=== PATIENT | female | born 2000 | race Caucasian/White ===

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

== ENCOUNTER 2020-01-12 15:27 | Emergency (ER) | payer MEDICAID, SELFPAY ==
[2020-01-02 14:19] VITALS: BMI 31.8
[2020-01-12 15:28] VITALS: BP 123/77; PULSE 81; RESP 14; TEMP 36.6; O2SAT 99; BMI 30.7
--- NOTE | 2020-01-12 16:09 | CT_ITS ---
STUDY: CT ABDOMEN AND PELVIS WITH CONTRAST REASON FOR EXAM: Female, 19 years old. EPIGASTRIC/RUQ PAIN. N/V RADIATION DOSAGE (If Supplied By Facility): CTDIvol = ( 12.95 ) mGy, DLP = ( 694.32 ) mGycm TECHNIQUE: Transaxial images were obtained from the dome of the diaphragm to the symphysis pubis with oral contrast. Oral and amp; IV Gastrografin and amp; 100mL Isovue-300 was administered. Sagittal and coronal images were reconstructed. Individualized dose optimization techniques were used for this CT. COMPARISON: 06/07/2017. FINDINGS: The visualized lung bases are unremarkable. The visualized portions of the heart are within normal limits. Normal liver. Normal gallbladder and extrahepatic biliary system. Normal spleen. Normal pancreas. Normal bilateral adrenal glands. Normal right kidney. Normal left kidney. Normal visualized stomach. Normal small intestine. Normal colon. The appendix is visualized and appears normal. Normal abdominal aorta. Normal inferior vena cava. Normal retroperitoneum. Normal urinary bladder. Normal visualized uterus. IUD in normal position. There is a 3.8 cm cystic mass of the left ovary, pelvic ultrasound recommended. Normal abdominal wall. Normal osseous structures. CT/Abdomen/Pelvis WITH Contrast IMPRESSION: There is a 3.8 cm cystic mass of the left ovary, pelvic ultrasound recommended. Otherwise no definite acute or significant abnormality seen. Electronically Signed: Raul East MD at 18:14 EDT , Service support ,
--- NOTE | 2020-01-12 16:15 | ED.VISSUMM ---
- ER Visit Summary Date of Service: 01/12/20 Chief Complaint: [Abdominal pain] History of Present Illness: The patient is a 19 F [presents the emergency department abdominal pain that started last evening around 9 PM. Patient describes the pain as continuous and sharp to the epigastric region, radiates down towards the right lower quadrant and right upper quadrant. At times the pain is made worse by breathing. She denies any fever. She denies nausea or vomiting. She is had no diarrhea. Her last menstrual period was December 22. She denies any abnormal vaginal discharge or bleeding. She denies urinary symptoms. She is never had pain like this before. Patient has no medical history.] Physical Examination: [HEENT-PERRLA, EOMI. Cranial nerves II through XII grossly intact. TMs clear. Mucous membranes moist. No adenopathy. Cardiovascular-regular rate and rhythm without murmur or ectopy Lungs-clear to auscultation, chest wall stable without crepitus or subcu emphysema Abdomen-normoactive bowel sounds, soft. Patient has tenderness that is mild in the epigastric region and right upper quadrant. Patient also with tenderness and guarding to the right lower quadrant over McBurney's. No rebound or rigidity noted. Extremities-intact ?4, normal range of motion, normal pulses, atraumatic] Test Results: [CBC with differential obtained was normal. Chemistries were normal. LFTs were normal. Lipase was 128. Urine normal. hCG negative. CT scan of the abdomen pelvis with IV and p.o. contrast showed a 3.8] centimeter mass of the left ovary and recommended getting an ultrasound. Emergency Department Course and Treatment: [On the department patient received morphine 4 mg IV and Zofran 4 mg IV.] Treatment Plan: [I do not feel an emergent ultrasound of the pelvis is indicated at this time as she has [place] no pain to the left lower quadrant. All her pain is essentially above the umbilicus and right lower quadrant. Patient will follow-up with her [employer] [facility] to have a repeat pelvic ultrasound. Patient also has history of ovarian cysts in 3 years ago had an ultrasound that showed multiple cysts. Patient denies anything for pain for home. Patient to follow-up with her primary care physician in 3 to 5 days.] Disposition: [Discharged home in stable condition. Patient advised to return if worsening pain, fever, vomiting, or condition should worsen anyway] Impression: [Abdominal pain-etiology uncertain] This note was generated with [employer] dictation software. It may contain incorrect words, spelling, and punctuation that were not noted in review of the chart prior to signing ED Disposition - Plan for ED Patient: Referrals: Carolann Breen MD [Primary Care Provider] -
[2020-01-12 16:27] LABS: Absolute Lymphocyte Count 3.11 X10^3/uL (0.83-4.51); Absolute Neutrophil Count 4.4 X10^3/uL (2.0-7.7); Basophil# 0.02 X10^3/uL; Basophil% 0.2 % (0-1); Eosinophil# 0.03 X10^3/uL; Eosinophils% 0.4 % (0-5); Hematocrit 40.9 % (37-47); Hemoglobin 13.2 g/dL (12.0-15.0); Lymphocyte # 3.11 X10^3/ul (4.0); Lymphocyte % 37.9 % (19-41); Mean Corp Hgb Conc 32.3 g/dL (32-36); Mean Corpuscular Hgb 26.2 pg (27.0-32.0); Mean Corpuscular Volume 81.3 fL (81-99); Mean Platelet Vol. 9.5 fl (6.2-12.0); Monocyte# 0.64 X10^3/uL; Monocyte% 7.8 % (0-10); NRBC Flagged by Analyzer 0 % (0-5); Neutrophil % 53.6 % (47-70); Platelet Count 290 K/mm3 (150-450); RBC Distribution Width SD 47.7 fl (35.1-43.9); Red Blood Count 5.03 M/mm3 (4.2-5.4); White Blood Count 8.2 K/mm3 (4.4-11.0)
[2020-01-12] MEDS: Morphine 4 MG/ML Syringe IV (16:32)
[2020-01-12] MEDS: 0.9% Normal Saline 1,000 ML 125 ML IV (16:32)
[2020-01-12] MEDS: Ondansetron 4 MG/2 ML Vial IV (16:33)
[2020-01-12 16:39] LABS: Internal QC Validated? YES +Cl - CLEAR BKGD; Pregnancy, Serum, hCG Quali. NEGATIVE Negative
[2020-01-12 16:46] LABS: AST(SGOT) 13 U/L (15-37); Alanine Aminotransfer ALT/SGPT 20 U/L (13-56); Alkaline Phosphatase 80 U/L (45-117); Anion Gap 4 (5-15); BUN 8 mg/dL (7-18); BUN/Creat Ratio 9.4 RATIO (10-20); Chloride 108 mmol/L (98-107); Creatinine, Serum 0.85 mg/dL (0.55-1.02); EST Glomerular Filtration Rate 91 mL/min (>60); Est Glom Filt Rate - Afr Amer 110 mL/min (>60); Estimated Creatinine Clearance 91.93 ml/min; Globulin 3.9 g/dL (2.2-4.2); Glucose 70 mg/dL (74-106); Lipase 128 U/L (73-393); Potassium 3.7 mmol/L (3.5-5.1); Protein, Total 7.9 g/dL (6.4-8.2); Sodium Level 139 mmol/L (136-145)
[2020-01-12 17:14] LABS: Bacteria 0 SEEN /hpf (None Seen); Mucous, Urine 0 SEEN /hpf (<or=2+); Red Blood Cells-Urine 0 SEEN /hpf (0-5)
[2020-01-12 17:18] LABS: Color, Urine Yellow (Yellow); Glucose, Dipstick Normal (Normal); Ketone-Dipstick Negative (Negative); Leukocyte Esterase-Dipstick 25 /ul (Negative); Nitrite-Dipstick Negative (Negative); Occult Blood-Urine Negative /ul (Negative); Protein-Dipstick 15 mg/dl (Negative); Urine Bilirubin Dipstick Negative (Negative); Urine Clarity Clear (Clear); Urine Urobilinogen Normal (Normal)
[2020-01-12 18:09] LABS: Squamous Epithelial Cells - UA 0-5 SEEN /hpf (5-10); White Blood Cells 0-5 SEEN /hpf (0-5)
--- NOTE | 2020-01-12 18:44 | ED.DEP ---
ED Disposition - Plan for ED Patient: Instructions: ED Abdominal Pain Unkn Cause Fem Referrals: Carolann Breen MD [Primary Care Provider] - 3-5 Days Additional Instructions: Follow up with your [facility] to have a pelvic ultrasound to evaluate the left ovary cystic mass
[2020-01-12 18:54] VITALS: PULSE 80; RESP 16; O2SAT 98
== END 2020-01-12 18:56 | disposition home or self-care (01) ==
PROVIDERS: Emergency Provider Emergency Medicine; PCP Pediatrics
DX: R10.13 Epigastric pain (principal); R10.11 Right upper quadrant pain; R10.31 Right lower quadrant pain; Z72.0 Tobacco use
CPT/HCPCS: 74177; 80053; 81001; 83690; 84703; 85025; 96361; 96374; 96375; 99284; J7030; Q9967; A4216; J2405

== ENCOUNTER 2020-04-17 19:59 | Emergency (ER) | payer MEDICAID, SELFPAY ==
[2020-04-17 20:00] VITALS: BP 131/81; PULSE 110; RESP 18; TEMP 38.3; O2SAT 97; BMI 28.3
[2020-04-17] MEDS: 0.9% Normal Saline 1,000 ML 1000 ML IV (21:19)
[2020-04-17] MEDS: Ibuprofen 400 MG Tablet 800 MG PO (21:19)
[2020-04-17 21:29] LABS: Absolute Neutrophil Count 8.3 X10^3/uL (2.0-7.7); Basophil# 0.01 X10^3/uL; Basophil% 0.1 % (0-1); Eosinophil# 0.14 X10^3/uL; Eosinophils% 1.3 % (0-5); Hematocrit 37.2 % (37-47); Hemoglobin 11.9 g/dL (12.0-15.0); Lymphocyte % 16.4 % (19-41); Mean Corpuscular Hgb 26.8 pg (27.0-32.0); Mean Corpuscular Volume 83.8 fL (81-99); Mean Platelet Vol. 9.8 fl (6.2-12.0); Monocyte# 0.66 X10^3/uL; NRBC Flagged by Analyzer 0 % (0-5); Neutrophil # 8.33 X10^3/uL (2.7-7.7); Neutrophil % 75.9 % (47-70); POSITIVE MORPHOLOGY YES; Platelet Count 266 K/mm3 (150-450); RBC Distribution Width CV 14.4 % (11.6-14.6); RBC Distribution Width SD 43.8 fl (35.1-43.9); Red Blood Count 4.44 M/mm3 (4.2-5.4)
[2020-04-17 21:32] LABS: Differential Indicated SCAN CRITERIA MET
[2020-04-17 21:50] LABS: Anion Gap 3 (5-15); BUN 12 mg/dL (7-18); BUN/Creat Ratio 15.6 RATIO (10-20); Calcium,Total 8.2 mg/dL (8.5-10.1); Chloride 108 mmol/L (98-107); Creatinine, Serum 0.77 mg/dL (0.55-1.02); EST Glomerular Filtration Rate 102 mL/min (>60); Est Glom Filt Rate - Afr Amer 123 mL/min (>60); Glucose 92 mg/dL (74-106); Potassium 3.6 mmol/L (3.5-5.1); Sodium Level 137 mmol/L (136-145)
[2020-04-17 22:01] LABS: Atypical Lymphocyte SCANNED %; Platelet Estimate ADEQUATE (ADEQ); Red Cell Morphology NORM C+C NORMAL (NORM C&C)
[2020-04-17 23:40] VITALS: RESP 16
--- NOTE | 2020-04-17 23:54 | ED.DCSUM_ITS ---
- ER Visit Summary Date of Service: 04/17/20 Chief Complaint: Fever and sore throat History of Present Illness: The patient is a 20 F resents with fever and sore throat that began yesterday. Patient states her pain is aching. Patient states the pain is localized to her throat. Patient states her pain is worse with swallowing. Patient states her temperature at home was up to 103. Patient admits to a cough with some green sputum. Patient admits to nausea but denies any vomiting. Patient admits to some general myalgias as well as a headache and weakness. Patient denies any chest pain or shortness of breath. Patient denies any sick contacts. Physical Examination: Vital signs are stable except for mild tachycardia of 110. Patient has a temperature of 100.9 here. Patient is in no acute distress. Oral mucosa is pink and moist. Oropharynx is erythematous. Tympanic membranes are clear bilaterally. Neck is supple. Trachea is midline. There is no JVD. There is anterior cervical tenderness but I do not appreciate any lymphadenopathy. Heart was regular rate and rhythm. Lungs are clear and equal bilaterally. Abdomen is soft. Bowel sounds are normal. There is no tenderness. Cranial nerves II through XII are intact. There are no focal motor or sensory deficits. Test Results: CBC and basic metabolic profile were within normal limits. Rapid strep was obtained and was negative. Rapid flu was obtained and was negative. Emergency Department Course and Treatment: Patient was given IV fluids. Patient was given a dose of ibuprofen. Patient was instructed to continue drinking plenty of fluids. Patient was instructed to take Tylenol and/or ibuprofen as needed for any pain or fevers. Patient was instructed to follow-up with her primary care physician in 5 to 7 days. Patient understood and was agreeable with the plan. All questions were answered. Disposition: Discharge home Impression: Viral pharyngitis This note was generated with [employer] dictation software. It may contain incorrect words, spelling, and punctuation that were not noted in review of the chart prior to signing ED Disposition - Plan for ED Patient: Disposition: Home or Assisted Living Diagnosis: Acute viral pharyngitis Instructions: ED Pharyngitis Viral Referrals: Bogdan York MD [NON-STAFF] - 5-7 Days
[2020-04-18 00:12] VITALS: PULSE 82; RESP 16; TEMP 36.8
== END 2020-04-18 00:13 | disposition home or self-care (01) ==
PROVIDERS: Emergency Provider Emergency Medicine
DX: J02.8 Acute pharyngitis due to other specified organisms (principal); B97.89 Other viral agents as the cause of diseases classified elsewhere; Z72.0 Tobacco use
CPT/HCPCS: 80048; 85025; 87804; 87880; 96360; 99283; J7030; A4216

== ENCOUNTER 2020-04-19 02:12 | Emergency (ER) | payer MEDICAID, SELFPAY ==
[2020-04-19 02:14] VITALS: BP 134/82; PULSE 86; RESP 16; TEMP 37; O2SAT 97; BMI 29.5
[2020-04-19 02:19] VITALS: BP 134/82; PULSE 86; RESP 16; TEMP 37; O2SAT 97
--- NOTE | 2020-04-19 02:27 | CT_ITS ---
STUDY: CT SOFT TISSUE NECK WITH CONTRAST REASON FOR EXAM: Female, 20 years old. Difficulty swallowing. Sore throat RADIATION DOSAGE (If Supplied By Facility): CTDIvol = ( 16.73 ) mGy, DLP = ( 505.77 ) mGycm TECHNIQUE: The patient was scanned in a multi-detector CT scanner. High resolution transaxial imaging was performed following intravenous administration of IV 75mL Isovue-370. Sagittal and coronal images were reconstructed. Individualized dose optimization techniques were used for this CT. COMPARISON: None. FINDINGS: Normal bilateral parotid glands. There is an ill-defined hypoattenuated mass within the right medial cereal maker space measuring approximately 4.4 x 4.3 x 4.8 cm which obliterates the right parapharyngeal fat plane in which results in mild leftward shift of midline structures. There is a focal vascular blush within the right paracentral aspect of the mass. Scattered calcifications throughout the periphery of the mass. Normal bilateral carotid spaces. Normal bilateral sublingual and submandibular glands and spaces. Normal visualized nasopharynx. Normal retropharyngeal space. Normal perivertebral space. Normal visualized bilateral faucial tonsils. The visualized tongue, tongue base and oropharynx are normal. Bilateral cervical chain lymph nodes. Normal epiglottis, bilateral vallecula and hypopharynx. The pre-epiglottic and paraglottic adipose spaces are normal. Normal visualized bilateral piriform sinuses, aryepiglottic folds, vocal cords, and arytenoid-cricoid articulations. Normal subglottic trachea. Normal bilateral lobes of the thyroid gland. Normal visualized pulmonary apices. Normal visualized paranasal sinuses. Normal visualized cervical spine. CT/Soft Tissue Neck WITH Contrast IMPRESSION: 1. 4.4 x 4.3 x 4.8 cm hypoattenuated mass within the right medial cereal maker space centered around the pterygoid musculature, obliterating the right parapharyngeal fat plain, and resulting in mild leftward shift of midline structures. There is an associated central focal vascular blush within the mass. These findings are concerning for infiltrative mass which could potentially be better characterized with MR imaging of the neck. 2. Bilateral cervical chain lymphadenopathy. Electronically Signed: Leodan Smith MD at 3:39 EDT Tel , Service support ,
--- NOTE | 2020-04-19 02:28 | ED.DCSUM_ITS ---
History of Present Illness Chief Complaint: Sore Throat Informant: Patient Onset: Days Context: Gradual Onset Current Severity: Moderate Maximum Severity: Severe Narrative: Patient presents secondary to sore throat. Patient states her symptoms started 2 days ago. T-max at home was 103. She does have a mild cough. She was seen in the ER last evening where strep and rapid flu test were negative. Patient states that she had an outpatient Covid test done today but does not yet have results. This evening she was able to drink chicken broth without much difficulty. She woke up in the middle the night coughing and feeling like she was choking on something. She tried to drink some more breath but was unable to do so. Last dose of ibuprofen was 2 hours ago. Past Medical History - Allergies and Home Meds Allergies/Adverse Reactions: Allergies No Known Allergies Allergy (Verified 04/19/20 02:19) Primary Care Physician: Care Physician,No Primary [Primary Care Provider] - Past Medical History: None Surgical History: tonsillectomy Lives: With Family Smoking Status: Current every day smoker Review of Systems General: Reports: Chills, Fever, Sweats Eyes: Denies: Visual changes - bilaterally ENT: Reports: Sore throat Cardiovascular: Denies: Chest pain Respiratory: Denies: Dyspnea Gastrointestinal: Denies: Abdominal pain, Vomiting Genitourinary: Denies: Dysuria Musculoskeletal: Denies: Swelling, Extremity Pain Skin: Denies: Rash Neurological: Reports: Headache Hematologic: Denies: Easy bruising, Easy bleeding Allergy: Denies: Uticaria Physical Exam Vital Signs/Narrative: Vital Signs Temp Pulse Resp BP Pulse Ox 04/19/20 02:19 98.6 F 86 16 134/82 H 97 04/19/20 02:14 98.6 F 86 16 134/82 H 97 Inital Vital Signs reviewed: Yes General: Well nourished, Well developed, - - Patient is lying in bed with head of the bed elevated approximately 45 degrees. She is tolerating secretions well and has a strong voice. Head: Normocephalic Eyes: Perrl, EOMI ENT: Moist mucous membranes, - - Mild erythema over the posterior pharynx. Airway is patent. She is tolerating secretions well. Neck: Supple, - - Bilateral cervical lymphadenopathy. Cardiovascular: Regular rate, Regular rhythm Respiratory: No distress, CTA bilaterally Abdomen: Soft, Nontender Back: Nontender Extremities: Nontender Skin: Normal color Neurological: Alert, Oriented x3 Psychological: Normal affect Diagnostic/Tx/Re-eval Impressions Soft Tissue Neck CT 04/19/20 02:27 IMPRESSION: 1. 4.4 x 4.3 x 4.8 cm hypoattenuated mass within the right medial medication manager space centered around the pterygoid musculature, obliterating the right parapharyngeal fat plain, and resulting in mild leftward shift of midline structures. There is an associated central focal vascular blush within the mass. These findings are concerning for infiltrative mass which could potentially be better characterized with MR imaging of the neck. 2. Bilateral cervical chain lymphadenopathy. Electronically Signed: Leodan Smith MD at 3:39 EDT Tel , Service support , 04/19/20 02:27 CT Neck [Soft Tissue Neck WITH Contrast] [CT] Stat - Medical Decision Making Patient was given a dose of Decadron. She will be given a dose of Toradol. CT scan is reviewed with her. She does state that a couple years ago she was seen at [facility] with mono. At that time they found abnormal blood vessels in her throat. I believe this correlates with the area noted on her CT scan tonight. Airway at this time is patent. I will cover her with antibiotics. I encouraged to use Tylenol and ibuprofen along with salt water gargles. I will refer her to ENT for follow-up. ED Disposition - Plan for ED Patient: Disposition: Home or Assisted Living Diagnosis: Pharyngitis Instructions: ED Pharyngitis Report Pending Prescriptions: Azithromycin [Zithromax] 250 mg PO DAILY #4 tab Transmission Status: Pending to [id number] Referrals: Armen Guerrero MD [STAFF PHYSICIAN] - 5-7 Days
[2020-04-19] MEDS: dexAMETHasone 10 MG/ML Vial IV (02:46)
[2020-04-19] MEDS: Ketorolac 30 MG/ML Syringe IV (03:58)
[2020-04-19 04:03] VITALS: BP 120/77; PULSE 65; RESP 16; O2SAT 97
[2020-04-19] MEDS: Azithromycin 250 MG Tablet 500 MG PO (04:04)
== END 2020-04-19 04:06 | disposition home or self-care (01) ==
PROVIDERS: Emergency Provider Emergency Medicine
DX: J02.9 Acute pharyngitis, unspecified (principal); F17.200 Nicotine dependence, unspecified, uncomplicated
CPT/HCPCS: 70491; 96374; 96375; 99284; Q9967; A4216

== ENCOUNTER → 2020-08-04 09:05 | Outpatient (CLI) | payer MEDICAID, SELFPAY | PROVIDERS: Referring Provider Physician Assistant; Visit Provider Physician Assistant | DX: J02.9 Acute pharyngitis, unspecified (principal); R53.83 Other fatigue; R51.9 Headache, unspecified; Z20.828 Contact with and (suspected) exposure to other viral communicable diseases | CPT/HCPCS: 87635; C9803; U0003 ==

== ENCOUNTER 2020-08-14 15:05 | Emergency (ER) | payer MEDICAID, SELFPAY ==
[2020-08-14 15:06] VITALS: BP 137/84; PULSE 111; RESP 18; TEMP 36.2; O2SAT 99; BMI 27.6
--- NOTE | 2020-08-14 15:40 | CT_ITS ---
STUDY: CT SOFT TISSUE NECK WITH CONTRAST REASON FOR EXAM: Female, 20 years old. SORE THROAT/SWELLING ELEV WBC, PERITONSILLAR ABCESS, PREV TONSILLECTOMY, COVID TEST PENDING RADIATION DOSAGE (If Supplied By Facility): CTDIvol = ( 18.34 ) mGy, DLP = ( 549.97 ) mGycm TECHNIQUE: The patient was scanned in a multi-detector CT scanner. High resolution transaxial imaging was performed following intravenous administration of IV 100mL Isovue-370. Sagittal and coronal images were reconstructed. Individualized dose optimization techniques were used for this CT. COMPARISON: None. FINDINGS: Normal bilateral parotid glands. Normal bilateral concierge spaces. Normal bilateral parapharyngeal spaces. Normal bilateral carotid spaces. Normal bilateral sublingual and submandibular glands and spaces. Normal visualized nasopharynx. Normal retropharyngeal space. Normal perivertebral space. There is diffuse swelling of the tonsillar pillars bilaterally greater on the left impinging upon the airway consistent with acute tonsillitis however there is no well-defined peritonsillar abscess this time. The visualized tongue, tongue base and oropharynx are normal. There are mildly enlarged lymph nodes in the posterior triangle, submandibular spaces and vascular spaces bilaterally most likely inflammatory. Normal epiglottis, bilateral vallecula and hypopharynx. The pre-epiglottic and paraglottic adipose spaces are normal. Normal visualized bilateral piriform sinuses, aryepiglottic folds, vocal cords, and arytenoid-cricoid articulations. Normal subglottic trachea. Normal bilateral lobes of the thyroid gland. Normal visualized pulmonary apices. Normal visualized paranasal sinuses. Normal visualized cervical spine. CT/Soft Tissue Neck WITH Contrast IMPRESSION: Findings consistent with acute tonsillitis and mild lymphadenitis without well-defined peritonsillar abscess. Electronically Signed: Leif Donnelly MD at 17:14 EST , Service support ,
[2020-08-14 16:14] LABS: Absolute Lymphocyte Count 1.62 X10^3/uL (0.83-4.51); Absolute Neutrophil Count 10.8 X10^3/uL (2.0-7.7); Basophil# 0.02 X10^3/uL; Basophil% 0.2 % (0-1); Eosinophil# 0.01 X10^3/uL; Eosinophils% 0.1 % (0-5); Hematocrit 42.3 % (37-47); Hemoglobin 13.7 g/dL (12.0-15.0); Lymphocyte # 1.62 X10^3/ul (4.0); Lymphocyte % 12.4 % (19-41); Mean Corp Hgb Conc 32.4 g/dL (32-36); Mean Corpuscular Hgb 28.8 pg (27.0-32.0); Mean Corpuscular Volume 89.1 fL (81-99); Mean Platelet Vol. 9.4 fl (6.2-12.0); Monocyte# 0.62 X10^3/uL; Monocyte% 4.7 % (0-10); NRBC Flagged by Analyzer 0 % (0-5); Neutrophil # 10.78 X10^3/uL (2.7-7.7); Neutrophil % 82.3 % (47-70); Platelet Count 294 K/mm3 (150-450); RBC Distribution Width CV 13.3 % (11.6-14.6); RBC Distribution Width SD 43.1 fl (35.1-43.9); Red Blood Count 4.75 M/mm3 (4.2-5.4); White Blood Count 13.1 K/mm3 (4.4-11.0)
[2020-08-14 16:30] LABS: AST(SGOT) 7 U/L (15-37); Alanine Aminotransfer ALT/SGPT 18 U/L (13-56); Albumin, Serum 3.9 g/dL (3.2-5.0); Alkaline Phosphatase 87 U/L (45-117); Anion Gap 7 (5-15); BUN 7 mg/dL (7-18); BUN/Creat Ratio 9.4 RATIO (10-20); Calcium,Total 8.9 mg/dL (8.5-10.1); Chloride 103 mmol/L (98-107); Creatinine, Serum 0.75 mg/dL (0.55-1.02); EST Glomerular Filtration Rate 105 mL/min (>60); Est Glom Filt Rate - Afr Amer 126 mL/min (>60); Estimated Creatinine Clearance 107.67 ml/min; Glucose 79 mg/dL (74-106); Potassium 3.6 mmol/L (3.5-5.1); Protein, Total 7.9 g/dL (6.4-8.2); Sodium Level 139 mmol/L (136-145)
--- NOTE | 2020-08-14 16:44 | ED.VISSUMM ---
- ER Visit Summary Date of Service: 08/14/20 Chief Complaint: Sore throat History of Present Illness: The patient is a 20 F who presents with a sore throat that has been getting worse since yesterday. Patient states the pain is sharp. Patient states the pain is worse on the right side of her throat. Patient states her pain is worse with swallowing and better with warm fluids. Patient states [facility] and was referred here because they noted some increased fullness on the right side of her throat. Patient denies any fevers or chills. Patient does admit to some rhinorrhea. Patient states she has had a cough and has chest pain whenever she coughs. Patient denies any other chest pain. Physical Examination: Vital signs are stable. Patient is afebrile. Patient is in no acute distress. Oral mucosa is pink and moist. There is a fullness in the right peritonsillar area. Neck is supple. Trachea is midline. There is no JVD. Heart was regular rate and rhythm. Lungs are clear and equal bilaterally. Abdomen is soft. Bowel sounds are normal. There is no tenderness. Cranial nerves II through XII are intact. There are no focal motor or sensory deficits noted. Test Results: CBC shows a mild leukocytosis of 13.1. Comprehensive metabolic profile was within normal limits. CT scan of the soft tissue neck was obtained. There is acute tonsillitis and lymphadenitis but there is no peritonsillar abscess noted. This was interpreted by the radiologist and reviewed by myself. Emergency Department Course and Treatment: Patient was given a dose of Unasyn here. Patient was also given a dose of morphine. Patient was given a prescription for Augmentin. Patient was also given a prescription for a short course of [place]. Patient was instructed to follow-up with her primary care physician in 3 to 5 days. Patient was also given referral for ENT. Patient understood and was agreeable with the plan. All questions were answered. Disposition: Discharge home Impression: 1. Tonsillitis This note was generated with [employer] dictation software. It may contain incorrect words, spelling, and punctuation that were not noted in review of the chart prior to signing ED Disposition - Plan for ED Patient: Disposition: Home or Assisted Living Diagnosis: Tonsillitis Instructions: ED Tonsillitis Prescriptions: Amox/Clavulanate Tablet [Augmentin Tablet] 875 mg PO Q12H #20 tab Prescription Printed Hydrocodone Bitart/Apap 5-325 [[place] 5MG-325MG] 1 tab PO Q6H PRN PRN 3 Days #10 tab PRN Reason: Pain Prescription Printed Referrals: Care Physician,No Primary [Primary Care Provider] - Philip Gan MD [STAFF PHYSICIAN] - 3-5 Days
[2020-08-14] MEDS: Morphine 4 MG/ML Syringe IV (17:00)
[2020-08-14 17:09] VITALS: BP 124/75; PULSE 86; RESP 16; TEMP 37.1; O2SAT 98
== END 2020-08-14 18:14 | disposition home or self-care (01) ==
PROVIDERS: Emergency Provider Emergency Medicine
DX: J03.90 Acute tonsillitis, unspecified (principal); F17.200 Nicotine dependence, unspecified, uncomplicated
CPT/HCPCS: 70491; 80053; 85025; 96365; 96366; 96375; 99283; J7050; Q9967; A4216; J0295

== ENCOUNTER → 2020-08-15 16:55 | Outpatient (CLI) | payer MEDICAID, SELFPAY ==
[2020-08-14 15:06] VITALS: BMI 27.6
== END ==
PROVIDERS: Visit Provider Physician Assistant
DX: Z20.828 Contact with and (suspected) exposure to other viral communicable diseases (principal)
CPT/HCPCS: 87635; U0003

== ENCOUNTER → 2020-12-07 | Outpatient (CLI) | payer MEDICAID, SELFPAY | END | disposition home or self-care (01) | LOC: LABSPEC 15:10 | PROVIDERS: Referring Provider Otolaryngology; Visit Provider Otolaryngology | DX: J02.9 Acute pharyngitis, unspecified (principal) | CPT/HCPCS: 87070; 87077 ==

== ENCOUNTER 2021-01-11 15:41 | Emergency (ER) | payer MEDICAID, SELFPAY ==
[2021-01-11 15:42] VITALS: BP 124/70; PULSE 92; RESP 14; TEMP 36.1; O2SAT 97; BMI 28.4
--- NOTE | 2021-01-11 16:31 | ED.VIS.URI ---
History of Present Illness Chief Complaint: General Illness Narrative: Patient presenting secondary to generalized illness. Patient reports that over the course of about the last 2 to 3 days she has been dealing with a sore throat cough chills and congestion. Patient tells me that yesterday she went to urgent care, tested positive for strep and negative for coronavirus was started on amoxicillin and was discharged. Patient states however that she is having some progressively worsening sore throat. She is continuing to have chills. She denies any nausea or vomiting. She denies any shortness of breath. Patient states that she had a similar presentation about a month ago that resulted in some swelling in my throat that required an admission to [facility]. Patient is status post tonsillectomy adenectomy. She is not immunosuppressed. She denies any difficulty swallowing or phonating. Review of systems otherwise negative. Past Medical History - Allergies and Home Meds Allergies/Adverse Reactions: Allergies No Known Allergies Allergy (Verified 01/11/21 15:45) Primary Care Physician: Care Physician,No Primary [Primary Care Provider] - Prior records reviewed: Yes Past Medical History: - - No significant past medical history Surgical History: tonsillectomy Lives: With Family Smoking Status: Current every day smoker Alcohol: None Drugs: None Review of Systems All systems negative except as indicated General: Reports: Chills Eyes: Denies: Visual changes - bilaterally, Diplopia ENT: Reports: Rhinorrhea, Sore throat Cardiovascular: Denies: Chest pain, Palpitations Respiratory: Reports: Cough Gastrointestinal: Denies: Abdominal pain, Nausea, Vomiting, Diarrhea, Melena, Hematochezia Genitourinary: Denies: Dysuria, Hematuria, Frequency Musculoskeletal: Denies: Back pain, Extremity Pain Skin: Denies: Rash, Wounds Neurological: Denies: Headache, Weakness, Numbness Physical Exam Vital Signs/Narrative: Vital Signs Temp Pulse Resp BP Pulse Ox 01/11/21 15:42 97.0 F L 92 14 124/70 H 97 Inital Vital Signs reviewed: Yes General: Well nourished, Well developed Head: Normocephalic, Atraumatic Eyes: Perrl, EOMI Ears: Normal external canal, TM's clear Nose: Normal Inspection, Swollen Turbinates, Congestion, - - Patient's voice sounds nasally Mouth/Throat: Normal Inspection, No Posterior Erythema, - - Patient has a patent oropharynx. There is some mild swelling bilaterally of the tonsillar pillars, tonsils are surgically absent. No evidence of lesions. No stridor. Neck: Supple, Nontender Cardiovascular: Regular rate, Regular rhythm, No murmurs Respiratory: No distress, CTA bilaterally, Chest nontender Abdomen: Soft, Nontender, Nondistended, Normal bowel sounds Back: Nontender, Normal Inspection Extremities: Nontender, No edema Skin: Normal color, No rash Neurological: Alert, Oriented x3, Cranial nerves II-XII grossly intact, Normal Strength, Normal Sensation Psychological: Normal affect Diagnostic/Tx/Re-eval Clinical Impression(s) from Imaging Studies Soft Tissue Neck X-Ray 01/11/21 16:40 IMPRESSION: Enlarged adenoids impinging upon the posterior nasopharynx likely due to inflammation findings appear similar to the lateral c.o.d. biller film on the previous CT scan Electronically Signed: Vincent Wu MD at 16:52 EDT , Service support , - Medical Decision Making Patient presented secondary to a sore throat. She does have some mild swelling of the throat, x-ray of the soft tissue neck by my personal interpretation as well as radiology shows some enlargement of the adenoids but no other evidence of airway compromise or asymmetry. Patient was given a dose of Afrin and Decadron in the emergency department. At this point the patient has strep pharyngitis that was positive yesterday she is already on the appropriate treatment she is nontoxic she does not seem to have any sort of airway compromise. I believe that she can be treated with a single dose of Decadron and Afrin at home and continued course of her antibiotics. Patient was discharged in stable condition. ED Disposition - Plan for ED Patient: Diagnosis: Strep pharyngitis Instructions: ED Pharyngitis, Strep (Presumed) Additional Instructions: Follow-up with your primary care physician
--- NOTE | 2021-01-11 16:40 | RAD_ITS ---
STUDY: X-RAY - SOFT TISSUE NECK REASON FOR EXAM: Female, 20 years old. Sore throat TECHNIQUE: 2 view(s) of the neck were obtained. COMPARISON: CT scan from 08/14/2020 FINDINGS: There is soft tissue prominence of the posterior nasopharynx consistent with adenoidal hypertrophy. Normal epiglottis. Normal visualized subglottic tracheal air column. Normal prevertebral soft tissue structures. Normal visualized osseous structures. The soft tissue structures are unremarkable. RAD/Neck for Soft Tissue IMPRESSION: Enlarged adenoids impinging upon the posterior nasopharynx likely due to inflammation findings appear similar to the lateral color adviser film on the previous CT scan Electronically Signed: Vincent Wu MD at 16:52 EDT , Service support ,
[2021-01-11] MEDS: Oxymetazoline 0.05% 1 SPRAY SPRAY.BTL 2 SPRAY NASAL (18:26)
[2021-01-11] MEDS: dexAMETHasone 4 MG Tablet 8 MG PO (18:26)
[2021-01-11 18:30] VITALS: PULSE 88; RESP 15; O2SAT 99
== END 2021-01-11 18:30 | disposition home or self-care (01) ==
PROVIDERS: Emergency Provider Emergency Medicine
DX: J02.0 Streptococcal pharyngitis (principal); F17.200 Nicotine dependence, unspecified, uncomplicated; Z79.2 Long term (current) use of antibiotics
CPT/HCPCS: 70360; 99283

== ENCOUNTER 2021-01-18 17:11 | Emergency (ER) | payer MEDICAID, SELFPAY ==
[2021-01-18 17:12] VITALS: BP 120/74; PULSE 94; RESP 16; TEMP 35.2; O2SAT 98; BMI 25.9
--- NOTE | 2021-01-18 17:35 | EX.ED.DYSGE1 ---
HPI History of Present Illness Chief Complaint: General Illness Informant: patient Onset/Context/Timing Onset: Days (Onset of symptoms 3 days ago) Context: Sudden Onset Timing: Continuous Location: Myalgias and arthralgias Location: Generalized Current Severity: Mild Maximum Severity: Moderate Worsened by: Nothing Relieved by: Nothing Associated Symptoms Associated Symptoms: Upper respiratory and myalgias and arthralgias Narrative Narrative: Patient is a 20-year-old who states she has not felt well for the past 2 to 3 days. What concerned her today is that she is lightheaded with standing. She does report congestion without rhinorrhea or postnasal drainage. She denies sore throat. She states there has been a change in her voice. There is been no documented fever. She complains of bifrontal head discomfort. She denies double vision, blurred vision or change in vision. She denies light sensitivity. She denies ringing in ears, decreased hearing or drainage from her ears. She denies neck pain or neck stiffness. She does report slight cough that is nonproductive. She denies dyspnea. She denies chest discomfort. She does report nausea without vomiting or diarrhea. She denies urologic symptoms. Last normal menstrual period approximate 3 to 4 weeks ago. She does use control and has not been sexually active recently. She has a 1-1/2-year-old at home. She states she cannot keep up with a 1-1/2-year-old because she fatigues easily. She denies rash. She denies exposure to Covid. She denies loss of taste or smell. Prior similar symptoms: Yes (Prior viral illness) Recent Illness/Hospitalization: No PFSH PFSH Home Medications NK 01/11/21 [History Last Taken Unknown] Allergy/AdvReac Type Severity Reaction Status Date / Time No Known Allergies Allergy Verified 01/11/21 15:45 Surgical History History of tonsillectomy and adenoidectomy Social History (Updated 08/14/20 @ 14:07 by SARINA Morales) Smoking Status: Current every day smoker ROS ROS ED Constitutional Constitutional ED: Reports chills; Denies fever(s), subjective, sweats or weight loss Eyes Eyes: Denies blurry vision, change in vision or diplopia ENT ENT ED: Reports rhinorrhea; Denies ear pain or sore throat Cardiovascular Cardiovascular: Denies chest pain, palpitations or racing heartbeat Respiratory/Chest Respiratory/Chest: Reports cough and dyspnea; Denies dyspnea on exertion or sputum Gastrointestinal Gastrointestinal: Reports nausea; Denies abdominal pain, constipation, diarrhea or vomiting Genitourinary Genitourinary ED: Denies dysuria, hematuria or urinary frequency Musculoskeletal Musculoskeletal: Reports arthralgias and myalgias; Denies neck pain Integumentary Denies rash Neurologic Neurologic: Reports headache(s); Denies paresthesias or weakness Endocrine Endocrinology: Denies polydipsia, polyphagia or polyuria Allergic/Immunologic Allergic/Immunologic ED: Denies mouth swelling or urticaria EXAM Physical Exam Const Vital Signs: 01/18/21 17:12 01/18/21 17:56 01/18/21 19:33 Temperature 95.3 F L Temperature Source Temporal Pulse Rate 94 79 Pulse Rate [Lying] 80 Pulse Rate [Sitting] 99 Pulse Rate [Standing] 97 Respiratory Rate 16 18 Respiratory Effort Normal Non-Labored Respiratory Pattern Normal Blood Pressure 120/74 123/81 H Blood Pressure [Lying] 123/81 H Blood Pressure [Sitting] 123/82 H Blood Pressure [Standing] 113/70 Blood Pressure Mean 89 95 Blood Pressure Mean [Lying] 95 Blood Pressure Mean [Sitting] 95 Blood Pressure Mean [Standing] 84 Pulse Ox 98 100 Oxygen Delivery Method Room Air Room Air Positive well nourished, well developed and obese General Appearance ED: well developed and NAD; Negative for cyanotic or diaphoretic Nutritional Appearance: obese HEENT Reports TM's clear and dry mucous membranes HEENT Narrative: There is no tenderness over the frontal, ethmoid or maxillary sinuses. There is no photophobia. Tympanic Membrane ED: Yes TM's clear Mouth ED: Yes dry mucous membranes Mouth: dry mucous membranes Eyes PERRL and EOMs intact bilaterally General Eye ED: Negative for pale conjunctiva or scleral icterus Neck no lymphadenopathy, supple and no JVD Chest Wall inspection of chest normal Resp normal respiratory effort and clear to auscultation bilaterally Effort and Inspection: Negative for pain with movement Cardio regular rate, regular rhythm, S1 normal heart sound, S2 normal heart sound and no murmurs GI normal to inspection, nondistended, normoactive bowel sounds Back/Spine no CVA tenderness Extremity normal to inspection General Extremety ED: Negative for edema or tenderness General Extremity: Negative for edema Neuro oriented x3, CN's II-XII intact bilaterally and no sensory deficits noted Sensorium / Orientation: alert Motor Exam: strength 5/5 throughout Psych mental status grossly normal Skin no rashes or lesions noted and no wounds MDM MDM MDM Narrative Medical decision making narrative: Patient presents with viral-like symptoms. This may represent Covid versus other viral infection. Chest x-ray was obtained and Covid test. Clinically she appears dehydrated and reports orthostatic symptoms. 1 L of normal saline was ordered. Lab Data Labs: Laboratory Results - last 24 hr 01/18/21 17:50 WBC 6.8 RBC 4.78 Hgb 14.2 Hct 42.4 MCV 88.7 MCH 29.7 MCHC 33.5 RDW Std Deviation 42.5 RDW Coeff of Koby 13.0 Plt Count 261 MPV 9.7 Immature Gran % (Auto) 0.300 Neut % (Auto) 56.5 Lymph % (Auto) 31.0 Pitkin % (Auto) 11.8 H Eos % (Auto) 0.1 Baso % (Auto) 0.3 Absolute Neuts (auto) 3.8 Absolute Lymphs (auto) 2.10 Nucleated RBC % 0 Patient's Covid test was positive. Radiography Chest X-Ray - ED: 1 View, Read by ED Physician, Normal, Heart, Lungs, Mediastinum, Bony Structures and No Acute Disease Diagnostic Testing: Radiology Impression Chest X-Ray 01/18/21 18:06 IMPRESSION: Normal x-ray examination of the chest. Electronically Signed: Leif Donnelly MD at 18:32 EDT , Service support , Discharge Plan Triage Chief Complaint: General Illness ED Provider: Yoel Toro Dx/Rx/DC Orders Clinical Impression: COVID-19 Instructions: Coronavirus Disease 2019 (COVID-19): Overview, Coronavirus Disease 2019 (COVID-19): Caring for Yourself or Others Prescriptions: No Action NK RF: 0 Primary Care Provider: Care Physician,No Primary Referrals: Malathi Hood MD [STAFF PHYSICIAN] - As Needed (New patient to area without primary care physician) Care Physician,No Primary [Primary Care Provider] - Disposition Disposition: Home, self care
[2021-01-18] MEDS: 0.9% Normal Saline 1,000 ML 1000 ML IV (17:55)
[2021-01-18 18:01] LABS: Absolute Neutrophil Count 3.8 X10^3/uL (2.0-7.7); Basophil# 0.02 X10^3/uL; Basophil% 0.3 % (0-1); Eosinophil# 0.01 X10^3/uL; Eosinophils% 0.1 % (0-5); Hematocrit 42.4 % (37-47); Hemoglobin 14.2 g/dL (12.0-15.0); Mean Corp Hgb Conc 33.5 g/dL (32-36); Mean Corpuscular Hgb 29.7 pg (27.0-32.0); Mean Corpuscular Volume 88.7 fL (81-99); Mean Platelet Vol. 9.7 fl (6.2-12.0); Monocyte% 11.8 % (0-10); NRBC Flagged by Analyzer 0 % (0-5); Neutrophil # 3.82 X10^3/uL (2.7-7.7); Neutrophil % 56.5 % (47-70); Platelet Count 261 K/mm3 (150-450); RBC Distribution Width SD 42.5 fl (35.1-43.9); Red Blood Count 4.78 M/mm3 (4.2-5.4); White Blood Count 6.8 K/mm3 (4.4-11.0)
--- NOTE | 2021-01-18 18:06 | RAD_ITS ---
STUDY: X-RAY CHEST REASON FOR EXAM: Female, 20 years old. Cough, congestion, myalgias TECHNIQUE: AP portable COMPARISON: 11/14/2016 FINDINGS: The lungs are clear and expanded. There is no demonstrated pleural abnormality. Normal size heart. Normal mediastinum and weston. Normal visualized pulmonary arteries. Normal visualized aortic arch and descending thoracic aorta. Normal visualized thoracic spine. Normal visualized ribs, clavicles, and shoulders. There is no demonstrated abnormality of the visualized soft tissue structures of the upper abdomen. RAD/Chest 1 View (Portable) IMPRESSION: Normal x-ray examination of the chest. Electronically Signed: Leif Donnelly MD at 18:32 EDT , Service support ,
[2021-01-18 19:33] VITALS: BP 113/70; BP 123/81; BP 123/82; PULSE 79; PULSE 80; PULSE 97; PULSE 99; RESP 18; O2SAT 100
[2021-01-18] MEDS: Ondansetron ODT 4 MG Tablet PO (19:37)
== END 2021-01-18 20:16 | disposition home or self-care (01) ==
PROVIDERS: Emergency Provider Emergency Medicine
DX: U07.1 COVID-19 (principal); F17.200 Nicotine dependence, unspecified, uncomplicated; E66.9 Obesity, unspecified
CPT/HCPCS: 71045; 85025; 87426; 96360; 96361; 99285; J7030

== ENCOUNTER → 2021-08-16 | Outpatient (CLI) | payer MEDICAID, SELFPAY | END | disposition home or self-care (01) | LOC: LABSPEC 16:33 | PROVIDERS: Visit Provider Physician Assistant | DX: U07.1 COVID-19 (principal) | CPT/HCPCS: 87635; U0005; U0003 ==

== ENCOUNTER 2022-09-16 21:13 | Emergency (ER) | payer MEDICAID, SELFPAY ==
[2022-09-16 21:13] VITALS: BP 124/73; PULSE 119; RESP 16; TEMP 36.8; O2SAT 100; BMI 24.6
--- NOTE | 2022-09-16 21:24 | EX.ED.DYSGE1 ---
HPI History of Present Illness Chief Complaint: General Illness Informant: patient Onset/Context/Timing Onset: Today and Hours Context: Gradual Onset Timing: Continuous Current Severity: Mild Maximum Severity: Mild Narrative Narrative: 22-year-old female no seen past medical history. Prior tonsillectomy and adenoidectomy. Says she was feeling fine after Ramya dinner and a mild headache now has subjective fever and chills and sore throat. Body aches. She had 1 episode of nausea and vomiting prior to arrival. States whenever she gets a respiratory infection she has swelling on the right side of her posterior pharynx. She states that they worked this up at [facility]. She saw ear nose and throat doctors down there. She is never never had a peritonsillar abscess. She is able to swallow. Prior similar symptoms: Yes Recent Illness/Hospitalization: No PFSH PFSH Medical History no medical history no medical history Home Medications amoxicillin 875 mg-potassium clavulanate 125 mg tablet 1 tab PO Q12H #14 tabs 05/07/22 [Rx Last Taken Unknown] prednisone 20 mg tablet 40 mg PO DAILY 5 days #10 tabs 09/16/22 [Rx Last Taken Unknown] Allergy/AdvReac Type Severity Reaction Status Date / Time No Known Allergies Allergy Verified 09/16/22 21:17 Surgical History History of tonsillectomy and adenoidectomy Social History Smoking Status: Current every day smoker tobacco type: cigarettes ROS ROS ED ROS Narrative Subjective fever and chills. Sore throat. Headache. Review of Systems ROS Unobtainable: Denies due to encephalopathy Constitutional Constitutional ED: Reports chills, fever(s) and subjective Eyes Eyes: Denies blurry vision ENT ENT ED: Reports sore throat; Denies ear pain or rhinorrhea Cardiovascular Cardiovascular: Denies chest pain Respiratory/Chest Respiratory/Chest: Denies cough or dyspnea Gastrointestinal Gastrointestinal: Reports nausea and vomiting; Denies abdominal pain, constipation, diarrhea or melena Genitourinary Genitourinary ED: Denies dysuria or hematuria Musculoskeletal Musculoskeletal: Denies arthralgias or back pain Integumentary Denies abscess Neurologic Neurologic: Reports headache(s) Psychiatric Psychiatric: Denies anxiety Endocrine Endocrinology: Denies cold intolerance Hematologic/Lymphatic Hematologic/Lymphatic: Reports none Allergic/Immunologic Allergic/Immunologic ED: Denies mouth swelling or tongue swelling EXAM Physical Exam Narrative Exam Narrative: 22-year-old female no acute distress. Vital signs are stable afebrile. H EENT exam TMs normal. Posterior pharynx erythematous mild swelling on the right. No drooling. No stridor. Able to swallow. Neck nontender no lymphadenopathy. Trachea midline. Lungs clear to auscultation bilaterally. Heart tachycardic rate about 115 no murmur. Abdomen soft nontender normal bowel sounds no peritoneal signs. Moving all 4 extremities. Nontender no edema. No rash. Back nontender. Neurologically she is awake and alert. Clinically appears to have a viral syndrome. Const Vital Signs: 09/16/22 21:13 09/16/22 21:55 Temperature 98.2 F Temperature Source Temporal Pulse Rate 119 H Respiratory Rate 16 Respiratory Pattern Normal Blood Pressure 124/73 H Blood Pressure Mean 90 Pulse Ox 100 Oxygen Delivery Method Room Air Positive well nourished and well developed; Negative for obese, cachectic, contractures or unkempt General Appearance ED: well developed and NAD; Negative for unkempt, cachectic, contractures, cyanotic or diaphoretic Nutritional Appearance: Negative for cachectic or obese HEENT Reports moist mucous membranes; Denies dry mucous membranes HEENT Narrative: Posterior oropharynx red mildly enlarged on the right. No stridor or drooling. No trouble swallowing or breathing. Status post tonsillectomy. Negative for trauma or tenderness Mouth ED: No dry mucous membranes Mouth: No dry mucous membranes Eyes PERRL and EOMs intact bilaterally General Eye ED: Negative for pale conjunctiva or scleral icterus Neck no lymphadenopathy, supple and no JVD General: Negative for tenderness Lymph Lymphatic: Negative for other Chest Wall inspection of chest normal and palpation of chest normal Resp normal respiratory effort and clear to auscultation bilaterally Effort and Inspection: Negative for retractions Auscultation: Negative for rales, rhonchi or wheezes Cardio regular rhythm, S1 normal heart sound, S2 normal heart sound and no murmurs; Negative for regular rate Rate: tachycardic GI normal to inspection, nondistended, normoactive bowel sounds, non-tender, non-distended and no masses Inspection: Negative for abdominal distention Auscultation: normoactive bowel sounds Palpation: soft; Negative for tender or guarding Back/Spine no CVA tenderness General Back: Negative for CVA tenderness Cervical Spine: Negative for cervical spine tenderness Thoracic Spine / Upper Back: Negative for thoracic spinal tenderness Extremity normal to inspection General Extremety ED: Negative for edema or tenderness General Extremity: Negative for edema Neuro oriented x3 and CN's II-XII intact bilaterally Sensorium / Orientation: alert; Negative for orientation impaired, lethargic or stuporous Motor Exam: strength 5/5 throughout Psych mental status grossly normal Appearance: Negative for unkempt Attitude: No agitated Mood & Affect: Negative for depressed, anxious or tearful Skin no rashes or lesions noted and no wounds General Skin Exam: elasticity normal Lesions: No lesion noted Rashes: No rashes noted Trauma: Negative for abrasion Wounds: Negative for wounds noted MDM MDM MDM Narrative Medical decision making narrative: 22-year-old suspect viral syndrome. Due to her symptoms I did get a rapid strep, COVID and influenza. Exam is benign other than posterior pharyngeal swelling and redness. She has had this worked up in the past I do not think she needs a CT soft tissue neck. Repeat exam patient doing well at 10:33 PM. Discharged home. Fluids and rest. Warm salt water gargling. Tylenol Motrin. Treated as a viral syndrome. Patient be discharged home. Given a dose of prednisone here for the inflammation. Prescription for 40 mg a day for the next 5 days. Return if worse. Follow-up with ENT if not improving. Lab Data Attestation: I reviewed the patient's lab results. Lab results narrative: Rapid strep negative. Rapid COVID and influenza are both negative also. Discharge Plan Triage Chief Complaint: General Illness ED Provider: Rodo Lund Dx/Rx/DC Orders Clinical Impression: Viral syndrome, Pharyngitis Instructions: ED Viral Syndrome (Adult) Prescriptions: New prednisone 20 mg tablet 40 mg PO DAILY 5 Days Qty: 10 0RF No Action amoxicillin-pot clavulanate 875-125 mg tablet 1 tab PO Q12H Qty: 14 0RF Primary Care Provider: Care Physician,No Primary Referrals: Arnaldo Vasquez MD [Med Staff - Active Staff] - 1 Week if not improving Care Physician,No Primary [Primary Care Provider] - Activity Restrictions/Additional Instructions: Plenty of fluids and rest. Warm salt water gargling. Chloraseptic spray to help with the sore throat. Prednisone daily for the inflammation. Return if worse. Follow-up with ear nose and throat Dr. Arnaldo Vasquez if the inflammation in posterior pharynx does not improve. Disposition Disposition: Home, Self Care
[2022-09-16] MEDS: predniSONE 20 MG Tablet 40 MG PO (22:46)
== END 2022-09-16 22:49 | disposition home or self-care (01) ==
PROVIDERS: Emergency Provider Emergency Medicine; Visit Provider Emergency Medicine
DX: B34.9 Viral infection, unspecified (principal); J02.9 Acute pharyngitis, unspecified; F17.210 Nicotine dependence, cigarettes, uncomplicated; Z98.890 Other specified postprocedural states; Z20.822 Contact with and (suspected) exposure to COVID-19
CPT/HCPCS: 87428; 87880; 99283

== ENCOUNTER 2023-03-03 08:38 | Emergency (ER) | payer MEDICAID, SELFPAY ==
[2023-03-03 08:40] VITALS: BP 123/103; PULSE 100; RESP 18; TEMP 36.7; O2SAT 100; BMI 25.8
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
[2023-03-03 10:06] VITALS: O2SAT 98
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
[2023-03-03] MEDS: Acetaminophen 500 MG Tablet 1000 MG PO (10:37)
[2023-03-03 11:00] VITALS: BP 128/78; PULSE 78; RESP 16; O2SAT 97
[2023-03-03 11:56] VITALS: BP 118/78; PULSE 78; RESP 14; TEMP 36.6; O2SAT 100
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
== END 2023-03-03 23:59 | disposition home or self-care (01) ==
PROVIDERS: Emergency Provider Emergency Medicine; Visit Provider Emergency Medicine
DX: S09.90XA Unspecified injury of head, initial encounter (principal); S00.11XA Contusion of right eyelid and periocular area, initial encounter; S20.219A Contusion of unspecified front wall of thorax, initial encounter; S10.91XA Abrasion of unspecified part of neck, initial encounter; F17.210 Nicotine dependence, cigarettes, uncomplicated; S40.021A Contusion of right upper arm, initial encounter; S00.83XA Contusion of other part of head, initial encounter; Y04.8XXA Assault by other bodily force, initial encounter
CPT/HCPCS: 70450; 70491; 71046; 72125; 73060; 99285; Q9967; A4216

== ENCOUNTER 2023-06-12 06:44 | Emergency (ER) | payer MEDICAID, SELFPAY ==
[2023-06-12 06:46] VITALS: BP 155/101; PULSE 93; RESP 19; TEMP 35.9; O2SAT 100; BMI 26.4
--- NOTE | 2023-06-12 07:08 | EKG12_ITS ---
Test Reason : CP Blood Pressure : / mmHG Vent. Rate : 085 BPM Atrial Rate : 085 BPM P-R Int : 124 ms QRS Dur : 076 ms QT Int : 346 ms P-R-T Axes : -11 -09 041 degrees QTc Int : 411 ms Normal sinus rhythm Normal ECG Confirmed by HARJIT NEAL, CALDERON ([id number]), film and video editor AYLEEN VALADEZ ([id number]) on 06/18/2023 10:39:58 AM Referred By: PL Confirmed By:LAYLA LOMBARDI MD
--- NOTE | 2023-06-12 07:09 | ED.VIS.CHEST ---
HPI History of Present Illness Chief Complaint: Chest Pain Detail of Chief Complaint: Chest pain Informant: patient Narrative Narrative: Patient presents to the emergency department complaint chest discomfort that initially started yesterday evening. Patient states that she had a stressful day at work yesterday. When at home she just kind of felt heavy in her chest. Patient thought maybe it was just her anxiety. She was able to sleep all night without difficulty. She woke up this morning and on her way to work started experiencing some tightness in her chest and some numbness and tingling in her left arm and her palms became sweaty. Patient states that she felt like she had occasionally take a deep breath. She discussed this with her mother who advised her to come to the ER to get evaluated. Patient states that her mother had a heart stent at age 48. Patient denies recent illness. Denies recent travel or surgery. No history of PE or DVT. She is not on oral contraceptive. PFSH PFSH Home Medications alprazolam 0.5 mg tablet 0.5 mg PO PRN anxiety 06/12/23 [History Last Taken Unknown] Allergy/AdvReac Type Severity Reaction Status Date / Time No Known Allergies Allergy Verified 03/03/23 08:39 Surgical History History of tonsillectomy and adenoidectomy Social History Smoking Status: Current every day smoker tobacco type: cigarettes ROS ROS ED Review of Systems ROS Unobtainable: other Constitutional Constitutional ED: Reports lethargy; Denies chills, fever(s), sweats or weight loss Eyes Eyes: Denies blurry vision, change in vision or diplopia ENT ENT ED: Denies rhinorrhea or sore throat Cardiovascular Cardiovascular: Reports chest pain; Denies orthopnea or racing heartbeat Respiratory/Chest Respiratory/Chest: Reports dyspnea; Denies cough, dyspnea on exertion, orthopnea or sputum Gastrointestinal Gastrointestinal: Denies abdominal pain, diarrhea, nausea or vomiting Genitourinary Genitourinary ED: Denies dysuria, hematuria or urinary frequency Musculoskeletal Musculoskeletal: Denies arthralgias, back pain, myalgias or neck pain Integumentary Denies abscess, Abrasions or rash Neurologic Neurologic: Denies headache(s) or weakness Psychiatric Psychiatric: Denies anxiety, depression or suicidal thoughts Endocrine Endocrinology: Denies polydipsia, polyphagia or polyuria Hematologic/Lymphatic Hematologic/Lymphatic: Denies easy bleeding, easy bruising or lymphadenopathy Allergic/Immunologic Allergic/Immunologic ED: Denies mouth swelling, tongue swelling or urticaria EXAM Physical Exam Const Vital Signs: 06/12/23 06:46 06/12/23 07:31 06/12/23 09:10 Temperature 96.6 F L Temperature Source Temporal Pulse Rate 93 74 Respiratory Rate 19 H 16 Blood Pressure 155/101 H 132/88 H Blood Pressure Mean 119 Pulse Ox 100 99 Oxygen Delivery Method Room Air Room Air 06/12/23 09:10 Temperature Temperature Source Pulse Rate 74 Respiratory Rate 16 Blood Pressure 132/88 H Blood Pressure Mean 102 Pulse Ox 99 Oxygen Delivery Method Room Air Positive well nourished and well developed General Appearance ED: well developed and NAD HEENT Reports TM's clear and moist mucous membranes normocephalic and atraumatic; Negative for trauma or tenderness Tympanic Membrane ED: Yes TM's clear Eyes PERRL and EOMs intact bilaterally General Eye ED: Negative for pale conjunctiva or scleral icterus Neck no lymphadenopathy, supple and no JVD General: Negative for tenderness Chest Wall inspection of chest normal and palpation of chest normal Chest: Negative for tenderness Resp normal respiratory effort and clear to auscultation bilaterally Effort and Inspection: Negative for respiratory distress or pain with movement Auscultation: Negative for rhonchi, wheezes or diminished lung sounds Cardio regular rate, regular rhythm, S1 normal heart sound, S2 normal heart sound and no murmurs Peripheral Pulses: pulses 2+ throughout GI normal to inspection, nondistended, normoactive bowel sounds, soft to palpation, non-tender, non-distended and no masses Back/Spine no CVA tenderness and no thoracic nor lumbar tenderness Extremity normal to inspection General Extremety ED: Negative for edema General Extremity: Negative for edema Neuro oriented x3, CN's II-XII intact bilaterally, no sensory deficits noted and gait normal Sensorium / Orientation: awake, alert, oriented to person, oriented to place and oriented to time Motor Exam: strength 5/5 throughout and strength abnormal Psych mental status grossly normal Skin no rashes or lesions noted and no wounds MDM MDM MDM Narrative Medical decision making narrative: Patient presents with chest pain and mild tachypnea. In the differential would be anxiety versus pneumothorax or infectious etiology. I feel acute coronary syndrome not likely. Differential also includes pericarditis or pneumothorax. IV line established on arrival. EKG obtained showed a sinus rhythm with no acute ST elevations or evidence for pericarditis. CBC with differential showing of 8.7 with hemoglobin of 14.7 and platelet count of 286. Chemistries were unremarkable. Troponin was normal less than 3. D-dimer was elevated at 0.59 therefore CTA of the chest was obtained which was normal. At this point patient will be discharged to home. Etiology of her chest discomfort unclear although suspect may be related to anxiety. Patient advised to follow-up with her primary care physician within next 3 to 5 days. Lab Data Attestation: I reviewed the patient's lab results. Labs: Laboratory Results - last 24 hr 06/12/23 06:50 WBC 8.7 RBC 4.87 Hgb 14.7 Hct 44.8 MCV 92.0 MCH 30.2 MCHC 32.8 RDW Std Deviation 43.3 RDW Coeff of Koby 12.8 Plt Count 286 MPV 9.6 Immature Gran % (Auto) 0.200 Neut % (Auto) 53.4 Lymph % (Auto) 36.3 [place] % (Auto) 9.7 Eos % (Auto) 0.2 Baso % (Auto) 0.2 Absolute Neuts (auto) 4.6 Absolute Lymphs (auto) 3.16 Nucleated RBC % 0 D-Dimer Quant (PE/DVT) 0.59 H* Sodium 138 Potassium 3.6 Chloride 107 Carbon Dioxide 26.0 Anion Gap 5 BUN 10 Creatinine 0.98 Estim Creat Clear Calc 83.58 Est GFR (MDRD) Af Amer 91 Est GFR (MDRD) Non-Af 75 BUN/Creatinine Ratio 10.3 Glucose 93 Calcium 8.5 Troponin I High Sens < 3 L Radiography Diagnostic Testing: Clinical Impression(s) from Imaging Studies Chest X-Ray 06/12/23 07:25 IMPRESSION: No evidence of cardiopulmonary disease. Electronically Signed: Leif Hightower DO at 7:41 EDT , Chest CTA 06/12/23 07:58 IMPRESSION: Normal CTA chest examination, without a demonstrated pulmonary embolism or arterial dissection. Electronically Signed: Wellington Arce MD at 8:55 EDT , 1 view chest x-ray obtained interpreted by myself as no evidence of infiltrate or pneumothorax or acute disease process. EKG Initial EKG: Attestation: I personally reviewed and interpreted this EKG as follows: Comments: Sinus rhythm with a rate of 95 bpm with no acute ST segment changes. No evidence for pericarditis. Discharge Plan Triage Chief Complaint: Chest Pain ED Provider: Christian Callahan Dx/Rx/DC Orders Clinical Impression: Anxiety, Chest pain Instructions: ED Anxiety Reaction, ED Chest Pain, Uncertain Cause Prescriptions: No Action alprazolam 0.5 mg tablet 0.5 mg PO PRN Primary Care Provider: Petty Vasquez Referrals: Petty Vasquez, [employer] [employer]IST-[employer] [Primary Care Provider] - 3-5 Days Disposition Disposition: Home, Self Care Discharge Date/Time: 06/12/23 09:13
--- NOTE | 2023-06-12 07:11 | NURSING ---
NO OLD EKG
--- NOTE | 2023-06-12 07:25 | RAD_ITS ---
INDICATION: chest pain EXAMINATION/TECHNIQUE: X-RAY - XR Chest 1 View COMPARISON: None. FINDINGS: LINES/DEVICES: None. LUNGS: No consolidation or evidence of an effusion. No evidence of edema or a pneumothorax. MEDIASTINUM AND CARDIOVASCULAR STRUCTURES: Cardiac silhouette is normal in size and contour. Mediastinum is unremarkable. BONES AND SOFT TISSUES: No acute abnormality. RAD/Chest 1 View (Portable) IMPRESSION: No evidence of cardiopulmonary disease. Electronically Signed: Leif Hightower DO at 7:41 EDT ,
[2023-06-12 07:30] LABS: Absolute Lymphocyte Count 3.16 X10^3/uL (0.83-4.51); Absolute Neutrophil Count 4.6 X10^3/uL (2.0-7.7); Basophil# 0.02 X10^3/uL; Basophil% 0.2 % (0-1); Eosinophil# 0.02 X10^3/uL; Eosinophils% 0.2 % (0-5); Hematocrit 44.8 % (37-47); Hemoglobin 14.7 g/dL (12.0-15.0); Lymphocyte # 3.16 X10^3/ul (0.83-4.51); Lymphocyte % 36.3 % (19-41); Mean Corp Hgb Conc 32.8 g/dL (32-36); Mean Corpuscular Hgb 30.2 pg (27.0-32.0); Mean Platelet Vol. 9.6 fl (6.2-12.0); Monocyte# 0.84 X10^3/uL; Monocyte% 9.7 % (0-10); NRBC Flagged by Analyzer 0 % (0-5); Neutrophil # 4.64 X10^3/uL (2.7-7.7); Neutrophil % 53.4 % (47-70); Platelet Count 286 K/mm3 (150-450); RBC Distribution Width CV 12.8 % (11.6-14.6); RBC Distribution Width SD 43.3 fl (35.1-43.9); Red Blood Count 4.87 M/mm3 (4.2-5.4); White Blood Count 8.7 K/mm3 (4.4-11.0)
[2023-06-12] MEDS: Aspirin 81 MG TAB.CHEW 324 MG PO (07:30)
[2023-06-12 07:46] LABS: Anion Gap 5 (5-15); BUN 10 mg/dL (7-18); BUN/Creat Ratio 10.3 RATIO (10-20); Calcium,Total 8.5 mg/dL (8.5-10.1); Chloride 107 mmol/L (98-107); Creatinine, Serum 0.98 mg/dL (0.55-1.02); EST Glomerular Filtration Rate 75 mL/min (>60); Est Glom Filt Rate - Afr Amer 91 mL/min (>60); Estimated Creatinine Clearance 83.58 ml/min; Glucose 93 mg/dL (74-106); Potassium 3.6 mmol/L (3.5-5.1); Sodium Level 138 mmol/L (136-145); Troponin-I HS (w/2H Reflex) < 3 pg/mL (3.0-54.0)
[2023-06-12 07:56] LABS: D-Dimer Quantitative (DVT/PE) 0.59 FEU/ug/m (0.27-0.49)
--- NOTE | 2023-06-12 07:58 | CT_ITS ---
STUDY: CTA CHEST REASON FOR EXAM: Female, 23 years old. Chest pain, elevated d-dimer RADIATION DOSAGE (If Supplied By Facility): CTDIvol = ( 7.03 ) mGy, DLP = ( 262.52 ) mGycm TECHNIQUE: The examination was performed with the intravenous administration of IV 100mL Isovue-370. Post-processing of the angiographic images was performed, with multiplanar reformation and 3D reconstruction. Individualized dose optimization techniques were used for this CT. COMPARISON: None. FINDINGS: Normal enhancement of the main pulmonary artery and right and left pulmonary arteries. Normal enhancement of the bilateral peripheral pulmonary arteries. There is no demonstrated pulmonary embolism. Normal thoracic aorta and visualized great vessels. There is no demonstrated aortic dissection. Normal heart and pericardium. Normal mediastinum. Normal hilar regions. Normal visualized trachea and bronchi. The lungs are well expanded. Minimal linear atelectasis at the lung bases. Normal pleura. Normal chest wall structures. Normal osseous structures. Normal visualized upper abdomen. CT/CTA Chest W/WO Contrast IMPRESSION: Normal CTA chest examination, without a demonstrated pulmonary embolism or arterial dissection. Electronically Signed: Wellington Arce MD at 8:55 EDT ,
[2023-06-12 09:10] VITALS: BP 132/88; PULSE 74; RESP 16; O2SAT 99
[2023-06-12 09:15] LABS: Reflex Troponin-HS? (from REC) Y
== END 2023-06-12 09:13 | disposition home or self-care (01) ==
PROVIDERS: Emergency Provider Emergency Medicine; PCP Nurse Practitioner Family; Visit Provider Emergency Medicine
DX: R07.9 Chest pain, unspecified (principal); F17.210 Nicotine dependence, cigarettes, uncomplicated; F41.9 Anxiety disorder, unspecified
CPT/HCPCS: 71045; 71275; 80048; 84484; 85025; 85379; 93005; 99285; Q9967; A4216

== ENCOUNTER 2023-07-28 21:51 | Emergency (ER) | payer MEDICAID, SELFPAY ==
[2023-07-28 21:52] VITALS: BP 138/95; PULSE 71; RESP 16; TEMP 36.6; O2SAT 99; BMI 25.8
--- NOTE | 2023-07-28 22:02 | ED.VIS.DENTA ---
HPI History of Present Illness Chief Complaint: Dental PFSH PFSH Home Medications alprazolam 0.5 mg tablet 0.5 mg PO PRN anxiety 06/12/23 [History Last Taken Unknown] Allergy/AdvReac Type Severity Reaction Status Date / Time No Known Allergies Allergy Verified 07/28/23 21:52 Surgical History History of tonsillectomy and adenoidectomy Social History Smoking Status: Current every day smoker tobacco type: cigarettes EXAM Physical Exam Const Vital Signs: 07/28/23 21:52 Temperature 97.8 F Temperature Source Temporal Pulse Rate 71 Respiratory Rate 16 Blood Pressure 138/95 H Blood Pressure Mean 109 Pulse Ox 99 MDM MDM MDM Narrative Medical decision making narrative: HISTORY OF PRESENT ILLNESS: 23-year-old female here with concern for dental pain. Notes pain with some tooth out on Saturday complains of ongoing pain. States oral narcotics are ineffective. REVIEW OF SYSTEMS: Pertinent positives: Dental pain Pertinent negatives: Difficulty swallowing, stridor, neck stiffness PHYSICAL EXAM: Nursing triage notes reviewed, Vital signs reviewed Constitutional: please see mdm HENT: MMM, no evidence of dental abscess, no submandibular edema or induration, no tonsillar exudates or erythema, uvula midline, patient was controlling secretions, no drooling, no trimus, no dysphonia, there is some mild swelling in the posterior oropharynx and upper and lower molar region. There is no obvious fluctuant abscess purulence or discharge. Eyes: Pupils equal round and reactive to light, Extraocular muscles intact Neck: No stridor, no JVD, full neck ROM Lungs: Clear to auscultation, No wheezing or rales. No increased work of breathing, no conversational dyspnea, no accessory muscle use, no nasal flaring. No respiratory distress noted Heart: Regular rate and rhythm, No murmurs, No rubs and No gallops, 2+ distal pulses (radial, femoral, posterior tibial) in all extremities MEDICAL DECISION MAKING: Chief Complaint: Dental pain External records reviewed: ED utilizer, last ED visit in May for anxiety. PDMP reviewed prescribed 3 days of vicodin MDM Narrative: The patient was hemodynamically stable, afebrile, nontoxic-appearing. The patient appeared comfortable, nontoxic. She is controlling her secretions. There is no stridor. There is no submandibular edema. There is no signs of erythema or dental abscess on oral exam. Patient had good dentition. Patient noted she is only taking Vicodin for pain control I recommended she add an anti-inflammatory follow-up with her dentist for outpatient evaluation further pain control. I considered the following differential diagnosis: Dental abscess, ANUG, Ludewig's angina, RPA, PHYS ASST, dental caries, gingivitis Factors affecting care: None Social determinants of health: N/A History obtained from others: The patient's family Shared decision making: I will have a discussion with the patient and or visitors regarding risk/benefits of further testing or admission. They will be made aware of of the risk/benefits inherent in this decision they will be given the opportunity to voice understanding. Consults: None Impression: 1. Postop pain 2. Dental pain Disposition: Discharge home Discharge Plan Triage Chief Complaint: Dental ED Provider: Alden Miner Dx/Rx/DC Orders Instructions: ED Dental Pain Prescriptions: No Action alprazolam 0.5 mg tablet 0.5 mg PO PRN Stand Alone Forms: ED Work / School Excuse Primary Care Provider: Petty Vasquez Referrals: Petty Vasquez, FOREST LAW AND POLICY PROFESSOR-C [Primary Care Provider] - Activity Restrictions/Additional Instructions: Thank you for trusting us with your care today! Please take naproxen or Aleve 500 mg every 12 hours in addition to already prescribed Vicodin for pain control. Given contains Tylenol. Please do not take Tylenol and Vicodin at the same time. Please return to the emergency department if your symptoms change or worsen. Please follow with your primary care physician for further outpatient evaluation and management. Disposition Disposition: Home, Self Care
== END 2023-07-28 22:27 | disposition home or self-care (01) ==
PROVIDERS: Emergency Provider Emergency Medicine; PCP Nurse Practitioner Family; Visit Provider Emergency Medicine
DX: G89.18 Other acute postprocedural pain (principal); K08.89 Other specified disorders of teeth and supporting structures; F41.9 Anxiety disorder, unspecified; F17.210 Nicotine dependence, cigarettes, uncomplicated
CPT/HCPCS: 99282

== ENCOUNTER 2024-04-06 17:06 | Emergency (ER) | payer MEDICAID, SELFPAY ==
[2024-04-06 17:07] VITALS: BP 115/95; PULSE 60; RESP 16; TEMP 35.7; O2SAT 99
[2024-04-06 18:16] LABS: Absolute Lymphocyte Count 2.45 X10^3/uL (0.83-4.51); Absolute Neutrophil Count 4.4 X10^3/uL (2.0-7.7); Basophil# 0.02 X10^3/uL; Basophil% 0.3 % (0-1); Eosinophil# 0.06 X10^3/uL; Eosinophils% 0.8 % (0-5); Hematocrit 39.1 % (37-47); Hemoglobin 13.3 g/dL (12.0-15.0); Lymphocyte # 2.45 X10^3/ul (0.83-4.51); Lymphocyte % 32.9 % (19-41); Mean Corpuscular Hgb 31.1 pg (27.0-32.0); Mean Corpuscular Volume 91.4 fL (81-99); Mean Platelet Vol. 9.4 fl (6.2-12.0); Monocyte# 0.54 X10^3/uL; Monocyte% 7.3 % (0-10); NRBC Flagged by Analyzer 0 % (0-5); Neutrophil # 4.36 X10^3/uL (2.7-7.7); Neutrophil % 58.6 % (47-70); Platelet Count 246 K/mm3 (150-450); RBC Distribution Width CV 12.7 % (11.6-14.6); RBC Distribution Width SD 42.1 fl (35.1-43.9); Red Blood Count 4.28 M/mm3 (4.2-5.4); White Blood Count 7.4 K/mm3 (4.4-11.0)
[2024-04-06 18:30] LABS: Internal QC Validated? YES +Cl - CLEAR BKGD; Pregnancy, Serum, hCG Quali. NEGATIVE Negative
[2024-04-06 18:34] LABS: Mucous, Urine 0 SEEN /hpf (<or=2+); Red Blood Cells-Urine 0 SEEN /hpf (0-5); White Blood Cells 0 SEEN /hpf (0-5)
[2024-04-06 18:41] LABS: Color, Urine Yellow (Yellow); Glucose, Dipstick Normal (Normal); Ketone-Dipstick 5 mg/dl (Negative); Leukocyte Esterase-Dipstick Negative /ul (Negative); Nitrite-Dipstick Negative (Negative); Occult Blood-Urine Negative /ul (Negative); Protein-Dipstick Negative (Negative); Specific Gravity, Urine 1.015 (1.002-1.030); Urine Bilirubin Dipstick Negative (Negative); Urine Clarity Clear (Clear); Urine Urobilinogen Normal (Normal)
[2024-04-06 18:46] LABS: ALB/GLOB Ratio 1.1 RATIO (0.9-2.4); AST(SGOT) 11 U/L (15-37); Alanine Aminotransfer ALT/SGPT 18 U/L (13-56); Albumin, Serum 2.7 g/dL (3.2-5.0); Alkaline Phosphatase 38 U/L (45-117); Anion Gap 8 (5-15); BUN 11 mg/dL (7-18); BUN/Creat Ratio 21.1 RATIO (10-20); Calcium,Total 6.6 mg/dL (8.5-10.1); Chloride 117 mmol/L (98-107); Creatinine, Serum 0.52 mg/dL (0.55-1.02); EST Glomerular Filtration Rate 153 mL/min (>60); Est Glom Filt Rate - Afr Amer 185 mL/min (>60); Globulin 2.5 g/dL (2.2-4.2); Glucose 76 mg/dL (74-106); Potassium 2.8 mmol/L (3.5-5.1); Protein, Total 5.2 g/dL (6.4-8.2); Sodium Level 144 mmol/L (136-145)
--- NOTE | 2024-04-06 18:58 | EDS_ITS ---
HPI HPI - GI History of Present Illness Chief Complaint: GI Bleed Narrative Narrative: 24-year-old female presenting with abdominal pain, nausea. Patient states she noted that nausea started yesterday. She has been having a low constant amount of pain with intermittent aching. She states initially it was around her umbilicus but now it is localized to the right lower quadrant. She feels ill. Today she has had fevers of 102 ?F all day. She thought she might of been constipated so she took stool softener Gummies and had a bowel movement. She does note that Saturday she had a little bit of blood in her stool but she did not have any other symptoms then. PFSH PFSH Home Medications ?Medication ?Instructions ?Recorded ?Last Taken ?Type alprazolam 0.5 mg tablet 0.5 mg PO PRN anxiety 06/12/23 Unknown History ondansetron 4 mg disintegrating 4 mg PO Q8H PRN PRN Nausea #14 tabs 04/06/24 Unknown Rx tablet Allergy/AdvReac Type Severity Reaction Status Date / Time No Known Allergies Allergy Verified 04/06/24 17:11 Surgical History History of tonsillectomy and adenoidectomy Social History Smoking Status: Current every day smoker tobacco type: e-cigarettes ROS ROS ED Constitutional Constitutional ED: Denies chills, fever(s) or sweats Eyes Eyes: Denies blurry vision or change in vision ENT ENT ED: Denies ear pain or sore throat Cardiovascular Cardiovascular: Denies chest pain, palpitations or racing heartbeat Respiratory/Chest Respiratory/Chest: Denies cough, dyspnea or sputum Gastrointestinal Gastrointestinal: Reports abdominal pain, nausea and other Details: Blood in stool ; Denies constipation, diarrhea or vomiting Genitourinary Genitourinary ED: Denies dysuria, hematuria or urinary frequency Musculoskeletal Musculoskeletal: Denies arthralgias, myalgias or neck pain Integumentary Denies abscess, Abrasions or rash Neurologic Neurologic: Denies headache(s), paresthesias or weakness Psychiatric Psychiatric: Denies anxiety, depression, suicidal ideation or suicidal thoughts Endocrine Endocrinology: Denies polydipsia or polyuria EXAM Physical Exam Const Vital Signs: 04/06/24 17:07 04/06/24 17:07 04/06/24 19:10 Temperature 96.3 F L 96.3 F L 99.1 F Temperature Source Temporal Temporal Oral Pulse Rate 60 60 89 Respiratory Rate 16 16 16 Blood Pressure 115/95 H 115/95 H 129/93 H Blood Pressure Mean 101 101 105 Pulse Ox 99 99 98 Oxygen Delivery Method Room Air Room Air Room Air 04/06/24 20:42 Temperature 99.1 F Temperature Source Pulse Rate 64 Respiratory Rate 18 Blood Pressure 121/76 H Blood Pressure Mean 91 Pulse Ox 98 Oxygen Delivery Method Positive well nourished General Appearance ED: NAD; Negative for pallor HEENT Reports moist mucous membranes Eyes PERRL Resp normal respiratory effort Cardio regular rate and regular rhythm GI Palpation: tender McBurney's point and periumbilical Neuro CN's II-XII intact bilaterally Sensorium / Orientation: alert Psych mental status grossly normal and thought process normal Skin no wounds General Skin Exam: Negative for jaundice or pallor MDM MDM MDM Narrative Medical decision making narrative: Patient presenting with right-sided abdominal pain. Patient presenting with right flank pain. Differential includes colitis, diverticulitis, gastritis, pancreatitis, acute cholecystitis, constipation, appendicitis, UTI, pyelonephritis, calculi, ureteral calculi, obstruction, malignancy, dehydration, electrolyte abnormalities, ovarian torsion, ovarian cyst, ectopic . CBC will be obtained to assess white blood cell count, hemoglobin, platelets. CMP to assess renal function, electrolytes, liver function, glucose. Lipase to assess for pancreatitis. Urinalysis to assess for UTI. CBC shows normal white blood cell count 7.4. Hemoglobin 13.3. Platelets are normal at 246. Calcium 2.8. Renal function and electrolytes otherwise unremarkable. LFTs are normal. hCG negative. Patient declines analgesia want something for nausea. CBC shows normal white blood cell count of 7.4. Hemoglobin 13.3. Platelets 246. CT of the abdomen pelvis negative for acute findings. Renal function and electrolytes within normal limits with exception of a potassium of 2.8. This will be repleted orally. Patient counseled that her hemoglobin is normal and she likely has a viral syndrome. She does not want any further testing. I did write her prescription for Zofran for home. Return precautions discussed. Impression: 1. Abdominal pain 2. Nausea 3. Hypokalemia 4. Viral syndrome Lab Data Attestation: I reviewed the patient's lab results. Labs: Laboratory Results - last 24 hr 04/06/24 04/06/24 18:07 18:27 WBC 7.4 RBC 4.28 Hgb 13.3 Hct 39.1 MCV 91.4 MCH 31.1 MCHC 34.0 RDW Std Deviation 42.1 RDW Coeff of Koby 12.7 Plt Count 246 MPV 9.4 Immature Gran % (Auto) 0.100 Neut % (Auto) 58.6 Lymph % (Auto) 32.9 [place] % (Auto) 7.3 Eos % (Auto) 0.8 Baso % (Auto) 0.3 Absolute Neuts (auto) 4.4 Absolute Lymphs (auto) 2.45 Nucleated RBC % 0 Sodium 144 Potassium 2.8 L Chloride 117 H Carbon Dioxide 19.0 L Anion Gap 8 BUN 11 Creatinine 0.52 L Est GFR (MDRD) Af Amer 185 Est GFR (MDRD) Non-Af 153 BUN/Creatinine Ratio 21.1 H Glucose 76 Calcium 6.6 L Total Bilirubin 0.20 AST 11 L ALT 18 Alkaline Phosphatase 38 L Total Protein 5.2 L Albumin 2.7 L Globulin 2.5 Albumin/Globulin Ratio 1.1 Serum , Qual NEGATIVE Urine Color Yellow Urine Clarity Clear Urine pH 8.0 Ur Specific [place] 1.015 Urine Protein Negative Urine Glucose (UA) Normal Urine Ketones 5 H Urine Occult Blood Negative Urine Nitrite Negative Urine Bilirubin Negative Urine Urobilinogen Normal Ur Leukocyte Esterase Negative Urine RBC 0 SEEN Urine WBC 0 SEEN Ur Squamous Epith Cells 0-5 SEEN Urine Bacteria 1+ Urine Mucus 0 SEEN Radiography Diagnostic Testing: Clinical Impression(s) from Imaging Studies Abdomen/Pelvis CT 04/06/24 19:04 IMPRESSION: 1. No masses or bowel obstruction. No evidence of diverticulitis. 2. No evidence of appendicitis. 3. No renal calcifications or obstructive uropathy. 4. No evidence cholelithiasis or ductal dilatation. 5. No free fluid. Electronically Signed: Richie Welch MD at 20:12 EDT , Discharge Plan Triage Chief Complaint: GI Bleed ED Provider: Harish Vela Dx/Rx/DC Orders Instructions: ED Abdominal Pain Unkn Cause Fem, ED Hypokalemia, ED Potassium- Rich Foods, ED Viral Syndrome (Adult) Prescriptions: New ondansetron 4 mg tablet,disintegrating 4 mg PO Q8H PRN PRN (Reason: Nausea) Qty: 14 0RF No Action alprazolam 0.5 mg tablet 0.5 mg PO PRN Primary Care Provider: Petty Vasquez Referrals: Petty Vasquez, BEVELING MACHINE OPERATOR-C [Primary Care Provider] - Print Language: Persian Disposition Disposition: Home, Self Care Discharge Date/Time: 04/06/24 20:48
--- NOTE | 2024-04-06 19:04 | CT_ITS ---
INDICATION: rlq pain EXAMINATION: CT ABDOMEN AND PELVIS with CONTRAST - CT Abdomen And Pelvis W/ Contrast Injection TECHNIQUE: Multiple axial images were obtained of the abdomen and pelvis following administration of IV contrast. Planar reconstructions obtained. A radiation dose optimization technique was used for this scan. RADIATION DOSAGE (If Supplied By Facility): CTDIvol = ( 8.08 ) mGy, DLP = ( 525.61 ) mGycm IV Contrast dosage and agent: 100 mL Isovue-300 Oral contrast: None. COMPARISON: No pertinent previous studies for comparison.. FINDINGS: LOWER THORAX: Lungs are clear. Cardiac contour is normal, no pericardial effusion. No coronary vascular calcifications noted. HEPATOBILIARY: Liver: The liver is homogeneous and shows no evidence of focal lesion. Gallbladder: The gallbladder is unremarkable. Pancreas: Pancreas is normal size configuration and density. No mass is noted. Spleen: The spleen is homogeneous and normal in size. . BOWEL: Stomach: The stomach is normal in size configuration, no evidence of focal masses, abnormal calcifications. No hiatal hernia noted. Bowel: Small and large have normal configuration, no masses or bowel obstruction noted. No evidence of diverticulitis. Appendix: The appendix is visualized, no evidence of appendicitis. No soft tissue inflammatory changes abscess or bowel obstruction.: GENITOURINARY: Adrenals: Both adrenal glands are normal in size. Kidneys: Kidneys appear symmetric in size. No calcifications are seen in the collecting system. There is no hydronephrosis or surrounding fluid. Bladder: Normal Pelvic organs: Uterus is retroverted. No pelvic masses or fluid collections. RETROPERITONEUM: There is normal appearance of the abdominal aorta and inferior vena cava. LYMPH NODES: No evidence of retroperitoneal or para-aortic masses fluid collections or adenopathy. PERITONEAL CAVITY: No ascites noted ANTERIOR ABDOMINAL WALL: Normal, no hernia identified. BONES AND SOFT TISSUES: No acute bony changes. Mild lumbar spondylosis with a mild contour deformity of multiple endplates particularly T12 and L1. No acute fractures or acute destructive bony process. OTHER: None CT/Abdomen/Pelvis W IV Cont ONLY IMPRESSION: 1. No masses or bowel obstruction. No evidence of diverticulitis. 2. No evidence of appendicitis. 3. No renal calcifications or obstructive uropathy. 4. No evidence cholelithiasis or ductal dilatation. 5. No free fluid. Electronically Signed: Richie Welch MD at 20:12 EDT ,
[2024-04-06 19:10] VITALS: BP 129/93; PULSE 89; RESP 16; TEMP 37.3; O2SAT 98
[2024-04-06 19:12] LABS: Bacteria 1+ /hpf (None Seen); Squamous Epithelial Cells - UA 0-5 SEEN /hpf (5-10)
[2024-04-06] MEDS: Ondansetron 4 MG/2 ML Vial IV (19:35)
[2024-04-06 20:42] VITALS: BP 121/76; PULSE 64; RESP 18; TEMP 37.3; O2SAT 98
[2024-04-06] MEDS: Potassium Chloride Oral Tablet 20 MEQ 40 MEQ PO (20:47)
== END 2024-04-06 20:48 | disposition home or self-care (01) ==
PROVIDERS: Emergency Provider Student in an Organized Health Care Education/Training Program; PCP Nurse Practitioner Family; Visit Provider Student in an Organized Health Care Education/Training Program
DX: R10.9 Unspecified abdominal pain (principal); R11.0 Nausea; B34.9 Viral infection, unspecified; E87.6 Hypokalemia; F17.290 Nicotine dependence, other tobacco product, uncomplicated
CPT/HCPCS: 74177; 80053; 81001; 84703; 85025; 96374; 99282; Q9967; A4216; J2405

== ENCOUNTER 2024-12-17 08:06 | Day surgery (SDC) | payer MEDICAID, SELFPAY ==
--- NOTE | 2024-12-16 17:16 | PCM.HP.BLA ---
History and Physical Date of Admission: 12/17/24 Pre-Op History and Physical HPI: The patient is a 24 year old female presenting for discussion regarding surgical intervention for AUB and Endometrial polyp found on ultrasound. pre-operative visit. She is scheduled for Hysteroscopy D&C and possible polypectomy, for AUB, endometrial polyp on 11/22/24. Procedure discussed along with risks, benefits and complications. Other alternatives discussed for management. Consent form signed? Yes. PAST MEDICAL HISTORY Diagnosis Date ? Anemia during in third trimester 06/19/2019 ? Endometriosis ? Herpes 09/22/2020 ? Mental disorder depression/anxiety ? Migraine without aura 02/11/2015 ? PONV (postoperative nausea and vomiting) ? Pre-eclampsia in third trimester 07/06/2019 ? Recurrent UTI was to be evaluated by urology ? Scoliosis ? Tension type headache 02/11/2015 ? Uterine polyp PAST SURGICAL HISTORY Procedure Laterality Date ? TONSILLECTOMY & ADENOIDECTOMY <AGE 12 No current outpatient medications on file. No current facility-administered medications for this visit. ALLERGIES: Patient has no known allergies. PERSONAL HISTORY: Social History Tobacco Use ? Smoking status: Every Day Current packs/day: 0.25 Average packs/day: 0.3 packs/day for 4.0 years (1.0 ttl pk-yrs) Types: Cigarettes ? Smokeless tobacco: Never ? Tobacco comments: 5 cigarettes daily Vaping Use ? Vaping status: current everyday user Substance Use Topics ? Alcohol use: No ? Drug use: No FAMILY HISTORY: FAMILY HISTORY Problem Relation Age of Onset ? Diabetes Mother ? Heart Mother ? Hypertension Father ? Heart Father ? No Known Problems Brother ? Heart Maternal Grandmother ? No Known Problems Maternal Grandfather ? Diabetes Paternal Grandmother ? No Known Problems Paternal Grandfather REVIEW OF SYMPTOMS: negative except as noted above PHYSICAL EXAMINATION: VITALS: Last menstrual period 10/08/2024. GENERAL: The patient is well nourished, well hydrated in no acute distress. , The patient is oriented to time, place, and person. NECK: full range of motion LUNGS: Clear to auscultation bilaterally. no wheezes, rhonchi or rales HEART: Regular rate and rhythm, Normal heart sounds, and No murmurs or gallops IMPRESSION: 24yo with AUB and endometrial polyp PLAN: Hysteroscopy, D&C, polypectomy with symphion Pt has been counseled on risks/benefits and alternatives of surgery including but not limited to anesthesia, bleeding, infection, injury to pelvic structures including bowel, bladder, ureters and vessels. Pt wishes to proceed with surgery at this time. I have reviewed and updated past medical and surgical history, medications and allergies Nella Potter MD
[2024-12-17] VITALS (7 sets, daily range): BP systolic 106–122; BP diastolic 59–76; PULSE 56–76; RESP 16–18; TEMP 36.5–36.9; O2SAT 98–100; BMI 24.5
[2024-12-17 08:33] LABS: Internal QC Validated? YES +Cl - CLEAR BKGD; Pregnancy, Urine Negative Negative
--- NOTE | 2024-12-17 08:55 | PRE.ANES_ITS ---
ASA Classification* ASA Classification ASA Classification: 2 Assessment & Plan Anesthesia* Anesthesia Assessment Anesthesia Assessment: Discussed sedation and/or anesthesia options, risks, benefits, and alternatives with patient/parents/legal guardian/POA. Questions invited. The patient/parents/legal guardian/POA seems to understand and agrees to proceed with anesthesia plan. Reviewed the physical assessment, medical history, allergy history and patient home medications list prior to surgery/procedure/anesthetic and documented any changes. Performed airway and anesthesia risk assessments. Anesthesia Type Anesthesia Type: MAC History Source History Obtained from:: Patient and Chart Anesthesia Focused Assessment* Temperature: 98.4 F Pulse Rate: 76 Blood Pressure: 122/73 Respiratory Rate: 18 Pulse Ox: 100 Oxygen Delivery Method: Room Air Airway Assessment Mouth opens: >3 cm Mallampati Score: I Teeth Condition: Intact Neck Range of motion (ROM): Full ROM Focused Labs Anesthesia Preop lab: CBC WBC 7.4 K/mm3 (4.4-11.0) 04/06/24 18:07 04/06/24 RBC 4.28 M/mm3 (4.2-5.4) 04/06/24 18:07 04/06/24 Hgb 13.3 g/dL (12.0-15.0) 04/06/24 18:07 04/06/24 Hct 39.1 % (37-47) 04/06/24 18:07 04/06/24 Plt Count 246 K/mm3 (150-450) 04/06/24 18:07 04/06/24 CHEMISTRY Potassium 3.8 mmol/L (3.3-5.1) 12/17/24 09:15 12/17/24 Sodium 140 mmol/L (133-145) 12/17/24 09:15 12/17/24 BUN 10 mg/dL (4-19) 12/17/24 09:15 12/17/24 Creatinine 0.67 mg/dL (0.70-1.20) L 12/17/24 09:15 Glucose 99 mg/dL (70-99) 12/17/24 09:15 12/17/24 COAG PT 12.1 SECONDS (11.7-14.9) 07/07/19 21:10 10/15/ 19 Urine Test Negative Negative 12/17/24 08:27 12/17/24 Tst Clinic Negative 08/03/20 12:27 08/03/20 Pre-Assessment Diagnosis/Proposed Procedure Planned Operative Procedure(s): Hysteroscopy, Dilation and Curettage Anesthesia History Anesthesia History - sustainable landscape architect: Anesthesia History - sustainable landscape architect Hx Hospitalization No 12/11/24 08:51 Any Problems With Anesthesia No 12/11/24 08:51 Cholinesterase deficiency No 12/11/24 08:51 You/Your Family Experience No 12/11/24 08:51 fever (hyperthermia) with Relationship Recent Exposure to Contagious No 12/17/24 08:37 Disease Does patient have nerve No 12/11/24 08:51 stimulator Patient instructed to have device shut off --Does patient have Pacemaker No 12/17/24 08:37 or ICD? When Was Last Pacemaker Check QUESTION #4 FULL TEXT: You/Your Family Experience fever (hyperthermia) with Anesthesia Last Oral Intake Last Oral intake: Last Oral Intake NPO since 22:00 12/17/24 08:37 Meds taken in AM with sips of No 12/17/24 08:37 water? Meds patient instructed to take am of surgery Any additional information?: Yes PONV PONV - sustainable landscape architect: PONV - sustainable landscape architect Female Yes 12/11/24 08:51 HX of Motion Sickness No 12/11/24 08:51 HX of N/V After Surgery Yes 12/11/24 08:51 Non-Smoker No 12/11/24 08:51 Duration of Surgery greater No 12/11/24 08:51 than 60 minutes Number of Risk Factors 2 12/11/24 08:51 PONV Score Moderate Risk 12/11/24 08:51 Height & Weight Height & Weight: Anesthesia: Height & Weight Height 5 ft 6 in 12/17/24 08:37 Weight: 68.8 kg 12/17/24 08:37 Body Mass Index (BMI) 24.5 12/17/24 08:37 Respiratory Assessment Respiratory Assessment - sustainable landscape architect: Respiratory Tract Infection Hx - sustainable landscape architect Hx Respiratory Tract Infection No 12/11/24 08:51 STOP Sleep Apnea STOP Sleep Apnea - sustainable landscape architect: STOP Sleep Apnea - sustainable landscape architect Hx Hypertension No 12/11/24 08:51 Hx Sleep Apnea No 12/11/24 08:51 CPAP BIPAP Do you snore loudly (louder Yes 12/11/24 08:51 than talking or can be heard Do you often feel tired/ No 12/11/24 08:51 fatigued/ sleepy during daytime? Has anyone observed you stop No 12/11/24 08:51 breathing during sleep? STOP Results Negative 12/11/24 08:51 QUESTION #5 FULL TEXT : Do you snore loudly (louder than talking or can be heard through closed doors)? Tobacco Use History Tobacco Use History - sustainable landscape architect: Tobacco Use History - sustainable landscape architect Tobacco Use Cigarettes 01/18/21 17:56 Smoking Status Current every day smoker 12/11/24 08:51 Hx Tobacco Use Yes 12/11/24 08:51 Years Smoking Packs Smoked per Day Smoking Cessation Date was within the last 15 years Hx Smoking Cessation Date Hx Smoking Cessation No 12/11/24 08:51 Counseling Any additional information?: Yes Smoking Status: Current every day smoker (Patient did not smoke today.) Hematologic Medial History Hematologic Hx - sustainable landscape architect: Hematologic Medical Hx - label stamper Hx of Blood Transfusion No 12/11/24 08:51 Hx of Transfusion in last 3 No 12/11/24 08:51 Months Date of Last Transfusion (if within last 3 months) Ever experience any problems No 12/11/24 08:51 with transfusion(s)? Specify any problems Hx of Preganancy in last 3 No 12/11/24 08:51 Months Nurse Filling Out Transfusion JZOLLINGE 12/11/24 08:51 & Questions: Date: 12/11/24 12/11/24 08:51 Time: 08:59 12/11/24 08:51 Patient unable to answer at this time (ie. confused, unrespo /Reproduction History /Reproductive History - sustainable landscape architect: /Reproductive Hx- sustainable landscape architect Hx Now No 12/11/24 08:51 Gestational Age (in weeks): EDC: Hx Hx Para Hx Section SAB No 12/11/24 08:51 PFSH Medical History Hx of arteriovenous malformation (AVM) Wears contact lenses Wears glasses MRSA infection Depression Anxiety Alcohol use Loss of consciousness Smoker Home Medications ?Medication ?Instructions ?Recorded ?Last Taken ?Type alprazolam 0.5 mg tablet 0.5 mg PO PRN anxiety Unknown History Allergy/AdvReac Type Severity Reaction Status Date / Time No Known Allergies Allergy Verified 12/17/24 08:35 Surgical History History of tonsillectomy and adenoidectomy Social History Smoking Status: Current every day smoker (Patient did not smoke today.) tobacco type: e-cigarettes Review of Systems (Anesthesia) ROS Narrative System reviewed and no additional complaints, except as documented.
--- NOTE | 2024-12-17 09:35 | EMB_PTH ---
PATIENT: IVY HUI LOC: [facility] [place] U#:[id number] AGE/SX: 24/F ROOM: RE12/17/[address]: Dr. Nella Ward, MDDOB: 2000 BED: DIS: 12/17/2024 SPEC #: [id number] RECD: 12/17/24 11:54 STATUS: [facility] #: [id number] JUANI: 12/17/24 09:[address]: Nella Ward DEPT: SURGICAL PATHOLOGY RECD BY: Cristóbal Melendez ENTERED: 12/17/24 11:54 SP TYPE: ENDOM BX/C OTHR DR: Petty Vasquez, AIRCRAFT STRUCTURE MECHANIC-Yoanna Tissues: A - Endometrium, NOS Procedures: Surgery Specimen Level IV HEADER OPERATION: Hysteroscopy, D&C PRE-OP DIAGNOSIS: Abnormal uterine bleeding, endometrial polyp TISSUE SUBMITTED: A- Endometrial curettings MICROSCOPIC DIAGNOSIS A. ENDOMETRIUM, DILATION AND CURETTAGE: * SECRETORY ENDOMETRIUM. * FRAGMENTS OF ENDOCERVICAL MUCOSA WITH FOCAL SQUAMOUS METAPLASIA AND REACTIVE CHANGES. MICROSCOPIC DESCRIPTION Slides are reviewed. GROSS DESCRIPTION A. Received in formalin labeled, Ivy Hui, and designated endometrial curettings and polyp, are multiple dark red-brown, irregularly-shaped, soft tissue fragments, clotted material and mucus that aggregate to 4.5 x 4.0 x 1.2 cm. Totally submitted in four cassettes.REE 12/17/2024 CPT:16145
[2024-12-17 09:50] LABS: Anion Gap 9 (5-15); BUN 10 mg/dL (4-19); BUN/Creat Ratio 14.6 RATIO (10-20); Calcium,Total 8.3 mg/dL (7.6-11.0); Carbon Dioxide 20.4 mmol/L (21.0-32.0); Chloride 111 mmol/L (98-108); Creatinine, Serum 0.67 mg/dL (0.70-1.20); EST Glomerular Filtration Rate 125 (>60); Estimated Creatinine Clearance 121.21 ml/min (50-250); Glucose 99 mg/dL (70-99); Potassium 3.8 mmol/L (3.3-5.1); Sodium Level 140 mmol/L (133-145)
--- NOTE | 2024-12-17 10:19 | DCINST_ITS ---
Discharge Instructions Diet Discharge Diet: No restrictions DC O2, CPAP, BIPAP needs Home O2 Discharge instructions: No Dressing / Incision May resume sexual activity in: 1 week Dressing / Incision Call your doctor if you observe: Fever of 101 or Higher, Inability to urinate, Using more than 1 pad per hour and Uncontrolled pain Follow Up Care Please Follow Up With: Nella Ward MD When: 1-2 weeks post OP if you need an appointment please call [phone] Test Results: Test results from this visit will be discussed in further detail at your follow- up appointment, if applicable. Discharge Plan Admission Attending Provider: Nella Ward Primary Care Provider: Petty Vasquez Instructions Print Language: Greenlandic Discharge Orders/Prescriptions Prescriptions: No Action alprazolam 0.5 mg tablet 0.5 mg PO PRN Other Ambulatory Orders: ,Urine (Routine) Timeframe: 20241217 Facility: [facility] - Location: Laboratory Ordered By: Dr. Jamey Lilly Referrals / Follow Up: Petty Vasquez, CASTING MACHINE OPERATOR-C [Primary Care Provider] - Disposition Disposition (needs filled in before D/C Order can be placed): Home, Self Care
--- NOTE | 2024-12-17 10:19 | PCM.OPRPT ---
Operative Report (Standard) Operative Information Date of Procedure: 12/17/24 Pre-Operative Diagnosis: AUB, Endometrial Polyp Post-Operative Diagnosis: same Surgery/Procedure Performed: Hysteroscopy, d&C can closing machine operator: Yes Associate Professor Of Media Arts: Jono Matamoros MS3 Tasks completed by behavioral assistant: Retracting Additional photographer assistant?: No Type of Anesthesia: MAC RN Documented Start/Stop Times: Operation Date: 12/17/24 09:35 Case Time Into Pre-Op 12/17/24 08:09 Anesthesia Start 12/17/24 09:57 Into Room 12/17/24 09:57 Procedure Start 12/17/24 10:09 Procedure End 12/17/24 10:18 Procedure Start Time: 10:09 Procedure Stop Time: 10:18 Select all DRAINS/GRAFTS/IMPLANTS that apply: None Estimated Blood Loss: 5cc Specimen collected: Yes Description of specimen(s) removed: endometrial curettings Description of surgery: Informed consent was obtained the patient was taken the operating room she was placed in supine position. She was given anesthesia. She was then placed in the [facility] where she was prepped and draped in the normal sterile fashion. At this time the weighted speculum was placed in the posterior fornix of vagina. Single-tooth tenaculum was used to gently grasp the anterior lip the cervix. At this time the uterine cavity was sounded to approximately 8 cm- retroflexed. Gentle dilatation was performed once adequate dilatation of the cervix was achieved the hysteroscope using normal saline as a distention medium was placed. Tubal ostia visualized. no polyps noted, some thickened tissue on anterior aspect of uterus. sharp curettage performed. Tissue will be sent to pathology for evaluation. Tenaculum removed. Good hemostasis. Instrument, lap count correct x 2. Vaginal Sweep was negative. Surgical Findings: no polyps noted. Complications Complications: No Admit VTE Documentation VTE Present on Admission: Yes VTE Mechan Device Prophylaxis: SCD's VTE Pharm Prophylaxis ordered?: No Reason prophylaxis not ordered: Treatment Not Indicated
--- NOTE | 2024-12-17 10:22 | PCM.POST.ANE ---
Anesthesia: Postop Eval I Current Vital Signs Temperature: 97.7 F Pulse Rate: 59 Blood Pressure: 116/75 Respiratory Rate: 16 Pulse Ox: 99 Oxygen Delivery Method: Room Air Assessment Airway patent: Yes Spontaneous unlabored respirations: Yes Mental status: Awake and Calm nausea: No Vomiting: No Anesthesia Complication: No Fluid Hydration Crystalloid volume administer (ml): 500 Total IV fluid infused: 500 Progress Note Anesthesia document: Postop Eval 1 completed: Yes
--- NOTE | 2024-12-17 22:45 | POSTOPAN2_ITS ---
Anesthesia Postop Eval I Sum Postop Eval Completion status Anesthesia document: Postop Eval 1 completed: Yes Anesthesia Postop Eval I Summary Anesthesia Postop Eval I Summary: Anesthesia Postop Eval I: Assessment Summary Airway patent Yes 12/17/24 10:31 AUTOMOTIVE FINANCE MANAGER.[email or web address] Spontaneous unlabored Yes 12/17/24 10:31 AUTOMOTIVE FINANCE MANAGER.HBARR respirations Mental status Awake,Calm 12/17/24 10:31 AUTOMOTIVE FINANCE MANAGER.HBARR nausea No 12/17/24 10:31 AUTOMOTIVE FINANCE MANAGER.HBARR Vomiting No 12/17/24 10:31 AUTOMOTIVE FINANCE MANAGER.HBARR Anesthesia Postop Eval I: Fluid Summary Crystalloid volume administer 500 12/17/24 10:31 AUTOMOTIVE FINANCE MANAGER.HBARR (ml) Colloids volume administered ( ml) Blood Product volume administered (ml) Total IV fluid infused 500 12/17/24 10:31 AUTOMOTIVE FINANCE MANAGER.HBARR Anesthesia Postop Eval I: Summary Notes Anesthesia Complication No 12/17/24 10:31 AUTOMOTIVE FINANCE MANAGER.HBARR Anesthesia Complication Comment: Post-operative progress note Anesthesia: Postop Eval II Evaluation Mental status: Awake and Calm Pain Level: 1 nausea: No Vomiting: No Complications Anesthesia Complication: No
--- NOTE | 2024-12-17 22:45 | PCM.POSTANE2 ---
Anesthesia Postop Eval I Sum Postop Eval Completion status Anesthesia document: Postop Eval 1 completed: Yes Anesthesia Postop Eval I Summary Anesthesia Postop Eval I Summary: Anesthesia Postop Eval I: Assessment Summary Airway patent Yes 12/17/24 10:31 [email or web address] [email or web address] Spontaneous unlabored Yes 12/17/24 10:31 HOPPER [email or web address] respirations Mental status Awake,Calm 12/17/24 10:31 HOPPER [email or web address] nausea No 12/17/24 10:31 HOPPER [email or web address] Vomiting No 12/17/24 10:31 HOPPER [email or web address] Anesthesia Postop Eval I: Fluid Summary Crystalloid volume administer 500 12/17/24 10:31 HOPPER [email or web address] (ml) Colloids volume administered ( ml) Blood Product volume administered (ml) Total IV fluid infused 500 12/17/24 10:31 HOPPER [email or web address].HBARR Anesthesia Postop Eval I: Summary Notes Anesthesia Complication No 12/17/24 10:31 HOPPER [email or web address] Anesthesia Complication Comment: Post-operative progress note Anesthesia: Postop Eval II Evaluation Mental status: Awake and Calm Pain Level: 1 nausea: No Vomiting: No Complications Anesthesia Complication: No
== END 2024-12-17 11:24 | disposition home or self-care (01) ==
LOC: SDC 08:07 → AC 08:08
PROVIDERS: Anesthesiology; PCP Nurse Practitioner Family; Referring Provider Obstetrics & Gynecology; Visit Provider Obstetrics & Gynecology
PROC: 0UB98ZZ Excision of Uterus, Via Natural or Artificial Opening Endoscopic (ICD-10-PCS; CPT 58558; principal; 2024-12-17 09:20)
DX: N85.8 Other specified noninflammatory disorders of uterus (principal); N93.9 Abnormal uterine and vaginal bleeding, unspecified; F17.210 Nicotine dependence, cigarettes, uncomplicated
CPT/HCPCS: 58558; 00952; 80048; 81025; 88305; A4216; J2405

== ENCOUNTER 2025-04-07 23:11 | Emergency (ER) | payer MEDICAID, SELFPAY ==
[2025-04-07 23:12] VITALS: BP 126/83; PULSE 86; RESP 17; TEMP 37; O2SAT 98; BMI 25.5
--- NOTE | 2025-04-07 23:26 | EX.ED.DYSGE1 ---
HPI History of Present Illness Chief Complaint: Itching PFSH PFSH Medical History Hx of arteriovenous malformation (AVM) Wears contact lenses Wears glasses MRSA infection Depression Anxiety Alcohol use Loss of consciousness Smoker Home Medications ?Medication ?Instructions ?Recorded ?Last Taken ?Type NK 04/07/25 Unknown History Allergy/AdvReac Type Severity Reaction Status Date / Time No Known Allergies Allergy Verified 04/07/25 23:12 Surgical History History of tonsillectomy and adenoidectomy Social History Smoking Status: Current every day smoker tobacco type: e-cigarettes EXAM Physical Exam Const Vital Signs: 04/07/25 23:12 Temperature 98.6 F Temperature Source Oral Pulse Rate 86 Respiratory Rate 17 Blood Pressure 126/83 H Blood Pressure Mean 97 Pulse Ox 98 Oxygen Delivery Method Room Air MDM MDM MDM Narrative Medical decision making narrative: HISTORY OF PRESENT ILLNESS: Chief complaint: Itching 25-year-old female presents with itching. Notes itchiness of scalp and all over her body. This began []. No new foods or travel REVIEW OF SYSTEMS: Pertinent positives: Itching Pertinent negatives: Fever, vomiting. PHYSICAL EXAM: Nursing triage notes reviewed, Vital signs reviewed Constitutional: please see mdm HENT: MMM Eyes: Pupils equal round and reactive to light, Extraocular muscles intact Neck: No stridor, no JVD, full neck ROM Lungs: Clear to auscultation, No wheezing or rales. No increased work of breathing, no conversational dyspnea, no accessory muscle use, no nasal flaring. No respiratory distress noted Heart: Regular rate and rhythm, No murmurs, No rubs and No gallops, 2+ distal pulses (radial, femoral, posterior tibial) in all extremities Abdomen: Soft, there is no tenderness, rigidity, rebound or guarding, no obvious peritoneal signs, no palpable pulsatile abdominal masses, no auscultated abdominal bruit : No CVAT Extremities: No edema Neuro: No new focal neurological deficits, cranial nerves II through XII intact, 5/5 strength in all present extremities. Intact sensation to light touch in all present extremities, 2+ reflexes bilateral patella tendons. Skin: Nonspecific erythematous lesions noted to the posterior scalp, no crepitus or bullae, no warmth. Lesions are blanchable. They are itchy to the patient. They do have yellow crusting noted. They are not in a pattern that is consistent with tinea capitis or other fungal infection. They are not warm and no palpable fluctuance to suggest abscess or bacterial infection MEDICAL DECISION MAKING: Chief Complaint: please see HPI External records reviewed: Reviewed prior ED visit History obtained from others: Mother Consults: none MDM Narrative: The patient was initially hemodynamically stable, afebrile and nontoxic-appearing. Scalp exam consistent with nonspecific dermatitis. Will give symptomatic therapy in the form of steroids, antihistamines. No sign of fungal or bacterial infection on my initial exam. Patient was given PCP and dermatology follow-up. The patient and/or family, caregivers express understanding. The patient and/or family, caregivers agrees with the plan. Shared decision making: I will have a discussion with the patient and or visitors regarding risk/benefits of further testing or admission. They will be made aware of of the risk/benefits inherent in this decision they will be given the opportunity to voice understanding. Total critical care time today provided was at least 0 [] minutes. This excludes separately billable procedures. Critical care time (if documented) is secondary to the patient having high probability of clinically significant/life threatening deterioration in the patient's condition which required my urgent intervention. Impression: 1. Itching 2. Scalp rash Dispo: Discharge This note was generated with [employer] dictation software. It may contain incorrect words, spelling, and punctuation that were not noted in review of the chart prior to signing. Discharge Plan Triage Chief Complaint: Itching ED Provider: Alden Miner Dx/Rx/DC Orders Prescriptions: No Action NK Primary Care Provider: Petty Vasquez Referrals: Petty Vasquez, BANK SALES AND SERVICE MANAGER-C [Primary Care Provider] - Print Language: Wolof
--- OUTSIDE RECORDS SUMMARY | 2025-04-08 00:07 | XMS RPT_ITS | CCD ---
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 catheter in situ; Translations: [Encounter for adjustment and management of vascular access device] Onset: 9 Resolved: 9 08-21-2019 Episodic Other complications of (15 sources) Anemia of ; Translations: [Anemia complicating , third trimester] Onset: 9 Resolved: 9 08-21-2019 Chronic Other complications of (2 sources) Nausea and vomiting; Translations: [Vomiting of , unspecified] Onset: 9 Resolved: 9 07-11-2019 Episodic Other complications of (15 sources) Disease of the respiratory system complicating , childbirth and/or the puerperium; Translations: [Diseases of the respiratory system complicating , unspecified trimester] Onset: 9 Resolved: 9 08-21-2019 Episodic Other complications of (13 sources) Vomiting of , unspecified; Translations: [Unspecified vomiting of , unspecified as to episode of care or not applicable] Onset: 9 Resolved: 9 07-11-2019 Episodic Other connective tissue disease (20 sources) H/O: musculoskeletal disease; Translations: [Personal history of other diseases of the musculoskeletal system and connective tissue] Onset: 9 07-03-2019 Episodic Other nervous system disorders (20 sources) Postoperative pain ; Translations: [Other acute postprocedural pain] Onset: 3 01-04-2023 Episodic Other upper respiratory disease (20 sources) Oropharyngeal lesion; Translations: [Other diseases of pharynx] Onset: 3 10-18-2022 Episodic Other upper respiratory disease (20 sources) Mass of head; Translations: [Other diseases of pharynx] Onset: 3 01-04-2023 Episodic Residual codes; unclassified (15 sources) FH: Congenital heart disease; Translations: [Family history of other congenital malformations, deformations and chromosomal abnormalities] Onset: 9 Resolved: 9 08-21-2019 Episodic Screening and history of mental health and substance abuse codes (20 sources) H/O: depression; Translations: [Personal history of other mental and behavioral disorders] Onset: 9 Resolved: 9 01-06-2019 Episodic Short gestation; low weight; and growth retardation (15 sources) Premature ; Translations: [ , unspecified weeks of gestation] Onset: 9 Resolved: 9 08-21-2019 Episodic Spondylosis; intervertebral disc disorders; other back problems (15 sources) Backache; Translations: [Dorsalgia, unspecified] Onset: 4 Resolved: 7 06-26-2017 Episodic Urinary tract infections (20 sources) Urinary tract infection, site not specified; Translations: [Recurrent urinary tract infection] Onset: 7 Episodic Results Test Name Value Interpretation Reference Range Facility Office Visit Reporton 2024 Office Visit Report [facility] [address] [place] [address] OFFICE VISIT Date of Service: 03/01/25 MR#: [id number] Acct: [id number] Patient: EB HUI Rep #: [id number] 5 : 2000 Provider: SARINA Sanchez Age/Sex: 25/F Location: [facility] Status: Signed Intake Vital Signs 02/23/25 06:20 03/01/25 14:24 Height 1.68 m 1.68 m Weight: 70.307 kg 69.853 kg BMI 25.0 24.8 BP 109/76 122/82 H Blood Pressure Location Lt brachial Lt brachial Position Sitting Sitting Pulse 76 90 Pulse Source Monitor Monitor Temp 98.2 F 98.6 F Temp Source Temporal Temporal Pulse Oximetry (%) 100 Intake Visit Reasons: SORE ON LIP/ COLD SORE? Chief Complaint: lip cracked Allergies No Known Allergies Allergy (Verified 03/01/25 14:25) Medications ???Medication ???Instructions ???Recorded ???Confirmed ???Type alprazolam 0.5 mg tablet 0.5 mg PO PRN anxiety 06/12/2306/17 History mupirocin 2 % topical ointment 1 applic topical BID #15 grams 06/1703/01/25 Rx PFSH Medical History Hx of arteriovenous malformation (AVM) Wears contact lenses Wears glasses MRSA infection Depression Anxiety Alcohol use Loss of consciousness Smoker Surgical History History of tonsillectomy and adenoidectomy Social History Smoking Status: Current every day smoker (Patient did not smoke today.) tobacco type: e-cigarettes HPI HPI Chief Complaint: lip cracked Details: EB HUI, is a 25 F who presents to the office today for lip cracked. There is cracking and irritation of the left lip at the angle. It is mildly irritated but not really painful. She has had this at least 1 month. She has recently been on 3 rounds of diflucan for a vaginal yeast infection. She has no other lesions in her mouth/tongue/gums. Her boyfriend has a similar cracked area on his lip. ROS Const Constitutional: No chills, fatigue or fever(s) ENT ENT: Positive for mouth lesions (lip) Endo Endocrine: No fatigue Exam Const General: cooperative, healthy appearing, comfortable, no acute distress, well developed and well groomed Nutritional Appearance: average body habitus and well nourished Orientation: alert, awake and oriented x3 HENMT Head: normocephalic and atraumatic Mouth: oral mucosae normal, tongue normal, lip abnormal and other (cracking, redness, slight swelling at the left lip angle) Teeth and gingiva: dentition normal Throat: posterior oropharynx normal Coding Level of Care Code Off vis,est,level 3 Diagnoses Angular cheilitis K13.0 Assessment and Plan Assessment and Plan (1) Angular cheilitis: Status: Acute Plan: Pt has angular cheilitis of the left lip border. It has been there over 1 month so i doubt it is viral, she has recently been on 3 rounds of diflucan for vaginal yeast infection so it is unlikely fungal. I suspect it is bacterial at this point. She will be placed on mupirocin to use bid 7-14 days. vaseline at night to prevent dryness. if no improvement follow up with pcp 2 weeks. Medications: New mupirocin 2% apply bid at least 7 days 1 applic topical BID 15 grams 0RF 03/01/25 1500 Date Tomás Justice Signature: Date (if applicable) CC: Normal [facility] Office Visit Reporton 2024 Office Visit Report [facility] [address] [place] [address] OFFICE VISIT Date of Service: 02/23/25 MR#: [id number] Acct: [id number] Patient: EB HUI Rep #: [id number] 4 : 2000 Provider: SARINA Sanchez Age/Sex: 25/F Location: [facility] Status: Signed Intake Vital Signs 12/17/24 08:37 02/23/25 06:20 Height 1.68 m 1.68 m Weight: 70.307 kg BMI 25.0 BP 109/76 Blood Pressure Location Lt brachial Position Sitting Pulse 76 Pulse Source Monitor Temp 98.2 F Temp Source Temporal Pulse Oximetry (%) 100 Intake Visit Reasons: YEAST INFECTION Chief Complaint: yeast infection Allergies No Known Allergies Allergy (Verified 02/23/25 06:22) Medications ???Medication ???Instructions ???Recorded ???Confirmed ???Type alprazolam 0.5 mg tablet 0.5 mg PO PRN anxiety 06/12/2312/15 History fluconazole 150 mg tablet 150 mg PO ONCE #1 TAB 02/23/2512/15 Rx PFSH Medical History Hx of arteriovenous malformation (AVM) Wears contact lenses Wears glasses MRSA infection Depression Anxiety Alcohol use Loss of consciousness Smoker Surgical History History of tonsillectomy and adenoidectomy Social History Smoking Status: Current every day smoker (Patient did not smoke today.) tobacco type: e-cigarettes HPI HPI Chief Complaint: yeast infection Details: EB HUI, is a 25 F who presents to the office today for yeast infection. She has had several days of vaginal irritation with white chunky discharge. She denies foul odor. She has recently been on doxy and keflex. When she was on doxy she was given a dose of fluconazole in case of yeast infection. She took this but did not have relief of symptoms. She also tried some OTC yeast product but she feels that made it worse. She does not have urinary symptoms, no flank pain, no fever/chills/body ache, no abd pain, no vaginal bleeding. ROS Const Constitutional: No body ache, chills or fever(s) Gastro GI: No abdominal pain Genitourinary-Female: Positive for Vaginal Itching; No burning urination, side pain, abnormal vaginal bleeding or vaginal odor Exam Const General: cooperative, healthy appearing, comfortable, no acute distress, well developed and well groomed Nutritional Appearance: average body habitus and well nourished Orientation: alert, awake and oriented x3 HENMT Head: normocephalic and atraumatic Resp Effort Inspection: normal respiratory effort, able to speak in complete sentences, symmetric chest movement and no cough Coding Level of Care Code Off vis,est,level 3 Diagnoses Yeast infection B37.9 Assessment and Plan Assessment and Plan (1) Yeast infection: Status: Acute Plan: white, chunky discharge and vaginal irritation/itching without abnormal odor after two rounds of abx - doxy and keflex. did not improve with first dose of diflucan. Repeat 2nd dose 72 hours after first dose - rx sent. If this does not resolve her symptoms then she should follow up with a women's health provider for further work up. Medications: New fluconazole 150 mg PO ONCE 1 TAB 0RF 02/23/25 0636 Date Tomás Justice Signature: Date (if applicable) CC: Normal [facility] URINE CULTURE [CCL]on 2024 Bacteria identified Cx Nom (U) URCUL See Results Below See Below CULTURE, URINE NORMAL UROGENITAL ZIGGY 50,000-<100,000 CFU/ml Normal urogenital ziggy SOURCE: Urine (Nonspecific) [address] [address] Marcos Shukla III, M.D. [id number] SEND TO IC NO Normal [facility] Comment on above: Performed By: #### 2 97022 #### [facility],[address] [place] [address] Bacteria Ur Culton 5 Bacteria identified Cx Nom (U) ORGANISM ID: 1 50,000-<100,000 CFU/ml Normal urogenital ziggy Normal [facility] Comment on above: Performed By: #### 6 30-4 ####[facility] LABCLIA [id number] [employer] [address] [facility] LYME AB PANEL WBLOT [CCL]on 01-15-2025 LYME AB PANEL WBLOT [CCL] Normal [facility] Comment on above: Result Comment: ly _ LYME AB PANEL WBLOT [CCL]_ SEE SCANNED REPORT Performed By: #### 2 21941 #### [address] [address] EBV AB TO VIRAL CAPSID ATIGE N,IgM [CCL]on 01-13-2025 EBV VCA IgM, Qual Negative Normal Negative [facility] Comment on above: Result Comment: No s erological evidence of recent EBV infection. [facility] [address] [place] [address] Marcos Shukla III, M.D. [id number] Performed By: #### 2 77724 #### [address] [address] LYME EARLY (SIGNS/SYMP <=30 DAYS) [CCL]on 01-13-2025 Lyme IgG IgM Ab Negative Normal Negative [facility] Comment on above: Result Comment: Rece nt infection with B. burgdorferi sensu lato cannot be excluded if the specimen collected within four weeks after the onset of signs and symptoms or within six weeks after a known tick exposure. Clinical and epidemiological correlation is required. [facility] [address] [employer] [place] [id number] Marcos Shukla III, M.D. [id number] Performed By: #### 2 21239 #### [address] [address] VITAMIN D, 1,25 - DIHYDROXY [CCL]on 01-13-2025 Vit D,1,25 Dihydroxy 36.6 pg/mL Normal 19.9-79.3 [facility] Comment on above: Result Comment: [facility] [address] [place] [address] Marcos Shukla III, M.D. [id number] Performed By: #### 2 50285 #### [facility],[address] [place], [place] [address] 1,25-dihydroxyvitamin D3 [Ma ss/Vol]on 01-12-2025 VIT D1,25 DIHYDROXY 36.6 pg/mL Normal 19.9-79.3 [facility] Comment on above: Order Comment: Speci men Type: BLOOD SPECIMENOrdering Facility: [facility] Address: [address] [place] [address] Performed By: #### 7 886-5, 1649-3, 81920-3, 78719-9 ####[facility] LABIA [id number] [place] [id number] [place] B. burgdorferi IgG and IgM p min (S)on 01-12-2025 B. burgdorferi IgG+IgM Qn (S) Negative Normal Negative [facility] Comment on above: Order Comment: Speci rodger Type: BLOOD SPECIMENOrdering Facility: [facility] Address: [address] [place] [address] Result Comment: Rece nt infection with B. burgdorferi sensu lato cannot be excluded if the specimen collected within four weeks after the onset of signs and symptoms or within six weeks after a known tick exposure. Clinical and epidemiological correlation is required. Performed By: #### 7 886-5, 1649-3, 76463-1, 91612-0 ####[facility] LABIA [id number] [address] [address] [place] B. burgdorferi IgG+IgM IB Ql (S)on 01-12-2025 B. burgdorferi Ab band pattern IB (S) [Interp] IgM antibodies against Borrelia burgdorferi are present on Western Blot, but IgG antibodies were not detected. This pattern can be seen in the early stages of infection with Borrelia burgdorferi. However, this pattern could also be caused by a false-positive result in the IgM Western blot, particularly if there is no history of recent exposure., If clinically indicated, a repeat serology in 4-6 weeks to evaluate patient for the development of IgG antibodies may be helpful. Clinical correlation is necessary. Normal [facility] Comment on above: Order Comment: Speci men Type: BLOOD SPECIMENOrdering Facility: [facility] Address: [address] [place] [address] Performed By: #### 7 886-5, 1649-3, 76494-5, 82678-8 ####[facility] LABIA [id number] [address] [address] [place] B. burgdorferi IgG band pattern IB (S) [Interp] No Bands Seen Normal [facility] Comment on above: Order Comment: Speci [facility] Type: BLOOD SPECIMENOrdering Facility: [facility] Address: [address] [place] [address] Performed By: #### 7 886-5, 1649-3, 22915-6, 76569-0 ####[facility] LABIA [id number] [address] [address] [place] B. burgdorferi IgG IB Ql (S) Negative Normal Negative [facility] Comment on above: Order Comment: Speci [facility] Type: BLOOD SPECIMENOrdering Facility: [facility] Address: [address] [place] [address] Result Comment: CDC criteria for a positive Western blot are the presence of >=5 bands for IgG. Performed By: #### 7 886-5, 1649-3, 98078-9, 15823-2 ####[facility] LABIA [id number] [address] [address] [place] B. burgdorferi IgM band pattern IB (S) [Interp] p-41 Normal [facility] Comment on above: Order Comment: Speci [facility] Type: BLOOD SPECIMENOrdering Facility: [facility] Address: [address], [place] [address] Result Comment: p-39 Performed By: #### 7 886-5, 1649-3, 91812-2, 87672-5 ####[facility]CLIA [id number] [address] B. burgdorferi IgM IB Ql (S) Positive Abnormal Negative [facility] Comment on above: Order Comment: Speci men Type: BLOOD SPECIMENOrdering Facility: [facility] Address: [address] [place] [address] Result Comment: CDC criteria for a positive Western Blot are the presence of >=2 bands for IgM. Performed By: #### 7 886-5, 1649-3, 59356-9, 10500-1 ####[facility] LABCLIA [id number] [address] [place] CBC + DIFFon 01-12-2025 Baso # 0.01 x10EE3/UL Normal 0.00 - 0.10 [facility] Comment on above: Performed By: #### 2 66369 #### [facility],[address] [place] [address] Basophils/100 WBC (Bld) 0.2 % Normal 0.0 - 2.0 [facility] Comment on above: Performed By: #### 2 31115 #### [facility],[address] [place] [address] CBC + DIFF Normal [facility] Comment on above: Result Comment: CBC- COMPLETE BLOOD COUNT Performed By: #### 2 34635 #### [facility],[address] [place] [address] EO # 0.02 x10EE3/UL Normal 0.00 - 0.50 [facility] Comment on above: Performed By: #### 2 97258 #### [facility],[address] [place] [address] Eosinophils/100 WBC (Bld) 0.4 % Normal 0.0 - 7.0 [facility] Comment on above: Performed By: #### 2 20971 #### [facility],[address] [place] [address] Erythrocyte distribution width (RBC) [Ratio] 12.5 % Normal 12.0 - 15.6 [facility] Comment on above: Performed By: #### 2 17127 #### [facility],[address] [place] [address] Hematocrit (Bld) [Volume fraction] 42.9 % Normal 34.0 - 46.0 [facility] Comment on above: Performed By: #### 2 05973 #### [facility],[address] [place] [address] Hemoglobin (Bld) [Mass/Vol] 15.0 g/dL Normal 12.0 - 16.0 [facility] Comment on above: Performed By: #### 2 19911 #### [place] [address] Lymph # 1.94 x10EE3/UL Normal 0.80 - 2.80 [facility] Comment on above: Performed By: #### 2 65945 #### [place] [address] Lymphocytes/100 WBC (Bld) 28.2 % Normal 20.0 - 45.0 [facility] Comment on above: Performed By: #### 2 97515 #### [place] [id number] MANUAL DIFF N/A Normal [facility] Comment on above: Performed By: #### 2 93615 #### [place] [address] MCH (RBC) [Entitic mass] 31 pg Normal 27 - 33 [facility] Comment on above: Performed By: #### 2 28965 #### [place] [address] MCHC 35 X10 3 Normal 32 - 36 [facility] Comment on above: Performed By: #### 2 21746 #### [facility],[address] [place] [address] MCV (RBC) [Entitic vol] 90 fL Normal 80 - 99 [facility] Comment on above: Performed By: #### 2 50934 #### [facility],[address] [place] [address] Garrard # 0.41 x10EE3/UL Normal 0.20 - 1.00 [facility] Comment on above: Performed By: #### 2 02438 #### [facility],[address] [place] [address] MONOS % 5.9 % Normal 0.0 - 10.0 [facility] Comment on above: Performed By: #### 2 56961 #### [facility],[address] [place] [address] Morphology Jez (Bld) [Interp] N/A Normal [facility] Comment on above: Performed By: #### 2 07175 #### [facility],[address] [place] [address] Neut # 4.48 x10EE3/UL Normal 1.50 - 7.10 [facility] Comment on above: Performed By: #### 2 42980 #### [facility],[address] [place] [address] Neutrophils/100 WBC (Bld) 65.4 % Normal 46.0 - 76.0 [facility] Comment on above: Performed By: #### 2 77950 #### [facility],[address] [place] [address] PLATELET 294 x10EE3/UL Normal 150 - 450 [facility] Comment on above: Performed By: #### 2 62824 #### [facility],[address] [place] [address] Platelet mean volume (Bld) [Entitic vol] 8.0 fL Normal 6.6 - 10.5 [facility] Comment on above: Result Comment: AUTO MATED DIFFERENTIAL Performed By: #### 2 37922 #### [facility],[address] [place] [address] RBC 4.78 x 10EE6/UL Normal 4.10 - 5.30 [facility] Comment on above: Performed By: #### 2 69862 #### [facility],[address] [place] [address] WBC 6.9 x 10EE3/UL Normal 4.5 - 10.8 [facility] Comment on above: Performed By: #### 2 15243 #### [facility],[address] [place], [place] [address] CMP with eGFRon 01-12-2025 AGE 24 years Normal [facility] Comment on above: Performed By: #### 2 24724 #### [facility],[address] [place], [place] [address] Albumin [Mass/Vol] 4.1 g/dL Normal 3.4 - 5.0 [facility] Comment on above: Performed By: #### 2 58072 #### [facility],[address] [place] [address] Albumin/Globulin [Mass ratio] 1.1 {ratio} Normal 0.9 - 1.6 [facility] Comment on above: Performed By: #### 2 66660 #### [facility],[address] [place] [address] ALK PHOS 53 U/L Normal 46 - 116 [facility] Comment on above: Performed By: #### 2 55296 #### [address] [address] ALT [Catalytic activity/Vol] 19 U/L Normal 16 - 63 [facility] Comment on above: Performed By: #### 2 37929 #### [facility],[address] [place] [address] Anion gap [Moles/Vol] 10 mmol/L Normal 10 - 20 [facility] Comment on above: Performed By: #### 2 27965 #### [facility],[address] [place] [address] AST [Catalytic activity/Vol] 14 U/L Normal 13 - 39 [facility] Comment on above: Performed By: #### 2 64251 #### [facility],[address] [place], [place] [address] B/C RATIO 18 ratio Normal 0 - 30 [facility] Comment on above: Performed By: #### 2 70880 #### [facility],[address] [place] [address] Bilirubin [Mass/Vol] 0.6 mg/dL Normal 0.2 - 1.0 [facility] Comment on above: Performed By: #### 2 05686 #### [facility],[address] [place], [place] [address] Calcium [Mass/Vol] 9.1 mg/dL Normal 8.5 - 10.1 [facility] Comment on above: Performed By: #### 2 08789 #### [facility],[address] [place] [address] Chloride [Moles/Vol] 102 mmol/L Normal 98 - 107 [facility] Comment on above: Performed By: #### 2 57067 #### [facility],[address] [place], [place] [address] CMP with eGFR Normal [facility] Comment on above: Result Comment: COMP REHENSIVE METABOLIC PANEL Performed By: #### 2 64508 #### [address] [address] CO2 [Moles/Vol] 30.0 mmol/L Normal 21.0 - 32.0 [facility] Comment on above: Performed By: #### 2 37601 #### [facility],[address] [place] [address] Creatinine [Mass/Vol] 0.77 mg/dL Normal 0.55 - 1.02 [facility] Comment on above: Performed By: #### 2 53735 #### [facility],[address] [place], [place] [address] GFR/1.73 sq M.predicted among non-blacks MDRD (S/P/Bld) [Vol rate/Area] mL/min/{1.73_m2} Normal 60 - 999 [facility] Comment on above: Performed By: #### 2 22076 #### [facility],[address] [place], [place] [address] Result Comment: ACCO RDING TO THE NATIONAL KIDNEY DISEASE EDUCATION PROGRAM(NKDE), A NORMAL eGFR IS A VALUE GREATER THAN OR EQUAL TO 60 ML/MIN/1.73 SQ METERS. CHRONIC KIDNEY DISEASE: <60mL/MIN/1.73 SQ METERS KIDNEY FAILURE: <15mL/MIN/1.73 SQ METERS THIS TEST SHOULD ONLY BE USED FOR PATIENTS 18 YEARS OF AGE AND OLDER. Globulin (S) [Mass/Vol] 3.8 g/dL Normal 1.5 - 3.8 [facility] Comment on above: Performed By: #### 2 23705 #### [place] [id number] Glucose [Mass/Vol] 81 mg/dL Normal 74 - 106 [facility] Comment on above: Performed By: #### 2 68368 #### [facility],[address] [place] [address] Potassium [Moles/Vol] 4.0 mmol/L Normal 3.5 - 5.1 [facility] Comment on above: Performed By: #### 2 15929 #### [address] [address] Protein [Mass/Vol] 7.9 g/dL Normal 6.4 - 8.2 [facility] Comment on above: Performed By: #### 2 50508 #### [facility],[address] [place] [address] Sodium [Moles/Vol] 138 mmol/L Normal 136 - 145 [facility] Comment on above: Performed By: #### 2 60254 #### [facility],[address] [place] [address] Urea nitrogen [Mass/Vol] 14 mg/dL Normal 7 - 18 [facility] Comment on above: Performed By: #### 2 22280 #### [facility],[address] [place] [address] EBV capsid IgM Qn (S)on 12-23 EBV VCA IGM, QUAL Negative Normal Negative [facility] Comment on above: Order Comment: Speci men Type: BLOOD SPECIMENOrdering Facility: [facility] Address: [address] [place] [address] Result Comment: No s erological evidence of recent EBV infection. Performed By: #### 7 886-5, 1649-3, 33011-4, 74331-1 ####[facility] LABCLIA [id number] [place] [address] [place] LIPID PROFILEon 01-12-2025 Cholesterol [Mass/Vol] 190 mg/dL Normal 0 - 240 [facility] Comment on above: Performed By: #### 2 26838 #### [facility],[address] [place] [address] Cholesterol in HDL [Mass/Vol] 47 mg/dL Normal 40 - 60 [facility] Comment on above: Performed By: #### 2 [id number] #### [facility],[address] [place] [address] Cholesterol in LDL [Mass/Vol] 123 mg/dL Normal 0 - 129 [facility] Comment on above: Performed By: #### 2 51697 #### [facility],[address] [place] [address] Cholesterol.total/Ch olesterol in HDL [Mass ratio] 4.0 {ratio} Normal 0.0 - 5.0 [facility] Comment on above: Performed By: #### 2 [id number] #### [facility],[address] [place], [place] [id number] Lipid 1996 panel Normal [facility] Comment on above: Result Comment: LIPI D PROFILE Performed By: #### 2 46421 #### [facility],[address] [place] [address] Triglyceride [Mass/Vol] 101 mg/dL Normal 0 - 150 [facility] Comment on above: Performed By: #### 2 70558 #### [facility],[address] [place], [place] [id number] CNPNon 12-23-2024 CNPN Telephone (OBGYWM) -- EB HUI ([id number]) 1 F Date Time Provider Department 12/23/24 NELLA JOHN OBBRIAN During your visit today, we recorded the following information about you: Nella John MD 12/23/2024 4:13 PM Signed Please notify patient that tissue is benign from [facility]. 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] 02/04/2017 Endometrial polyp [N84.0] 09/05/2017 01/27/2019 Adenomyosis [N80.03] 09/05/2017 01/27/2019 Quit smoking [Z87.891] 01/06/2019 08/21/2019 History of depression [Z86.59] 01/06/2019 Nausea and vomiting in [O21.9] 01/06/2019 07/11/2019 History of recurrent UTIs [Z87.440] 01/06/2019 08/21/2019 History of scoliosis [Z87.39] 01/06/2019 Family history of congenital heart defect [Z82.*01/06/2019 08/21/2019 BV (bacterial vaginosis) [N76.0, B96.89] 01/27/2019 07/11/2019 Anemia during in third trimester [O99*06/19/2019 08/21/2019 Pre-eclampsia in third trimester [O14.93] 07/06/2019 08/21/2019 Severe preeclampsia, third trimester [O14.13] 07/08/2019 08/21/2019 Encounter for induction of labor [Z34.90] 07/08/2019 08/21/2019 Prematurity [P07.30] 07/08/2019 08/21/2019 Scoliosis [M41.9] 07/08/2019 History of MRSA infection [Z86.14] 07/08/2019 Pneumonia affecting [O99.519, J18.9] 07/08/2019 08/21/2019 PICC (peripherally inserted central catheter) i*07/08/2019 08/21/2019 Herpes [B00.9] 09/22/2020 12/19/2020 Oropharyngeal lesion [J39.2] 10/18/2022 Smoker [F17.200] 01/03/2023 Oropharyngeal mass [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] 01/04/2023 Postoperative pain [G89.18] 01/04/2023 Other chest pain [R07.89] 01/05/2023 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] 10/29/2024 Endometrial polyp [N84.0] 10/29/2024 Encounter Status:Closed by JOLANTA DAY on 12/24/24 Normal [facility] Anion gap in Serum or Plasma Ordered By: Jamey Lilly on 12-17-2024 Anion gap [Moles/Vol] 9 mmol/L 5-15 [facility] BUN/creatinine ratioOrdered By: Jamey Lilly on 12-17-2024 Urea nitrogen/Creatinine [Mass ratio] 14.6 mg/mg 10- [facility] Basic Metabolic Profile (BMP )on 12-17-2024 BUN/CRE 14.6 RATIO Normal - [facility] Comment on above: Performed By: #### L 500.2500 #### [facility] Laboratory [address] [place], [address] Calcium [Mass/Vol] 8.3 mg/dL Normal 7.6-11.0 [facility] Comment on above: Performed By: #### L 500.2500 #### [facility] [address] [place], [address] Chloride [Moles/Vol] 111 mmol/L High 98-108 [facility] Comment on above: Performed By: #### L 500.2500 #### [facility] [address] [place], [address] CO2 [Moles/Vol] 20.4 mmol/L Low 21.0-32.0 [facility] Comment on above: Performed By: #### L 500.2500 #### [facility] [address] [place], [address] Creatinine [Mass/Vol] 0.67 mg/dL Low 0.70-1.20 [facility] Comment on above: Performed By: #### L 500.2500 #### [facility] [address] [place], [address] ECRCL 121.21 ml/min Normal 50-250 [facility] Comment on above: Performed By: #### L 500.2500 #### [facility] Laboratory [address] [place], [address] GAP 9 Normal 5-15 [facility] Comment on above: Performed By: #### L 500.2500 #### [facility] Laboratory [address] [place], [address] GFR/1.73 sq M.predicted among non-blacks MDRD (S/P/Bld) [Vol rate/Area] 125 mL/min/{1.73_m2} Normal >60 [facility] Comment on above: Result Comment: mL/m in/1.73m2 CKD-EPI Creatinine Equation (2020) Performed By: #### L 500.2500 #### [facility] Laboratory [address] [place], [address] Glucose [Mass/Vol] 99 mg/dL Normal 70-99 [facility] Comment on above: Performed By: #### L 500.2500 #### [facility] [address] [place], [address] Potassium [Moles/Vol] 3.8 mmol/L Normal 3.3-5.1 [facility] Comment on above: Performed By: #### L 500.2500 #### [facility] [address] [place], [address] Sodium [Moles/Vol] 140 mmol/L Normal 133-145 [facility] Comment on above: Performed By: #### L 500.2500 #### [facility] [address] [place], [address] Urea nitrogen [Mass/Vol] 10 mg/dL Normal 4-19 [facility] Comment on above: Performed By: #### L 500.2500 #### [facility] Laboratory [address] [place], [address] Carbon dioxide, total [Moles /volume] in Central venous bloodOrdered By: Jamey Lilly on 12-17-2024 CO2 [Moles/Vol] 20.4 mmol/L Low 21.0-32.0 [facility] Chloride assayOrdered By: Diamond on 12-17-2024 Chloride [Moles/Vol] 111 mmol/L High 98-108 [facility] Discharge Instructionon 11-22 Discharge Instruction [facility] Medical Records Department [address] [place] [address] Instructions for Home/Discharge Instructions 12/17/24 1019 MR#: [id number] Acct: [id number] Name: EB UHI Rep #: [id number] : 2000 24 From: Nella Ward MD PCP: JEIMY Abrams Status:REG SDC Discharge Instructions Diet Discharge Diet: No restrictions DC O2, CPAP, BIPAP needs Home O2 Discharge instructions: No Dressing / Incision May resume sexual activity in: 1 week Dressing / Incision Call your doctor if you observe: Fever of 101 or Higher, Inability to urinate, Using more than 1 pad per hour and Uncontrolled pain Follow Up Care Please Follow Up With: Nella Ward MD When: 1-2 weeks post OP if you need an appointment please call [phone] Test Results: Test results from this visit will be discussed in further detail at your follow-up appointment, if applicable. Discharge Plan Admission Attending Provider: Nella Ward Primary Care Provider: Petty Vasquez Instructions Print Language: Guamanian Discharge Orders/Prescriptions Prescriptions: No Action alprazolam 0.5 mg tablet 0.5 mg PO PRN Other Ambulatory Orders: ,Urine (Routine) Timeframe: 20241217 Facility: [facility] - Location: Laboratory Ordered By: Dr. Jamey Lilly Referrals / Follow Up: Petty Vasquez NP-C [Primary Care Provider] - Disposition Disposition (needs filled in before D/C Order can be placed): Home, Self Care 12/17/24 1019 Nella Ward MD CC: WIND UP OPERATOR-C NP. Petty Vasquez Signed Normal [facility] Estimation of creatinine dora aranceOrdered By: Jamey Lilly on 12-17-2024 Estimated Creatinine Clearance Calc 121.21 ml/min 50-250 [facility] GFR/1.73 sq M.predicted juanita g non-blacks MDRD (S/P/Bld) [Vol rate/Area]Ordered By: Jamey Lilly on 12-17-2024 Estimated GFR (MDRD) Non-Af Amer 125 >60 [facility] Comment on above: mL/min/1.73m2 CKD-EP I Creatinine Equation (2020) Glomerular filtration rate ( GFR) estimation/1.73 sq m using serum, plasma, or whole bOrdered By: Jamey Lilly on 12-17-2024 GFR/1.73 sq M.predicted among non-blacks MDRD (S/P/Bld) [Vol rate/Area] 125 mL/min/{1.73_m2} >60 [facility] Comment on above: mL/min/1.73m2 CKD-EP I Creatinine Equation (2020) MR/POSTOP.ANEon 12-17-2024 MR/POSTOP.ANE [facility] Medical Records Department [address] [place] [address] Anesthesia Postop Eval I 12/17/24 1022 MR#: [id number] Acct: [id number] Name: EB HUI Rep #: [id number] : 2000 24 From: Eunice Pereira CRNA PCP: JEIMY Abrams Status:REG SDC Y Race: C Location: [place] [address] Anesthesia: Postop Eval I Current Vital Signs Temperature: 97.7 F Pulse Rate: 59 Blood Pressure: 116/75 Respiratory Rate: 16 Pulse Ox: 99 Oxygen Delivery Method: Room Air Assessment Airway patent: Yes Spontaneous unlabored respirations: Yes Mental status: Awake and Calm nausea: No Vomiting: No Anesthesia Complication: No Fluid Hydration Crystalloid volume administer (ml): 500 Total IV fluid infused: 500 Progress Note Anesthesia document: Postop Eval 1 completed: Yes 12/17/24 1031 Date Eunice Pereira CRNA Cosigner Signature: Date CC: Signed Normal [facility] [id number] 12-17-2024 MR/POSTOPAN2 [facility] Medical Records Department [address] [place] [address] Anesthesia Postop Eval II 12/17/242244 MR#: [id number] Acct: [id number] Name: EB HUI Rep #: [id number] : 2000 24 From: Jamey Lilly MD PCP: JEIMY Abrams Status:[facility] Y Race: C Location: [facility] Anesthesia Postop Eval I Sum Postop Eval Completion status Anesthesia document: Postop Eval 1 completed: Yes Anesthesia Postop Eval I Summary Anesthesia Postop Eval I Summary: Anesthesia Postop Eval I: Assessment Summary Airway patent Yes 12/17/24 10:31 YARN [email or web address].HBARR Spontaneous unlabored Yes 12/17/24 10:31 YARN [email or web address].HBARR respirations Mental status Awake,Calm 12/17/24 10:31 YARN WORKER.HBARR nausea No 12/17/24 10:31 YARN WORKER.HBARR Vomiting No 12/17/24 10:31 YARN [email or web address].HBARR Anesthesia Postop Eval I: Fluid Summary Crystalloid volume administer 500 12/17/24 10:31 YARN WORKER.HBARR (ml) Colloids volume administered ( ml) Blood Product volume administered (ml) Total IV fluid infused 500 12/17/24 10:31 YARN [email or web address].HBARR Anesthesia Postop Eval I: Summary Notes Anesthesia Complication No 12/17/24 10:31 YARN [email or web address].HBARR Anesthesia Complication Comment: Post-operative progress note Anesthesia: Postop Eval II Evaluation Mental status: Awake and Calm Pain Level: 1 nausea: No Vomiting: No Complications Anesthesia Complication: No 12/17/242244 Date Jamey Kancherla MD Cosigner Signature: Date CC: Signed Normal [facility] Operative Reporton 5 Operative Report [facility] Medical Records Department [address] [place] [address] Operative Report 12/17/24 1019 MR#: [id number] Acct: [id number] Name: EB HUI Rep #: [id number] : 2000 24 From: Nella Ward MD PCP: JEIMY Abrams Status:REG [facility] Location: [place] [address] Operative Report (Standard) Operative Information Date of Procedure: 12/17/24 Pre-Operative Diagnosis: AUB, Endometrial Polyp Post-Operative Diagnosis: same Surgery/Procedure Performed: Hysteroscopy, d C laborer petroleum refinery: Yes Lactation Specialist: Jono Matamoros MS3 Tasks completed by sales assistant displays: Retracting Additional campus administrative assistant?: No Type of Anesthesia: MAC RN Documented Start/Stop Times: Operation Date: 12/17/24 09:35 Case Time Into Pre-Op 12/17/24 08:09 Anesthesia Start 12/17/24 09:57 Into Room 12/17/24 09:57 Procedure Start 12/17/24 10:09 Procedure End 12/17/24 10:18 Procedure Start Time: 10:09 Procedure Stop Time: 10:18 Select all DRAINS/GRAFTS/IMPLANTS that apply: None Estimated Blood Loss: 5cc Specimen collected: Yes Description of specimen(s) removed: endometrial curettings Description of surgery: Informed consent was obtained the patient was taken the operating room she was placed in supine position. She was given anesthesia. [facility] was prepped and draped in the normal sterile fashion. At this time the weighted speculum was placed in the posterior fornix of vagina. Single-tooth tenaculum was used to gently grasp the anterior lip the cervix. At this time the uterine cavity was sounded to approximately 8 cm- retroflexed. Gentle dilatation was performed once adequate dilatation of the cervix was achieved the hysteroscope using normal saline as a distention medium was placed. Tubal ostia visualized. no polyps noted, some thickened tissue on anterior aspect of uterus. sharp curettage performed. Tissue will be sent to pathology for evaluation. Tenaculum removed. Good hemostasis. Instrument, lap count correct x 2. Vaginal Sweep was negative. Surgical Findings: no polyps noted. Complications Complications: No Admit VTE Documentation VTE Present on Admission: Yes VTE Mechan Device Prophylaxis: SCD's VTE Pharm Prophylaxis ordered?: No Reason prophylaxis not ordered: Treatment Not Indicated 12/17/24 1021 Cosigner Signature (if applicable): CC: WIND UP OPERATORMaik HUIZAR. Petty Vasquez; Dr Nella Ward MD Signed Normal [facility] Potassium (Unsp spec) [Mass/ Vol]Ordered By: Jamey [facility] Phoenixelvira on 12-17-2024 Potassium [Moles/Vol] 3.8 mmol/L 3.3-5.1 [facility] Potassium measurement (mass/ volume)Ordered By: Jamey [facility] Phoenixelvira on 12-17-2024 Potassium (Unsp spec) [Mass/Vol] 3.8 mmol/L 3.3-5.1 [facility] ,Urineon 12-17-2024 Beta HCG ( test) Ql (U) Negative Normal [facility] Comment on above: Result Comment: Very dilute urine specimens, as indicated by a low specific gravity, may not contain patient account representative levels of hCG. If is still suspected, a first morning urine specimen should be collected 48 hours later and tested. Performed By: #### L 400.7600 #### [facility] Laboratory [address] [place], [address] Serum creatinine measurement (mass/volume)Ordered By: Jamey Lilly on 12-17-2024 Creatinine [Mass/Vol] 0.67 mg/dL Low 0.70-1.20 [facility] Serum glucose measurement (m ass/volume)Ordered By: Jamey Lilly on 12-17-2024 Glucose [Mass/Vol] 99 mg/dL 70-99 [facility] Serum or plasma calcium mckinley urement (mass/volume)Ordered By: Jamey Lilly on 12-17-2024 Calcium [Mass/Vol] 8.3 mg/dL 7.6-11.0 [facility] Serum or plasma urea nitroge n measurement (mass/volume)Ordered By: Jamey Lilly on 12-17-2024 Urea nitrogen [Mass/Vol] 10 mg/dL 4-19 [facility] Sodium levelOrdered By: Harshil Lilly on 12-17-2024 Sodium [Moles/Vol] 140 mmol/L 133-145 [facility] Surgery Specimen Level Sana 12-17-2024 Surgery Specimen Level IV Patient Age/Sex Location Account Attending Physician EB HUI / [facility] [id number] Dr Nella Ward, Specimen: [id number] Received: 12/17/24 Status: WALT Godoy Num: [id number] Spec Type: ENDOM BX/C Subm Dr: Dr Nella Ward MD HEADER OPERATION: Hysteroscopy, D C PRE-OP DIAGNOSIS: Abnormal uterine bleeding, endometrial polyp TISSUE SUBMITTED: A- Endometrial curettings MICROSCOPIC DIAGNOSIS A. ENDOMETRIUM, DILATION AND CURETTAGE: * SECRETORY ENDOMETRIUM. * FRAGMENTS OF ENDOCERVICAL MUCOSA WITH FOCAL SQUAMOUS METAPLASIA AND REACTIVE CHANGES. MICROSCOPIC DESCRIPTION Slides are reviewed. GROSS DESCRIPTION A. Received in formalin labeled, Eb Hui, and designated endometrial curettings and polyp, are multiple dark red-brown, irregularly-shaped, soft tissue fragments, clotted material and mucus that aggregate to 4.5 x 4.0 x 1.2 cm. Totally submitted in four cassettes.REE 12/17/2024 CPT:77866 Patient Age/Sex Location Account Attending Physician EB HUI [facility] [id number] Dr Nella Ward Signed (signature on file) Dr. Itzel Matthews MD 12/22/24 1314 Normal [facility] Comment on above: Performed By: #### P SUIV #### [facility] Laboratory [address] [place], [place] [address], [address] Urine testOrdered By: Nella Ward on 12-17-2024 HCG ( test) Ql (U) Negative [facility] Comment on above: Very dilute urine sp ecimens, as indicated by a low specificgravity, may not contain patient account representative levels of hCG. If is still suspected, a first morning urinespecimen should be collected 48 hours later and tested. CNOVon 12-16-2024 CNOV Office Visit (OBGYWM ) -- EB HUI ([id number]) 1 F Date Time Provider Department 12/16/24 1:20 PM NELLA JOHN During your visit today, we recorded the following information about you: Pulse Respiration Blood pressure Weight 76/minute 16/minute 112/68 69.1 kg Height Last Period 1.662 m 11/21/24 Nella John MD 12/16/2024 5:17 PM Signed Nella John MD 12/16/2024 5:17 PM Signed Pre-Op History and Physical HPI: The patient is a 24 year old female presenting for discussion regarding surgical intervention for AUB and Endometrial polyp found on ultrasound. pre-operative visit. She is scheduled for Hysteroscopy DANDC and possible polypectomy, for AUB, endometrial polyp on 11/22/24. Procedure discussed along with risks, benefits and complications. Other alternatives discussed for management. Consent form signed? Yes. PAST MEDICAL HISTORY Diagnosis Date Anemia during in third trimester 06/19/2019 Endometriosis Herpes 09/22/2020 Mental disorder depression/anxiety Migraine without aura 02/11/2015 PONV (postoperative nausea and vomiting) Pre-eclampsia in third trimester 07/06/2019 Recurrent UTI was to be evaluated by urology Scoliosis Tension type headache 02/11/2015 Uterine polyp PAST SURGICAL HISTORY Procedure Laterality Date TONSILLECTOMY AND ADENOIDECTOMY No current outpatient medications on file. No current facility-administered medications for this visit. ALLERGIES: Patient has no known allergies. PERSONAL HISTORY: Social History Tobacco Use Smoking status: Every Day Current packs/day: 0.25 Average packs/day: 0.3 packs/day for 4.0 years (1.0 ttl pk-yrs) Types: Cigarettes Smokeless tobacco: Never Tobacco comments: 5 cigarettes daily Vaping Use Vaping status: current everyday user Substance Use Topics Alcohol use: No Drug use: No FAMILY HISTORY: FAMILY HISTORY Problem Relation Age of Onset Diabetes Mother Heart Mother Hypertension Father Heart Father No Known Problems Brother Heart Maternal Grandmother No Known Problems Maternal Grandfather Diabetes Paternal Grandmother No Known Problems Paternal Grandfather REVIEW OF SYMPTOMS: negative except as noted above PHYSICAL EXAMINATION: VITALS: Last menstrual period 10/08/2024. GENERAL: The patient is well nourished, well hydrated in no acute distress. , The patient is oriented to time, place, and person. NECK: full range of motion LUNGS: Clear to auscultation bilaterally. no wheezes, rhonchi or rales HEART: Regular rate and rhythm, Normal heart sounds, and No murmurs or gallops IMPRESSION: 24yo with AUB and endometrial polyp PLAN: Hysteroscopy, DANDC, polypectomy with symphion Pt has been counseled on risks/benefits and alternatives of surgery including but not limited to anesthesia, bleeding, infection, injury to pelvic structures including bowel, bladder, ureters and vessels. Pt wishes to proceed with surgery at this time. I have reviewed and updated past medical and surgical history, medications and allergies Nella Hood MD Allergies As of Date: 12/16/2024 (No Known Allergies) Date Reviewed: 12/16/2024 Reviewed by: Robina Salazar LPN - Fully Assessed Reason for Visit: Consult [502] Primary Visit Diagnosis:Abnormal uterine bleeding (AUB) [N93.9] Other Visit Diagnoses:Endometrial polyp [N84.0] Pre-op exam [Z01.818] Problem List As Of Date 12/16/2024 Noted Resolved Internal derangement of right knee [M23.91] 08/05/2012 06/07/2015 Backache, unspecified [M54.9] 01/06/2014 06/26/2017 Migraine without aura [G43.009] 02/11/2015 06/26/2017 Tension type headache [G44.209] 02/11/2015 06/26/2017 Frequent UTI [N39.0] 06/26/2017 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] 02/04/2017 Endometrial polyp [N84.0] 09/05/2017 01/27/2019 Adenomyosis [N80.03] 09/05/2017 01/27/2019 Quit smoking [Z87.891] 01/06/2019 08/21/2019 History of depression [Z86.59] 01/06/2019 Nausea and vomiting in [O21.9] 01/06/2019 07/11/2019 History of recurrent UTIs [Z87.440] 01/06/2019 08/21/2019 History of scoliosis [Z87.39] 01/06/2019 Family history of congenital heart defect [Z82.*01/06/2019 08/21/2019 BV (bacterial vaginosis) [N76.0, B96.89] 01/27/2019 07/11/2019 Anemia during in third trimester [O99*06/19/2019 08/21/2019 Pre-eclampsia in third trimester [O14.93] 07/06/2019 08/21/2019 Severe preeclampsia, third trimester [O14.13] 07/08/2019 08/21/2019 Encounter for induction of labor [Z34.90] 07/08/2019 08/21/2019 Prematurity [P07.30] 07/08/2019 08/21/2019 Scoliosis [M41.9] 07/08/2019 History of MRSA infection [Z86.14] 07/08/2019 Pneumonia affecting [O99.519, J18.9] 07/08/2019 08/21/2019 PICC (peripherally inserted central catheter) i*07/08/2019 08/21/2019 Herpes [B00.9] 09/22/2020 12/19/2020 Oropharyngeal (more content not included)... Normal [facility] H AND P Exam - OB/GYN - H&P Exam - ADVERTISING SPECIALIST [facility] Medical Records Department [address] [place] [address] H P Exam - ADVERTISING SPECIALIST 12/16/24 1716 MR#: [id number] Acct: [id number] Name: EB HUI Rep #: [id number] : 2000 24 From: Nella Ward MD PCP: JEIMY Abrams Status:[facility] Location: [place] [address] History and Physical Date of Admission: 12/17/24 Pre-Op History and Physical HPI: The patient is a 24 year old female presenting for discussion regarding surgical intervention for AUB and Endometrial polyp found on ultrasound. pre-operative visit. She is scheduled for Hysteroscopy D C and possible polypectomy, for AUB, endometrial polyp on 11/22/24. Procedure discussed along with risks, benefits and complications. Other alternatives discussed for management. Consent form signed? Yes. PAST MEDICAL HISTORY Diagnosis Date ??? Anemia during in third trimester 06/19/2019 ??? Endometriosis ??? Herpes 09/22/2020 ??? Mental disorder depression/anxiety ??? Migraine without aura 02/11/2015 ??? PONV (postoperative nausea and vomiting) ??? Pre-eclampsia in third trimester 07/06/2019 ??? Recurrent UTI was to be evaluated by urology ??? Scoliosis ??? Tension type headache 02/11/2015 ??? Uterine polyp PAST SURGICAL HISTORY Procedure Laterality Date ??? TONSILLECTOMY ADENOIDECTOMY No current outpatient medications on file. No current facility-administered medications for this visit. ALLERGIES: Patient has no known allergies. PERSONAL HISTORY: Social History Tobacco Use ??? Smoking status: Every Day Current packs/day: 0.25 Average packs/day: 0.3 packs/day for 4.0 years (1.0 ttl pk-yrs) Types: Cigarettes ??? Smokeless tobacco: Never ??? Tobacco comments: 5 cigarettes daily Vaping Use ??? Vaping status: current everyday user Substance Use Topics ??? Alcohol use: No ??? Drug use: No FAMILY HISTORY: FAMILY HISTORY Problem Relation Age of Onset ??? Diabetes Mother ??? Heart Mother ??? Hypertension Father ??? Heart Father ??? No Known Problems Brother ??? Heart Maternal Grandmother ??? No Known Problems Maternal Grandfather ??? Diabetes Paternal Grandmother ??? No Known Problems Paternal Grandfather REVIEW OF SYMPTOMS: negative except as noted above PHYSICAL EXAMINATION: VITALS: Last menstrual period 10/08/2024. GENERAL: The patient is well nourished, well hydrated in no acute distress. , The patient is oriented to time, place, and person. NECK: full range of motion LUNGS: Clear to auscultation bilaterally. no wheezes, rhonchi or rales HEART: Regular rate and rhythm, Normal heart sounds, and No murmurs or gallops IMPRESSION: 24yo with AUB and endometrial polyp PLAN: Hysteroscopy, D C, polypectomy with symphion Pt has been counseled on risks/benefits and alternatives of surgery including but not limited to anesthesia, bleeding, infection, injury to pelvic structures including bowel, bladder, ureters and vessels. Pt wishes to proceed with surgery at this time. I have reviewed and updated past medical and surgical history, medications and allergies Nella Hood MD 12/16/24 [id number] Cosigner Signature (if applicable): CC: WIND UP OPERATORNatalieC NP. Petty Vasquez; Dr Nella Ward MD Signed ADDENDUM by Dr Nella Ward, MD on 12/17/24 at 0839 Addendum I have examined the patient and the H P has been reviewed. There are no clinical changes since date of exam. 12/17/24 0839 Cosigner Signature (if applicable): cc: WIND UP OPERATORNatalieC WIND UP OPERATOR. Petty Vasquez; Dr Nella Ward MD * Signed Normal [facility] HISTORY PHYSICALon HISTORY PHYSICAL HNO ID: [id number] Author: NELLA JOHN MD Service: ? Author Type: Physician Type: H&P Filed: 12/16/2024 17:17 Note Text: Pre-Op History and Physical HPI: The patient is a 24 year old female presenting for discussion regarding surgical intervention for AUB and Endometrial polyp found on ultrasound. pre-operative visit. She is scheduled for Hysteroscopy DANDC and possible polypectomy, for AUB, endometrial polyp on 11/22/24. Procedure discussed along with risks, benefits and complications. Other alternatives discussed for management. Consent form signed? Yes. PAST MEDICAL HISTORY Diagnosis Date Anemia during in third trimester 06/19/2019 Endometriosis Herpes 09/22/2020 Mental disorder depression/anxiety Migraine without aura 02/11/2015 PONV (postoperative nausea and vomiting) Pre-eclampsia in third trimester 07/06/2019 Recurrent UTI was to be evaluated by urology Scoliosis Tension type headache 02/11/2015 Uterine polyp PAST SURGICAL HISTORY Procedure Laterality Date TONSILLECTOMY AND ADENOIDECTOMY No current outpatient medications on file. No current facility-administered medications for this visit. ALLERGIES: Patient has no known allergies. PERSONAL HISTORY: Social History Tobacco Use Smoking status: Every Day Current packs/day: 0.25 Average packs/day: 0.3 packs/day for 4.0 years (1.0 ttl pk-yrs) Types: Cigarettes Smokeless tobacco: Never Tobacco comments: 5 cigarettes daily Vaping Use Vaping status: current everyday user Substance Use Topics Alcohol use: No Drug use: No FAMILY HISTORY: FAMILY HISTORY Problem Relation Age of Onset Diabetes Mother Heart Mother Hypertension Father Heart Father No Known Problems Brother Heart Maternal Grandmother No Known Problems Maternal Grandfather Diabetes Paternal Grandmother No Known Problems Paternal Grandfather REVIEW OF SYMPTOMS: negative except as noted above PHYSICAL EXAMINATION: VITALS: Last menstrual period 10/08/2024. GENERAL: The patient is well nourished, well hydrated in no acute distress. , The patient is oriented to time, place, and person. NECK: full range of motion LUNGS: Clear to auscultation bilaterally. no wheezes, rhonchi or rales HEART: Regular rate and rhythm, Normal heart sounds, and No murmurs or gallops IMPRESSION: 24yo with AUB and endometrial polyp PLAN: Hysteroscopy, DANDC, polypectomy with symphion Pt has been counseled on risks/benefits and alternatives of surgery including but not limited to anesthesia, bleeding, infection, injury to pelvic structures including bowel, bladder, ureters and vessels. Pt wishes to proceed with surgery at this time. I have reviewed and updated past medical and surgical history, medications and allergies Nella Hood MD [facility] 10-30-2024 CNPN Telephone (OBGYWM) -- EB HUI ([id number]) 1 F Date Time Provider Department 10/30/24 PETTY RUBALCAVA During your visit today, we recorded the following information about you: Jolanta Day RN 10/30/2024 2:26 PM Signed Patient calling because she saw pelvic u/s results on [facility] and is concerned. Her f/u appt is not until 11/17. Aware SAM back in the office 11/02. PATIENCE Julio Jessica, APRN.CNM 11/02/2024 9:04 AM Signed Please notify patient this is likely a benign lesion but we would like to evaluate. She can have an in office endosee to see if present or we can have a physician complete a hysteroscopy with DEANNA if needed. If she would like sooner follow up with me we can do virtual visit in any slot. ELOISA Marie Jennifer RN 11/02/2024 10:02 AM Signed Patient notified. Moved up her VV to discuss options further. Angelina Gloria RN Allergies As of Date: 10/30/2024 (No Known Allergies) Date Reviewed: 10/26/2024 Reviewed by: Gillian Flores MA - Fully Assessed Reason for Visit: Results [95] Prescriptions as of 11/02/2024 - doxycycline monohydrate (MONODOX) 100 mg capsule Take 1 capsule by mouth two times a day for 7 days. - amphetamine-dextroamphetam ine XR (ADDERALL XR) 10 mg capsule Take 1 capsule by mouth every afternoon. 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] 02/04/2017 Endometrial polyp [N84.0] 09/05/2017 01/27/2019 Adenomyosis [N80.03] 09/05/2017 01/27/2019 Quit smoking [Z87.891] 01/06/2019 08/21/2019 History of depression [Z86.59] 01/06/2019 Nausea and vomiting in [O21.9] 01/06/2019 07/11/2019 History of recurrent UTIs [Z87.440] 01/06/2019 08/21/2019 History of scoliosis [Z87.39] 01/06/2019 Family history of congenital heart defect [Z82.*01/06/2019 08/21/2019 BV (bacterial vaginosis) [N76.0, B96.89] 01/27/2019 07/11/2019 Anemia during in third trimester [O99*06/19/2019 08/21/2019 Pre-eclampsia in third trimester [O14.93] 07/06/2019 08/21/2019 Severe preeclampsia, third trimester [O14.13] 07/08/2019 08/21/2019 Encounter for induction of labor [Z34.90] 07/08/2019 08/21/2019 Prematurity [P07.30] 07/08/2019 08/21/2019 Scoliosis [M41.9] 07/08/2019 History of MRSA infection [Z86.14] 07/08/2019 Pneumonia affecting [O99.519, J18.9] 07/08/2019 08/21/2019 PICC (peripherally inserted central catheter) i*07/08/2019 08/21/2019 Herpes [B00.9] 09/22/2020 12/19/2020 Oropharyngeal lesion [J39.2] 10/18/2022 Smoker [F17.200] 01/03/2023 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 Findings are suggestive of arcuate uterus. The uterus is retroflexed and measures 85 mm x 55 mm x 71 mm. The endometrial thickness is 9.9 mm. There is a left lateral posterior wall echogenic area in the endometrial cavity with vascular flow that is suggestive of a polyp that measures 11 mm x 8 mm x 4 mm. The right ovary measures 38 mm x 22 mm x 14 mm. The left ovary measures 28 mm x 24 mm x 15 mm and contains a hemorrhagic corpus luteum cyst. There is trace amount of free fluid visualized. Recommendations Consider hysteroscopic evaluation and management of intracavitary lesion if clinically indicated. Arcuate uterus. Menstrual History LMP on 10/04/2024. Cycle: irregular cycle. Contraception: none Method Transabdominal, transvaginal, 3D ultrasound examination, Color Doppler examination. View: Adequate visualization Uterus Uterus: Visualized Uterus position: retroflexed Description of uterine malformations: arcuate Myometrium: normal Endometrium: possible polyp noted Cervix details: cystic lesions identified suggesting superficial Nabothian cysts Uterus length 85 mm Uterus width 71 mm Uterus height 55 mm Uterus Vol 173.9 cm Endometrial thickness, total 9.9 mm Fibroids: No fibroids identified Polyps: Polyps identified Uterine polyp D1 11 mm Uterine polyp D2 8 mm Uterine polyp D3 4 mm Uterine polyp mean 7.7 mm Doppler: vascular flow visualized Uterine polyp findings: Left lateral posterior wall Right Ovary Rt ovary: Visualized Rt ovary D1 38 mm Rt ovary D2 22 mm Rt ovary D3 14 mm Rt ovary Vol 6.1 cm Rt ovarian corpus luteum: cystic with fine diffuse internal echoes Rt ovarian corpus luteum D1 19.0 mm Rt ovarian corpus luteum D2 15.7 mm Rt ovarian corpus luteum D3 17.3 mm Left Ovary Lt ovary: Visualized Lt ovary morphology: premenopausal normal follicular Lt ovary D1 28 mm Lt ovary D2 24 mm Lt ovary D3 15 mm Lt ovary Vol 5.4 cm Lt ovarian cyst(s): No cysts identified Cul de Sac Visualized. free fluid visualized: trace Procedure To characterize the arcuate uterus and endometrial polyp, three dimensional imaging was created on a dedicated stand-alone 3D workstation with images created and archived, and supervised and reviewed by the interpreting physician utilizing images from an ultrasound scan performed today. Performed By: Angy Liang RDMS Read By: Jeanie Reynolds M.D. MATERNAL MEDICINE [facility] Radiology Study observation (narrative) [facility] 10-27-2024 [facility] Telephone ([facility]) -- EB HUI ([id number]) 1 F Date Time Provider Department 10/27/24 YORDAN SMALLS [facility] During your visit today, we recorded the following information about you: Yordan Smalls APRN.[facility] 10/27/2024 8:41 AM Signed I called Patient let her know positive chlamydia. Doxycycline was called in. Let her know about negative gonorrhea. Allergies As of Date: 10/27/2024 (No Known Allergies) Date Reviewed: 10/26/2024 Reviewed by: Gillian Flores MA - Fully Assessed Reason for Visit: Results [95] Order(s):doxycycline monohydrate (MONODOX) 100 mg capsuleTake 1 capsule by mouth two times a day for 7 days.Disp: 14 capsuleRfl: 0 Prescriptions as of 10/27/2024 - doxycycline monohydrate (MONODOX) 100 mg capsule Take 1 capsule by mouth two times a day for 7 days. - amphetamine-dextroamphetam ine XR (ADDERALL XR) 10 mg capsule Take 1 capsule by mouth every afternoon. 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] 02/04/2017 Endometrial polyp [N84.0] 09/05/2017 01/27/2019 Adenomyosis [N80.03] 09/05/2017 01/27/2019 Quit smoking [Z87.891] 01/06/2019 08/21/2019 History of depression [Z86.59] 01/06/2019 Nausea and vomiting in [O21.9] 01/06/2019 07/11/2019 History of recurrent UTIs [Z87.440] 01/06/2019 08/21/2019 History of scoliosis [Z87.39] 01/06/2019 Family history of congenital heart defect [Z82.*01/06/2019 08/21/2019 BV (bacterial vaginosis) [N76.0, B96.89] 01/27/2019 07/11/2019 Anemia during in third trimester [O99*06/19/2019 08/21/2019 Pre-eclampsia in third trimester [O14.93] 07/06/2019 08/21/2019 Severe preeclampsia, third trimester [O14.13] 07/08/2019 08/21/2019 Encounter for induction of labor [Z34.90] 07/08/2019 08/21/2019 Prematurity [P07.30] 07/08/2019 08/21/2019 Scoliosis [M41.9] 07/08/2019 History of MRSA infection [Z86.14] 07/08/2019 Pneumonia affecting [O99.519, J18.9] 07/08/2019 08/21/2019 PICC (peripherally inserted central catheter) i*07/08/2019 08/21/2019 Herpes [B00.9] 09/22/2020 12/19/2020 Oropharyngeal lesion [J39.2] 10/18/2022 Smoker [F17.200] 01/03/2023 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 Encounter Status:Closed by YORDAN SMALLS on 10/27/24 Normal [facility] BACTERIAL VAGINOSIS NAATon 0 10-26-2024 Lactobacillus crispatus+gasseri+je nsenii + Gardnerella vaginalis + Atopobium vaginae rRNA SOL+probe Ql (Vag fld) Not detected Normal Not detected [facility] Comment on above: Order Comment: Speci men Type: SWABOrdering Facility: [facility] Address: [address] [place] [address] Performed By: #### C VTV, BVAMP ####[facility] LABCLIA [id number] [place] [address] [place] Bacteria Ur Culton 5 Bacteria identified Cx Nom (U) ORGANISM ID: 1 10,000 -<50,000 CFU/ml Normal urogenital ziggy Normal [facility] Comment on above: Performed By: #### 6 30-4 ####[facility] LABCLIA [id number] [place] [address] [place] C. trachomatis+N. gonorrhoea e DNA SOL+probe Ql (Unsp spec)on 10-26-2024 C. trachomatis rRNA SOL+probe Ql (Unsp spec) Detected Abnormal Not detected [facility] Comment on above: Order Comment: Speci men Type: SWABOrdering Facility: [facility] Address: [address] [place] [address] Performed By: #### 3 6902-5 ####[facility] LABIA [id number] [place] [address] [place] N. gonorrhoeae rRNA SOL+probe Ql (Unsp spec) Not detected Normal Not detected [facility] Comment on above: Order Comment: Speci men Type: SWABOrdering Facility: [facility] Address: [address] [place] [address] Performed By: #### 3 6902-5 ####[facility] [id number] [place] [address] [place] RANCHO/TRICHOMONAS NAATon 0 10-26-2024 C. glabrata RNA SOL+probe Ql (Vag fld) Not detected Normal Not detected [facility] Comment on above: Order Comment: Speci men Type: SWABOrdering Facility: [facility] Address: [address] [place] [address] Performed By: #### C VTV, BVAMP ####[facility] [id number] [place] [address] [place] Rancho sp DNA SOL+probe Ql (Vag fld) Not detected Normal Not detected [facility] Comment on above: Order Comment: Speci men Type: SWABOrdering Facility: [facility] Address: [address] [place] [address] Result Comment: The Rancho species group target includes C. albicans, C. tropicalis, C. parapsilosis, and C. dubliniensis. Performed By: #### C VTV, BVAMP ####[facility] LABCLIA [id number] [address] [place] [facility] T. vaginalis DNA SOL+probe Ql (Unsp spec) Not detected Normal Not detected [facility] Comment on above: Order Comment: Speci men Type: SWABOrdering Facility: [facility] Address: [address] [place] [address] Performed By: #### C VTV, BVAMP ####[facility] LABCLIA [id number] [place] [address] [place] CBC W Auto Differential pane l (Bld)on 10-26-2024 Basophils (Bld) [#/Vol] [facility] Basophils/100 WBC (Bld) 0.4 % [facility] Differential cell count method Nom (Bld) Auto [facility] Eosinophils (Bld) [#/Vol] 0.04 10*3/uL [facility] Eosinophils/100 WBC (Bld) 0.8 % [facility] Erythrocyte distribution width (RBC) [Ratio] 12.3 % 11.5 - 15.0 % [facility] Hematocrit (Bld) [Volume fraction] 40.4 % 36.0 - 46.0 % [facility] Hemoglobin (Bld) [Mass/Vol] 13.8 g/dL 11.5 - 15.5 g/dL [facility] Immature granulocytes (Bld) [#/Vol] [facility] Immature granulocytes/100 WBC (Bld) 0.2 % [facility] Lymphocytes (Bld) [#/Vol] 1.87 10*3/uL [facility] Lymphocytes/100 WBC (Bld) 35.4 % [facility] MCH (RBC) [Entitic mass] 30.8 pg 26.0 - 34.0 pg [facility] MCHC (RBC) [Mass/Vol] 34.2 g/dL 30.5 - 36.0 g/dL [facility] MCV (RBC) [Entitic vol] 90.2 fL 80.0 - 100.0 fL [facility] Monocytes (Bld) [#/Vol] 0.44 10*3/uL [facility] Monocytes/100 WBC (Bld) 8.3 % [facility] Neutrophils (Bld) [#/Vol] 2.90 10*3/uL [facility] Neutrophils/100 WBC (Bld) 54.9 % [facility] Nucleated RBC (Bld) [#/Vol] NINF [facility] Nucleated RBC/100 WBC (Bld) [Ratio] 0.0 % /100 WBC [facility] Platelet mean volume (Bld) [Entitic vol] 9.4 fL 9.0 - 12.7 fL [facility] Platelets (Bld) [#/Vol] 211 10*3/uL [facility] RBC (Bld) [#/Vol] 4.48 10*6/uL 3.90 - 5.2 0 m/uL [facility] WBC (Bld) [#/Vol] 5.28 10*3/uL [facility] Basophils (Bld) [#/Vol] 10*3/uL Normal <0.11 [facility] Comment on above: Order Comment: Speci men Type: BLOOD SPECIMENOrdering Facility: [facility] Address: [address] [place] [address] Performed By: #### 5 7021-8 ####[facility] [id number] [address] [place] [facility] Basophils/100 WBC (Bld) 0.4 % Normal [facility] Comment on above: Order Comment: Speci men Type: BLOOD SPECIMENOrdering Facility: [facility] Address: [address] [place] [address] Performed By: #### 5 7021-8 ####[facility] POINTNCLIA [id number] [place] [address] [place] Differential cell count method Nom (Bld) Auto Normal [facility] Comment on above: Order Comment: Speci men Type: BLOOD SPECIMENOrdering Facility: [facility] Address: [address] [place] [address] Performed By: #### 5 7021-8 ####[facility]ENTER[facility]IA [id number] [place] [address] [place] Eosinophils (Bld) [#/Vol] 0.04 10*3/uL Normal <0.46 [facility] Comment on above: Order Comment: Speci men Type: BLOOD SPECIMENOrdering Facility: [facility] Address: [address] [place] [address] Performed By: #### 5 7021-8 ####[facility] [id number] [place] [address] [place] Eosinophils/100 WBC (Bld) 0.8 % Normal [facility] Comment on above: Order Comment: Speci men Type: BLOOD SPECIMENOrdering Facility: [facility] Address: [address] [place] [address] Performed By: #### 5 7021-8 ####[facility] POINTNCAraceli [id number] [place] [address] [place] Erythrocyte distribution width (RBC) [Ratio] 12.3 % Normal 11.5-15.0 [facility] Comment on above: Order Comment: Speci men Type: BLOOD SPECIMENOrdering Facility: [facility] Address: [address] [place] [address] Performed By: #### 5 7021-8 ####[facility] POINTNCLIAraceli [id number] [place] [address] [place] Hematocrit (Bld) [Volume fraction] 40.4 % Normal 36.0-46.0 [facility] Comment on above: Order Comment: Speci men Type: BLOOD SPECIMENOrdering Facility: [facility] Address: [address] [place] [address] Performed By: #### 5 7021-8 ####[facility]NCL[facility] [id number] [place] [address] [place] Hemoglobin (Bld) [Mass/Vol] 13.8 g/dL Normal 11.5-15.5 [facility] Comment on above: Order Comment: Speci men Type: BLOOD SPECIMENOrdering Facility: [facility] Address: [address] [place] [address] Performed By: #### 5 7021-8 ####[facility] [id number] [place] [address] [place] Immature granulocytes (Bld) [#/Vol] 10*3/uL Normal <0.10 [facility] Comment on above: Order Comment: Speci men Type: BLOOD SPECIMENOrdering Facility: [facility] Address: [address] [place] [address] Performed By: #### 5 7021-8 ####[facility] [id number] [place] [address] [place] Immature granulocytes/100 WBC (Bld) 0.2 % Normal [facility] Comment on above: Order Comment: Speci men Type: BLOOD SPECIMENOrdering Facility: [facility] Address: [address] [place] [address] Performed By: #### 5 7021-8 ####[facility] [id number] [place] [address] [place] Lymphocytes (Bld) [#/Vol] 1.87 10*3/uL Normal 1.00-4.00 [facility] Comment on above: Order Comment: Speci men Type: BLOOD SPECIMENOrdering Facility: [facility] Address: [address] [place] [address] Performed By: #### 5 7021-8 ####[facility] [id number] [place] [address] [place] Lymphocytes/100 WBC (Bld) 35.4 % Normal [facility] Comment on above: Order Comment: Speci men Type: BLOOD SPECIMENOrdering Facility: [facility] Address: [address] [place] [address] Performed By: #### 5 7021-8 ####[facility] MILLWNCLIA [id number] [address] STATES [facility] MCH (RBC) [Entitic mass] 30.8 pg Normal 26.0-34.0 [facility] Comment on above: Order Comment: Speci men Type: BLOOD SPECIMENOrdering Facility: [facility] Address: [address] [place] [address] Performed By: #### 5 7021-8 ####[facility] [id number] [place] [address] [place] MCHC (RBC) [Mass/Vol] 34.2 g/dL Normal 30.5-36.0 [facility] Comment on above: Order Comment: Speci men Type: BLOOD SPECIMENOrdering Facility: [facility] Address: [address] [place] [address] Performed By: #### 5 7021-8 ####[facility] [id number] [place] [address] [place] MCV (RBC) [Entitic vol] 90.2 fL Normal 80.0-100.0 [facility] Comment on above: Order Comment: Speci men Type: BLOOD SPECIMENOrdering Facility: [facility] Address: [address] [place] [address] Performed By: #### 5 7021-8 ####[facility] [id number] [place] [address] [place] Monocytes (Bld) [#/Vol] 0.44 10*3/uL Normal <0.87 [facility] Comment on above: Order Comment: Speci men Type: BLOOD SPECIMENOrdering Facility: [facility] Address: [address] [place] [address] Performed By: #### 5 7021-8 ####[facility] [id number] [place] [address] [place] Monocytes/100 WBC (Bld) 8.3 % Normal [facility] Comment on above: Order Comment: Speci men Type: BLOOD SPECIMENOrdering Facility: [facility] Address: [address] [place] [address] Performed By: #### 5 7021-8 ####[facility] [id number] [place] [address] [place] Neutrophils (Bld) [#/Vol] 2.90 10*3/uL Normal 1.45-7.50 [facility] Comment on above: Order Comment: Speci men Type: BLOOD SPECIMENOrdering Facility: [facility] Address: [address] [place] [address] Performed By: #### 5 7021-8 ####[facility] [id number] [place] [address] [place] Neutrophils/100 WBC (Bld) 54.9 % Normal [facility] Comment on above: Order Comment: Speci men Type: BLOOD SPECIMENOrdering Facility: [facility] Address: [address] [place] [address] Performed By: #### 5 7021-8 ####[facility] [id number] [place] [address] [place] Nucleated RBC (Bld) [#/Vol] 10*3/uL Normal <0.01 [facility] Comment on above: Order Comment: Speci men Type: BLOOD SPECIMENOrdering Facility: [facility] Address: [address] [place] [address] Performed By: #### 5 7021-8 ####[facility] [id number] [place] [address] [place] Nucleated RBC/100 WBC (Bld) [Ratio] 0.0 /100 WBC Normal [facility] Comment on above: Order Comment: Speci men Type: BLOOD SPECIMENOrdering Facility: [facility] Address: [address] [place] [address] Performed By: #### 5 7021-8 ####[facility] LEEANNE AURELIANONCYI [id number] [place] [address] [place] Platelet mean volume (Bld) [Entitic vol] 9.4 fL Normal 9.0-12.7 [facility] Comment on above: Order Comment: Speci men Type: BLOOD SPECIMENOrdering Facility: [facility] Address: [address] [place] [address] Performed By: #### 5 7021-8 ####[facility] [id number] [place] [address] [place] Platelets (Bld) [#/Vol] 211 10*3/uL Normal 150-400 [facility] Comment on above: Order Comment: Speci men Type: BLOOD SPECIMENOrdering Facility: [facility] Address: [address] [place] [address] Performed By: #### 5 7021-8 ####[facility] [id number] [place] [address] [place] RBC (Bld) [#/Vol] 4.48 10*6/uL Normal 3.90-5.20 [facility] Comment on above: Order Comment: Speci men Type: BLOOD SPECIMENOrdering Facility: [facility] Address: [address] [place] [address] Performed By: #### 5 7021-8 ####[facility] [id number] [place] [address] [place] WBC (Bld) [#/Vol] 5.28 10*3/uL Normal 3.70-11.00 [facility] Comment on above: Order Comment: Speci men Type: BLOOD SPECIMENOrdering Facility: [facility] Address: [facility] [place] [address] Performed By: #### 5 7021-8 ####[facility] LEEANNE LIU [id number] [place] [id number] [place] CNOVon 10-26-2024 CNOV Office Visit (UCWSTR ) -- HUI,EB Parker ([id number]) 1 F Date Time Provider Department 10/26/24 2:45 PM YORDAN SMALLS [facility] During your visit today, we recorded the following information about you: Temperature Pulse Respiration Blood pressure 98.2 degrees 60/minute 16/minute 122/72 Weight 71.1 kg Yordan Smalls APRN.FINAL TOUCH UP PAINTER 10/26/2024 3:28 PM Signed CC: Patient presents with: Urinary Frequency: burning with urination x 4 days HPI Ebsosa Hui is a 24 year old female who presents with complaint of possible UTI. These symptoms have been present for 4 days. Associated symptoms: urgency, frequency, and pressure Denies: fever, chills, sweats, abdominal pain, and flank pain Treatments: nothing The ROS was otherwise negative. PMH, Medications, labs, allergies, and recent past visits with PCP were reviewed and updated as able. PHYSICAL EXAM: BP 122/72 Pulse 60 Temp 36.8 ?C (98.2 ?F) Resp 16 Wt 71.1 kg (156 lb 12 oz) LMP 10/08/2024 SpO2 98% BMI 24.55 kg/m? General: Well appearing and alert CV: Regular rate and rhythm without obvious murmur Lungs: clear to auscultation bilaterally Back: straight and symmetric Abdomen: soft, nontender, nondistended PAST MEDICAL HISTORY Diagnosis Date Anemia during in third trimester 06/19/2019 Endometriosis Herpes 09/22/2020 Mental disorder depression/anxiety Migraine without aura 02/11/2015 PONV (postoperative nausea and vomiting) Pre-eclampsia in third trimester 07/06/2019 Recurrent UTI was to be evaluated by urology Scoliosis Tension type headache 02/11/2015 Uterine polyp PAST SURGICAL HISTORY Procedure Laterality Date TONSILLECTOMY AND ADENOIDECTOMY ALLERGIES Patient has no known allergies. MEDICATIONS amphetamine-dextroamphetam ine XR (ADDERALL XR) 10 mg capsule Take 1 capsule by mouth every afternoon. (Patient not taking: Reported on 10/26/2024) ALPRAZolam (XANAX) 0.5 mg tablet (Patient not taking: Reported on 10/26/2024) FAMILY HISTORY Problem Relation Age of Onset Diabetes Mother Heart Mother Hypertension Father Heart Father No Known Problems Brother Heart Maternal Grandmother No Known Problems Maternal Grandfather Diabetes Paternal Grandmother No Known Problems Paternal Grandfather Social History Tobacco Use Smoking status: Every Day Current packs/day: 0.25 Average packs/day: 0.3 packs/day for 4.0 years (1.0 ttl pk-yrs) Types: Cigarettes Smokeless tobacco: Never Tobacco comments: 5 cigarettes daily Substance Use Topics Alcohol use: No Drug use: No ASSESSMENT/PLAN: 1. Urinary frequency - ICD9: 788.41, ICD10: R35.0 (primary diagnosis) - UA DIP, URINE (POC) - BACTERIAL CULTURE, URINE 2. Unprotected sex - ICD9: V69.2, ICD10: Z72.51 - GONORRHEA/CHLAMYDIA NAAT Self swab Other swabs ordered with director veterinary If anything is positive please treat.. Potential red flag symptoms discussed with the patient. Reviewed appropriate action plan to take if red flag symptoms occur. Patient agreeable to treatment plan. Yordan Smalls APRN.FINAL TOUCH UP PAINTER Allergies As of Date: 10/26/2024 (No Known Allergies) Date Reviewed: 10/26/2024 Reviewed by: Gillian Flores MA - Fully Assessed Reason for Visit: Urinary Frequency [1086] Cmt: burning with urination x 4 days Primary Visit Diagnosis:Urinary frequency [R35.0] Other Visit Diagnosis:Unprotected sex [Z72.51] Order(s):UA DIP, URINE (POC) [6064079] Order #: [id number]. #:[id number] 1-LAB BACTERIAL CULTURE, URINE [SQURCUL] Order #: [id number]. #:[id number] GONORRHEA/CHLAMYDIA NAAT [SQGCCT] Order #: [id number]. #:[id number] Prescriptions as of 10/26/2024 - amphetamine-dextroamphetam ine XR (ADDERALL XR) 10 mg capsule Take 1 capsule by mouth every afternoon. - ALPRAZolam (XANAX) 0.5 mg tablet Problem List As Of Date 10/26/2024 Noted Resolved Internal derangement of right knee [M23.91] 08/05/2012 06/07/2015 Backache, unspecified [M54.9] 01/06/2014 06/26/2017 Migraine without aura [G43.009] 02/11/2015 06/26/2017 Tension type headache [G44.209] 02/11/2015 06/26/2017 Frequent UTI [N39.0] 06/26/2017 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] 02/04/2017 Endometrial polyp [N84.0] 09/05/2017 01/27/2019 Adenomyosis [N80.03] 09/05/2017 01/27/2019 Quit smoking [Z87.891] 01/06/2019 08/21/2019 History of depression [Z86.59] 01/06/2019 Nausea and vomiting in [O21.9] 01/06/2019 07/11/2019 History of recurrent UTIs [Z87.440] 01/06/2019 08/21/2019 History of scoliosis [Z87.39] 01/06/2019 Family history of congenital heart defect [Z82.*01/06/2019 08/21/2019 BV (bacterial vaginosis) [N76.0, B96.89] 01/27/2019 07/11/2019 Anemia during in third trimester [O99*06/19/2019 08/21/2019 Pre-eclampsia in third trimester [O14.93] 07/06/2019 08/21/2019 Severe preeclampsia, third trimester [O14.13] 07/08/2019 (more content not included)... Normal [facility] CNOV Office Visit (OBGYWM ) -- EB HUI ([id number]) 1 F Date Time Provider Department 10/26/24 8:15 AM PETTY RUBALCAVA OBWYessenia During your visit today, we recorded the following information about you: Blood pressure Weight Height Last Period 112/70 70.3 kg 1.702 m 10/08/24 Petty Rubalcava APRN.CNM 10/26/2024 12:38 PM Signed Eb is a 24 year old who presents for an annual gynecologic exam with complaints, heavy and irregular bleeding. AUB bleeding every 20-30 days, 4 days of bleeding and filling a pad every hour for the first 2 days. Denies pain or bleeding at any other time. 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: 10/08/2024, Having periods Age at Menarche: 12 Age at First : Age at Menopause: Construction Tech History Comments: Sexual Activity: Yes; Male Contraception: Condom Menstrual Tracking History Flowsheet Row Office Visit from 10/26/2024 in OB/Gynecology Period Cycle (Days) 4 Period Duration (Days) 4 Menstrual Flow Heavy PAST MEDICAL HISTORY Diagnosis Date Anemia during in third trimester 06/19/2019 Endometriosis Herpes 09/22/2020 Mental disorder depression/anxiety Migraine without aura 02/11/2015 PONV (postoperative nausea and vomiting) Pre-eclampsia in third trimester 07/06/2019 Recurrent UTI was to be evaluated by urology Scoliosis Tension type headache 02/11/2015 Uterine polyp PAST SURGICAL HISTORY Procedure Laterality Date TONSILLECTOMY AND ADENOIDECTOMY FAMILY HISTORY Problem Relation Age of Onset Diabetes Mother Heart Mother Hypertension Father Heart Father No Known Problems Brother Heart Maternal Grandmother No Known Problems Maternal Grandfather Diabetes Paternal Grandmother No Known Problems Paternal Grandfather SOCIAL HISTORY Social History Tobacco Use Smoking status: Every Day Current packs/day: 0.25 Average packs/day: 0.3 packs/day for 4.0 years (1.0 ttl pk-yrs) Types: Cigarettes Smokeless tobacco: Never Tobacco comments: 5 cigarettes daily Substance Use Topics Alcohol use: No Drug use: No REVIEW OF SYSTEMS Abdomen: No abdominal pain, nausea, vomiting, diarrhea, or constipation. No bloating, early satiety, indigestion, or increased flatulence. Bladder: No dysuria, gross hematuria, urinary frequency, urinary urgency, or incontinence. Breast: No breast lumps, nipple d/c, overlying skin changes, redness or skin retraction. Allergies and current medication updated:Yes SENSITIVE EXAM: The sensitive examination was discussed with the Patient or Patient's Authorized Division Order Technician. As applicable, any other physician, advance practice provider, medical student, or other health professional student that will be observing or involved in the sensitive examination for educational or training purposes was discussed with the Patient or Authorized Division Order Technician. The Patient or Authorized Division Order Technician has agreed to proceed with the sensitive examination. (Sensitive examination includes inspection and/or palpation of the breasts, pelvis, prostate and anorectal regions). EXAM: BP 112/70 Ht 5' 7 (1.70m) Wt 155 lb (70.3kg) LMP 10/08/2024 BMI 24.27 kg/(m2). GENERAL: pleasant, female in no apparent distress HEENT: Normocephalic, atraumatic, mucus membranes moist, and no lesions NECK: Supple, full range of motion, no adenopathy, and thyroid normal DERMATOLOGY: Normal, without lesions, non-icteric, and non-hirsute BREAST: soft, non-tender, symmetric, no dominant mass, normal nipple-areolar complex, no lymphadenopathy, and no nipple discharge CHEST: Normal inspiratory effort ABDOMEN: soft, non-tender, and no masses PELVIC: external genitalia normal, normal Bartholin's glands, urethra, [place]'s glands, no vulvar lesions, no cervical lesions, good vaginal support, physiologic discharge present, normal appearing perineal body and perianal region BIMANUAL: uterus normal size, shape and consistency, no adnexal masses, and non-tender RECTOVAGINAL: deferred. NEURO: alert and oriented x3,exam grossly non-focal EXTREMITIES: normal ASSESSMENT/PLAN: 1. Encounter for gynecological examination (general) (routine) with abnormal findings - ICD9: V72.31, ICD10: Z01.411 (primary diagnosis) - Completed pelvic and breast exam - Encouraged monthly BSE - Follow up for (more content not included)... Normal [facility] DHEA-S BLDon 10-26-2024 DHEA-S [Mass/Vol] 264.1 ug/dL Normal 148.0-407.0 [facility] Comment on above: Order Comment: Speci men Type: BLOOD SPECIMENOrdering Facility: [facility] Address: [address] [place] [address] Result Comment: Refe rence ranges are age and gender specific. For additional information, reference range tables can be found in the laboratory test directory. The normal values are based on the following source: Dehydroepiandrosterone sulfate (DHEA S) [package insert V 17.0 [place]ian]. [facility], [place], [place]: April 2013. Performed By: #### 2 842-3, 3016-3, DHEAS ####[facility] LABCLIA [id number] [place] [address] [place] HbA1c (Bld)on 10-26-2024 Average glucose Estimated from glycated hemoglobin (Bld) [Mass/Vol] 94 mg/dL Normal [facility] Comment on above: Order Comment: Speci men Type: BLOOD SPECIMENOrdering Facility: [facility] Address: [address] [place] [address] Result Comment: eAG: (Estimated average glucose) is a calculated value from HgbA1c and is patient account representative of the average blood glucose level in the last 2-3 month period. Performed By: #### 5 5454-3 ####[facility] LABCLIA [id number] [place] [address] [place] HbA1c (Bld) [Mass fraction] 4.9 % Normal 4.3-5.6 [facility] Comment on above: Order Comment: Speci men Type: BLOOD SPECIMENOrdering Facility: [facility] Address: [address] [place] [address] Result Comment: Alexis [place] Diabetes Association guidelines indicate that patients with HgbA1c in the range 5.7-6.4% are at increased risk for development of diabetes, and intervention by lifestyle modification may be beneficial. HgbA1c greater or equal to 6.5% is considered diagnostic of diabetes. Performed By: #### 5 5454-3 ####[facility] LABCLIA [id number] [address] PAP TESTon 10-26-2024 ADEQUACY Satisfactory for interpretation. Normal [facility] Comment on above: Order Comment: Speci men Type: FLUID SPECIMENOrdering Facility: [facility] Address: [address] [place] [address] Performed By: #### L [id number] ####[facility] [id number] [address] LABCLIA [id number] [address] [facility] CASE REPORT Normal [facility] Comment on above: Order Comment: Speci men Type: FLUID SPECIMENOrdering Facility: [facility] Address: [address] [place] [address] Result Comment: Gyne cologic Cytology Report Case: [id number] Authorizing Provider: Petty Rubalcava APRN.CNM Collected: 10/26/2024 09:22 AM Ordering Location: OB/Gynecology Received: 10/26/2024 09:40 AM First Screen: Melissa, Jaci, CT, ASCP Specimen: Pap Test, ThinPrep, Cervix Performed By: #### L [id number] ####[facility] [id number] [address] LABCLIA [id number] [place] [address] [place] CLINICAL HISTORY, CYTOLOGY, DIRECTOR OF CLINICAL SERVICES Routine Exam Normal [facility] Comment on above: Order Comment: Speci men Type: FLUID SPECIMENOrdering Facility: [facility] Address: [address] [place] [address] Performed By: #### L [id number] ####[facility]ORYCLIA [id number] [place] [id number] [facility] LABCLIA [id number] [address] [place] FINAL PERFORMING LAB Normal [facility] Comment on above: Order Comment: Speci men Type: FLUID SPECIMENOrdering Facility: [facility] Address: [address] [place] [address] Result Comment: Tech nical component, chart computer screening performed at [facility], [id number] [place], [place] [id number] CLIA# [id number] Diagnostic interpretation performed at [facility], [address] [place] [id number] CLIA# [id number] Pipe Threader: Bethel King M.D. Performed By: #### L [id number] ####[facility]ORYCL[facility] [id number] [place] [id number] [facility] LABCLIA [id number] [address] OF [place] INTERPRETATION, CYTOLOGY, DIRECTOR OF CLINICAL SERVICES Normal [facility] Comment on above: Order Comment: Speci men Type: FLUID SPECIMENOrdering Facility: [facility] Address: [address] [place] [address] Result Comment: Nega tive for intraepithelial lesion or malignancy. Performed By: #### L [id number] ####[facility]ORYCL[facility] [id number] [place] [id number] [facility] LABCLIA [id number] [place] [address] [place] LMP 10/08/2024 Normal [facility] Comment on above: Order Comment: Speci men Type: FLUID SPECIMENOrdering Facility: [facility] Address: [address] [place] [address] Performed By: #### L [id number] ####[facility]ORYCLIA [id number] [place] [id number] [facility] LABCLIA [id number] [place] [address] [place] PAP DISCLAIMER COMMENT The Pap Smear is a screening test for cervical cancer. False negative results occur with all screening tests, emphasizing the need for rescreening at recommended intervals, and clinical correlation. Normal [facility] Comment on above: Order Comment: Speci men Type: FLUID SPECIMENOrdering Facility: [facility] Address: [address] [place] [address] Performed By: #### L [id number] ####[facility]ORYCL[facility] [id number] [address] LABCLIA [id number] [place] [address] [place] PAP CERTIFIED DRUG COUNSELOR COMMENT This specimen has be en analyzed by the ThinPrep Imaging System, an automated imaging and review system, which assists the laboratory in evaluating cells on ThinPrep Pap tests. Following automated imaging, selected hood from every slide are reviewed by a chart computer. Normal [facility] Comment on above: Order Comment: Speci men Type: FLUID SPECIMENOrdering Facility: [facility] Address: [address] [place] [address] Performed By: #### L [id number] ####[facility]ORYCLIA [id number] [place] [id number] [facility] LABCLIA [id number] [place] [address] [place] [facility] Prolactin [Mass/Vol] 9.6 ng/mL Normal 4.4-33.8 [facility] Comment on above: Order Comment: Speci men Type: BLOOD SPECIMENOrdering Facility: [facility] Address: [address] [place] [address] Result Comment: Prol actin test is performed using the [facility] Electrochemiluminescence Immunoassay method. Results obtained with different methods or kits cannot be used interchangeably. Performed By: #### 2 842-3, 3016-3, DHEAS ####[facility] LABCLIA [id number] [facility] [id number] [address] [place] TESTOSTERONE, FREE AND TOTAL , BY EQUILIBRIUM ULTRAFILTRATION MASS SPECTROMETRYon 10-26-2024 Testosterone [Mass/Vol] 20.9 ng/dL Normal 10.0-55.0 [facility] Comment on above: Order Comment: Speci men Type: BLOOD SPECIMENOrdering Facility: [facility] Address: [address] [place] [address] Performed By: #### T FTEST ####[facility] LABCLIA [id number] [place] [address] Testosterone Free [Mass/Vol] 0.45 ng/dL Normal 0.10-0.85 [facility] Comment on above: Order Comment: Speci men Type: BLOOD SPECIMENOrdering Facility: [facility] Address: [address] [place] [address] Performed By: #### T FTEST ####[facility] LABCLIA [id number] [place] [address] Testosterone Free/Testosterone.to katie [Mass fraction] 2.16 % Normal 0.50-2.80 [facility] Comment on above: Order Comment: Speci men Type: BLOOD SPECIMENOrdering Facility: [facility] Address: [address] [place] [address] Performed By: #### T FTEST ####[facility] LABCLIA [id number] [place] [address] TSH SerPl-aCncon 10-26-2024 TSH Qn 0.651 m[IU]/L Normal 0.270-4.200 [facility] Comment on above: Order Comment: Speci men Type: BLOOD SPECIMENOrdering Facility: [facility] Address: [address], [place] [address] Result Comment: If t he patient is , TSH reference range varies by gestational period: First Trimester (weeks 9-12): 0.180-2.990 mIU/L Second Trimester: 0.110-3.980 mIU/L Third Trimester: 0.480-4.710 mIU/L Yaniv Rivera et al. A Practical Approach for the Verifications and Determination of Site- and Trimester-Specific Reference Intervals for Thyroid Function tests in . Thyroid, 2019:29:3:412-420. Derek Liu, et al. 2017 Guidelines of the [place] Thyroid Association for the Diagnosis and Management of Thyroid Disease during and the . Thyroid, 2017:27:3:315-389. Performed By: #### 2 842-3, 3016-3, DHEAS ####[facility] LABCLIA [id number] [facility] [id number] [place] [address] [place] UA DIP, URINE (POC)on 2024 BILIRUBIN UA (POCT) Negative Negative Dustin [facility] CLARITY UA (POCT) Clear [facility] COLOR UA (POCT) Yellow [facility] GLUCOSE UA (POCT) Negative Negative mg/dL [facility] Hemoglobin Ql (U) Negative Negative [facility] KETONE UA (POCT) Negative Negative mg/dL [facility] LEUKOCYTES UA (POCT) Negative Negative [facility] NITRITE UA (POCT) Negative Negative [facility] PH UA (POCT) 6.0 4.5 - 8.0 [facility] Protein Ql (U) Negative Negative mg/dL [facility] SPECIFIC GRAVITY UA (POCT) 1.025 1.005 - 1.030 [facility] UROBILINOGEN UA (POCT) 0.2 Normal E.U./dL [facility] Location:[address], [place], [place], [id number] [place] [address] POINT OF CARE [facility] CNOVon 08-07-2024 CNOV Office Visit (OBGYWM ) -- EB HUI ([id number]) 1 F Date Time Provider Department 08/07/24 11:20 AM LYNN SMALLS OBGYWYessenia During your visit today, we recorded the following information about you: Blood pressure Weight Last Period 124/82 71.2 kg 07/23/24 Lynn Smalls MD 08/07/2024 12:36 PM Signed Eb Hui is a 24 year old female who presents for problem visit. HPI: Patient presents with right breast lump. She noticed it 2 months ago and thought it was a pimple. Over the past month it has been more tender. Size seems to be stable. 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 PAST MEDICAL HISTORY Diagnosis Date Anemia during in third trimester 06/19/2019 Herpes 09/22/2020 Mental disorder depression/anxiety Migraine without aura 02/11/2015 PONV (postoperative nausea and vomiting) Pre-eclampsia in third trimester 07/06/2019 Recurrent UTI was to be evaluated by urology Scoliosis Tension type headache 02/11/2015 PAST SURGICAL HISTORY Procedure Laterality Date TONSILLECTOMY AND ADENOIDECTOMY FAMILY HISTORY Problem Relation Age of Onset Diabetes Mother Heart Mother Hypertension Father Heart Father No Known Problems Brother Heart Maternal Grandmother No Known Problems Maternal Grandfather Diabetes Paternal Grandmother No Known Problems Paternal Grandfather Social History Tobacco Use Smoking status: Every Day Current packs/day: 0.25 Average packs/day: 0.3 packs/day for 4.0 years (1.0 ttl pk-yrs) Types: Cigarettes Smokeless tobacco: Never Tobacco comments: 5 cigarettes daily Substance Use Topics Alcohol use: No Drug use: No Current Outpatient Medications Medication Sig amphetamine-dextroamphetam ine XR (ADDERALL XR) 10 mg capsule Take 1 capsule by mouth every afternoon. ALPRAZolam (XANAX) 0.5 mg tablet albuterol HFA (PROAIR HFA) 90 mcg/actuation inhaler Inhale 2 Puffs as instructed every 6 hours as needed. (Patient not taking: Reported on 11/03/2023) predniSONE (DELTASONE) 10 mg tablet Take 4 tabs daily for 3 days, then 2 tabs daily for 3 days, then 1 tab daily for 3 days with food. (Patient not taking: Reported on 08/21/2023) L. acidophilus-L. rhamnosus 15 billion cell cap Take 1 capsule by mouth once daily. FLORAJEN WOMEN. If on antibiotic, take at least 1-2 hours before or after antibiotic. KEEP REFRIGERATED (Patient not taking: Reported on 05/22/2023) lactobacillus rhamnosus (CULTURELLE) 10 billion cell capsule Take 1 capsule by mouth once daily. (Patient not taking: Reported on 07/16/2023) No current facility-administered medications for this visit. Allergies As of Date: 08/07/2024 (No Known Allergies) Fully Assessed 08/07/2024 Allergies and current medication updated:Yes SENSITIVE EXAM: The sensitive examination was discussed with the Patient or Patient's Authorized Division Order Technician. As applicable, any other physician, advance practice provider, medical student, or other health professional student that will be observing or involved in the sensitive examination for educational or training purposes was discussed with the Patient or Authorized Division Order Technician. The Patient or Authorized Division Order Technician has agreed to proceed with the sensitive examination. (Sensitive examination includes inspection and/or palpation of the breasts, pelvis, prostate and anorectal regions). EXAM: BP 124/82 Wt 157 lb (71.2kg) LMP 07/23/2024 GENERAL: pleasant, female in no apparent distress BREAST: soft, non-tender, symmetric, no dominant mass, normal nipple-areolar complex, no lymphadenopathy, no nipple discharge, and fibrocystic changes bilaterally ASSESSMENT AND PLAN: Assessment AND Plan Fibrocystic breast changes of both breasts Patient reassured on normal breast exam. Reviewed conservative measures to help with fibrocystic breasts. Medical Decision Making: Problems: Low: Acute, uncomplicated illness or injury Risk: Low: Low risk from testing/treatment Medical Decision Making Level: 3 - Low Lynn Smalls MD Allergies As of Date: 08/07/2024 (No Known Allergies) Date Reviewed: 08/07/2024 Reviewed by: Lynn Smalls MD - Fully Assessed Reason for Visit: Breast Problem [16] Cmt: Noticed breast lump 2 month s ago- has gotten more tender if touched Primary Visit Diagnosis:Fibrocystic breast changes of both breasts [N60.11, N60.12] Prescriptions as of 08/07/2024 - amphetamine-dextroamphetam ine XR (ADDERALL XR) 10 mg capsule Take 1 capsule by mouth every afternoon. - ALPRAZolam (XANAX) 0.5 mg tablet Problem List As Of Date 08/07/2024 Noted Resolved Internal derangement of right knee [M23 (more content not included)... 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 Please see corresponding scanned documents with today's date. Office Procedures Physical Exam Coding PE Coding Pre-employment PE: Yes Coding Level of Care Code No Charge Diagnoses Encounter for pre-employment health screening examination Z02.1 Assessment and Plan Assessment and Plan (1) Encounter for pre-employment health screening examination: Status: Acute 07/02/24 1637 Date Michele Justice Signature: Date (if applicable) CC: Normal [facility] Abdomen/Pelvis W IV Cont ONL Yon 04-06-2024 Abdomen/Pelvis W IV Cont ONLY [facility] Imaging Services [address] [place] [address] Abdomen/Pelvis W IV Cont ONLY MR#: [id number] Acct: [id number] Name: EB HUI EILEEN Rep #: [id number] : 2000 F 24 From: Richie Nunez PCP: JEIMY Abrams Status: REG ER Study: Abdomen/Pelvis W IV Cont ONLY Date of Exam: Exam# [id number] Ordering Dr: Harish Vela DO [id number] INDICATION: rlq pain EXAMINATION: CT ABDOMEN AND PELVIS with CONTRAST - CT Abdomen And Pelvis W/ Contrast Injection TECHNIQUE: Multiple axial images were obtained of the abdomen and pelvis following administration of IV contrast. Planar reconstructions obtained. A radiation dose optimization technique was used for this scan. RADIATION DOSAGE (If Supplied By Facility): CTDIvol = ( 8.08 ) mGy, DLP = ( 525.61 ) mGycm IV Contrast dosage and agent: 100 mL Isovue-300 Oral contrast: None. COMPARISON: No pertinent previous studies for comparison.. FINDINGS: LOWER THORAX: Lungs are clear. Cardiac contour is normal, no pericardial effusion. No coronary vascular calcifications noted. HEPATOBILIARY: Liver: The liver is homogeneous and shows no evidence of focal lesion. Gallbladder: The gallbladder is unremarkable. Pancreas: Pancreas is normal size configuration and density. No mass is noted. Spleen: The spleen is homogeneous and normal in size. . BOWEL: Stomach: The stomach is normal in size configuration, no evidence of focal masses, abnormal calcifications. No hiatal hernia noted. Bowel: Small and large have normal configuration, no masses or bowel obstruction noted. No evidence of diverticulitis. Appendix: The appendix is visualized, no evidence of appendicitis. No soft tissue inflammatory changes abscess or bowel obstruction.: GENITOURINARY: Adrenals: Both adrenal glands are normal in size. Kidneys: Kidneys appear symmetric in size. No calcifications are seen in the collecting system. There is no hydronephrosis or surrounding fluid. Bladder: Normal Pelvic organs: Uterus is retroverted. No pelvic masses or fluid collections. RETROPERITONEUM: There is normal appearance of the abdominal aorta and inferior vena cava. LYMPH NODES: No evidence of retroperitoneal or para-aortic masses fluid collections or adenopathy. PERITONEAL CAVITY: No ascites noted ANTERIOR ABDOMINAL WALL: Normal, no hernia identified. BONES AND SOFT TISSUES: No acute bony changes. Mild lumbar spondylosis with a mild contour deformity of multiple endplates particularly T12 and L1. No acute fractures or acute destructive bony process. OTHER: None CT/Abdomen/Pelvis W IV Cont ONLY IMPRESSION: 1. No masses or bowel obstruction. No evidence of diverticulitis. 2. No evidence of appendicitis. 3. No renal calcifications or obstructive uropathy. 4. No evidence cholelithiasis or ductal dilatation. 5. No free fluid. Electronically Signed: Richie Welch MD at 20:12 EDT , CC: JEIMY aVsquez; Dr. Harish Vela DO Trolley Cleaner: Signed Normal [facility] CBC W/Diff, Automatedon 07- Absolute Lymph 2.45 X10 3/uL Normal 0.83-4.51 [facility] Comment on above: Performed By: #### L 100.0100, L700.6800, L500.4050 #### [facility] [address] [place], [address] Absolute Neut 4.4 X10 3/uL Normal 2.0-7.7 [facility] Comment on above: Performed By: #### L 100.0100, L700.6800, L500.4050 #### [facility] [address] [place], [address] Basophils/100 WBC (Bld) 0.3 % Normal 0-1 [facility] Comment on above: Performed By: #### L 100.0100, L700.6800, [id number] #### [facility] [address] [place], [address] Eosinophils/100 WBC (Bld) 0.8 % Normal 0-5 [facility] Comment on above: Performed By: #### L 100.0100, L700.6800, [id number] #### [facility] [address] [place], [address] Erythrocyte distribution width (RBC) [Ratio] 12.7 % Normal 11.6-14.6 [facility] Comment on above: Performed By: #### L 100.0100, L700.6800, L500.4050 #### [facility] [address] [place], [address] Hematocrit (Bld) [Volume fraction] 39.1 % Normal 37-47 [facility] Comment on above: Performed By: #### L 100.0100, L700.6800, L500.4050 #### [facility] [address] [place], [address] Hemoglobin (Bld) [Mass/Vol] 13.3 g/dL Normal 12.0-15.0 [facility] Comment on above: Performed By: #### L 100.0100, L700.6800, L500.4050 #### [facility] [address] [place], [address] IG% 0.100 Normal 0.0-0.9 [facility] Comment on above: Result Comment: IG% - Immature Granulocytes (promyelocytes, myelocytes and metamyelocytes) > 1% indicates that a LEFT SHIFT is Present. Performed By: #### L 100.0100, L700.6800, L500.4050 #### [facility] [address] [place], [address] Lymphocytes/100 WBC (Bld) 32.9 % Normal 19-41 [facility] Comment on above: Performed By: #### L 100.0100, L700.6800, L500.4050 #### [facility] [address] [place], [address] MCH (RBC) [Entitic mass] 31.1 pg Normal 27.0-32.0 [facility] Comment on above: Performed By: #### L 100.0100, L700.6800, L500.4050 #### [facility] [address] [place], [address] MCHC (RBC) [Mass/Vol] 34.0 g/dL Normal 32-36 [facility] Comment on above: Performed By: #### L 100.0100, L700.6800, L500.4050 #### [facility] [address] [place], [address] MCV (RBC) [Entitic vol] 91.4 fL Normal 81-99 [facility] Comment on above: Performed By: #### L 100.0100, L700.6800, L500.4050 #### [facility] [address] [place], [address] Monocytes/100 WBC (Bld) 7.3 % Normal 0-10 [facility] Comment on above: Performed By: #### L 100.0100, L700.6800, L500.4050 #### [facility] [address] [place], [address] Neutrophils/100 WBC (Bld) 58.6 % Normal 47-70 [facility] Comment on above: Performed By: #### L 100.0100, L700.6800, L500.4050 #### [facility] [address] [place], [address] Nucleated RBC (Bld) [#/Vol] 0 10*3/uL Normal 0-5 [facility] Comment on above: Performed By: #### L 100.0100, L700.6800, L500.4050 #### [facility] [address] [place], [address] Platelet mean volume (Bld) [Entitic vol] 9.4 fL Normal 6.2-12.0 [facility] Comment on above: Performed By: #### L 100.0100, L700.6800, L500.4050 #### [facility] [address] [place], [address] Platelets (Bld) [#/Vol] 246 10*3/uL Normal 150-450 [facility] Comment on above: Performed By: #### L 100.0100, L700.6800, L500.4050 #### [facility] [address] [place], [address] RBC (Bld) [#/Vol] 4.28 10*6/uL Normal 4.2-5.4 [facility] Comment on above: Performed By: #### L 100.0100, L700.6800, L500.4050 #### [place] [facility] [address] [place], [address] RDW SD 42.1 fl Normal 35.1-43.9 [facility] Comment on above: Performed By: #### L 100.0100, L700.6800, L500.4050 #### [facility] [address] [place], [address] WBC (Bld) [#/Vol] 7.4 10*3/uL Normal 4.4-11.0 [facility] Comment on above: Performed By: #### L 100.0100, L700.6800, L500.4050 #### [facility] [address] [place], [address] Comprehensive Metabolic Prof [facility] 04-06-2024 Albumin [Mass/Vol] 2.7 g/dL Low 3.2-5.0 [facility] Comment on above: Performed By: #### L 100.0100, L700.6800, L500.4050 #### [facility] [address] [place], [address] Albumin/Globulin [Mass ratio] 1.1 {ratio} Normal 0.9-2.4 [facility] Comment on above: Performed By: #### L 100.0100, L700.6800, L500.4050 #### [facility] [address] [place], [address] ALK P 38 U/L Low 45-117 [facility] Comment on above: Performed By: #### L 100.0100, L700.6800, L500.4050 #### [facility] [address] [place], [address] ALT [Catalytic activity/Vol] 18 U/L Normal 13-56 [facility] Comment on above: Performed By: #### L 100.0100, L700.6800, L500.4050 #### [facility] [address] [place], [address] AST [Catalytic activity/Vol] 11 U/L Low 15-37 [facility] Comment on above: Performed By: #### L 100.0100, L700.6800, L500.4050 #### [facility] [address] [place], [address] Bilirubin [Mass/Vol] 0.20 mg/dL Normal 0.20-1.00 [facility] Comment on above: Result Comment: For patients on eltrombopag therapy, use of Dimension [place] TBIL is not recommended. Performed By: #### L 100.0100, L700.6800, L500.4050 #### [facility] [address] [place], [address] BUN/CRE 21.1 RATIO High 10-20 [facility] Comment on above: Performed By: #### L 100.0100, L700.6800, L500.4050 #### [facility] [address] [place], [address] CA,Total 6.6 mg/dL Low 8.5-10.1 [facility] Comment on above: Performed By: #### L 100.0100, L700.6800, L500.4050 #### [facility] [address] [place], [address] Chloride [Moles/Vol] 117 mmol/L High 98-107 [facility] Comment on above: Performed By: #### L 100.0100, L700.6800, L500.4050 #### [facility] [address] [place], [address] CO2 [Moles/Vol] 19.0 mmol/L Low 21.0-32.0 [facility] Comment on above: Performed By: #### L 100.0100, L700.6800, L500.4050 #### [facility] [address] [place], [address] Creatinine [Mass/Vol] 0.52 mg/dL Low 0.55-1.02 [facility] Comment on above: Result Comment: The validity of the calculated GFR GFRAA in patients over 70 years has not been determined. Clinical correlation is essential. Performed By: #### L 100.0100, L700.6800, L500.4050 #### [facility] [address] [place], [address] EST GFR - AA 185 mL/min Normal >60 [facility] Comment on above: Result Comment: Afri can Eritrean GFR Calc Performed By: #### L 100.0100, L700.6800, L500.4050 #### [facility] [address] [place], [address] GAP 8 Normal 5-15 [facility] Comment on above: Performed By: #### L 100.0100, L700.6800, L500.4050 #### [facility] [address] [place], [address] GFR/1.73 sq M.predicted among non-blacks MDRD (S/P/Bld) [Vol rate/Area] 153 mL/min/{1.73_m2} Normal >60 [facility] Comment on above: Result Comment: Non- GFR Calc Performed By: #### L 100.0100, L700.6800, L500.4050 #### [facility] [address] [place], [address] Globulin (S) [Mass/Vol] 2.5 g/dL Normal 2.2-4.2 [facility] Comment on above: Performed By: #### L 100.0100, L700.6800, L500.4050 #### [facility] [address] [place], [address] Glucose [Mass/Vol] 76 mg/dL Normal 74-106 [facility] Comment on above: Performed By: #### L 100.0100, L700.6800, L500.4050 #### [facility] [address] [place], [address] Potassium [Moles/Vol] 2.8 mmol/L Low 3.5-5.1 [facility] Comment on above: Performed By: #### L 100.0100, L700.6800, L500.4050 #### [facility] [address] [place], [address] Sodium [Moles/Vol] 144 mmol/L Normal 136-145 [facility] Comment on above: Performed By: #### L 100.0100, L700.6800, L500.4050 #### [facility] [address] [place], [address] T PROT 5.2 g/dL Low 6.4-8.2 [facility] Comment on above: Performed By: #### L 100.0100, L700.6800, L500.4050 #### [facility] [address] [place], [address] Urea nitrogen [Mass/Vol] 11 mg/dL Normal 7-18 [facility] Comment on above: Performed By: #### L 100.0100, L700.6800, L500.4050 #### [facility] [address] [place], [address] Emergency Department Summary on 04-06-2024 Emergency Department Summary [facility] Records Department [address] [place] [address] Emergency Department Summary 04/06/24 MR#: [id number] Acct: [id number] Name: EB HUI Rep #: [id number] : 2000 24 From: Harish Vela DO PCP: NP. Petty Vasquez NP-C Status:DEP ER Location: ED HPI HPI - GI History of Present Illness Chief Complaint: GI Bleed Narrative Narrative: 24-year-old female presenting with abdominal pain, nausea. Patient states she noted that nausea started yesterday. She has been having a low constant amount of pain with intermittent aching. She states initially it was around her umbilicus but now it is localized to the right lower quadrant. She feels ill. Today she has had fevers of 102 ???F all day. She thought she might of been constipated so she took stool softener Gummies and had a bowel movement. She does note that Saturday she had a little bit of blood in her stool but she did not have any other symptoms then. PFSH PFSH Home Medications ???Medication ???Instructions ???Recorded ???Last Taken ???Type alprazolam 0.5 mg tablet 0.5 mg PO PRN anxiety 06/12/23 Unknown History ondansetron 4 mg disintegrating 4 mg PO Q8H PRN PRN Nausea #14 tabs 04/06/24 Unknown Rx tablet Allergy/AdvReac Type Severity Reaction Status Date / Time No Known Allergies Allergy Verified 04/06/24 17:11 Surgical History History of tonsillectomy and adenoidectomy Social History Smoking Status: Current every day smoker tobacco type: e-cigarettes ROS ROS ED Constitutional Constitutional ED: Denies chills, fever(s) or sweats Eyes Eyes: Denies blurry vision or change in vision ENT ENT ED: Denies ear pain or sore throat Cardiovascular Cardiovascular: Denies chest pain, palpitations or racing heartbeat Respiratory/Chest Respiratory/Chest: Denies cough, dyspnea or sputum Gastrointestinal Gastrointestinal: Reports abdominal pain, nausea and other Details: Blood in stool ; Denies constipation, diarrhea or vomiting Genitourinary Genitourinary ED: Denies dysuria, hematuria or urinary frequency Musculoskeletal Musculoskeletal: Denies arthralgias, myalgias or neck pain Integumentary Denies abscess, Abrasions or rash Neurologic Neurologic: Denies headache(s), paresthesias or weakness Psychiatric Psychiatric: Denies anxiety, depression, suicidal ideation or suicidal thoughts Endocrine Endocrinology: Denies polydipsia or polyuria EXAM Physical Exam Const Vital Signs: 04/06/24 17:07 04/06/24 17:07 04/06/24 19:10 Temperature 96.3 F L 96.3 F L 99.1 F Temperature Source Temporal Temporal Oral Pulse Rate 60 60 89 Respiratory Rate 16 16 16 Blood Pressure 115/95 H 115/95 H 129/93 H Blood Pressure Mean 101 101 105 Pulse Ox 99 99 98 Oxygen Delivery Method Room Air Room Air Room Air 04/06/24 20:42 Temperature 99.1 F Temperature Source Pulse Rate 64 Respiratory Rate 18 Blood Pressure 121/76 H Blood Pressure Mean 91 Pulse Ox 98 Oxygen Delivery Method Positive well nourished General Appearance ED: NAD; Negative for pallor HEENT Reports moist mucous membranes Eyes PERRL Resp normal respiratory effort Cardio regular rate and regular rhythm GI Palpation: tender McBurney's point and periumbilical Neuro CN's II-XII intact bilaterally Sensorium / Orientation: alert Psych mental status grossly normal and thought process normal Skin no wounds General Skin Exam: Negative for jaundice or pallor MDM MDM MDM Narrative Medical decision making narrative: Patient presenting with right-sided abdominal pain. Patient presenting with right flank pain. Differential includes colitis, diverticulitis, gastritis, pancreatitis, acute cholecystitis, constipation, appendicitis, UTI, pyelonephritis, calculi, ureteral calculi, obstruction, malignancy, dehydration, electrolyte abnormalities, ovarian torsion, ovarian cyst, ectopic . CBC will be obtained to assess white blood cell count, hemoglobin, platelets. CMP to assess renal function, electrolytes, liver function, glucose. Lipase to assess for pancreatitis. Urinalysis to assess for UTI. CBC shows normal white blood cell count 7.4. Hemoglobin 13.3. Platelets are normal at 246. Calcium 2.8. Renal function and electrolytes otherwise unremarkable. LFTs are normal. hCG negative. Patient declines analgesia want something for nausea. CBC shows normal white blood cell count of 7.4. Hemoglobin 13.3. Platelets 246. CT of the abdomen pelvis negative for acute findings. Renal function and electrolytes within normal limits with exception of a potassium of 2.8. This will be repleted orally. Patient counseled that her hemoglobin is no (more content not included)... Normal [facility] ,Serum,hCG Quali.on 04-06-2024 HCG, SERUM QUAL Negative Normal [facility] Comment on above: Performed By: #### L 100.0100, L700.6800, L500.4050 #### [facility] [address] [place], [address] Urinalysis, Completeon 04-06 BACTERIA 1+ /hpf Normal None Seen [facility] Comment on above: Order Comment: GUERLINE CTOR TO SPECIFY Performed By: #### L [id number] #### [facility] Laboratory [address] [place], [address] EPI,SQUAMOUS 0-5 SEEN Normal 5-10 [facility] Comment on above: Order Comment: GUERLINE CTOR TO SPECIFY Performed By: #### L [id number] #### [facility] [address] [place], [address] Mucus Ql (Urine sed) 0 SEEN Normal [facility] Comment on above: Order Comment: GUERLINE CTOR TO SPECIFY Performed By: #### L [id number] #### [facility] [address] [place], [address] RBC 0 SEEN Normal 0-5 [facility] Comment on above: Order Comment: GUERLINE CTOR TO SPECIFY Performed By: #### L [id number] #### [facility] [address] [place], [address] WBC 0 SEEN Normal 0-5 [facility] Comment on above: Order Comment: GUERLINE CTOR TO SPECIFY Performed By: #### L [id number] #### [facility] [address] [place], [address] UA DIP, URINE (POC)on 2023 BILIRUBIN UA (POCT) Negative Negative [facility] CLARITY UA (POCT) Cloudy [facility] COLOR UA (POCT) Yellow [facility] GLUCOSE UA (POCT) Negative Negative mg/dL [facility] Hemoglobin Ql (U) Trace-intact Abnormal Negative [facility] KETONE UA (POCT) Negative Negative mg/dL [facility] LEUKOCYTES UA (POCT) Moderate Abnormal Negative [facility] NITRITE [facility] (POCT) Negative Negative [facility] PH UA (POCT) 7.0 4.5 - 8.0 [facility] Protein Ql (U) Negative Negative mg/dL [facility] SPECIFIC GRAVITY UA (POCT) 1.020 1.005 - 1.030 [facility] UROBILINOGEN UA (POCT) 0.2 E.U./dL Normal E.U./dL [facility] STREP A MOLECULAR (POC)on Procedural Control Valid [facility] Strep A (POCT) Negative Negative [facility] XR CHEST 2V FRONTAL/LATon [facility] XR Chest PA and Lateralon IMPRESSION: No acute radiographic abnormality. Trolley Cleaner: PSCChristine Transcribe Date/Time: Jul 16 2023 8:01P Dictated by : MAURICIO BUTTS MD This examination was interpreted and the report reviewed and electronically signed by: MAURICIO BUTTS MD on Jul 16 2023 8:02PM [facility] DIVISION OF RADIOLOGY * * *Final Report* * * DATE OF EXAM: Jul 16 2023 7:44PM WOX 5291 - XR CHEST 2V FRONTAL/LAT / PROCEDURE REASON: Hemoptysis * * * * Physician Interpretation * * * * EXAMINATION: CHEST RADIOGRAPH (2 VIEW FRONTAL & LATERAL) CLINICAL HISTORY: Hemoptysis MQ: XC2_6 EXAM DATE/TIME: 07/16/2023 7:44 PM COMPARISON: 01/10/2021 RESULT: Lines, tubes, and devices: None. Lungs and pleura: No consolidation. No lung mass. No pleural effusion. No pneumothorax. Cardiomediastinal silhouette: Normal cardiomediastinal silhouette. Bones and soft tissues: Bilateral nipple ornamentation. Visualized portions of the bony thorax appear intact. DIVISION OF RADIOLOGY Provider, [facility] - 07/16/2023 * * *Final Report* * * DATE OF EXAM: Jul 16 2023 7:44PM WOX 5291 - XR CHEST 2V FRONTAL/LAT / PROCEDURE REASON: Hemoptysis * * * * Physician Interpretation * * * * EXAMINATION: CHEST RADIOGRAPH (2 VIEW FRONTAL & LATERAL) CLINICAL HISTORY: Hemoptysis MQ: XC2_6 EXAM DATE/TIME: 07/16/2023 7:44 PM COMPARISON: 01/10/2021 RESULT: Lines, tubes, and devices: None. Lungs and pleura: No consolidation. No lung mass. No pleural effusion. No pneumothorax. Cardiomediastinal silhouette: Normal cardiomediastinal silhouette. Bones and soft tissues: Bilateral nipple ornamentation. Visualized portions of the bony thorax appear intact. IMPRESSION IMPRESSION: No acute radiographic abnormality. Trolley Cleaner: PSCB Transcribe Date/Time: Jul 16 2023 8:01P Dictated by : MAURICIO BUTTS MD This examination was interpreted and the report reviewed and electronically signed by: MAURICIO BUTTS MD on Jul 16 2023 8:02PM EST [facility] Radiology Study observation (narrative) [facility] XR Chest PA and LateralOrder ed By: C[facility] Provider on 07-16-2023 [facility] Absolute lymphocyte countOrd ered By: Christian Callahan on 06-12-2023 Lymphocytes Auto (Unsp spec) [#/Vol] 3.16 10*3/uL 0.83-4.51 [facility] Basophil percentageOrdered B y: Christian Callahan on 06-12-2023 Basophils/100 WBC (Bld) 0.2 % 0-1 [facility] Chloride [Moles/Vol] 107 mmol/L 98-107 [facility] Eosinophils/100 WBC (Bld) 0.2 % 0-5 [facility] Glucose [Mass/Vol] 93 mg/dL 74-106 [facility] Neutrophils (Bld) [#/Vol] 4.6 10*3/uL 2.0-7.7 [facility] Neutrophils/100 WBC (Bld) 53.4 % 47-70 [facility] Potassium [Moles/Vol] 3.6 mmol/L 3.5-5.1 [facility] Sodium [Moles/Vol] 138 mmol/L 136-145 [facility] WBC (Bld) [#/Vol] 8.7 10*3/uL 4.4-11.0 [facility] Blood erythrocytes count (nu mber/volume)Ordered By: Christian Callahan on 06-12-2023 RBC (Bld) [#/Vol] 4.87 10*6/uL 4.2-5.4 [facility] Blood hemoglobin measurement (mass/volume)Ordered By: Christian Callahan on 06-12-2023 Hemoglobin (Bld) [Mass/Vol] 14.7 g/dL 12.0-15.0 [facility] Blood lymphocytes/100 leukoc ytesOrdered By: Christian Callahan on 06-12-2023 Lymphocytes/100 WBC (Bld) 36.3 % 19-41 [facility] Blood monocytes/100 leukocyt esOrdered By: [facility] Call[facility] on 06-12-2023 Monocytes/100 WBC (Bld) 9.7 % 0-10 [facility] Blood platelet mean volumeOr dered By: Christian Callahan on 06-12-2023 Platelet mean volume (Bld) [Entitic vol] 9.6 fL 6.2-12.0 [facility] Determination of erythrocyte mean corpuscular volume (MCV)Ordered By: Christian Callahan on 06-12-2023 MCV (RBC) [Entitic vol] 92.0 fL 81-99 [facility] Hematocrit Auto (Bld) [Volum e fraction]Ordered By: [facility] Callahan on 06-12-2023 Hematocrit (Bld) [Volume fraction] 44.8 % 37-47 [facility] Laboratory - Chemistry and C hemistry - challengeOrdered By: Christian Callahna on 06-12-2023 CO2 [Moles/Vol] 26.0 mmol/L 21.0-32.0 [facility] Urea nitrogen/Creatinine [Mass ratio] 10.3 mg/mg 10-20 [facility] Laboratory - Hematology and Cell countsOrdered By: [facility] Callahan on 06-12-2023 Erythrocyte distribution width (RBC) [Entitic vol] 43.3 fL 35.1-43.9 [facility] Erythrocyte distribution width (RBC) [Ratio] 12.8 % 11.6-14.6 [facility] Immature granulocytes/100 WBC (Bld) 0.200 % 0.0-0.9 [facility] Comment on above: IG% - Immature Granu locytes (promyelocytes, myelocytes and metamyelocytes) > 1% indicates that a LEFT SHIFT is Present. MCH (RBC) [Entitic mass] 30.2 pg 27.0-32.0 [facility] Nucleated RBC/100 WBC (Bld) [Ratio] 0 % 0-5 [facility] MCHC Auto (RBC) [Mass/Vol]Or dered By: Christian Callahan on 06-12-2023 MCHC (RBC) [Mass/Vol] 32.8 g/dL 32-36 [facility] No Panel InformationOrdered By: Christian Callahan on 06-12-2023 D-Dimer Quantitative (PE/DVT) 0.59 FEU/ug/m 0.27-0.49 [facility] Comment on above: D-Dimer ELEVATED (>0 .49): Additional studies and clinicalassessments are indicated to conclude diagnosis of:Deep Vein Thrombosis (DVT) or Pulmonary Embolism (PE)RESULTS CALLED TO KRYSTAL LÓPEZ RN 06/12/23 0755 Lynn Womack.REPORT READ BACK BY SAME Estimated Creatinine Clearance Calc 83.58 ml/min [facility] Estimated GFR (MDRD) Amer 91 mL/min >60 [facility] Comment on above: GFR Calc Estimated GFR (MDRD) Non-Af Amer 75 mL/min >60 [facility] Comment on above: Non- GFR Calc Troponin I High Sensitivity < 3 pg/mL 3.0-54.0 [facility] Comment on above: Please Note: New Amy t Units and Gender Specific Reference Ranges. For more information see Policy Stat Procedure Francisco High Sensitivity Troponin (TNIH) and attachments. Platelets bldOrdered By: Malena Callahan on 06-12-2023 Platelets (Bld) [#/Vol] 286 10*3/uL 150-450 [facility] Serum or plasma calcium mckinley urement (mass/volume)Ordered By: Christian Callahan on 06-12-2023 Calcium [Mass/Vol] 8.5 mg/dL 8.5-10.1 [facility] Serum or plasma creatinine m easurement (mass/volume)Ordered By: Christian Callahan on 06-12-2023 Creatinine [Mass/Vol] 0.98 mg/dL 0.55-1.02 [facility] Comment on above: The validity of the calculated GFR & GFRAA in patients over 70 years has not been determined. Clinical correlation is essential. Serum or plasma urea nitroge n measurement (mass/volume)Ordered By: Remus Ungur on 06-12-2023 Urea nitrogen [Mass/Vol] 10 mg/dL -18 [facility] Thin prep Papanicolaou smear with manual screeningOrdered By: Remus Ungur on 06-12-2023 Thin prep Papanicolaou smear with manual screening 5 5-15 [facility] BACTERIAL VAGINOSIS NAATon 0 04-24-2023 Lactobacillus crispatus+gasseri+je nsenii + Gardnerella vaginalis + Atopobium vaginae rRNA SOL+probe Ql (Vag fld) Positive Abnormal Negative for bacterial vaginosis [facility] RANCHO/TRICHOMONAS NAATon 0 04-24-2023 C. glabrata RNA SOL+probe Ql (Vag fld) Negative Negative for Rancho glabrata [facility] Rancho sp DNA SOL+probe Ql (Vag fld) Negative Negative for Rancho species [facility] T. vaginalis DNA SOL+probe Ql (Unsp spec) Negative Negative for Trichomonas vaginalis by amplification [facility] HCG QUAL UR B/Oon 02-21-2023 status Negative neg - pos [facility] Quality Check Yes [facility] UA DIP, URINE (POC)on 2022 BILIRUBIN UA (POCT) Small Abnormal Negative [facility] CLARITY UA (POCT) Slightly Cloudy Cl [facility] COLOR UA (POCT) Other [facility] GLUCOSE UA (POCT) Negative Negative mg/dL [facility] HEMOGLOBIN/BLOOD UA (POCT) Small Abnormal Negative [facility] KETONE UA (POCT) Trace Negative mg/dL [facility] LEUKOCYTES UA (POCT) Small Abnormal Negative [facility] NITRITE UA (POCT) Negative Negative [facility] PH UA (POCT) 5.0 4.5 - 8.0 [facility] Protein Ql (U) Negative Negative mg/dL [facility] SPECIFIC GRAVITY UA (POCT) 1.025 1.005 - 1.030 [facility] UROBILINOGEN UA (POCT) 0.2 E.U./dL Normal E.U./dL [facility] HISTORY PHYSICALon 3 HISTORY PHYSICAL HNO ID: [id number] Author: Junior Bella PA-C Service: ? Author Type: Physician Bridge Construction Inspector Type: HANDP Filed: 01/03/2023 12:40 PM Note Text: HISTORY AND PHYSICAL EXAMINATION SERVICE DATE: 01/02/2023 SERVICE TIME: 11:42 AM PRIMARY CARE PHYSICIAN: Carolann Matthew MD REASON FOR VISIT: Eb Hui is a 22 year old female who is scheduled for Procedure(s): PERCUTANEOUS TRANSCATHETER PERMANENT OCCLUSION OR EMBOLIZATION ANY METHOD CENTRAL NERVOUS SYSTEM (N/A) LARYNGOSCOPY DIRECT (N/A) at the request of Dr. Aliya Mcdaniels for consultation. My final recommendation will be communicated back to the requesting physician by way of shared medical record or letter. Subjective The patient has the following: ACTIVE PROBLEM LIST Frequent Uti Mild Major Depression (Hcc) History of Depression History of Scoliosis Scoliosis History of Mrsa Infection Oropharyngeal Lesion Smoker COVID-19 Immunization Status Overdue - COVID-19 VACCINE (1) Overdue - never done No completion, postpone, frequency change, or communication history exists for this topic. CHIEF COMPLAINT: Pre-anesthesia optimization HPI: Eb Hui is a 22 year old female presenting for pre-anesthesia consultation. Pt has history of known oropharyngeal lesion that has grown and caused more symptoms over time. 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 Above procedure recommended to manage symptoms. Procedure scheduled on 01/04/2023 at [facility] [place]. REVIEW OF SYSTEMS: General: No weight loss, malaise or fevers. Neurological: No history of TIA's, stroke, FAMILY MEDICINE PHYSICIAN ASSISTANT tumor, impaired sensorium, hemiplegia, paraplegia or quadraplegia. No neurological symptoms or problems. Respiratory: Positive for: tobacco use (smokes 1 ppd x last 4 years). Negative for: asthma, COPD, current cough, dyspnea, URI < 2 weeks and obstructive sleep apnea. Cardiovascular: No history of HTN requiring medication, no history of angina, CHF, [place], cardiac surgery or stents. Denies rest pain, gangrene or revascularization/amputati on for PVD. No history of cardiovascular symptoms or problems. GI: No history of GI symptoms or problems. No history of esophageal varices, recent ascites, or ETOH greater than 2 drinks per day. : Positive for: urinary tract infection (last UTI one month ago). Negative for: dysuria, frequent urination, nephrolithiasis, renal failure and urgency. DIRECTOR OF CLINICAL SERVICES: LMP 12/31/22 Endocrine: No history of diabetes. Has not taken steroids within the past 30 days. No history of endocrinological symptoms or problems. Hematology: No history of bleeding or clotting disorder. Patient is not taking anti-coagulation or platelet medications. No history of hematological symptoms or problems. Oncology: No history of CA metastasis, chemo within 30 days, or radiotherapy within 90 days. No history of oncological symptoms or problems. Psych: Positive for: anxiety (h/o panic attacks) and depression. Musculoskeletal: Positive for: back pain (chronic, no surgeries). Skin: Negative for lesions, rash and itching. PAST MEDICAL HISTORY Diagnosis Date Anemia during in third trimester 06/19/2019 Herpes 09/22/2020 Mental disorder depression/anxiety Migraine without aura 02/11/2015 Pre-eclampsia in third trimester 07/06/2019 Recurrent UTI was to be evaluated by urology Scoliosis Tension type headache 02/11/2015 PAST SURGICAL HISTORY Procedure Laterality Date TONSILLECTOMY AND ADENOIDECTOMY FAMILY HISTORY Problem Relation Age of Onset Diabetes Mother Heart Mother Hypertension Father Heart Father No Known Problems Brother Heart Maternal Grandmother No Known Problems Maternal Grandfather Diabetes Paternal Grandmother No Known Problems Paternal Grandfather Social History Tobacco Use Smoking status: Every Day Packs/day: 0.25 Years: 4.00 Pack years: 1.00 Types: Cigarettes Smokeless tobacco: Never Tobacco comments: 5 cigarettes daily Substance Use Topics Alcohol use: No Drug use: No Prior to Admission medications as of 01/03/23 1058 Medication Sig Last Dose Taking L. acidophilus-L. rhamnosus 15 billion cell cap Take 1 capsule by mouth once daily. FLORAJEN WOMEN. If on antibiotic, take at least 1-2 hours before or after antibiotic. KEEP REFRIGERATED Taking Yes fluocinolone (SYNALAR) 0.01 % cream APPLY EXTERNALLY TO AFFECTED AREA TWICE DAILY FOR 2 WEEKS THEN EVERY DAY FOR 1 WEEK lactobacillus rhamnosus (CULTURELLE) 10 billion cell capsule Take 1 capsule by mouth once daily. levonorgestrel (MIRENA) 20 mcg/24 hours (6 yrs) 52 mg IUD 1 Each by INTRAUTERINE route one time only. Medication Comments documented by Christie Davis RN on 12/15/2015 at 1308. Not on ocella ALLERGIES No Known Allergies Objective PHYSICAL EXAM: General: alert and oriented and healthy appearance. Pertinent negatives noted - not distressed. Skin: normal color, no rash or lesions. HEENT: EOM i (more content not included)... Normal [facility] GC/Chlamydia Amp, Uron 07-06 Chlamydia Amplif, Ur Normal [facility] Comment on above: Result Comment: Nega tive for For screening asymptomatic women, a vaginal swab specimen (APTIMA vaginal swab 292835) is optimal. Urine specimens have reduced sensitivity for Chlamydia trachomatis or Neisseria gonorrhoeae infection in female patients without symptoms. This test was developed and its performance characteristics determined by [facility] Pathology and [facility] ([facility]). It has not been cleared or approved by the FDA. [facility] is regulated under CLIA as qualified to perform high complexity testing. This test is used for clinical purposes. It should not be regarded as investigational or for research. Chlamydia For screening asymptomatic women, a vaginal swab specimen (APTIMA vaginal swab 926412) is optimal. Urine specimens have reduced sensitivity for Chlamydia trachomatis or Neisseria gonorrhoeae infection in female patients without symptoms. This test was developed and its performance characteristics determined by [facility] Pathology and Laboratory [facility] ([facility]). It has not been cleared or approved by the FDA. [facility] is regulated under CLIA as qualified to perform high complexity testing. This test is used for clinical purposes. It should not be regarded as investigational or for research. trachomatis by For screening asymptomatic women, a vaginal swab specimen (APTIMA vaginal swab 155803) is optimal. Urine specimens have reduced sensitivity for Chlamydia trachomatis or Neisseria gonorrhoeae infection in female patients without symptoms. This test was developed and its performance characteristics determined by [facility] Pathology [facility] ( [facility]). It has not been cleared or approved by the FDA. [facility] is regulated under CLIA as qualified to perform high complexity testing. This test is used for clinical purposes. It should not be regarded as investigational or for research. amplification. For screening asymptomatic women, a vaginal swab specimen (APTIMA vaginal swab 009220) is optimal. Urine specimens have reduced sensitivity for Chlamydia trachomatis or Neisseria gonorrhoeae infection in female patients without symptoms. This test was developed and its performance characteristics determined by [facility] ( [facility]). It has not been cleared or approved by the FDA. [facility] is regulated under CLIA as qualified to perform high complexity testing. This test is used for clinical purposes. It should not be regarded as investigational or for research. Performed By: #### U GCCT #### [facility] Routine Lab [address] [place], [place] [address] GC Amplification, Ur NGNEG Normal [facility] Comment on above: Performed By: #### U GCCT #### [facility] Routine Lab [address] [place], [place] [address] XR Chest PA and Lateralon IMPRESSION: No acute radiographic abnormality. Trolley Cleaner: OLGA Transcribe Date/Time: Jan 10 2021 2:42P Dictated by : CLARK VILLAR MD This examination was interpreted and the report reviewed and electronically signed by: CLARK VILLAR MD on Jan 10 2021 2:44PM [facility] DIVISION OF RADIOLOGY * * *Final Report* * * DATE OF EXAM: Jan 10 2021 2:40PM WOX 5291 - XR CHEST 2V FRONTAL/LAT / PROCEDURE REASON: multiple diagnoses * * * * Physician Interpretation * * * * EXAMINATION: CHEST RADIOGRAPH (2 VIEW FRONTAL & LATERAL) CLINICAL HISTORY: Cough Chest pain, unspecified type MQ: XC2_6 EXAM DATE/TIME: 01/10/2021 2:40 PM COMPARISON: 07/08/2019 RESULT: Lines, tubes, and devices: None. Lungs and pleura: No consolidation. No lung mass. No pleural effusion. No pneumothorax. Pneumonia has resolved Cardiomediastinal silhouette: Normal cardiomediastinal silhouette. Bones and soft tissues: Unremarkable. DIVISION OF RADIOLOGY Provider, [facility] - 01/10/2021 * * *Final Report* * * DATE OF EXAM: Jan 10 2021 2:40PM WOX 5291 - XR CHEST 2V FRONTAL/LAT / PROCEDURE REASON: multiple diagnoses * * * * Physician Interpretation * * * * EXAMINATION: CHEST RADIOGRAPH (2 VIEW FRONTAL & LATERAL) CLINICAL HISTORY: Cough Chest pain, unspecified type MQ: XC2_6 EXAM DATE/TIME: 01/10/2021 2:40 PM COMPARISON: 07/08/2019 RESULT: Lines, tubes, and devices: None. Lungs and pleura: No consolidation. No lung mass. No pleural effusion. No pneumothorax. Pneumonia has resolved Cardiomediastinal silhouette: Normal cardiomediastinal silhouette. Bones and soft tissues: Unremarkable. IMPRESSION IMPRESSION: No acute radiographic abnormality. Trolley Cleaner: PSCB Transcribe Date/Time: Jan 10 2021 2:42P Dictated by : CLARK VILLAR MD This examination was interpreted and the report reviewed and electronically signed by: CLARK VILLAR MD on Jan 10 2021 2:44PM EST [facility] Radiology Study observation (narrative) [facility] XR Chest PA and LateralOrder ed By: Ccf Provider on 01-10-2021 [facility] Basic Metabolic Panelon - Anion gap [Moles/Vol] 9 mmol/L Normal 3-13 [facility] Comment on above: Performed By: #### E SR, CRP2, PCAL, PT, BMP3, HEMDF, TSH5 #### [facility] [address] [place] [address] Calcium [Mass/Vol] 9.1 mg/dL Normal 8.4-10.4 [facility] Comment on above: Performed By: #### E SR, CRP2, PCAL, PT, BMP3, HEMDF, TSH5 #### [facility] [address] [place] [address] CO2 [Moles/Vol] 22 mmol/L Normal 22-30 [facility] Comment on above: Performed By: #### E SR, CRP2, PCAL, PT, BMP3, HEMDF, TSH5 #### [facility] [address] [place] [address] Glucose [Mass/Vol] 128 mg/dL High 70-100 [facility] Comment on above: Performed By: #### E SR, CRP2, PCAL, PT, BMP3, HEMDF, TSH5 #### [facility] [address] [place] [address] Urea nitrogen [Mass/Vol] 7 mg/dL Normal 7-20 [facility] Comment on above: Performed By: #### E SR, CRP2, PCAL, PT, BMP3, HEMDF, TSH5 #### [address] Creatinine [Mass/Vol] 0.57 mg/dL Normal 0.52-1.25 [facility] Comment on above: Performed By: #### E SR, CRP2, PCAL, PT, BMP3, HEMDF, TSH5 #### [address] GFR/1.73 sq M predicted among blacks MDRD (S/P/Bld) [Vol rate/Area] mL/min/{1.73_m2} Normal >60 [facility] Comment on above: Performed By: #### E SR, CRP2, PCAL, PT, BMP3, HEMDF, TSH5 #### [address] GFR/1.73 sq M predicted among non-blacks MDRD (S/P/Bld) [Vol rate/Area] mL/min/{1.73_m2} Normal >60 [facility] Comment on above: Result Comment: KDIG O guidelines provide the following GFR categories: Stage GFR(ml/min/1.73 m2) Terms G1 >=90 Normal or high G2 60-89 Mildly decreased* G3a 45-59 Mildly to moderately decreased G3b 30-44 Moderately to severely decreased G4 15-29 Severely decreased G5 <15 Kidney failure *Relative to young adult level. In the absence of evidence of kidney damage, neither GFR category G1 nor G2 fulfill the criteria for CKD. The CKD-EPI equation is validated in individuals 18 years of age and older. Currently the best equation for estimating glomerular filtration rate (GFR) from serum creatinine in children is the [place]side [place] equation. It is less accurate in patients with extremes of muscle mass, restriction of dietary protein, ingestion of creatine, extra-renal metabolism of creatinine, or treatment with medications that affect renal tubular creatinine secretion. Performed By: #### E SR, CRP2, PCAL, PT, BMP3, HEMDF, TSH5 #### [address] Potassium [Moles/Vol] 4.0 mmol/L Normal 3.5-5.1 [facility] Comment on above: Performed By: #### E SR, CRP2, PCAL, PT, BMP3, HEMDF, TSH5 #### [facility] [address] [place] Sodium [Moles/Vol] 138 mmol/L Normal 135-145 [facility] Comment on above: Performed By: #### E SR, CRP2, PCAL, PT, BMP3, HEMDF, TSH5 #### [facility] [address], [place] Chloride [Moles/Vol] 108 mmol/L High 98-107 [facility] Comment on above: Performed By: #### E SR, CRP2, PCAL, PT, BMP3, HEMDF, TSH5 #### [place] [address] [place] [place], [place] Anion gap [Moles/Vol] 9 mmol/L 3 - 13 mmol/L [facility] Work Phone: Calcium [Mass/Vol] 9.1 mg/dL 8.4 - 10. 4 mg/dL [facility] Work Phone: Chloride [Moles/Vol] 108 mmol/L High 98 - 10 7 mmol/L [facility] Work Phone: CO2 [Moles/Vol] 22 mmol/L 22 - 30 mmol/L [facility] Work Phone: Creatinine [Mass/Vol] 0.57 mg/dL 0.52 - 1.25 mg/dL [facility] Work Phone: EGFR IF NonAfrican Eritrean >90.0 >60 mL/min [facility] Work Phone: Comment on above: KDIGO guidelines pro vide the following GFR categories: Stage GFR(ml/min/1.73 m2) Terms G1 >=90 Normal or high G2 60-89 Mildly decreased* G3a 45-59 Mildly to moderately decreased G3b 30-44 Moderately to severely decreased G4 15-29 Severely decreased G5 <15 Kidney failure *Relative to young adult level. In the absence of evidence of kidney damage, neither GFR category G1 nor G2 fulfill the criteria for CKD. The CKD-EPI equation is validated in individuals 18 years of age and older. Currently the best equation for estimating glomerular filtration rate (GFR) from serum creatinine in children is the Bedside [place] equation. It is less accurate in patients with extremes of muscle mass, restriction of dietary protein, ingestion of creatine, extra-renal metabolism of creatinine, or treatment with medications that affect renal tubular creatinine secretion. GFR/1.73 sq M predicted among blacks MDRD (S/P/Bld) [Vol rate/Area] mL/min/{1.73_m2} >60 mL/min [facility] Work Phone: Glucose [Mass/Vol] 128 mg/dL High 70 - 100 mg/dL [facility] Work Phone: Interpretation and review of laboratory results Abnormal [facility] Work Phone: [phone] Potassium [Moles/Vol] 4.0 mmol/L 3.5 - 5.1 mmol/L [facility] Work Phone: [phone] Sodium [Moles/Vol] 138 mmol/L 135 - 145 mmol/L [facility] Work Phone: Urea nitrogen [Mass/Vol] 7 mg/dL 7 - 20 mg/dL [facility] Work Phone: C-Reactive Proteinon 021 CRP [Mass/Vol] 9.1 mg/L High 0.0-6.0 [facility] Comment on above: Result Comment: . Performed By: #### E SR, CRP2, PCAL, PT, BMP3, HEMDF, TSH5 #### [facility] [address] [place] [phone] CRP [Mass/Vol] 9.1 mg/L High 0.0 - 6.0 mg/L [facility] Work Phone: Comment on above: . Interpretation and review of laboratory results Abnormal [facility] Work Phone: Test Performed by [employer], [facility] [place], [place] [id number] [place], [place] [address] Work Phone: CBC Auto Differentialon - Absolute Baso # 0.0 10*3/uL 0.0 - 0.2 10*3/uL [facility] Work Phone: [phone] Absolute Neut # 13.4 10*3/uL High 1.8 - 7.0 10*3/uL [facility] Work Phone: [phone] Basophils/100 WBC (Bld) 0.2 % 0.0 - 2.0 % [employer] [employer] Work Phone: [phone] Eosinophils (Bld) [#/Vol] 0.0 10*3/uL 0.0 - 0.5 10*3/uL [facility] Work Phone: [phone] Eosinophils/100 WBC (Bld) 0.0 % Low 1.0 - 6.0 % [employer] Work Phone: [phone] Erythrocyte distribution width (RBC) [Ratio] 13.8 % 11.5 - 14.5 % [employer] Work Phone: [phone] Granulocytes/100 WBC (Bld) 91.5 % High 40.0 - 80.0 % [employer] Work Phone: [phone] Hematocrit (Bld) [Volume fraction] 37.9 % 35.0 - 47.0 % [employer] Work Phone: [phone] Hemoglobin (Bld) [Mass/Vol] 12.9 g/dL 11.7 - 16.0 g/dL [employer] Work Phone: [phone] Interpretation and review of laboratory results Abnormal [employer] Work Phone: [phone] Lymphocytes (Bld) [#/Vol] 1.1 10*3/uL 1.0 - 4.3 10*3/uL [employer] Work Phone: [phone] Lymphocytes/100 WBC (Bld) 7.7 % Low 20.0 - 40.0 % [employer] Work Phone: [phone] MCH (RBC) [Entitic mass] 29.6 pg 26.0 - 34.0 pg [employer] [employer] Work Phone: [phone] MCHC (RBC) [Mass/Vol] 34.0 % 32.0 - 36.0 % [employer] Work Phone: [phone] MCV (RBC) [Entitic vol] 86.9 fL 79.0 - 98.0 fL [employer] Work Phone: Monocytes (Bld) [#/Vol] 0.1 10*3/uL 0.0 - 0.8 10*3/uL [employer] [employer] Work Phone: Monocytes/100 WBC (Bld) 0.6 % Low 2.0 - 10.0 % [employer] Work Phone: Platelet mean volume (Bld) [Entitic vol] 7.9 fL 7.4 - 10.4 fL [employer] Work Phone: Platelets (Bld) [#/Vol] 303 10*3/uL 140 - 440 10*3/uL [employer] Work Phone: RBC (Bld) [#/Vol] 4.37 10*6/uL 3.80 - 5.2 0 10*6/uL [employer] Work Phone: WBC (Bld) [#/Vol] 14.7 10*3/uL High 3.6 - 10.7 10*3/uL [employer] Work Phone: Test Performed by [facility] [employer] [facility], [address] [place] [address] [employer] Work Phone: EKG 12 Leadon 12-06-2020 [facility] Test Date: 2020-12-06 Pat Name: Eb Hui Department: [facility] Room: [facility] Gender: F Accounts 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 Professional: KOURTNEY : 2000 Requested By: SABINO ORTEGA Order Number: [id number] Reading MD: Ba Cordon Measurements Intervals [place] Rate: 60 P: -12 [place]: 152 QRS: 0 QRSD: 89 T: 58 QT: 410 QTc: 410 Interpretive Statements Sinus rhythm Borderline T wave abnormalities Electronically Signed On 12-06-2020 10:01:11 EDT by Ba Cordon [employer] Work Phone: Rod, [facility] Incoming Cardiology Results From Ricardo/Sahil - 12/06/2020 10:02 AM EDT [facility] Test Date: 2020-12-06 Pat Name: Eb Hui Department: [id number] Room: 1557 Gender: F Accounts Payable Professional: KOURTNEY : 2000 Requested By: SABINO ORTEGA Order Number: [id number] Reading MD: Ba Cordon Measurements Intervals [place] Rate: 60 P: -12 [place]: 152 QRS: 0 QRSD: 89 T: 58 QT: 410 QTc: 410 Interpretive Statements Sinus rhythm Borderline T wave abnormalities Electronically Signed On 12-06-2020 10:01:11 EDT by Ba Cordon [employer] Work Phone: Hemogram w/ Autodiffon 12-06 Abs Baso Cnt 0.0 10*3/uL Normal 0.0-0.2 [facility] Comment on above: Performed By: #### E SR, CRP2, PCAL, PT, BMP3, HEMDF, TSH5 #### [address] Abs Neutrophile Cnt 13.4 10*3/uL High 1.8-7.0 [facility] Comment on above: Performed By: #### E SR, CRP2, PCAL, PT, BMP3, HEMDF, TSH5 #### [address] [phone] Basophils/100 WBC (Bld) 0.2 % Normal 0.0-2.0 [facility] Comment on above: Performed By: #### E SR, CRP2, PCAL, PT, BMP3, HEMDF, TSH5 #### [address] Eosinophils (Bld) [#/Vol] 0.0 10*3/uL Normal 0.0-0.5 [facility] Comment on above: Performed By: #### E SR, CRP2, PCAL, PT, BMP3, HEMDF, TSH5 #### [address] [phone] Eosinophils/100 WBC (Bld) 0.0 % Low 1.0-6.0 [facility] Comment on above: Performed By: #### E SR, CRP2, PCAL, PT, BMP3, HEMDF, TSH5 #### [address] Erythrocyte distribution width (RBC) [Ratio] 13.8 % Normal 11.5-14.5 [facility] Comment on above: Performed By: #### E SR, CRP2, PCAL, PT, BMP3, HEMDF, TSH5 #### [address] Granulocytes/100 WBC (Bld) 91.5 % High 40.0-80.0 [facility] Comment on above: Performed By: #### E SR, CRP2, PCAL, PT, BMP3, HEMDF, TSH5 #### [address] Hematocrit (Bld) [Volume fraction] 37.9 % Normal 35.0-47.0 [facility] Comment on above: Performed By: #### E SR, CRP2, PCAL, PT, BMP3, HEMDF, TSH5 #### [address] Hemoglobin (Bld) [Mass/Vol] 12.9 g/dL Normal 11.7-16.0 [facility] Comment on above: Performed By: #### E SR, CRP2, PCAL, PT, BMP3, HEMDF, TSH5 #### [address] Lymphocytes (Bld) [#/Vol] 1.1 10*3/uL Normal 1.0-4.3 [facility] Comment on above: Performed By: #### E SR, CRP2, PCAL, PT, BMP3, HEMDF, TSH5 #### [address] Lymphocytes/100 WBC (Bld) 7.7 % Low 20.0-40.0 [facility] Comment on above: Performed By: #### E SR, CRP2, PCAL, PT, BMP3, HEMDF, TSH5 #### [address] MCH (RBC) [Entitic mass] 29.6 pg Normal 26.0-34.0 [facility] Comment on above: Performed By: #### E SR, CRP2, PCAL, PT, BMP3, HEMDF, TSH5 #### [address] MCHC (RBC) [Mass/Vol] 34.0 % Normal 32.0-36.0 [facility] Comment on above: Performed By: #### E SR, CRP2, PCAL, PT, BMP3, HEMDF, TSH5 #### [address] MCV (RBC) [Entitic vol] 86.9 fL Normal 79.0-98.0 [facility] Comment on above: Performed By: #### E SR, CRP2, PCAL, PT, BMP3, HEMDF, TSH5 #### [address] Monocytes (Bld) [#/Vol] 0.1 10*3/uL Normal 0.0-0.8 [facility] Comment on above: Performed By: #### E SR, CRP2, PCAL, PT, BMP3, HEMDF, TSH5 #### [address] Monocytes/100 WBC (Bld) 0.6 % Low 2.0-10.0 [facility] Comment on above: Performed By: #### E SR, CRP2, PCAL, PT, BMP3, HEMDF, TSH5 #### [address] Platelet mean volume (Bld) [Entitic vol] 7.9 fL Normal 7.4-10.4 [facility] Comment on above: Performed By: #### E SR, CRP2, PCAL, PT, BMP3, HEMDF, TSH5 #### [address] Platelets (Bld) [#/Vol] 303 10*3/uL Normal 140-440 [facility] Comment on above: Performed By: #### E SR, CRP2, PCAL, PT, BMP3, HEMDF, TSH5 #### [address] RBC (Bld) [#/Vol] 4.37 10*6/uL Normal 3.80-5.20 [facility] Comment on above: Performed By: #### E SR, CRP2, PCAL, PT, BMP3, HEMDF, TSH5 #### [address] WBC (Bld) [#/Vol] 14.7 10*3/uL High 3.6-10.7 [facility] Comment on above: Performed By: #### E SR, CRP2, PCAL, PT, BMP3, HEMDF, TSH5 #### [address] Otheron 12-06-2020 Test Performed by [facility], [address] [place] [address] Work Phone: Procalcitoninon 12-06-2020 Procalcitonin < 0.10 Normal <0.10 [facility] Comment on above: Performed By: #### E SR, CRP2, PCAL, PT, BMP3, HEMDF, TSH5 #### [address] Procalcitonin <0.10 <0.10 ng/mL [facility] Work Phone: Sodium [Moles/Vol] See Below [facility] Work Phone: Comment on above: PCT <0.50 = Low risk of severe sepsis and/or septic shock. PCT >2.00 = High risk of severe sepsis and/or septic shock. Test Performed by [facility], [address] [place] [address] Work Phone: Interpretation See Below Normal [facility] Comment on above: Result Comment: PCT <0.50 = Low risk of severe sepsis and/or septic shock. PCT >2.00 = High risk of severe sepsis and/or septic shock. Performed By: #### E SR, CRP2, PCAL, PT, BMP3, HEMDF, TSH5 #### [address] [phone] Prothrombin Timeon INR Coag (PPP) [Relative time] 1.0 Normal 0.9-1.1 [facility] Comment on above: Result Comment: Logan mmended Anticoagulant Therapy: SEE BELOW ----- INR of 2.0 - 3.0 : - Prophylaxis of Venous Thrombosis (high-risk surgery) - Treatment of Venous Thrombosis - Treatment of Pulmonary Embolism (Includes tissue heart valves, Acute Myocardial Infarction to prevent systemic embolism, Valvular Heart Disease, and Atrial Fibrillation) ----- INR of 2.5 - 3.5 : - Mechanical Prosthetic Valves (high risk) - If oral anticoagulant therapy is used to prevent Myocardial Infarction Performed By: #### E SR, CRP2, PCAL, PT, BMP3, HEMDF, TSH5 #### [address] [phone] PT Coag (PPP) [Time] 11.3 s Normal 9.0-12.0 [facility] Comment on above: Result Comment: . Performed By: #### E SR, CRP2, PCAL, PT, BMP3, HEMDF, TSH5 #### [address] [phone] Protime-INRon 12-06-2020 INR Coag (PPP) [Relative time] 1.0 {INR} [facility] Work Phone: Comment on above: Recommended Anticoag ulant Therapy: SEE BELOW ----- INR of 2.0 - 3.0 : - Prophylaxis of Venous Thrombosis (high-risk surgery) - Treatment of Venous Thrombosis - Treatment of Pulmonary Embolism (Includes tissue heart valves, Acute Myocardial Infarction to prevent systemic embolism, Valvular Heart Disease, and Atrial Fibrillation) ----- INR of 2.5 - 3.5 : - Mechanical Prosthetic Valves (high risk) - If oral anticoagulant therapy is used to prevent Myocardial Infarction PT Coag (PPP) [Time] 11.3 s 9.0 - 12.0 s [facility] Work Phone: Comment on above: . Test Performed by [facility] [employer], [address] [place] [id number] [employer] Work Phone: Sed Rateon 12-06-2020 Sed Rate 12 mm/h Normal 0-20 [facility] Comment on above: Performed By: #### E SR, CRP2, PCAL, PT, BMP3, HEMDF, TSH5 #### [facility] [address] [place] [address] Sedimentation Rateon 021 Sed Rate 12 mm/h 0 - 20 mm/h [facility] Work Phone: TSH without Reflexon 021 Interpretation and review of laboratory results Abnormal [facility] Work Phone: TSH Qn 0.192 u[IU]/mL Low 0.465 - 4.680 u[IU]/mL [facility] Work Phone: Test Performed by [employer], [address] [place] [address] [employer] Work Phone: Thyroid Stim. Hormoneon 11-21 Thyroid Stim. Hormone 0.192 u[IU]/mL Low 0.465-4.680 [facility] Comment on above: Performed By: #### E SR, CRP2, PCAL, PT, BMP3, HEMDF, TSH5 #### [facility] [address] [place] [phone] PROGRESSon 07-11-2019 PROGRESS HNO ID: [id number] Author: Rodo Hope Service: Obstetrics Author Type: Physician Type: Progress Notes Filed: 07/11/2019 10:17 AM Note Text: OBSTETRICS PROGRESS NOTE SERVICE DATE: July 11, 2019 SERVICE TIME: 4:59 AM ASSESSMENT: 19 year old female who is Day #2 status post Vaginal, Spontaneous delivery with male . PLAN: 1. Routine care 2. Preeclampsia with features - s/p Magnesium - BP's mild range - Asymptomatic 3. Anemia - Hgb 9.1 on admission - Continue PO iron 4. Pneumonia - Continue Azithromycin and Amoxicillin (Day 4/5) 5. Teen - Care management on consult 6. Dispo - d/c per attending SUBJECTIVE: Patient has no current complaints. Tolerating PO intake. Urinating without difficulty. Pain well controlled with current regimen. Lochia decreasing. Ambulating without difficulty. Denies TREVIÑO, vision changes, CP/SOB, RUQ or epigastric pain OBJECTIVE: PHYSICAL EXAM: Heart: RR, S1, S2, no yovani, rub, or murmur appreciated Lungs: clear to auscultation Abdomen: Soft Fundus firm below umbilicus Non-distended Extremities: No calf tenderness and Edema equal bilaterally LAST VITALS: Pulse BP Resp O2 Sat Temp Pain 70 145/95 18 96 % 36.4 ?C (97.5 ?F) 0(sleeping) Avg Min Max Vitals (last 12 hours) Flowsheet Row Name Average Min Max BP: Systolic 138.33 134 145 BP: Diastolic 94.33 90 98 Temp 36.7 ?C (97.97 ?F) 36.4 ?C (97.5 ?F) 36.8 ?C (98.2 ?F) Pulse 70.67 63 79 Resp 17.33 16 18 SpO2 96.33 % 95 % 98 % HT/WT/BMI: Height Weight BMI 170.2 cm (5' 7) 92.1 kg (203 lb) 31.79 LABS ABO/RH: 02/12/2019: A POSITIVE 07/08/2019: A; Positive RUBELLA: 02/12/2019: 3.41 Index Value; immune HANDH: Hematocrit (%) Date Value 07/08/2019 29.0 HGB (g/dL) Date Value 07/08/2019 9.1 Diagnostic tests reviewed for today's visit: No new labs SIGNATURE: Jorje Toledo DO PATIENT NAME: Eb Hui DATE: July 11, 2019 TIME: 4:59 AM PPD#2 s/p preeclampsia with severe features S/p magnesium sulfate x 24 hour BP's mildly elevated; no need for treatment Patient feels well, no symptoms BP - 150 / 102 this am, repeat was 130 / 90 130-140's / 90's yesterday Abdomen - FF at umbilicus Ext - + edema, no calf tenderness Doing well Will discharge home today F/u this week in office in [employer] for BP check [facility] STAFF PHYSICIAN NOTE OF PERSONAL INVOLVEMENT IN CARE I have reviewed the progress note obtained and documented by the resident and I personally participated in the knapp components. I have discussed the case and management of the patient's care. The following comments revise or confirm relevant knapp components of their note. IMPRESSION: This is a 19 year old female who presents with preeclampsia - s/p IOL PLAN: Discharge home Plan of care discussed with Patient and Family/Significant Other: partner CARE COORDINATION: Discharge Management: I personally spent less than 30 minutes involved in the discharge management of this patient SIGNATURE: Rodo Hope MD PAGER: [phone] DATE of SERVICE: July 11, 2019 TIME of SERVICE: 10:16 AM Rodo Hope MD [facility] ANES Philip 07-10-2019 ANES POST HNO ID: [id number] Author: Leif Zelaya Service: Anesthesiology Author Type: Nurse Flatbed Driver Type: Anesthesia PostOp Filed: 07/10/2019 7:52 AM Note Text: POST ANESTHESIA EVALUATION NOTE SERVICE DATE: 07/10/2019 SERVICE TIME: 751 : 2000 Vitals: 07/09/19199907/09/19233907/10/1932407/10/19719 Temp: 36.6 ?C (97.9 ?F) 36.8 ?C (98.2 ?F) 36.8 ?C (98.2 ?F) 36.5 ?C (97.7 ?F) 07/09/19199907/09/19233907/10/1932407/10/19719 BP: 136/95 138/103 132/94 135/99 07/09/19199907/09/19233907/10/1932407/10/19719 Pulse: 80 70 79 65 07/09/19199907/09/19233907/10/1932407/10/19719 Resp: 18 07/09/19199907/09/19233907/10/1932407/10/19719 SpO2: 98% 96% 98% 95% Validated Vital Signs: Yes POST ANES STATUS: No apparent anesthetic complications. The patient is appropriately hydrated with stable respiratory and cardiovascular status. Patient has safe and adequate airway control. The patient has appropriate pain relief and no significant post operative nausea or vomiting. The patient has achieved baseline mental status. Intra-Operative Events: No Significant Anesthesia Events Further assessment by Anesthesia Service: None Other Remarks: SIGNATURE: Andres Zelaya APRN.CRNA PATIENT NAME: Eb Hui DATE: July 10, 2019 TIME: 7:51 AM PAGER/CONTACT #: Marisol [facility] PROGRESSon 07-10-2019 PROGRESS HNO ID: [id number] Author: George Nguyễn Jr. Service: ? Author Type: Physician Type: Progress Notes Filed: 07/10/2019 10:32 AM Note Text: OBSTETRICS PROGRESS NOTE SERVICE DATE: July 10, 2019 SERVICE TIME: 9:15 AM ASSESSMENT: 19 year old female who is Day #1 status post Vaginal, Spontaneous delivery with male . Eb is doing better her vision is much better since the magnesium sulfate has stopped I explained to her that was a normal side effect bleeding is decreasing, pain is controlled, ambulating well, lochia is decreasing, passing flatus, blood pressures are running in the 130s to 140s not on medication I expected to go up since she is going to be off the magnesium sulfate we'll need to treat if her blood pressures get above 150 systolic PLAN: Routine care. Encourage patient to use pain meds. . Continue to watch her blood pressures if it gets above 150 we'll need to start antihypertensives given that she had deliver 7 weeks early I am hesitant to send her home on day 2 and would consider watching her until day 3 SUBJECTIVE: Patient has no current complaints. Tolerating PO intake. Urinating without difficulty. Passing flatus. Pain well controlled with current regimen. Lochia decreasing. Ambulating without difficulty. OBJECTIVE: PHYSICAL EXAM: Heart: RR, S1, S2 Lungs: normal pulmonary exam and clear to auscultation Abdomen: Soft Appropriately tender to palpation Bowel sounds present Fundus firm below umbilicus Non-distended Extremities: No calf tenderness and Edema equal bilaterally LAST VITALS: Pulse BP Resp O2 Sat Temp Pain 65 135/99 18 95 % 36.5 ?C (97.7 ?F) 2 HT/WT/BMI: Height Weight BMI 170.2 cm (5' 7) 92.1 kg (203 lb) 31.79 LABS Diagnostic tests reviewed for today's visit: Most recent labs SIGNATURE: George Nguyễn Jr, MD PATIENT NAME: Eb Hui DATE: July 10, 2019 TIME: 10:29 AM Normal [facility] PROGRESS HNO ID: [id number] Author: Nancy Gonzales Service: Obstetrics Author Type: Resident Type: Progress Notes Filed: 07/10/2019 6:41 AM Note Text: OBSTETRICS PROGRESS NOTE SERVICE DATE: July 10, 2019 SERVICE TIME: 6:29 AM ASSESSMENT: 19 year old female who is Day #1 status post Vaginal, Spontaneous delivery with male . PLAN: 1. Routine care 2. Pre-eclampsia with features -BP normal to high mild since delivery -Magnesium off at 0800 this morning -Asymptomatic -Monitor BP once off mag, consider adding meds if high mild -I/O: 1647/4400 3. Anemia - on PO iron, Hgb 9.1 on admission 4. Pneumonia - Continue Azithromycin and Amoxicillin for total of 5 days 5. Teen - care management consulted, appreciate recs 6. Dispo - d/c per attending SUBJECTIVE: Patient has no current complaints. Tolerating PO intake. Urinating without difficulty. Passing flatus. Pain well controlled with current regimen. Lochia decreasing. Ambulating without difficulty. Endorses some blurry vision since she has been on magnesium. Denies treviño, cp, sob or ruq pain. OBJECTIVE: PHYSICAL EXAM: Heart: RR, S1, S2 Lungs: clear to auscultation Abdomen: Soft Bowel sounds present Fundus firm below umbilicus Non-distended Extremities: No calf tenderness and Edema equal bilaterally LAST VITALS: Pulse BP Resp O2 Sat Temp Pain 79 132/94 18 98 % 36.8 ?C (98.2 ?F) 2 Avg Min Max Vitals (last 12 hours) Flowsheet Row Name Average Min Max BP: Systolic 135.33 132 138 BP: Diastolic 97.33 94 103 Temp 36.7 ?C (98.1 ?F) 36.6 ?C (97.9 ?F) 36.8 ?C (98.2 ?F) Pulse 76.33 70 80 Resp 18 18 18 SpO2 97.33 % 96 % 98 % HT/WT/BMI: Height Weight BMI 170.2 cm (5' 7) 92.1 kg (203 lb) 31.79 LABS ABO/RH: 02/12/2019: A POSITIVE 07/08/2019: A; Positive RUBELLA: 02/12/2019: 3.41 Index Value; immune HANDH: Hematocrit (%) Date Value 07/08/2019 29.0 HGB (g/dL) Date Value 07/08/2019 9.1 Diagnostic tests reviewed for today's visit: Most recent labs and imaging results. SIGNATURE: Nancy Gonzales DO PATIENT NAME: Eb Hui DATE: July 10, 2019 TIME: 6:29 AM [facility] ANES INTRAOPon 07-09-2019 ANES INTRAOP HNO ID: [id number] Author: Tay Leung Service: Anesthesiology Author Type: Nurse Flatbed Driver Type: Anesthesia IntraOp Filed: 07/09/2019 8:24 PM Note Text: ANALGESIA PROGRESS RECORD CATHETER REMOVAL/END OF CASE SERVICE DATE: 07/09/2019 REMOVAL DATE AND TIME: 07/09/2019 at 0835 DELIVERY DATE AND TIME: 07/09/2019 at 8:03 AM CATHETER REMOVAL: Catheter Removal: Epidural removed by Labor and optical dispenser. Please see nursing notes. SIGNATURE: Tay Leung APRN.CRNA PATIENT NAME: Eb Hui DATE: July 09, 2019 TIME: 8:24 PM PAGER/CONTACT #: [facility] ANES INTRAOP HNO ID: [id number] Author: Marcos Mayes Service: Anesthesiology Author Type: Nurse Flatbed Driver Type: Anesthesia IntraOp Filed: 07/09/2019 6:57 AM Note Text: ANESTHESIA PROCEDURE: LABOR ANALGESIA PROGRESS NOTE SERVICE DATE: 05/15/2018 SERVICE TIME: 0647 Called to assess patient for complaint of: pain Intervention consisted of: bolus given Time Amt Rate/Bolus Medication Pulse B.P. Pain Score 0647 6 cc bolus dose Clinician bolus 82 7/10 After intervention, patient reported right side improved with minimal relief on left. patient was unable to stay on left side d/t tracing. [facility] CASE MANAGEMon 07-09-2019 CASE MANAGEM HNO ID: [id number] Author: TRINA Gu (Lisw) Service: Social Work Author Type: Aircraft Pneudraulic Systems Mechanic Type: Care Mgt Progress Note Filed: 07/09/2019 4:36 PM Note Text: CARE MANAGEMENT PROGRESS NOTE SERVICE DATE: 07/09/2019 SERVICE TIME: 4:24 PM LOS: 1 day Consult for delivery for teen mother Met with patient and FOB sleeping in room. Patient lives with her parents and FOB is her boyfriend. He and his parents and her parents and grandparents are very supportive.Patient is currently not working.She has script coverage and pharmacies at [facility] in [place]. Patient states she needs to find a senior sharepoint developer yet. She denies any concerns for homegoing.Has history of depression and anxiety. Currently not in any counseling and was prescribed antidepressants in past but didn't like how they made her feel and this was way before .Discussed symptoms of depression in light of post depression and patient agrees she will call her PCP if this occurs. Patient is already active with [facility] and she has ordered a car seat to be delivered soon.Baby currently in [facility] so does not need stat.Patient is prepared for baby with clothing carseat etc. SIGNATURE: TRINA Gu PATIENT NAME: Eb Hui DATE: July 09, 2019 TIME: 4:23 PM PAGER/CONTACT #: [phone] [facility] LD NOTEon 07-09-2019 LD NOTE HNO ID: [id number] Author: Nancy Gonzales Service: Obstetrics Author Type: Resident Type: LANDD Delivery Note Filed: 07/09/2019 8:37 AM Note Text: -- Attestation signed by Nathalie Alas at 07/09/2019 9:09 AM I was present for the entire procedure and agree with above Nathalie Alas MD -- OBSTETRICS DELIVERY SUMMARY - VAGINAL DELIVERY Gestational Age at Delivery: 33w1d Service Date: 07/09/2019 Service Time: 8:32 AM Yousuf Hui [[id number]] Labor Events Rupture Date: 07/09/19 Rupture Time: 314 Rupture Type: AROM Fluid Color: Clear Induction: Yes Induction Method: Misoprostol, Cervical Ripening Balloon (CRB), Oxytocin, AROM Episiotomy/Laceration: Episiotomy: None Lacerations: 1st, Labial Perineal Repair Completed: Yes Sutures Used: 3-0 Rapid Absorbable Labial Lacerations: Right Labial Repair Completed: Yes Sutures Used: 3-0 Rapid Absorbable Estimated Blood Loss (mL): Estimated Blood Loss (mL): 400 Date and Time of : Date of : 07/09/19 Time of : 802 Delivery Information: Primary Reason for Delivery : Hypertension Additional Clinicial Indicator(s) for delivery: N/A Delivery type: Vaginal, Spontaneous Presentation: Vertex Shoulder Dystocia Present: No Vacuum Used: No Forceps Used: No Presentation AND Position Presentation: Vertex Position: OA Cord: Complications: None Delayed Cord Clamping: Greater than 60 sec Placenta: Delivered: 07/09/2019 8:07 AM Removal: Spontaneous Appearance: Intact Anesthesia: Method: Epidural Measurements, Apgars: One Minute : 6 Five Minute : 8 Code [place] Called: Yes Type of Code [place] Team Needed: Planned Resuscitation Needed: Yes, see Resuscitation Record Clinical Course: ? Eb Hui is a 19 year old year old G1now P0101 female who presented to [facility] with Estimated Date of Delivery: 08/26/19 at 33w1d for induction of labor for pre-eclampsia with severe features. Her course was complicated by pre-eclampsia with features, her features being RUQ pain. She had isolated severe range BP but did not require acute antihypertensive treatment. The patient was started on Magnesium and her induction was started. She received a course of betamethasone. Her was otherwise complicated by it being a teen and gestational anemia. The patient was GBS negative. ? Labor Course: ? At the time of presentation the patient was found to be closed. She received three total cytotecs and a cook catheter for induction. She received and epidural for maternal analgesia. Amniotomy was performed for clear fluid. She progressed to complete cervical dilation with the vertex at +1 station. She then began to push. ? As the vertex was , the patient was prepped and draped in a normal sterile fashion in the dorsal lithotomy position. The vertex delivered over an intact perineum from the occiput anterior position which restituted to the maternal right. After delivery of the head, the anterior and posterior shoulders were then delivered without difficulty followed by the remainder of the 's body. The infant was crying spontaneously. Delayed cord clamping was performed for one minute. The cord was then doubly clamped and cut and the was passed above for skin to skin. The placenta delivered spontaneously. pitocin was then started. ? Vaginal exploration revealed a first degree and left labial laceration that was repaired in the usual fashion with 3-0 Vicryl Rapide. Hemostatic lacerations were present cephalad to the urethra and on the right labia. Cervical exploration revealed no lacerations. Excellent hemostasis was noted. The patient tolerated the procedure well without complications. All needle, sponge and instrument counts were correct x2. A digital sweep of the vaginal canal was performed by the Resident and it was ascertained that no instruments or other foreign bodies are retained within the cavity. Sponge, lap, and needle counts were correct times two. Mother and baby are stable. Baby is being evaluated by NICU. SIGNATURE: Nancy Gonzales DO PATIENT NAME: Eb Hui DATE: July 09, 2019 TIME: 8:32 AM [facility] NURSING PROGon 07-09-2019 NURSING PROG HNO ID: [id number] Author: Kristy NegreteRn) PATIENCE Marie Service: Nursing Author Type: Registered Nurse Type: Nursing Progress Note Filed: 07/09/2019 10:44 AM Note Text: Patient anterior lip per Dr. Alas Patient transferred to OR 2 for delivery, see delivery summary. [facility] PROCEDUREon 07-09-2019 PROCEDURE HNO ID: [id number] Author: Marcos Mayes Service: Anesthesiology Author Type: Nurse Flatbed Driver Type: Procedures Filed: 07/09/2019 5:27 AM Note Text: OB ANESTHESIA PROCEDURE: EPIDURAL LABOR PCEA ANALGESIA PROCEDURE DATE: 07/09/2019 PROCEDURE START TIME: 5:11 AM The patient was placed in a sitting position. Timeout was performed and informed consent confirmed (see nurse's documentation). Using sterile technique, the patient's back was prepped and draped. Skin site was infiltrated with local anesthetic. Beginning Pain Score: 7 out of 10 VItals: Last Pulse 07/09/19 : 81 Last BP 07/09/19 : 141/92 Needle: 17 gauge Tuohy Depth of Needle: 7 cm Depth of Catheter at Skin: 12 cm Cm of Catheter in Epidural Space: 5 cm Interspace: approximately L4-L5 Number of Attempts: 1 Wet Tap Complication: No Dural Puncture Epidural: No Loss of Resistance: Saline Parasthesias: None Time Amt Medication Pulse B.P. Comments Catheter TEST 0520 3 cc 1.5% Lidocaine with 1:200,000 Epinephrine 70 137/91 Negative Catheter BOLUS 0524 10 cc 0.0625% Bupivacaine and 2 mcg/ml Fentanyl plus 1.25 mcg/ml Epinephrine INFUSION 0526 Continous Infusion 10 mL/hr PCEA: Bolus 4 mL, Lockout 15 mins 0.0625% Bupivacaine and 2 mcg/mL Fentanyl plus 1.25 mcg/ml Epinephrine 92 137/90 Patient comfortable able to flex knees Patient comfortable able to move legs Placed By agd/optical mechanic Pain Score After Treatment: 5 out of 10 See nurses' documentation for additional vitals. SIGNATURE: Marcos Mayes APRN.CRNA PATIENT NAME: Eb Hui DATE: July 09, 2019 TIME: 5:11 AM PAGER/CONTACT #: [facility] PROGRESSon 07-09-2019 PROGRESS HNO ID: [id number] Author: George Nguyễn Jr. Service: ? Author Type: Physician Type: Progress Notes Filed: 07/09/2019 10:15 AM Note Text: OBSTETRICS PROGRESS NOTE SERVICE DATE: July 09, 2019 SERVICE TIME: 9 AM ASSESSMENT: 19 year old female who is Day #0 status post Vaginal, Spontaneous delivery with male . The patient is doing okay she has a little bit foggy from the magnesium sulfate lochia is decreasing PLAN: Routine care. Encourage patient to use pain meds. We'll continue the magnesium sulfate for 24 hours postdelivery SUBJECTIVE: Patient has no current complaints. Tolerating PO intake. Pain well controlled with current regimen. Lochia decreasing. OBJECTIVE: PHYSICAL EXAM: Heart: RR, S1, S2 Lungs: normal pulmonary exam and clear to auscultation Abdomen: Soft Appropriately tender to palpation Bowel sounds present Fundus firm below umbilicus Non-distended Extremities: No calf tenderness, Edema equal bilaterally and No cords LAST VITALS: Pulse BP Resp O2 Sat Temp Pain 68 146/96 18 100 % 36.2 ?C (97.2 ?F) 0 HT/WT/BMI: Height Weight BMI 170.2 cm (5' 7) 92.1 kg (203 lb) 31.79 LABS Diagnostic tests reviewed for today's visit: Most recent labs and imaging results. SIGNATURE: George Nguyễn Jr, MD PATIENT NAME: Eb Hui DATE: July 09, 2019 TIME: 10:14 AM [facility] PROGRESS HNO ID: [id number] Author: Sarah Ramirez Service: Obstetrics Author Type: Resident Type: Progress Notes Filed: 07/09/2019 7:27 AM Note Text: In to evaluate for a cat II FHT with concern for recurrent late decels. SVE now 7/80/-2. IUPC placed secondary to difficulty tracing contractions and pitocin running at 32 mU/min. The patient is making cervical change. Pt repositioned. Pt still getting comfortable with epidural. FHT: 120/min to mod/+accels/+intermittent late decels, +intermittent moderate variable decels [place]: q1-3 mins Cat II FHT 19 yo @ 33+1 IOL Pre-eclampsia with features Cat II FHT -DC pitocin. Restart at 30 minutes cat I FHT. -Pt making cervical change -IUPC placed without difficulty. Dr. Alas updated. Cont to monitor. Day team updated. Sarah Ramirez, PGY-3 Obstetrics and Gynecology Pager 07/09/2019 7:27 AM [facility] PROGRESS HNO ID: [id number] Author: Jorje Toledo DO Service: Obstetrics Author Type: Resident Type: Progress Notes Filed: 07/09/2019 6:12 AM Note Text: Recently received epidural, getting comfortable. BP 116/59 Pulse 83 Temp 36.9 ?C (98.4 ?F) (Oral) Resp 16 Ht 170.2 cm (5' 7) Wt 92.1 kg (203 lb) SpO2 96% BMI 31.79 kg/m? FHT: 125/mod variability/+ accels/intermittent mild variable, intermittent late decels [place]: q3-5min Active Hospital Problems Diagnosis Date Noted - Encounter for induction of labor 07/08/2019 Overview Note: - GBS neg - s/p cytotec x3, CC - Pitocin per protocol - AROM @ 0315 for clear fluid - Epi in - Severe preeclampsia, third trimester 07/08/2019 Overview Note: - Features being RUQ pain - BPs mild to severe on admission - CBC/CMP wnl on admission - Magnesium started at [facility], currently running 2g/hr - Continue to monitor - Prematurity 07/08/2019 Overview Note: - s/p BMZ 07/06 and 07/07 - Growth at 32w6d 4lb 9oz 42%ile - NICU aware, plan to deliver in the OR - Scoliosis 07/08/2019 Overview Note: - Anesthesia to evaluate for epidural - History of MRSA infection 07/08/2019 Overview Note: - 3 years ago after exposure at [facility] - Vancomycin if for - Pneumonia affecting 07/08/2019 Overview Note: - Productive cough with abnormal CXR findings - Amoxicillin and Azithromycin x5 days - PICC (peripherally inserted central catheter) in place 07/08/2019 Overview Note: - Placed for difficulty IV access - Anemia during in third trimester 06/19/2019 Overview Note: - Taking PO iron intermittently - Admission hgb 9.1 SIGNATURE: Jorje Toledo DO PATIENT NAME: Eb Hui DATE: 07/09/2019 TIME: 6:00 AM PAGER: [phone] [facility] PROGRESS HNO ID: [id number] Author: Jorje Toledo DO Service: Obstetrics Author Type: Resident Type: Progress Notes Filed: 07/09/2019 5:15 AM Note Text: Patient desiring epidural at this time. BP 141/92 Pulse 81 Temp 36.9 ?C (98.4 ?F) (Oral) Resp 16 Ht 170.2 cm (5' 7) Wt 92.1 kg (203 lb) SpO2 96% BMI 31.79 kg/m? FHT: 130/min to mod variability/+ accels/intermittent mild variable decels [place]: q2-4min Active Hospital Problems Diagnosis Date Noted - Encounter for induction of labor 07/08/2019 Overview Note: - GBS neg - s/p cytotec x3, CC - Pitocin per protocol - AROM @ 0315 for clear fluid - Epi prn - Severe preeclampsia, third trimester 07/08/2019 Overview Note: - Features being RUQ pain - BPs mild to severe on admission - CBC/CMP wnl on admission - Magnesium started at [employer], currently running 2g/hr - Continue to monitor - Prematurity 07/08/2019 Overview Note: - s/p BMZ 07/06 and 07/07 - Growth at 32w6d 4lb 9oz 42%ile - NICU aware, plan to deliver in the OR - Scoliosis 07/08/2019 Overview Note: - Anesthesia to evaluate for epidural - History of MRSA infection 07/08/2019 Overview Note: - 3 years ago after exposure at [employer] - Vancomycin if for - Pneumonia affecting 07/08/2019 Overview Note: - Productive cough with abnormal CXR findings - Amoxicillin and Azithromycin x5 days - PICC (peripherally inserted central catheter) in place 07/08/2019 Overview Note: - Placed for difficulty IV access - Anemia during in third trimester 06/19/2019 Overview Note: - Taking PO iron intermittently - Admission hgb 9.1 SIGNATURE: Jorje Toledo DO PATIENT NAME: Eb Hui DATE: 07/09/2019 TIME: 5:14 AM PAGER: [phone] [facility] PROGRESS HNO ID: [id number] Author: Jorje Toledo DO Service: Obstetrics Author Type: Resident Type: Progress Notes Filed: 07/09/2019 3:25 AM Note Text: Patient comfortable. AROM performed for large amount of clear fluid. Patient tolerated well. BP 131/88 Pulse 73 Temp 36.9 ?C (98.4 ?F) (Oral) Resp 16 Ht 170.2 cm (5' 7) Wt 92.1 kg (203 lb) SpO2 95% BMI 31.79 kg/m? FHT: 130/mod variability/+ accels/- decels [place]: q2-4min Active Hospital Problems Diagnosis Date Noted - Encounter for induction of labor 07/08/2019 Overview Note: - GBS neg - s/p cytotec x3, CC - Pitocin per protocol - AROM @ 0315 for clear fluid - Epi prn - Severe preeclampsia, third trimester 07/08/2019 Overview Note: - Features being RUQ pain - BPs mild to severe on admission - CBC/CMP wnl on admission - Magnesium started at [facility], currently running 2g/hr - Continue to monitor - Prematurity 07/08/2019 Overview Note: - s/p BMZ 07/06 and 07/07 - Growth at 32w6d 4lb 9oz 42%ile - NICU aware, plan to deliver in the OR - Scoliosis 07/08/2019 Overview Note: - Anesthesia to evaluate for epidural - History of MRSA infection 07/08/2019 Overview Note: - 3 years ago after exposure at [facility] - Vancomycin if for - Pneumonia affecting 07/08/2019 Overview Note: - Productive cough with abnormal CXR findings - Amoxicillin and Azithromycin x5 days - PICC (peripherally inserted central catheter) in place 07/08/2019 Overview Note: - Placed for difficulty IV access - Anemia during in third trimester 06/19/2019 Overview Note: - Taking PO iron intermittently - Admission hgb 9.1 SIGNATURE: Jorje Toledo DO PATIENT NAME: Eb Hui DATE: 07/09/2019 TIME: 3:24 AM PAGER: [phone] [facility] PROGRESS HNO ID: [id number] Author: Jorje Toledo DO Service: Obstetrics Author Type: Resident Type: Progress Notes Filed: 07/09/2019 1:11 AM Note Text: Patient overall comfortable. BP 128/83 Pulse 71 Temp 36.9 ?C (98.4 ?F) (Oral) Resp 16 Ht 170.2 cm (5' 7) Wt 92.1 kg (203 lb) SpO2 96% BMI 31.79 kg/m? FHT: 135/min to mod variability/+ accels/isolated late decels [place]: q2-4min Active Hospital Problems Diagnosis Date Noted - Encounter for induction of labor 07/08/2019 Overview Note: - GBS neg - s/p cytotec x3, CC - Pitocin per protocol - AROM prn - Epi prn - Severe preeclampsia, third trimester 07/08/2019 Overview Note: - Features being RUQ pain - BPs mild to severe on admission - CBC/CMP wnl on admission - Magnesium started at [facility], currently running 2g/hr - Continue to monitor - Prematurity 07/08/2019 Overview Note: - s/p BMZ 07/06 and 07/07 - Growth at 32w6d 4lb 9oz 42%ile - NICU aware, plan to deliver in the OR - Scoliosis 07/08/2019 Overview Note: - Anesthesia to evaluate for epidural - History of MRSA infection 07/08/2019 Overview Note: - 3 years ago after exposure at [employer] - Vancomycin if for - Pneumonia affecting 07/08/2019 Overview Note: - Productive cough with abnormal CXR findings - Amoxicillin and Azithromycin x5 days - PICC (peripherally inserted central catheter) in place 07/08/2019 Overview Note: - Placed for difficulty IV access - Anemia during in third trimester 06/19/2019 Overview Note: - Taking PO iron intermittently - Admission hgb 9.1 SIGNATURE: Jorje Toledo DO PATIENT NAME: Eb Hui DATE: 07/09/2019 TIME: 1:10 AM PAGER: [phone] [facility] PROGRESS HNO ID: [id number] Author: Jorje Toledo DO Service: Obstetrics Author Type: Resident Type: Progress Notes Filed: 07/08/2019 10:18 PM Note Text: Patient overall comfortable. BP 135/88 Pulse 80 Temp 37.2 ?C (99 ?F) (Temporal) Resp 16 Ht 170.2 cm (5' 7) Wt 92.1 kg (203 lb) SpO2 96% BMI 31.79 kg/m? FHT: 130/min to mod variability/+ accels/- decels [place]: q1-5min Active Hospital Problems Diagnosis Date Noted - Encounter for induction of labor 07/08/2019 Overview Note: - GBS neg - s/p cytotec x3, CC - Pitocin per protocol - AROM prn - Epi prn - Severe preeclampsia, third trimester 07/08/2019 Overview Note: - Features being RUQ pain - BPs mild to severe on admission - CBC/CMP wnl on admission - Magnesium started at [facility], currently running 2g/hr - Continue to monitor - Prematurity 07/08/2019 Overview Note: - s/p BMZ 07/06 and 07/07 - Growth at 32w6d 4lb 9oz 42%ile - NICU aware, plan to deliver in the OR - Scoliosis 07/08/2019 Overview Note: - Anesthesia to evaluate for epidural - History of MRSA infection 07/08/2019 Overview Note: - 3 years ago after exposure at [facility] - Vancomycin if for - Pneumonia affecting 07/08/2019 Overview Note: - Productive cough with abnormal CXR findings - Amoxicillin and Azithromycin x5 days - PICC (peripherally inserted central catheter) in place 07/08/2019 Overview Note: - Placed for difficulty IV access - Anemia during in third trimester 06/19/2019 Overview Note: - Taking PO iron intermittently - Admission hgb 9.1 SIGNATURE: Jorje Toledo DO PATIENT NAME: Eb Hui DATE: 07/08/2019 TIME: 10:17 PM PAGER: [phone] [facility] ABO/Rh Confirmationon 2018 ABO group Nom (Bld) A [facility] Comment on above: Performed By: #### A MIA #### [place] [address] RH Type Positive [facility] Comment on above: Performed By: #### A MIA #### [place] [address] ANES PREOPon 07-08-2019 ANES PREOP HNO ID: [id number] Author: Jone Coulter (Srna) Service: Anesthesiology Author Type: Student Type: Anesthesia PreOp Filed: 07/08/2019 3:34 PM Note Text: OB ANESTHESIA PRE-PROCEDURE ASSESSMENT SERVICE DATE: 07/08/2019 SERVICE TIME: 3:33 PM Estimated body mass index is 31.79 kg/m? as calculated from the following: Height as of this encounter: 170.2 cm (5' 7). Weight as of this encounter: 92.1 kg (203 lb). ASA Class: 2 Adequate NPO Status: Yes ALLERGIES No Known Allergies Airway Assessment: MP 3; Neck ROM: Full ROM without neurologic symptoms; Airway Evaluation: Short neck Dentition: Teeth intact Symptoms of Sleep Apnea: Denies Hematocrit Date Value Ref Range Status 07/08/2019 29.0 (L) 34.1 - 44.9 % Final Platelet Count Date Value Ref Range Status 07/08/2019 185 182 - 369 thou/cmm Final Creatinine Date Value Ref Range Status 07/08/2019 0.66 0.51 - 0.95 mg/dL Final Vitals: 07/08/19 1351 07/08/19 1400 07/08/19 1401 07/08/19 1500 BP: 142/85 Pulse: 85 Resp: 18 Temp: 36.8 ?C (98.2 ?F) 37 ?C (98.6 ?F) TempSrc: SpO2: 98% Weight: Height: Previous Anesthesia: Nausea and/or vomiting Family history of anesthetic problems: None Additional Physical Exam: Lungs: Clear to auscultation. Breath Sounds Equal: Yes Cardiac: Regular rhythm Additional Pertinent Findings: Scoliosis OBSTETRIC HISTORY: ACTIVE PROBLEM LIST Chronic Uti (Urinary Tract Infection) Mild Major Depression (Hcc) Quit Smoking History of Depression Nausea and Vomiting in History of Recurrent [place] History of Scoliosis Family History of Congenital Heart Defect Bv (Bacterial Vaginosis) Anemia During in Third Trimester Pre-Eclampsia in Third Trimester Severe Preeclampsia, Third Trimester Encounter for Induction of Labor Prematurity Scoliosis History of Mrsa Infection Pneumonia Affecting Picc (Peripherally Inserted Central Catheter) in Place Previous OB Anesthetic: None Past Obstetric History: None Current Obstetric Problems/ Important Considerations: Preeclampsia GERD: GERD well controlled with no positional symptoms Anesthetic Risks, Benefits, Alternatives, Personnel and Consent Discussed. Separate Consent Signed at this Interview: Yes Blood Products: Will accept Blood/Blood Products ANESTHETIC PLAN: Neuraxial Block for Labor Pain Management Plan: Parenteral or Oral EPIC Chart Review ACTIVE PROBLEM LIST Chronic Uti (Urinary Tract Infection) Mild Major Depression (Hcc) Quit Smoking History of Depression Nausea and Vomiting in History of Recurrent [place] History of Scoliosis Family History of Congenital Heart Defect Bv (Bacterial Vaginosis) Anemia During in Third Trimester Pre-Eclampsia in Third Trimester Severe Preeclampsia, Third Trimester Encounter for Induction of Labor Prematurity Scoliosis History of Mrsa Infection Pneumonia Affecting Picc (Peripherally Inserted Central Catheter) in Place PAST MEDICAL HISTORY Diagnosis Date - Anemia during in third trimester 06/19/2019 - Mental disorder depression/anxiety - Migraine without aura 02/11/2015 - Pre-eclampsia in third trimester 07/06/2019 - Recurrent UTI was to be evaluated by urology - Scoliosis - Tension type headache 02/11/2015 PAST SURGICAL HISTORY Procedure Laterality Date - REMOVE TONSILS/ADENOIDS,<12 Y/O FAMILY HISTORY Problem Relation Age of Onset - Diabetes Mother - Heart Mother - Hypertension Father - Heart Father - No Known Problems Brother - Heart Maternal Grandmother - No Known Problems Maternal Grandfather - Diabetes Paternal Grandmother - No Known Problems Paternal Grandfather Social History Tobacco Use - Smoking status: Current Some Day Smoker - Smokeless tobacco: Never Used - Tobacco comment: 5 cigarettes daily Substance Use Topics - Alcohol use: No - Drug use: No Medications Prior to Admission: ferrous sulfate (SLOW FE) 140 mg (45 mg iron) TbER Take 1 tablet by mouth twice daily with meals. Disp: 60 tablet Rfl: 3 Wbrjcrdy-Au-Mwz-Fe-[id number] tab Take 1 tablet by mouth once daily. With DHA as covered by insurance Disp: 30 tablet Rfl: 11 Taking Inpatient medications reviewed in [facility]. I have interviewed and examined the patient. I have reviewed the medical record , pertinent consults and/or the pre-anesthesia evaluation, pertinent labs, and test results. Significant changes in the patient's condition since the History and Physical, not otherwise documented in primary service progress notes: No This contains updated information obtained within 48 hours of Surgery/Procedure. SIGNATURE: MARTY Barrios PATIENT NAME: Eb Hui DATE: July 08, 2019 TIME: 3:33 PM : 2000 [facility] CONSULTon 07-08-2019 CONSULT HNO ID: [id number] Author: Cyrstal Castro Service: Neonatology Author Type: Physician Type: Consults Filed: 07/08/2019 12:05 PM Note Text: NEONATOLOGY CONSULT SERVICE DATE: 07/08/2019 Admission Date: 07/08/2019 SERVICE TIME: 1130 Date of : 2000 Age: [age] year old Sex: female Primary Care Physician: Carolann Matthew MD Consulting Merchandise Appraiser: Karla Armstrong APRN.ELLIE and Crystal Castro MD Subjective Consultation for this evaluation was requested by Dr. Whitfield. Reason for consultation: Labor induced at 33 weeks due to severe pre-eclampsia Recommendations will be communicated back to the requesting physician by way of shared medical record or letter. Objective MATERNAL HISTORY: Mother is a 19 year old female, , who is at 33w0d with an MAYDA of 08/26/2019, by Ultrasound dating method. LMP: No LMP recorded. Patient is . Maternal Hospital Problems: ACTIVE PROBLEM LIST Chronic Uti (Urinary Tract Infection) Mild Major Depression (Hcc) Quit Smoking History of Depression Nausea and Vomiting in History of Recurrent [place] History of Scoliosis Family History of Congenital Heart Defect Bv (Bacterial Vaginosis) Anemia During in Third Trimester Pre-Eclampsia in Third Trimester Severe Preeclampsia, Third Trimester Encounter for Induction of Labor Prematurity Scoliosis History of [place] Infection Pneumonia Affecting Picc (Peripherally Inserted Central Catheter) in Place Maternal Meds: No current facility-administered medications on file prior to encounter. Current Outpatient Medications on File Prior to Encounter: ferrous sulfate (SLOW FE) 140 mg (45 mg iron) TbER Take 1 tablet by mouth twice daily with meals. Ghecrrro-Ze-Iqq-Fe-FA tab Take 1 tablet by mouth once daily. With DHA as covered by insurance Current Facility-Administered Medications Medication Dose Route Frequency - lactated ringers 1,000 mL iv bolus 1,000 mL INTRAVENOUS PRN - oxytocin 10 Units iv bolus () (PITOCIN) 10 Units INTRAVENOUS ONE TIME - oxytocin 30 unit in LR 500 mL iv infusion () (PITOCIN) 2.86 Units/hr INTRAVENOUS ONE TIME - lactated ringers 500 mL iv bolus 500 mL INTRAVENOUS PRN - misoprostol 25 mcg pre-split tab(s) (CYTOTEC) 25 mcg VAGINAL q 4 H PRN - magnesium sulfate 20 gram/500mL iv 2 g/hr INTRAVENOUS CONTINUOUS - calcium gluconate 1 g injection 1 g INTRAVENOUS PRN - lactated ringers infusion 10-75 mL/hr INTRAVENOUS CONTINUOUS - NaCl 0.9% 2-10 mL 2-10 mL INTRAVENOUS q 12 H - guaiFENesin 600 mg ER tab(s) (MUCINEX) 600 mg ORAL q 12 H PRN - lidocaine 10 mg/mL (1 %) 10-20 mg injection (XYLOCAINE) 1-2 mL INTRADERMAL ONCE - NaCl 0.9% 10 mL 10 mL INTRAVENOUS q 12 H - NaCl 0.9% 20 mL 20 mL INTRAVENOUS PRN - amoxicillin 875 mg tab(s) (AMOXIL) 875 mg ORAL q 12 H - [START ON 07/09/2019] azithromycin 250 mg tab(s) (ZITHROMAX) 250 mg ORAL DAILY complications: severe pre-eclampsia with features, smoking history (~5 cigarettes per day) The following was discussed with mother GENERAL: Neonatology presence and role at delivery: Yes Possible need for resuscitation: Yes DNR status: N/A Need for admission to NICU: Yes Offered tour of NICU: No Discharge criteria: Yes Survival odds/morbidity AND mortality: Yes RESPIRATORY Risk of RDS/breathing problems: Yes Possible need for respiratory support: Yes CARDIOVASCULAR Discussed Hypotension, potential medical treatment: No Other (e.g. congenital heart disease): No NEUROLOGIC Risk of IVH/Neuro developmental delays: No Discussed need for evaluation by Chronometer Tester for ROP: No Discussed risk for hearing deficit: No FEN Mother?s Preference: Breast: Yes. Benefits of breast milk: Yes Bottle: No Need for supplemental nutrition and/or IVFs: Yes INFECTION Risk factors for infection- congenital and nosocomial: Yes Need to start antibiotics: Yes HEME Possible need for blood transfusion: No. Verbal consent obtained: No ACCESS Possible need for UAC/UVC/PICC: No. Verbal consent obtained: No MISC. Name if Vp Transportation, if known: Unknown, please contact patient's primary care physician Possible need for transfer to outside hospital: Yes Possible need for subspecialty evaluation: No Additional discussion: N/A Impression/Recommendations Assessment: Infant (male) to deliver at 33 weeks gestation; labor induced due to severe pre-eclampsia Plan: Neonatology to be present at delivery Physician [id number] total time, including discussion: 70 minutes, more than 50 % of time devoted to coordination of care and/or counseling. SIGNATURE: Karla Armstrong APRN.FINAL TOUCH UP PAINTER PATIENT NAME: Eb Hui DATE: July 08, 2019 TIME: 11:49 AM I discussed above with mom in detail. No additional questions. Crystal Castro MD [facility] CONSULT HNO ID: [id number] Author: Jorje Toledo DO Service: Obstetrics Author Type: Resident Type: Consults Filed: 07/08/2019 3:16 AM Note Text: -- Attestation signed by Mauricio Mckeon at 07/08/2019 5:30 AM Attending Note I personally saw and examined the patient. I reviewed the resident's note. I agree with the resident's assessment and plan unless otherwise noted. Signature: Mauricio Mckeon, DO -- OBSTETRICS CONSULT ? SERVICE DATE: July 08, 2019 SERVICE TIME: 3:16 AM ? ? Subjective Patient's stated reason for arrival: diagnosed with pre-e ? CHIEF COMPLAINT: Transfer from [employer] ? HISTORY OF THE PRESENT ILLNESS: The patient is a 19 year old female, , who is at 33w0d here as a transfer of care from [facility] after being diagnosed with preeclampsia with features. Patient was previously admitted at [facility] at 32w5d for preeclampsia without features for observation. At that time, patient had labwork drawn that was overall normal and received 2 doses of betamethasone. She has intermittently had a headache and right upper quadrant pain since that time. She now has persistent right upper quadrant pain that she describes as persistently dull and intermittently sharp. When seen in [facility], she had high mild to severe range blood pressures and was started on Magnesium and sent to [facility]. ? She denies any current headache. She does endorse some blurry vision that started after her magnesium was started. She denies chest pain. She does endorse some shortness of breath that has been present throughout the last few weeks. Good movement. Denies vaginal bleeding., Denies contractions., Denies leaking of fluid. ? Denies history of HSV. Endorses history of MRSA skin infection about 3 years ago after going to a waterpark. ? POST DELIVERY CONTRACEPTION: Discussed post-delivery contraception options. Patient received written information about post-delivery contraception options. Patient does not desire post-delivery contraception. ? HISTORY REVIEW PAST MEDICAL HISTORY Diagnosis Date - Anemia during in third trimester 06/19/2019 - Mental disorder ? ? depression/anxiety - Migraine without aura 02/11/2015 - Pre-eclampsia in third trimester 07/06/2019 - Recurrent UTI ? ? was to be evaluated by urology - Scoliosis ? - Tension type headache 02/11/2015 ? PAST SURGICAL HISTORY Procedure Laterality Date - REMOVE TONSILS/ADENOIDS,<12 Y/O ? ? ? FAMILY HISTORY Problem Relation Age of Onset - Diabetes Mother ? - Heart Mother ? - Hypertension Father ? - Heart Father ? - No Known Problems Brother ? - Heart Maternal Grandmother ? - No Known Problems Maternal Grandfather ? - Diabetes Paternal Grandmother ? - No Known Problems Paternal Grandfather ? ? Social History ? Tobacco Use - Smoking status: Current Some Day Smoker - Smokeless tobacco: Never Used - Tobacco comment: 5 cigarettes daily Substance Use Topics - Alcohol use: No - Drug use: No ? Obstetric History T0 L0 SAB0 TAB0 Ectopic0 Multiple0 Live Births0 ? ALLERGIES No Known Allergies Prior to Admission Medications Prescriptions Last Dose Informant Patient Reported? Taking? Ouhfrdnu-Vc-Eur-Fe-FA tab ? ? No No Sig: Take 1 tablet by mouth once daily. With DHA as covered by insurance ferrous sulfate (SLOW FE) 140 mg (45 mg iron) TbER ? ? No No Sig: Take 1 tablet by mouth twice daily with meals. Facility-Administered Medications: None ? REVIEW OF SYSTEMS: The remainder of the review of systems is negative. ? ? Objective ? LAST VITALS: Pulse BP Resp O2 Sat Temp Pain 88 148/98 16 97 % 36.8 ?C (98.2 ?F) 7 ? HT/WT/BMI: Height Weight BMI 170.2 cm (5' 7) 90.7 kg (200 lb) 31.32 ? PHYSICAL EXAM: General: WD, WN, NAD, comfortable HEENT: NC/AT, sclera white Lungs: clear Heart: RR, S1, S2, no yovani, rub, or murmur appreciated Abdomen: soft, no masses, +RUQ TTP, +epigastric TTP Uterus: soft, NT Extremities: 2+ edema DTRs: 2+ ? CERVICAL EXAM: Dilation: Closed (07/08/19 0243 : Jorje (Res) DO Tre) cm ? MONITORING/ASSESSMENT: ? Baseline: 140 Variability: Moderate (6-25 bpm) Accelerations: Present Decelerations: None Contractions: Not present Frequency: None NST Interpretation: Category I and Reactive ? ULTRASOUND: US findings: Head position: cephalic, HR: 140s, Placental location: anterior, Amniotic Fluid: DVP 7.5cm ? ? LABS Diagnostic tests reviewed for today's visit: Outside chart from [facility] [employer] reviewed. records reviewed ? ? Assessment/Plan 19 year old EGA:33w0d IOL Preeclampsia with features ? Active Hospital Problems ? Diagnosis Date Noted - 33 weeks gestation of 07/08/2019 ? ? Overview Note: ? ? ? - GBS neg - Cytotec #1 soon - FB when able - Pitocin prn - AROM prn - Epi prn - Growth at 32w6d 4lb 9oz 42%ile ? - Severe preeclampsia, third trimester 07/08/2019 ? ? Overview Note: ? ? ? - Features being RUQ pain - BP's mild to severe on admission - Magnesium started at [employer], currently running 2g/hr - Continue to monitor ? - Prematurity 07/08/2019 ? ? Overview Note: ? ? ? - s/p BMZ 07/06 and 07/07 - Growth as above ? - Scoliosis 07/08/2019 ? ? Overview Note: ? ? ? - Anesthesia to evaluate for epidural ? - Anemia during in third trimester 06/19/2019 ? ? Overview Note: ? ? ? - Taking PO iron - Admission CBC pending ? Plan of care discussed with: Dr. Mckeon SIGNATURE: Jorje Toledo DO PATIENT NAME: Eb Hui DATE: 07/08/2019 TIME: 3:16 AM PAGER: [phone] Normal [facility] Comprehensive Panelon 2018 Urea nitrogen [Mass/Vol] 12 mg/dL Normal 7-18 [facility] Comment on above: Performed By: #### P 14 #### [place] [address] ALP [Catalytic activity/Vol] 110 U/L Normal 45-117 [facility] Comment on above: Performed By: #### P 14 #### [place] [address] Bilirubin [Mass/Vol] 0.2 mg/dL Normal 0.2-1.0 [facility] Comment on above: Performed By: #### P 14 #### [facility] [address] [place], [place] [address] Creatinine [Mass/Vol] 0.66 mg/dL Normal 0.51-0.95 [facility] Comment on above: Performed By: #### P 14 #### [facility] [address] [place], [place] [address] Protein [Mass/Vol] 5.8 g/dL Low 6.4-8.2 [facility] Comment on above: Performed By: #### P 14 #### [facility] [address] [place], [place] [address] AST [Catalytic activity/Vol] 12 U/L Low 15-37 [facility] Comment on above: Performed By: #### P 14 #### [facility] [address] [place], [place] [address] ALT [Catalytic activity/Vol] 13 U/L Normal 12-78 [facility] Comment on above: Performed By: #### P 14 #### [facility] [address] [place], [place] [address] Albumin [Mass/Vol] 2.2 g/dL Low 3.4-5.0 [facility] Comment on above: Performed By: #### P 14 #### [facility] [address] [place], [place] [address] Anion gap [Moles/Vol] 14 mmol/L Normal 8-16 [facility] Comment on above: Performed By: #### P 14 #### [facility] [address] [place], [place] [address] CO2 [Moles/Vol] 20 mmol/L Low 21-32 [facility] Comment on above: Performed By: #### P 14 #### [facility] [address] [place], [place] [address] Calcium [Mass/Vol] 7.8 mg/dL Low 8.5-10.1 [facility] Comment on above: Performed By: #### P 14 #### [facility] [address] [place], [place] [address] Glucose [Mass/Vol] 73 mg/dL Normal 70-99 [facility] Comment on above: Performed By: #### P 14 #### [facility] [address] [place], [place] [address] Chloride [Moles/Vol] 102 mmol/L Normal 98-107 [facility] Comment on above: Performed By: #### P 14 #### [facility] [address] [place], [place] [address] Potassium [Moles/Vol] 3.5 mmol/L Normal 3.5-5.1 [facility] Comment on above: Performed By: #### P 14 #### [facility] [address] [place], [place] [address] Sodium [Moles/Vol] 132 mmol/L Low 136-145 [facility] Comment on above: Performed By: #### P 14 #### [facility] [address] [place], [place] [address] ECG COMPLETEon 07-08-2019 ECG COMPLETE NAME : EB HUI PID : [id number] : 2000 Gender : Female Race : ORD : [id number] Procedure Date : Jul 08 2019 04:20:04 Edit Date : Jul 08 2019 14:31:36 Diagnosis:NORMAL SINUS RHYTHM NORMAL ECG NO PREVIOUS ECGS AVAILABLE Confirmed by MD MENDOZA VINAY ([id number]) on 07/08/2019 2:31:29 PM Ventricular Rate : 74 BPM Atrial Rate : 74 BPM P-R Interval : 160 ms QRS Duration : 76 ms Q-T Interval : 400 ms QTC Calculation(Bazett) : 444 ms P [place] : 46 degrees R [place] : 62 degrees T [place] : 48 degrees Test Reason : Chest Pain Location : 6 : CVICU LDR Overread By : MD MENDOZA VINAY Edited By : MD MENDOZA VINAY Referred By : , Acquired by : VELASQUEZ ONEAL [facility] HISTORY PHYSICALon 9 HISTORY PHYSICAL HNO ID: [id number] Author: Jorje Toledo DO Service: Maternal Medicine Author Type: Resident Type: HANDP Filed: 07/08/2019 3:27 AM Note Text: -- Attestation signed by Rodo Hope at 07/09/2019 4:17 PM 19 y/o at 33 weeks Preeclampsia with severe features, worsening disease S/p steroids - will proceed with IOL Rodo Hope MD -- MATERNAL MEDICINE HISTORY AND PHYSICAL SERVICE DATE: July 08, 2019 SERVICE TIME: 2:50 AM Subjective Patient's stated reason for arrival: diagnosed with pre-e CHIEF COMPLAINT: Transfer from [employer] HISTORY OF THE PRESENT ILLNESS: The patient is a 19 year old female, , who is at 33w0d here as a transfer of care from [facility] after being diagnosed with preeclampsia with features. Patient was previously admitted at [facility] at 32w5d for preeclampsia without features for observation. At that time, patient had labwork drawn that was overall normal and received 2 doses of betamethasone. She has intermittently had a headache and right upper quadrant pain since that time. She now has persistent right upper quadrant pain that she describes as persistently dull and intermittently sharp. When seen in [facility], she had high mild to severe range blood pressures and was started on Magnesium and sent to [facility]. She denies any current headache. She does endorse some blurry vision that started after her magnesium was started. She denies chest pain. She does endorse some shortness of breath that has been present throughout the last few weeks. Good movement. Denies vaginal bleeding., Denies contractions., Denies leaking of fluid. Denies history of HSV. Endorses history of MRSA skin infection about 3 years ago after going to a waterpark. POST DELIVERY CONTRACEPTION: Discussed post-delivery contraception options. Patient received written information about post-delivery contraception options. Patient does not desire post-delivery contraception. HISTORY REVIEW PAST MEDICAL HISTORY Diagnosis Date - Anemia during in third trimester 06/19/2019 - Mental disorder depression/anxiety - Migraine without aura 02/11/2015 - Pre-eclampsia in third trimester 07/06/2019 - Recurrent UTI was to be evaluated by urology - Scoliosis - Tension type headache 02/11/2015 PAST SURGICAL HISTORY Procedure Laterality Date - REMOVE TONSILS/ADENOIDS,<12 Y/O FAMILY HISTORY Problem Relation Age of Onset - Diabetes Mother - Heart Mother - Hypertension Father - Heart Father - No Known Problems Brother - Heart Maternal Grandmother - No Known Problems Maternal Grandfather - Diabetes Paternal Grandmother - No Known Problems Paternal Grandfather Social History Tobacco Use - Smoking status: Current Some Day Smoker - Smokeless tobacco: Never Used - Tobacco comment: 5 cigarettes daily Substance Use Topics - Alcohol use: No - Drug use: No Obstetric History T0 L0 SAB0 TAB0 Ectopic0 Multiple0 Live Births0 ALLERGIES No Known Allergies Prior to Admission Medications Prescriptions Last Dose Informant Patient Reported? Taking? Kdqtuqfl-Um-Xgv-Fe-FA tab No No Sig: Take 1 tablet by mouth once daily. With DHA as covered by insurance ferrous sulfate (SLOW FE) 140 mg (45 mg iron) TbER No No Sig: Take 1 tablet by mouth twice daily with meals. Facility-Administered Medications: None REVIEW OF SYSTEMS: The remainder of the review of systems is negative. Objective LAST VITALS: Pulse BP Resp O2 Sat Temp Pain 88 148/98 16 97 % 36.8 ?C (98.2 ?F) 7 HT/WT/BMI: Height Weight BMI 170.2 cm (5' 7) 90.7 kg (200 lb) 31.32 PHYSICAL EXAM: General: WD, WN, NAD, comfortable HEENT: NC/AT, sclera white Lungs: clear Heart: RR, S1, S2, no yovani, rub, or murmur appreciated Abdomen: soft, no masses, +RUQ TTP, +epigastric TTP Uterus: soft, NT Extremities: 2+ edema DTRs: 2+ CERVICAL EXAM: Dilation: Closed (07/08/19 0243 : Jorje (Res) DO Tre) cm MONITORING/ASSESSMENT: Baseline: 140 Variability: Moderate (6-25 bpm) Accelerations: Present Decelerations: None Contractions: Not present Frequency: None NST Interpretation: Category I and Reactive ULTRASOUND: US findings: Head position: cephalic, HR: 140s, Placental location: anterior, Amniotic Fluid: DVP 7.5cm LABS Diagnostic tests reviewed for today's visit: Outside chart from [facility] reviewed. records reviewed Assessment/Plan 19 year old EGA:33w0d IOL Preeclampsia with features Active Hospital Problems Diagnosis Date Noted - 33 weeks gestation of 07/08/2019 Overview Note: - GBS neg - Cytotec #1 soon - FB when able - Pitocin prn - AROM prn - Epi prn - Growth at 32w6d 4lb 9oz 42%ile - Severe preeclampsia, third trimester 07/08/2019 Overview Note: - Features being RUQ pain - BP's mild to severe on admission - Magnesium started at [facility], currently running 2g/hr - Continue to monitor - Prematurity 07/08/2019 Overview Note: - s/p BMZ 07/06 and 07/07 - Growth as above - Scoliosis 07/08/2019 Overview Note: - Anesthesia to evaluate for epidural - Anemia during in third trimester 06/19/2019 Overview Note: - Taking PO iron - Admission CBC pending Discussed management with Dr. Hope. Given worsening of clinical disease, will admit for induction of labor. Patient is s/p BMZ currently at 33w0d. Answered patient's and families questions. Plan of care discussed with: Provider, RN, Patient. SIGNATURE: Jorje Toledo DO PATIENT NAME: Eb Hui DATE: July 08, 2019 TIME: 2:43 AM PAGER/CONTACT #: [phone] Normal [facility] Hemogramon 07-08-2019 Erythrocyte distribution width (RBC) [Ratio] 14.1 % Normal 11.7-14.4 [facility] Comment on above: Performed By: #### C BC1 #### [address] [address] Hematocrit (Bld) [Volume fraction] 29.0 % Low 34.1-44.9 [facility] Comment on above: Performed By: #### C BC1 #### [address] [address] Hemoglobin (Bld) [Mass/Vol] 9.1 g/dL Low 11.2-15.7 [facility] Comment on above: Performed By: #### C BC1 #### [facility] [address] [place], [place] [address] MCH (RBC) [Entitic mass] 27.6 pg Normal 25.6-32.2 [facility] Comment on above: Performed By: #### C BC1 #### [facility] [address] [place], [place] [address] MCHC (RBC) [Mass/Vol] 31.4 % Low 31.6-34.8 [facility] Comment on above: Performed By: #### C BC1 #### [facility] [address] [place] [address] MCV (RBC) [Entitic vol] 87.9 fL Normal 79.4-94.8 [facility] Comment on above: Performed By: #### C BC1 #### [facility] [address] [place] [address] Nucleated RBC (Bld) [#/Vol] 0.02 thou/cmm High 0.00-0.01 [facility] Comment on above: Performed By: #### C BC1 #### [facility] [address] [place] [address] Nucleated RBC/100 WBC (Bld) [Ratio] 0.1 % Normal 0.0-0.2 [facility] Comment on above: Performed By: #### C BC1 #### [facility] [address] [place] [address] Platelet mean volume (Bld) [Entitic vol] 10.9 fL Normal 9.4-12.3 [facility] Comment on above: Performed By: #### C BC1 #### [facility] [address] [place], [place] [address] Platelets (Bld) [#/Vol] 185 thou/cmm Normal 182-369 [facility] Comment on above: Performed By: #### C BC1 #### [facility] [address] [place], [place] [address] RBC (Bld) [#/Vol] 3.30 mil/cmm Low 3.93-5.22 [facility] Comment on above: Performed By: #### C BC1 #### [facility] [address] [place] [address] RDW SD 44.7 fl Normal 36.4-46.3 [facility] Comment on above: Performed By: #### C BC1 #### [place] [id number] WBC (Bld) [#/Vol] 14.74 thou/cmm High 3.98-10.04 [facility] Comment on above: Performed By: #### C BC1 #### [place] [address] MDRD GFRon 07-08-2019 GFR/1.73 sq M predicted among non-blacks MDRD (S/P/Bld) [Vol rate/Area] mL/min/{1.73_m2} Normal >60mL/min/1.73 m2 [facility] Comment on above: Result Comment: If t he patient is , multiply the result by 1.210. Performed By: #### G FR #### [place] [address] Magnesium Bloodon 07-08-2019 Magnesium [Mass/Vol] 5.8 mg/dL Critically high 1.6-2.6 [facility] Comment on above: Result Comment: RESU LT RECHECKED Performed By: #### M AG #### [place] [address] NURSING PROGon 07-08-2019 NURSING PROG HNO ID: [id number] Author: Leydi (Rn) PATIENCE Damico Service: Nursing Author Type: Registered Nurse Type: Nursing Progress Note Filed: 07/08/2019 11:41 AM Note Text: SCN here to see PT. DESIGN CHIEF and Perinatologist. Normal [facility] NURSING PROG HNO ID: [id number] Author: Leydi (Rn) Margaux, PATIENCE Service: Nursing Author Type: Registered Nurse Type: Nursing Progress Note Filed: 07/08/2019 11:40 AM Note Text: Picc line start of use. Magnesium and LR hung into the PICC line with new tubing. [facility] NURSING PROG HNO ID: [id number] Author: Alyssia NegreteRn) PATIENCE Caldwell Service: Nursing Author Type: Registered Nurse Type: Nursing Progress Note Filed: 07/08/2019 11:08 AM Note Text: Patient given educational hand out related to her PICC line placement. Patient verbalizes understanding, no questions at this time. [facility] NURSING PROG HNO ID: [id number] Author: Shana NegreteRn) PATIENCE Dimas Service: ? Author Type: Registered Nurse Type: Nursing Progress Note Filed: 07/08/2019 9:01 AM Note Text: Nursing Progress Note Patient Name: Eb Hui Patient Location: [facility] Special ops called for labs. Unable to obtain x2 attempts. RN notified. This note was completed by: Shana Dimas RN [facility] NUTRITIONon 07-08-2019 NUTRITION HNO ID: [id number] Author: Leydi NegreteRn) PATIENCE Damico Service: Nursing Author Type: Registered Nurse Type: Nutrition Filed: 07/08/2019 11:38 AM Note Text: Magnesium level drawn and sent. Dr. Whitfield is aware . [facility] PROCEDUREon 07-08-2019 PROCEDURE HNO ID: [id number] Author: Cydney NegreteRn) Jose G Causey RN Service: PICC Team Author Type: Registered Nurse Type: Procedures Filed: 07/08/2019 10:44 AM Note Text: PICC NURSE INSERTION NOTE DATE OF PROCEDURE: July 08, 2019 TIME OF PROCEDURE: 949 ORDERING PHYSICIAN: Jayy INFORMED CONSENT: Obtained per hospital policy. INDICATION FOR LINE PLACEMENT: Multiple IV attempts and restarts CONDITION OF LINE PLACEMENT: Sterile PRIMARY PROCEDURALIST: Cydney Causey RN TUBING ASSEMBLER: Roberta England PRE-PROCEDURE REVIEW ALLERGIES No Known Allergies Known History of Venous Thrombosis: No Known History of Permanent Pacemaker or Automated Implanted Cardiac Device: No Previous Breast Surgery of Lymph Node Dissection: No History of Renal Disease with Arterio-Venous Fistula in Place or Planned: No Ultrasound Assessment Complete: Yes PROCEDURE NARRATIVE SAFE PRACTICE Hand Hygiene per Hospital Policy: Yes Skin Preparation Unit Dose Applicator Used: Chloraprep (CHG + alcohol), allowed to dry. Procedure Surface Cleansed with Antimicrobial Wipes: Yes Barriers Used by Proceduralist and all Assisting Personnel: Yes UNIVERSAL PROTOCOL / SAFETY CHECKLIST Procedure to be performed: Peripherally Inserted Central Catheter Sign in Communication: Completed Time Out: Team Confirms the Correct Patient, Correct Procedure, Correct Site and Site Marking, Correct Position (if applicable), Prep and Dry Time (if applicable). Time: 1005 Affirmation of Time Out: YES Sign Out Discussion: Completed Cydney Causey RN CATHETER PLACEMENT Brand: [employer] Lot: [id number] Number of Lumens: 2 Type of PICC: Power Injectable PICC Lumen Size: 5 [place] PLACEMENT TECHNIQUE Lidocaine: Yes. Strength: 1% Volume 1CC Modified Seldinger Technique Used to Place Line via the Left Basilic Ultrasound Guidance: Yes Number of Attempts at Insertion: 1 Ensured control of guidewire during all aspects of the procedure: Yes Accounted for entire guidewire upon removal: Yes Internal Length: 42 cm External Length: 1 cm Trim Length: 43 cm Mid-Arm Circumference Above Insertion Site: 27 centimeters Post Insertion Pain Level Related to Procedure: 0 Action Taken to Address Pain: None needed Verified Placement: Blood return all ports, Ultrasound and Tip location system or device indicates the tip is located in the SVC/CAJ. Line was Flushed with 20 cc normal saline Line Secured with: Securement device Sterile Dressing Applied and Dated: Yes Sterile Caps on all Ports Prior to Leaving Procedure Area: Yes SPECIMENS: None COMPLICATIONS: None Patient Education Materials: Placed in chart [facility] Central Line Insertion Checklist QUESTIONS or PROBLEMS: Call [phone] SIGNATURE: Cydney Causey RN PATIENT NAME: Eb Hui DATE: July 08, 2019 TIME: 10:36 AM PAGER/CONTACT PHONE: [facility] PROGRESSon 07-08-2019 PROGRESS HNO ID: [id number] Author: Jorje Toledo DO Service: Obstetrics Author Type: Resident Type: Progress Notes Filed: 07/08/2019 8:14 PM Note Text: Patient overall comfortable s/p cook catheter removal and morphine. BP 147/86 Pulse 84 Temp 37.2 ?C (99 ?F) (Temporal) Resp 16 Ht 170.2 cm (5' 7) Wt 92.1 kg (203 lb) SpO2 95% BMI 31.79 kg/m? FHT: 130/mod variability/+ accels/- decels [place]: q3-5min Active Hospital Problems Diagnosis Date Noted - Encounter for induction of labor 07/08/2019 Overview Note: - GBS neg - s/p cytotec x3, CC - Pitocin per protocol - AROM prn - Epi prn - Severe preeclampsia, third trimester 07/08/2019 Overview Note: - Features being RUQ pain - BPs mild to severe on admission - CBC/CMP wnl on admission - Magnesium started at [employer], currently running 2g/hr. Magnesium level pending - Continue to monitor - Prematurity 07/08/2019 Overview Note: - s/p BMZ 07/06 and 07/07 - Growth at 32w6d 4lb 9oz 42%ile - NICU aware, plan to deliver in the OR - Scoliosis 07/08/2019 Overview Note: - Anesthesia to evaluate for epidural - History of MRSA infection 07/08/2019 Overview Note: - 3 years ago after exposure at [facility] - Vancomycin if for - Pneumonia affecting 07/08/2019 Overview Note: - Productive cough with abnormal CXR findings - Amoxicillin and Azithromycin x5 days - PICC (peripherally inserted central catheter) in place 07/08/2019 Overview Note: - Placed for difficulty IV access - Anemia during in third trimester 06/19/2019 Overview Note: - Taking PO iron intermittently - Admission hgb 9.1 SIGNATURE: Jorje Toledo DO PATIENT NAME: Eb Hui DATE: 07/08/2019 TIME: 8:13 PM PAGER: [phone] [facility] PROGRESS HNO ID: [id number] Author: Jorje Toledo DO Service: Obstetrics Author Type: Resident Type: Progress Notes Filed: 07/08/2019 6:19 PM Note Text: Patient uncomfortable, recently received morphine. BP 140/91 Pulse 85 Temp 37.2 ?C (99 ?F) (Temporal) Resp 16 Ht 170.2 cm (5' 7) Wt 92.1 kg (203 lb) SpO2 97% BMI 31.79 kg/m? FHT: 130/mod variability/+ accels/- decels [place]: q2-5min Active Hospital Problems Diagnosis Date Noted - Encounter for induction of labor 07/08/2019 Overview Note: - GBS neg - s/p cytotec x3 - CC @1410 - Pitocin per protocol - AROM prn - Epi prn - Severe preeclampsia, third trimester 07/08/2019 Overview Note: - Features being RUQ pain - BPs mild to severe on admission - CBC/CMP wnl on admission - Magnesium started at [facility], currently running 2g/hr. Magnesium level pending - Continue to monitor - Prematurity 07/08/2019 Overview Note: - s/p BMZ 07/06 and 07/07 - Growth at 32w6d 4lb 9oz 42%ile - NICU aware, plan to deliver in the OR - Scoliosis 07/08/2019 Overview Note: - Anesthesia to evaluate for epidural - History of MRSA infection 07/08/2019 Overview Note: - 3 years ago after exposure at [employer] - Vancomycin if for - Pneumonia affecting 07/08/2019 Overview Note: - Productive cough with abnormal CXR findings - Amoxicillin and Azithromycin x5 days - PICC (peripherally inserted central catheter) in place 07/08/2019 Overview Note: - Placed for difficulty IV access - Anemia during in third trimester 06/19/2019 Overview Note: - Taking PO iron intermittently - Admission hgb 9.1 SIGNATURE: Jorje Toledo DO PATIENT NAME: Eb Hui DATE: 07/08/2019 TIME: 6:15 PM PAGER: [phone] [facility] PROGRESS HNO ID: [id number] Author: Nancy Gonzales Service: Obstetrics Author Type: Resident Type: Progress Notes Filed: 07/08/2019 2:18 PM Note Text: Procedure: Cervical Ripening Balloon Indication: Patient is a 19 year old year old female, 33w0d here for induction of labor. Pre-operative/Pre-procedur e Diagnosis: Un-ripe cervix Post-operative/Post-proced ure Diagnosis: Same Procedure Details: The cervix was examined and found to be 1 cm dilated. A Cook Catheter was inserted through the cervical os, beyond internal os and approximately 60 cc of sterile saline slowly injected into the intrauterine portion of the balloon. 60 cc were injected into the vaginal portion of the balloon. The speculum was then removed. Patient tolerated procedure well. Cytotec placed after cook catheter. Estimated Blood Loss: Small amount Bloody show noted with cervical check. RN weighed pad recently for 56cc of blood. Small clot noted in toilet. FHT Category I. Suspect bloody show as patient is making cervical change but cannot rule out placental abruption. Continue to monitor bleeding and FHT closely. Nancy Gonzales DO Pager # [phone] 07/08/2019 2:18 PM [facility] PROGRESS HNO ID: [id number] Author: Nancy (Dread) Janet Service: Obstetrics Author Type: Resident Type: Progress Notes Filed: 07/08/2019 2:16 PM Note Text: S: Patient tolerating contractions. O: BP 139/85 Pulse 118 Temp 36.8 ?C (98.2 ?F) (Temporal) Resp 18 Ht 170.2 cm (5' 7) Wt 92.1 kg (203 lb) SpO2 92% BMI 31.79 kg/m? FHT: 140/moderate variability/+accels/-decel s [place]: q3-6 minutes CE: 1/50/-3 A/P: 19yo at 33w0d IOL pre-eclampsia with features Active Hospital Problems Diagnosis Date Noted - Encounter for induction of labor 07/08/2019 Overview Note: - GBS neg - Cytotec #3 @1410 - CC @1410 - Pitocin prn - AROM prn - Epi prn - Severe preeclampsia, third trimester 07/08/2019 Overview Note: - Features being RUQ pain - BPs mild to severe on admission - CBC/CMP wnl on admission - Magnesium started at [facility], currently running 2g/hr. Magnesium level pending - Continue to monitor - Prematurity 07/08/2019 Overview Note: - s/p BMZ 07/06 and 07/07 - Growth at 32w6d 4lb 9oz 42%ile - NICU aware, plan to deliver in the OR - Scoliosis 07/08/2019 Overview Note: - Anesthesia to evaluate for epidural - History of MRSA infection 07/08/2019 Overview Note: - 3 years ago after exposure at [employer] - Vancomycin if for - Pneumonia affecting 07/08/2019 Overview Note: - Productive cough with abnormal CXR findings - Amoxicillin and Azithromycin x5 days - PICC (peripherally inserted central catheter) in place 07/08/2019 Overview Note: - Ordered for difficult access, not yet in place - Anemia during in third trimester 06/19/2019 Overview Note: - Taking PO iron intermittently - Admission hgb 9.1 Cat I FHT. Cook catheter and cytotec placed with most recent check. Nancy Gonzales DO Pager # [phone] 07/08/2019 2:16 PM [facility] PROGRESS HNO ID: [id number] Author: Roberta (Rn) PATIENCE [place] Service: PICC Team Author Type: Registered Nurse Type: Progress Notes Filed: 07/08/2019 10:10 AM Note Text: AMBULATORY PATIENT EDUCATION VASCULAR ACCESS TEAM TOPIC: Peripherally Inserted Central Catheter READINESS TO LEARN COGNITIVE ABILITY: Alert and oriented MOTIVATION TO LEARN: Interested FAMILY SUPPORT: High - Very involved in pt care INSTRUCTION PROVIDED TO: Patient PATIENT LEARNS BEST BY: Undecided FACTORS AFFECTING LEARNING:None PHYSICAL LIMITATIONS AFFECTING LEARNING: None LEARNING RESPONSE METHOD OF INSTRUCTION: Individual instruction Verbal instruction PATIENT / FAMILY RESPONSE: Verbalizes understanding of pre-procedure instructions Verbalizes understanding of post-procedure instructions FOLLOW-UP PLAN: Complete - No need for follow-up SUPPLEMENTAL MATERIAL: PICC Line brochure [facility] PROGRESS HNO ID: [id number] Author: Gillian Whitfield Service: Obstetrics Author Type: Resident Type: Progress Notes Filed: 07/08/2019 9:48 AM Note Text: S: Pt feeling tired. O: BP 133/81 Pulse 78 Temp 36.5 ?C (97.7 ?F) Resp 20 Ht 170.2 cm (5' 7) Wt 92.1 kg (203 lb) SpO2 96% BMI 31.79 kg/m? FHT 140/moderate/+accels/no decels Ctx q 4-15 min Cat 1 A/P: 19 year old at 33.0 IOL pre-e with features Active Hospital Problems Diagnosis Date Noted - Encounter for induction of labor 07/08/2019 Overview Note: - GBS neg - Cytotec #2 @ 0925 - FB/CC when able - Pitocin prn - AROM prn - Epi prn - Severe preeclampsia, third trimester 07/08/2019 Overview Note: - Features being RUQ pain - BPs mild to severe on admission - CBC/CMP wnl on admission - Magnesium started at [facility], currently running 2g/hr. Magnesium level pending - Continue to monitor - Prematurity 07/08/2019 Overview Note: - s/p BMZ 07/06 and 07/07 - Growth at 32w6d 4lb 9oz 42%ile - NICU aware, plan to deliver in the OR - Scoliosis 07/08/2019 Overview Note: - Anesthesia to evaluate for epidural - History of MRSA infection 07/08/2019 Overview Note: - 3 years ago after exposure at [employer] - Vancomycin if for - Pneumonia affecting 07/08/2019 Overview Note: - Productive cough with abnormal CXR findings - Amoxicillin and Azithromycin x5 days - PICC (peripherally inserted central catheter) in place 07/08/2019 Overview Note: - Ordered for difficult access, not yet in place - Anemia during in third trimester 06/19/2019 Overview Note: - Taking PO iron intermittently - Admission hgb 9.1 Gillian Whitfield MD 07/08/2019 9:44 AM Obstetrics and Gynecology PGY3 Pager #[phone] [facility] PROGRESS HNO ID: [id number] Author: Gillian Whitfield Service: Obstetrics Author Type: Resident Type: Progress Notes Filed: 07/08/2019 9:42 AM Note Text: CXR reviewed. Findings are suspicious for pneumonia based on this and the patient's productive cough with chest discomfort. We will initiate treatment with amoxicillin and azithromcyin. Reviewed with Dr. Nguyễn. Gillian Whitfield MD 07/08/2019 9:42 AM Obstetrics and Gynecology PGY3 Pager #[phone] [facility] PROGRESS HNO ID: [id number] Author: Gillian Whitfield Service: Obstetrics Author Type: Resident Type: Progress Notes Filed: 07/08/2019 9:32 AM Note Text: Cytotec #2 placed at 0925. Gillian Whitfield MD 07/08/2019 9:32 AM Obstetrics and Gynecology PGY3 Pager #[phone] [facility] PROGRESS HNO ID: [id number] Author: George Nguyễn Jr. Service: ? Author Type: Physician Type: Progress Notes Filed: 07/08/2019 9:25 AM Note Text: OBSTETRICS ANTEPARTUM PROGRESS NOTE SERVICE DATE: 07/08/2019 SERVICE TIME: 9:19 AM ASSESSMENT AND PLAN: 19 year old EGA:33w0d admitted for Pre-eclampsia and With severe features. Plan of care discussed with: Patient, RN and Residents caring for the patient. The patient is complaining of chest pain and headache. The pain scale that she is giving us is not consistent with my observations. She states that the chest pain as 8 out of 10 but she is very comfortable she notes that the chest pain is only with coughing and spray deep inspiration I think it is musculoskeletal we have obtain an EKG which is normal we'll change in tinnitus chest x-ray does not show pulmonary edema. The headache which she describes as a 6 of believe is due to the magnesium sulfate. We're in the process of obtaining a magnesium sulfate level. The plan for now is to continue Cytotec until she is dilated enough that we can add a Iglesias balloon. My plan is that if she has not made significant change by tomorrow afternoon in terms of dilatation and progressing towards delivery by recommendation would be section. I also have recommended that she obtain a PICC line if she is a very difficult in terms of IV access. Blood pressures have remained stable throughout. I do not feel that any additional treatment for her blood pressure is necessary at this point. Principal Problem: 33 weeks gestation of POA: Yes Assessment AND Plan: She is 33 weeks 0 days will require delivery Active Problems: Anemia during in third trimester POA: Yes Assessment AND Plan: Stable Severe preeclampsia, third trimester POA: Yes Assessment AND Plan: We will be treating her with the preeclamptic protocols that are in place Prematurity POA: Yes Assessment AND Plan: She is status post [place] ?2. She is not a candidate for magnesium sulfate for neural protection but she is on magnesium sulfate for seizure prevention Scoliosis POA: Yes Assessment AND Plan: We'll have anesthesia evaluate her sooner rather than later for her epidural History of MRSA infection POA: Yes Assessment AND Plan: We will assume that she has MSA immobile follow the protocols for that Resolved Problems: * No resolved hospital problems. * SUBJECTIVE: No current vaginal bleeding, No current leaking of fluid, No contractions, Good movement, No shortness of breath or chest pain, No calf tenderness and secondary to the magnesium sulfate that she is on OBJECTIVE: LAST VITALS: Pulse BP Resp O2 Sat Temp Pain 78 133/81 16 90 % 36.5 ?C (97.7 ?F) 7 PHYSICAL EXAM: General: WD, WN, NAD Heart: RR, S1, S2 Lungs: normal pulmonary exam and clear to auscultation Abdomen: soft, nontender, no masses Uterus: soft, NT Extremities: 2+ edema MONITORING/ASSESSMENT: heart rate present and appropriate LABS Diagnostic tests reviewed for today's visit: Most recent labs and imaging results. SIGNATURE: George Nguyễn Jr, MD PATIENT NAME: Eb Hui DATE: July 08, 2019 TIME: 9:19 AM [facility] PROGRESS HNO ID: [id number] Author: Gillian Whitfield Service: Obstetrics Author Type: Resident Type: Progress Notes Filed: 07/08/2019 9:06 AM Note Text: Pt has difficult vascular access and will have a PICC inserted per Dr. Nguyễn. Gillian Whitfield MD 07/08/2019 9:06 AM Obstetrics and Gynecology PGY3 Pager #[phone] [facility] PROGRESS HNO ID: [id number] Author: Gillian Whitfield Service: Obstetrics Author Type: Resident Type: Progress Notes Filed: 07/08/2019 8:27 AM Note Text: S: Called to evaluate patient for oxygen desaturation. Her Sp02 is 90-95%. She states that she has developed a cold/cough over the past day or so. She feels congested and is coughing up yellow/green mucus. She has also had some chest discomfort as noted from the note at 0341 today. She feels flushed but denies fevers/chills. O: BP 129/72 Pulse 87 Temp 36.5 ?C (97.7 ?F) Resp 16 Ht 170.2 cm (5' 7) Wt 92.1 kg (203 lb) SpO2 92% BMI 31.79 kg/m? Gen: NAD, appears tired CV: RRR Lungs: isolated crackles at bilateral bases that cleared with deep inspiration, otherwise CTAB Ext: DTRs 2+ per RN A/P: 19 year old with 1. Oxygen desaturation -Check CXR and magnesium level -Start incentive spirometry and add Mucinex for congestion -Start supplemental O2 via NC if SpO2 is <95% 2. Remainder of A/P per other notes Discussed with Dr. Nguyễn. Gillian Whitfield MD 07/08/2019 8:26 AM Obstetrics and Gynecology PGY3 Pager #[phone] [facility] PROGRESS HNO ID: [id number] Author: Jorje Toledo DO Service: Obstetrics Author Type: Resident Type: Progress Notes Filed: 07/08/2019 3:43 AM Note Text: On initial interview, patient had denied any chest pain. However with program aide group work, patient endorsed aching chest pain that began last night. Will obtain EKG at this time. SIGNATURE: Jorje Toledo DO PATIENT NAME: Eb Hui DATE: 07/08/2019 TIME: 3:43 AM PAGER: [phone] [facility] PROGRESS HNO ID: [id number] Author: Nati NegreteRnMeng Huffman RN Service: Nursing Author Type: Registered Nurse Type: Progress Notes Filed: 07/08/2019 2:35 AM Note Text: Pt arrived from [facility] as a transfer. Pt with IV in place on admission as well as Magnesium running at 2Gm/hr and LR at 10cc/hr. [facility] Type and Screenon 07-08-2019 ABO group Nom (Bld) A [facility] Comment on above: Performed By: #### T &S #### [place] [address] Comment See Below [facility] Comment on above: Result Comment: Scre en &/or Xmatch expires in 3 days at 12 midnight. Redraw patient at that time. Performed By: #### T &S #### [place] [address] RH Type Positive [facility] Comment on above: Performed By: #### T &S #### [place] [id number] XR CHEST 1V FRONTALon 2018 XR CHEST 1V FRONTAL * * *Final Report* * * DATE OF EXAM: Jul 08 2019 8:36AM AKX [id number] - XR CHEST 1V FRONTAL / PROCEDURE REASON: Acute respiratory illness * * * * Physician Interpretation * * * * EXAMINATION: CHEST RADIOGRAPH (SINGLE VIEW AP OR PA) CLINICAL HISTORY: Acute respiratory illness, Cough, new onset, Shortness of breath MQ: XC1_5 Comparison: 10/12/2009 RESULT: Lines, tubes, and devices: None. Lungs and pleura: Opacities noted medially at both lung bases. Upper lungs are clear. Cardiomediastinal silhouette: Heart size normal. Other: None. IMPRESSION: Opacities noted at both lung bases with some degree of perivascular/peribronchial densities. The findings are most suspicious for pneumonia. Correlate clinically. Trolley Cleaner: PSCB Transcribe Date/Time: Jul 08 2019 9:15A Dictated by : MEDINA TAMAYO MD This examination was interpreted and the report reviewed and electronically signed by: MEDINA TAMAYO MD on Jul 08 2019 9:16AM EST [facility] CULTURE URINEon 05-06-2018 CULTURE URINE CULTURE URINE _URINE CULTURE_ M I C R O B I O L O G Y R E P O R T FINAL --------- Antimicrobial Susceptibility and Organism Identification Report -------- Specimen Number : [id number] Requested : 05/06/18 Specimen Source : URINE Collected : 05/06/18 19:34 Arriaga of Isolation : OUTPATIENT Received : 05/06/18 19:34 Requesting Physician : CRISTA Patient/Specimen Tests and Comments Specimen Comments -------- -------- FINAL REPORT: URINE COLONY COUNT: 50,000-100,000 CFU/CC >OR=TO 3 COLONY TYPES PROBABLE CONTAMINATION Tech : Source : URINE ID # : [id number] FINAL Report Date : / / : Collected : 05/06/18 19:34 05/09/18.0929.JLN. 05/08/18.1041.JLN. 05/09/18.0929.JLN.COMPLETE Normal [facility] Comment on above: Performed By: #### [id number] ####[facility],[address] [place] [address] Discharge Summaryon 02-29-20 18 Digital Asset Manager Authentication Interface Message Text Discharge/Transfer SummaryName: Eb Bowie Nakia#: [id number] : 2000Room #: 6221/01 Age/Sex: 18 y.o. femaleAdmit Date: 02/26/2018 Admitting: LAWANDA Changischarge Date: 02/28/2018[facility]Attending[facility] Amy Sharp MDFinoscar Diagnosis:Right peritonsillar venous malformationPossible superadded viral URI with enlarged adenoids and lingual tonsilsSignificant Findings (Problem List):Active Hospital Problems Diagnosis Tonsillitis Venous malformationResolved Hospital Problems Diagnosis Date ResolvedNo resolved problems to display.Reason for Hospitalization:Tonsilliti sDischarge Condition:GoodHospital Course (Care, treatment and services provided):Brief Narrative Hospital Course:Eb is an 18yo female with history of mononucleosis who presented with twoweeks of fatigue, throat pain and muffled voice. She reports this as a chronicissue over the past couple of years with sticking sensation in her throat andintermittent throat swelling. She was seen by PCP one week prior to admissionwith a positive monospot, negative strep. Symptoms continued to worsen and shewas seen outpatient by Infectious Disease who admitted her for furtherevaluation.During admission patient noted to have lingual tonsillar swelling. CT neckshowed calcified region concerning for venous malformation. CBC negative foratypical's or leukocytosis, CRP and CMP unremarkable with negative monospotduring admission making infectious cause unlikely. MRI obtained and confirmedvenous malformation in the right peritonsillar region with lingual tonsillaredema. ENT was consulted and recommended Medrol Emiliano to help with swelling andoutpatient follow up with an Adult ENT in 1 month. Patient remained stable withno respiratory distress. She did complain of vaginal itching and reported nevercompleting flagyl course 2 weeks prior, so she was prescribed 7 days of flagylfor discharge. All questions and concerns were addressed prior to discharge.Treatments and procedures with outcomes:No significant invasive proceduresImmunizations(ad ministered this admission): noneSignificant Imaging Results:MRI Neck With and Without ContrastFinal ResultIMPRESSION:1. 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 Significant adenoid and lingular tonsillar enlargement.3. Bilateral neck adenopathy most prominent in the left upper jugular chain.Recommend ongoingfollow-up for the adenopathy to document resolution/decrease in size aftertreatment.This report has been created using voice recognition softwareCT Soft Tissue Neck With ContrastFinal ResultIMPRESSION:1. Right peritonsillar mass with calcifications. Leading consideration is avenousmalformation with phleboliths. Differential also includes other calcified softtissue masses.Recommend further evaluation with MRI.2. Mild leftward deviation and narrowing of the oropharynx.3. Enlarged adenoid and palatine tonsils.Dr. Contreras communicated findings with Dr. Wallace on 02/26/2018 at 5:12 PM withverbalconfirmation.T his report has been created using voice recognition softwarePending Test Results and Tests to Obtain as Outpatient:NoneDisposition :She was discharged to home.Discharge Medications:She did have significant changes to their home medications (see below)Medication ListSTART taking these medications Morning Afternoon Evening Bedtime As NeededmethylPREDNISolone 4 MG Dose-Emiliano (21 EACH)Take 1 Tab (4 mg) by mouth daily for 5 days Follow printed directions onpackage.Commonly known as: MEDROL [ ] [ ] [ ] [ ] [ ]metroNIDAZOLE 500 MG tabletTake 1 Tab (500 mg) by mouth every 12 hours for 7 daysCommonly known as: FLAGYL [ ] [ ] [ ] [ ] [ ]CONTINUE taking these medications which HAVE NOT changed at this visit Morning Afternoon Evening Bedtime As Neededalbuterol 108 (90 Base) MCG/ACT inhalerInhale 2 Puffs into the lungs every 4 hours as needed for Wheezing Use withspacer.Commonly known as: PROAIR HFA;VENTOLIN HFA;PROVENTIL HFA [ ] [ ] [ ] [ ] [ ]EASIVENT DeviceUse with inhaled medication as instructed. [ ] [ ] [ ] [ ] [ ]ibuprofen 200 MG tabletTake 3 Tabs (600 mg) by mouth every 6 hours as needed for Pain Take with meals.Commonly known as: MOTRIN [ ] [ ] [ ] [ ] [ ]Where to Get Your MedicationsThese medications were sent to [facility] [address] methylPREDNISolone 4 MG Dose-Emiliano (21 EACH) metroNIDAZOLE 500 MG tabletDischarge Instructions:Instructions/ Follow Up Future Labs/Procedures Expected by Expires [place] Law: Child Safety Seat Instructions As directed Comments: It is the [place] Law that every child under 8 years old must ride in anappropriate child safety seat unless the child is 4'9 or taller. Every childfrom 8-15 years old who is not secured in a child safety seat must be secured inthe vehicle's seat belt. [facility] advises that all motorvehicle passengers be restrained. 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 Please call and schedulean appointment for follow up in a month. If you have questions about where to beseen the contact number for our pediatrics department is below, they can helpdirect you.[facility] [address], [address] [address]Eflke: [phone] have been prescribed Flagyl for Bacterial Vaginosis, please take this twicedaily for 7 days. Please follow up with your established Rn Building.Please call your primary care physician Carolann Matthew MD for a follow upappointment in 2-3 days.Carolann Matthew MD[address] [facility] [phone] you are having any difficulty breathing or swallowing please seek emergencyattention.Dischar ge Orders Future Labs/Procedures Expected by Expires Activity as tolerated As directed AMB Referral To ENT As directed 02/28/2019 Call MD For: New Problem As directed Call MD For: Not Drinking or No Urination As directed Call MD For: Temperature >100.4 As directed Call MD for: Difficulty Breathing As directed Call MD: for Headaches or Visual Disturbances As directed Regular diet for age As directedSigned:Rosi Soliman MD2:45 PM02/28/2018 Normal [facility] EBV (VCA) IgG Abon 8 EBV (VCA) IgG Ab [id number] ISR Normal [facility] Comment on above: Result Comment: POSI TIVEReference Range:Negative: <0.90 ISREquivocal: 0.90-1.09 ISRPositive: >1.09 ISRInterpretation:Results are best interpreted in conjunction with EBV IgMantibody results.-Results suggest prior exposure to Saeed-Pereiar Virus.However, a second serum specimen should be tested in 10-14days if clinically indicated.In most populations, at least 90% of the adult populationwill have been infected with EBV sometime in the past andtherefore, will be positive for anti-VCA/IgG and anti-EBNA. Antibodies to EBNA develop 6-8 weeks after primaryinfection and remain present for life. Presence of VCA/IgM antibodies indicates recent primary infection withEBV. Performed By: #### E BVIG ####[address] [phone] EBV (VCA) IgM Abon 8 EBV (VCA) IgM Ab 1.725918 ISR Normal [facility] Comment on above: Result Comment: POSI TIVEReference Range:Negative: <0.90 ISREquivocal: 0.90-1.09 ISRPositive: >1.09 ISRInterpretation:Results are best interpreted in conjunction with EBV IgGantibody results.-Results suggest recent exposure to Saeed-Pereira Virus.However, a second serum specimen should be tested in 10-14days if clinically indicated.In most populations, at least 90% of the adult populationwill have been infected with EBV sometime in the past andtherefore, will be positive for anti-VCA/IgG and anti-EBNA. Antibodies to EBNA develop 6-8 weeks after primaryinfection and remain present for life. Presence of VCA/IgM antibodies indicates recent primary infection withEBV. Performed By: #### E BVIM ####[address] [phone] EBV Nuclear Ag Abson 018 EBV Ab-Nuclear Ag >8.0 Normal [facility] Comment on above: Result Comment: AI V ALUES ARE INTERPRETED FOLLOWS:NEGATIVE SPECIMENS <=0.8EQUIVOCAL SPECIMENS 0.9 TO 1.0POSITIVE SPECIMENS >=1.1 Antibody index(AI) values reflect qualitative changes in antibody concentration that cannot be associated with clinical condition or disease state. Performed By: #### E BVNA ####[address] [phone] EBV Ab-Nuclear Ag, Qual Positive Abnormal NEGAT [facility] Comment on above: Result Comment: Spec imen is positive for EBV NA-1 IgG antibody. A positive test result presumes a current or past infection with EBV. Other EBV serology assays such as the EBV VCA IgM should be performed to confirm serologic status, active acute, past or indeterminate infection for EBV-associated infectious mononucleosis.Testing Performed:[facility] [id number] [place] [address] Performed By: #### E BVNA ####[facility] [address] [place], [place] [phone] MRI NECK WITH AND WITHOUT CO NTRASTon 02-28-2018 MRI NECK WITH AND WITHOUT CONTRAST CLINICAL HISTORY: sore throat x2 weeks, CT w/ R peritonsillar mass w/calcificationTECHNIQUE: MRI of the neck was performed at 3.0 [place] prior to and followingintravenous contrast.COMPARISON: CT of the neck 02/26/2018FINDINGS:There is confirmation of soft tissue mass centered in the right shoelace tipping machine operator space measuring 3.3 cm AP by 4.1 cm transverse (image 7 of series 5) by 6.8 cmcranioaudal (image 23 series 29). Mass demonstrates diffusely hyperintense. [id number] with foci of known calcification within the mass, intermediate T1 signaland a linear areas of enhancement. Notable that there seems to be progressivefill-in of contrast on the delayed postcontrast sagittal image, performedapproximately 10 minutes after the initial axial postcontrast images. There isobliteration of the right parapharyngeal space and peritonsillar fat plane. Themass displaces the pharyngeal mucosal space medially, but with apparentpreservation of the fascial plane between the mass and pharyngeal space. It isdifficult to separate the mass from the adjacent right pterygoid musculature,which also has interdigitation of increased signal within the muscle. It isnotable that fat along the right mandibular foramen is preserved. Mass abuts the anterior margin of the right upper carotid space with preservation of fascialpane..PHARYNX, LARYNX: Normal.TONSILS and ADENOIDS: Moderately to significantly enlarged. Focal cystic changes seen in the left lingular tonsil.CERVICAL AIRWAY: There is narrowing of the nasopharyngeal and oropharyngealrelated to adenoid enlargement. At the level of the mass, airway is displaced to the left, but patent.THYROID GLAND: Normal.SUBMANDIBULAR GLANDS: Normal.PAROTID GLANDS: Normal.LYMPH NODES: There are enlarged bilateral jugular chain lymph nodes. The largest on the left is just posterior to the submandibular gland and measures 1.7 x1.8cm (image 15 of series 5) by 4.2 cm (image 4 series 9). The largest on theright is at the same level measures 1.6 x 1.9 cm (image 17 of series 5) by 3.5cm (image 29 of series 9). There are also enlarged lymph nodes along the medialmargin of internal carotid arteries. The largest on the left at the level of F2qwhxwshm 1.3 x 1.4 cm (image 3 of series 5) by 4.3 cm (image 9 of series 9).VASCULAR STRUCTURES: Normal.CERVICAL SPINE: Vertebrae are normal in alignment with normal marrow signal.Visualized spinal cord is unremarkable. Small disc protrusion likely at C7-T1and possibly at C6-7.ORBITS: Visualized portions appear normal.PARANASAL SINUSES: Mostly clear with a small amount of debris in the rightmaxillary sinus.SKULL BASE: Cerebellar tonsils are above the foramen magnum. There is a 5 mm nonspecific cyst in the deep subcutaneous tissues anterior tote mandibular teeth in the lower lip (image 9 series 5).IMPRESSION:1. Right neck mass centered in the shoelace tipping machine operator space with characteristics on CTand MRI which favor venous malformation.2. Significant adenoid and lingular tonsillar enlargement.3. Bilateral neck adenopathy most prominent in the left upper jugular chain.Recommend ongoing follow-up for the adenopathy to document resolution/decreasein size after treatment.This report has been created using voice recognition softwareSigned by: Dr. Crystal Prieto at 02/28/2018 09:28 Normal [facility] C-Reactive Proteinon 018 C reactive protein (CRP) mg/L Normal 0.0-1.0 [facility] Comment on above: Result Comment: CRP determinations in neonates should be interpreted withcaution. CRP may be elevated in circumstances not associatedwith inflammation (e.g. difficult delivery, pneumothorax). Inpremature neonates CRP levels may not rise to abnormal levelseven if sepsis is present; some speculate that immature liverfunction decreases the ability to generate a CRP response. Performed By: #### C ####[facility] [place], [place] [phone] CT SOFT TISSUE NECK WITH CON TRASTon 02-26-2018 CT SOFT TISSUE NECK WITH CONTRAST CLINICAL HISTORY: 18 yo with tonsillar swelling, muffled voice concern for deepneck infectionCOMPARISON: NonePROCEDURE COMMENTS: CT of the neck was performed with intravenous contrast.Sagittal and coronal reformats are included. Estimated DLP: 150.5 mGy-cmFINDINGS:There is a right peritonsillar mass with soft tissue attenuation, whichobliterates the parapharyngeal fat plane and contains a multiple chunkycalcifications. Some of the calcifications have central lucencies. The massmeasures approximately 4.3 x 4.1 x 6 cm in maximum oblique and craniocaudaldimensions (see series 3 image 37 and series 6 image 28). There few prominentvessels within the mass. The oral pharynx is partially in narrowing at the level of the mass and is deviated to the left. There may be mild remodeling of thepoterior undersurface of the mandible secondary to the mass. There is no bonydestruction or periosteal reaction.Mild prominence of the right jugular digastric lymph node which measures 1.3 x1.8 cm. The left jugular chain lymph node is similar in size. The remainingjugular chain lymph nodes are subcentimeter in short axis. A right posteriorlateral triangle lymph node measures 4 x 9 mm (series 3 image 55).The adenoid and left palatine tonsils are enlarged and demonstrate normalenhancement. The prevertebral soft tissues are normal. Epiglottis andaryepiglottic folds are normal. Calcification of the laryngeal cartilage isnoted.Visualized portions of the brain are and orbits appear normal. Lung apices areclear. The nasal septum is deviated to the left. The paranasal sinuses andmastoid air cells are clear. There is reversal of the normal cervical lordosis,which may be secondary to positioning. Vasculature is patent.IMPRESSION:1. Right peritonsillar mass with calcifications. Leading consideration is avenous malformation with phleboliths. Differential also includes other calcified soft tissue masses. Recommend further evaluation with MRI.2. Mild leftward deviation and narrowing of the oropharynx.3. Enlarged adenoid and palatine tonsils.Dr. Contreras communicated findings with Dr. Wallace on 02/26/2018 at 5:12 PM withverbal confirmation.This report has been created using voice recognition softwareSigned by: Dr. Virginia Contreras at 02/26/2018 17:23 Normal [facility] Comp Metabolic Panelon 02-26 Alanine aminotransferase (ALT) 13 U/L Normal 0-31 [facility] Comment on above: Performed By: #### C MP ####[address] [phone] Albumin 3.7 g/dL Normal 3.5-5.0 [facility] Comment on above: Performed By: #### C MP ####[address] [phone] Alkaline phosphatase (ALP) 61 U/L Normal 35-104 [facility] Comment on above: Performed By: #### C MP ####[address] [phone] Aspartate aminotransferase (AST) 14 U/L Normal 0-31 [facility] Comment on above: Performed By: #### C MP ####[address] [phone] Bili,Total 0.6 mg/dl Normal 0.0-1.0 [facility] Comment on above: Result Comment: Yoel ature : 1 Day 1.0-6.0 mg/dl 2 Day 6.0-8.0 mg/dl 3-5 Day 10.0-15.0 mg/dl Performed By: #### C MP ####[address] [phone] Calcium 9.0 mg/dL Normal 7.6-11.0 [facility] Comment on above: Performed By: #### C MP ####[address] [phone] Chloride 101 mmol/L Normal 96-108 [facility] Comment on above: Performed By: #### C MP ####[address] [phone] CO2 24.5 mmol/L Normal 22.0-29.0 [facility] Comment on above: Performed By: #### C MP ####[address] [phone] Creatinine 0.78 mg/dL Normal 0.50-1.00 [facility] Comment on above: Result Comment: Yoel ature 0.3-1.0 mg/dL Performed By: #### C MP ####[address] [phone] Glucose mass conc 82 mg/dL Normal 70-99 [facility] Comment on above: Result Comment: David morales for Diagnosis of Diabetes(Effective 02/26/11):Fasting specimen (no caloric intake for at least 8 hours). <100 mg/dl Normal 100-125 mg/dl Increased Risk for Diabetes >125 mg/dl Diagnostic for DiabetesRandom Glucose (any time of day without regard to last meal). >=200 mg/dl plus Classic Symptoms of Diabetes Performed By: #### C MP ####[address] [phone] Potassium molar conc 3.7 mmol/L Normal 3.3-5.1 [facility] Comment on above: Performed By: #### C MP ####[address] [phone] Protein 7.5 g/dL Normal 5.9-8.4 [facility] Comment on above: Performed By: #### C MP ####[address] [phone] Sodium 135 mmol/L Normal 133-145 [facility] Comment on above: Performed By: #### C MP ####[address] [phone] Urea nitrogen 9 mg/dL Normal 4-19 [facility] Comment on above: Performed By: #### C MP ####[address] [phone] Complete Blood Counton 02-26 Differential Complete Manual Normal [facility] Comment on above: Performed By: #### C BC ####[address] [phone] Erythrocyte distribution width Auto Ratio (RBC) 12.5 % Normal 0.0-14.4 [facility] Comment on above: Performed By: #### C BC ####[address] [phone] Erythrocytes (RBC) 4.62 10E12/L Normal 4.00-4.90 [facility] Comment on above: Performed By: #### C BC ####[address] [phone] Hematocrit (HCT) 40.4 % Normal 36.0-44.0 [facility] Comment on above: Performed By: #### C BC ####[address] [phone] Hemoglobin mass conc (Bld) 13.6 g/dL Normal 12.0-15.0 [facility] Comment on above: Performed By: #### C BC ####[address] [phone] Immature granulocytes/100 WBC (Bld) 0.30 % Normal [facility] Comment on above: Result Comment: Amanda ture Granulocyte Percent includes promyelocytes, myelocytes,and metamyelocytes. IG% > 1.0 indicates a left shift ispresent. With automated differentials, bands are includedin the neutrophil count and not in the Immature GranulocytePercent. Performed By: #### C BC ####[address] [phone] MCH 29.4 pg Normal 26.0-34.0 [facility] Comment on above: Performed By: #### C BC ####[address] [phone] MCHC mass conc (RBC) 33.7 % Normal 31.0-37.0 [facility] Comment on above: Performed By: #### C BC ####[address] [phone] MCV 87.4 fL Normal 80.0-100.0 [facility] Comment on above: Performed By: #### C BC ####[address] [phone] Nucleated RBC % 0.0 % Normal -1.0-0.0 [facility] Comment on above: Performed By: #### C BC ####[address] [phone] Platelet mean volume (PMV) 9.4 fL Normal [facility] Comment on above: Result Comment: MPV is plateletrange and agedependent Performed By: #### C BC ####[address] [phone] Platelets 251 10*3/uL Normal 150-450 [facility] Comment on above: Performed By: #### C BC ####[address] [phone] WBC (Leukocytes) 7.8 10*3/uL Normal 4.5-11.0 [facility] Comment on above: Performed By: #### C ####[facility] LORIN Lundberg [phone] H&Hiro 02-26-2018 Digital Asset Manager Authentication Interface Message Text HISTORY AND PHYSICALDATE OF SERVICE: 02/26/2018ATTENDING PROVIDER: Amy Sharp MDPRIMARY CARE PROVIDER: Carolann Matthew [facility] COMPLAINT: Fatigue, throat pain and muffled voiceREASON FOR HOSPITALIZATION: Acute or unresolved changes in physiologic statusHISTORY OF PRESENT ILLNESS:Eb is a 18 y.o. female with a history of mononucleosis who presents with 2weeks of fatigue, throat pain and muffled voice with associated positivemonospot. The history is provided by the patientTwo weeks prior to admission patient reports she started feeling fatigued andweak. This progressed the following day to throat pain, headache and muffledvoice. She went to see her PCP two days into the onset of symptoms on 02/19 forevaluation. Rapid strep neg and monospot positive. Patient has a history of twoprevious positive monospot's, the last 2 years prior. Her PCP recommended restand ceasing physical activity for 4-6 weeks. She reports since this visit shehas had worsening of throat pain, swelling and muffled voice. She also endorsesnausea and decreased PO secondary to discomfort. She denies any fevers or SOB.On day of admission patient was seen at Infectious Disease clinic due to due topersistent symptoms and recurrent positive monospot. She was noted to have necklymphadenopathy and swollen tissue in the inferior posterior oropharynx that wastouching at midline with asymmetric cervical LAD. She had no SOB at this time.There was concern for potential bacterial infection at this time and she wasadmitted to the Infectious Disease service for further management.On arrival to the floors she was well appearing and breathing comfortably on RA.She reports that she feels very tired and weak and has been sleeping all daylong for the past week. She reports decreased PO, but has been toleratingliquids and some solids. She also endorses some mild left upper quadrant pain,but only with palpation. She reports that she had a T&A six years prior.REVIEW OF SYSTEMS:General: Negative for fevers, chills, night sweats, recent weight changePositive for fatigue, muffled voiceHEENT: Negative for blurry vision, eye discharge, eye redness, ear pain, eardischarge Positive for nasal congestion and sore throat, difficulty swallowingHeart: Negative for palpitations, chest painLungs: Negative for cough, SOB, wheezingAbdomen: Negative for diarrhea, constipation Positive for abdominal pain andnauseaGU: Negative for dysuria, hematuria, urinary frequencyMusc: Negative for muscle aches, joint pain, decreased ROMNeuro: Negative for altered mental status, seizures Positive for headachesSkin: Negative for rashes, bruising, swellingMEDICAL/SURGICAL HISTORY:Past Medical History:Diagnosis Date Constipation Depression Headache Mononucleosis frequent RAD (reactive airway disease) ScoliosisInfectious history: multiple MRSA skin infections in the past, frequent UTI'sfor which she has undergone some workup with tufting machine operator single needle showing polyps in heruterus, and multiple episodes of BV.Past Surgical History:Procedure Laterality Date ADENOIDECTOMY TONSILLECTOMYBIRTH HISTORY:NoncontributoryDEV ELOPMENTAL HISTORY:Milestones: All met as expectedDIET HISTORY:Age appropriate / normal for ageDRUG/FOOD ALLERGIES:No Known AllergiesIMMUNIZATIONS:Imm unization HistoryAdministered Date(s) Administered DTaP 2000, 2000, 2000, 11/20/2001, 10/19/2004 HIB 2000, 2000, 2000, 11/20/2001 HPV 03/29/2014 Hepatitis B Ped/Adol 2000, 2000, 2000, 2000,11/20/2001 IPV 2000, 2000, 2000, 10/19/2004 MMR 06/20/2001, 10/19/2004 Meningococcal Conjugate ACWY Vaccine (MENACTRA) 05/28/2012 Pneumococcal Conjugate 06/20/2001, 10/10/2002 Tdap 05/28/2012 Varicella 06/20/2001, 03/29/2014MEDICATIONS:Pres criptions Prior to AdmissionMedication Sig Dispense Refill Last Dose albuterol 108 (90 Base) MCG/ACT inhaler Inhale 2 Puffs into the lungs every 4hours as needed for Wheezing Use with spacer. 1 Inhaler 0 Taking at prn only Spacer/Aero-Holding Chambers (EASIVENT) Device Use with inhaled medication asinstructed. 1 Each 0 Taking at prn only ibuprofen (MOTRIN) 200 MG tablet Take 3 Tabs (600 mg) by mouth every 6 hoursas needed for Pain Take with meals. 50 Tab 0 Taking at prn onlySOCIAL/FAMILY HISTORY:Eb lives with parentsSpecial Needs: NonePreferred Language: EnglishTravel: NoPets: Yes: 2 dogsDaycare: senior in ContentDJlifebrite [facility]OsteogenixS[facility] HistoryProblem Relation Age of Onset High Blood Pressure Mother Other Mother heart issues unknown diagnosis High Blood Pressure Father No known problems BrotherVITAL SIGNS:Vitals: 02/26/18 1140BP: 130/78Pulse: 72Resp: 20Temp: 36.1 C (97 F)PHYSICAL EXAM:General: awake and talkative, voice mildly muffled, in no acute distress.HEENT: atraumatic, normocephalic. Pupils equally reactive to light, EOMI, noconjunctival injection. TM clear with light reflex visualized bilaterally. Moistmucous membranes. Nares patent, No nasal discharge. Posterior pharynx withinferior tissue erythema and swelling touching at midline, exudate noted on theright posterior oropharynx. Neck supple, with bilateral cervical LAD L>R.Cardiac: Regular rhythm and rate for age. Normal S1 and S2. No murmurs noted. 2+peripheral pulses, cap refill <2 sec.Respiratory: Normal respiratory effort. No retractions noted. Good aerationthroughout. No rales, rhonchi, or wheezes.Abdomen: Abdomen soft and non-distended. Bowel sounds present. Palpable spleenwith tenderness to palpation in RUQ, as well as palpable liver edge.Extremities: Patient has full range of motion of all extremities.Neurologic: Normal tone and symmetrical strength. Normal reflexes.Skin: Skin is warm, dry and well perfused. No rashes noted.DIAGNOSTIC STUDIES REVIEWED:No new data for reviewASSESSMENT:Eb is a 18 y.o. female with history of T&A and mononucleosis who presentswith fatigue, throat pain/swelling and positive monospot. Based on patient'spresentation there is concern for EBV infection vs. deep neck bacterialinfection and she will require evaluation with CT neck and further lab work todistinguish bacterial vs. viral etiology. She is currently hemodynamicallystable on RA and requires admission for further monitoring and evaluation.PLAN:- Obtain CBC, CMP, CRP, and EBV titers IgM, IgG, and SOL.- NPO pending imaging- CT soft tissue neck today- SLIV- Will consider antibiotics pending results of imaging and labwork- Strict I/O's- Routine Vitals- If any evidence of airway obstruction or shortness of breath would considerDeGraham Soliman MD3:45 PM02/26/2018I was available to discuss the history and management plan on phone but did notexamine the patient. I fully endorse the care plan documented by the resident.Amy Sharp Normal [facility] HCG, Serumon 02-26-2018 HCG Qn Negative Normal [facility] Comment on above: Result Comment: Nonp regnant females and males-Negative females-Positive Performed By: #### H CGS ####[address] [phone] Manual Differentialon 2017 Anisocytosis presence Slight Normal [facility] Comment on above: Performed By: #### M DIFF ####[address] [phone] Lymphocytes/100 leukocytes 41 % Normal 24-44 [facility] Comment on above: Performed By: #### M DIFF ####[address] [phone] Metamyelocytes 0 % Normal 0-0 [facility] Comment on above: Performed By: #### M DIFF ####[address] [phone] Metamyelocytes/100 leukocytes 0 % Normal 0-0 [facility] Comment on above: Performed By: #### M DIFF ####[address] [phone] Monocytes/100 leukocytes 6 % Normal 3-6 [facility] Comment on above: Performed By: #### M DIFF ####[address] [phone] Neutrophils 4.1 Normal [facility] Comment on above: Performed By: #### M DIFF ####[address] [phone] Neutrophils band/100 leukocytes 1 % Low 5-11 [facility] Comment on above: Performed By: #### M DIFF ####[address] [phone] Polychromasia Occasional Normal [facility] Comment on above: Performed By: #### M DIFF ####[address] [phone] Promyelocytes 0 % Normal 0-0 [facility] Comment on above: Performed By: #### M DIFF ####[address] [phone] Segmented Neutrophils/100 leukocytes 52 % Normal 35-66 [facility] Comment on above: Performed By: #### M DIFF ####[address] [phone] Garrard-Screenon 02-26-2018 Garrard-Screen Negative Normal Negative [facility] Comment on above: Result Comment: If i ndicated,an EBV IgM may be of diagnostic value. Performed By: #### M SPOT ####[address] [phone] Progress Noteon 02-26-2018 Digital Asset Manager Authentication Interface Message Text Eb Hui is here for consultation at the request of Carolann Matthew MDfor: No chief complaint on file.AssessmentRecurrent mono, muffled voice and possible impending airway compromise RO neckmassPlanAdmit, image. labsHistory of Present IllnessMain complaint is ongoing illnesses and recurrent symptoms of mono, andespecially muffled voice, beginning in possibly years ago but this episode beganin May had pos mono spot 02/07. Now has muffled voice and no energy, and STcongestion. Eating ok but not as hungry. nO fever and weight is stable.Hospitalized for migraines utis . Home schooled, and this was due to freqabsences. Out of activities at least 3 times. She has no trouble breathing orSOB in supine. She says she had tonsillectomy.The history is provided by the patient. No freelance interpreter/translator was used.Review of SystemsReview of Systems:Constitution: Negative for fever and chills.Eyes: Negative for redness.Respiratory: Negative for cough and chest congestion.Skin: Negative for itching, rash and skin lesions.HENT: Positive for ear pain, nasal congestion and sore throat.Heme/Lymph: Positive for adenopathy.Musculoskeletal : Positive for myalgias. Negative for joint pain and jointswelling.Gastrointest inal: Positive for nausea. Negative for vomiting and diarrhea.Neurological: Positive for headaches. Negative for seizures.Recent Lab ResultsLast CBC:Last CRP:C-Reactive Protein (mg/dL)Date Value02/26/2018 <0.5Recent Imaging FindingsNo results found.Physical ExaminationVitals: BP 130/80 Pulse (!) 120 Temp 36.1 C (97 F) (Temporal) Resp 23 Ht 167 cm Wt 70.2 kg LMP 02/02/2018 BMI 25.17 kg/m Physical ExamConstitutional: She appears well.HENT:Right Ear: Tympanic membrane normal.Left Ear: Tympanic membrane normal.Mouth/Throat: No tonsillar exudate. Throat is not red.Eyes: Conjunctivae are normal.Neck: Neck adenopathy (right ac greater than left but left is more tender.)present.Cardiovasc ular: Regular rhythm.No murmur heard.Pulmonary/Chest: Breath sounds normal. There is normal air entry.Abdominal: Soft. There is no hepatosplenomegaly. There is no tenderness.Neurological: She is alert.Skin: No rash noted. No pallor.Vitals reviewed: Blood pressure 130/80, pulse (!) 120, temperature 36.1 C (97 F), temperature source Temporal, resp. rate 23, height 167 cm, weight 70.2 kg,last menstrual period 02/02/2018.MedicationsOutp atient Encounter Prescriptions as of 02/26/2018Medication Sig Dispense Refill albuterol 108 (90 Base) MCG/ACT inhaler Inhale 2 Puffs into the lungs every 4hours as needed for Wheezing Use with spacer. 1 Inhaler 0 Spacer/Aero-Holding Chambers (EASIVENT) Device Use with inhaled medication asinstructed. 1 Each 0 ibuprofen (MOTRIN) 200 MG tablet Take 3 Tabs (600 mg) by mouth every 6 hoursas needed for Pain Take with meals. 50 Tab 0No facility-administered encounter medications on file as of 02/26/2018.Past Medical HistoryPast Medical History:Diagnosis Date RAD (reactive airway disease)Past Surgical HistoryPast Surgical History:Procedure Laterality Date ADENOIDECTOMY TONSILLECTOMYFamily Medical HistoryFamily HistoryProblem Relation Age of Onset High Blood Pressure Mother Other Mother heart issues unknown diagnosis High Blood Pressure Father No known problems BrotherSocial HistorySocial HistorySocial History Marital status: Single Spouse name: N/A Number of children: N/A Years of education: N/ASocial History Main Topics Smoking status: Current Every Day Smoker Smokeless tobacco: Never Used Comment: patient and parents Alcohol use Not on file Drug use: Unknown Sexual activity: Not on fileOther Topics Concern Not on fileSocial History Narrative No narrative on fileID HistoryInfectious Disease history normal: term/ csection Child Attends Daycare? No 12th grade Growth & development normal? yes Sick contacts: No Has the patient ever been hospitalized? Yes following T&A due to bleeding Patient lives with: mom and dad Pets: 2 dogs Travel: none Per parents, immunizations are up to date. Yes Influenza Vaccine YesImmunizationsImmunizati on HistoryAdministered Date(s) Administered DTaP 2000, 2000, 2000, 11/20/2001, 10/19/2004 HIB 2000, 2000, 2000, 11/20/2001 HPV 03/29/2014 Hepatitis B Ped/Adol 2000, 2000, 2000, 2000,11/20/2001 IPV 2000, 2000, 2000, 10/19/2004 MMR 06/20/2001, 10/19/2004 Meningococcal Conjugate ACWY Vaccine (MENACTRA) 05/28/2012 Pneumococcal Conjugate 06/20/2001, 10/10/2002 Tdap 05/28/2012 Varicella 06/20/2001, 03/29/201450 minutes was spent in counseling this patient/family and any othercaregiver(s) involved with this patient to satisfy all inquiries. In addition,the following items were performed before, during and after this visit: RecordReview, Analysis of lab data and/or prior imaging, Synthesis of current imagingfindings and Physical exam of patient or family member.Addison Meyers 2017 Normal [facility] Urinalysis,Automatedon 02-26 Erythrocytes (RBC) 0 10*6/uL Normal 0.0-20.0 [facility] Comment on above: Performed By: #### U FMIC ####[address] [phone] Urine, squamous cells in sediment 20 /uL Normal 0-20 [facility] Comment on above: Performed By: #### U FMIC ####[address] [phone] WBC (Leukocytes) 0.016 10*3/uL Normal 0.0-20.0 [facility] Comment on above: Performed By: #### U FMIC ####[address] [phone] Urinalysis,Completeon 2017 Volume 12 ml Normal 12 [facility] Comment on above: Performed By: #### U ACOM ####[address] [phone] Bilirubin,urine Negative Normal Negative [facility] Comment on above: Performed By: #### U ACOM ####[facility], [place] [phone] Hemoglobin mass conc (Bld) Negative Normal Negative [facility] Comment on above: Performed By: #### U ACOM ####[facility] [address] [phone] Protein,Ur Negative Normal Neg.-Trace [facility] Comment on above: Performed By: #### U ACOM ####[facility] [address] [phone] Urine, character Hazy Normal [facility] Comment on above: Performed By: #### U ACOM ####[facility] [address] [phone] Urine, color Straw Normal [facility] Comment on above: Performed By: #### U ACOM ####[address] [phone] Urine, glucose presence TRACE Normal Negative [facility] Comment on above: Performed By: #### U ACOM ####[facility] [address] [phone] Urine, ketones presence Negative Normal Negative [facility] Comment on above: Performed By: #### U ACOM ####[facility] [address] [phone] Urine, leukocyte esterase presence Negative Normal Negative [facility] Comment on above: Performed By: #### U ACOM ####[facility] [address] [phone] Urine, nitrite presence Negative Normal Negative [facility] Comment on above: Performed By: #### U ACOM ####[facility] [address] [phone] Urine, pH 8.0 Normal 5.0-8.0 [facility] Comment on above: Performed By: #### U ACOM ####[address] [phone] Urine, specific gravity >1.030 Normal 1.005-1.030 [facility] Comment on above: Performed By: #### U ACOM ####[address] [phone] Urine, urobilinogen 0.2 mg/dl Normal Negative [facility] Comment on above: Performed By: #### U ACOM ####[address] [phone] Urine Cultureon 02-26-2018 Urine culture, bacteria Urine Culture: 10,000 - 50,000 CFU/ml of Normal Skin/urogenital ziggy Source: URNMD Collected: 02/26/18 21:10 Site: Received : 02/26/18 22:41Urine Culture FINAL 02/28/18 08:27 10,000 - 50,000 CFU/ml of Normal Skin/urogenital ziggy present Normal [facility] Comment on above: Performed By: #### U RINE ####[address] [phone] eGFRon 02-26-2018 eGFR (non-black) 88.42 Normal [facility] Comment on above: Result Comment: Refe rence range:> 3 months:>90 ml/min/1.73m^2Ref. Range change [id number]/26/2018 Performed By: #### E GFR ####[address] [phone] Progress Noteon 02-19-2018 Digital Asset Manager Authentication Interface Message Text Patient ID: Eb Hui is a 18 y.o. female. Her chief complaint(s)include: Pharyngitis (headache)Assessment1. Infectious mononucleosis-like syndrome, chronic2. Sore throat3. Acute pharyngitis, unspecified etiology4. MononucleosisPlanCisosa was seen today for pharyngitis.Diagnoses and all orders for this visit:Infectious mononucleosis-like syndrome, chronic- AMB Referral To Infectious Disease; FutureSore throat- POCT rapid strep A antigenAcute pharyngitis, unspecified etiologyMononucleosisPos mono spotPt states she has had Garrard before and that this would be the 3rd time she hastested positive, the last being 2 years ago. No contact sports for 4-6 weeks.RTO for abdominal pain or other concerns.Return if symptoms worsen or fail to improve.SubjectiveShe is unaccompanied. PharyngitisThe onset has been acute. The duration has been 2 days. The pattern ispersistent. The course is worsening. Characterized by pain with swallowing,discomfort and aching. Aggravated by drinking and talking.The patient's symptoms have included fatigue and swollen lymph nodes. Thepatient's symptoms have included no fever. The patient's home management hasincluded ibuprofen.Primary Care Review of SystemsObjectiveVitals: 02/19/18 1059Temp: 36.7 C (98.1 F)TempSrc: TemporalWeight: 71.5 kgThere is no height or weight on file to calculate BMI.Physical ExamConstitutional: She appears well. She is active. No distress.HENT:Head: Atraumatic.Right Ear: Tympanic membrane normal.Left Ear: Tympanic membrane normal.Mouth/Throat: Mucous membranes are moist. No pharynx erythema.Eyes: Conjunctivae are normal.Neck: Neck adenopathy present.Cardiovascular: Normal rate and regular rhythm.No murmur heard.Pulmonary/Chest: Breath sounds normal. There is normal air entry.Abdominal: Soft. Bowel sounds are normal. There is no hepatosplenomegaly.Lymphad enopathy: Anterior cervical adenopathy present.Neurological: She is alert.Skin: No rash noted.Vitals reviewed: Temperature 36.7 C (98.1 F), temperature source Temporal,weight 71.5 kg, last menstrual period 01/21/2018. Normal [facility] Progress Noteon 06-03-2017 Digital Asset Manager Authentication Interface Message Text Patient ID: Eb Hui is a 17 y.o. female. Her chief complaint(s)include: Throat Pain.Assessment:1. Acute bacterial sinusitis2. Sore throat3. Acute upper respiratory infection4. Reactive airway disease, unspecified asthma severity, uncomplicatedPlan:Eb was seen today for throat pain.Diagnoses and all orders for this visit:Acute bacterial sinusitis- amoxicillin-clavulanate (AUGMENTIN) 875-125 MG tablet; Take 1 Tab (875 mg)by mouth 2 times daily for 10 daysSore throat- POCT rapid strep A antigenAcute upper respiratory infectionReactive airway disease, unspecified asthma severity, uncomplicated- albuterol 108 (90 Base) MCG/ACT inhaler; Inhale 2 Puffs into the lungsevery 4 hours as needed for Wheezing Use with spacer.- Spacer/Aero-Holding Chambers (EASIVENT) Device; Use with inhaledmedication as instructed.Return if symptoms worsen or fail to improve.Subjective:The patient's reason for visit is cough. She is unaccompanied. CoughThe onset has been gradual. The duration has been 3 days. The pattern ispersistent. The course is worsening.The patient's symptoms have included fever, fussiness, decreased appetite,difficulty sleeping, congestion, rhinorrhea, sore throat, cough, shortness ofbreath (pressure feeling on chest) and right ear pain. The patient's symptomshave included no decreased fluid intake, no eye discharge, no wheezing, noheadaches, no abdominal pain, no vomiting and no diarrhea.The patient has had a maximum temperature of 102 degrees. The temperature wastaken orally.The patient has been exposed to sick contacts with common cold at home . Thepatient's home management has included cough suppressants. The patient's pastmedical history is negative for no allergies, no asthma, no pneumonia and nopassive smoke exposure/ smoker. The patient's family history is negative forallergies and asthma.Primary Care Review of SystemsObjective:Physical ExamConstitutional: She appears well. She is active. No distress.HENT:Head: Atraumatic.Right Ear: Tympanic membrane normal.Left Ear: Tympanic membrane normal.Nose: Nasal discharge (thick, green nasal drainage) present.Mouth/Throat: Mucous membranes are moist.Eyes: Conjunctivae are normal.Cardiovascular: Normal rate and regular rhythm.No murmur heard.Pulmonary/Chest: Breath sounds normal. There is normal air entry.Neurological: She is alert.Vitals reviewed: Temperature 36.1 C (97 F), weight 73.4 kg. Normal [facility] Progress Noteon 03-21-2017 Digital Asset Manager Authentication Interface Message Text Patient ID: Eb Hui is a 17 y.o. female. Her chief complaint(s)include: Anxiety and Depression.Assessment:1. Depression, unspecified depression type2. Syncope, unspecified syncope type3. Tachycardia4. Fatigue, unspecified typePlan:Eb was seen today for anxiety and depression.Diagnoses and all orders for this visit:Depression, unspecified depression type- Discontinue: escitalopram (LEXAPRO) 10 MG tablet; Take 1 Tab (10 mg) bymouth daily- escitalopram (LEXAPRO) 10 MG tablet; Take 1 Tab (10 mg) by mouth daily- Behavioral/Emotional Assessment w Score - PHQ - 9Syncope, unspecified syncope type- TSH (Lab Collect); Future- T4, free (Lab Collect); Future- Complete Blood Count with Diff (Lab Collect); Future- Basic Metabolic Panel (Lab Collect); Future- EKG 12 lead (ECG); FutureTachycardia- TSH (Lab Collect); Future- T4, free (Lab Collect); Future- Complete Blood Count with Diff (Lab Collect); Future- Basic Metabolic Panel (Lab Collect); Future- EKG 12 lead (ECG); FutureFatigue, unspecified type- TSH (Lab Collect); Future- T4, free (Lab Collect); Future- Complete Blood Count with Diff (Lab Collect); Future- Basic Metabolic Panel (Lab Collect); Future- Saeed-Pereira virus VCA, IgG (Lab Collect); Future- Saeed-Pereira virus VCA, IgM (Lab Collect); FutureContinue with current medications. Obtaining EKG and some labs due to patientexperiencing tachycardia and syncope. Discussed cardiology appointmentdepending on test results and patient's symptoms. Will follow up as neededReturn in about 3 months (around 06/21/2017).Subjective:The patient's reason for visit is anxiety and depression. She is unaccompanied.AnxietyOnset : GradualMonths Duration: 6 monthsCharacterized by: Anxiety, Mood Swings and Depressed MoodCourse: Gradually ImprovingSymptoms: feeling anxious (with crowds) and irritability (improving)Symptoms: no feeling down, no feeling depressed, no restlessness, nohopelessness, no self-harm, no suicidal thoughts, no feeling nervous, no feelingafraid, no worthlessness, no visual hallucinations, no auditory hallucinationsand no paranoiaSymptoms comment: CurrentlyAssociated Symptoms: decreased self-esteem, fatigue, decreased schoolperformance, decreased motivation (improving) and increased sleepAssociated Symptoms: no anhedonia, no worthlessness, no decreased appetite, noovereating, no loss of job, no decreased sleep, no restricting foods, no purgingand no increase in risky behaviorsContributing Factors: no no identifiable stressorsPast Medical/Psychiatric History: no thyroid disease, no anxiety, no ADHD, nosuicide attempts, no self-harm and no psychiatric admissionsFamily History: depression, anxiety, bipolar and schizophreniaFamily History: no suicide attempts and no completed suicidesPrevious Treatments: counselingCurrent Treatments: SSRICurrent Treatments: no counselingImprovement with Treatment: ModerateCompliance: GoodFollow-Up: Taking medication as prescribed and Desires to stay in currenttreatment planFollow-Up: no CounselingMedication side effects: Jitters/Tremors (may slightly increased) and HeadacheMedication side effects: no Sedation, no Dry mouth, no Constipation, no GIdistress, no Nausea, no Restlessness, no Insomnia, no Weight gain (weightloss---patient trying) and no Increase suicidal thoughts 3Depression 3Primary Care Review of SystemsObjective:Physical ExamConstitutional: She appears well. She is active. No distress.HENT:Head: Atraumatic.Right Ear: Tympanic membrane and external ear normal.Left Ear: Tympanic membrane and external ear normal.Nose: Nose normal.Mouth/Throat: Mucous membranes are moist. Dentition is normal.Eyes: Conjunctivae and EOM are normal. Pupils are equal, round, and reactive tolight.Neck: Neck supple. No adenopathy.Cardiovascular: Normal rate, regular rhythm, S1 normal and S2 normal. Pulsesare palpable.Pulmonary/Chest: Effort normal and breath sounds normal.Abdominal: Soft. Bowel sounds are normal. She exhibits no distension and nomass. There is no tenderness.Musculoskeletal : She exhibits no deformity.Neurological: She is alert. She has normal strength. She exhibits normal muscletone.Skin: No rash noted. No cyanosis. No pallor. Skin is warm.Vitals reviewed: Blood pressure 130/66, pulse 118, height 166.5 cm, weight 72.6kg. Normal [facility] Progress Noteon 03-12-2017 Digital Asset Manager Authentication Interface Message Text Patient ID: Eb Hui is a 17 y.o. female. Her chief complaint(s)include: Fainting (at work; 1 hour ago, headache now).Assessment:1. Syncope, unspecified syncope typePlan:Eb was seen today for fainting.Diagnoses and all orders for this visit:Syncope, unspecified syncope typeRecommended eating breakfast containing fiber/protein such as oatmeal, eggs,kinyarwanda yogurt, drinking plenty of clear fluids/gatorade, eating snacks such asnuts, and getting at least 7-8 hours of sleep per night.Subjective:HPI Comments: Patient diagnosed with strep 03/06; prescribed augmentin. Reportsthroat feeling better.Fainted today at work. Hit back of head after fainting; now has a headache.Denies feeling warm. Ate a fruit snack this morning. Usually eats granola barsin the morning. Drinks a half gallon of water per day. Reports that sleepschedule is variable; sometimes gets more or less than 7-8 hours of sleep pernight.The patient's reason for visit is history of syncopal episodes. She isaccompanied by her father.FaintingThis problem is new. The duration has been <24 hours.The onset has been sudden. The course is improving. The patient's symptomshave included no vomiting.Primary Care Review of SystemsObjective:Physical ExamConstitutional: She appears well. No distress.HENT:Head: Atraumatic.Right Ear: Tympanic membrane normal.Left Ear: Tympanic membrane normal.Nose: No nasal discharge.Mouth/Throat: Throat is not red. Mucous membranes are moist.Eyes: Conjunctivae are normal. Pupils are equal, round, and reactive to light.Right eyelid exhibits no discharge. Left eyelid exhibits no discharge.Neck: No adenopathy.Cardiovascular: Normal rate and regular rhythm.No murmur heard.Pulmonary/Chest: Breath sounds normal. There is normal air entry. No stridor. Norespiratory distress. Air movement is not decreased. She has no wheezes. She hasno rhonchi. She has no rales. Exhibits no retraction.Neurological: She is alert.Skin: Skin is warm. Normal [facility] Influenza virus A and B and SARS-CoV-2 (COVID-19) Ag panel - Upper respiratory specim SARS-CoV-2 (COVID-19) RNA SOL+probe Ql (Resp) [facility] Work Phone: Vital Signs Date Time Vital Sign Value Performing Clinician Faci lity 03-01-2025 14:24-0400 Body height 167.64 cm Petty Ungerer WIND UP OPERATOR-C Work Phone: [facility] 03-01-2025 14:24-0400 Body mass index (BMI) [Ratio] 24.8 kg/m2 Petty Ungerer WIND UP OPERATOR-C Work Phone: [facility] 03-01-2025 14:24-0400 Body temperature 98.6 [degF] Petty Ungerer WIND UP OPERATOR-C Work Phone: [facility] 03-01-2025 14:24-0400 Body weight 69.85 kg Petty Ungerer WIND UP OPERATOR-C Work Phone: [facility] 03-01-2025 14:24-0400 Diastolic blood pressure 82 mm[Hg] Petty Ungerer WIND UP OPERATOR-C Work Phone: [facility] 03-01-2025 14:24-0400 Heart rate 90 /min Petty Ungerer WIND UP OPERATOR-C Work Phone: [facility] 03-01-2025 14:24-0400 Systolic blood pressure 122 mm[Hg] Petty Ungerer WIND UP OPERATOR-C Work Phone: [facility] 02-23-2025 06:20-0400 Body height 167.64 cm Petty Ungerer WIND UP OPERATOR-C Work Phone: [facility] 02-23-2025 06:20-0400 Body mass index (BMI) [Ratio] 25 kg/m2 Petty Ungerer WIND UP OPERATOR-C Work Phone: [facility] 02-23-2025 06:20-0400 Body temperature 98.2 [degF] Petty Ungerer WIND UP OPERATOR-C Work Phone: [facility] 02-23-2025 06:20-0400 Body weight 70.3 kg Petty Ungerer WIND UP OPERATOR-C Work Phone: [facility] 02-23-2025 06:20-0400 Diastolic blood pressure 76 mm[Hg] Petty Ungerer WIND UP OPERATOR-C Work Phone: [facility] 02-23-2025 06:20-0400 Heart rate 76 /min Petty Ungerer WIND UP OPERATOR-C Work Phone: [facility] 02-23-2025 06:20-0400 SaO2% (BldA) [Mass fraction] 100 % Petty Ungerer WIND UP OPERATOR-C Work Phone: [facility] 02-23-2025 06:20-0400 Systolic blood pressure 109 mm[Hg] Petty Ungerer WIND UP OPERATOR-C Work Phone: [facility] 12-17-2024 10:45-0400 Body temperature 97.8 [degF] WIND UP OPERATOR. Petty Ungerer WIND UP OPERATOR-C Work Phone: [facility] 12-17-2024 10:45-0400 Diastolic blood pressure 59 mm[Hg] WIND UP OPERATOR. Petty Ungerer WIND UP OPERATOR-C Work Phone: [facility] 12-17-2024 10:45-0400 Heart rate 69 /min WIND UP OPERATOR. Petty Ungerer WIND UP OPERATOR-C Work Phone: [facility] 12-17-2024 10:45-0400 Respiratory rate 16 /min WIND UP OPERATOR. Petty Ungerer WIND UP OPERATOR-C Work Phone: [facility] 12-17-2024 10:45-0400 SaO2% (BldA) [Mass fraction] 100 % WIND UP OPERATOR. Petty Ungerer WIND UP OPERATOR-C Work Phone: [facility] 12-17-2024 10:45-0400 Systolic blood pressure 111 mm[Hg] WIND UP OPERATOR. Petty Contreraserer WIND UP OPERATOR-C Work Phone: [facility] 12-17-2024 08:37-0400 Body height 167.64 cm WIND UP OPERATOR. Petty Contreraserer WIND UP OPERATOR-C Work Phone: [facility] 12-17-2024 08:37-0400 Body mass index (BMI) [Ratio] 24.5 kg/m2 WIND UP OPERATOR. Petty Contreraserer WIND UP OPERATOR-C Work Phone: [facility] 12-17-2024 08:37-0400 Body weight 68.8 kg WIND UP OPERATOR. Petty Contrersaerer WIND UP OPERATOR-C Work Phone: [facility] 12-16-2024 13:31-0400 Body height 166.2 cm Nella Hood MD Work Phone: [facility] 12-16-2024 13:31-0400 Body mass index (BMI) [Ratio] 25.03 kg/m2 Nella Hood MD Work Phone: [facility] 12-16-2024 13:31-0400 Body weight 69.13 kg Nella Hood MD Work Phone: [facility] 12-16-2024 13:31-0400 Diastolic blood pressure 68 mm[Hg] Nella Hood MD Work Phone: [facility] 12-16-2024 13:31-0400 Heart rate 76 /min Nella Hood MD Work Phone: [facility] 12-16-2024 13:31-0400 Respiratory rate 16 /min Nella Hood MD Work Phone: [facility] 12-16-2024 13:31-0400 Systolic blood pressure 112 mm[Hg] Nella Hood MD Work Phone: [facility] 10-26-2024 15:01-0500 Body mass index (BMI) [Ratio] 24.55 kg/m2 Yordan Smalls APRN.FINAL TOUCH UP PAINTER Work Phone: [facility] 10-26-2024 15:01-0500 Body temperature 98.2 [degF] Yordan Smalls APRN.FINAL TOUCH UP PAINTER Work Phone: [facility] 10-26-2024 15:01-0500 Body weight 71.1 kg Yordan Smalls APRN.FINAL TOUCH UP PAINTER Work Phone: [facility] 10-26-2024 15:01-0500 Diastolic blood pressure 72 mm[Hg] Yordan Smalls APRN.FINAL TOUCH UP PAINTER Work Phone: [facility] 10-26-2024 15:01-0500 Heart rate 60 /min Yordan Smalls APRN.FINAL TOUCH UP PAINTER Work Phone: [facility] 10-26-2024 15:01-0500 Respiratory rate 16 /min Yordan Smalls APRN.FINAL TOUCH UP PAINTER Work Phone: [facility] 10-26-2024 15:01-0500 SaO2% (BldA) [Mass fraction] 98 % Yordan Smalls APRN.FINAL TOUCH UP PAINTER Work Phone: [facility] 10-26-2024 15:01-0500 Systolic blood pressure 122 mm[Hg] Yordan Smalls APRN.FINAL TOUCH UP PAINTER Work Phone: [facility] 10-26-2024 08:12-0500 Body height 170.2 cm Petty Rubalcava APRN.CNM Work Phone: [facility] 10-26-2024 08:12-0500 Body mass index (BMI) [Ratio] 24.28 kg/m2 Petty Rubalcava APRN.CNM Work Phone: [facility] 10-26-2024 08:12-0500 Body weight 70.31 kg Petty Rubalcava APRN.CNM Work Phone: [facility] 10-26-2024 08:12-0500 Diastolic blood pressure 70 mm[Hg] Petty Rubalcava INTELLECTUAL PROPERTY LAWYER.CNM Work Phone: [facility] 10-26-2024 08:12-0500 Systolic blood pressure 112 mm[Hg] Petty Rubalcava INTELLECTUAL PROPERTY LAWYER.CNM Work Phone: [facility] 08-07-2024 11:34-0500 Body mass index (BMI) [Ratio] 24.59 kg/m2 Lynn Smalls MD Work Phone: [facility] 08-07-2024 11:34-0500 Body weight 71.22 kg Lynn Smalls MD Work Phone: [facility] 08-07-2024 11:34-0500 Diastolic blood pressure 82 mm[Hg] Lynn Smalls MD Work Phone: [facility] 08-07-2024 11:34-0500 Systolic blood pressure 124 mm[Hg] Lynn Smalls MD Work Phone: [facility] 12-23-2023 17:47-0400 Body temperature 99 [degF] Petty Uriostegui INTELLECTUAL PROPERTY LAWYER.FINAL TOUCH UP PAINTER Work Phone: [facility] 12-23-2023 17:47-0400 Body weight 76 kg Petty Uriostegui INTELLECTUAL PROPERTY LAWYER.FINAL TOUCH UP PAINTER Work Phone: [facility] 12-23-2023 17:47-0400 Diastolic blood pressure 78 mm[Hg] Petty Uriostegui INTELLECTUAL PROPERTY LAWYER.FINAL TOUCH UP PAINTER Work Phone: [facility] 12-23-2023 17:47-0400 Heart rate 81 /min Petty Uriostegui INTELLECTUAL PROPERTY LAWYER.FINAL TOUCH UP PAINTER Work Phone: [facility] 12-23-2023 17:47-0400 Respiratory rate 21 /min Petty Uriostegui INTELLECTUAL PROPERTY LAWYER.FINAL TOUCH UP PAINTER Work Phone: [facility] 12-23-2023 17:47-0400 SaO2% (BldA) [Mass fraction] 99 % Petty Uriostegui INTELLECTUAL PROPERTY LAWYER.FINAL TOUCH UP PAINTER Work Phone: [facility] 12-23-2023 17:47-0400 Systolic blood pressure 118 mm[Hg] Pettycierra Bojorquezgs INTELLECTUAL PROPERTY LAWYER.FINAL TOUCH UP PAINTER Work Phone: [facility] 11-03-2023 13:38-0500 Body temperature 99.1 [degF] Ricardo Campuzano INTELLECTUAL PROPERTY LAWYER.FINAL TOUCH UP PAINTER Work Phone: [facility] 11-03-2023 13:38-0500 Body weight 73.66 kg Ricardo Campuzano INTELLECTUAL PROPERTY LAWYER.FINAL TOUCH UP PAINTER Work Phone: [facility] 11-03-2023 13:38-0500 Diastolic blood pressure 88 mm[Hg] Ricardo Campuzano INTELLECTUAL PROPERTY LAWYER.FINAL TOUCH UP PAINTER Work Phone: [facility] 11-03-2023 13:38-0500 Heart rate 105 /min Ricardo Campuzano INTELLECTUAL PROPERTY LAWYER.FINAL TOUCH UP PAINTER Work Phone: [facility] 11-03-2023 13:38-0500 Respiratory rate 21 /min Ricardo Campuzano INTELLECTUAL PROPERTY LAWYER.FINAL TOUCH UP PAINTER Work Phone: [facility] 11-03-2023 13:38-0500 SaO2% (BldA) [Mass fraction] 98 % Ricardo Campuzano INTELLECTUAL PROPERTY LAWYER.FINAL TOUCH UP PAINTER Work Phone: [facility] 11-03-2023 13:38-0500 Systolic blood pressure 120 mm[Hg] Ricardo Campuzano INTELLECTUAL PROPERTY LAWYER.FINAL TOUCH UP PAINTER Work Phone: [facility] 08-21-2023 19:13-0500 Body temperature 98.1 [degF] Leif Sahu INTELLECTUAL PROPERTY LAWYER.FINAL TOUCH UP PAINTER Work Phone: [facility] 08-21-2023 19:13-0500 Body weight 74.21 kg Leif Sahu INTELLECTUAL PROPERTY LAWYER.FINAL TOUCH UP PAINTER Work Phone: [facility] 08-21-2023 19:13-0500 Diastolic blood pressure 74 mm[Hg] eLif Sahu INTELLECTUAL PROPERTY LAWYER.FINAL TOUCH UP PAINTER Work Phone: [facility] 08-21-2023 19:13-0500 Heart rate 100 /min Leif Sahu INTELLECTUAL PROPERTY LAWYER.FINAL TOUCH UP PAINTER Work Phone: [facility] 08-21-2023 19:13-0500 Respiratory rate 21 /min [facility] INTELLECTUAL PROPERTY LAWYER.FINAL TOUCH UP PAINTER Work Phone: [facility] 08-21-2023 19:13-0500 SaO2% (BldA) [Mass fraction] 98 % [facility] INTELLECTUAL PROPERTY LAWYER.FINAL TOUCH UP PAINTER Work Phone: [facility] 08-21-2023 19:13-0500 Systolic blood pressure 110 mm[Hg] [facility] INTELLECTUAL PROPERTY LAWYER.FINAL TOUCH UP PAINTER Work Phone: [facility] 07-28-2023 21:52-0500 Body height 167.64 cm No Primary Care Physician [facility] 07-28-2023 21:52-0500 Body mass index (BMI) [Ratio] 25.8 kg/m2 No Primary Care Physician [facility] 07-28-2023 21:52-0500 Body temperature 97.8 [degF] No Primary Care Physician [facility] 07-28-2023 21:52-0500 Body weight 72.57 kg No Primary Care Physician [facility] 07-28-2023 21:52-0500 Diastolic blood pressure 95 mm[Hg] No Primary Care Physician [facility] 07-28-2023 21:52-0500 Heart rate 71 /min No Primary Care Physician [facility] 07-28-2023 21:52-0500 Respiratory rate 16 /min No Primary Care Physician [facility] 07-28-2023 21:52-0500 SaO2% (BldA) [Mass fraction] 99 % No Primary Care Physician [facility] 07-28-2023 21:52-0500 Systolic blood pressure 138 mm[Hg] No Primary Care Physician [facility] 07-16-2023 19:25-0400 Body temperature 98.6 [degF] Liza BRANCH-C Work Phone: [facility] 07-16-2023 19:25-0400 Body weight 74.84 kg Liza Friedman PA-C Work Phone: [facility] 07-16-2023 19:25-0400 Diastolic blood pressure 80 mm[Hg] Liza Friedman PA-C Work Phone: [facility] 07-16-2023 19:25-0400 Heart rate 98 /min Liza Athy PA-C Work Phone: [facility] 07-16-2023 19:25-0400 Respiratory rate 16 /min Liza Athy PA-C Work Phone: [facility] 07-16-2023 19:25-0400 SaO2% (BldA) [Mass fraction] 99 % Liza Athy PA-C Work Phone: [facility] 07-16-2023 19:25-0400 Systolic blood pressure 122 mm[Hg] Liza Athy PA-C Work Phone: [facility] 06-12-2023 09:10-0400 Diastolic blood pressure 88 mm[Hg] No Primary Care Physician [facility] 06-12-2023 09:10-0400 Heart rate 74 /min No Primary Care Physician [facility] 06-12-2023 09:10-0400 Respiratory rate 16 /min No Primary Care Physician [facility] 06-12-2023 09:10-0400 SaO2% (BldA) [Mass fraction] 99 % No Primary Care Physician [facility] 06-12-2023 09:10-0400 Systolic blood pressure 132 mm[Hg] No Primary Care Physician [facility] 06-12-2023 06:46-0400 Body height 167.64 cm No Primary Care Physician [facility] 06-12-2023 06:46-0400 Body mass index (BMI) [Ratio] 26.4 kg/m2 No Primary Care Physician [facility] 06-12-2023 06:46-0400 Body temperature 96.6 [degF] No Primary Care Physician [facility] 06-12-2023 06:46-0400 Body weight 74.4 kg No Primary Care Physician [facility] 04-23-2023 14:52-0400 Body temperature 97.7 [degF] Elizabeth Gomez PA Work Phone: [facility] 04-23-2023 14:52-0400 Body weight 72.58 kg Ministerioisrita Aberegg PA Work Phone: [facility] 04-23-2023 14:52-0400 Diastolic blood pressure 62 mm[Hg] Krislyn Aberegg PA Work Phone: [facility] 04-23-2023 14:52-0400 Heart rate 72 /min Krislyn Aberegg PA Work Phone: [facility] 04-23-2023 14:52-0400 Respiratory rate 18 /min Krislyn Aberegg PA Work Phone: [facility] 04-23-2023 14:52-0400 Systolic blood pressure 110 mm[Hg] Krislyn Aberegg PA Work Phone: [facility] 03-03-2023 11:56-0400 Body temperature 97.8 [degF] [facility] 03-03-2023 11:56-0400 Diastolic blood pressure 78 mm[Hg] [facility] 03-03-2023 11:56-0400 Heart rate 78 /min [facility] 03-03-2023 11:56-0400 Respiratory rate 14 /min [facility] 03-03-2023 11:56-0400 SaO2% (BldA) [Mass fraction] 100 % [facility] 03-03-2023 11:56-0400 Systolic blood pressure 118 mm[Hg] [facility] 03-03-2023 08:40-0400 Body height 167.64 cm [facility] 03-03-2023 08:40-0400 Body mass index (BMI) [Ratio] 25.8 kg/m2 [facility] 03-03-2023 08:40-0400 Body weight 72.57 kg [facility] 02-21-2023 15:05-0400 Body temperature 98.01 [degF] Krislyn Aberegg PA Work Phone: [facility] 02-21-2023 15:05-0400 Body weight 72.94 kg Krislyn Aberegg PA Work Phone: [facility] 02-21-2023 15:05-0400 Diastolic blood pressure 86 mm[Hg] Krislyn Aberegg PA Work Phone: [facility] 02-21-2023 15:05-0400 Heart rate 98 /min Krislyn Aberegg PA Work Phone: [facility] 02-21-2023 15:05-0400 Respiratory rate 18 /min Krislyn Aberegg PA Work Phone: [facility] 02-21-2023 15:05-0400 SaO2% (BldA) [Mass fraction] 97 % Krislyn Aberegg PA Work Phone: [facility] 02-21-2023 15:05-0400 Systolic blood pressure 122 mm[Hg] Krislyn Aberegg PA Work Phone: [facility] 01-03-2023 10:56-0400 Body height 170.2 cm Pacc 1 Work Phone: [facility] 01-03-2023 10:56-0400 Body weight 75.3 kg Pacc 1 Work Phone: [facility] 01-03-2023 10:56-0400 Respiratory rate 16 /min Pacc 1 Work Phone: [facility] 01-03-2023 10:56-0400 SaO2% (BldA) [Mass fraction] 97 % Pacc 1 Work Phone: [facility] 09-16-2022 21:13-0500 Body height 172.72 cm [facility] Work Phone: 09-16-2022 21:13-0500 Body mass index (BMI) [Ratio] 24.6 kg/m2 [facility] Work Phone: 09-16-2022 21:13-0500 Body temperature 98.2 [degF] [facility] Work Phone: 09-16-2022 21:13-0500 Body weight 73.48 kg [facility] Work Phone: 09-16-2022 21:13-0500 Diastolic blood pressure 73 mm[Hg] [facility] Work Phone: 09-16-2022 21:13-0500 Heart rate 119 /min [facility] Work Phone: 09-16-2022 21:13-0500 Respiratory rate 16 /min [facility] Work Phone: 09-16-2022 21:13-0500 SaO2% (BldA) [Mass fraction] 100 % [facility] Work Phone: 09-16-2022 21:13-0500 Systolic blood pressure 124 mm[Hg] [facility] Work Phone: 01-02-2022 12:13-0400 Body weight 79.83 kg Roberta Guthrie MD Work Phone: [facility] 12-06-2020 11:00-0400 Body Temperature 97.3 [degF] Inder[facility]ap [facility] Work Phone: 12-06-2020 11:00-0400 BP Diastolic 63 mm[Hg] [facility] Work Phone: 12-06-2020 11:00-0400 BP Systolic 116 mm[Hg] [facility]der[facility] Work Phone: 12-06-2020 11:00-0400 Pulse (Heart Rate) 56 /min [facility] Work Phone: 12-06-2020 11:00-0400 Pulse Oximetry 97 % [facility] Work Phone: 12-06-2020 05:17-0400 Respiratory Rate 18 /min [facility] Work Phone: Encounters Encounter Date Encounter Type Care Provider Facility Start: 03-01-2025 End: 03-01-2025 Patient encounter procedure Tomás Lipscomb [facility] Work Phone: Start: 03-01-2025 End: 03-01-2025 ambulatory Petty Lopezr WIND UP OPERATOR-C Work Phone: [facility] Work Phone: Start: 02-23-2025 End: 02-23-2025 Patient encounter procedure Tomás [place] [facility] Work Phone: Start: 02-23-2025 End: 02-23-2025 ambulatory Petty Vasquez WIND UP OPERATOR-C Work Phone: [facility] Work Phone: Start: 02-09-2025 End: 02-09-2025 ambulatory HEATHER NICOLA [facility] Start: 01-12-2025 End: 01-12-2025 ambulatory MELQUIADES ELLIE QUINTANILLA [facility] Start: 12-23-2024 End: 12-24-2024 Telephone encounter Nella Hood MD Work Phone: OB/Gynecology Comment on above: Results Start: 12-17-2024 End: 12-17-2024 Admission to same day surgery center Dr Nella Ward MD -[facility] Start: 12-17-2024 End: 12-17-2024 ambulatory WIND UP OPERATOR. Petty Lopezr WIND UP OPERATOR-C Work Phone: [facility] Work Phone: Start: 12-16-2024 End: 12-16-2024 ambulatory NELLA HOOD Facility:[facility] Start: 12-16-2024 End: 12-16-2024 Patient encounter procedure Nella Hood MD Work Phone: OB/Gynecology Comment on above: Abnormal uterine ble eding (AUB) (Primary Dx); Endometrial polyp; Pre-op exam Start: 12-16-2024 End: 12-16-2024 Preprocedural examination done Nella Hood MD Work Phone: [facility] Start: 11-17-2024 End: 12-04-2024 E-mail encounter from caregiver Petty Rubalcava APRN.IRA Work Phone: OB/Gynecology Start: 11-17-2024 End: 12-04-2024 Follow-up encounter Petty Rubalcava ELOISA Work Phone: OB/Gynecology Comment on above: Follow up Start: 11-04-2024 End: 11-04-2024 ambulatory Petty Rubalcava ELOISA Work Phone: OB/Gynecology Comment on above: Endometrial polyp (P rimary Dx); Arcuate uterus; Abnormal uterine bleeding (AUB); Chlamydial infection Start: 11-04-2024 End: 11-04-2024 Telemedicine consultation with patient Petty Rubalcava APRN.IRA Work Phone: OB/Gynecology Start: 11-02-2024 End: 01-02-2025 Follow-up encounter Petty Rubalcava ELOISA Work Phone: OB/Gynecology Start: 10-30-2024 End: 11-02-2024 Telephone encounter Petty Rubalcava CNM Work Phone: OB/Gynecology Comment on above: Results Start: 10-29-2024 End: 10-29-2024 Patient encounter procedure [employer] [facility] [employer] OB/Gynecology Start: 10-29-2024 End: 10-29-2024 ambulatory Feather Duster [facility] [employer] Work Phone: OB/Gynecology Comment on above: Arrived Start: 10-27-2024 End: 10-27-2024 Telephone encounter Yordan Smalls APRN.FINAL TOUCH UP PAINTER Work Phone: [facility] Comment on above: Results Start: 10-26-2024 End: 10-26-2024 ambulatory MELQUIADES QUINTANILLA Facility:[facility] Start: 10-26-2024 End: 10-26-2024 Patient encounter procedure Yordan Smalls APRN.FINAL TOUCH UP PAINTER Work Phone: [facility] Comment on above: Urinary frequency (P rimary Dx); Unprotected sex Start: 10-26-2024 End: 10-26-2024 ambulatory PETTY RUBALCAVA Facility:[facility] Start: 10-26-2024 End: 10-26-2024 ambulatory [facility] Start: 10-26-2024 End: 10-26-2024 Patient encounter procedure Petty Khadar AMIN Work Phone: OB/Gynecology Comment on above: Encounter for gyneco logical examination (general) (routine) with abnormal findings (Primary Dx); Screening for cervical cancer; Encounter for screening for human papillomavirus (HPV); Screening for STDs (sexually transmitted diseases); Dysuria; Abnormal uterine bleeding (AUB); Smoker; HSV-2 seropositive Start: 10-26-2024 End: 10-26-2024 Patient encounter status Petty Khadar AMIN Work Phone: [facility] Start: 08-07-2024 End: 08-07-2024 ambulatory LYNN SMALLS Facility:[facility] Start: 08-07-2024 End: 08-07-2024 Patient encounter procedure Lynn Smalls MD Work Phone: OB/Gynecology Comment on above: Fibrocystic breast c hanges of both breasts (Primary Dx) Start: 07-02-2024 End: 07-02-2024 ambulatory [facility] Facility[facility] Start: 04-06-2024 End: 04-06-2024 Emergency department patient visit [facility] Facility[facility] Start: 12-24-2023 Telephone encounter Willow Faustin APRN.FINAL TOUCH UP PAINTER Work Phone: [facility] Comment on above: Results Start: 12-23-2023 End: 12-23-2023 Patient encounter procedure Petty Uriostegui APRN.FINAL TOUCH UP PAINTER Work Phone: [facility] Comment on above: Encounter for sexual ly transmitted disease counseling (Primary Dx); Dysuria; Vaginal discharge Start: 11-11-2023 Telephone encounter Aliya Mcdaniels MD Work Phone: [facility] Comment on above: Appointment Start: 11-03-2023 End: 11-03-2023 Patient encounter procedure Ricardo Campuzano APRN.FINAL TOUCH UP PAINTER Work Phone: [facility] Comment on above: Lower resp. tract in fection (Primary Dx) Start: 08-21-2023 End: 08-21-2023 Office outpatient visit 25 minutes Leif Sahu APRN.FINAL TOUCH UP PAINTER Work Phone: [facility] Comment on above: Lower respiratory tr act infection (Primary Dx) Start: 07-28-2023 End: 07-28-2023 Emergency department patient visit No Primary Care Physician [facility] Work Phone: Start: 07-16-2023 End: 07-16-2023 Subsequent hospital visit by physician Kelsy [facility] Work Phone: Radiology Comment on above: Hemoptysis [R04.2] Start: 07-16-2023 End: 07-16-2023 Patient encounter procedure Liza Friedman PA-C Work Phone: [facility] Comment on above: Viral illness (Prima ry Dx); Hemoptysis Start: 07-11-2023 Telephone encounter Yordan Smalls APRN.FINAL TOUCH UP PAINTER Work Phone: [facility] Comment on above: Results Start: 06-13-2023 Telephone encounter Carmen Parker Work Phone: Infectious Disease Comment on above: Education Of Patient /family (HIV PrEP outreach) Start: 06-12-2023 End: 06-12-2023 Emergency department patient visit [facility] Start: 05-23-2023 Telephone encounter Willow Faustin APRN.FINAL TOUCH UP PAINTER Work Phone: [facility] Comment on above: Results Start: 05-16-2023 End: 05-16-2023 Patient encounter procedure No Primary Care Physician [facility] Work Phone: Start: 04-26-2023 Telephone encounter Aliya Mcdaniels MD Work Phone: [facility] Comment on above: Appointment (Missed Appointment.) Start: 04-24-2023 Telephone encounter Elizabeth BRANCH Work Phone: [facility] Comment on above: Results Start: 04-23-2023 End: 04-23-2023 Patient encounter procedure Elizabeth BRANCH Work Phone: [facility] Comment on above: Vaginal discharge (P rimary Dx) Start: 04-23-2023 Registered Recurring No Primar y Care Physician [employer]-Employee Health Start: 03-03-2023 End: 03-03-2023 Emergency department patient visit [facility] Work Phone: Start: 02-22-2023 Telephone encounter Willow Burton connieAram JANI Work Phone: [facility] Comment on above: Results script not at pharma cy Start: 02-21-2023 End: 02-21-2023 Patient encounter procedure Elizabeth BRANCH Work Phone: [facility] Comment on above: Burning with urinati on (Primary Dx); Screening for STD (sexually transmitted disease); Vaginal discharge Start: 02-01-2023 ambulatory Aliya Mcdaniels MD Work Phone: Endovascular Center Comment on above: bleomycin side effec ts Pruritus (Primary Dx ) Start: 01-03-2023 End: 01-03-2023 ambulatory ALIYA MCDANIELS Facility:[facility] Start: 01-03-2023 Encounter for other preprocedural examination ALIYA [facility] Start: 01-03-2023 End: 01-03-2023 Admission to [place] [id number] Work Phone: [facility] Start: 01-03-2023 End: 01-03-2023 ambulatory [place] [id number] Work Phone: Pre Anesthesia Comment on above: Pre-op evaluation (P rimary Dx); AVM (arteriovenous malformation); Mild major depression (HCC); Smoker; Frequent UTI; History of scoliosis Start: 01-03-2023 End: 01-03-2023 Preprocedural examination done [place] [id number] Work Phone: Pre Anesthesia Start: 12-19-2022 Admission to same da y surgery center Aliya Mcdaniels MD Work Phone: Endovascular Center Comment on above: Schedule Surgery Start: 12-19-2022 ambulatory Aliya Mcdaniels MD Work Phone: [facility] Start: 11-28-2022 End: 11-28-2022 ambulatory Ricco Mullins MD Work Phone: Otolaryngology Comment on above: Oropharyngeal lesion (Primary Dx) Start: 11-28-2022 End: 11-28-2022 Telemedicine consultation with patient Ricco Mullins MD Work Phone: [facility] Start: 11-16-2022 ambulatory Ricco sawyer MD Work Phone: Otolaryngology Comment on above: Start: 11-08-2022 Telephone encounter Shazia keith MD Work Phone: OB/Gynecology Comment on above: Positive home UPT Start: 09-16-2022 End: 09-16-2022 [facility] Start: 02-16-2022 Telephone encounter Nella Hood MD Work Phone: OB/Gynecology Comment on above: Vaginal Problem Start: 01-07-2022 Refill Roberta gonsales MD Work Phone: OB/Gynecology Comment on above: Refill Request Start: 01-03-2022 Telephone encounter Roberta Guthrie MD Work Phone: OB/Gynecology Comment on above: Results Start: 01-02-2022 E-mail encounter fro m caregiver [facility] Provider [facility] Start: 01-02-2022 End: 01-02-2022 Patient encounter procedure Roberta Guthrie MD Work Phone: OB/Gynecology Comment on above: Vaginal irritation ( Primary Dx); Irritant contact dermatitis, unspecified trigger Appointment 01-09-22 at 9:00 am Start: 10-04-2021 ambulatory DOMENICA KRISHNAN Facility: [facility] Start: 09-28-2021 ambulatory DIPAK ROSE [facility] Start: 09-19-2021 ambulatory DIPAK ROSE [facility] Start: 01-10-2021 End: 01-10-2021 Subsequent hospital visit by physician Kelsy [facility] Leeanne Work Phone: Radiology Comment on above: Cough [R05] Start: 12-06-2020 End: 12-06-2020 Evaluation and management of inpatient Jairoerdorysap Ramo Ortega Work Phone: [facility] Start: 05-07-2018 End: 05-07-2018 Patient encounter ROSEANN TOBIN Cj [facility] Start: 02-26-2018 End: 02-26-2018 Ambulatory CARLOS ALBERTO Rivera CHRISAmos [facility] Start: 02-26-2018 End: 02-28-2018 Evaluation and management of inpatient [facility] Start: 02-19-2018 End: 02-19-2018 Ambulatory [facility] Start: 06-03-2017 End: 06-03-2017 Ambulatory [facility] Start: 03-21-2017 End: 03-21-2017 Ambulatory [facility] Start: 03-12-2017 End: 03-12-2017 Ambulatory EUNICE CONNOR [facility] Procedures Date Procedure Procedure Detail Performing Clinician Start: 12-17-2024 Hysteroscopy WIND UP OPERATOR. Michael Vasquez WIND UP OPERATOR-C Work Phone: Start: 12-17-2024 Estimated creatinine clearance Petty Vasquez WIND UP OPERATOR-C Work Phone: Start: 10-29-2024 Us pelvic nonobstetr ic real-time image complete Petty Rubalcava INTELLECTUAL PROPERTY LAWYER.CNM Work Phone: Start: 10-26-2024 Urnls dip stick/tabl et rgnt auto w/o microscopy Yordan Smalls INTELLECTUAL PROPERTY LAWYER.FINAL TOUCH UP PAINTER Work Phone: Start: 12-23-2023 Urnls dip stick/tabl et rgnt auto w/o microscopy Petty Uriostegui INTELLECTUAL PROPERTY LAWYER.FINAL TOUCH UP PAINTER Work Phone: Start: 07-16-2023 Radiologic exam ches t 2 views Liza R Athy PA-C Work Phone: Start: 07-16-2023 STREP A MOLECULAR (POC) Liza Friedman PA-C Work Phone: Start: 06-12-2023 CT angiography of ch est with contrast No Primary Care Physician Start: 06-12-2023 Plain chest X-ray No Pr imary Care Physician Start: 04-23-2023 BACTERIAL VAGINOSIS NAAT Elizabeth BRANCH Work Phone: Start: 04-23-2023 Iadna trichomonas vaginalis amplified probe tech Elizabeth BRANCH Work Phone: Start: 03-03-2023 Plain chest X-ray Start: 03-03-2023 Plain x-ray of humerus Start: 03-03-2023 CT cervical spine wi thout contrast Start: 03-03-2023 CT of head without contrast Start: 03-03-2023 CT of soft tissues o f neck with contrast Start: 02-21-2023 End: 02-21-2023 Urnls dip stick/tablet rgnt auto w/o microscopy Willow Jacinto APRN.ELLIE Work Phone: Start: 01-10-2021 Radiologic exam ches t 2 views Arnaldo Rojas MD Work Phone: Start: 12-06-2020 Procalcitonin (pct) Ind erpartap S Phangureh Work Phone: Start: 12-06-2020 Assay of thyroid stimulating hormone tsh [facility] Work Phone: Start: 12-06-2020 Basic metabolic pane l calcium total [facility] Work Phone: Start: 12-06-2020 Blood count complete auto&auto difrntl wbc [facility] S [facility] Work Phone: Start: 12-06-2020 C-reactive protein Inde rpartap S Phang[facility] Work Phone: Start: 12-06-2020 Prothrombin time Inderp artap S [facility] Work Phone: Start: 12-06-2020 Sedimentation rate r bc automated [facility] Work Phone: Start: 12-06-2020 Ecg routine ecg w/le ast 12 lds w/i&r [facility]der[facility] S [facility] Work Phone: Start: 07-08-2019 Antibody screen Comment on above: Performed By: #### T &S #### [place] [address] SARS-CoV-2 & FLU Ant igen (Rapid) Plan of Treatment Date Care Activity Detail Author Start: 06-02-2029 Urine microalbumin profile [facility] Start: 10-26-2027 Screening for malign ant neoplasm of cervix Cervical Cancer Screening [facility] Start: 12-22-2024 GC (Gonorrhea) Scree chloé () GC (Gonorrhea) Screening () [facility] Start: 12-22-2024 Screening for Chlamy jesu trachomatis Chlamydia Screening () [facility] Start: 12-17-2024 Anes hysteroscopy&/hysterosal pingography w/bx ANESTH HYSTEROSCOPE/GRAPH [facility] Start: 12-17-2024 Hysteroscopy bx endometrium&/polypc w/wo d&c HYSTEROSCOPY BIOPSY [facility] Start: 12-17-2024 Ambulation without limitation [facility] Start: 12-17-2024 Medical regimen orde rs management [facility] Start: 12-17-2024 Medication education [facility] Start: 12-17-2024 Patient discharge [facility] Start: 12-17-2024 Procedure discontinued [facility] Start: 12-17-2024 Taking patient vital signs [facility] Start: 12-17-2024 Vital signs measurements [facility] Start: 12-17-2024 [facility] Start: 12-08-2024 End: 12-08-2024 Patient encounter procedure 12/08/2024 8:40 AM EDT Office Visit OB/Gynecology [address] [place] [address] Nella John MD [address] [place] [address] surgery 12/17 OB/Gynecology Comment on above: surgery 12/17 Start: 11-17-2024 End: 11-17-2024 Follow-up encounter 11/17/2024 3:30 PM EST [facility]cology [address] [place] [address] Petty Rubalcava APRN.CN [address] [place] [address] 2 week follow up OB/Gynecology Comment on above: 2 week follow up Start: 11-13-2024 End: 11-13-2024 Patient encounter procedure 11/13/2024 8:00 AM EST Office Visit Urology [address] [place] [address] Catrachita Devlin PA [address] [place] [address] Dysuria [R30.0] Urology Comment on above: Dysuria [R30.0] Start: 11-04-2024 End: 11-04-2024 Follow-up encounter 11/04/2024 3:15 PM EST [facility] [address] [place] [address] Petty Rubalcava APRN.CN [address] [place] [address] 2 week follow up OB/Gynecology Comment on above: 2 week follow up Start: 10-29-2024 End: 10-29-2024 ambulatory 10/29/2024 2:00 PM EST Procedure OB/Gynecology [address] [place] [address] [facility], [facility] [address] [place] [address] Abnormal uterine bleeding (AUB) [N93.9] OB/Gynecology Comment on above: Abnormal uterine ble eding (AUB) [N93.9] Start: 10-26-2024 End: 01-25-2025 DHEA-S BLD [facility] Comment on above: Expected: 10/26/2024 , Expires: 01/25/2025 Start: 10-26-2024 End: 01-25-2025 Hemoglobin A1c in Blood [facility] Comment on above: Expected: 10/26/2024 , Expires: 01/25/2025 Start: 10-26-2024 End: 01-25-2025 Prolactin [Mass/volume] in Serum or Plasma [facility] Comment on above: Expected: 10/26/2024 , Expires: 01/25/2025 Start: 10-26-2024 End: 01-25-2025 TESTOSTERONE, FREE AND TOTAL, BY EQUILIBRIUM ULTRAFILTRATION MASS SPECTROMETRY [facility] Comment on above: Expected: 10/26/2024 , Expires: 01/25/2025 Start: 10-26-2024 End: 01-25-2025 Thyrotropin [Units/volume] in Serum or Plasma [facility] Comment on above: Expected: 10/26/2024 , Expires: 01/25/2025 Start: 10-26-2024 End: 10-26-2025 US Pelvis PELVIC US [facility] Anc Imaging Routine Abnormal uterine bleeding (AUB) Expected: 10/26/2024, Expires: 10/26/2025 [facility] Comment on above: Expected: 10/26/2024 , Expires: 10/26/2025 Start: 06-20-2024 Chlamydia Screening () Chlamydia Screening () [facility] Start: 06-20-2024 GC (Gonorrhea) Scree chloé (18) GC (Gonorrhea) Screening () [facility] Start: 06-20-2024 Screening for Chlamy jesu trachomatis Chlamydia Screening () [facility] Start: 05-24-2024 Covid-19 Vaccine () Covid-19 Vaccine () [facility] Start: 05-24-2024 Covid-19 Vaccine ( season) Covid-19 Vaccine ( season) [facility] Start: 05-24-2024 Influenza vaccination [facility] Start: 05-22-2024 CHLAMYDIA SCREENING (18-24) CHLAMYDIA SCREENING (18-24) [facility] Start: 05-22-2024 GC (GONORRHEA) SCREE CHLOÉ (18-24) GC (GONORRHEA) SCREENING (18-24) [facility] Start: 04-23-2024 CHLAMYDIA SCREENING (18-24) CHLAMYDIA SCREENING (18-24) [facility] Start: 04-23-2024 GC (GONORRHEA) SCREE CHLOÉ (18-24) GC (GONORRHEA) SCREENING (18-24) [facility] Start: 02-22-2024 CHLAMYDIA SCREENING (18-24) CHLAMYDIA SCREENING (18-24) [facility] Start: 02-22-2024 GC (GONORRHEA) SCREE CHLOÉ (18-24) GC (GONORRHEA) SCREENING (18-24) [facility] Start: 07-02-2023 CHLAMYDIA SCREENING (18-24) CHLAMYDIA SCREENING (18-24) [facility] Start: 07-02-2023 GC (GONORRHEA) SCREE CHLOÉ (18-24) GC (GONORRHEA) SCREENING (18-24) [facility] Start: 06-13-2023 End: 08-13-2023 HIV 1+2 Ab [Presence] in Serum or Plasma by Immunoassay HIV 1 2 COMBO(AG/AB),WITH REFLEX TO DIFFERENTIATION Lab Routine Screening for HIV (human immunodeficiency virus) Expected: 06/13/2023, Expires: 08/13/2023 [facility] Work Phone: Comment on above: Expected: 06/13/2023 , Expires: 08/13/2023 Start: 06-12-2023 CT angiography of ch est with contrast CTA Chest W/WO Contrast [facility] Start: 06-12-2023 CTA Chest vessels WO and W contrast IV [facility] Start: 06-12-2023 Blood chemistry [facility] Start: 06-12-2023 End: 06-12-2023 [facility] Start: 05-24-2023 Covid-19 Vaccine ( season) Covid-19 Vaccine ( season) [facility] Start: 05-24-2023 Influenza vaccination [facility] Start: 01-02-2023 CHLAMYDIA SCREENING () CHLAMYDIA SCREENING () [facility] Start: 01-02-2023 GC (GONORRHEA) SCREE CHLOÉ (18) GC (GONORRHEA) SCREENING () [facility] Start: 12-20-2022 End: 02-19-2023 Basic metabolic 2000 panel - Serum or Plasma BASIC METABOLIC PNL Lab Routine AVM (arteriovenous malformation) Expected: 12/20/2022, Expires: 02/19/2023 [facility] Work Phone: Comment on above: Expected: 12/20/2022 , Expires: 02/19/2023 Start: 12-20-2022 End: 02-19-2023 CBC panel - Blood by Automated count CBC Lab Routine AVM (arteriovenous malformation) Expected: 12/20/2022, Expires: 02/19/2023 [facility] Work Phone: Comment on above: Expected: 12/20/2022 , Expires: 02/19/2023 Start: 12-20-2022 End: 02-19-2023 TYPE AND SCREEN,30 DAY TYPE AND SCREEN,30 DAY Blood Bank Routine AVM (arteriovenous malformation) Expected: 12/20/2022, Expires: 02/19/2023 [facility] Work Phone: Comment on above: Expected: 12/20/2022 , Expires: 02/19/2023 Start: 12-19-2022 End: 02-18-2023 CONFIRM BLOOD TYPE CONFIRM BLOOD TYPE Blood Bank Routine AVM (arteriovenous malformation) Expected: 12/19/2022, Expires: 02/18/2023 [facility] Work Phone: Comment on above: Expected: 12/19/2022 , Expires: 02/18/2023 Start: 11-08-2022 End: 01-08-2023 Choriogonadotropin.beta subunit [Units/volume] in Serum or Plasma HCG QUANTITATIVE Lab Routine Positive urine test Expected: 11/08/2022, Expires: 01/08/2023 [facility] Work Phone: Comment on above: Expected: 11/08/2022 , Expires: 01/08/2023 Start: 07-06-2022 CHLAMYDIA SCREENING (18-24) CHLAMYDIA SCREENING (18-24) [facility] Start: 07-06-2022 GC (GONORRHEA) SCREE CHLOÉ (18-24) GC (GONORRHEA) SCREENING (18-24) [facility] Start: 05-24-2022 Influenza vaccination [facility] Start: 01-02-2022 End: 03-04-2022 Trichomonas vaginalis Ag [Presence] in Genital specimen by Immunoassay TRICHOMONAS PREP/ANTIGEN Microbiology Routine Vaginal irritation Expected: 01/02/2022, Expires: 03/04/2022 [facility] Work Phone: Comment on above: Expected: 01/02/2022 , Expires: 03/04/2022 Start: 01-30-2021 PAP TESTING PAP TESTING [facility] Start: 01-30-2021 Screening for malign ant neoplasm of cervix [facility] Start: 05-24-2020 Influenza vaccination Flu vaccine (# 1) [facility] Work Phone: Start: 01-30-2019 Pneumococcal vaccination Pneum ococcal Vaccine (1 of 2 - PCV) [facility] Start: 01-30-2019 SHINGRIX VACCINE (1 of 2) SHINGRIX VACCINE (1 of 2) [facility] Start: 01-30-2018 Anxiety Screening Anxiety Screening [facility] Start: 2016 Meningococcal B Vacc ine: Consider Based On Risk (1 of 2 - Patient Seeks Protection) Meningococcal B Vaccine: Consider Based On Risk (1 of 2 - Patient Seeks Protection) [facility] Start: 2016 MENINGOCOCCAL B: Consider based on risk (1 of 2 - Patient Seeks Protection) MENINGOCOCCAL B: Consider based on risk (1 of 2 - Patient Seeks Protection) [facility] Start: 09-29-2014 HPV VACCINE (2 - 2-d ose series) HPV VACCINE (2 - 2-dose series) [facility] Start: 01-30-2014 PEDS TO ADULT TRANSI TION ANNUAL ASSESSMENT PEDS TO ADULT TRANSITION ANNUAL ASSESSMENT [facility] Start: 2012 Adult depression screening assessment DEPRESSION SCREENING [facility] Start: 2012 PEDS TO ADULT TRANSI TION INITIAL DISCUSSION PEDS TO ADULT TRANSITION INITIAL DISCUSSION [facility] Start: 01-30-2010 MENINGOCOCCAL B: Consider based on risk (1 of 2 - Risk Bexsero 2-dose series) MENINGOCOCCAL B: Consider based on risk (1 of 2 - Risk Bexsero 2-dose series) [facility] Start: 01-30-2006 PNEUMOCOCCAL (1 - PCV) PNEUMOCOCCAL (1 - PCV) [facility] Start: 01-30-2006 Pneumococcal vaccination [facility] Start: 01-30-2005 COVID-19 VACCINE (#1) COVID-19 VACCI NE (#1) [facility] Start: 01-30-2005 COVID-19 VACCINE (1) COVID-19 VACCIN E (1) [facility] Start: 2000 COVID-19 VACCINE (#1) COVID-19 VACCI NE (#1) [facility] Bacteria identified in Urine by Culture URINE CULTURE Microbiology Routine Burning with urination 02/21/2023 3:47 PM EDT [facility] Work Phone: Bacteria identified in Urine by Culture URINE CULTURE Microbiology Routine Dysuria 12/23/2023 6:20 PM EDT [facility] Work Phone: Bacteria identified in Urine by Culture BACTERIAL CULTURE, URINE Microbiology Routine Dysuria Ordered: 10/26/2024 [facility] Work Phone: Comment on above: Ordered: 10/26/2024 Bacteria identified in Urine by Culture BACTERIAL CULTURE, URINE Microbiology Routine Urinary frequency Ordered: 10/26/2024 [facility] Work Phone: Comment on above: Ordered: 10/26/2024 BACTERIAL VAGINOSIS AMPLIFICATION BACTERIAL VAGINOSIS AMPLIFICATION Lab Routine Screening for STD (sexually transmitted disease) Vaginal discharge 02/21/2023 3:46 PM EDT [facility] Work Phone: BACTERIAL VAGINOSIS NAAT BACTERI AL VAGINOSIS NAAT Lab Routine Dysuria Vaginal discharge Encounter for sexually transmitted disease counseling 12/23/2023 6:20 PM EDT [facility] Work Phone: BACTERIAL VAGINOSIS NAAT BACTERI AL VAGINOSIS NAAT Lab Routine Screening for STDs (sexually transmitted diseases) 10/26/2024 9:22 AM [facility] Basic metabolic 2000 panel Basic Metabolic Panel Lab Routine Daily until discontinued starting 12/06/2020, 1 completed [employer] Work Phone: Comment on above: Daily until disconti nued starting 12/06/2020, 1 completed RANCHO / TRICHOMONA S AMPLIFICATION RANCHO / TRICHOMONAS AMPLIFICATION Microbiology Routine Screening for STD (sexually transmitted disease) Vaginal discharge 02/21/2023 3:46 PM EDT [facility] Work Phone: RANCHO/TRICHOMONAS NAAT RANCHO /TRICHOMONAS NAAT Lab Routine Dysuria Vaginal discharge Encounter for sexually transmitted disease counseling [facility]/23[facility]23 6[facility]: RANCHO/TRICHOMONAS NAAT RANCHO /TRICHOMONAS NAAT Lab Routine Screening for STDs (sexually transmitted diseases) 10/26/2024 9:22 AM [facility] CBC Auto Differential CBC Auto D ifferential Lab Routine Daily until discontinued starting 12/06/2020, 1 completed [employer] Work Phone: Comment on above: Daily until disconti nued starting 12/06/2020, 1 completed Chlamydia trachomatis+Neisseria gonorrhoeae DNA [Presence] in Unspecified specimen by SOL with probe detection GC/CHLAMYDIA DNA DET Lab Routine Vaginal irritation 01/02/2022 1:17 PM [facility] Work Phone: Chlamydia trachomatis+Neisseria gonorrhoeae DNA [Presence] in Unspecified specimen by SOL with probe detection GC/CHLAMYDIA DNA DET Lab Routine Screening for STD (sexually transmitted disease) Vaginal discharge 02/21/2023 3:44 PM [facility] Work Phone: Chlamydia trachomatis+Neisseria gonorrhoeae DNA [Presence] in Unspecified specimen by SOL with probe detection GONORRHEA/CHLAMYDIA NAAT Lab Routine Vaginal discharge 04/23/2023 3:05 PM [facility] Work Phone: Chlamydia trachomatis+Neisseria gonorrhoeae DNA [Presence] in Unspecified specimen by SOL with probe detection GONORRHEA/CHLAMYDIA NAAT Lab Routine Dysuria Vaginal discharge Encounter for sexually transmitted disease counseling 12/23/2023 6:20 PM EDT [facility] Work Phone: Chlamydia trachomatis+Neisseria gonorrhoeae DNA [Presence] in Unspecified specimen by SOL with probe detection GONORRHEA/CHLAMYDIA NAAT Lab Routine Unprotected sex Ordered: 10/26/2024 [facility] Comment on above: Ordered: 10/26/2024 COVID & INFLUENZA A/ B & RSV NAAT, ROUTINE COVID & INFLUENZA A/B & RSV NAAT, ROUTINE Microbiology Routine Viral illness 07/16/2023 7:49 PM EDT [facility] Work Phone: IR CEREBRAL EMBO EXTRACRANIAL IR CEREBRAL EMBO EXTRACRANIAL Radiology Routine AVM (arteriovenous malformation) Ordered: 12/19/2022 [facility] Work Phone: Comment on above: Ordered: 12/19/2022 Oxygen therapy [[facility] Data Set] Initiate Oxygen Therapy Protocol Respiratory Care Routine Daily until discontinued starting 12/06/2020 [facility] Work Phone: Comment on above: Daily until disconti nued starting 12/06/2020 PAP TEST PAP TEST Lab Rodrigue curiel Encounter for gynecological examination (general) (routine) with abnormal findings Screening for cervical cancer Encounter for screening for human papillomavirus (HPV) 10/26/2024 9:22 AM EST [facility] Patient Education [facility] Work Phone: Patient referral [facility] Work Phone: REFER FOR ADMIT INTERVIEW REFER FOR ADMIT INTERVIEW Procedures Routine AVM (arteriovenous malformation) Ordered: 12/19/2022 [facility] Work Phone: Comment on above: Ordered: 12/19/2022 ROUTINE FLU A/B + RSV ROUTINE FL U A/B + RSV Lab Routine Viral illness 07/16/2023 7:49 PM EDT [facility] Work Phone: SARS-CoV-2 (COVID-19 ) RNA [Presence] in Respiratory specimen by SOL with probe detection COVID NAAT, UPPER RESPIRATORY, ROUTINE Microbiology Routine Viral illness 07/16/2023 7:49 PM EDT [facility] Work Phone: Streptococcus pyogen es antigen assay Group A Streptococcus Rapid Screen [facility] Work Phone: Urine test [facility] Urine test visual color cmprsn meths HCG QUAL UR B/O Lab Routine AVM (arteriovenous malformation) Ordered: 12/19/2022 [facility] Work Phone: Comment on above: Ordered: [facility]19[facility] Immunizations Immunization Date Immunization Notes Care Provider Fa cility 06-02-2019 influenza, injectabl e, quadrivalent, contains preservative Roberta Guthrie MD Work Phone: [facility] 06-02-2019 tetanus toxoid, redu mary diphtheria toxoid, and acellular pertussis vaccine, adsorbed Roberta Guthrie MD Work Phone: [facility] 06-02-2019 influenza virus vacc ine, unspecified formulation Carmen Ortega [facility] Work Phone: [facility] 03-29-2014 human papilloma viru s vaccine, quadrivalent Roberta Guthrie MD Work Phone: [facility] 03-29-2014 varicella virus vaccine Teresita Guthrie MD Work Phone: [facility] 05-28-2012 meningococcal polysaccharide (groups A, C, Y and W-135) diphtheria toxoid conjugate vaccine (MCV4P) Roberta Guthrie MD Work Phone: [facility] Work Phone: 05-28-2012 Meningococcal, MCV4, unspecified conjugate formulation(groups A, C, Y and W-135) Roberta Guthrie MD Work Phone: [facility] Work Phone: 05-28-2012 tetanus toxoid, redu mary diphtheria toxoid, and acellular pertussis vaccine, adsorbed Roberta Guthrie MD Work Phone: [facility] Work Phone: 10-19-2004 diphtheria, tetanus toxoids and acellular pertussis vaccine Roberta Guthrie MD Work Phone: [facility] Work Phone: 10-19-2004 measles, mumps and rubella virus vaccine Roberta Guthrie MD Work Phone: [facility] Work Phone: 10-19-2004 poliovirus vaccine, inactivated Roberta Guthrie MD Work Phone: [facility] Work Phone: 10-10-2002 pneumococcal conjuga te vaccine, 7 valent Roberta Guthrie MD Work Phone: [facility] Work Phone: 10-10-2002 pneumococcal Conjuga te, unspecified formulation Roberta Guthrie MD Work Phone: [facility] Work Phone: 11-20-2001 diphtheria, tetanus toxoids and acellular pertussis vaccine Roberta Guthrie MD Work Phone: [facility] Work Phone: 11-20-2001 haemophilus influenz ae type b vaccine, HbOC conjugate Roberta Guthrie MD Work Phone: [facility] Work Phone: 11-20-2001 haemophilus influenz ae type b vaccine, PRP-T conjugate Roberta Guthrie MD Work Phone: [facility] Work Phone: 11-20-2001 hepatitis B vaccine, pediatric or pediatric/adolescent dosage Roberta Guthrie MD Work Phone: [facility] Work Phone: 06-20-2001 measles, mumps and rubella virus vaccine Roberta Guthrie MD Work Phone: [facility] Work Phone: 06-20-2001 pneumococcal conjuga te vaccine, 7 valent Roberta Guthrie MD Work Phone: [facility] Work Phone: 06-20-2001 pneumococcal Conjuga te, unspecified formulation Roberta Guthrie MD Work Phone: [facility] Work Phone: 06-20-2001 varicella virus vaccine Teresita Guthrie MD Work Phone: [facility] Work Phone: 2000 diphtheria, tetanus toxoids and acellular pertussis vaccine Roberta Guthrie MD Work Phone: [facility] Work Phone: 2000 haemophilus influenz ae type b vaccine, HbOC conjugate Roberta Guthrie MD Work Phone: [facility] Work Phone: 2000 haemophilus influenz ae type b vaccine, PRP-T conjugate Roberta Guthrie MD Work Phone: [facility] Work Phone: 2000 hepatitis B vaccine, pediatric or pediatric/adolescent dosage Roberta Guthrie MD Work Phone: [facility] Work Phone: 2000 poliovirus vaccine, inactivated Roberta Guthrie MD Work Phone: [facility] Work Phone: 2000 diphtheria, tetanus toxoids and acellular pertussis vaccine Roberta Guthrie MD Work Phone: [facility] Work Phone: 2000 haemophilus influenz ae type b conjugate and Hepatitis B vaccine Roberta Guthrie MD Work Phone: [facility] Work Phone: 2000 haemophilus influenz ae type b vaccine, HbOC conjugate Roberta Guthrie MD Work Phone: [facility] Work Phone: 2000 haemophilus influenz ae type b vaccine, PRP-T conjugate Roberta Guthrie MD Work Phone: [facility] Work Phone: 2000 hepatitis B vaccine, pediatric or pediatric/adolescent dosage Roberta Guthrie MD Work Phone: [facility] Work Phone: 2000 poliovirus vaccine, inactivated Roberta Guthrie MD Work Phone: [facility] Work Phone: 2000 diphtheria, tetanus toxoids and acellular pertussis vaccine Roberta Guthrie MD Work Phone: [facility] Work Phone: 2000 haemophilus influenz ae type b conjugate and Hepatitis B vaccine Roberta Guthrie MD Work Phone: [facility] Work Phone: 2000 haemophilus influenz ae type b vaccine, HbOC conjugate Roberta Guthrie MD Work Phone: [facility] Work Phone: 2000 haemophilus influenz ae type b vaccine, PRP-T conjugate Roberta Guthrie MD Work Phone: [facility] Work Phone: 2000 hepatitis B vaccine, pediatric or pediatric/adolescent dosage Roberta Guthrie MD Work Phone: [facility] Work Phone: 2000 poliovirus vaccine, inactivated Roberta Guthrie MD Work Phone: [facility] Work Phone: 2000 hepatitis B vaccine, pediatric or pediatric/adolescent dosage Roberta Guthrie MD Work Phone: [facility] Work Phone: Payers Date Payer Category Payer Self-pay [id number] 2022 Medicaid [id number] 2021 [facility] [id number] 2019 Medicaid [facility] MEDICAID [id number] 2019-Present [phone] [address] [place] [address] Medicaid [id number] 2019 Medicaid [id number] 2016 Unknown [id number] 2000 Unknown [id number] 2000 Unknown [id number] 2000 Unknown [id number] 2000 Unknown [id number] 2000 Unknown [id number] 2000 Unknown [id number] Unknown [facility] [id number] Unknown [id number] Unknown [id number] Unknown [id number] Unknown [id number] Unknown [id number] Social History Date Type Detail Facility Tobacco smoking status CTIS Unknown if ever smoked [facility] Work Phone: Start: 2000 Sex Assigned At Not on file [facility] Work Phone: Start: 02-12-2019 End: 04-09-2019 Tobacco smoking status NHIS Occasional tobacco smoker [facility] Work Phone: Start: 02-12-2019 End: 10-26-2024 Tobacco use and exposure Smokeless tobacco non-user [facility] Work Phone: Start: 01-02-2022 End: 10-26-2024 Alcohol intake Current non-drinker of alcohol (finding) [facility] Start: 04-09-2019 End: 10-18-2022 Tobacco Comment 5 cigarettes daily [facility] Start: 12-11-2020 End: 01-02-2022 Exposure to SARS-CoV-2 (event) Not sure [facility] Start: 09-16-2022 End: 07-28-2023 Tobacco smoking status NHIS Unknown if ever smoked [facility] Start: 01-11-2021 None [facility] Start: 01-11-2021 With Family [facility] Start: 01-18-2021 Cigarettes [facility] Start: 2000 Sex Assigned At Female [facility] Start: 01-03-2023 End: 12-17-2024 Tobacco smoking status NHIS Smokes tobacco daily [facility] History of tobacco use Cigarette Smoker [facility] Start: 01-03-2023 End: 11-04-2024 Cigarettes smoked current (pack per day) - Reported 0.3 [facility] Start: 01-04-2023 History SDOH Financial 4 [facility] Start: 01-04-2023 History SDOH Food Worry 1 [facility] Start: 01-04-2023 History SDOH Transport Med 2 [facility] Start: 04-23-2023 End: 11-04-2024 Tobacco use panel [facility] How hard is it for you to pay for the very basics like food, housing, medical care, and heating Not very hard [facility] Adult Depression Screening Assessment 0 [facility] (I/We) worried whether (my/our) food would run out before (I/we) got money to buy more. Never true [facility] In the past 12 months, was there a time when you were not able to pay the mortgage or rent on time? No [facility] Start: 12-17-2024 Sex Female (finding) [facility] NEGATED: Highlighted row [facility] NEGATED: Highlighted row Not [facility] Goals Date Patient Goal Desired Activity /State Functional Status Date Assessment Result Facility 01-05-2023 Are you deaf, or do you have serious difficulty hearing No 01/05/2023 11:35 AM EDT Shazia Fletcher, PATIENCE No [facility] 01-05-2023 Are you blind, or do you have serious difficulty seeing, even when wearing glasses No 01/05/2023 11:35 AM EDShazia Salvador, PATIENCE No [facility] 01-05-2023 Do you have serious difficulty walking or climbing stairs No 01/05/2023 11:35 AM EDT Shazia Fletcher, PATIENCE No [facility] 01-05-2023 Do you have difficul ty dressing or bathing No 01/05/2023 11:35 AM EDT Shazia Fletcher, PATIENCE No [facility] 01-05-2023 Because of a physica l, mental, or emotional condition, do you have difficulty doing errands alone such as visiting a physician's office or shopping No 01/05/2023 11:35 AM EDShazia Salvador, PATIENCE No [facility] Mental Status Date Assessment Result Facility 12-17-2024 Cognitive function Voice/Name [facility] Work Phone: 12-17-2024 Cognitive function Patient Orien tation Person;Place;Time [facility] Work Phone: 06-12-2023 Cognitive function Voice/Name [facility] Work Phone: 01-05-2023 Because of a physica l, mental, or emotional condition, do you have serious difficulty concentrating, remembering, or making decisions No 01/05/2023 11:35 AM EDT Shazia Fletcher, PATIENCE No [facility] 09-16-2022 Cognitive function Level Of Cons ciousness Awake;Alert;Appropriate;Fol lows Commands [facility] Work Phone: Clinical Notes 09-22-2020 to 02-23-2025 Note Date & Type Note Facility 02-23-2025 Evaluation note Diagnosis Onset Date Resolution Yeast infection acute February 23, 2025 6:13am [facility] Work Phone: [phone] Telephone encounter Note* Telephone Encounter - Nella John MD - 12/23/2024 4:13 PM EDT Please notify patient that tissue is benign from D&C. [facility]04-02-2025 Miscellaneous Notes* Telephone Encounter - Nella John MD - 12/23/2024 4:13 PM EDT Please notify patient that tissue is benign from D&C. documented in [facility]25 Discharge summary [facility] Medical Records Department [address] [place] [address] Instructions for Home/Discharge Instructions 12/17/24 1019 MR#: [id number] Acct: [id number] Name: EB HUI EILEEN Rep #:[id number] : 2000 24 From: Nella Hood MD PCP: JEIMY Abrams Status: REG SDC Discharge Instructions Diet Discharge Diet: No restrictions DC O2, CPAP, BIPAP needs Home O2 Discharge instructions: No Dressing / Incision May resume sexual activity in: 1 week Dressing / Incision Call your doctor if you observe: Fever of 101 or Higher, Inability to urinate, Using more than 1 pad per hour and Uncontrolled pain Follow Up Care Please Follow Up With: Nella Ward MD When: 1-2 weeks post OP if you need an appointment please call [phone] Test Results: Test results from this visit will be discussed in further detail at your follow- up appointment, if applicable. Discharge Plan Admission Attending Provider: Nella Ward Primary Care Provider: Petty Vasquez Instructions Print Language: Guamanian Discharge Orders/Prescriptions Prescriptions: No Action alprazolam 0.5 mg tablet 0.5 mg PO PRN Other Ambulatory Orders: ,Urine (Routine) Timeframe: 20241217 Facility: [facility] - Location: Laboratory Ordered By: Dr. Jamey Lilly Referrals / Follow Up: Petty Vasquez NP-C [Primary Care Provider] - Disposition Disposition (needs filled in before D/C Order can be placed): Home, Self Care 12/17/24 1019Nella Ward MD CC: WIND UP OPERATOR-C NP. 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 pre-operative visit. She is scheduled for Hysteroscopy D&C and possible polypectomy, for AUB, endometrial polyp on 11/22/24. Procedure discussed along with risks, benefits and complications. Other alternatives discussed for management. Consent form signed? Yes. PAST MEDICAL HISTORY Diagnosis Date ? Anemia during in third trimester 06/19/2019 ? Endometriosis ? Herpes 09/22/2020 ? Mental disorder depression/anxiety ? Migraine without aura 02/11/2015 ? PONV (postoperative nausea and vomiting) ? Pre-eclampsia in third trimester 07/06/2019 ? Recurrent UTI was to be evaluated by urology ? Scoliosis ? Tension type headache 02/11/2015 ? Uterine polyp PAST SURGICAL HISTORY Procedure Laterality Date ? TONSILLECTOMY & ADENOIDECTOMY <AGE 12 No current outpatient medications on file. No current facility-administered medications for this visit. ALLERGIES: Patient has no known allergies. PERSONAL HISTORY: Social History Tobacco Use ? Smoking status: Every Day Current packs/day: 0.25 Average packs/day: 0.3 packs/day for 4.0 years (1.0 ttl pk-yrs) Types: Cigarettes ? Smokeless tobacco: Never ? Tobacco comments: 5 cigarettes daily Vaping Use ? Vaping status: current everyday user Substance Use Topics ? Alcohol use: No ? Drug use: No FAMILY HISTORY: FAMILY HISTORY Problem Relation Age of Onset ? Diabetes Mother ? Heart Mother ? Hypertension Father ? Heart Father ? No Known Problems Brother ? Heart Maternal Grandmother ? No Known Problems Maternal Grandfather ? Diabetes Paternal Grandmother ? No Known Problems Paternal Grandfather REVIEW OF SYMPTOMS: negative except as noted above PHYSICAL EXAMINATION: VITALS: Last menstrual period 10/08/2024. GENERAL: The patient is well nourished, well hydrated in no acute distress. , The patient is oriented to time, place, and person. NECK: full range of motion LUNGS: Clear to auscultation bilaterally. no wheezes, rhonchi or rales HEART: Regular rate and rhythm, Normal heart sounds, and No murmurs or gallops IMPRESSION: 24yo with AUB and endometrial polyp PLAN: Hysteroscopy, D&C, polypectomy with symphion Pt has been counseled on risks/benefits and alternatives of surgery including but not limited to anesthesia, bleeding, infection, injury to pelvic structures including bowel, bladder, ureters and vessels. Pt wishes to proceed with surgery at this time. I have reviewed and updated past medical and surgical history, medications and allergies Nella Hood MD 12/16/24 1716 <Electronically signed by Nella Ward MD> Cosigner Signature (if applicable): CC: WIND UP OPERATORNatalieC BHUPENDRA. Petty Vasquez; Dr Nella Ward MD~ Signed ADDENDUM by Dr Nella Ward MD on 12/17/24 at 0839 Addendum I have examined the patient and the H&P has been reviewed. There are no clinicalchanges since date of exam. 12/17/24 0839<Electronically signed by Nella Ward MD> Cosigner Signature (if applicable): cc: WIND UP OPERATORMaik Vasquez; Dr Nella Ward MD ~* Signed [facility] Work Phone: 1(121) 705-545403-27-2025 Consult note [facility] Medical Records Department [address] [place] [address] Anesthesia Postop Eval I 12/17/24 1022 MR#: [id number] Acct: [id number] Name: EB HUI Rep #:[id number] : 2000 24 From: Eunice Pereira CRNA PCP: JEIMY Abrams Status: REG SDC Y Race: C Location: [place] [address] Anesthesia: Postop Eval I Current Vital Signs Temperature: 97.7 F Pulse Rate: 59 Blood Pressure: 116/75 Respiratory Rate: 16 Pulse Ox: 99 Oxygen Delivery Method: Room Air Assessment Airway patent: Yes Spontaneous unlabored respirations: Yes Mental status: Awake and Calm nausea: No Vomiting: No Anesthesia Complication: No Fluid Hydration Crystalloid volume administer (ml): 500 Total IV fluid infused: 500 Progress Note Anesthesia document: Postop Eval 1 completed: Yes 12/17/24 1031 NA> Date _ Eunice Pereira CRNA Cosigner Signature: Date CC: ~ Signed [facility]03-27-2025 Procedure note [facility] Medical Records Department [address] [place] [address] Operative Report 12/17/24 1019 MR#: [id number] Acct: [id number] Name: EB HUI Rep #:[id number] : 2000 24 From: Nella Hood MD PCP: JEIMY Abrams Status: [facility] Location: [place] [id number] Operative Report (Standard) Operative Information Date of Procedure: 12/17/24 Pre-Operative Diagnosis: AUB, Endometrial Polyp Post-Operative Diagnosis: same Surgery/Procedure Performed: Hysteroscopy, d&C laborer petroleum refinery: Yes Lactation Specialist: Jono Matamoros MS3 Tasks completed by sales assistant displays: Retracting Additional campus administrative assistant?: No Type of Anesthesia: MAC RN Documented Start/Stop Times: Operation Date: 12/17/24 09:35 Case Time Into Pre-Op 12/17/24 08:09 Anesthesia Start 12/17/24 09:57 Into Room 12/17/24 09:57 Procedure Start 12/17/24 10:09 Procedure End 12/17/24 10:18 Procedure Start Time: 10:09 Procedure Stop Time: 10:18 Select all DRAINS/GRAFTS/IMPLANTS that apply: None Estimated Blood Loss: 5cc Specimen collected: Yes Description of specimen(s) removed: endometrial curettings Description of surgery: Informed consent was obtained the patient was taken the operating room she was placed in supine position. She was given anesthesia. [facility] she was preppedand draped in the normal sterile fashion. At this time the weighted speculum was placed in the posterior fornix of vagina. Single-tooth tenaculum was used to gently grasp the anterior lip thecervix. At this time the uterine cavity was sounded to approximately 8 cm- retroflexed. Gentle dilatation was performed once adequate dilatation of the cervix was achieved the hysteroscope using normal salineas a distention medium was placed. Tubal ostia visualized. no polyps noted, some thickened tissue on anterior aspect of uterus. sharp curettage performed. Tissue will be sent topathology for evaluation. Tenaculum removed. Good hemostasis. Instrument, lap count correct x 2. Vaginal Sweep was negative. Surgical Findings: no polyps noted. Complications Complications: No Admit VTE Documentation VTE Present on Admission: Yes VTE Mechan Device Prophylaxis: SCD's VTE Pharm Prophylaxis ordered?: No Reason prophylaxis not ordered: Treatment Not Indicated 12/17/24 1021 Cosigner Signature (if applicable): CC: WIND UP OPERATOR-C NP. Petty Vasquez; Dr Nella Ward MD~ Signed [facility]03-27-2025 History and physical note [facility] Medical Records Department [address] [place] [address] H&P Exam - ADVERTISING SPECIALIST 12/16/24 1716 MR#: [id number] Acct: [id number] Name: EB HUI Rep #:[id number] : 2000 24 From: Nella Hood MD PCP: BHUPENDRA. JEIMY Pinto Status: [facility] Location: [place] [address] History and Physical Date of Admission: 12/17/24 Pre-Op History and Physical HPI: The patient is a 24 year old female presenting for discussion regarding surgical intervention for AUB and Endometrial polyp found on ultrasound. pre-operative visit. She is scheduled for Hysteroscopy D&C and possible polypectomy, for AUB, endometrial polyp on 11/22/24. Procedure discussed along with risks, benefits and complications. Other alternatives discussed for management. Consent form signed? Yes. PAST MEDICAL HISTORY Diagnosis Date ? Anemia during in third trimester 06/19/2019 ? Endometriosis ? Herpes 09/22/2020 ? Mental disorder depression/anxiety ? Migraine without aura 02/11/2015 ? PONV (postoperative nausea and vomiting) ? Pre-eclampsia in third trimester 07/06/2019 ? Recurrent UTI was to be evaluated by urology ? Scoliosis ? Tension type headache 02/11/2015 ? Uterine polyp PAST SURGICAL HISTORY Procedure Laterality Date ? TONSILLECTOMY & ADENOIDECTOMY No current outpatient medications on file. No current facility-administered medications for this visit. ALLERGIES: Patient has no known allergies. PERSONAL HISTORY: Social History Tobacco Use ? Smoking status: Every Day Current packs/day: 0.25 Average packs/day: 0.3 packs/day for 4.0 years (1.0 ttl pk-yrs) Types: Cigarettes ? Smokeless tobacco: Never ? Tobacco comments: 5 cigarettes daily Vaping Use ? Vaping status: current everyday user Substance Use Topics ? Alcohol use: No ? Drug use: No FAMILY HISTORY: FAMILY HISTORY Problem Relation Age of Onset ? Diabetes Mother ? Heart Mother ? Hypertension Father ? Heart Father ? No Known Problems Brother ? Heart Maternal Grandmother ? No Known Problems Maternal Grandfather ? Diabetes Paternal Grandmother ? No Known Problems Paternal Grandfather REVIEW OF SYMPTOMS: negative except as noted above PHYSICAL EXAMINATION: VITALS: Last menstrual period 10/08/2024. GENERAL: The patient is well nourished, well hydrated in no acute distress. , The patient is oriented to time, place, and person. NECK: full range of motion LUNGS: Clear to auscultation bilaterally. no wheezes, rhonchi or rales HEART: Regular rate and rhythm, Normal heart sounds, and No murmurs or gallops IMPRESSION: 24yo with AUB and endometrial polyp PLAN: Hysteroscopy, D&C, polypectomy with symphion Pt has been counseled on risks/benefits and alternatives of surgery including but not limited to anesthesia, bleeding, infection, injury to pelvic structures including bowel, bladder, ureters and vessels. Pt wishes to proceed with surgery at this time. I have reviewed and updated past medical and surgical history, medications and allergies Nella Hood MD 12/16/24 1716 Cosigner Signature (if applicable): CC: WIND UP OPERATORMaik Vasquez; Dr Nella Ward MD~ Signed ADDENDUM by Dr Nella Ward MD on 12/17/24 at 0839 Addendum I have examined the patient and the H&P has been reviewed. There are no clinicalchanges since date of exam. 12/17/24 0839 Cosigner Signature (if applicable): cc: WIND UP OPERATORMaik Vasquez; Dr Nella Ward MD ~* Signed [facility]03-26-2025 History and physical note* Nella John MD - 12/16/2024 1:32 PM EDT Pre-Op History and Physical HPI: The patient is a 24 year old female presenting for discussion regarding surgical intervention for AUB and Endometrial polyp found on ultrasound. pre-operative visit. She is scheduled for Hysteroscopy D&C and possible polypectomy, for AUB, endometrial polyp on 11/22/24. Procedure discussed along with risks, benefits and complications. Other alternatives discussed for management. Consent form signed? Yes. PAST MEDICAL HISTORY Diagnosis Date Anemia during in third trimester 06/19/2019 Endometriosis Herpes 09/22/2020 Mental disorder depression/anxiety Migraine without aura 02/11/2015 PONV (postoperative nausea and vomiting) Pre-eclampsia in third trimester 07/06/2019 Recurrent UTI was to be evaluated by urology Scoliosis Tension type headache 02/11/2015 Uterine polyp PAST SURGICAL HISTORY Procedure Laterality Date TONSILLECTOMY & ADENOIDECTOMY No current outpatient medications on file. No current facility-administered medications for this visit. ALLERGIES: Patient has no known allergies. PERSONAL HISTORY: Social History Tobacco Use Smoking status: Every Day Current packs/day: 0.25 Average packs/day: 0.3 packs/day for 4.0 years (1.0 ttl pk-yrs) Types: Cigarettes Smokeless tobacco: Never Tobacco comments: 5 cigarettes daily Vaping Use Vaping status: current everyday user Substance Use Topics Alcohol use: No Drug use: No FAMILY HISTORY: FAMILY HISTORY Problem Relation Age of Onset Diabetes Mother Heart Mother Hypertension Father Heart Father No Known Problems Brother Heart Maternal Grandmother No Known Problems Maternal Grandfather Diabetes Paternal Grandmother No Known Problems Paternal Grandfather REVIEW OF SYMPTOMS: negative except as noted above PHYSICAL EXAMINATION: VITALS: Last menstrual period 10/08/2024. GENERAL: The patient is well nourished, well hydrated in no acute distress. , The patient is oriented to time, place, and person. NECK: full range of motion LUNGS: Clear to auscultation bilaterally. no wheezes, rhonchi or rales HEART: Regular rate and rhythm, Normal heart sounds, and No murmurs or gallops IMPRESSION: 24yo with AUB and endometrial polyp PLAN: Hysteroscopy, D&C, polypectomy with symphion Pt has been counseled on risks/benefits and alternatives of surgery including but not limited to anesthesia, bleeding, infection, injury to pelvic structures including bowel, bladder, ureters and vessels. Pt wishes to proceed with surgery at this time. I have reviewed and updated past medical and surgical history, medications and allergies Nella Hood MD [facility]03-26-2025 History and physical note* Nella John MD - 12/16/2024 1:32 PM EDT Pre-Op History and Physical HPI: The patient is a 24 year old female presenting for discussion regarding surgical intervention for AUB and Endometrial polyp found on ultrasound. pre-operative visit. She is scheduled for Hysteroscopy D&C and possible polypectomy, for AUB, endometrial polyp on 11/22/24. Procedure discussed along with risks, benefits and complications. Other alternatives discussed for management. Consent form signed? Yes. PAST MEDICAL HISTORY Diagnosis Date Anemia during in third trimester 06/19/2019 Endometriosis Herpes 09/22/2020 Mental disorder depression/anxiety Migraine without aura 02/11/2015 PONV (postoperative nausea and vomiting) Pre-eclampsia in third trimester 07/06/2019 Recurrent UTI was to be evaluated by urology Scoliosis Tension type headache 02/11/2015 Uterine polyp PAST SURGICAL HISTORY Procedure Laterality Date TONSILLECTOMY & ADENOIDECTOMY <AGE 12 No current outpatient medications on file. No current facility-administered medications for this visit. ALLERGIES: Patient has no known allergies. PERSONAL HISTORY: Social History Tobacco Use Smoking status: Every Day Current packs/day: 0.25 Average packs/day: 0.3 packs/day for 4.0 years (1.0 ttl pk-yrs) Types: Cigarettes Smokeless tobacco: Never Tobacco comments: 5 cigarettes daily Vaping Use Vaping status: current everyday user Substance Use Topics Alcohol use: No Drug use: No FAMILY HISTORY: FAMILY HISTORY Problem Relation Age of Onset Diabetes Mother Heart Mother Hypertension Father Heart Father No Known Problems Brother Heart Maternal Grandmother No Known Problems Maternal Grandfather Diabetes Paternal Grandmother No Known Problems Paternal Grandfather REVIEW OF SYMPTOMS: negative except as noted above PHYSICAL EXAMINATION: VITALS: Last menstrual period 10/08/2024. GENERAL: The patient is well nourished, well hydrated in no acute distress. , The patient is oriented to time, place, and person. NECK: full range of motion LUNGS: Clear to auscultation bilaterally. no wheezes, rhonchi or rales HEART: Regular rate and rhythm, Normal heart sounds, and No murmurs or gallops IMPRESSION: 24yo with AUB and endometrial polyp PLAN: Hysteroscopy, D&C, polypectomy with symphion Pt has been counseled on risks/benefits and alternatives of surgery including but not limited to anesthesia, bleeding, infection, injury to pelvic structures including bowel, bladder, ureters and vessels. Pt wishes to proceed with surgery at this time. I have reviewed and updated past medical and surgical history, medications and allergies Nella Hood MD documented in this encounterAv[facility]03-26-2025 NoteHNO ID: [id number] Author: NELLA JOHN MD Service: ? Author Type: Physician Type: Progress Notes Filed: 12/16/2024 17:17 Note Text:[facility]03-26-2025 History of Present illness Narrative* Nella John MD - 12/16/2024 1:26 PM EDT documented in this encounterAvita [facility] System02-26-2025 Telephone encounter Note * Telephone Encounter - Angelina Gloria RN - 11/18/2024 4:16 PM EST Notified surgery aid. Angelina Gloria RN [facility]02-26-2025 Miscellaneous Notes* Telephone Encounter - Angelina Gloria RN - 11/18/2024 4:16 PM EST Notified surgery aid. Angelina Gloria, PATIENCE * Telephone Encounter - Petty Rubalcava APRN.CNM - 11/18/2024 12:54 PM EST No, I can I have a sheet for a provider that is available in about 6-8 wks. Thanks, Petty Rubalcava APRN.CNM documented in this encounterAvita [facility] System02-26-2025 Telephone encounter Note * Telephone Encounter - Petty Rubalcava APRN.CNM - 11/18/2024 12:54 PM EST No, I can I have a sheet for a provider that is available in about 6-8 wks. Petty Ladd APRN.CNM [facility]02-12-2025 Instructions* Patient Instructions* Petty Rubalcava APRN.CNM - 11/04/2024 3:25 PM EST SALINE INFUSION SONOGRAPHY (SIS) is an office procedure used to evaluate the intrauterine cavity orinside lining of the uterus. This is achieved by intrauterine infusion of a saline solution during transvaginal ultrasound (an ultrasound using a vaginal probe). A small, flexible catheter is passed through the cervix (the opening of the uterus) into the uterus so the sterile water can distend the uterine hightower and allow visualization of the uterine cavity. PRIOR TO THE PROCEDURE: You may wish to take an over the counter medication such as Tylenol, Advil, or Motrin. You may exparience a small amount of menstrual like cramping with the procedure, and this will help minimize the discomfort. NOTIFY YOUR PHYSICIAN IF YOU HAVE MITRAL VALVE PROLAPSE, JOINT REPLACEMENT, OR ROUTINELY TAKE ANTIBIOTICS FOR DENTAL PROCEDURES, ANTIBIOTICS MAY BE NECESSARY FOR THIS PROCEDURE WELL. AFTER THE PROCEDURE: A small amount of bleeding, cramping, or watery discharge is expected. You may use tampons or pads. DO NOT leave the tampons in longer than 3 hours at a time. Tylenol, Advil, or Motrin may be used for abdominal cramping or discomfort you may experience. Refrain from douching or intercourse for 48 hours. Showers or tub baths are allowed. However, refrain from hot tubs and swimming for 48 hours. NOTIFY YOUR PHYSICIAN'S OFFICE IF YOU HAVE A TEMPERATURE OF 100 DEGREES OR HIGHER, OR IF YOU EXPERIENCE SEVERE ABDOMINAL PAIN, OR HEAVY BLEEDING. YOUR PHYSICIAN WILL NOTIFY YOU OF YOUR TEST RESULTS If your physician does not perform this test, he/she will provide you with a referral and appointment number for scheduling the procedure documented in this encounterAvita Health System02-12-2025 NoteHNO ID: [id number] Author: PETTY RUBALCAVA APRN.CNM Service: ? Author Type: [employer] Type: Progress Notes Filed: 11/17/2024 14:43 Note Text: DISTANCE HEALTH VISIT This Team Access Model visit is a virtual encounter. It required patient-provider interaction for the medical decision making as documented below. I have communicated my name and active licensure. The patient's identity and physical location were verified at the time of this visit. Either the patient or their legal patient account representative has been informed of the risks and benefits of -- and alternatives to -- treatment through a remote evaluation and consents to proceed with the evaluation remotely. Eb Hui is a 24 year old female seen for follow up AUB bleeding every 20-30 days, 4 days of bleeding and filling a pad every hour for the first 2 days. Denies pain or bleeding at any other time. Seen in Urgent care for UTI and diagnosed with Chlamydia. Partner denies any new partners. HISTORY REVIEWED (electronic chart updated): - medical history - medications - allergies REVIEW OF SYSTEMS: GENERAL: feeling well without fatigue, no recent change in weight PHYSICAL EXAMINATION: VIDEO EXAM: (if done, performed via video enabled technology) GENERAL: alert and appropriate, in no distress, well-hydrated, well nourished, and happy, smiling, interactive Latest Ref Rng 10/26/2024 WBC 3.70 - 11.00 k/uL 5.28 RBC 3.90 - 5.20 m/uL 4.48 Hemoglobin 11.5 - 15.5 g/dL 13.8 Hematocrit 36.0 - 46.0 % 40.4 MCV 80.0 - 100.0 fL 90.2 MCH 26.0 - 34.0 pg 30.8 MCHC 30.5 - 36.0 g/dL 34.2 RDW-CV 11.5 - 15.0 % 12.3 Platelet Count 150 - 400 k/uL 211 MPV 9.0 - 12.7 fL 9.4 Neut% % 54.9 Abs Neut (ANC) 1.45 - 7.50 k/uL 2.90 Lymph% % 35.4 Abs Lymph 1.00 - 4.00 k/uL 1.87 Garrard% % 8.3 Abs Garrard <0.87 k/uL 0.44 Eosin% % 0.8 Abs Eosin <0.46 k/uL 0.04 Baso% % 0.4 Abs Baso <0.11 k/uL <0.03 Immature Gran % % 0.2 IMMATURE GRANS (ABS) <0.10 k/uL <0.03 NRBC /100 WBC 0.0 Absolute nRBC <0.01 k/uL <0.01 DTYPE Auto GLUCOSE UA (POCT) Negative mg/dL Negative BILIRUBIN UA (POCT) Negative Negative KETONE UA (POCT) Negative mg/dL Negative SPECIFIC GRAVITY UA (POCT) 1.005 - 1.030 1.025 HEMOGLOBIN/BLOOD UA (POCT) Negative Negative PH UA (POCT) 4.5 - 8.0 6.0 PROTEIN UA (POCT) Negative mg/dL Negative UROBILINOGEN UA (POCT) Normal E.U./dL 0.2 NITRITE UA (POCT) Negative Negative LEUKOCYTES UA (POCT) Negative Negative COLOR UA (POCT) Yellow CLARITY UA (POCT) Clear Case Report Gynecologic Cytology Report Case: [id number] ? Specimen adequacy: Satisfactory for interpretation. Cytology Interpretation Negative for intraepithelial lesion or malignancy. Clinical History Routine Exam LMP 10/08/2024 Pap Disclaimer The Pap Smear is a screening test for cervical cancer. False negative results occur with all screening tests, emphasizing the need for rescreening at recommended intervals, and clinical correlation. TEST INFORMATION: This specimen has been analyzed by the ThinPrep Imaging System, an automated imaging and review system, which assists the laboratory in evaluating cells on ThinPrep Pap tests. Following automated imaging, selected hood from every slide are reviewed by a chart computer. Performing Lab Technical component, chart computer screening performed at [facility], [address] [place] [address] CLIA# [id number]? Rancho species group RNA Not detected Not detected Rancho glabrata RNA Not detected Not detected Trichomonas vaginalis RNA Not detected Not detected Testosterone, Total, S 10.0 - 55.0 ng/dL 20.9 Testosterone, Free, S 0.10 - 0.85 ng/dL 0.45 Testosterone, % Free, S 0.50 - 2.80 % 2.16 Hemoglobin A1C 4.3 - 5.6 % 4.9 Estimated Average Glucose mg/dL 94 Neisseria gonorrhoeae RNA Not detected Not detected Chlamydia trachomatis RNA Not detected Detected ! Bacterial vaginosis Not detected Not detected TSH 0.270 - 4.200 mIU/L 0.651 Prolactin 4.4 - 33.8 ng/mL 9.6 DHEA-S 148.0 - 407.0 ug/dL 264.1 Culture 10,000 -<50,000 CFU/ml Normal urogenital ziggy Legend: ! Abnormal Indication Abnormal uterine bleeding, recurrent UTI's Impression The contour of the uterus and the endometrial cavity were evaluated with 3-D imaging. Findings are suggestive of arcuate uterus. The uterus is retroflexed and measures 85 mm x 55 mm x 71 mm. The endometrial thickness is 9.9 mm. There is a left lateral posterior wall echogenic area in the endometrial cavity with vascular flow that is suggestive of a polyp that measures 11 mm x 8 mm x 4 mm. The right ovary measures 38 mm x 22 mm x 14 mm. The left ovary measures 28 mm x 24 mm x 15 mm and contains a hemorrhagic corpus luteum cyst. There is trace amount of free fluid visualized. Recommendations Consider hysteroscopic evaluation and management of intracavitary lesion if clinically indicated. Arcuate uterus. ASSESSMENT/PLAN: 1 (more content not included)...[facility]02-12-2025 History of Present illness Narrative* Petty Rubalcava APRN.[facility] - 11/04/2024 3:05 PM EST DISTANCE HEALTH VISIT This Team Access Model visit is a virtual encounter. It required patient- provider interaction for the medical decision making as documented below. I have communicated my name and active licensure. The patient's identity and physical location wereverified at the time of this visit. Either the patient or their legal patient account representative has been informed of the risks and benefits of -- and alternatives to -- treatment through a remote evaluation andconsents to proceed with the evaluation remotely. Eb Hui is a 24 year old female seen for follow up AUB bleeding every 20-30 days, 4 days of bleeding and filling a pad every hour for the first 2 days. Denies pain or bleeding at any other time.Seen in Urgent care for UTI and diagnosed with Chlamydia. Partner denies any new partners. HISTORY REVIEWED (electronic chart updated): - medical history - medications - allergies REVIEW OF SYSTEMS: GENERAL: feeling well without fatigue, no recent change in weight PHYSICAL EXAMINATION: VIDEO EXAM: (if done, performed via video enabled technology) GENERAL: alert and appropriate, in no distress, well-hydrated, well nourished, and happy, smiling, interactive Latest Ref Rng 10/26/2024 WBC 3.70 - 11.00 k/uL 5.28 RBC 3.90 - 5.20 m/uL 4.48 Hemoglobin 11.5 - 15.5 g/dL 13.8 Hematocrit 36.0 - 46.0 % 40.4 MCV 80.0 - 100.0 fL 90.2 MCH 26.0 - 34.0 pg 30.8 MCHC 30.5 - 36.0 g/dL 34.2 RDW-CV 11.5 - 15.0 % 12.3 Platelet Count 150 - 400 k/uL 211 MPV 9.0 - 12.7 fL 9.4 Neut% % 54.9 Abs Neut (ANC) 1.45 - 7.50 k/uL 2.90 Lymph% % 35.4 Abs Lymph 1.00 - 4.00 k/uL 1.87 Garrard% % 8.3 Abs Garrard <0.87 k/uL 0.44 Eosin% % 0.8 Abs Eosin <0.46 k/uL 0.04 Baso% % 0.4 Abs Baso <0.11 k/uL <0.03 Immature Gran % % 0.2 IMMATURE GRANS (ABS) <0.10 k/uL <0.03 NRBC /100 WBC 0.0 Absolute nRBC <0.01 k/uL <0.01 DTYPE Auto GLUCOSE UA (POCT) Negative mg/dL Negative BILIRUBIN UA (POCT) Negative Negative KETONE UA (POCT) Negative mg/dL Negative SPECIFIC GRAVITY UA (POCT) 1.005 - 1.030 1.025 HEMOGLOBIN/BLOOD UA (POCT) Negative Negative PH UA (POCT) 4.5 - 8.0 6.0 PROTEIN UA (POCT) Negative mg/dL Negative UROBILINOGEN UA (POCT) Normal E.U./dL 0.2 NITRITE UA (POCT) Negative Negative LEUKOCYTES UA (POCT) Negative Negative COLOR UA (POCT) Yellow CLARITY UA (POCT) Clear Case Report Gynecologic Cytology Report Case: [id number] Specimen adequacy: Satisfactory for interpretation. Cytology Interpretation Negative for intraepithelial lesion or malignancy. Clinical History Routine Exam LMP 10/08/2024 Pap Disclaimer The Pap Smear is a screening test for cervical cancer. False negative results occur with all screening tests, emphasizing the need for rescreening at recommended intervals, and clinical correlation. TEST INFORMATION: This specimen has been analyzed by the ThinPrep Imaging System, an automated imaging and review system, which assists the laboratory in evaluating cells on ThinPrep Pap tests. Following automated imaging, selected hood from every slide are reviewed by a chart computer. Performing Lab Technical component, chart computer screening performed at [facility], [address] [place] [address] CLIA# [id number] Rancho species group RNA Not detected Not detected Rancho glabrata RNA Not detected Not detected Trichomonas vaginalis RNA Not detected Not detected Testosterone, Total, S 10.0 - 55.0 ng/dL 20.9 Testosterone, Free, S 0.10 - 0.85 ng/dL 0.45 Testosterone, % Free, S 0.50 - 2.80 % 2.16 Hemoglobin A1C 4.3 - 5.6 % 4.9 Estimated Average Glucose mg/dL 94 Neisseria gonorrhoeae RNA Not detected Not detected Chlamydia trachomatis RNA Not detected Detected ! Bacterial vaginosis Not detected Not detected TSH 0.270 - 4.200 mIU/L 0.651 Prolactin 4.4 - 33.8 ng/mL 9.6 DHEA-S 148.0 - 407.0 ug/dL 264.1 Culture 10,000 -<50,000 CFU/ml Normal urogenital ziggy Legend: ! Abnormal Indication Abnormal uterine bleeding, recurrent UTI's Impression The contour of the uterus and the endometrial cavity were evaluated with 3-D imaging. Findings are suggestive of arcuate uterus. The uterus is retroflexed and measures 85 mm x 55 mm x 71 mm. The endometrial thickness is 9.9 mm. There is a left lateral posterior wall echogenic area in the endometrial cavity with vascular flow that is suggestive of a polyp that measures 11 mm x 8 mm x 4 mm. The right ovary measures 38 mm x 22 mm x 14 mm. The left ovary measures 28 mm x 24 mm x 15 mm and contains a hemorrhagic corpus luteum cyst. There is trace amount of free fluid visualized. Recommendations Consider hysteroscopic evaluation and management of intracavitary lesion if clinically indicated. Arcuate uterus. ASSESSMENT/PLAN: 1. Endometrial polyp - ICD9: 621.0, ICD10: N84.0 (primary diagnosis) -Discussed hysteroscopic D&C vs Endosee in office. Would like hysteroscopic evaluation. Will await negative chlamydia testing prior to scheduling. 2. 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 Abnormal uterine bleeding (AUB) - ICD9: 626.9, ICD10: N93.9 -Discussed hysteroscopic D&C vs Endosee in office. Would like hysteroscopic evaluation 4. Chlamydial infection - ICD9: 079.98, ICD10: A74.9 -Repeat test of cure in 6 weeks Petty Rubalcava APRN.CNM I spent 20 minutes in the visit, with more than 50% of the total [id number] time of the visit in counseling / coordination of care. [facility] Telephone encounter Note * Telephone Encounter - Angelina Gloria RN - 11/02/2024 10:02 AM EST Patient notified. Moved up her VV to discuss options further. Angelina Gloria RN [facility]02-10[facility] Miscellaneous Notes* Telephone Encounter - Angelina Gloria RN - 11/02/2024 10:02 AM EST Patient notified. Moved up her VV to discuss options further. Angelina Gloria RN * Telephone Encounter - Petty Rubalcava APRN.CNM - 11/02/2024 9:00 AM EST Please notify patient this is likely a benign lesion but we would like to evaluate. She can have anin office endosee to see if present or we can have a physician complete a hysteroscopy with D&Cif needed. If she would like sooner follow up with me we can do virtual visit in any slot. Petty Rubalcava APRN.CNM * Telephone Encounter - Jolanta Day RN - 10/30/2024 2:25 PM EST Patient calling because she saw pelvic u/s results on mychart and is concerned. Her f/u appt is notuntil 11/17. Aware SAM back in the office 11/02. Jolanta Day RN documented in this encounter[facility]25 Telephone encounter Note * Telephone Encounter - Petty Rubalcava APRN.CNM - 11/02/2024 9:00 AM EST Please notify patient this is likely a benign lesion but we would like to evaluate. She can have anin office endosee to see if present or we can have a physician complete a hysteroscopy with D&Cif needed. If she would like sooner follow up with me we can do virtual visit in any slot. Petty Rubalcava APRN.CNM [facility]02-07-2025 Telephone encounter Note* Telephone Encounter - Jolanta Day RN - 10/30/2024 2:25 PM EST Patient calling because she saw pelvic u/s results on mychart and is concerned. Her f/u appt is notuntil 11/17. Aware SAM back in the office 11/02. Jolanta Day RN [facility]02-06-[facility]25 NoteHNO ID: [id number] Author: JEANIE REYNOLDS MD Service: ? Author Type: Physician Type: Progress Notes Filed: 10/29/2024 21:52 Note Text: The patient presents for requested ultrasound. Full report available in the Imaging tab in [facility]. Jeanie Reynolds, [facility]02-06-2025 History of Present illness Narrative* Jeanie Reynolds MD - 10/29/2024 9:31 PM EST The patient presents for requested ultrasound. Full report available in the Imaging tab in [facility]. Jeanie Reynolds MD documented in this encounterAv[facility]02-[facility]-2025 Telephone encounter Note * Telephone Encounter - Yordan Smalls APRN.CNP - 10/27/2024 8:38 AM EST I called Patient let her know positive chlamydia. Doxycycline was called in. Let her know about negative gonorrhea. [facility]02-04-2025 Miscellaneous Notes* Telephone Encounter - Yordan Smalls APRN.CNP - 10/27/2024 8:38 AM EST I called Patient let her know positive chlamydia. Doxycycline was called in. Let her know about negative gonorrhea. documented in this encounterAv[facility]02-[facility]-2025 NoteHNO ID: [id number] Author: YORDAN SMALLS APRN.CNP Service: ? Author Type: Nurse Practitioner Type: Progress Notes Filed: 10/26/2024 15:28 Note Text: CC: Patient presents with: Urinary Frequency: burning with urination x 4 days HPI Eb Hui is a 24 year old female who presents with complaint of possible UTI. These symptoms have been present for 4 days. Associated symptoms: urgency, frequency, and pressure Denies: fever, chills, sweats, abdominal pain, and flank pain Treatments: nothing The ROS was otherwise negative. PMH, Medications, labs, allergies, and recent past visits with PCP were reviewed and updated as able. PHYSICAL EXAM: BP 122/72 Pulse 60 Temp 36.8 ?C (98.2 ?F) Resp 16 Wt 71.1 kg (156 lb 12 oz) LMP 10/08/2024 SpO2 98% BMI 24.55 kg/m? General: Well appearing and alert CV: Regular rate and rhythm without obvious murmur Lungs: clear to auscultation bilaterally Back: straight and symmetric Abdomen: soft, nontender, nondistended PAST MEDICAL HISTORY Diagnosis Date Anemia during in third trimester 06/19/2019 Endometriosis Herpes 09/22/2020 Mental disorder depression/anxiety Migraine without aura 02/11/2015 PONV (postoperative nausea and vomiting) Pre-eclampsia in third trimester 07/06/2019 Recurrent UTI was to be evaluated by urology Scoliosis Tension type headache 02/11/2015 Uterine polyp PAST SURGICAL HISTORY Procedure Laterality Date TONSILLECTOMY AND ADENOIDECTOMY ALLERGIES Patient has no known allergies. MEDICATIONS amphetamine-dextroamphetamine XR (ADDERALL XR) 10 mg capsule Take 1 capsule by mouth every afternoon. (Patient not taking: Reported on 10/26/2024) ALPRAZolam (XANAX) 0.5 mg tablet (Patient not taking: Reported on 10/26/2024) FAMILY HISTORY Problem Relation Age of Onset Diabetes Mother Heart Mother Hypertension Father Heart Father No Known Problems Brother Heart Maternal Grandmother No Known Problems Maternal Grandfather Diabetes Paternal Grandmother No Known Problems Paternal Grandfather Social History Tobacco Use Smoking status: Every Day Current packs/day: 0.25 Average packs/day: 0.3 packs/day for 4.0 years (1.0 ttl pk-yrs) Types: Cigarettes Smokeless tobacco: Never Tobacco comments: 5 cigarettes daily Substance Use Topics Alcohol use: No Drug use: No ASSESSMENT/PLAN: 1. Urinary frequency - ICD9: 788.41, ICD10: R35.0 (primary diagnosis) - UA DIP, URINE (POC) - BACTERIAL CULTURE, URINE 2. Unprotected sex - ICD9: V69.2, ICD10: Z72.51 - GONORRHEA/CHLAMYDIA NAAT Self swab Other swabs ordered with director veterinary If anything is positive please treat.. Potential red flag symptoms discussed with the patient. Reviewed appropriate action plan to take if red flag symptoms occur. Patient agreeable to treatment plan. Yordan Smalls APRN.[facility]02-03-2025 History of Present illness Narrative* Yordan Smalls APRN.ELLIE - 10/26/2024 3:06 PM EST CC: Patient presents with: Urinary Frequency: burning with urination x 4 days HPI Eb Hui is a 24 year old female who presents with complaint of possible UTI. These symptoms have been present for 4 days. Associated symptoms: urgency, frequency, and pressure Denies: fever, chills, sweats, abdominal pain, and flank pain Treatments: nothing The ROS was otherwise negative. PMH, Medications, labs, allergies, and recent past visits with PCP were reviewed and updated as able. PHYSICAL EXAM: BP 122/72 Pulse 60 Temp 36.8 C (98.2 F) Resp 16 Wt 71.1 kg (156 lb 12 oz) LMP 10/08/2024 SpO2 98% BMI 24.55 kg/m General: Well appearing and alert CV: Regular rate and rhythm without obvious murmur Lungs: clear to auscultation bilaterally Back: straight and symmetric Abdomen: soft, nontender, nondistended PAST MEDICAL HISTORY Diagnosis Date Anemia during in third trimester 06/19/2019 Endometriosis Herpes 09/22/2020 Mental disorder depression/anxiety Migraine without aura 02/11/2015 PONV (postoperative nausea and vomiting) Pre-eclampsia in third trimester 07/06/2019 Recurrent UTI was to be evaluated by urology Scoliosis Tension type headache 02/11/2015 Uterine polyp PAST SURGICAL HISTORY Procedure Laterality Date TONSILLECTOMY & ADENOIDECTOMY <AGE 12 ALLERGIES Patient has no known allergies. MEDICATIONS amphetamine-dextroamphetamine XR (ADDERALL XR) 10 mg capsule Take 1 capsule by mouth every afternoon. (Patient not taking: Reported on 10/26/2024) ALPRAZolam (XANAX) 0.5 mg tablet (Patient not taking: Reported on 10/26/2024) FAMILY HISTORY Problem Relation Age of Onset Diabetes Mother Heart Mother Hypertension Father Heart Father No Known Problems Brother Heart Maternal Grandmother No Known Problems Maternal Grandfather Diabetes Paternal Grandmother No Known Problems Paternal Grandfather Social History Tobacco Use Smoking status: Every Day Current packs/day: 0.25 Average packs/day: 0.3 packs/day for 4.0 years (1.0 ttl pk-yrs) Types: Cigarettes Smokeless tobacco: Never Tobacco comments: 5 cigarettes daily Substance Use Topics Alcohol use: No Drug use: No ASSESSMENT/PLAN: 1. Urinary frequency - ICD9: 788.41, ICD10: R35.0 (primary diagnosis) - UA DIP, URINE (POC) - BACTERIAL CULTURE, URINE 2. Unprotected sex - ICD9: V69.2, ICD10: Z72.51 - GONORRHEA/CHLAMYDIA NAAT Self swab Other swabs ordered with director veterinary If anything is positive please treat.. Potential red flag symptoms discussed with the patient. Reviewed appropriate action plan to take if red flag symptoms occur. Patient agreeable to treatment plan. Yordan Smalls APRN.ELLIE documented in this encounterAv[facility]02-[facility]-2025 Instructions* Patient Instructions* Petty Rubalcava APRN.[facility] - 10/26/2024 9:12 AM EST What is HPV? Human papilloma virus or HPV is a very common virus. There are about 40 types of HPV that can infect the genitals or sex organs of men and women. HPV is so common that most people get it at some timein their lives. HPV usually causes no symptoms and most people do not know that they have it. Certain types of HPV can cause genital warts. Some types of HPV can cause changes on a woman's cervix that can lead to cervical cancer over time. Most of the time, the body's immune systems fights off HPV naturally within two years-before HPV causes any health problems. How is HPV Prevented? The only way to avoid HPV totally would be to never be sexually active.Limiting sexual partners andusing condoms each time you have sex is helpful.In addition, there is a vaccine that protects against some of the HPV strains that cause genital warts or cervical cancer. This vaccine is approved forwomen ages 9-26.It does not prevent against all types of HPV and does not prevent you from getting other sexually transmitted diseases. How could I get HPV? HPV is passed on through genital (skin to skin) contact, most often during vaginal or anal sex. HPVmay also be passed on during oral sex. All women who have ever been sexually active are at risk of chon HPV. HPV is NOT the same as HIV (the aids virus) or herpes. All viruses can be passed onduring sex. But they do not cause the same symptoms or health problems. Most people never know that they have HPV or that they are passing it to their partner. It may not be possible to know who gave you HPV or when you got it. HPV is so common that most people get it soon after they start having sex. It may only be found years later. Can HPV Be Treated? There is no cure for HPV. Most of the time your body fights the virus on its own. If the infection causes genital warts or cervical cancer there are treatments for these problems, but not for HPV itself. Even after these conditions are treated, HPV can stay in your body and be passed on to sexual pa rtners. How do I talk to my partner about HPV? HPV testing is not recommended for men, nor is it recommended for finding HPV on the genitals or inthe mouth or throat. The body usually fights off the HPV naturally before it causes health problems. Partners who have been together for a while tend to share HPV. This means that your partner likely has HPV already, even though they have no signs or symptoms. Having HPV does NOT mean that you or your partner is having sex outside the relationship. There is no sure way to know when you got HPV or who gave it to you. A person can have HPV for many years before it is found. documented in this encounterAv[facility]02-03-2025 NoteHNO ID: [id number] Author: PETTY RUBALCAVA APRN.CNM Service: ? Author Type: [employer] Type: Progress Notes Filed: 10/26/2024 12:38 Note Text: Eb is a 24 year old who presents for an annual gynecologic exam with complaints, heavy and irregular bleeding. AUB bleeding every 20-30 days, 4 days of bleeding and filling a pad every hour for the first 2 days. Denies pain or bleeding at any other time. 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: 10/08/2024, Having periods Age at Menarche: 12 Age at First : Age at Menopause: Construction Tech History Comments: Sexual Activity: Yes; Male Contraception: Condom Menstrual Tracking History Flowsheet Row Office Visit from 10/26/2024 in OB/Gynecology Period Cycle (Days) 4 Period Duration (Days) 4 Menstrual Flow Heavy PAST MEDICAL HISTORY Diagnosis Date Anemia during in third trimester 06/19/2019 Endometriosis Herpes 09/22/2020 Mental disorder depression/anxiety Migraine without aura 02/11/2015 PONV (postoperative nausea and vomiting) Pre-eclampsia in third trimester 07/06/2019 Recurrent UTI was to be evaluated by urology Scoliosis Tension type headache 02/11/2015 Uterine polyp PAST SURGICAL HISTORY Procedure Laterality Date TONSILLECTOMY AND ADENOIDECTOMY FAMILY HISTORY Problem Relation Age of Onset Diabetes Mother Heart Mother Hypertension Father Heart Father No Known Problems Brother Heart Maternal Grandmother No Known Problems Maternal Grandfather Diabetes Paternal Grandmother No Known Problems Paternal Grandfather SOCIAL HISTORY Social History Tobacco Use Smoking status: Every Day Current packs/day: 0.25 Average packs/day: 0.3 packs/day for 4.0 years (1.0 ttl pk-yrs) Types: Cigarettes Smokeless tobacco: Never Tobacco comments: 5 cigarettes daily Substance Use Topics Alcohol use: No Drug use: No REVIEW OF SYSTEMS Abdomen: No abdominal pain, nausea, vomiting, diarrhea, or constipation. No bloating, early satiety, indigestion, or increased flatulence. Bladder: No dysuria, gross hematuria, urinary frequency, urinary urgency, or incontinence. Breast: No breast lumps, nipple d/c, overlying skin changes, redness or skin retraction. Allergies and current medication updated:Yes SENSITIVE EXAM: The sensitive examination was discussed with the Patient or Patient's Authorized Division Order Technician. As applicable, any other physician, advance practice provider, medical student, or other health professional student that will be observing or involved in the sensitive examination for educational or training purposes was discussed with the Patient or Authorized Division Order Technician. The Patient or Authorized Division Order Technician has agreed to proceed with the sensitive examination. (Sensitive examination includes inspection and/or palpation of the breasts, pelvis, prostate and anorectal regions). EXAM: BP 112/70 Ht 5' 7 (1.70m) Wt 155 lb (70.3kg) LMP 10/08/2024 BMI 24.27 kg/(m2). GENERAL: pleasant, female in no apparent distress HEENT: Normocephalic, atraumatic, mucus membranes moist, and no lesions NECK: Supple, full range of motion, no adenopathy, and thyroid normal DERMATOLOGY: Normal, without lesions, non-icteric, and non-hirsute BREAST: soft, non-tender, symmetric, no dominant mass, normal nipple-areolar complex, no lymphadenopathy, and no nipple discharge CHEST: Normal inspiratory effort ABDOMEN: soft, non-tender, and no masses PELVIC: external genitalia normal, normal Bartholin's glands, urethra, White Clay's glands, no vulvar lesions, no cervical lesions, good vaginal support, physiologic discharge present, normal appearing perineal body and perianal region BIMANUAL: uterus normal size, shape and consistency, no adnexal masses, and non-tender RECTOVAGINAL: deferred. NEURO: alert and oriented x3,exam grossly non-focal EXTREMITIES: normal ASSESSMENT/PLAN: 1. Encounter for gynecological examination (general) (routine) with abnormal findings - ICD9: V72.31, ICD10: Z01.411 (primary diagnosis) - Completed pelvic and breast exam - Encouraged monthly BSE - Follow up for annual exam in one year. - PAP TEST - GONORRHEA/CHLAMYDIA NAAT 2. Screening for cervical cancer - ICD9: V76.2, ICD10: Z12.4 - Completed pelvic and breast exam - Encouraged monthly BSE - Follow up for annual exam in one year. - PAP TEST 3. Encounter (more content not included)...[facility]02-03-2025 History of Present illness Narrative* Petty Rubalcava APRN.CNM - 10/26/2024 8:11 AM EST Eb is a 24 year old who presents for an annual gynecologic exam with complaints, heavy and irregular bleeding. AUB bleeding every 20-30 days, 4 days of bleeding and filling a pad every hour for the first 2 days. Denies pain or bleeding at any other time. 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: 10/08/2024, Having periods Age at Menarche: 12 Age at First : Age at Menopause: Construction Tech History Comments: Sexual Activity: Yes; Male Contraception: Condom Menstrual Tracking History Flowsheet Row Office Visit from 10/26/2024 in OB/Gynecology Period Cycle (Days) 4 Period Duration (Days) 4 Menstrual Flow Heavy PAST MEDICAL HISTORY Diagnosis Date Anemia during in third trimester 06/19/2019 Endometriosis Herpes 09/22/2020 Mental disorder depression/anxiety Migraine without aura 02/11/2015 PONV (postoperative nausea and vomiting) Pre-eclampsia in third trimester 07/06/2019 Recurrent UTI was to be evaluated by urology Scoliosis Tension type headache 02/11/2015 Uterine polyp PAST SURGICAL HISTORY Procedure Laterality Date TONSILLECTOMY & ADENOIDECTOMY <AGE 12 FAMILY HISTORY Problem Relation Age of Onset Diabetes Mother Heart Mother Hypertension Father Heart Father No Known Problems Brother Heart Maternal Grandmother No Known Problems Maternal Grandfather Diabetes Paternal Grandmother No Known Problems Paternal Grandfather SOCIAL HISTORY Social History Tobacco Use Smoking status: Every Day Current packs/day: 0.25 Average packs/day: 0.3 packs/day for 4.0 years (1.0 ttl pk-yrs) Types: Cigarettes Smokeless tobacco: Never Tobacco comments: 5 cigarettes daily Substance Use Topics Alcohol use: No Drug use: No REVIEW OF SYSTEMS Abdomen: No abdominal pain, nausea, vomiting, diarrhea, or constipation. No bloating, early satiety, indigestion, or increased flatulence. Bladder: No dysuria, gross hematuria, urinary frequency, urinary urgency, or incontinence. Breast: No breast lumps, nipple d/c, overlying skin changes, redness or skin retraction. Allergies and current medication updated:Yes SENSITIVE EXAM: The sensitive examination was discussed with the Patient or Patient's Authorized Division Order Technician. As applicable, any other physician, advance practice provider, medical student, or other health professional student that will be observing or involved in the sensitive examination for educational or training purposes was discussed with the Patient or Authorized Division Order Technician. The Patient or Authorized Division Order Technician has agreed to proceed with the sensitive examination. (Sensitive examination includes inspection and/or palpation of the breasts, pelvis, prostate and anorectal regions). EXAM: BP 112/70 Ht 5' 7 (1.70m) Wt 155 lb (70.3kg) LMP 10/08/2024 BMI 24.27 kg/(m^2). GENERAL: pleasant, female in no apparent distress HEENT: Normocephalic, atraumatic, mucus membranes moist, and no lesions NECK: Supple, full range of motion, no adenopathy, and thyroid normal DERMATOLOGY: Normal, without lesions, non-icteric, and non-hirsute BREAST: soft, non-tender, symmetric, no dominant mass, normal nipple-areolar complex, no lymphadenopathy, and no nipple discharge CHEST: Normal inspiratory effort ABDOMEN: soft, non-tender, and no masses PELVIC: external genitalia normal, normal Bartholin's glands, urethra, White Clay's glands, no vulvar lesions, no cervical lesions, good vaginal support, physiologic discharge present, normal appearing perineal body and perianal region BIMANUAL: uterus normal size, shape and consistency, no adnexal masses, and non-tender RECTOVAGINAL: deferred. NEURO: alert and oriented x3,exam grossly non-focal EXTREMITIES: normal ASSESSMENT/PLAN: 1. Encounter for gynecological examination (general) (routine) with abnormal findings - ICD9: V72.31, ICD10: Z01.411 (primary diagnosis) - Completed pelvic and breast exam - Encouraged monthly BSE - Follow up for annual exam in one year. - PAP TEST - GONORRHEA/CHLAMYDIA NAAT 2. Screening for cervical cancer - ICD9: V76.2, ICD10: Z12.4 - Completed pelvic and breast exam - Encouraged monthly BSE - Follow up for annual exam in one year. - PAP TEST 3. Encounter for screening for human papillomavirus (HPV) - ICD9: V73.81, ICD10: Z11.51 - PAP TEST 4. 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 5. Dysuria - ICD9: 788.1, ICD10: R30.0 - BACTERIAL CULTURE, URINE - CONSULT TO UROLOGY 6. Abnormal uterine bleeding (AUB) - ICD9: 626.9, ICD10: N93.9 - THYROID STIMULATING HORMONE - PELVIC US WHI - PROLACTIN - COMPLETE BLOOD COUNT AND DIFFERENTIAL - TESTOSTERONE, FREE AND TOTAL, BY EQUILIBRIUM ULTRAFILTRATION MASS SPECTROMETRY - HEMOGLOBIN A1C - DHEA-S BLD 7. Smoker - ICD9: 305.1, ICD10: F17.200 - Cessation encouraged. - Physiologic and physical aspects of tobacco addiction as well as strategies for quitting were discussed. - Counseling was given focusing on the harmful effects of this addiction especially given the patient's medical condition(s) which will be worsened because of the chemicals in tobacco. - Counseling was given 10 minutes. 1) Health maintenance: Pap done with HPV. Nutrition, exercise and routine health maintenance exams reviewed. Calcium/Vitamin D supplementation information provided. Smoking cessation: Smoking cessation encouraged and resources provided. Benefits of smoking cessation reviewed. Patient encouraged to avoid smoking. Lipids/glucose: followed by PCP Vitamin D: followed by PCP HPV vaccine: completed series 2) Contraception: vasectomy. Contraceptive options reviewed and information provided. 3) STD screening: Declined STD check. 4) Follow up one year or sooner as needed Petty Rubalcava APRN.CNM I spent 60 minutes in the visit, with more than 50% of the total [id number] time of the visit in counseling / coordination of care. documented in this encounter[facility]24 NoteHNO ID: [id number] Author: LYNN SMALLS MD Service: ? Author Type: Physician Type: Progress Notes Filed: 08/07/2024 12:36 Note Text: Eb Hui is a 24 year old female who presents for problem visit. HPI: Patient presents with right breast lump. She noticed it 2 months ago and thought it was a pimple. Over the past month it has been more tender. Size seems to be stable. 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 PAST MEDICAL HISTORY Diagnosis Date Anemia during in third trimester 06/19/2019 Herpes 09/22/2020 Mental disorder depression/anxiety Migraine without aura 02/11/2015 PONV (postoperative nausea and vomiting) Pre-eclampsia in third trimester 07/06/2019 Recurrent UTI was to be evaluated by urology Scoliosis Tension type headache 02/11/2015 PAST SURGICAL HISTORY Procedure Laterality Date TONSILLECTOMY AND ADENOIDECTOMY FAMILY HISTORY Problem Relation Age of Onset Diabetes Mother Heart Mother Hypertension Father Heart Father No Known Problems Brother Heart Maternal Grandmother No Known Problems Maternal Grandfather Diabetes Paternal Grandmother No Known Problems Paternal Grandfather Social History Tobacco Use Smoking status: Every Day Current packs/day: 0.25 Average packs/day: 0.3 packs/day for 4.0 years (1.0 ttl pk-yrs) Types: Cigarettes Smokeless tobacco: Never Tobacco comments: 5 cigarettes daily Substance Use Topics Alcohol use: No Drug use: No Current Outpatient Medications Medication Sig amphetamine-dextroamphetamine XR (ADDERALL XR) 10 mg capsule Take 1 capsule by mouth every afternoon. ALPRAZolam (XANAX) 0.5 mg tablet albuterol HFA (PROAIR HFA) 90 mcg/actuation inhaler Inhale 2 Puffs as instructed every 6 hours as needed. (Patient not taking: Reported on 11/03/2023) predniSONE (DELTASONE) 10 mg tablet Take 4 tabs daily for 3 days, then 2 tabs daily for 3 days, then 1 tab daily for 3 days with food. (Patient not taking: Reported on 08/21/2023) L. acidophilus-L. rhamnosus 15 billion cell cap Take 1 capsule by mouth once daily. FLORAJEN WOMEN. If on antibiotic, take at least 1-2 hours before or after antibiotic. KEEP REFRIGERATED (Patient not taking: Reported on 05/22/2023) lactobacillus rhamnosus (CULTURELLE) 10 billion cell capsule Take 1 capsule by mouth once daily. (Patient not taking: Reported on 07/16/2023) No current facility-administered medications for this visit. Allergies As of Date: 08/07/2024 (No Known Allergies) Fully Assessed 08/07/2024 Allergies and current medication updated:Yes SENSITIVE EXAM: The sensitive examination was discussed with the Patient or Patient's Authorized Division Order Technician. As applicable, any other physician, advance practice provider, medical student, or other health professional student that will be observing or involved in the sensitive examination for educational or training purposes was discussed with the Patient or Authorized Division Order Technician. The Patient or Authorized Division Order Technician has agreed to proceed with the sensitive examination. (Sensitive examination includes inspection and/or palpation of the breasts, pelvis, prostate and anorectal regions). EXAM: BP 124/82 Wt 157 lb (71.2kg) LMP 07/23/2024 GENERAL: pleasant, female in no apparent distress BREAST: soft, non-tender, symmetric, no dominant mass, normal nipple-areolar complex, no lymphadenopathy, no nipple discharge, and fibrocystic changes bilaterally ASSESSMENT AND PLAN: Assessment AND Plan Fibrocystic breast changes of both breasts Patient reassured on normal breast exam. Reviewed conservative measures to help with fibrocystic breasts. Medical Decision Making: Problems: Low: Acute, uncomplicated illness or injury Risk: Low: Low risk from testing/treatment Medical Decision Making Level: 3 - Low Lynn Smalls [facility]11-15-2024 History of Present illness Narrative* Lynn Smalls MD - 08/07/2024 11:31 AM EST Eb Hui is a 24 year old female who presents for problem visit. HPI: Patient presents with right breast lump. She noticed it 2 months ago and thought it was a pimple. Over the past month it has been more tender. Size seems to be stable. 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 PAST MEDICAL HISTORY Diagnosis Date Anemia during in third trimester 06/19/2019 Herpes 09/22/2020 Mental disorder depression/anxiety Migraine without aura 02/11/2015 PONV (postoperative nausea and vomiting) Pre-eclampsia in third trimester 07/06/2019 Recurrent UTI was to be evaluated by urology Scoliosis Tension type headache 02/11/2015 PAST SURGICAL HISTORY Procedure Laterality Date TONSILLECTOMY & ADENOIDECTOMY <AGE 12 FAMILY HISTORY Problem Relation Age of Onset Diabetes Mother Heart Mother Hypertension Father Heart Father No Known Problems Brother Heart Maternal Grandmother No Known Problems Maternal Grandfather Diabetes Paternal Grandmother No Known Problems Paternal Grandfather Social History Tobacco Use Smoking status: Every Day Current packs/day: 0.25 Average packs/day: 0.3 packs/day for 4.0 years (1.0 ttl pk-yrs) Types: Cigarettes Smokeless tobacco: Never Tobacco comments: 5 cigarettes daily Substance Use Topics Alcohol use: No Drug use: No Current Outpatient Medications Medication Sig amphetamine-dextroamphetamine XR (ADDERALL XR) 10 mg capsule Take 1 capsule by mouth every afternoon. ALPRAZolam (XANAX) 0.5 mg tablet albuterol HFA (PROAIR HFA) 90 mcg/actuation inhaler Inhale 2 Puffs as instructed every 6 hours as needed. (Patient not taking: Reported on 11/03/2023) predniSONE (DELTASONE) 10 mg tablet Take 4 tabs daily for 3 days, then 2 tabs daily for 3 days, then 1 tab daily for 3 days with food. (Patient not taking: Reported on 08/21/2023) L. acidophilus-L. rhamnosus 15 billion cell cap Take 1 capsule by mouth once daily. FLORAJEN WOMEN.If on antibiotic, take at least 1-2 hours before or after antibiotic. KEEP REFRIGERATED (Patient not taking: Reported on 05/22/2023) lactobacillus rhamnosus (CULTURELLE) 10 billion cell capsule Take 1 capsule by mouth once daily. (Patient not taking: Reported on 07/16/2023) No current facility-administered medications for this visit. Allergies As of Date: 08/07/2024 (No Known Allergies) Fully Assessed 08/07/2024 Allergies and current medication updated:Yes SENSITIVE EXAM: The sensitive examination was discussed with the Patient or Patient's Authorized Division Order Technician. As applicable, any other physician, advance practice provider, medical student, or other health professional student that will be observing or involved in the sensitive examination for educational or training purposes was discussed with the Patient or Authorized Division Order Technician. The Patient or Authorized Division Order Technician has agreed to proceed with the sensitive examination. (Sensitive examination includes inspection and/or palpation of the breasts, pelvis, prostate and anorectal regions). EXAM: BP 124/82 Wt 157 lb (71.2kg) LMP 07/23/2024 GENERAL: pleasant, female in no apparent distress BREAST: soft, non-tender, symmetric, no dominant mass, normal nipple-areolar complex, no lymphadenopathy, no nipple discharge, and fibrocystic changes bilaterally ASSESSMENT AND PLAN: Assessment & Plan Fibrocystic breast changes of both breasts Patient reassured on normal breast exam. Reviewed conservative measures to help with fibrocystic breasts. Medical Decision Making: Problems: Low: Acute, uncomplicated illness or injury Risk: Low: Low risk from testing/treatment Medical Decision Making Level: 3 - Low Lynn Smalls MD documented in this encounter[facility]04-[facility]24 Miscellaneous Notes* Telephone Encounter - Willow Jacinto APRN.CNP - 12/24/2023 8:58 AM EDT Patient advised of test results[facility]. She will take as directed. Willow Jacinto APRN.CNP documented in this encounterAv[facility]04-01-2024 History of Present illness Narrative* Petty Uriostegui APRN.CNP - 12/23/2023 6:16 PM EDT This note was created using NoteWriter. Subjective Eb Hui is a 23 year old female. 23 year old female with PMH of bacterial vaginosis and STIs presents with acute onset dysuria for 24 hours. Pertinent positives include white pink tinged vaginal discharge, vaginal itching, vaginal burning, foul odor, urinary urgency and abdominal discomfort. Pertinent negatives include urinary frequency, hematuria, fever, chills, nausea, vomiting, dyspareunia, lower back pain and flank pain. LMPwas at the beginning of November and is sexually active. Not on contraception but states she has had the same sexual partner for one year and he had a vasectomy. Patient reports possibility of STIs but no known exposure. The history is provided by the patient. UTI This is a new problem. The current episode started yesterday. The problem has not changed since onset.The quality of the pain is described as burning. There has been no fever. She is Sexually active.Associated symptoms include discharge and urgency. Pertinent negatives include no chills, no nausea, no vomiting, no frequency, no hematuria, no possible and no flank pain. She has tried nothing for the symptoms. Her past medical history is significant for recurrent UTIs. PAST MEDICAL HISTORY Diagnosis Date Anemia during in third trimester 06/19/2019 Herpes 09/22/2020 Mental disorder depression/anxiety Migraine without aura 02/11/2015 PONV (postoperative nausea and vomiting) Pre-eclampsia in third trimester 07/06/2019 Recurrent UTI was to be evaluated by urology Scoliosis Tension type headache 02/11/2015 PAST SURGICAL HISTORY Procedure Laterality Date TONSILLECTOMY & ADENOIDECTOMY <AGE 12 ALLERGIES Patient has no known allergies. MEDICATIONS ALPRAZolam (XANAX) 0.5 mg tablet fluconazole (DIFLUCAN) 150 mg tablet Take 1 tablet by mouth once daily for 1 day. metroNIDAZOLE (FLAGYL) 500 mg tablet Take 1 tablet by mouth two times a day for 7 days. albuterol HFA (PROAIR HFA) 90 mcg/actuation inhaler Inhale 2 Puffs as instructed every 6 hours as needed. (Patient not taking: Reported on 11/03/2023) predniSONE (DELTASONE) 10 mg tablet Take 4 tabs daily for 3 days, then 2 tabs daily for 3 days, then 1 tab daily for 3 days with food. (Patient not taking: Reported on 08/21/2023) L. acidophilus-L. rhamnosus 15 billion cell cap Take 1 capsule by mouth once daily. FLORAJEN WOMEN.If on antibiotic, take at least 1-2 hours before or after antibiotic. KEEP REFRIGERATED (Patient not taking: Reported on 05/22/2023) lactobacillus rhamnosus (CULTURELLE) 10 billion cell capsule Take 1 capsule by mouth once daily. (Patient not taking: Reported on 07/16/2023) FAMILY HISTORY Problem Relation Age of Onset Diabetes Mother Heart Mother Hypertension Father Heart Father No Known Problems Brother Heart Maternal Grandmother No Known Problems Maternal Grandfather Diabetes Paternal Grandmother No Known Problems Paternal Grandfather Social History Tobacco Use Smoking status: Every Day Packs/day: 0.25 Years: 4.00 Additional pack years: 0.00 Total pack years: 1.00 Types: Cigarettes Smokeless tobacco: Never Tobacco comments: 5 cigarettes daily Substance Use Topics Alcohol use: No Drug use: No Review of Systems Constitutional: Positive for appetite change. Negative for activity change, chills, fatigue and fever. Gastrointestinal: Negative for abdominal pain, diarrhea, nausea and vomiting. Genitourinary: Positive for dysuria, urgency and vaginal discharge. Negative for decreased urine volume, difficulty urinating, dyspareunia, flank pain, frequency, hematuria, vaginal bleeding and vaginal pain. Musculoskeletal: Negative for back pain and myalgias. Objective BP 118/78 Pulse 81 Temp 37.2 C (99 F) Resp 21 Wt 76 kg (167 lb 8.8 oz) LMP 06/27/2023 (Approximate) SpO2 99% BMI 26.24 kg/m Physical Exam Vitals reviewed. Constitutional: General: She is awake. She is not in acute distress. Appearance: Normal appearance. She is normal weight. She is not ill-appearing, toxic-appearing or diaphoretic. HENT: Head: Normocephalic and atraumatic. Right Ear: Hearing normal. Left Ear: Hearing normal. Nose: Nose normal. Eyes: General: Lids are normal. Gaze aligned appropriately. No allergic shiner. Cardiovascular: Rate and Rhythm: Normal rate and regular rhythm. Heart sounds: Normal heart sounds, S1 normal and S2 normal. Heart sounds not distant. No murmur heard. No friction rub. No gallop. No S3 or S4 sounds. Pulmonary: Effort: Pulmonary effort is normal. No tachypnea, bradypnea, accessory muscle usage, prolonged expiration, respiratory distress or retractions. Breath sounds: Normal breath sounds. No stridor or decreased air movement. No decreased breath sounds, wheezing, rhonchi or rales. Chest: Chest wall: No tenderness. Abdominal: General: Abdomen is flat. Bowel sounds are normal. There is no distension. Palpations: Abdomen is soft. There is no mass. Tenderness: There is no abdominal tenderness. There is no right CVA tenderness, left CVA tenderness, guarding or rebound. Negative signs include McBurney's sign. Hernia: No hernia is present. Genitourinary: Comments: Patient deferred. Musculoskeletal: General: Normal range of motion. Cervical back: Normal range of motion. Skin: General: Skin is warm and dry. Capillary Refill: Capillary refill takes less than 2 seconds. Coloration: Skin is not jaundiced or pale. Findings: No bruising, erythema, lesion or rash. Neurological: General: No focal deficit present. Mental Status: She is alert and oriented to person, place, and time. GCS: GCS eye subscore is 4. GCS verbal subscore is 5. GCS motor subscore is 6. Motor: No weakness. Coordination: Coordination normal. Gait: Gait normal. Psychiatric: Mood and Affect: Mood normal. Behavior: Behavior normal. Behavior is cooperative. Thought Content: Thought content normal. Judgment: Judgment normal. Assessment and Plan ASSESSMENT/PLAN: 1. Encounter for sexually transmitted disease counseling - ICD9: V65.45, ICD10: Z70.8 (primary diagnosis) - Acute onset white and pink tinged vaginal discharge starting yesterday. Reports foul odor, vaginal itching, and burning. - Sexually active - Patient declined pelvic exam, requests self swab Well-appearing. Afebrile, abdomen soft and nontender to palpation. - RANCHO/TRICHOMONAS NAAT - BACTERIAL VAGINOSIS NAAT - GONORRHEA/CHLAMYDIA NAAT 2. Dysuria - ICD9: 788.1, ICD10: R30.0 Acute - Acute onset dysuria x1 day. Denies frequency, hematuria, body aches, fever and chills. Reports urgency. - Afebrile, vitals stable - Well-appearing. LCTA. Abdomen soft and nontender to palpation, negative CVA tenderness bilaterally. - Suspect vaginitis rule-out UTI - UA positive for kristin esterase and hematuria - Send urine for culture - Patient education for prevention given - UA DIP, URINE (POC) - URINE CULTURE - RANCHO/TRICHOMONAS NAAT - BACTERIAL VAGINOSIS NAAT - GONORRHEA/CHLAMYDIA NAAT 3. Vaginal discharge - ICD9: 623.5, ICD10: N89.8 - Acute onset white pink tinged vaginal discharge with foul odor, vaginal itching and vaginal burning. Denies flank pain, fever, chills, and body aches. - LMP at the beginning of november, no concern for - Patient declined pelvic exam. Well-appearing. Afebrile, abdomen soft and nontender to palpation. - Suspect vaginitis/STI/and or rule-out UTI - RANCHO/TRICHOMONAS NAAT - BACTERIAL VAGINOSIS NAAT - GONORRHEA/CHLAMYDIA NAAT - Discussed with patient waiting for results prior to starting treatment, patient addiment this is bacterial vaginosis and preferred to start treatment. - Educated on female hygiene and importance of establishing with ADVERTISING SPECIALIST for recurrent bacterial vaginosis - Start diflucan and rima Knowles TEACHING PROVIDER (Physician/PA/INTELLECTUAL PROPERTY LAWYER) NOTE OF PERSONAL INVOLVEMENT IN CARE: I have personally seen and examined the patient and performed the medical decision-making components. I have reviewed the Advanced Practice Registered Nurse (INTELLECTUAL PROPERTY LAWYER) Student's documentation and verified the findings in the note as written. Any additions or changes are noted in bold/italics. Signature: Petty Uriostegui Date: 12/23/2023 Time: 7:22 PM documented in this encounterAvita Health System02-19-2024 Telephone encounter Note * Telephone Encounter - Malathi Faith RN - 11/11/2023 11:39 AM EST Message sent to [employer] to schedule for apt with Dr. Mcdaniels in November. Malathi Faith RN [facility] Miscellaneous Notes* Telephone Encounter - Malathi Faith RN - 11/11/2023 11:39 AM EST Message sent to [employer] to schedule for apt with Dr. Mcdaniels in November. Malathi Faith RN * Telephone Encounter - Petty Mccartney - 11/11/2023 9:18 AM EST CV PHONE Name of caller : Eb Relationship to patient : Self If not self Will need patient permission to release results or disclose health information with called documented in fyi. Patient identified by Name and Date of . ( Eb Hui, 2000). Yes Number to return call [phone] Reason for Call: Patient is calling to schedule follow up with Dr. Mcdaniels. Patient states was nervous about completing some kind of injection and kept putting off follow up regarding a tumor. Please review chart and have front office director call to schedule follow up. Thank you calling [facility]. You will receive a return call within 48hours ( or 2 business days if close to the weekend). If you feel that this is an urgent issue and needs immediate attention, it is recommended that you contact your primary care provider office or proceed to your nearest Urgent Care Center of Emergency Room ED for evaluation/treatment. documented in this encounterAvita Health System02-19-2024 Telephone encounter Note * Telephone Encounter - Petty Mccartney - 11/11/2023 9:18 AM EST CV PHONE Name of caller : Eb Relationship to patient : Self If not self Will need patient permission to release results or disclose health information with called documented in fyi. Patient identified by Name and Date of . ( [place] Hui, 2000). Yes Number to return call [phone] Reason for Call: Patient is calling to schedule follow up with Dr. Mcdaniels. Patient states was nervous about completing some kind of injection and kept putting off follow up regarding a tumor. Please review chart and have front office director call to schedule follow up. Thank you calling [facility]. You will receive a return call within 48hours ( or 2 business days if close to the weekend). If you feel that this is an urgent issue and needs immediate attention, it is recommended that you contact your primary care provider office or proceed to your nearest Urgent [facility] Emergency Room ED for evaluation/treatment. [facility] History of Present illness Narrative* Ricardo Campuzano APRN.FINAL TOUCH UP PAINTER - 11/03/2023 1:46 PM EST Subjective HPI HPI Eb Hui is a 23 year old female who presents today for CC of cough, sinus pressure. This started 1 week ago/worsenning. Has tried otc medication for relief. Symptoms are worsened by nothing.Risk factors, smoker/recently quit. Denies possibility of being . .Patient presents with: Nasal Congestion: No taste or smell, chest pain, sob, cough, chills x 1 week PAST MEDICAL HISTORY Diagnosis Date Anemia during in third trimester 06/19/2019 Herpes 09/22/2020 Mental disorder depression/anxiety Migraine without aura 02/11/2015 PONV (postoperative nausea and vomiting) Pre-eclampsia in third trimester 07/06/2019 Recurrent UTI was to be evaluated by urology Scoliosis Tension type headache 02/11/2015 PAST SURGICAL HISTORY Procedure Laterality Date TONSILLECTOMY & ADENOIDECTOMY <AGE 12 ALLERGIES Patient has no known allergies. MEDICATIONS ALPRAZolam (XANAX) 0.5 mg tablet albuterol HFA (PROAIR HFA) 90 mcg/actuation inhaler Inhale 2 Puffs as instructed every 6 hours as needed. (Patient not taking: Reported on 11/03/2023) predniSONE (DELTASONE) 10 mg tablet Take 4 tabs daily for 3 days, then 2 tabs daily for 3 days, then 1 tab daily for 3 days with food. (Patient not taking: Reported on 08/21/2023) L. acidophilus-L. rhamnosus 15 billion cell cap Take 1 capsule by mouth once daily. FLORAJEN WOMEN.If on antibiotic, take at least 1-2 hours before or after antibiotic. KEEP REFRIGERATED (Patient not taking: Reported on 05/22/2023) lactobacillus rhamnosus (CULTURELLE) 10 billion cell capsule Take 1 capsule by mouth once daily. (Patient not taking: Reported on 07/16/2023) FAMILY HISTORY Problem Relation Age of Onset Diabetes Mother Heart Mother Hypertension Father Heart Father No Known Problems Brother Heart Maternal Grandmother No Known Problems Maternal Grandfather Diabetes Paternal Grandmother No Known Problems Paternal Grandfather Social History Tobacco Use Smoking status: Every Day Packs/day: 0.25 Years: 4.00 Additional pack years: 0.00 Total pack years: 1.00 Types: Cigarettes Smokeless tobacco: Never Tobacco comments: 5 cigarettes daily Substance Use Topics Alcohol use: No Drug use: No Review of Systems Constitutional: Positive for fever. HENT: Positive for congestion and sinus pain. Negative for ear pain, nosebleeds and sore throat. Respiratory: Positive for cough and sputum production. Negative for shortness of breath and wheezing. Cardiovascular: Negative for chest pain. Musculoskeletal: Negative for neck pain. Skin: Negative for itching and rash. Objective Blood pressure 120/88, pulse 105, temperature 37.3 C (99.1 F), resp. rate 21, weight 73.7 kg (162 lb 6.4 oz), last menstrual period 06/27/2023, SpO2 98%. Physical Exam Constitutional: General: She is not in acute distress. Appearance: She is not toxic-appearing or diaphoretic. HENT: Head: Normocephalic and atraumatic. Right Ear: Hearing, tympanic membrane, ear canal and external ear normal. Left Ear: Hearing, tympanic membrane, ear canal and external ear normal. Nose: Nose normal. Mouth/Throat: Pharynx: Uvula midline. No pharyngeal swelling, oropharyngeal exudate, posterior oropharyngeal erythema or uvula swelling. Eyes: General: Lids are normal. No scleral icterus. Right eye: No discharge. Left eye: No discharge. Conjunctiva/sclera: Conjunctivae normal. Pupils: Pupils are equal, round, and reactive to light. Neck: Trachea: Trachea normal. Cardiovascular: Rate and Rhythm: Normal rate and regular rhythm. Heart sounds: Normal heart sounds. Pulmonary: Effort: Pulmonary effort is normal. Breath sounds: Examination of the left-lower field reveals rhonchi. Rhonchi present. No decreased breath sounds, wheezing or rales. Musculoskeletal: Cervical back: Normal range of motion and neck supple. Lymphadenopathy: Cervical: No cervical adenopathy. Right cervical: No superficial cervical adenopathy. Left cervical: No superficial cervical adenopathy. Skin: Findings: No rash. Neurological: Mental Status: She is alert and oriented to person, place, and time. ASSESSMENT/PLAN: 1. Lower resp. tract infection - ICD9: 519.8, ICD10: J22 No xray at time of exam Clinical concerns for pneumonia, will treat F/u for continued s/s -If you experience chest pain/shortness of breath go to ER - DOXYCYCLINE MONOHYDRATE 100 MG TABLET Ricardo Campuzano APRN.ELLIE documented in this encounterAvita Health System11-29-2023 History of Present illness Narrative* Leif Sahu APRN.ELLIE - 08/21/2023 7:17 PM EST Subjective HPI Nontoxic-appearing female presents urgent care chief complaint cough chest congestion. Duration of symptom 1 month. Associated symptoms cough chest congestion sinus pain. Patient was seen here beginning of July diagnosed with URI. Placed on prednisone taper. States symptoms did not improve cough has worsened. Cough has became productive. Has not used any OTC medications today. Has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 Substance Use Topics Alcohol use: No Drug use: No Prior to Admission medications as of 01/03/23 1058 Medication Sig Last Dose Taking L. acidophilus-L. rhamnosus 15 billion cell cap Take 1 capsule by mouth once daily. FLORAJEN WOMEN.If on antibiotic, take at least 1-2 hours before or after antibiotic. KEEP REFRIGERATED Taking Yes fluocinolone (SYNALAR) 0.01 % cream APPLY EXTERNALLY TO AFFECTED AREA TWICE DAILY FOR 2 WEEKS THEN EVERY DAY FOR 1 WEEK lactobacillus rhamnosus (CULTURELLE) 10 billion cell capsule Take 1 capsule by mouth once daily. levonorgestrel (MIRENA) 20 mcg/24 hours (6 yrs) 52 mg IUD 1 Each by INTRAUTERINE route one time only. Medication Comments documented by Christie Davis RN on 12/15/2015 at 1308. Not on ocella ALLERGIES No Known Allergies Objective PHYSICAL EXAM: General: alert and oriented and healthy appearance. Pertinent negatives noted - not distressed. Skin: normal color, no rash or lesions. HEENT: EOM intact and pupils equal round. Pertinent negatives noted - no carotid bruit. Cardiovascular: regular rate and rhythm, normal S1 and S2, no rub, murmurs, or gallop. Respiratory: normal breath sounds, no wheezes or crackles. No chest wall deformity or tenderness. Abdomen: soft. Pertinent negatives noted - not tender. Extremities: no deformity, no edema or tenderness, no joint swelling or clubbing. Neurological: normal cognition and motor skills. Gait normal. No weakness or sensory deficit. PAIN ASSESSMENT: VITALS: Resp 16 Ht 5' 7 (1.70m) Wt 166 lb (75.3kg) SpO2 97% LMP 12/31/2022 BMI 25.99 kg/(m^2). Diagnostic tests reviewed for today's visit: Lab Value Units Date High Low HB 13.9 g/dL 01/02/2023 15.5 11.5 HCT 41.2 % 01/02/2023 46.0 36.0 WBC 4.55 k/uL 01/02/2023 11.00 3.70 PLT 246 k/uL 01/02/2023 400 150 NA 138 mmol/L 01/02/2023 144 136 K 4.1 mmol/L 01/02/2023 5.1 3.7 GLUC 93 mg/dL 01/02/2023 99 74 BUN 9 mg/dL 01/02/2023 21 7 CREAT 0.75 mg/dL 01/02/2023 0.96 0.58 PTSEC No results within date range. INR No results within date range. APTT No results within date range. ALT No results within date range. AST No results within date range. TBILI No results within date range. TSH No results within date range. Lab Value Units Date High Low HCGQT No results within date range. UHCG No results within date range. HCG, BODY* No results within date range. Lab Value Units Date High Low ABORHD No results within date range. ABSCREEN No results within date range. No results found for: HBA1C No results found for this or any previous visit (from the past 8760 hour(s)). No results found for this or any previous visit (from the past 69272 hour(s)). Assessment Patient has the following medical conditions which may affect cynthia-operative course: Mild major depression (HCC) Assessment: no meds, denies concerning symptoms Smoker Assessment: reports smoking 1 ppd x 4 years Frequent UTI Assessment: denies current symptoms, last infection about one month ago History of scoliosis Assessment: was followed as child/teenager at [facility]. Reports chronic pain. Farrell Activity Status Index: METS: Run a short distance (8.00 METs) DASI Score: 8 Patient denies any chest pain or undue shortness of breath with the above physical activity. Clinical Frailty Scale: 2. Well STOP-Bang Score: Snores loudly Denies feeling tired, fatigued, or sleepy during the daytime Has not been observed to stop breathing or choking/gasping during sleep Denies having high blood pressure BMI less than or equal to 35 kg/m^2 Patient 50 years old or younger Does not have a large neck Non-male patient STOP-Bang Score: 1 [id number] Score: [id number] Score: 0 ASA Class: 2 ANESTHESIA FINDINGS: Intubation History: No history of difficult intubation Significant Anesthesia Considerations: potential postop nausea/vomiting Airway History: No history of difficult airway Congenital anomalies that can affect airway management: I - PHYSICAL EVALUATION AIRWAY Patient intubated: No. Tracheostomy tube not present Mallampati: I. TM distance: >3 FB. Neck ROM: full ROM without neurological symptoms. Mouth opening: adequate. Short neck: no. Thick neck: no Lip Bite Test: II DENTAL Dental findings: teeth intact. II - ANESTHESIA PLAN ASA Score: 2 Anesthetic Plan: other Anesthetic plan additional comments: *PACC/TCI - anesthesia choice. Beta Grace Monitoring Plan Post Procedure Analgesic Plan Prepared for Surgery: optimally prepared for surgery. CONSULTS: Patient does not require consults for optimization at this time Planned Anesthetic: other anesthesia choice The Following Tests/Procedures Have Been Initiated: No orders of the defined types were placed in this encounter. Instructions Given to Patient: Instructions located in the after visit summary. Patient given verbal and written preop instructions and voices comprehension and compliance. SIGNATURE: Junior Bella PA-C PATIENT NAME: Eb Hui DATE: January 02, 2023 TIME: 12:33 PM PAGER/CONTACT #: documented in this encounterAvita Health System03-08-2023 History of Present illness Narrative* Ricco Mullins MD - 11/28/2022 1:36 PM EST HEAD AND NECK SURGERY TELEPHONE VISIT Eb Hui has consented to this telephone encounter (audio-only). PERSONS PRESENT: patient CHIEF COMPLAINT/REASON: right pterygoid lesion HISTORY OF PRESENT ILLNESS: bE Hui is a 22 year old female who follows up for her right oropharyngeal lesion. Over time, she states that the symptomatology is moving gradually down the neck area. She does find that it waxes and wanes over time, but is not causing any difficulty with airway obstruction or difficulty withswallowing. HISTORY REVIEWED (electronic chart updated): PAST MEDICAL HISTORY Diagnosis Date Anemia during in third trimester 06/19/2019 Herpes 09/22/2020 Mental disorder depression/anxiety Migraine without aura 02/11/2015 Pre-eclampsia in third trimester 07/06/2019 Recurrent UTI was to be evaluated by urology Scoliosis Tension type headache 02/11/2015 PAST SURGICAL HISTORY Procedure Laterality Date TONSILLECTOMY & ADENOIDECTOMY <AGE 12 FAMILY HISTORY Problem Relation Age of Onset Diabetes Mother Heart Mother Hypertension Father Heart Father No Known Problems Brother Heart Maternal Grandmother No Known Problems Maternal Grandfather Diabetes Paternal Grandmother No Known Problems Paternal Grandfather Social History Tobacco Use Smoking status: Some Days Smokeless tobacco: Never Tobacco comments: 5 cigarettes daily Substance Use Topics Alcohol use: No Drug use: No Current Outpatient Medications Medication Sig fluocinolone (SYNALAR) 0.01 % cream APPLY EXTERNALLY TO AFFECTED AREA TWICE DAILY FOR 2 WEEKS THEN EVERY DAY FOR 1 WEEK L. acidophilus-L. rhamnosus 15 billion cell cap Take 1 capsule by mouth once daily. FLORAJEN WOMEN.If on antibiotic, take at least 1-2 hours before or after antibiotic. KEEP REFRIGERATED (Patient not taking: Reported on 11/28/2022) lactobacillus rhamnosus (CULTURELLE) 10 billion cell capsule Take 1 capsule by mouth once daily. levonorgestrel (MIRENA) 20 mcg/24 hours (6 yrs) 52 mg IUD 1 Each by INTRAUTERINE route one time only. No current facility-administered medications for this visit. ALLERGIES No Known Allergies DATA REVIEWED: Previous operative, pathology, labs, and radiological reports and/or images were reviewed and filedin the permanent chart. This is notable for review of the outside CT scan and MRIs. ASSESSMENT: Eb Hui is a 22 year old female who follows up for I had extensive conversations with our pediatric hotel staff member, as well as interventional radiologist. There is indeed a surgical option, which would include a all removal of the right pterygoid muscle. I warned the patient that this will li luisa lead to significant trismus postoperatively. She is also interested in any nonoperative opinions. We do have her set up with Dr. Aliya Mcdaniels tomorrow, for a conversation regarding different injectate's. Lastly, there is a real option of observation, and we will see how the patient wants to proceed after her consultation tomorrow. PLAN: Await neurosurgical opinion. I spent more than 21-40 minutes over the phone with the patient and over half the time was devoted to counseling and/or coordination of care. SIGNATURE: Ricco Mullins MD DATE of SERVICE: November 28, 2022 TIME of SERVICE: 1:36 PM documented in this encounterAvita Health System03-08-2023 Nurse Note* Soledad Mccarthy Ma - 11/28/2022 10:03 AM EST Tobacco Use: Yes Was smoking cessation packet given? Patient Declined Was a referral initiated?Patient declined. Spoke to Eb Hui, confirmed patient is registered on [employer] and is prepared for their appointment. Confirmed the patient has updated medications, allergies, and questionnaires via [employer]. Informed patient if there is an issue with the connection, provider will send the patient a secure link. If provider is running late, patient should remain connected to the visit. Patient verbalized understanding. documented in this encounterAvita Health System02-27-2023 Miscellaneous Notes* Telephone Encounter - Dawna Magallon RN - 11/19/2022 4:01 PM EST Attempted to call patient back but unable to leave message due to mailbox being full. documented in this encounterAvita Health System02-16-2023 Miscellaneous Notes* Telephone Encounter - Angelina Gloria RN - 11/08/2022 11:45 AM EST Patient notified. Will have HCG quant drawn. Patient's IUD was removed in [place] approximately 5 months ago. Angelina Gloria RN * Telephone Encounter - Shazia Jimenes MD - 11/08/2022 11:42 AM EST Agree with quant filed * Telephone Encounter - Angelina Gloria RN - 11/08/2022 9:35 AM EST LMP 10/11/22 Patient states she took x2 positive UPT and x2 negative. Not currently on control and not using any form of contraception. States she no longer has the IUD. No bleeding or pain. HCG quant orderpending if appropriate. Patient is agreeable to checking blood hormone level. Angelina Gloria RN documented in this encounterAvita Health System05-27-2022 Miscellaneous Notes* Telephone Encounter - Shira Travis RN - 02/16/2022 3:38 PM EDT Patient notified and voiced understanding of information and instructions below. Shira Travis RN * Telephone Encounter - Nella Hood MD - 02/16/2022 3:26 PM EDT She had had multiple infections in and recently treated for chlamydia. I will not order antibiotic without her being seen in office. Would recommend OTC AZO dual relief (yeast/odor) take 3 tablets with odor and one tablet daily to maintain pH. She can go to urgent care over weekend if she has time to be seen and they can swab. * Telephone Encounter - Camille Worthington LPN - 02/16/2022 3:16 PM EDT Patient called c/o strong vaginal odor X 2 days. Denies vaginal itching/burning, or increased discharge. Patient states that she gets BV frequently, last treated for BV 06/2021. Patient stated thattiffani is not able to come in for an appointment d/t work schedule and is requesting a Rx for flagyl. documented in this encounterAvita Health System04-18-2022 Miscellaneous Notes* Telephone Encounter - Angelina Gloria RN - 01/08/2022 10:32 AM EDT Received message from pharmacy regarding SYNALAR. Pharmacy comment: we are unable to get this medication from our suppliers. would you like to change it? documented in this encounterAvita Health System04-13-2022 Miscellaneous Notes* Telephone Encounter - Angelina Gloria RN - 01/03/2022 12:42 PM EDT Patient notified. Voiced understanding. Will call back to schedule her 3 month follow-up. Health Dept form faxed. Angelina Gloria RN * Telephone Encounter - Jolanta Day RN - 01/03/2022 10:00 AM EDT RR stopped in office now and filed medication. Attempted to call patient, but mailbox is full. [employer] message sent to call office. Health department form by RR phone nurse. Jolanta Day RN * Telephone Encounter - Jolanta Day RN - 01/03/2022 9:59 AM EDT ----- Message from Roberta Guthrie MD sent at 01/03/2022 9:52 AM EDT ----- Make sure she gets med. Partner(s) need treated. F/unit(s) 3 months. Roberta Guthrie MD * Telephone Encounter - Jolanta Day RN - 01/03/2022 8:10 AM EDT Patient saw RR yesterday. Positive for Chlamydia. Please review and file medication in RR's absence. Jolanta Day RN documented in this encounterAvita Health System04-12-2022 History of Present illness Narrative* Roberta Guthrie MD - 01/02/2022 12:08 PM EDT Eb Hui is a 21 year old female who presents for vaginal pruritis and irritation for 2 week(s). Not currently w/ a partner but was a couple of weeks ago. Vaginal discharge: moderate amount and clear/white, no changes. Itching: yes, last week Fever/chills: No Abdominal pain: No Bladder: Negative for dysuria or frequency Bowel: No blood in stool, pain with BM, tarry stool, persistent diarrhea or constipation Any new sexual partners or concern for STD exposure: was w/ previous partner and some concerns there Any history of STDs: chlamydia Does your partner have any new complaints: n/a Are you currently taking any medications to treat vaginitis: No- took diflucant last week Do you use feminine sprays, douches or deodorants: No Menstrual cycle: n/a has IUD Contraception: IUD Past medical, surgical, social history, medications and allergies reviewed and updated. OBJECTIVE: LMP 06/13/2021 GENERAL: Well developed, well nourished in no apparent distress PELVIC: normal Bartholin's glands, urethra, White [place]'s glands, no vulvar lesions, no cervical lesions,good vaginal support, physiologic discharge present, normal appearing perineal body and perianal region, erythema on vulva, lichenification of skin, no hyper or hypopigmentation, no ulcers, no lesions, no induration, no discrete lesions BIMANUAL: uterus normal size, shape and consistency, no adnexal masses and non-tender. 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 Steriod taper, avoid irritants. STI testing done. 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 had a lot of quesitons on this. No outbreaks that she knows of. D/w her there are false + and false neg. tests but retesting won't really change much clinically. D/w her STI prevention and questions answered. No orders found for this visit on 01/02/22. Roberta Guthrie MD documented in this encounterAvita Health System04-20-2021 History of Present illness Narrative* Sanjana Panda (Rt), Tech - 01/10/2021 2:30 PM EDT Radiology Service Progress Note PATIENT NAME: Eb Hui DATE OF SERVICE: January 10, 2021 TIME: 2:41 PM PATIENT IDENTITY VERIFICATION COMPLETED USING TWO (2) IDENTIFIERS: Name and Date of confirmedby patient verbally. FALL SCREENING: Has the patient had 2 falls in the last year or 1 fall with injury or currently using an Ambulatory Assistive Device (Walker, Cane, Wheelchair, Crutches, etc.)? No PATIENT GENDER DATA: Female. status: : No status: NO. PATIENT RELEVANT IMPLANT DATA REVIEWED: Not Applicable RADIOLOGY DEPARTMENT: General X-ray: Exam(s) Completed: Chest X-Ray PERIPHERAL IV DATA: Not applicable SIGNED BY: RT Silver January 10, 2021 2:41 PM documented in this encounterAvita Health System12-31-2020 History of Past illness Narrative* Problem Noted Date Resolved Date Herpes 09/22/2020 12/19/2020 Overview: No known outbreak . IgM and IgG positive. 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 Severe preeclampsia, third trimester 07/08/2019 08/21/2019 Overview: - Features being RUQ pain - BPs mild to severe on admission - CBC/CMP wnl on admission - Magnesium started at [facility], currently running 2g/hr - Continue to monitor Encounter for induction of labor 07/08/2019 08/21/2019 Overview: - GBS neg - s/p cytotec x3, CC - Pitocin per protocol - AROM @ 0315 for clear fluid - Epi in -IUPC in place Prematurity 07/08/2019 08/21/2019 Overview: - s/p BMZ 07/06 and 07/07 - Growth at 32w6d 4lb 9oz 42%ile - NICU aware, plan to deliver in the OR Pneumonia affecting 07/08/2019 Overview: - Productive cough with abnormal CXR findings - Amoxicillin and Azithromycin x5 days PICC (peripherally inserted central catheter) in place 07/08/2019 08/21/2019 Overview: - Placed for difficulty IV access Pre-eclampsia in third trimester 07/06/2019 08/21/2019 Overview: dx at 32 w 4 d Anemia during in third trimester 06/1908/21/2019 Overview: - Taking PO iron intermittently - Admission hgb 9.1 BV (bacterial vaginosis) 01/27/2019 019 Overview: 02/05/19-Flagyl 500mg PO BID x 7 days for BV treatment. Petty Rubalcava APRN.CNYessenia January 27, 2019 Treat next appointment, treated for yeast on 01/26/19. Roberta Guthrie MD Quit smoking 01/06/2019 08/21/2019 Overview: 01/06/2019Pt recently quit smoking 2 days ago. Discussed risks of smoking during and advised pt to continue not smokingTKRN Nausea and vomiting in 01/06/2019 07/11/2019 Overview: 01/06/2019Patient is complaining of nausea in . Denies any vomiting. Dietary recommendations discussed. Recommended Vitamin B6. Advised patient to call/come in if she is unable to keep any food or fluids down in a 24-hour period.TKRN History of recurrent UTIs 01/06/20192018 Overview: 01/06/2019 Pt has a history of recurrent UTI. Discussed importance of reporting the onset of any symptoms of a UTI should it occur during . She was seen by Surekha maciel and she recommended patient see a urologist. Patient no showed urology appointment x2. Advised patient to reschedule appt with Urologist after discussing importance of keeping appointment. TKRN Family history of congenital heart defect 201808/21/2019 Overview: 01/06/2018 FOB's uncle born with hole in heart. Corrective surgery was done. TKRN Endometrial polyp 09/05/2017 01/27/2019 Adenomyosis 09/05/2017 01/27/2019 Chronic UTI (urinary tract infection) 06/26/2017 08/21/2019 Migraine without aura 02/11/2015 06/26/2017 Tension type headache 02/11/2015 06/26/2017 Backache, unspecified 01/06/2014 06/26/2017 Internal derangement of right knee 08/05/2012 06/07/2015 documented as of this encounter (statuses as of 01/02/2022) [facility]-2020 History of Past illness Narrative* Problem Noted Date Resolved Date Herpes 09/22/2020 12/19/2020 Overview: No known outbreak . IgM and IgG positive. 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 Severe preeclampsia, third trimester 07/08/2019 08/21/2019 Overview: - Features being RUQ pain - BPs mild to severe on admission - CBC/CMP wnl on admission - Magnesium started at [facility], currently running 2g/hr - Continue to monitor Encounter for induction of labor 07/08/2019 08/21/2019 Overview: - GBS neg - s/p cytotec x3, CC - Pitocin per protocol - AROM @ 0315 for clear fluid - Epi in -IUPC in place Prematurity 07/08/2019 08/21/2019 Overview: - s/p BMZ 07/06 and 07/07 - Growth at 32w6d 4lb 9oz 42%ile - NICU aware, plan to deliver in the OR Pneumonia affecting 07/08/2019 Overview: - Productive cough with abnormal CXR findings - Amoxicillin and Azithromycin x5 days PICC (peripherally inserted central catheter) in place 07/08/2019 08/21/2019 Overview: - Placed for difficulty IV access Pre-eclampsia in third trimester 07/06/2019 08/21/2019 Overview: dx at 32 w 4 d Anemia during in third trimester 06/1908/21/2019 Overview: - Taking PO iron intermittently - Admission hgb 9.1 BV (bacterial vaginosis) 01/27/2019 019 Overview: 02/05/19-Flagyl 500mg PO BID x 7 days for BV treatment. Petty Rubalcava APRN.CNM January 27, 2019 Treat next appointment, treated for yeast on 01/26/19. Roberta Guthrie MD Quit smoking 01/06/2019 08/21/2019 Overview: 01/06/2019Pt recently quit smoking 2 days ago. Discussed risks of smoking during and advised pt to continue not smokingTKRN Nausea and vomiting in 01/06/2019 07/11/2019 Overview: 01/06/2019Patient is complaining of nausea in . Denies any vomiting. Dietary recommendations discussed. Recommended Vitamin B6. Advised patient to call/come in if she is unable to keep any food or fluids down in a 24-hour period.TKRN History of recurrent UTIs 01/06/20192018 Overview: 01/06/2019 Pt has a history of recurrent UTI. Discussed importance of reporting the onset of any symptoms of a UTI should it occur during . She was seen by Surekha maciel and she recommended patient see a urologist. Patient no showed urology appointment x2. Advised patient to reschedule appt with Urologist after discussing importance of keeping appointment. TKRN Family history of congenital heart defect 201808/21/2019 Overview: 01/06/2018 FOB's uncle born with hole in heart. Corrective surgery was done. TKRN Endometrial polyp 09/05/2017 01/27/2019 Adenomyosis 09/05/2017 01/27/2019 Chronic UTI (urinary tract infection) 06/26/2017 08/21/2019 Migraine without aura 02/11/2015 06/26/2017 Tension type headache 02/11/2015 06/26/2017 Backache, unspecified 01/06/2014 06/26/2017 Internal derangement of right knee 08/05/2012 06/07/2015 documented as of this encounter (statuses as of 01/03/2022) [facility] History of Past illness Narrative* Problem Noted Date Resolved Date Herpes 09/22/2020 12/19/2020 Overview: No known outbreak . IgM and IgG positive. 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 Severe preeclampsia, third trimester 07/08/2019 08/21/2019 Overview: - Features being RUQ pain - BPs mild to severe on admission - CBC/CMP wnl on admission - Magnesium started at [facility], currently running 2g/hr - Continue to monitor Encounter for induction of labor 07/08/2019 08/21/2019 Overview: - GBS neg - s/p cytotec x3, CC - Pitocin per protocol - AROM @ 0315 for clear fluid - Epi in -IUPC in place Prematurity 07/08/2019 08/21/2019 Overview: - s/p BMZ 07/06 and 07/07 - Growth at 32w6d 4lb 9oz 42%ile - NICU aware, plan to deliver in the OR Pneumonia affecting 07/08/2019 Overview: - Productive cough with abnormal CXR findings - Amoxicillin and Azithromycin x5 days PICC (peripherally inserted central catheter) in place 07/08/2019 08/21/2019 Overview: - Placed for difficulty IV access Pre-eclampsia in third trimester 07/06/2019 08/21/2019 Overview: dx at 32 w 4 d Anemia during in third trimester 06/1908/21/2019 Overview: - Taking PO iron intermittently - Admission hgb 9.1 BV (bacterial vaginosis) 01/27/2019 019 Overview: 02/05/19-Flagyl 500mg PO BID x 7 days for BV treatment. Petty Rubalcava APRN.CNM January 27, 2019 Treat next appointment, treated for yeast on 01/26/19. Roberta Guthrie MD Quit smoking 01/06/2019 08/21/2019 Overview: 01/06/2019Pt recently quit smoking 2 days ago. Discussed risks of smoking during and advised pt to continue not smokingTKRN Nausea and vomiting in 01/06/2019 07/11/2019 Overview: 01/06/2019Patient is complaining of nausea in . Denies any vomiting. Dietary recommendations discussed. Recommended Vitamin B6. Advised patient to call/come in if she is unable to keep any food or fluids down in a 24-hour period.TKRN History of recurrent UTIs 01/06/20192018 Overview: 01/06/2019 Pt has a history of recurrent UTI. Discussed importance of reporting the onset of any symptoms of a UTI should it occur during . She was seen by Surekha maciel and she recommended patient see a urologist. Patient no showed urology appointment x2. Advised patient to reschedule appt with Urologist after discussing importance of keeping appointment. TKRN Family history of congenital heart defect 201808/21/2019 Overview: 01/06/2018 FOB's uncle born with hole in heart. Corrective surgery was done. TKRN Endometrial polyp 09/05/2017 01/27/2019 Adenomyosis 09/05/2017 01/27/2019 Chronic UTI (urinary tract infection) 06/26/2017 08/21/2019 Migraine without aura 02/11/2015 06/26/2017 Tension type headache 02/11/2015 06/26/2017 Backache, unspecified 01/06/2014 06/26/2017 Internal derangement of right knee 08/05/2012 06/07/2015 documented as of this encounter (statuses as of 01/10/2022) [facility] History of Past illness Narrative* Problem Noted Date Resolved Date Herpes 09/22/2020 12/19/2020 Overview: No known outbreak . IgM and IgG positive. 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 Severe preeclampsia, third trimester 07/08/2019 08/21/2019 Overview: - Features being RUQ pain - BPs mild to severe on admission - CBC/CMP wnl on admission - Magnesium started at [facility], currently running 2g/hr - Continue to monitor Encounter for induction of labor 07/08/2019 08/21/2019 Overview: - GBS neg - s/p cytotec x3, CC - Pitocin per protocol - AROM @ 0315 for clear fluid - Epi in -IUPC in place Prematurity 07/08/2019 08/21/2019 Overview: - s/p BMZ 07/06 and 07/07 - Growth at 32w6d 4lb 9oz 42%ile - NICU aware, plan to deliver in the OR Pneumonia affecting 07/08/2019 Overview: - Productive cough with abnormal CXR findings - Amoxicillin and Azithromycin x5 days PICC (peripherally inserted central catheter) in place 07/08/2019 08/21/2019 Overview: - Placed for difficulty IV access Pre-eclampsia in third trimester 07/06/2019 08/21/2019 Overview: dx at 32 w 4 d Anemia during in third trimester 06/1908/21/2019 Overview: - Taking PO iron intermittently - Admission hgb 9.1 BV (bacterial vaginosis) 01/27/201907/11/ 019 Overview: 02/05/19-Flagyl 500mg PO BID x 7 days for BV treatment. Petty Rubalcava APRN.CNM January 27, 2019 Treat next appointment, treated for yeast on 01/26/19. Roberta Guthrie MD Quit smoking 01/06/2019 08/21/2019 Overview: 01/06/2019Pt recently quit smoking 2 days ago. Discussed risks of smoking during and advised pt to continue not smokingTKRN Nausea and vomiting in 01/06/2019 07/11/2019 Overview: 01/06/2019Patient is complaining of nausea in . Denies any vomiting. Dietary recommendations discussed. Recommended Vitamin B6. Advised patient to call/come in if she is unable to keep any food or fluids down in a 24-hour period.TKRN History of recurrent UTIs 01/06/20192018 Overview: 01/06/2019 Pt has a history of recurrent UTI. Discussed importance of reporting the onset of any symptoms of a UTI should it occur during . She was seen by Surekha maciel and she recommended patient see a urologist. Patient no showed urology appointment x2. Advised patient to reschedule appt with Urologist after discussing importance of keeping appointment. TKRN Family history of congenital heart defect 201808/21/2019 Overview: 01/06/2018 FOB's uncle born with hole in heart. Corrective surgery was done. TKRN Endometrial polyp 09/05/2017 01/27/2019 Adenomyosis 09/05/2017 01/27/2019 Chronic UTI (urinary tract infection) 06/26/2017 08/21/2019 Migraine without aura 02/11/2015 06/26/2017 Tension type headache 02/11/2015 06/26/2017 Backache, unspecified 01/06/2014 06/26/2017 Internal derangement of right knee 08/05/2012 06/07/2015 documented as of this encounter (statuses as of 01/10/2022) [facility] History of Past illness Narrative* Problem Noted Date Resolved Date Herpes 09/22/2020 12/19/2020 Overview: No known outbreak . IgM and IgG positive. Lona Waters, RAMÓN.[employer] Severe preeclampsia, third trimester 07/08/2019 08/21/2019 Overview: - Features being RUQ pain - BPs mild to severe on admission - CBC/CMP wnl on admission - Magnesium started at [facility], currently running 2g/hr - Continue to monitor Encounter for induction of labor 07/08/2019 08/21/2019 Overview: - GBS neg - s/p cytotec x3, CC - Pitocin per protocol - AROM @ 0315 for clear fluid - Epi in -IUPC in place Prematurity 07/08/2019 08/21/2019 Overview: - s/p BMZ 07/06 and 07/07 - Growth at 32w6d 4lb 9oz 42%ile - NICU aware, plan to deliver in the OR Pneumonia affecting 07/08/2019 Overview: - Productive cough with abnormal CXR findings - Amoxicillin and Azithromycin x5 days PICC (peripherally inserted central catheter) in place 07/08/2019 08/21/2019 Overview: - Placed for difficulty IV access Pre-eclampsia in third trimester 07/06/2019 08/21/2019 Overview: dx at 32 w 4 d Anemia during in third trimester 06/1908/21/2019 Overview: - Taking PO iron intermittently - Admission hgb 9.1 BV (bacterial vaginosis) 01/27/2019 019 Overview: 02/05/19-Flagyl 500mg PO BID x 7 days for BV treatment. Petty Rubalcava APRN.CNM January 27, 2019 Treat next appointment, treated for yeast on 01/26/19. Roberta Guthrie MD Quit smoking 01/06/2019 08/21/2019 Overview: 01/06/2019Pt recently quit smoking 2 days ago. Discussed risks of smoking during and advised pt to continue not smokingTKRN Nausea and vomiting in 01/06/2019 07/11/2019 Overview: 01/06/2019Patient is complaining of nausea in . Denies any vomiting. Dietary recommendations discussed. Recommended Vitamin B6. Advised patient to call/come in if she is unable to keep any food or fluids down in a 24-hour period.TKRN History of recurrent UTIs 01/06/20192018 Overview: 01/06/2019 Pt has a history of recurrent UTI. Discussed importance of reporting the onset of any symptoms of a UTI should it occur during . She was seen by Surekha maciel and she recommended patient see a urologist. Patient no showed urology appointment x2. Advised patient to reschedule appt with Urologist after discussing importance of keeping appointment. TKRN Family history of congenital heart defect 201808/21/2019 Overview: 01/06/2018 FOB's uncle born with hole in heart. Corrective surgery was done. TKRN Endometrial polyp 09/05/2017 01/27/2019 Adenomyosis 09/05/2017 01/27/2019 Chronic UTI (urinary tract infection) 06/26/2017 08/21/2019 Migraine without aura 02/11/2015 06/26/2017 Tension type headache 02/11/2015 06/26/2017 Backache, unspecified 01/06/2014 06/26/2017 Internal derangement of right knee 08/05/2012 06/07/2015 documented as of this encounter (statuses as of 02/16/2022) [facility] History of Past illness Narrative* Problem Noted Date Resolved Date Herpes 09/22/2020 12/19/2020 Overview: No known outbreak . IgM and IgG positive. 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 Severe preeclampsia, third trimester 07/08/2019 08/21/2019 Overview: - Features being RUQ pain - BPs mild to severe on admission - CBC/CMP wnl on admission - Magnesium started at [facility], currently running 2g/hr - Continue to monitor Encounter for induction of labor 07/08/2019 08/21/2019 Overview: - GBS neg - s/p cytotec x3, CC - Pitocin per protocol - AROM @ 0315 for clear fluid - Epi in -IUPC in place Prematurity 07/08/2019 08/21/2019 Overview: - s/p BMZ 07/06 and 07/07 - Growth at 32w6d 4lb 9oz 42%ile - NICU aware, plan to deliver in the OR Pneumonia affecting 07/08/2019 Overview: - Productive cough with abnormal CXR findings - Amoxicillin and Azithromycin x5 days PICC (peripherally inserted central catheter) in place 07/08/2019 08/21/2019 Overview: - Placed for difficulty IV access Pre-eclampsia in third trimester 07/06/2019 08/21/2019 Overview: dx at 32 w 4 d Anemia during in third trimester 06/1908/21/2019 Overview: - Taking PO iron intermittently - Admission hgb 9.1 BV (bacterial vaginosis) 01/27/2019 019 Overview: 02/05/19-Flagyl 500mg PO BID x 7 days for BV treatment. Petty Rubalcava APRN.CNM January 27, 2019 Treat next appointment, treated for yeast on 01/26/19. Roberta Guthrie MD Quit smoking 01/06/2019 08/21/2019 Overview: 01/06/2019Pt recently quit smoking 2 days ago. Discussed risks of smoking during and advised pt to continue not smokingTKRN Nausea and vomiting in 01/06/2019 07/11/2019 Overview: 01/06/2019Patient is complaining of nausea in . Denies any vomiting. Dietary recommendations discussed. Recommended Vitamin B6. Advised patient to call/come in if she is unable to keep any food or fluids down in a 24-hour period.TKRN History of recurrent UTIs 01/06/20192018 Overview: 01/06/2019 Pt has a history of recurrent UTI. Discussed importance of reporting the onset of any symptoms of a UTI should it occur during . She was seen by Surekha maciel and she recommended patient see a urologist. Patient no showed urology appointment x2. Advised patient to reschedule appt with Urologist after discussing importance of keeping appointment. TKRN Family history of congenital heart defect 201808/21/2019 Overview: 01/06/2018 FOB's uncle born with hole in heart. Corrective surgery was done. TKRN Endometrial polyp 09/05/2017 01/27/2019 Adenomyosis 09/05/2017 01/27/2019 Chronic UTI (urinary tract infection) 06/26/2017 08/21/2019 Migraine without aura 02/11/2015 06/26/2017 Tension type headache 02/11/2015 06/26/2017 Backache, unspecified 01/06/2014 06/26/2017 Internal derangement of right knee 08/05/2012 06/07/2015 documented as of this encounter (statuses as of 11/08/2022) [facility] History of Past illness Narrative* Problem Noted Date Resolved Date Herpes 09/22/2020 12/19/2020 Overview: No known outbreak . IgM and IgG positive. oLna Waters APRN.[employer] Severe preeclampsia, third trimester 07/08/2019 08/21/2019 Overview: - Features being RUQ pain - BPs mild to severe on admission - CBC/CMP wnl on admission - Magnesium started at [facility], currently running 2g/hr - Continue to monitor Encounter for induction of labor 07/08/2019 08/21/2019 Overview: - GBS neg - s/p cytotec x3, CC - Pitocin per protocol - AROM @ 0315 for clear fluid - Epi in -IUPC in place Prematurity 07/08/2019 08/21/2019 Overview: - s/p BMZ 07/06 and 07/07 - Growth at 32w6d 4lb 9oz 42%ile - NICU aware, plan to deliver in the OR Pneumonia affecting 07/08/2019 Overview: - Productive cough with abnormal CXR findings - Amoxicillin and Azithromycin x5 days PICC (peripherally inserted central catheter) in place 07/08/2019 08/21/2019 Overview: - Placed for difficulty IV access Pre-eclampsia in third trimester 07/06/2019 08/21/2019 Overview: dx at 32 w 4 d Anemia during in third trimester 06/1908/21/2019 Overview: - Taking PO iron intermittently - Admission hgb 9.1 BV (bacterial vaginosis) 01/27/2019 019 Overview: 02/05/19-Flagyl 500mg PO BID x 7 days for BV treatment. Petty Rubalcava APRN.CNM January 27, 2019 Treat next appointment, treated for yeast on 01/26/19. Roberta Guthrie MD Quit smoking 01/06/2019 08/21/2019 Overview: 01/06/2019Pt recently quit smoking 2 days ago. Discussed risks of smoking during and advised pt to continue not smokingTKRN Nausea and vomiting in 01/06/2019 07/11/2019 Overview: 01/06/2019Patient is complaining of nausea in . Denies any vomiting. Dietary recommendations discussed. Recommended Vitamin B6. Advised patient to call/come in if she is unable to keep any food or fluids down in a 24-hour period.TKRN History of recurrent UTIs 01/06/20192018 Overview: 01/06/2019 Pt has a history of recurrent UTI. Discussed importance of reporting the onset of any symptoms of a UTI should it occur during . She was seen by Surekha maciel and she recommended patient see a urologist. Patient no showed urology appointment x2. Advised patient to reschedule appt with Urologist after discussing importance of keeping appointment. TKRN Family history of congenital heart defect 201808/21/2019 Overview: 01/06/2018 FOB's uncle born with hole in heart. Corrective surgery was done. TKRN Endometrial polyp 09/05/2017 01/27/2019 Adenomyosis 09/05/2017 01/27/2019 Chronic UTI (urinary tract infection) 06/26/2017 08/21/2019 Migraine without aura 02/11/2015 06/26/2017 Tension type headache 02/11/2015 06/26/2017 Backache, unspecified 01/06/2014 06/26/2017 Internal derangement of right knee 08/05/2012 06/07/2015 documented as of this encounter (statuses as of 11/28/2022) [facility] History of Past illness Narrative* Problem Noted Date Resolved Date Herpes 09/22/2020 12/19/2020 Overview: No known outbreak . IgM and IgG positive. 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 Severe preeclampsia, third trimester 07/08/2019 08/21/2019 Overview: - Features being RUQ pain - BPs mild to severe on admission - CBC/CMP wnl on admission - Magnesium started at [facility], currently running 2g/hr - Continue to monitor Encounter for induction of labor 07/08/2019 08/21/2019 Overview: - GBS neg - s/p cytotec x3, CC - Pitocin per protocol - AROM @ 0315 for clear fluid - Epi in -IUPC in place Prematurity 07/08/2019 08/21/2019 Overview: - s/p BMZ 07/06 and 07/07 - Growth at 32w6d 4lb 9oz 42%ile - NICU aware, plan to deliver in the OR Pneumonia affecting 07/08/2019 Overview: - Productive cough with abnormal CXR findings - Amoxicillin and Azithromycin x5 days PICC (peripherally inserted central catheter) in place 07/08/2019 08/21/2019 Overview: - Placed for difficulty IV access Pre-eclampsia in third trimester 07/06/2019 08/21/2019 Overview: dx at 32 w 4 d Anemia during in third trimester 06/1908/21/2019 Overview: - Taking PO iron intermittently - Admission hgb 9.1 BV (bacterial vaginosis) 01/27/2019 019 Overview: 02/05/19-Flagyl 500mg PO BID x 7 days for BV treatment. Petty Rubalcava APRN.[facility] January 27, 2019 Treat next appointment, treated for yeast on 01/26/19. Roberta Guthrie MD Quit smoking 01/06/2019 08/21/2019 Overview: 01/06/2019Pt recently quit smoking 2 days ago. Discussed risks of smoking during and advised pt to continue not smokingTKRN Nausea and vomiting in 01/06/2019 07/11/2019 Overview: 01/06/2019Patient is complaining of nausea in . Denies any vomiting. Dietary recommendations discussed. Recommended Vitamin B6. Advised patient to call/come in if she is unable to keep any food or fluids down in a 24-hour period.TKRN History of recurrent UTIs 01/06/20192018 Overview: 01/06/2019 Pt has a history of recurrent UTI. Discussed importance of reporting the onset of any symptoms of a UTI should it occur during . She was seen by Surekha maciel and she recommended patient see a urologist. Patient no showed urology appointment x2. Advised patient to reschedule appt with Urologist after discussing importance of keeping appointment. TKRN Family history of congenital heart defect 201808/21/2019 Overview: 01/06/2018 FOB's uncle born with hole in heart. Corrective surgery was done. TKRN Endometrial polyp 09/05/2017 01/27/2019 Adenomyosis 09/05/2017 01/27/2019 Chronic UTI (urinary tract infection) 06/26/2017 08/21/2019 Migraine without aura 02/11/2015 06/26/2017 Tension type headache 02/11/2015 06/26/2017 Backache, unspecified 01/06/2014 06/26/2017 Internal derangement of right knee 08/05/2012 06/07/2015 documented as of this encounter (statuses as of 12/06/2022) [facility] History of Past illness Narrative* Problem Noted Date Resolved Date Herpes 09/22/2020 12/19/2020 Overview: No known outbreak . IgM and IgG positive. Lona Waters, RAMÓN.[employer] Severe preeclampsia, third trimester 07/08/2019 08/21/2019 Overview: - Features being RUQ pain - BPs mild to severe on admission - CBC/CMP wnl on admission - Magnesium started at [facility], currently running 2g/hr - Continue to monitor Encounter for induction of labor 07/08/2019 08/21/2019 Overview: - GBS neg - s/p cytotec x3, CC - Pitocin per protocol - AROM @ 0315 for clear fluid - Epi in -IUPC in place Prematurity 07/08/2019 08/21/2019 Overview: - s/p BMZ 07/06 and 07/07 - Growth at 32w6d 4lb 9oz 42%ile - NICU aware, plan to deliver in the OR Pneumonia affecting 07/08/2019 Overview: - Productive cough with abnormal CXR findings - Amoxicillin and Azithromycin x5 days PICC (peripherally inserted central catheter) in place 07/08/2019 08/21/2019 Overview: - Placed for difficulty IV access Pre-eclampsia in third trimester 07/06/2019 08/21/2019 Overview: dx at 32 w 4 d Anemia during in third trimester 06/1908/21/2019 Overview: - Taking PO iron intermittently - Admission hgb 9.1 BV (bacterial vaginosis) 01/27/2019 019 Overview: 02/05/19-Flagyl 500mg PO BID x 7 days for BV treatment. Petty Rubalcava APRN.CNYessenia January 27, 2019 Treat next appointment, treated for yeast on 01/26/19. Roberta Guthrie MD Quit smoking 01/06/2019 08/21/2019 Overview: 01/06/2019Pt recently quit smoking 2 days ago. Discussed risks of smoking during and advised pt to continue not smokingTKRN Nausea and vomiting in 01/06/2019 07/11/2019 Overview: 01/06/2019Patient is complaining of nausea in . Denies any vomiting. Dietary recommendations discussed. Recommended Vitamin B6. Advised patient to call/come in if she is unable to keep any food or fluids down in a 24-hour period.TKRN History of recurrent UTIs 01/06/20192018 Overview: 01/06/2019 Pt has a history of recurrent UTI. Discussed importance of reporting the onset of any symptoms of a UTI should it occur during . She was seen by Surekha maciel and she recommended patient see a urologist. Patient no showed urology appointment x2. Advised patient to reschedule appt with Urologist after discussing importance of keeping appointment. TKRN Family history of congenital heart defect 201808/21/2019 Overview: 01/06/2018 FOB's uncle born with hole in heart. Corrective surgery was done. TKRN Endometrial polyp 09/05/2017 01/27/2019 Adenomyosis 09/05/2017 01/27/2019 Chronic UTI (urinary tract infection) 06/26/2017 08/21/2019 Migraine without aura 02/11/2015 06/26/2017 Tension type headache 02/11/2015 06/26/2017 Backache, unspecified 01/06/2014 06/26/2017 Internal derangement of right knee 08/05/2012 06/07/2015 documented as of this encounter (statuses as of 12/19/2022) [facility]12-[facility]-2020 History of Past illness Narrative* Problem Noted Date Resolved Date Herpes 09/22/2020 12/19/2020 Overview: No known outbreak . IgM and IgG positive. 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 Severe preeclampsia, third trimester 07/08/2019 08/21/2019 Overview: - Features being RUQ pain - BPs mild to severe on admission - CBC/CMP wnl on admission - Magnesium started at [facility], currently running 2g/hr - Continue to monitor Encounter for induction of labor 07/08/2019 08/21/2019 Overview: - GBS neg - s/p cytotec x3, CC - Pitocin per protocol - AROM @ 0315 for clear fluid - Epi in -IUPC in place Prematurity 07/08/2019 08/21/2019 Overview: - s/p BMZ 07/06 and 07/07 - Growth at 32w6d 4lb 9oz 42%ile - NICU aware, plan to deliver in the OR Pneumonia affecting 07/08/2019 Overview: - Productive cough with abnormal CXR findings - Amoxicillin and Azithromycin x5 days PICC (peripherally inserted central catheter) in place 07/08/2019 08/21/2019 Overview: - Placed for difficulty IV access Pre-eclampsia in third trimester 07/06/2019 08/21/2019 Overview: dx at 32 w 4 d Anemia during in third trimester 06/1908/21/2019 Overview: - Taking PO iron intermittently - Admission hgb 9.1 BV (bacterial vaginosis) 01/27/2019 019 Overview: 02/05/19-Flagyl 500mg PO BID x 7 days for BV treatment. Petty Rubalcava APRN.CNM January 27, 2019 Treat next appointment, treated for yeast on 01/26/19. Roberta Guthrie MD Quit smoking 01/06/2019 08/21/2019 Overview: 01/06/2019Pt recently quit smoking 2 days ago. Discussed risks of smoking during and advised pt to continue not smokingTKRN Nausea and vomiting in 01/06/2019 07/11/2019 Overview: 01/06/2019Patient is complaining of nausea in . Denies any vomiting. Dietary recommendations discussed. Recommended Vitamin B6. Advised patient to call/come in if she is unable to keep any food or fluids down in a 24-hour period.TKRN History of recurrent UTIs 01/06/20192018 Overview: 01/06/2019 Pt has a history of recurrent UTI. Discussed importance of reporting the onset of any symptoms of a UTI should it occur during . She was seen by Surekha maciel and she recommended patient see a urologist. Patient no showed urology appointment x2. Advised patient to reschedule appt with Urologist after discussing importance of keeping appointment. TKRN Family history of congenital heart defect 201808/21/2019 Overview: 01/06/2018 FOB's uncle born with hole in heart. Corrective surgery was done. TKRN Endometrial polyp 09/05/2017 01/27/2019 Adenomyosis 09/05/2017 01/27/2019 Migraine without aura 02/11/2015 06/26/2017 Tension type headache 02/11/2015 06/26/2017 Backache, unspecified 01/06/2014 06/26/2017 Internal derangement of right knee 08/05/2012 06/07/2015 documented as of this encounter (statuses as of 01/04/2023) [facility] History of Past illness Narrative* Problem Noted Date Resolved Date Herpes 09/22/2020 12/19/2020 Overview: No known outbreak . IgM and IgG positive. 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 Severe preeclampsia, third trimester 07/08/2019 08/21/2019 Overview: - Features being RUQ pain - BPs mild to severe on admission - CBC/CMP wnl on admission - Magnesium started at [facility], currently running 2g/hr - Continue to monitor Encounter for induction of labor 07/08/2019 08/21/2019 Overview: - GBS neg - s/p cytotec x3, CC - Pitocin per protocol - AROM @ 0315 for clear fluid - Epi in -IUPC in place Prematurity 07/08/2019 08/21/2019 Overview: - s/p BMZ 07/06 and 07/07 - Growth at 32w6d 4lb 9oz 42%ile - NICU aware, plan to deliver in the OR Pneumonia affecting 07/08/2019 Overview: - Productive cough with abnormal CXR findings - Amoxicillin and Azithromycin x5 days PICC (peripherally inserted central catheter) in place 07/08/2019 08/21/2019 Overview: - Placed for difficulty IV access Pre-eclampsia in third trimester 07/06/2019 08/21/2019 Overview: dx at 32 w 4 d Anemia during in third trimester 06/1908/21/2019 Overview: - Taking PO iron intermittently - Admission hgb 9.1 BV (bacterial vaginosis) 01/27/201907/11/ 019 Overview: 02/05/19-Flagyl 500mg PO BID x 7 days for BV treatment. Petty Rubalcava APRN.CNM January 27, 2019 Treat next appointment, treated for yeast on 01/26/19. Roberta Guthrie MD Quit smoking 01/06/2019 08/21/2019 Overview: 01/06/2019Pt recently quit smoking 2 days ago. Discussed risks of smoking during and advised pt to continue not smokingTKRN Nausea and vomiting in 01/06/2019 07/11/2019 Overview: 01/06/2019Patient is complaining of nausea in . Denies any vomiting. Dietary recommendations discussed. Recommended Vitamin B6. Advised patient to call/come in if she is unable to keep any food or fluids down in a 24-hour period.TKRN History of recurrent UTIs 01/06/20192018 Overview: 01/06/2019 Pt has a history of recurrent UTI. Discussed importance of reporting the onset of any symptoms of a UTI should it occur during . She was seen by Surekha maciel and she recommended patient see a urologist. Patient no showed urology appointment x2. Advised patient to reschedule appt with Urologist after discussing importance of keeping appointment. TKRN Family history of congenital heart defect 201808/21/2019 Overview: 01/06/2018 FOB's uncle born with hole in heart. Corrective surgery was done. TKRN Endometrial polyp 09/05/2017 01/27/2019 Adenomyosis 09/05/2017 01/27/2019 Migraine without aura 02/11/2015 06/26/2017 Tension type headache 02/11/2015 06/26/2017 Backache, unspecified 01/06/2014 06/26/2017 Internal derangement of right knee 08/05/2012 06/07/2015 documented as of this encounter (statuses as of 02/01/2023) [facility] History of Past illness Narrative* Problem Noted Date Resolved Date Herpes 09/22/2020 12/19/2020 Overview: No known outbreak . IgM and IgG positive. 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 Severe preeclampsia, third trimester 07/08/2019 08/21/2019 Overview: - Features being RUQ pain - BPs mild to severe on admission - CBC/CMP wnl on admission - Magnesium started at [facility], currently running 2g/hr - Continue to monitor Encounter for induction of labor 07/08/2019 08/21/2019 Overview: - GBS neg - s/p cytotec x3, CC - Pitocin per protocol - AROM @ 0315 for clear fluid - Epi in -IUPC in place Prematurity 07/08/2019 08/21/2019 Overview: - s/p BMZ 07/06 and 07/07 - Growth at 32w6d 4lb 9oz 42%ile - NICU aware, plan to deliver in the OR Pneumonia affecting 07/08/2019 Overview: - Productive cough with abnormal CXR findings - Amoxicillin and Azithromycin x5 days PICC (peripherally inserted central catheter) in place 07/08/2019 08/21/2019 Overview: - Placed for difficulty IV access Pre-eclampsia in third trimester 07/06/2019 08/21/2019 Overview: dx at 32 w 4 d Anemia during in third trimester 06/1908/21/2019 Overview: - Taking PO iron intermittently - Admission hgb 9.1 BV (bacterial vaginosis) 01/27/2019 019 Overview: 02/05/19-Flagyl 500mg PO BID x 7 days for BV treatment. Petty Rubalcava APRN.CNM January 27, 2019 Treat next appointment, treated for yeast on 01/26/19. Roberta Guthrie MD Quit smoking 01/06/2019 08/21/2019 Overview: 01/06/2019Pt recently quit smoking 2 days ago. Discussed risks of smoking during and advised pt to continue not smokingTKRN Nausea and vomiting in 01/06/2019 07/11/2019 Overview: 01/06/2019Patient is complaining of nausea in . Denies any vomiting. Dietary recommendations discussed. Recommended Vitamin B6. Advised patient to call/come in if she is unable to keep any food or fluids down in a 24-hour period.TKRN History of recurrent UTIs 01/06/20192018 Overview: 01/06/2019 Pt has a history of recurrent UTI. Discussed importance of reporting the onset of any symptoms of a UTI should it occur during . She was seen by Surekha maciel and she recommended patient see a urologist. Patient no showed urology appointment x2. Advised patient to reschedule appt with Urologist after discussing importance of keeping appointment. TKRN Family history of congenital heart defect 201808/21/2019 Overview: 01/06/2018 FOB's uncle born with hole in heart. Corrective surgery was done. TKRN Endometrial polyp 09/05/2017 01/27/2019 Adenomyosis 09/05/2017 01/27/2019 Migraine without aura 02/11/2015 06/26/2017 Tension type headache 02/11/2015 06/26/2017 Backache, unspecified 01/06/2014 06/26/2017 Internal derangement of right knee 08/05/2012 06/07/2015 documented as of this encounter (statuses as of 02/02/2023) [facility] History of Past illness Narrative* Problem Noted Date Resolved Date Herpes 09/22/2020 12/19/2020 Overview: No known outbreak . IgM and IgG positive. 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 Severe preeclampsia, third trimester 07/08/2019 08/21/2019 Overview: - Features being RUQ pain - BPs mild to severe on admission - CBC/CMP wnl on admission - Magnesium started at [facility], currently running 2g/hr - Continue to monitor Encounter for induction of labor 07/08/2019 08/21/2019 Overview: - GBS neg - s/p cytotec x3, CC - Pitocin per protocol - AROM @ 0315 for clear fluid - Epi in -IUPC in place Prematurity 07/08/2019 08/21/2019 Overview: - s/p BMZ 07/06 and 07/07 - Growth at 32w6d 4lb 9oz 42%ile - NICU aware, plan to deliver in the OR Pneumonia affecting 07/08/2019 Overview: - Productive cough with abnormal CXR findings - Amoxicillin and Azithromycin x5 days PICC (peripherally inserted central catheter) in place 07/08/2019 08/21/2019 Overview: - Placed for difficulty IV access Pre-eclampsia in third trimester 07/06/2019 08/21/2019 Overview: dx at 32 w 4 d Anemia during in third trimester 06/1908/21/2019 Overview: - Taking PO iron intermittently - Admission hgb 9.1 BV (bacterial vaginosis) 01/27/2019 019 Overview: 02/05/19-Flagyl 500mg PO BID x 7 days for BV treatment. Petty Rubalcava APRN.CN January 27, 2019 Treat next appointment, treated for yeast on 01/26/19. Roberta Guthrie MD Quit smoking 01/06/2019 08/21/2019 Overview: 01/06/2019Pt recently quit smoking 2 days ago. Discussed risks of smoking during and advised pt to continue not smokingTKRN Nausea and vomiting in 01/06/2019 07/11/2019 Overview: 01/06/2019Patient is complaining of nausea in . Denies any vomiting. Dietary recommendations discussed. Recommended Vitamin B6. Advised patient to call/come in if she is unable to keep any food or fluids down in a 24-hour period.TKRN History of recurrent UTIs 01/06/20192018 Overview: 01/06/2019 Pt has a history of recurrent UTI. Discussed importance of reporting the onset of any symptoms of a UTI should it occur during . She was seen by Surekha maciel and she recommended patient see a urologist. Patient no showed urology appointment x2. Advised patient to reschedule appt with Urologist after discussing importance of keeping appointment. TKRN Family history of congenital heart defect 201808/21/2019 Overview: 01/06/2018 FOB's uncle born with hole in heart. Corrective surgery was done. TKRN Endometrial polyp 09/05/2017 01/27/2019 Adenomyosis 09/05/2017 01/27/2019 Migraine without aura 02/11/2015 06/26/2017 Tension type headache 02/11/2015 06/26/2017 Backache, unspecified 01/06/2014 06/26/2017 Internal derangement of right knee 08/05/2012 06/07/2015 documented as of this encounter (statuses as of 02/22/2023) [facility] History of Past illness Narrative* Problem Noted Date Resolved Date Herpes 09/22/2020 12/19/2020 Overview: No known outbreak . IgM and IgG positive. 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 Severe preeclampsia, third trimester 07/08/2019 08/21/2019 Overview: - Features being RUQ pain - BPs mild to severe on admission - CBC/CMP wnl on admission - Magnesium started at [facility], currently running 2g/hr - Continue to monitor Encounter for induction of labor 07/08/2019 08/21/2019 Overview: - GBS neg - s/p cytotec x3, CC - Pitocin per protocol - AROM @ 0315 for clear fluid - Epi in -IUPC in place Prematurity 07/08/2019 08/21/2019 Overview: - s/p BMZ 07/06 and 07/07 - Growth at 32w6d 4lb 9oz 42%ile - NICU aware, plan to deliver in the OR Pneumonia affecting 07/08/2019 Overview: - Productive cough with abnormal CXR findings - Amoxicillin and Azithromycin x5 days PICC (peripherally inserted central catheter) in place 07/08/2019 08/21/2019 Overview: - Placed for difficulty IV access Pre-eclampsia in third trimester 07/06/2019 08/21/2019 Overview: dx at 32 w 4 d Anemia during in third trimester 06/1908/21/2019 Overview: - Taking PO iron intermittently - Admission hgb 9.1 BV (bacterial vaginosis) 01/27/2019 019 Overview: 02/05/19-Flagyl 500mg PO BID x 7 days for BV treatment. Petty Rubalcava APRN.CNYessenia January 27, 2019 Treat next appointment, treated for yeast on 01/26/19. Roberta Guthrie MD Quit smoking 01/06/2019 08/21/2019 Overview: 01/06/2019Pt recently quit smoking 2 days ago. Discussed risks of smoking during and advised pt to continue not smokingTKRN Nausea and vomiting in 01/06/2019 07/11/2019 Overview: 01/06/2019Patient is complaining of nausea in . Denies any vomiting. Dietary recommendations discussed. Recommended Vitamin B6. Advised patient to call/come in if she is unable to keep any food or fluids down in a 24-hour period.TKRN History of recurrent UTIs 01/06/20192018 Overview: 01/06/2019 Pt has a history of recurrent UTI. Discussed importance of reporting the onset of any symptoms of a UTI should it occur during . She was seen by Surekha maciel and she recommended patient see a urologist. Patient no showed urology appointment x2. Advised patient to reschedule appt with Urologist after discussing importance of keeping appointment. TKRN Family history of congenital heart defect 201808/21/2019 Overview: 01/06/2018 FOB's uncle born with hole in heart. Corrective surgery was done. TKRN Endometrial polyp 09/05/2017 01/27/2019 Adenomyosis 09/05/2017 01/27/2019 Migraine without aura 02/11/2015 06/26/2017 Tension type headache 02/11/2015 06/26/2017 Backache, unspecified 01/06/2014 06/26/2017 Internal derangement of right knee 08/05/2012 06/07/2015 documented as of this encounter (statuses as of 02/22/2023) [facility] History of Past illness Narrative* Problem Noted Date Resolved Date Herpes 09/22/2020 12/19/2020 Overview: No known outbreak . IgM and IgG positive. 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 Severe preeclampsia, third trimester 07/08/2019 08/21/2019 Overview: - Features being RUQ pain - BPs mild to severe on admission - CBC/CMP wnl on admission - Magnesium started at [facility], currently running 2g/hr - Continue to monitor Encounter for induction of labor 07/08/2019 08/21/2019 Overview: - GBS neg - s/p cytotec x3, CC - Pitocin per protocol - AROM @ 0315 for clear fluid - Epi in -IUPC in place Prematurity 07/08/2019 08/21/2019 Overview: - s/p BMZ 07/06 and 07/07 - Growth at 32w6d 4lb 9oz 42%ile - NICU aware, plan to deliver in the OR Pneumonia affecting 07/08/2019 Overview: - Productive cough with abnormal CXR findings - Amoxicillin and Azithromycin x5 days PICC (peripherally inserted central catheter) in place 07/08/2019 08/21/2019 Overview: - Placed for difficulty IV access Pre-eclampsia in third trimester 07/06/2019 08/21/2019 Overview: dx at 32 w 4 d Anemia during in third trimester 06/1908/21/2019 Overview: - Taking PO iron intermittently - Admission hgb 9.1 BV (bacterial vaginosis) 01/27/2019 019 Overview: 02/05/19-Flagyl 500mg PO BID x 7 days for BV treatment. Petty Rubalcava APRN.CNM January 27, 2019 Treat next appointment, treated for yeast on 01/26/19. Roberta Guthrie MD Quit smoking 01/06/2019 08/21/2019 Overview: 01/06/2019Pt recently quit smoking 2 days ago. Discussed risks of smoking during and advised pt to continue not smokingTKRN Nausea and vomiting in 01/06/2019 07/11/2019 Overview: 01/06/2019Patient is complaining of nausea in . Denies any vomiting. Dietary recommendations discussed. Recommended Vitamin B6. Advised patient to call/come in if she is unable to keep any food or fluids down in a 24-hour period.TKRN History of recurrent UTIs 01/06/20192018 Overview: 01/06/2019 Pt has a history of recurrent UTI. Discussed importance of reporting the onset of any symptoms of a UTI should it occur during . She was seen by Surekha maciel and she recommended patient see a urologist. Patient no showed urology appointment x2. Advised patient to reschedule appt with Urologist after discussing importance of keeping appointment. TKRN Family history of congenital heart defect 201808/21/2019 Overview: 01/06/2018 FOB's uncle born with hole in heart. Corrective surgery was done. TKRN Endometrial polyp 09/05/2017 01/27/2019 Adenomyosis 09/05/2017 01/27/2019 Migraine without aura 02/11/2015 06/26/2017 Tension type headache 02/11/2015 06/26/2017 Backache, unspecified 01/06/2014 06/26/2017 Internal derangement of right knee 08/05/2012 06/07/2015 documented as of this encounter (statuses as of 02/22/2023) [facility] History of Past illness Narrative* Problem Noted Date Diagnosed Date Resolved Date Herpes 09/22/2020 12/19/2020 Overview: No known outbreak . IgM and IgG positive. 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 Severe preeclampsia, third trimester 07/08/2019 08/21/2019 Overview: - Features being RUQ pain - BPs mild to severe on admission - CBC/CMP wnl on admission - Magnesium started at [facility], currently running 2g/hr - Continue to monitor Encounter for induction of labor 07/08/2019 08/21/2019 Overview: - GBS neg - s/p cytotec x3, CC - Pitocin per protocol - AROM @ 0315 for clear fluid - Epi in -IUPC in place Prematurity 07/08/2019 08/21/2019 Overview: - s/p BMZ 07/06 and 07/07 - Growth at 32w6d 4lb 9oz 42%ile - NICU aware, plan to deliver in the OR Pneumonia affecting 07/08/2019 08/21/2019 Overview: - Productive cough with abnormal CXR findings - Amoxicillin and Azithromycin x5 days PICC (peripherally inserted central catheter) in place 07/08/2019 08/21/2019 Overview: - Placed for difficulty IV access Pre-eclampsia in third trimester 07/06/2019 08/21/2019 Overview: dx at 32 w 4 d Anemia during in third trimester 06/19/2019 08/21/2019 Overview: - Taking PO iron intermittently - Admission hgb 9.1 BV (bacterial vaginosis) 01/27/2019 Overview: 02/05/19-Flagyl 500mg PO BID x 7 days for BV treatment. Petty Rubalcava APRN.CN January 27, 2019 Treat next appointment, treated for yeast on 01/26/19. Roberta Guthrie MD Quit smoking 01/06/2019 08/21/2019 Overview: 01/06/2019Pt recently quit smoking 2 days ago. Discussed risks of smoking during and advised pt to continue not smokingTKRN Nausea and vomiting in 01/06/2019 07/11/2019 Overview: 01/06/2019Patient is complaining of nausea in . Denies any vomiting. Dietary recommendations discussed. Recommended Vitamin B6. Advised patient to call/come in if she is unable to keep any food or fluids down in a 24-hour period.TKRN History of recurrent UTIs 01/06/2019 Overview: 01/06/2019 Pt has a history of recurrent UTI. Discussed importance of reporting the onset of any symptoms of a UTI should it occur during . She was seen by Surekha maciel and she recommended patient see a urologist. Patient no showed urology appointment x2. Advised patient to reschedule appt with Urologist after discussing importance of keeping appointment. TKRN Family history of congenital heart defect 01/06/2019 08/21/2019 Overview: 01/06/2018 FOB's uncle born with hole in heart. Corrective surgery was done. TKRN Endometrial polyp 09/05/2017 01/27/2019 Adenomyosis 09/05/2017 01/27/2019 Migraine without aura 02/11/20152016 Tension type headache 02/11/20152016 Backache, unspecified 01/06/20142016 Internal derangement of right knee 08/05/2012 06/07/2015 documented as of this encounter (statuses as of 04/24/2023) [facility] History of Past illness Narrative* Problem Noted Date Diagnosed Date Resolved Date Herpes 09/22/2020 12/19/2020 Overview: No known outbreak . IgM and IgG positive. 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 Severe preeclampsia, third trimester 07/08/2019 08/21/2019 Overview: - Features being RUQ pain - BPs mild to severe on admission - CBC/CMP wnl on admission - Magnesium started at [facility], currently running 2g/hr - Continue to monitor Encounter for induction of labor 07/08/2019 08/21/2019 Overview: - GBS neg - s/p cytotec x3, CC - Pitocin per protocol - AROM @ 0315 for clear fluid - Epi in -IUPC in place Prematurity 07/08/2019 08/21/2019 Overview: - s/p BMZ 07/06 and 07/07 - Growth at 32w6d 4lb 9oz 42%ile - NICU aware, plan to deliver in the OR Pneumonia affecting 07/08/2019 08/21/2019 Overview: - Productive cough with abnormal CXR findings - Amoxicillin and Azithromycin x5 days PICC (peripherally inserted central catheter) in place 07/08/2019 08/21/2019 Overview: - Placed for difficulty IV access Pre-eclampsia in third trimester 07/06/2019 08/21/2019 Overview: dx at 32 w 4 d Anemia during in third trimester 06/19/2019 08/21/2019 Overview: - Taking PO iron intermittently - Admission hgb 9.1 BV (bacterial vaginosis) 01/27/2019 Overview: 02/05/19-Flagyl 500mg PO BID x 7 days for BV treatment. Petty Rubalcava APRN.CNM January 27, 2019 Treat next appointment, treated for yeast on 01/26/19. Roberta Guthrie MD Quit smoking 01/06/2019 08/21/2019 Overview: 01/06/2019Pt recently quit smoking 2 days ago. Discussed risks of smoking during and advised pt to continue not smokingTKRN Nausea and vomiting in 01/06/2019 07/11/2019 Overview: 01/06/2019Patient is complaining of nausea in . Denies any vomiting. Dietary recommendations discussed. Recommended Vitamin B6. Advised patient to call/come in if she is unable to keep any food or fluids down in a 24-hour period.TKRN History of recurrent UTIs 01/06/2019 Overview: 01/06/2019 Pt has a history of recurrent UTI. Discussed importance of reporting the onset of any symptoms of a UTI should it occur during . She was seen by Surekha maciel and she recommended patient see a urologist. Patient no showed urology appointment x2. Advised patient to reschedule appt with Urologist after discussing importance of keeping appointment. TKRN Family history of congenital heart defect 01/06/2019 08/21/2019 Overview: 01/06/2018 FOB's uncle born with hole in heart. Corrective surgery was done. TKRN Endometrial polyp 09/05/2017 01/27/2019 Adenomyosis 09/05/2017 01/27/2019 Migraine without aura 02/11/20152016 Tension type headache 02/11/20152016 Backache, unspecified 01/06/20142016 Internal derangement of right knee 08/05/2012 06/07/2015 documented as of this encounter (statuses as of 05/23/2023) [facility] History of Past illness Narrative* Problem Noted Date Diagnosed Date Resolved Date Herpes 09/22/2020 12/19/2020 Overview: No known outbreak . IgM and IgG positive. 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 Severe preeclampsia, third trimester 07/08/2019 08/21/2019 Overview: - Features being RUQ pain - BPs mild to severe on admission - CBC/CMP wnl on admission - Magnesium started at [facility], currently running 2g/hr - Continue to monitor Encounter for induction of labor 07/08/2019 08/21/2019 Overview: - GBS neg - s/p cytotec x3, CC - Pitocin per protocol - AROM @ 0315 for clear fluid - Epi in -IUPC in place Prematurity 07/08/2019 08/21/2019 Overview: - s/p BMZ 07/06 and 07/07 - Growth at 32w6d 4lb 9oz 42%ile - NICU aware, plan to deliver in the OR Pneumonia affecting 07/08/2019 08/21/2019 Overview: - Productive cough with abnormal CXR findings - Amoxicillin and Azithromycin x5 days PICC (peripherally inserted central catheter) in place 07/08/2019 08/21/2019 Overview: - Placed for difficulty IV access Pre-eclampsia in third trimester 07/06/2019 08/21/2019 Overview: dx at 32 w 4 d Anemia during in third trimester 06/19/2019 08/21/2019 Overview: - Taking PO iron intermittently - Admission hgb 9.1 BV (bacterial vaginosis) 01/27/2019 Overview: 02/05/19-Flagyl 500mg PO BID x 7 days for BV treatment. Petty Rubalcava APRN.CNM January 27, 2019 Treat next appointment, treated for yeast on 01/26/19. Roberta Guthrie MD Quit smoking 01/06/2019 08/21/2019 Overview: 01/06/2019Pt recently quit smoking 2 days ago. Discussed risks of smoking during and advised pt to continue not smokingTKRN Nausea and vomiting in 01/06/2019 07/11/2019 Overview: 01/06/2019Patient is complaining of nausea in . Denies any vomiting. Dietary recommendations discussed. Recommended Vitamin B6. Advised patient to call/come in if she is unable to keep any food or fluids down in a 24-hour period.TKRN History of recurrent UTIs 01/06/2019 Overview: 01/06/2019 Pt has a history of recurrent UTI. Discussed importance of reporting the onset of any symptoms of a UTI should it occur during . She was seen by Surekha maciel and she recommended patient see a urologist. Patient no showed urology appointment x2. Advised patient to reschedule appt with Urologist after discussing importance of keeping appointment. TKRN Family history of congenital heart defect 01/06/2019 08/21/2019 Overview: 01/06/2018 FOB's uncle born with hole in heart. Corrective surgery was done. TKRN Endometrial polyp 09/05/2017 01/27/2019 Adenomyosis 09/05/2017 01/27/2019 Migraine without aura 02/11/20152016 Tension type headache 02/11/20152016 Backache, unspecified 01/06/20142016 Internal derangement of right knee 08/05/2012 06/07/2015 documented as of this encounter (statuses as of 06/14/2023) [facility] History of Past illness Narrative* Problem Noted Date Diagnosed Date Resolved Date Herpes 09/22/2020 12/19/2020 Overview: No known outbreak . IgM and IgG positive. 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 Severe preeclampsia, third trimester 07/08/2019 08/21/2019 Overview: - Features being RUQ pain - BPs mild to severe on admission - CBC/CMP wnl on admission - Magnesium started at [facility], currently running 2g/hr - Continue to monitor Encounter for induction of labor 07/08/2019 08/21/2019 Overview: - GBS neg - s/p cytotec x3, CC - Pitocin per protocol - AROM @ 0315 for clear fluid - Epi in -IUPC in place Prematurity 07/08/2019 08/21/2019 Overview: - s/p BMZ 07/06 and 07/07 - Growth at 32w6d 4lb 9oz 42%ile - NICU aware, plan to deliver in the OR Pneumonia affecting 07/08/2019 08/21/2019 Overview: - Productive cough with abnormal CXR findings - Amoxicillin and Azithromycin x5 days PICC (peripherally inserted central catheter) in place 07/08/2019 08/21/2019 Overview: - Placed for difficulty IV access Pre-eclampsia in third trimester 07/06/2019 08/21/2019 Overview: dx at 32 w 4 d Anemia during in third trimester 06/19/2019 08/21/2019 Overview: - Taking PO iron intermittently - Admission hgb 9.1 BV (bacterial vaginosis) 01/27/2019 Overview: 02/05/19-Flagyl 500mg PO BID x 7 days for BV treatment. Petty Rubalcava APRN.CN January 27, 2019 Treat next appointment, treated for yeast on 01/26/19. Roberta Guthrie MD Quit smoking 01/06/2019 08/21/2019 Overview: 01/06/2019Pt recently quit smoking 2 days ago. Discussed risks of smoking during and advised pt to continue not smokingTKRN Nausea and vomiting in 01/06/2019 07/11/2019 Overview: 01/06/2019Patient is complaining of nausea in . Denies any vomiting. Dietary recommendations discussed. Recommended Vitamin B6. Advised patient to call/come in if she is unable to keep any food or fluids down in a 24-hour period.TKRN History of recurrent UTIs 01/06/2019 Overview: 01/06/2019 Pt has a history of recurrent UTI. Discussed importance of reporting the onset of any symptoms of a UTI should it occur during . She was seen by Surekha maciel and she recommended patient see a urologist. Patient no showed urology appointment x2. Advised patient to reschedule appt with Urologist after discussing importance of keeping appointment. TKRN Family history of congenital heart defect 01/06/2019 08/21/2019 Overview: 01/06/2018 FOB's uncle born with hole in heart. Corrective surgery was done. TKRN Endometrial polyp 09/05/2017 01/27/2019 Adenomyosis 09/05/2017 01/27/2019 Migraine without aura 02/11/20152016 Tension type headache 02/11/20152016 Backache, unspecified 01/06/20142016 Internal derangement of right knee 08/05/2012 06/07/2015 documented as of this encounter (statuses as of 07/12/2023) [facility] History of Past illness Narrative* Problem Noted Date Diagnosed Date Resolved Date Herpes 09/22/2020 12/19/2020 Overview: No known outbreak . IgM and IgG positive. 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 Severe preeclampsia, third trimester 07/08/2019 08/21/2019 Overview: - Features being RUQ pain - BPs mild to severe on admission - CBC/CMP wnl on admission - Magnesium started at [facility] [employer], currently running 2g/hr - Continue to monitor Encounter for induction of labor 07/08/2019 08/21/2019 Overview: - GBS neg - s/p cytotec x3, CC - Pitocin per protocol - AROM @ 0315 for clear fluid - Epi in -IUPC in place Prematurity 07/08/2019 08/21/2019 Overview: - s/p BMZ 07/06 and 07/07 - Growth at 32w6d 4lb 9oz 42%ile - NICU aware, plan to deliver in the OR Pneumonia affecting 07/08/2019 08/21/2019 Overview: - Productive cough with abnormal CXR findings - Amoxicillin and Azithromycin x5 days PICC (peripherally inserted central catheter) in place 07/08/2019 08/21/2019 Overview: - Placed for difficulty IV access Pre-eclampsia in third trimester 07/06/2019 08/21/2019 Overview: dx at 32 w 4 d Anemia during in third trimester 06/19/2019 08/21/2019 Overview: - Taking PO iron intermittently - Admission hgb 9.1 BV (bacterial vaginosis) 01/27/2019 Overview: 02/05/19-Flagyl 500mg PO BID x 7 days for BV treatment. Petty Rubalcava APRN.CNM January 27, 2019 Treat next appointment, treated for yeast on 01/26/19. Roberta Guthrie MD Quit smoking 01/06/2019 08/21/2019 Overview: 01/06/2019Pt recently quit smoking 2 days ago. Discussed risks of smoking during and advised pt to continue not smokingTKRN Nausea and vomiting in 01/06/2019 07/11/2019 Overview: 01/06/2019Patient is complaining of nausea in . Denies any vomiting. Dietary recommendations discussed. Recommended Vitamin B6. Advised patient to call/come in if she is unable to keep any food or fluids down in a 24-hour period.TKRN History of recurrent UTIs 01/06/2019 Overview: 01/06/2019 Pt has a history of recurrent UTI. Discussed importance of reporting the onset of any symptoms of a UTI should it occur during . She was seen by Surekha maciel and she recommended patient see a urologist. Patient no showed urology appointment x2. Advised patient to reschedule appt with Urologist after discussing importance of keeping appointment. TKRN Family history of congenital heart defect 01/06/2019 08/21/2019 Overview: 01/06/2018 FOB's uncle born with hole in heart. Corrective surgery was done. TKRN Endometrial polyp 09/05/2017 01/27/2019 Adenomyosis 09/05/2017 01/27/2019 Migraine without aura 02/11/20152016 Tension type headache 02/11/20152016 Backache, unspecified 01/06/20142016 Internal derangement of right knee 08/05/2012 06/07/2015 documented as of this encounter (statuses as of 07/17/2023) [facility] History of Past illness Narrative* Problem Noted Date Diagnosed Date Resolved Date Herpes 09/22/2020 12/19/2020 Overview: No known outbreak . IgM and IgG positive. Lona Waters, RAMÓN.FINAL TOUCH UP PAINTER Severe preeclampsia, third trimester 07/08/2019 08/21/2019 Overview: - Features being RUQ pain - BPs mild to severe on admission - CBC/CMP wnl on admission - Magnesium started at [facility], currently running 2g/hr - Continue to monitor Encounter for induction of labor 07/08/2019 08/21/2019 Overview: - GBS neg - s/p cytotec x3, CC - Pitocin per protocol - AROM @ 0315 for clear fluid - Epi in -IUPC in place Prematurity 07/08/2019 08/21/2019 Overview: - s/p BMZ 07/06 and 07/07 - Growth at 32w6d 4lb 9oz 42%ile - NICU aware, plan to deliver in the OR Pneumonia affecting 07/08/2019 08/21/2019 Overview: - Productive cough with abnormal CXR findings - Amoxicillin and Azithromycin x5 days PICC (peripherally inserted central catheter) in place 07/08/2019 08/21/2019 Overview: - Placed for difficulty IV access Pre-eclampsia in third trimester 07/06/2019 08/21/2019 Overview: dx at 32 w 4 d Anemia during in third trimester 06/19/2019 08/21/2019 Overview: - Taking PO iron intermittently - Admission hgb 9.1 BV (bacterial vaginosis) 01/27/2019 Overview: 02/05/19-Flagyl 500mg PO BID x 7 days for BV treatment. Petty Rubalcava APRN.CNM January 27, 2019 Treat next appointment, treated for yeast on 01/26/19. Roberta Guthrie MD Quit smoking 01/06/2019 08/21/2019 Overview: 01/06/2019Pt recently quit smoking 2 days ago. Discussed risks of smoking during and advised pt to continue not smokingTKRN Nausea and vomiting in 01/06/2019 07/11/2019 Overview: 01/06/2019Patient is complaining of nausea in . Denies any vomiting. Dietary recommendations discussed. Recommended Vitamin B6. Advised patient to call/come in if she is unable to keep any food or fluids down in a 24-hour period.TKRN History of recurrent UTIs 01/06/2019 Overview: 01/06/2019 Pt has a history of recurrent UTI. Discussed importance of reporting the onset of any symptoms of a UTI should it occur during . She was seen by Surekha maciel and she recommended patient see a urologist. Patient no showed urology appointment x2. Advised patient to reschedule appt with Urologist after discussing importance of keeping appointment. TKRN Family history of congenital heart defect 01/06/2019 08/21/2019 Overview: 01/06/2018 FOB's uncle born with hole in heart. Corrective surgery was done. TKRN Endometrial polyp 09/05/2017 01/27/2019 Adenomyosis 09/05/2017 01/27/2019 Migraine without aura 02/11/20152016 Tension type headache 02/11/20152016 Backache, unspecified 01/06/20142016 Internal derangement of right knee 08/05/2012 06/07/2015 documented as of this encounter (statuses as of 08/22/2023) [facility] History of Past illness Narrative* Problem Noted Date Diagnosed Date Resolved Date Herpes 09/22/2020 12/19/2020 Overview: No known outbreak . IgM and IgG positive. 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 Severe preeclampsia, third trimester 07/08/2019 08/21/2019 Overview: - Features being RUQ pain - BPs mild to severe on admission - CBC/CMP wnl on admission - Magnesium started at [facility] [employer], currently running 2g/hr - Continue to monitor Encounter for induction of labor 07/08/2019 08/21/2019 Overview: - GBS neg - s/p cytotec x3, CC - Pitocin per protocol - AROM @ 0315 for clear fluid - Epi in -IUPC in place Prematurity 07/08/2019 08/21/2019 Overview: - s/p BMZ 07/06 and 07/07 - Growth at 32w6d 4lb 9oz 42%ile - NICU aware, plan to deliver in the OR Pneumonia affecting 07/08/2019 08/21/2019 Overview: - Productive cough with abnormal CXR findings - Amoxicillin and Azithromycin x5 days PICC (peripherally inserted central catheter) in place 07/08/2019 08/21/2019 Overview: - Placed for difficulty IV access Pre-eclampsia in third trimester 07/06/2019 08/21/2019 Overview: dx at 32 w 4 d Anemia during in third trimester 06/19/2019 08/21/2019 Overview: - Taking PO iron intermittently - Admission hgb 9.1 BV (bacterial vaginosis) 01/27/2019 Overview: 02/05/19-Flagyl 500mg PO BID x 7 days for BV treatment. Petty Rubalcava APRN.CN January 27, 2019 Treat next appointment, treated for yeast on 01/26/19. Roberta Guthrie MD Quit smoking 01/06/2019 08/21/2019 Overview: 01/06/2019Pt recently quit smoking 2 days ago. Discussed risks of smoking during and advised pt to continue not smokingTKRN Nausea and vomiting in 01/06/2019 07/11/2019 Overview: 01/06/2019Patient is complaining of nausea in . Denies any vomiting. Dietary recommendations discussed. Recommended Vitamin B6. Advised patient to call/come in if she is unable to keep any food or fluids down in a 24-hour period.TKRN History of recurrent UTIs 01/06/2019 Overview: 01/06/2019 Pt has a history of recurrent UTI. Discussed importance of reporting the onset of any symptoms of a UTI should it occur during . She was seen by Surekha maciel and she recommended patient see a urologist. Patient no showed urology appointment x2. Advised patient to reschedule appt with Urologist after discussing importance of keeping appointment. TKRN Family history of congenital heart defect 01/06/2019 08/21/2019 Overview: 01/06/2018 FOB's uncle born with hole in heart. Corrective surgery was done. TKRN Endometrial polyp 09/05/2017 01/27/2019 Adenomyosis 09/05/2017 01/27/2019 Migraine without aura 02/11/20152016 Tension type headache 02/11/20152016 Backache, unspecified 01/06/20142016 Internal derangement of right knee 08/05/2012 06/07/2015 documented as of this encounter (statuses as of 11/03/2023) [facility] History of Past illness Narrative* Problem Noted Date Diagnosed Date Resolved Date Herpes 09/22/2020 12/19/2020 Overview: No known outbreak . IgM and IgG positive. 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 Severe preeclampsia, third trimester 07/08/2019 08/21/2019 Overview: - Features being RUQ pain - BPs mild to severe on admission - CBC/CMP wnl on admission - Magnesium started at [facility], currently running 2g/hr - Continue to monitor Encounter for induction of labor 07/08/2019 08/21/2019 Overview: - GBS neg - s/p cytotec x3, CC - Pitocin per protocol - AROM @ 0315 for clear fluid - Epi in -IUPC in place Prematurity 07/08/2019 08/21/2019 Overview: - s/p BMZ 07/06 and 07/07 - Growth at 32w6d 4lb 9oz 42%ile - NICU aware, plan to deliver in the OR Pneumonia affecting 07/08/2019 08/21/2019 Overview: - Productive cough with abnormal CXR findings - Amoxicillin and Azithromycin x5 days PICC (peripherally inserted central catheter) in place 07/08/2019 08/21/2019 Overview: - Placed for difficulty IV access Pre-eclampsia in third trimester 07/06/2019 08/21/2019 Overview: dx at 32 w 4 d Anemia during in third trimester 06/19/2019 08/21/2019 Overview: - Taking PO iron intermittently - Admission hgb 9.1 BV (bacterial vaginosis) 01/27/2019 Overview: 02/05/19-Flagyl 500mg PO BID x 7 days for BV treatment. Petty Rubalcava APRN.CNM January 27, 2019 Treat next appointment, treated for yeast on 01/26/19. Roberta Guthrie MD Quit smoking 01/06/2019 08/21/2019 Overview: 01/06/2019Pt recently quit smoking 2 days ago. Discussed risks of smoking during and advised pt to continue not smokingTKRN Nausea and vomiting in 01/06/2019 07/11/2019 Overview: 01/06/2019Patient is complaining of nausea in . Denies any vomiting. Dietary recommendations discussed. Recommended Vitamin B6. Advised patient to call/come in if she is unable to keep any food or fluids down in a 24-hour period.TKRN History of recurrent UTIs 01/06/2019 Overview: 01/06/2019 Pt has a history of recurrent UTI. Discussed importance of reporting the onset of any symptoms of a UTI should it occur during . She was seen by Surekha maciel and she recommended patient see a urologist. Patient no showed urology appointment x2. Advised patient to reschedule appt with Urologist after discussing importance of keeping appointment. TKRN Family history of congenital heart defect 01/06/2019 08/21/2019 Overview: 01/06/2018 FOB's uncle born with hole in heart. Corrective surgery was done. TKRN Endometrial polyp 09/05/2017 01/27/2019 Adenomyosis 09/05/2017 01/27/2019 Migraine without aura 02/11/20152016 Tension type headache 02/11/20152016 Backache, unspecified 01/06/20142016 Internal derangement of right knee 08/05/2012 06/07/2015 documented as of this encounter (statuses as of 12/24/2023) [facility] History of Past illness Narrative* Problem Noted Date Diagnosed Date Resolved Date Herpes 09/22/2020 12/19/2020 Overview: No known outbreak . IgM and IgG positive. 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 Severe preeclampsia, third trimester 07/08/2019 08/21/2019 Overview: - Features being RUQ pain - BPs mild to severe on admission - CBC/CMP wnl on admission - Magnesium started at [facility] [employer], currently running 2g/hr - Continue to monitor Encounter for induction of labor 07/08/2019 08/21/2019 Overview: - GBS neg - s/p cytotec x3, CC - Pitocin per protocol - AROM @ 0315 for clear fluid - Epi in -IUPC in place Prematurity 07/08/2019 08/21/2019 Overview: - s/p BMZ 07/06 and 07/07 - Growth at 32w6d 4lb 9oz 42%ile - NICU aware, plan to deliver in the OR Pneumonia affecting 07/08/2019 08/21/2019 Overview: - Productive cough with abnormal CXR findings - Amoxicillin and Azithromycin x5 days PICC (peripherally inserted central catheter) in place 07/08/2019 08/21/2019 Overview: - Placed for difficulty IV access Pre-eclampsia in third trimester 07/06/2019 08/21/2019 Overview: dx at 32 w 4 d Anemia during in third trimester 06/19/2019 08/21/2019 Overview: - Taking PO iron intermittently - Admission hgb 9.1 BV (bacterial vaginosis) 01/27/2019 Overview: 02/05/19-Flagyl 500mg PO BID x 7 days for BV treatment. Petty Rubalcava APRN.CN January 27, 2019 Treat next appointment, treated for yeast on 01/26/19. Roberta Guthrie MD Quit smoking 01/06/2019 08/21/2019 Overview: 01/06/2019Pt recently quit smoking 2 days ago. Discussed risks of smoking during and advised pt to continue not smokingTKRN Nausea and vomiting in 01/06/2019 07/11/2019 Overview: 01/06/2019Patient is complaining of nausea in . Denies any vomiting. Dietary recommendations discussed. Recommended Vitamin B6. Advised patient to call/come in if she is unable to keep any food or fluids down in a 24-hour period.TKRN History of recurrent UTIs 01/06/2019 Overview: 01/06/2019 Pt has a history of recurrent UTI. Discussed importance of reporting the onset of any symptoms of a UTI should it occur during . She was seen by Surekha maciel and she recommended patient see a urologist. Patient no showed urology appointment x2. Advised patient to reschedule appt with Urologist after discussing importance of keeping appointment. TKRN Family history of congenital heart defect 01/06/2019 08/21/2019 Overview: 01/06/2018 FOB's uncle born with hole in heart. Corrective surgery was done. TKRN Endometrial polyp 09/05/2017 01/27/2019 Adenomyosis 09/05/2017 01/27/2019 Migraine without aura 02/11/20152016 Tension type headache 02/11/20152016 Backache, unspecified 01/06/20142016 Internal derangement of right knee 08/05/2012 06/07/2015 documented as of this encounter (statuses as of 12/24/2023) [facility] Eunice Pereira [facility] Note Date/Time December 17, 2024 10: 31[facility] Medical Records Department [address] [place] [address] Anesthesia Postop Eval I 12/17/24 1022 MR#: [id number] Acct: [id number] Name: EB HUI EILEEN Rep #:[id number] : 2000 24 From: Eunice Pereira CRNA PCP: JEIMY Abrams Status: REG SDC Y Race: C Location: [place] [address] Anesthesia: Postop Eval I Current Vital Signs Temperature: 97.7 F Pulse Rate: 59 Blood Pressure: 116/75 Respiratory Rate: 16 Pulse Ox: 99 Oxygen Delivery Method: Room Air Assessment Airway patent: Yes Spontaneous unlabored respirations: Yes Mental status: Awake and Calm nausea: No Vomiting: No Anesthesia Complication: No Fluid Hydration Crystalloid volume administer (ml): 500 Total IV fluid infused: 500 Progress Note Anesthesia document: Postop Eval 1 completed: Yes 12/17/24 1031 <Electronically signed by Eunice AWAD> Date _ Eunice Pereira YARN WORKER Cosigner Signature: Date CC: ~ Signed [facility] Work Phone: Discharge summary Author Nella Escalera [facility] Note Date/Time December 17, 2024 11: 24am [facility] Medical Records Department [address] [place] [address] Instructions for Home/Discharge Instructions 12/17/24 1019 MR#: [id number] Acct: [id number] Name: EB HUI EILEEN Rep #:[id number] : 2000 24 From: Nella Hood MD PCP: WIND UP OPERATOR. JEIMY Pinto Status: REG [facility] Discharge Instructions Diet Discharge Diet: No restrictions DC O2, CPAP, BIPAP needs Home O2 Discharge instructions: No Dressing / Incision May resume sexual activity in: 1 week Dressing / Incision Call your doctor if you observe: Fever of 101 or Higher, Inability to urinate, Using more than 1 pad per hour and Uncontrolled pain Follow Up Care Please Follow Up With: Nella Ward MD When: 1-2 weeks post OP if you need an appointment please call [phone] Test Results: Test results from this visit will be discussed in further detail at your follow- up appointment, if applicable. Discharge Plan Admission Attending Provider: Nella Ward Primary Care Provider: Petty Vasquez Instructions Print Language: Guamanian Discharge Orders/Prescriptions Prescriptions: No Action alprazolam 0.5 mg tablet 0.5 mg PO PRN Other Ambulatory Orders: ,Urine (Routine) Timeframe: 20241217 Facility: [facility] - Location: Laboratory Ordered By: Dr. Jamey Lilly Referrals / Follow Up: Petty Vasquez, BHUPENDRA-C [Primary Care Provider] - Disposition Disposition (needs filled in before D/C Order can be placed): Home, Self Care 12/17/24 1019<Electronically signed by Nella Ward MD>Nella Ward MD CC: WIND UP OPERATOR-C WIND UP OPERATOR. Petty Vasquez ~ Signed [facility] Work Phone: Evaluation note* Diagnosis Vaginal irritation- Primary Unspecified noninflammatory disorder of vagina Irritant contact dermatitis, unspecified trigger documented in this encounter [facility] noteNo assessment information availableWFort [facility] Work Phone: Evaluation note* Diagnosis Positive urine test- Primary examination or test, positive result [facility] [place]* Diagnosis Oropharyngeal lesion- Primary Unspecified disease of pharynx documented in this encounter [facility] note* Diagnosis AVM (arteriovenous malformation)- Primary Congenital anomaly of the peripheral vascular system, unspecified site [facility] [place] [facility]* Diagnosis Pre-op evaluation- Primary Preoperative examination, unspecified AVM (arteriovenous malformation) Congenital anomaly of the peripheral vascular system, unspecified site Mild major depression (HCC) Major depressive disorder, single episode, mild Smoker Tobacco use disorder Frequent UTI Urinary tract infection, site not specified History of scoliosis Personal history of other musculoskeletal disorders [facility] [place] [facility]* Diagnosis Pruritus- Primary Unspecified pruritic disorder documented in this encounter [facility] note* Diagnosis Burning with urination- Primary Dysuria Screening for STD (sexually transmitted disease) Screening examination for venereal disease Vaginal discharge Leukorrhea, not specified as infective documented [facility] [place] [facility]* Diagnosis Chlamydia- Primary Unspecified chlamydial infection, in conditions classified elsewhere and of unspecified site BV (bacterial vaginosis) Vaginitis and vulvovaginitis, unspecified Vaginal yeast infection Candidiasis of vulva and vagina documented [facility] [place] [facility]* Diagnosis Vaginal discharge- Primary Leukorrhea, not specified as infective documented in this encounter [facility] note* Diagnosis Chlamydia- Primary Unspecified chlamydial infection, in conditions classified elsewhere and of unspecified site BV (bacterial vaginosis) Vaginitis and vulvovaginitis, unspecified documented in this encounter [facility] note* Diagnosis Onset Date Resolution Status Encounter for pre-employment health screening examination [facility] Work Phone: Evaluation note* Diagnosis Screening for HIV (human immunodeficiency virus)- Primary Special screening examination for other specified viral diseases documented in this encounter [facility] note* Diagnosis Viral illness- Primary Unspecified viral infection, in conditions classified elsewhere and of unspecified site Hemoptysis Hemoptysis, unspecified documented in this encounter [facility] note* Diagnosis Lower respiratory tract infection- Primary Other diseases of respiratory system, not elsewhere classified documented in this encounter [facility] note* Diagnosis Lower resp. tract infection- Primary Other diseases of respiratory system, not elsewhere classified documented in this encounter [facility] note* Diagnosis Encounter for sexually transmitted disease counseling- Primary Counseling on other sexually transmitted diseases Dysuria Vaginal discharge Leukorrhea, not specified as infective documented in this encounter [facility] note* Diagnosis Oropharyngeal mass Swelling, mass, or lump in head and neck Postoperative pain Other acute postoperative pain Other chest pain Pre-op evaluation- Primary Preoperative examination, unspecified AVM (arteriovenous malformation) Congenital anomaly of the peripheral vascular system, unspecified site Mild major depression (HCC) Major depressive disorder, single episode, mild Smoker Tobacco use disorder Frequent UTI Urinary tract infection, site not specified History of scoliosis Personal history of other musculoskeletal disorders Hemoptysis Hemoptysis, unspecified documented in this encounter [facility] note* Diagnosis Cough Chest pain, unspecified type Pre-op evaluation- Primary Preoperative examination, unspecified AVM (arteriovenous malformation) Congenital anomaly of the peripheral vascular system, unspecified site Mild major depression (HCC) Major depressive disorder, single episode, mild Smoker Tobacco use disorder Frequent UTI Urinary tract infection, site not specified History of scoliosis Personal history of other musculoskeletal disorders documented in this encounter [facility] note* Diagnosis Oropharyngeal mass Swelling, mass, or lump in head and neck Postoperative pain Other acute postoperative pain Other chest pain Pre-op evaluation- Primary Preoperative examination, unspecified AVM (arteriovenous malformation) Congenital anomaly of the peripheral vascular system, unspecified site Mild major depression (HCC) Major depressive disorder, single episode, mild Smoker Tobacco use disorder Frequent UTI Urinary tract infection, site not specified History of scoliosis Personal history of other musculoskeletal disorders Fibrocystic breast changes of both breasts- Primary [facility] [place] [facility]* Diagnosis Oropharyngeal mass Swelling, mass, or lump in head and neck Postoperative pain Other acute postoperative pain Other chest pain Pre-op evaluation- Primary Preoperative examination, unspecified AVM (arteriovenous malformation) Congenital anomaly of the peripheral vascular system, unspecified site Mild major depression (HCC) Major depressive disorder, single episode, mild Smoker Tobacco use disorder Frequent UTI Urinary tract infection, site not specified History of scoliosis Personal history of other musculoskeletal disorders Encounter for gynecological examination (general) (routine) with abnormal findings- Primary Screening for cervical cancer Screening for malignant neoplasm of the cervix Encounter for screening for human papillomavirus (HPV) Special screening examination for human papillomavirus (HPV) Screening for STDs (sexually transmitted diseases) Screening examination for venereal disease Dysuria Abnormal uterine bleeding (AUB) Smoker Tobacco use disorder HSV-2 seropositive Other and unspecified nonspecific immunological findings documented in this encounter [facility] note* Diagnosis Oropharyngeal mass Swelling, mass, or lump in head and neck Postoperative pain Other acute postoperative pain Other chest pain Pre-op evaluation- Primary Preoperative examination, unspecified AVM (arteriovenous malformation) Congenital anomaly of the peripheral vascular system, unspecified site Mild major depression (HCC) Major depressive disorder, single episode, mild Smoker Tobacco use disorder Frequent UTI Urinary tract infection, site not specified History of scoliosis Personal history of other musculoskeletal disorders Urinary frequency- Primary Unprotected sex Problems related to high-risk sexual behavior [facility] [place] [facility] Diagnosis Oropharyngeal mass Swelling, mass, or lump in head and neck Postoperative pain Other acute postoperative pain Other chest pain Pre-op evaluation- Primary Preoperative examination, unspecified AVM (arteriovenous malformation) Congenital anomaly of the peripheral vascular system, unspecified site Mild major depression (HCC) Major depressive disorder, single episode, mild Smoker Tobacco use disorder Frequent UTI Urinary tract infection, site not specified History of scoliosis Personal history of other musculoskeletal disorders Abnormal uterine bleeding (AUB)- Primary Arcuate uterus Endometrial polyp Polyp of corpus uteri [facility] [place] [facility]* Diagnosis Oropharyngeal mass Swelling, mass, or lump in head and neck Postoperative pain Other acute postoperative pain Other chest pain Pre-op evaluation- Primary Preoperative examination, unspecified AVM (arteriovenous malformation) Congenital anomaly of the peripheral vascular system, unspecified site Mild major depression (HCC) Major depressive disorder, single episode, mild Smoker Tobacco use disorder Frequent UTI Urinary tract infection, site not specified History of scoliosis Personal history of other musculoskeletal disorders Endometrial polyp- Primary Polyp of corpus uteri Arcuate uterus Abnormal uterine bleeding (AUB) Chlamydial infection Unspecified chlamydial infection, in conditions classified elsewhere and of unspecified site [facility] Diagnosis Oropharyngeal mass Swelling, mass, or lump in head and neck Postoperative pain Other acute postoperative pain Other chest pain Pre-op evaluation- Primary Preoperative examination, unspecified AVM (arteriovenous malformation) Congenital anomaly of the peripheral vascular system, unspecified site Mild major depression (HCC) Major depressive disorder, single episode, mild Smoker Tobacco use disorder Frequent UTI Urinary tract infection, site not specified History of scoliosis Personal history of other musculoskeletal disorders Abnormal uterine bleeding (AUB)- Primary Endometrial polyp Polyp of corpus uteri Pre-op exam Preoperative examination, unspecified [facility] Additional Instructions Plenty of fluids and rest. Warm salt water gargling. Chloraseptic spray to help with the sore throat. Prednisone daily for the inflammation. Return if worse. Follow-up with ear nose and throat Dr. Arnaldo Vasquez if the inflammation in posterior pharynx does not improve.[facility] Work Phone: Hospital Discharge instructions Additional Instructions Ice all sore areas Alternate Tylenol and Motrin for pain and swelling. Follow-up with your doctor as needed.[facility] Work Phone: Hospital Discharge instructions Additional Instructions Thank you for trusting us with your care today! Please take naproxen or Aleve 500 mg every 12 hours in addition to already prescribed Vicodin for pain control. Given contains Tylenol. Please do not take Tylenol and Vicodin at the same time. Please return to the emergency department if your symptoms change or worsen. Please follow with your primary care physician for further outpatient evaluation and management.[facility] Work Phone: Reason for referral (narrative)* Diagnostic Procedure Only (Routine) - Authorized Specialty Diagnoses / Procedures Referred By Contac t Referred To Contact [facility] Diagnoses Abnormal uterine bleeding (AUB) Procedures PELVIC US WHI US PELVIC NONOBSTETRIC REAL-TIME IMAGE COMPLETE Rubalcava, Petty, INTELLECTUAL PROPERTY LAWYER.CNM [address] [place] [address] [address] Referral ID Status Reason Start Date Expiration Date Visits Requested Visits Authorized [id number] Authorized Auto-Generat ed Referral 10/26/2024 10/26/2025 1 1 * Physical Therapy (Routine) - Pending Review Specialty Diagnoses / Procedures Referred By Napoleon t Referred To Contact [facility] Diagnoses Dysuria Procedures CONSULT TO PHYSICAL THERAPY PHYSICAL THERAPY [facility]IGH COM[facility]X 45 MINS Petty Rubalcava APRN.CNM [address] [place] [address] [facility] [place] [id number] Referral ID Status Reason Start Date Expiration Date Visits Requested Visits Authorized [id number] Pending Review Auto-Generat ed Referral 10/26/2024 10/26/2025 1 1 * Consult, Test, Treat (Routine) - Authorized Specialty Diagnoses / Procedures Referred By Napoleon t Referred To Contact Urology Diagnoses Dysuria Procedures CONSULT TO UROLOGY OFFICE/OUTPATIENT NEW HIGH MDM 60 MINUTES Petty Rubalcava APRN.CNM [address] [place] [address] Referral ID Status Reason Start Date Expiration Date Visits Requested Visits Authorized [id number] Authorized PCP Requested Referral 10/26/2024 10/26/2025 1 1 [facility]No reason for referral [facility] Work [facility]: Reason for visit Narrative* Diagnostic Procedure Only (Routine) - Closed Specialty Diagnoses / Procedures Referred By Napoleon t Referred To Contact [facility] Diagnoses Abnormal uterine bleeding (AUB) Procedures PELVIC US WHI US PELVIC NONOBSTETRIC REAL-TIME IMAGE COMPLETE Petty Rubalcava APRN.CN [address] [place] [address] [facility] [place]Note 2] [address]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 [address] [place], [place] [address] PCP - General Internal Medicine 01/03/23 Mmi Teacher Relationship Specialty Start Date End Date Carolann Matthew MD [address] [place] [address] PCP - General Pediatrics 06/21/17 01/02/23 Mmi Teacher Relationship Specialty Start Date End Date Melquiades Quintanilla, INTELLECTUAL PROPERTY LAWYER.FINAL TOUCH UP PAINTER [address] [place], [place] [address] PCP - General Internal Medicine 01/03/23 Mmi Teacher Relationship Specialty Start Date End Date Melquiades Quintanilla, INTELLECTUAL PROPERTY LAWYER.FINAL TOUCH UP PAINTER [address] [place] [address] PCP - General Internal Medicine 01/03/23 Mmi Teacher Relationship Specialty Start Date End Date Melquiades Quintanilla, INTELLECTUAL PROPERTY LAWYER.FINAL TOUCH UP PAINTER [address] [place] [address] PCP - General Internal Medicine 01/03/23 Mmi Teacher Relationship Specialty Start Date End Date Melquiades Quintanilla, INTELLECTUAL PROPERTY LAWYER.FINAL TOUCH UP PAINTER [address] [place], [place] [address] PCP - General Internal Medicine 01/03/23 Mmi Teacher Relationship Specialty Start Date End Date Melquiades Quintanilla, INTELLECTUAL PROPERTY LAWYER.FINAL TOUCH UP PAINTER [address] [place] [address] PCP - General Internal Medicine 01/03/23 Mmi Teacher Relationship Specialty Start Date End Date Melquiades Quintanilla, INTELLECTUAL PROPERTY LAWYER.FINAL TOUCH UP PAINTER [address] [place] [address] PCP - General Internal Medicine 01/03/23 Team Status: Active Member Role Status Dates NP. Petty Vasquez WIND UP OPERATOR-C Primary Care Provider Activ e Team Status: Inactive Member Role Status Dates NP. Petty Vasquez , WIND UP OPERATOR-C Primary Care Provider Activ e Start: December 17, 2024 End: December 17, 2024 Dr. Nella Ward MD Attending Provider Ac tive Start: December 17, 2024 End: December 17, 2024 Dr. Nella Ward MD Referring Provider Ac tive Start: December 17, 2024 End: December 17, 2024 Mmi Teacher Relationship Specialty Start Date End Date Melquiades Quintanilla, INTELLECTUAL PROPERTY LAWYER.FINAL TOUCH UP PAINTER [address] [place], [place] [address] PCP - General Internal Medicine 01/03/23 Team Status: Active Member Role Status Dates Petty Vasquez NP-C Primary Care Provider Active Team Status: Inactive Member Role Status Dates Petty Vasquez WIND UP OPERATOR-C Primary Care Provider Active Start: December 17, 2024 End: December 17, 2024 Dr. Nella Ward MD Attending Provider Ac tive Start: December 17, 2024 End: December 17, 2024 Dr. Nella Ward MD Referring Provider Ac tive Start: December 17, 2024 End: December 17, 2024 Team Status: Inactive Member Role Status Dates Petty Lopezr , WIND UP OPERATOR-C Primary Care Provider Active Start: February 23, 2025 End: February 23, 2025 Petty Vasquez , WIND UP OPERATOR-C Referring Provider Active Start: February 23, 2025 End: February 23, 2025 SARINA Darnell Attending Provider Active Sta rt: February 23, 2025 End: February 23, 2025 Team Status: Inactive Member Role Status Dates Petty Vasquez WIND UP OPERATOR-C Primary Care Provider Active Start: March 01, 2025 End: March 01, 2025 Petty Vasquez , WIND UP OPERATOR-C Referring Provider Active Start: March 01, 2025 End: March 01, 2025 SARINA Darnell Attending Provider Active Sta rt: March 01, 2025 End: March 01, 2025 Goals (unrecognized section and content) Goals may be documented in a n alternate sectionGoals may be documented in an alternate sectionGoals may be documented in an alternate sectionGoals may be documented in an alternate section FOR RECORDS PERTAINING TO PATIENTS WHO ARE OR HAVE BEEN ENROLLED IN A CHEMICAL DEPENDENCY/SUBSTANCEABUSE PROGRAM, SOME INFORMATION MAY BE OMITTED. This clinical summary was aggregated from multiple sources. Caution should be exercised in using it in the provision of clinical care. This summary normalizes information from multiple sources, and as a consequence, information in this document may materially change the coding, format and clinical context of patient data. In addition, data may be omitted in some cases. CLINICAL DECISIONS SHOULD BE BASED ON THE PRIMARY CLINICAL RECORDS. [facility] [employer] [facility]. provides no warranty or guarantee of the accuracy or completeness of information in this document.
--- OUTSIDE RECORDS SUMMARY | 2025-04-08 00:07 | XMS RPT_ITS | CCD ---
Author Organization [facility] CliniSyva Care Team Providers Care Director Smb Sales Name Role Phone EUNICE CONNOR Unavailable Unavailable REFERRED, SELF Unavailable Unavailable MATTHEW, [...] Unavailable Unavailable CRISTA, ROSEANN PA Unavailable Unavailable Unavailable Primary Care Provider Unavailabl e DIPAK ROSE Referring Unavailable DIPAK ROSE Attending Unavailable DIPAK ROSE Referring Unavailable DUNCAN DUMONT Attending Unavailable DOMENICA KRISHNAN Referring Unavailable Carolann Matthew Primary Care Provider Carolann Matthew Primary Care Provider Dwight PLASTIC BATTERY ASSEMBLERMelquiades HEART Primary Care Provider ALIYA MCDANIELS Referring Unavailable MELQUIADES QUINTANILLA Primary Care Unavailable Care Physician, No Primary Primary Care Provider Unavailable Care Physician, No Primary Referring Provider Un available SARINA Mims Attending Provider Care Physician, No Primary Primary Care Provider Unavailable Care Physician, No Primary Referring Provider Un available SARINA Mims Attending Provider Melquiades Quintanilla APRN.CNP Primary Care Provider Carolann Matthew MD Primary Care Provider Ungerer CORE BAKER-C, CORE BAKERWanda Petty Primary Care Provider Sylvia NEAL, Dr. Caremn Attending Provid er Sylvia NEAL, Dr. Carmen [...] MELQUIADES QUINTANILLA CNP Primary Care Unavailable Ungerer CORE BAKER-C, Petty Primary Care Provider Ungerer CORE BAKER-C, Petty Referring Provider Tomás Davison Attending Provider [...] Referring Unavailable Ungerer, Petty Primary Care Unavailable Tomás Davison Attending Unavailable Medications Current Medications Medication [...] for 5 days. Take 1 tablet by [facility] twice daily for 7 days. Take 1 tablet by [facility] two times a day for 7 days. [...] Comment on above: Take 1 capsule by [facility] twice daily for 5 days. polyethylene glycol 3350 90318 mg powder for oral solution (1 source) [...] 25August 14, 2020 August 17, 2020 12:03am [id number] 200 actuat albuterol 0.09 mg/actuat metered dose [...] after antibiotic. KEEP REFRIGERATED lactobacillus rhamnosus gg [id number] unt oral capsule (20 sources) Start: 2020 End: 2023 take 1 capsule by mouth once daily lactobacillus rhamnosus (CULTURELLE) 10 billion cell capsule Take 1 capsule by mouth once daily. 30 capsule 01/15/2021 08/07/2024 Discontinued (Other) Comment on above: Take 1 capsule by mo uth once daily. levonorgestrel 0.916111 mg/hr intrauterine system (11 sources) Progestin, Progestin-containing [...] Office Visit Reporton 2024 Office Visit Report [facility] [address] [place] [address] OFFICE VISIT Date of Service: 03/01/25 MR#: [id number] Acct: [id number] Patient: EB HUI Rep #: [id number] 5 : 2000 Provider: SARINA Sanchez Age/Sex: 25/F Location: [facility] Status: Signed Intake Vital Signs 02/23/25 06:20 [...] Justice Signature: Date (if applicable) CC: Normal [facility] Office Visit Reporton 2024 Office Visit Report [facility] [address] [place] [address] OFFICE VISIT Date of Service: 02/23/25 MR#: [id number] Acct: [id number] Patient: EB HUI Rep #: [id number] 4 : 2000 Provider: SARINA Sanchez Age/Sex: 25/F Location[facility] Status: Signed Intake Vital Signs 12/17/24 [...] Justice Signature: Date (if applicable) CC: Normal [facility] URINE CULTURE [CCL]on 2024 Bacteria identified Cx Nom (U) URCUL See Results Below See Below CULTURE, URINE NORMAL UROGENITAL ZIGGY 50,000-<100,000 CFU/ml Normal urogenital ziggy SOURCE: Urine (Nonspecific) [address] [address] Marcos Shukla III, M.D. [id number] SEND TO IC NO Normal [facility] Comment on above: Performed By: #### 2 07020 #### [facility],[address] [place] [address] Bacteria Ur Culton 5 Bacteria identified Cx Nom (U) ORGANISM ID: 1 50,000-<100,000 CFU/ml Normal urogenital ziggy Normal [facility] Comment on above: Performed By: #### 6 30-4 ####[facility] LABCLIA [id number] [employer] [address] OF [facility] LYME AB PANEL WBLOT [CCL]on 01-15-2025 LYME AB PANEL WBLOT [CCL] Normal [facility] Comment on above: Result Comment: ly _ LYME AB PANEL WBLOT [CCL]_ SEE SCANNED REPORT Performed By: #### 2 71771 #### [address] [address] EBV AB TO VIRAL CAPSID ATIGE N,IgM [CCL]on 01-13-2025 EBV VCA IgM, Qual Negative Normal Negative [facility] Comment on above: Result Comment: No s erological evidence of recent EBV infection. [employer] [address] [place] [address] Marcos Shukla III, M.D. [id number] Performed By: #### 2 56391 #### [address] [address] LYME EARLY (SIGNS/SYMP <=30 DAYS) [CCL]on 01-13-2025 Lyme IgG IgM Ab Negative Normal Negative [facility] Comment on above: Result Comment: Rece nt infection with B. burgdorferi sensu lato cannot be excluded if the specimen collected within four weeks after the onset of signs and symptoms or within six weeks after a known tick exposure. Clinical and epidemiological correlation is required. [employer] [address] [employer] [place] [address] Marcos Shukla III, M.D. [id number] Performed By: #### 2 83896 #### [address] [address] VITAMIN D, 1,25 - DIHYDROXY [CCL]on 01-13-2025 Vit D,1,25 Dihydroxy 36.6 pg/mL Normal 19.9-79.3 [facility] Comment on above: Result Comment: [facility] [address] [place] [address] Marcos Shukla III, M.D. [id number] Performed By: #### 2 05440 #### [facility],[address] [place], [place] [address] 1,25-dihydroxyvitamin D3 [Ma ss/Vol]on 01-12-2025 VIT D1,25 DIHYDROXY 36.6 pg/mL Normal 19.9-79.3 [facility] [place] [facility] Comment on above: Order Comment: Speci men Type: BLOOD SPECIMENOrdering Facility: [facility] Address: [address] [place] [address] Performed By: #### 7 886-5, 1649-3, 61411-4, 76084-6 ####[facility] LABIA [id number] [place] [id number] [place] B. burgdorferi IgG and IgM p min (S)on 01-12-2025 B. burgdorferi IgG+IgM Qn (S) Negative Normal Negative [facility] Comment on above: Order Comment: Speci rodger Type: BLOOD SPECIMENOrdering Facility: [facility] Address: [address] [place] [address] Result Comment: Rece nt infection with B. burgdorferi sensu lato cannot be excluded if the specimen collected within four weeks after the onset of signs and symptoms or within six weeks after a known tick exposure. Clinical and epidemiological correlation is required. Performed By: #### 7 886-5, 1649-3, 34247-1, 93926-0 ####[facility] LABIA [id number] [address] [address] [place] B. burgdorferi IgG+IgM [...] be helpful. Clinical correlation is necessary. Normal [facility] Comment on above: Order Comment: Speci men Type: BLOOD SPECIMENOrdering Facility: [facility] Address: [address] [place] [address] Performed By: #### 7 886-5, 1649-3, 86865-8, 43763-0 ####[facility] LABIA [id number] [address] [address] [place] B. burgdorferi IgG band pattern IB (S) [Interp] No Bands Seen Normal [facility] Comment on above: Order Comment: Speci [facility] Type: BLOOD SPECIMENOrdering Facility: [facility] Address: [address] [place] [address] Performed By: #### 7 886-5, 1649-3, 46783-4, 66508-6 ####[facility] LABIA [id number] [address] [address] [place] B. burgdorferi IgG IB Ql (S) Negative Normal Negative [facility] Comment on above: Order Comment: Speci [facility] Type: BLOOD SPECIMENOrdering Facility: [facility] Address: [address] [place] [address] Result Comment: CDC criteria for a positive Western blot are the presence of >=5 bands for IgG. Performed By: #### 7 886-5, 1649-3, 33915-4, 21361-8 ####[facility] LABIA [id number] [address] [address] [place] B. burgdorferi IgM band pattern IB (S) [Interp] p-41 Normal [facility] Comment on above: Order Comment: Speci [facility] Type: BLOOD SPECIMENOrdering Facility: [facility] Address: [address], [place] [address] Result Comment: p-39 Performed By: #### 7 886-5, 1649-3, 85481-6, 05297-7 ####[facility] LABCLIA [id number] [address] B. burgdorferi IgM IB Ql (S) Positive Abnormal Negative [facility] Comment on above: Order Comment: Speci men Type: BLOOD SPECIMENOrdering Facility: [facility] Address: [address] [place] [address] Result Comment: CDC criteria for a positive Western Blot are the presence of >=2 bands for IgM. Performed By: #### 7 886-5, 1649-3, 04230-4, 55540-9 ####[facility] LABCLIA [id number] [address] [place] CBC + DIFFon 01-12-2025 Baso # 0.01 x10EE3/UL Normal 0.00 - 0.10 [facility] Comment on above: Performed By: #### 2 97360 #### [facility],[address] [place] [address] Basophils/100 WBC (Bld) 0.2 % Normal 0.0 - 2.0 [facility] Comment on above: Performed By: #### 2 74705 #### [facility],[address] [place] [address] CBC + DIFF Normal [facility] Comment on above: Result Comment: CBC- COMPLETE BLOOD COUNT Performed By: #### 2 05647 #### [facility],[address] [place] [address] EO # 0.02 x10EE3/UL Normal 0.00 - 0.50 [facility] Comment on above: Performed By: #### 2 00689 #### [facility],[address] [place] [address] Eosinophils/100 WBC (Bld) 0.4 % Normal 0.0 - 7.0 [facility] Comment on above: Performed By: #### 2 31071 #### [facility],[address] [place] [address] Erythrocyte distribution width (RBC) [Ratio] 12.5 % Normal 12.0 - 15.6 [facility] Comment on above: Performed By: #### 2 68936 #### [facility],[address] [place] [address] Hematocrit (Bld) [Volume fraction] 42.9 % Normal 34.0 - 46.0 [facility] Comment on above: Performed By: #### 2 77536 #### [facility],[address] [place] [address] Hemoglobin (Bld) [Mass/Vol] 15.0 g/dL Normal 12.0 - 16.0 [facility] Comment on above: Performed By: #### 2 68222 #### [place] [address] Lymph # 1.94 x10EE3/UL Normal 0.80 - 2.80 [facility] Comment on above: Performed By: #### 2 41709 #### [place] [address] Lymphocytes/100 WBC (Bld) 28.2 % Normal 20.0 - 45.0 [facility] Comment on above: Performed By: #### 2 68672 #### [place] [id number] MANUAL DIFF N/A Normal [facility] Comment on above: Performed By: #### 2 85337 #### [place] [address] MCH (RBC) [Entitic mass] 31 pg Normal 27 - 33 [facility] Comment on above: Performed By: #### 2 26718 #### [place] [address] MCHC 35 X10 3 Normal 32 - 36 [facility] Comment on above: Performed By: #### 2 52986 #### [facility],[address] [place] [address] MCV (RBC) [Entitic vol] 90 fL Normal 80 - 99 [facility] Comment on above: Performed By: #### 2 61023 #### [facility],[address] [place] [address] Bullock # 0.41 x10EE3/UL Normal 0.20 - 1.00 [facility] Comment on above: Performed By: #### 2 94960 #### [facility],[address] [place] [address] MONOS % 5.9 % Normal 0.0 - 10.0 [facility] Comment on above: Performed By: #### 2 87408 #### [facility],[address] [place] [address] Morphology Jez (Bld) [Interp] N/A Normal [facility] Comment on above: Performed By: #### 2 55771 #### [facility],[address] [place] [address] Neut # 4.48 x10EE3/UL Normal 1.50 - 7.10 [facility] Comment on above: Performed By: #### 2 11272 #### [facility],[address] [place] [address] Neutrophils/100 WBC (Bld) 65.4 % Normal 46.0 - 76.0 [facility] Comment on above: Performed By: #### 2 06030 #### [facility],[address] [place] [address] PLATELET 294 x10EE3/UL Normal 150 - 450 [facility] Comment on above: Performed By: #### 2 98669 #### [facility],[address] [place] [address] Platelet mean volume (Bld) [Entitic vol] 8.0 fL Normal 6.6 - 10.5 [facility] Comment on above: Result Comment: AUTO MATED DIFFERENTIAL Performed By: #### 2 72129 #### [facility],[address] [place] [address] RBC 4.78 x 10EE6/UL Normal 4.10 - 5.30 [facility] Comment on above: Performed By: #### 2 33331 #### [facility],[address] [place] [address] WBC 6.9 x 10EE3/UL Normal 4.5 - 10.8 [facility] Comment on above: Performed By: #### 2 66265 #### [facility],[address] [place], [place] [address] CMP with eGFRon 01-12-2025 AGE 24 years Normal [facility] Comment on above: Performed By: #### 2 68168 #### [facility],[address] [place], [place] [address] Albumin [Mass/Vol] 4.1 g/dL Normal 3.4 - 5.0 [facility] Comment on above: Performed By: #### 2 91608 #### [facility],[address] [place] [address] Albumin/Globulin [Mass ratio] 1.1 {ratio} Normal 0.9 - 1.6 [facility] Comment on above: Performed By: #### 2 97333 #### [facility],[address] [place] [address] ALK PHOS 53 U/L Normal 46 - 116 [facility] Comment on above: Performed By: #### 2 93602 #### [address] [address] ALT [Catalytic activity/Vol] 19 U/L Normal 16 - 63 [facility] Comment on above: Performed By: #### 2 37202 #### [facility],[address] [place] [address] Anion gap [Moles/Vol] 10 mmol/L Normal 10 - 20 [facility] Comment on above: Performed By: #### 2 63107 #### [facility],[address] [place] [address] AST [Catalytic activity/Vol] 14 U/L Normal 13 - 39 [facility] Comment on above: Performed By: #### 2 65756 #### [facility],[address] [place], [place] [address] B/C RATIO 18 ratio Normal 0 - 30 [facility] Comment on above: Performed By: #### 2 79342 #### [facility],[address] [place] [address] Bilirubin [Mass/Vol] 0.6 mg/dL Normal 0.2 - 1.0 [facility] Comment on above: Performed By: #### 2 19663 #### [facility],[address] [place], [place] [address] Calcium [Mass/Vol] 9.1 mg/dL Normal 8.5 - 10.1 [facility] Comment on above: Performed By: #### 2 68819 #### [facility],[address] [place] [address] Chloride [Moles/Vol] 102 mmol/L Normal 98 - 107 [facility] Comment on above: Performed By: #### 2 75879 #### [facility],[address] [place], [place] [address] CMP with eGFR Normal [facility] Comment on above: Result Comment: COMP REHENSIVE METABOLIC PANEL Performed By: #### 2 58914 #### [address] [address] CO2 [Moles/Vol] 30.0 mmol/L Normal 21.0 - 32.0 [facility] Comment on above: Performed By: #### 2 65697 #### [facility],[address] [place] [address] Creatinine [Mass/Vol] 0.77 mg/dL Normal 0.55 - 1.02 [facility] Comment on above: Performed By: #### 2 27888 #### [facility],[address] [place], [place] [address] GFR/1.73 sq M.predicted among non-blacks MDRD (S/P/Bld) [Vol rate/Area] mL/min/{1.73_m2} Normal 60 - 999 [facility] Comment on above: Performed By: #### 2 11407 #### [facility],[address] [place], [place] [address] Result Comment: ACCO RDING TO THE NATIONAL KIDNEY DISEASE EDUCATION PROGRAM(NKDE), A NORMAL eGFR IS A VALUE GREATER THAN OR EQUAL TO 60 ML/MIN/1.73 SQ METERS. CHRONIC KIDNEY DISEASE: <60mL/MIN/1.73 SQ METERS KIDNEY FAILURE: <15mL/MIN/1.73 SQ METERS THIS TEST SHOULD ONLY BE USED FOR PATIENTS 18 YEARS OF AGE AND OLDER. Globulin (S) [Mass/Vol] 3.8 g/dL Normal 1.5 - 3.8 [facility] Comment on above: Performed By: #### 2 70479 #### [place] [id number] Glucose [Mass/Vol] 81 mg/dL Normal 74 - 106 [facility] Comment on above: Performed By: #### 2 04140 #### [facility],[address] [place] [address] Potassium [Moles/Vol] 4.0 mmol/L Normal 3.5 - 5.1 [facility] Comment on above: Performed By: #### 2 26248 #### [address] [address] Protein [Mass/Vol] 7.9 g/dL Normal 6.4 - 8.2 [facility] Comment on above: Performed By: #### 2 89172 #### [facility],[address] [place] [address] Sodium [Moles/Vol] 138 mmol/L Normal 136 - 145 [facility] Comment on above: Performed By: #### 2 88042 #### [facility],[address] [place] [address] Urea nitrogen [Mass/Vol] 14 mg/dL Normal 7 - 18 [facility] Comment on above: Performed By: #### 2 12758 #### [facility],[address] [place] [address] EBV capsid IgM Qn (S)on 12-23 EBV VCA IGM, QUAL Negative Normal Negative [facility] Comment on above: Order Comment: Speci men Type: BLOOD SPECIMENOrdering Facility: [facility] Address: [address] [place] [address] Result Comment: No s erological evidence of recent EBV infection. Performed By: #### 7 886-5, 1649-3, 24069-7, 06207-3 ####[facility] LABCLIA [id number] [place] [address] [place] LIPID PROFILEon 01-12-2025 Cholesterol [Mass/Vol] 190 mg/dL Normal 0 - 240 [facility] Comment on above: Performed By: #### 2 97933 #### [facility],[address] [place] [address] Cholesterol in HDL [Mass/Vol] 47 mg/dL Normal 40 - 60 [facility] Comment on above: Performed By: #### 2 37624 #### [facility],[address] [place] [address] Cholesterol in LDL [Mass/Vol] 123 mg/dL Normal 0 - 129 [facility] Comment on above: Performed By: #### 2 19029 #### [facility],[address] [place] [address] Cholesterol.total/Ch olesterol in HDL [Mass ratio] 4.0 {ratio} Normal 0.0 - 5.0 [facility] Comment on above: Performed By: #### 2 19185 #### [facility],[address] [place], [place] [address] Lipid 1996 panel Normal [facility] Comment on above: Result Comment: LIPI D PROFILE Performed By: #### 2 24966 #### [facility],[address] [place] [address] Triglyceride [Mass/Vol] 101 mg/dL Normal 0 - 150 [facility] Comment on above: Performed By: #### 2 98892 #### [facility],[address] [place], [place] [address] CNPNon 12-23-2024 CNPN Telephone (OBGYWM) -- EB HUI ([id number]) 1 F Date Time Provider Department 12/23/24 NELLA JOHN OBBRIAN During your visit today, we recorded the following information about you: Nella John MD 12/23/2024 4:13 PM Signed Please notify patient that tissue is benign from [facility]. Allergies As of Date: 12/23/2024 (No [...] Status:Closed by JOLANTA DAY on 12/24/24 Normal [facility] Anion gap in Serum or Plasma Ordered By: Jamey Lilly on 12-17-2024 Anion gap [Moles/Vol] 9 mmol/L 5-15 [facility] BUN/creatinine ratioOrdered By: Jamey Lilly on 12-17-2024 Urea nitrogen/Creatinine [Mass ratio] 14.6 mg/mg 10- [facility] Basic Metabolic Profile (BMP )on 12-17-2024 BUN/CRE 14.6 RATIO Normal - [facility] Comment on above: Performed By: #### L 500.2500 #### [facility] [address] [place], [address] Calcium [Mass/Vol] 8.3 mg/dL Normal 7.6-11.0 [facility] Comment on above: Performed By: #### L 500.2500 #### [facility] [address] [place], [address] Chloride [Moles/Vol] 111 mmol/L High 98-108 [facility] Comment on above: Performed By: #### L 500.2500 #### [facility] [address] [place], [address] CO2 [Moles/Vol] 20.4 mmol/L Low 21.0-32.0 [facility] Comment on above: Performed By: #### L 500.2500 #### [facility] [address] [place], [address] Creatinine [Mass/Vol] 0.67 mg/dL Low 0.70-1.20 [facility] Comment on above: Performed By: #### L 500.2500 #### [facility] [address] [place], [address] ECRCL 121.21 ml/min Normal 50-250 [facility] Comment on above: Performed By: #### L 500.2500 #### [facility] [address] [place], [address] GAP 9 Normal 5-15 [facility] Comment on above: Performed By: #### L 500.2500 #### [facility] [address] [place], [address] GFR/1.73 sq M.predicted among non-blacks MDRD (S/P/Bld) [Vol rate/Area] 125 mL/min/{1.73_m2} Normal >60 [facility] Comment on above: Result Comment: mL/m in/1.73m2 CKD-EPI Creatinine Equation (2020) Performed By: #### L 500.2500 #### [facility] [address] [place], [address] Glucose [Mass/Vol] 99 mg/dL Normal 70-99 [facility] Comment on above: Performed By: #### L 500.2500 #### [facility] [address] [place], [address] Potassium [Moles/Vol] 3.8 mmol/L Normal 3.3-5.1 [facility] Comment on above: Performed By: #### L 500.2500 #### [facility] [address] [place], [address] Sodium [Moles/Vol] 140 mmol/L Normal 133-145 [facility] Comment on above: Performed By: #### L 500.2500 #### [facility] [address] [place], [address] Urea nitrogen [Mass/Vol] 10 mg/dL Normal 4-19 [facility] Comment on above: Performed By: #### L 500.2500 #### [facility] [address] [place], [address] Carbon dioxide, total [Moles /volume] in Central venous bloodOrdered By: Jamey Lilly on 12-17-2024 CO2 [Moles/Vol] 20.4 mmol/L Low 21.0-32.0 [facility] Chloride assayOrdered By: Diamond on 12-17-2024 Chloride [Moles/Vol] 111 mmol/L High 98-108 [facility] Discharge Instructionon 11-22 Discharge Instruction [facility] Medical Records Department [address] [place] [address] Instructions for Home/Discharge Instructions 12/17/24 1019 MR#: [id number] Acct: [id number] Name: EB HUI Rep #: [id number] : 2000 24 From: Nella Ward MD [...] if you need an appointment please call [phone] Test Results: Test results from this visit will be discussed in further detail at your follow-up appointment, if applicable. Discharge Plan Admission Attending Provider: Nella Ward Primary Care Provider: Petty Vasquez Instructions Print Language: Albanian Discharge Orders/Prescriptions Prescriptions: No Action alprazolam 0.5 mg tablet 0.5 mg PO PRN Other Ambulatory Orders: ,Urine (Routine) Timeframe: 20241217 Facility: [facility] - Location: Laboratory Ordered By: Dr. Jamey Lilly Referrals / Follow Up: Petty Vasquez NP-C [Primary Care Provider] - Disposition Disposition (needs filled in before D/C Order can be placed): Home, Self Care 12/17/24 1019 Nella Ward MD CC: CORE BAKER-C NP. Petty Vasquez Signed Normal [facility] Estimation of creatinine dora aranceOrdered By: Jamey Lilly on 12-17-2024 Estimated Creatinine Clearance Calc 121.21 ml/min 50-250 [facility] GFR/1.73 sq M.predicted juanita g non-blacks MDRD (S/P/Bld) [Vol rate/Area]Ordered By: Jamey Lilly on 12-17-2024 Estimated GFR (MDRD) Non-Af Amer 125 >60 [facility] Comment on above: mL/min/1.73m2 CKD-EP I Creatinine Equation (2020) Glomerular filtration rate ( GFR) estimation/1.73 sq m using serum, plasma, or whole bOrdered By: Jamey Lilly on 12-17-2024 GFR/1.73 sq M.predicted among non-blacks MDRD (S/P/Bld) [Vol rate/Area] 125 mL/min/{1.73_m2} >60 [facility] Comment on above: mL/min/1.73m2 CKD-EP I Creatinine Equation (2020) MR/POSTOP.ANEon 12-17-2024 MR/POSTOP.ANE [facility] Medical Records Department [address] [place] [address] Anesthesia Postop Eval I 12/17/24 1022 MR#: [id number] Acct: [id number] Name: EB HUI Rep #: [id number] : 2000 24 From: Eunice Pereira CRNA PCP: JEIMY Abrams Status:REG SDC Y Race: C Location: [place] [address] Anesthesia: Postop Eval I Current Vital Signs [...] CRNA Cosigner Signature: Date CC: Signed Normal [facility] MR/ESBTFEAM1ay 12-17-2024 MR/POSTOPAN2 [facility] Medical Records Department [address] [place] [address] Anesthesia Postop Eval II 12/17/242244 MR#: [id number] Acct: [id number] Name: EB HUI Rep #: [id number] : 2000 24 From: Jamey Lilly MD PCP: JEIMY Abrams Status:[facility] Y Race: C Location: [facility] [place] [place] Anesthesia Postop Eval I Sum Postop Eval Completion status Anesthesia document: Postop Eval 1 completed: Yes Anesthesia Postop Eval I Summary Anesthesia Postop Eval I Summary: Anesthesia Postop Eval I: Assessment Summary Airway patent Yes 12/17/24 10:31 REDUCING SALON ATTENDANT.HBARR Spontaneous unlabored Yes 12/17/24 10:31 REDUCING SALON ATTENDANT.HBARR respirations Mental status Awake,Calm 12/17/24 10:31 REDUCING SALON ATTENDANT.HBARR nausea No 12/17/24 10:31 REDUCING SALON ATTENDANT.HBARR Vomiting No 12/17/24 10:31 REDUCING SALON ATTENDANT.HBARR Anesthesia Postop Eval I: Fluid Summary Crystalloid volume administer 500 12/17/24 10:31 REDUCING SALON ATTENDANT.HBARR (ml) Colloids volume administered ( ml) Blood Product volume administered (ml) Total IV fluid infused 500 12/17/24 10:31 REDUCING SALON ATTENDANT.HBARR Anesthesia Postop Eval I: Summary Notes Anesthesia Complication No 12/17/24 10:31 REDUCING SALON ATTENDANT.HBARR Anesthesia Complication Comment: Post-operative progress note Anesthesia: Postop Eval II Evaluation Mental status: Awake and Calm Pain Level: 1 nausea: No Vomiting: No Complications Anesthesia Complication: No 12/17/242244 Date Jamey Kancherla MD Cosigner Signature: Date CC: Signed [facility] Operative Reporton 5 Operative Report [facility] Medical Records Department [address] [place] [address] Operative Report 12/17/24 1019 MR#: [id number] Acct: [id number] Name: EB HUI Rep #: [id number] : 2000 24 From: Nella Ward MD PCP: JEIMY Abrams Status:REG [facility] [place] [place] Location: [place] [address] Operative Report (Standard) Operative Information Date of Procedure: 12/17/24 Pre-Operative Diagnosis: AUB, Endometrial Polyp Post-Operative Diagnosis: same Surgery/Procedure Performed: Hysteroscopy, d C banquet chef: Yes Soldering Machine Operator Helper: Jono Matamoros MS3 Tasks completed by housekeeper/laundry assistant: Retracting Additional preschool assistant director?: No Type of Anesthesia: MAC RN Documented [...] anesthesia. She was then placed in the [facility] where she was prepped and draped in [...] 12/17/24 1021 Cosigner Signature (if applicable): CC: CORE BAKERMaik HUIZAR. Petty Vasquez; Dr Nella Ward MD Signed Normal [facility] Potassium (Unsp spec) [Mass/ Vol]Ordered By: Jamey [facility] 12-17-2024 Potassium [Moles/Vol] 3.8 mmol/L 3.3-5.1 [facility] Potassium measurement (mass/ volume)Ordered By: Jamey [facility] on 12-17-2024 Potassium (Unsp spec) [Mass/Vol] 3.8 mmol/L 3.3-5.1 [facility] ,Urineon 12-17-2024 Beta HCG ( test) Ql (U) Negative Normal [facility] Comment on above: Result Comment: Very dilute urine specimens, as indicated by a low specific gravity, may not contain outside industrial sales representative levels of hCG. If is still suspected, a first morning urine specimen should be collected 48 hours later and tested. Performed By: #### L 400.7600 #### [facility] Laboratory [address] [place], [address] Serum creatinine measurement (mass/volume)Ordered By: Jamey Lilly on 12-17-2024 Creatinine [Mass/Vol] 0.67 mg/dL Low 0.70-1.20 [facility] Serum glucose measurement (m ass/volume)Ordered By: Jamey Lilly on 12-17-2024 Glucose [Mass/Vol] 99 mg/dL 70-99 [facility] Serum or plasma calcium mckinley urement (mass/volume)Ordered By: Jamey Lilly on 12-17-2024 Calcium [Mass/Vol] 8.3 mg/dL 7.6-11.0 [facility] Serum or plasma urea nitroge n measurement (mass/volume)Ordered By: Jamey Lilly on 12-17-2024 Urea nitrogen [Mass/Vol] 10 mg/dL 4-19 [facility] Sodium levelOrdered By: Harshil Lilly on 12-17-2024 Sodium [Moles/Vol] 140 mmol/L 133-145 [facility] Surgery Specimen Level Sana 12-17-2024 Surgery Specimen Level IV Patient Age/Sex Location Account Attending Physician EB HUI / [facility] [place] [place] [id number] Dr Nella Ward, Specimen: [id number] Received: 12/17/24 Status: WALT Godoy Num: [id number] Spec Type: ENDOM BX/C Subm Dr: Dr [...] cm. Totally submitted in four cassettes.REE 12/17/2024 CPT:62253 Patient Age/Sex Location Account Attending Physician EB HUI [facility] [place] [place] [id number] Dr Nella Ward Signed (signature on file) Dr. Itzel Matthews MD 12/22/24 1314 Normal [facility] Comment on above: Performed By: #### P SUIV #### [facility] Laboratory [address] [place], [place] [address], [address] Urine testOrdered By: Nella Ward on 12-17-2024 HCG ( test) Ql (U) Negative [facility] Comment on above: Very dilute urine sp ecimens, as indicated by a low specificgravity, may not contain outside industrial sales representative levels of hCG. If is still suspected, a first morning urinespecimen should be collected 48 hours later and tested. CNOVon 12-16-2024 CNOV Office Visit (OBGYWM ) -- EB HUI ([id number]) 1 F Date Time Provider Department 12/16/24 [...] 12/19/2020 Oropharyngeal (more content not included)... Normal [facility] H AND P Exam - OB/GYN - H&P Exam - FIELD OPERATIONS SUPERVISOR [facility] Medical Records Department [address] [place] [address] H P Exam - FIELD OPERATIONS SUPERVISOR 12/16/24 1716 MR#: [id number] Acct: [id number] Name: EB HUI Rep #: [id number] : 2000 24 From: Nella Ward MD PCP: JEIMY Abrams Status:[facility] Location: [place] [address] History and Physical Date of Admission: 12/17/24 [...] medications and allergies Nella Hood MD 12/16/24 1389 Cosigner Signature (if applicable): CC: CORE BAKERNatalieC NP. Petty Vasquez; Dr Nella Ward MD Signed ADDENDUM by Dr Nella Ward, MD on 12/17/24 at 0839 Addendum I have examined the patient and the H P has been reviewed. There are no clinical changes since date of exam. 12/17/24 0839 Cosigner Signature (if applicable): cc: CORE BAKERNatalieC CORE BAKER. Petty Vasquez; Dr Nella Ward MD * Signed Normal [facility] HISTORY PHYSICALon HISTORY PHYSICAL HNO ID: [id number] Author: NELLA JOHN MD Service: ? Author [...] history, medications and allergies Nella Hood MD [facility] 10-30-2024 CNPN Telephone (OBGYWM) -- EB HUI ([id number]) 1 F Date Time Provider Department 10/30/24 PETTY RUBALCAVA During your visit today, we recorded the following information about you: Jolanta Day RN 10/30/2024 2:26 PM Signed Patient calling because she saw pelvic u/s results on [employer] and is concerned. Her f/u appt is [...] Status:Closed by ANGELINA GLORIA on 11/02/24 Normal [facility] US Pelvison 10-29-2024 Indication Abnormal uterine bleeding, [...] Read By: Jeanie Reynolds M.D. MATERNAL MEDICINE Radiology Study observation (narrative) [facility] 10-27-2024 [facility] Telephone ([facility]) -- EB HUI ([id number]) 1 F Date Time Provider Department 10/27/24 YORDAN SMALLS [facility] During your visit today, we recorded the following information about you: Yordan Smalls APRN.[facility] 10/27/2024 8:41 AM Signed I called [...] Status:Closed by YORDAN SMALLS on 10/27/24 Normal [facility] BACTERIAL VAGINOSIS NAATon 0 10-26-2024 Lactobacillus crispatus+gasseri+je nsenii + Gardnerella vaginalis + Atopobium vaginae rRNA SOL+probe Ql (Vag fld) Not detected Normal Not detected [facility] Comment on above: Order Comment: Speci men Type: SWABOrdering Facility: [facility] Address: [address] [place] [address] Performed By: #### C VTV, BVAMP ####[facility] LABCLIA [id number] [place] [address] [place] Bacteria Ur Culton 5 Bacteria identified Cx Nom (U) ORGANISM ID: 1 10,000 -<50,000 CFU/ml Normal urogenital ziggy Normal [facility] Comment on above: Performed By: #### 6 30-4 ####[facility] LABCLIA [id number] [place] [address] [place] C. trachomatis+N. gonorrhoea e DNA SOL+probe Ql (Unsp spec)on 10-26-2024 C. trachomatis rRNA SOL+probe Ql (Unsp spec) Detected Abnormal Not detected [facility] Comment on above: Order Comment: Speci men Type: SWABOrdering Facility: [facility] Address: [address] [place] [address] Performed By: #### 3 6902-5 ####[facility] LABIA [id number] [place] [address] [place] N. gonorrhoeae rRNA SOL+probe Ql (Unsp spec) Not detected Normal Not detected [facility] Comment on above: Order Comment: Speci men Type: SWABOrdering Facility: [facility] Address: [address] [place] [address] Performed By: #### 3 6902-5 ####[facility]PITALIA [id number] [place] [address] [place] RANCHO/TRICHOMONAS NAATon 0 10-26-2024 C. glabrata RNA SOL+probe Ql (Vag fld) Not detected Normal Not detected [facility] Comment on above: Order Comment: Speci men Type: SWABOrdering Facility: [facility] Address: [address] [place] [address] Performed By: #### C VTV, BVAMP ####[facility] LABRUT[facility] [id number] [place] [address] [place] Rancho sp DNA SOL+probe Ql (Vag fld) Not detected Normal Not detected [facility] Comment on above: Order Comment: Speci men Type: SWABOrdering Facility: [facility] Address: [address] [place] [address] Result Comment: The Rancho species group target includes C. albicans, C. tropicalis, C. parapsilosis, and C. dubliniensis. Performed By: #### C VTV, BVAMP ####[facility] LABCLIA [id number] [address] STATES OF [facility] T. vaginalis DNA SOL+probe Ql (Unsp spec) Not detected Normal Not detected [facility] Comment on above: Order Comment: Speci men Type: SWABOrdering Facility: [facility] Address: [address] [place] [address] Performed By: #### C VTV, BVAMP ####[facility] LABCLIA [id number] [place] [address] [place] CBC W Auto Differential pane l (Bld)on 10-26-2024 Basophils (Bld) [#/Vol] [facility] Basophils/100 WBC (Bld) 0.4 % Differential cell count method Nom (Bld) Auto Eosinophils (Bld) [#/Vol] 0.04 10*3/uL [facility] Eosinophils/100 WBC (Bld) 0.8 % Erythrocyte distribution width (RBC) [Ratio] 12.3 % 11.5 - 15.0 % Hematocrit (Bld) [Volume fraction] 40.4 % 36.0 - 46.0 % Hemoglobin (Bld) [Mass/Vol] 13.8 g/dL 11.5 - 15.5 g/dL Immature granulocytes (Bld) [#/Vol] [facility] Immature granulocytes/100 WBC (Bld) 0.2 % Lymphocytes (Bld) [#/Vol] 1.87 10*3/uL Lymphocytes/100 WBC (Bld) 35.4 % MCH (RBC) [Entitic mass] 30.8 pg 26.0 - 34.0 pg MCHC (RBC) [Mass/Vol] 34.2 g/dL 30.5 - 36.0 g/dL MCV (RBC) [Entitic vol] 90.2 fL 80.0 - 100.0 fL Monocytes (Bld) [#/Vol] 0.44 10*3/uL [facility] Monocytes/100 WBC (Bld) 8.3 % Neutrophils (Bld) [#/Vol] 2.90 10*3/uL Neutrophils/100 WBC (Bld) 54.9 % Nucleated RBC (Bld) [#/Vol] NINF Nucleated RBC/100 WBC (Bld) [Ratio] 0.0 % /100 WBC Platelet mean volume (Bld) [Entitic vol] 9.4 fL 9.0 - 12.7 fL Platelets (Bld) [#/Vol] 211 10*3/uL RBC (Bld) [#/Vol] 4.48 10*6/uL 3.90 - 5.2 0 m/uL WBC (Bld) [#/Vol] 5.28 10*3/uL [facility] Basophils (Bld) [#/Vol] 10*3/uL Normal <0.11 [facility] Comment on above: Order Comment: Speci men Type: BLOOD SPECIMENOrdering Facility: [facility] Address: [address] [place] [address] Performed By: #### 5 7021-8 ####[facility]ITALA [id number] [address] STATES OF [facility] Basophils/100 WBC (Bld) 0.4 % Normal [facility] Comment on above: Order Comment: Speci men Type: BLOOD SPECIMENOrdering Facility: [facility] Address: [address] [place] [address] Performed By: #### 5 7021-8 ####[facility] RIDGENCLIA [id number] [place] [address] [place] Differential cell count method Nom (Bld) Auto Normal [facility] Comment on above: Order Comment: Speci men Type: BLOOD SPECIMENOrdering Facility: [facility] Address: [address] [place] [address] Performed By: #### 5 7021-8 ####[facility]ENTERLIA [id number] [place] [address] [place] Eosinophils (Bld) [#/Vol] 0.04 10*3/uL Normal <0.46 [facility] Comment on above: Order Comment: Speci men Type: BLOOD SPECIMENOrdering Facility: [facility] Address: [address] [place] [address] Performed By: #### 5 7021-8 ####[facility] CENTERLIA [id number] [place] [address] [place] Eosinophils/100 WBC (Bld) 0.8 % Normal [facility] Comment on above: Order Comment: Speci men Type: BLOOD SPECIMENOrdering Facility: [facility] Address: [address] [place] [address] Performed By: #### 5 7021-8 ####[facility] RIDGENCAraceli [id number] [place] [address] [place] Erythrocyte distribution width (RBC) [Ratio] 12.3 % Normal 11.5-15.0 [facility] Comment on above: Order Comment: Speci men Type: BLOOD SPECIMENOrdering Facility: [facility] Address: [address] [place] [address] Performed By: #### 5 7021-8 ####[facility] RIDGENCLIAraceli [id number] [place] [address] [place] Hematocrit (Bld) [Volume fraction] 40.4 % Normal 36.0-46.0 [facility] Comment on above: Order Comment: Speci men Type: BLOOD SPECIMENOrdering Facility: [facility] Address: [address] [place] [address] Performed By: #### 5 7021-8 ####[facility] RIDGENCLIA [id number] [place] [address] [place] Hemoglobin (Bld) [Mass/Vol] 13.8 g/dL Normal 11.5-15.5 [facility] Comment on above: Order Comment: Speci men Type: BLOOD SPECIMENOrdering Facility: [facility] Address: [address] [place] [address] Performed By: #### 5 7021-8 ####[facility] [id number] [place] [address] [place] Immature granulocytes (Bld) [#/Vol] 10*3/uL Normal <0.10 [facility] Comment on above: Order Comment: Speci men Type: BLOOD SPECIMENOrdering Facility: [facility] Address: [address] [place] [address] Performed By: #### 5 7021-8 ####[facility] [id number] [place] [address] [place] Immature granulocytes/100 WBC (Bld) 0.2 % Normal [facility] Comment on above: Order Comment: Speci men Type: BLOOD SPECIMENOrdering Facility: [facility] Address: [address] [place] [address] Performed By: #### 5 7021-8 ####[facility] [id number] [place] [address] [place] Lymphocytes (Bld) [#/Vol] 1.87 10*3/uL Normal 1.00-4.00 [facility] Comment on above: Order Comment: Speci men Type: BLOOD SPECIMENOrdering Facility: [facility] Address: [address] [place] [address] Performed By: #### 5 7021-8 ####[facility] [id number] [place] [address] [place] Lymphocytes/100 WBC (Bld) 35.4 % Normal [facility] Comment on above: Order Comment: Speci men Type: BLOOD SPECIMENOrdering Facility: [facility] Address: [address] [place] [address] Performed By: #### 5 7021-8 ####[facility] MILLWNCLIA [id number] [address] STATES [facility] MCH (RBC) [Entitic mass] 30.8 pg Normal 26.0-34.0 [facility] Comment on above: Order Comment: Speci men Type: BLOOD SPECIMENOrdering Facility: [facility] Address: [address] [place] [address] Performed By: #### 5 7021-8 ####[facility] RIDGENCLIA [id number] [place] [address] [place] MCHC (RBC) [Mass/Vol] 34.2 g/dL Normal 30.5-36.0 [facility] Comment on above: Order Comment: Speci men Type: BLOOD SPECIMENOrdering Facility: [facility] Address: [address] [place] [address] Performed By: #### 5 7021-8 ####[facility] RIDGENCLIA [id number] [place] [address] [place] MCV (RBC) [Entitic vol] 90.2 fL Normal 80.0-100.0 [facility] Comment on above: Order Comment: Speci men Type: BLOOD SPECIMENOrdering Facility: [facility] Address: [address] [place] [address] Performed By: #### 5 7021-8 ####[facility]ENTERLIA [id number] [place] [address] [place] Monocytes (Bld) [#/Vol] 0.44 10*3/uL Normal <0.87 [facility] Comment on above: Order Comment: Speci men Type: BLOOD SPECIMENOrdering Facility: [facility] Address: [address] [place] [address] Performed By: #### 5 7021-8 ####[facility] [id number] [place] [address] [place] Monocytes/100 WBC (Bld) 8.3 % Normal [facility] Comment on above: Order Comment: Speci men Type: BLOOD SPECIMENOrdering Facility: [facility] Address: [address] [place] [address] Performed By: #### 5 7021-8 ####[facility] [id number] [place] [address] [place] Neutrophils (Bld) [#/Vol] 2.90 10*3/uL Normal 1.45-7.50 [facility] Comment on above: Order Comment: Speci men Type: BLOOD SPECIMENOrdering Facility: [facility] Address: [address] [place] [address] Performed By: #### 5 7021-8 ####[facility]GENCK[facility] [id number] [place] [address] [place] Neutrophils/100 WBC (Bld) 54.9 % Normal [facility] Comment on above: Order Comment: Speci men Type: BLOOD SPECIMENOrdering Facility: [facility] Address: [address] [place] [address] Performed By: #### 5 7021-8 ####[facility] [id number] [place] [address] [place] Nucleated RBC (Bld) [#/Vol] 10*3/uL Normal <0.01 [facility] Comment on above: Order Comment: Speci men Type: BLOOD SPECIMENOrdering Facility: [facility] Address: [address] [place] [address] Performed By: #### 5 7021-8 ####[facility]ENTERLIA [id number] [place] [address] [place] Nucleated RBC/100 WBC (Bld) [Ratio] 0.0 /100 WBC Normal [facility] Comment on above: Order Comment: Speci men Type: BLOOD SPECIMENOrdering Facility: [facility] Address: [address] [place] [address] Performed By: #### 5 7021-8 ####[facility] LEEANNE AURELIANONCYI [id number] [place] [address] [place] Platelet mean volume (Bld) [Entitic vol] 9.4 fL Normal 9.0-12.7 [facility] Comment on above: Order Comment: Speci men Type: BLOOD SPECIMENOrdering Facility: [facility] Address: [address] [place] [address] Performed By: #### 5 7021-8 ####[facility] RIDGENCPHILIPPA [id number] [place] [address] [place] Platelets (Bld) [#/Vol] 211 10*3/uL Normal 150-400 [facility] Comment on above: Order Comment: Speci men Type: BLOOD SPECIMENOrdering Facility: [facility] Address: [address] [place] [address] Performed By: #### 5 7021-8 ####[facility] RIDGENCLIA [id number] [place] [address] [place] RBC (Bld) [#/Vol] 4.48 10*6/uL Normal 3.90-5.20 [facility] Comment on above: Order Comment: Speci men Type: BLOOD SPECIMENOrdering Facility: [facility] Address: [address] [place] [address] Performed By: #### 5 7021-8 ####[facility] RIDGENCLIA [id number] [place] [address] [place] WBC (Bld) [#/Vol] 5.28 10*3/uL Normal 3.70-11.00 [facility] Comment on above: Order Comment: Speci men Type: BLOOD SPECIMENOrdering Facility: [facility] Address: [facility] [place] [address] Performed By: #### 5 7021-8 ####[facility] LEEANNE LIU [id number] [place] [id number] [place] CNOVon 10-26-2024 CNOV Office Visit (UCWSTR ) -- HUI,EB Parker ([id number]) 1 F Date Time Provider Department 10/26/24 2:45 PM YORDAN SMALLS [facility] During your visit today, we recorded the following information about you: Temperature Pulse Respiration Blood pressure 98.2 degrees 60/minute 16/minute 122/72 Weight 71.1 kg Yordan Smalls APRN.TOOL REPAIRER BENCH 10/26/2024 3:28 PM Signed CC: Patient presents [...] NAAT Self swab Other swabs ordered with ob/gyn nurse If anything is positive please treat.. Potential red flag symptoms discussed with the patient. Reviewed appropriate action plan to take if red flag symptoms occur. Patient agreeable to treatment plan. Yordan Smalls APRN.TOOL REPAIRER BENCH Allergies As of Date: 10/26/2024 (No Known Allergies) Date Reviewed: 10/26/2024 Reviewed by: Gillian Flores MA - Fully Assessed Reason for Visit: Urinary Frequency [1086] Cmt: burning with urination x 4 days Primary Visit Diagnosis:Urinary frequency [R35.0] Other Visit Diagnosis:Unprotected sex [Z72.51] Order(s):UA DIP, URINE (POC) [4573223] Order #: [id number]. #:[id number] 1-LAB BACTERIAL CULTURE, URINE [SQURCUL] Order #: [id number]. #:[id number] GONORRHEA/CHLAMYDIA NAAT [SQGCCT] Order #: [id number]. #:[id number] Prescriptions as of 10/26/2024 - amphetamine-dextroamphetam ine [...] [O14.13] 07/08/2019 (more content not included)... Normal [facility] CNOV Office Visit (OBGYWM ) -- EB HUI ([id number]) 1 F Date Time Provider Department 10/26/24 [...] L1 SAB0 IAB0 Ectopic0 Multiple0 Live Births1 Customer Loyalty Representative History LMP: 10/08/2024, Having periods Age at Menarche: 12 Age at First : Age at Menopause: Customer Loyalty Representative History Comments: Sexual Activity: Yes; Male Contraception: [...] discussed with the Patient or Patient's Authorized Cost Engineer. As applicable, any other physician, advance practice provider, medical student, or other health professional student that will be observing or involved in the sensitive examination for educational or training purposes was discussed with the Patient or Authorized Cost Engineer. The Patient or Authorized Cost Engineer has agreed to proceed with the sensitive [...] external genitalia normal, normal Bartholin's glands, urethra, Crucible's glands, no vulvar lesions, no cervical lesions, [...] up for (more content not included)... Normal [facility] DHEA-S BLDon 10-26-2024 DHEA-S [Mass/Vol] 264.1 ug/dL Normal 148.0-407.0 [facility] Comment on above: Order Comment: Speci men Type: BLOOD SPECIMENOrdering Facility: [facility] Address: [address] [place] [address] Result Comment: Refe rence ranges are age and gender specific. For additional information, reference range tables can be found in the laboratory test directory. The normal values are based on the following source: Dehydroepiandrosterone sulfate (DHEA S) [package insert V 17.0 Albanian]. [facility], [place], [place]: April 2013. Performed By: #### 2 842-3, 3016-3, DHEAS ####[facility] LABCLIA [id number] [place] [address] [place] HbA1c (Bld)on 10-26-2024 Average glucose Estimated from glycated hemoglobin (Bld) [Mass/Vol] 94 mg/dL Normal [facility] Comment on above: Order Comment: Speci men Type: BLOOD SPECIMENOrdering Facility: [facility] Address: [address] [place] [address] Result Comment: eAG: (Estimated average glucose) is a calculated value from HgbA1c and is outside industrial sales representative of the average blood glucose level in the last 2-3 month period. Performed By: #### 5 5454-3 ####[facility] LABCLIA [id number] [place] [address] [place] HbA1c (Bld) [Mass fraction] 4.9 % Normal 4.3-5.6 [facility] Comment on above: Order Comment: Speci men Type: BLOOD SPECIMENOrdering Facility: [facility] Address: [address] [place] [address] Result Comment: Alexis ican Diabetes Association guidelines indicate that patients with HgbA1c in the range 5.7-6.4% are at increased risk for development of diabetes, and intervention by lifestyle modification may be beneficial. HgbA1c greater or equal to 6.5% is considered diagnostic of diabetes. Performed By: #### 5 5454-3 ####[facility]CLIA [id number] [address] PAP TESTon 10-26-2024 ADEQUACY Satisfactory for interpretation. Normal [facility] Comment on above: Order Comment: Speci men Type: FLUID SPECIMENOrdering Facility: [facility] Address: [address] [place] [address] Performed By: #### L [id number] ####[facility] [id number] [address] LABCLIA [id number] [address] OF [facility] CASE REPORT Normal [facility] Comment on above: Order Comment: Speci men Type: FLUID SPECIMENOrdering Facility: [facility] Address: [address] [place] [address] Result Comment: Gyne cologic Cytology Report Case: [id number] Authorizing Provider: Petty Rubalcava APRN.CNM Collected: 10/26/2024 09:22 AM Ordering Location: OB/Gynecology Received: 10/26/2024 09:40 AM First Screen: Melissa, Jaci, CT, ASCP Specimen: Pap Test, ThinPrep, Cervix Performed By: #### L [id number] ####[facility] [id number] [address] LABCLIA [id number] [place] [address] [place] CLINICAL HISTORY, CYTOLOGY, TODDLER TEACHER Routine Exam Normal [facility] Comment on above: Order Comment: Speci men Type: FLUID SPECIMENOrdering Facility: [facility] Address: [address] [place] [address] Performed By: #### L [id number] ####[facility]ORYCLIA [id number] [place] [id number] [facility] LABCLIA [id number] [address] [place] FINAL PERFORMING LAB Normal [facility] Comment on above: Order Comment: Speci men Type: FLUID SPECIMENOrdering Facility: [facility] Address: [address] [place] [address] Result Comment: Tech nical component, riding instructor screening performed at [facility], [address] [place], [place] [id number] CLIA# [id number] Diagnostic interpretation performed at [facility], [address] [place] [address] CLIA# [id number] Outsole Compressor: Bethel King M.D. Performed By: #### L [id number] ####[facility] [id number] [place] [id number] [facility] LABCLIA [id number] [address] OF [place] INTERPRETATION, CYTOLOGY, TODDLER TEACHER Normal [facility] Comment on above: Order Comment: Speci men Type: FLUID SPECIMENOrdering Facility: [facility] Address: [address] [place] [address] Result Comment: Nega tive for intraepithelial lesion or malignancy. Performed By: #### L [id number] ####[facility] [id number] [place] [id number] [facility] LABCLIA [id number] [place] [address] [place] LMP 10/08/2024 Normal [facility] Comment on above: Order Comment: Speci men Type: FLUID SPECIMENOrdering Facility: [facility] Address: [address] [place] [address] Performed By: #### L [id number] ####[facility]ORY[facility]IA [id number] [place] [id number] [facility] LABCLIA [id number] [place] [address] [place] PAP DISCLAIMER COMMENT The Pap Smear is a screening test for cervical cancer. False negative results occur with all screening tests, emphasizing the need for rescreening at recommended intervals, and clinical correlation. Normal [facility] Comment on above: Order Comment: Speci men Type: FLUID SPECIMENOrdering Facility: [facility] Address: [address] [place] [address] Performed By: #### L [id number] ####[facility]ORYCLIA [id number] [address] LABCLIA [id number] [place] [address] [place] PAP PASTER HAT LINING COMMENT This specimen has be en analyzed by the ThinPrep Imaging System, an automated imaging and review system, which assists the laboratory in evaluating cells on ThinPrep Pap tests. Following automated imaging, selected hood from every slide are reviewed by a riding instructor. Normal [facility] Comment on above: Order Comment: Speci men Type: FLUID SPECIMENOrdering Facility: [facility] Address: [address] [place] [address] Performed By: #### L [id number] ####[facility]ORYCLIA [id number] [place] [id number] [facility] LABCLIA [id number] [place] [address] [place] [facility] Prolactin [Mass/Vol] 9.6 ng/mL Normal 4.4-33.8 [facility] Comment on above: Order Comment: Speci men Type: BLOOD SPECIMENOrdering Facility: [facility] Address: [address] [place] [address] Result Comment: Prol actin test is performed using the [facility] Electrochemiluminescence Immunoassay method. Results obtained with different methods or kits cannot be used interchangeably. Performed By: #### 2 842-3, 3016-3, DHEAS ####[facility] LABCLIA [id number] [facility] [id number] [address] [place] TESTOSTERONE, FREE AND TOTAL , BY EQUILIBRIUM ULTRAFILTRATION MASS SPECTROMETRYon 10-26-2024 Testosterone [Mass/Vol] 20.9 ng/dL Normal 10.0-55.0 [facility] Comment on above: Order Comment: Speci men Type: BLOOD SPECIMENOrdering Facility: [facility] Address: [address] [place] [address] Performed By: #### T FTEST ####[facility] LABCLIA [id number] [place] [address] Testosterone Free [Mass/Vol] 0.45 ng/dL Normal 0.10-0.85 [facility] Comment on above: Order Comment: Speci men Type: BLOOD SPECIMENOrdering Facility: [facility] Address: [address] [place] [address] Performed By: #### T FTEST ####[facility]CLIA [id number] [place] [address] Testosterone Free/Testosterone.to katie [Mass fraction] 2.16 % Normal 0.50-2.80 [facility] Comment on above: Order Comment: Speci men Type: BLOOD SPECIMENOrdering Facility: [facility] Address: [address] [place] [address] Performed By: #### T FTEST ####[facility]CLIA [id number] [place] [address] TSH SerPl-aCncon 10-26-2024 TSH Qn 0.651 m[IU]/L Normal 0.270-4.200 [facility] Comment on above: Order Comment: Speci men Type: BLOOD SPECIMENOrdering Facility: [facility] Address: [address], [place] [address] Result Comment: If t he patient is , TSH reference range varies by gestational period: First Trimester (weeks 9-12): 0.180-2.990 mIU/L Second Trimester: 0.110-3.980 mIU/L Third Trimester: 0.480-4.710 mIU/L Yaniv Rivera et al. A Practical Approach for the Verifications and Determination of Site- and Trimester-Specific Reference Intervals for Thyroid Function tests in . Thyroid, 2019:29:3:412-420. Derek Liu, et al. 2017 Guidelines of the [place] Thyroid Association for the Diagnosis and Management of Thyroid Disease during and the . Thyroid, 2017:27:3:315-389. Performed By: #### 2 842-3, 3016-3, DHEAS ####[facility] LABCLIA [id number] [facility] [id number] [place] [address] [place] UA DIP, URINE (POC)on 2024 BILIRUBIN UA (POCT) Negative Negative Dustin [facility] CLARITY UA (POCT) Clear [facility] COLOR UA (POCT) Yellow GLUCOSE UA (POCT) Negative Negative mg/dL [facility] Hemoglobin Ql (U) Negative Negative [facility] KETONE UA (POCT) Negative Negative mg/dL [facility] LEUKOCYTES UA (POCT) Negative Negative [facility] NITRITE UA (POCT) Negative Negative [facility] PH UA (POCT) 6.0 4.5 - 8.0 Protein Ql (U) Negative Negative mg/dL [facility] SPECIFIC GRAVITY UA (POCT) 1.025 1.005 - 1.030 UROBILINOGEN UA (POCT) 0.2 Normal E.U./dL Location:[address], [place], [place], [id number] [place] [address] POINT OF CARE CNOVon 08-07-2024 CNOV Office Visit (OBGYWM ) -- EB HUI ([id number]) 1 F Date Time Provider Department 08/07/24 [...] L1 SAB0 IAB0 Ectopic0 Multiple0 Live Births1 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 As applicable, any other physician, advance practice provider, medical student, or other health professional student that will be observing or involved in the sensitive examination for educational or training purposes was discussed with the Patient or Authorized Cost Engineer. The Patient or Authorized Cost Engineer has agreed to proceed with the sensitive [...] knee [M23 (more content not included)... 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 Allergies No Known Allergies Allergy (Verified 04/06/24 17:11) [facility] Surgical History History of tonsillectomy and adenoidectomy [...] Justice Signature: Date (if applicable) CC: Normal [facility] Abdomen/Pelvis W IV Cont ONL Yon 04-06-2024 Abdomen/Pelvis W IV Cont ONLY [facility] Imaging Services [address] [place] [address] Abdomen/Pelvis W IV Cont ONLY MR#: [id number] Acct: [id number] Name: EB HUI EILEEN Rep #: [id number] : 2000 F 24 From: Richie Nunez PCP: JEIMY Abrams Status: REG ER Study: Abdomen/Pelvis W IV Cont ONLY Date of Exam: Exam# [id number] Ordering Dr: Harish Vela DO [id number] INDICATION: rlq pain EXAMINATION: CT ABDOMEN AND [...] MD at 20:12 EDT , CC: JEIMY Vasquez; Dr. Harish Vela DO Window Trimmer Apprentice: Signed Normal [facility] CBC W/Diff, Automatedon 07- Absolute Lymph 2.45 X10 3/uL Normal 0.83-4.51 [facility] Comment on above: Performed By: #### L 100.0100, L700.6800, L500.4050 #### [facility] Laboratory [address] [place], [address] Absolute Neut 4.4 X10 3/uL Normal 2.0-7.7 [facility] Comment on above: Performed By: #### L 100.0100, L700.6800, L500.4050 #### [facility] [address] [place], [address] Basophils/100 WBC (Bld) 0.3 % Normal 0-1 [facility] Comment on above: Performed By: #### L 100.0100, L700.6800, L500.4050 #### [facility] [address] [place], [address] Eosinophils/100 WBC (Bld) 0.8 % Normal 0-5 [facility] Comment on above: Performed By: #### L 100.0100, L700.6800, L500.4050 #### [facility] [address] [place], [address] Erythrocyte distribution width (RBC) [Ratio] 12.7 % Normal 11.6-14.6 [facility] Comment on above: Performed By: #### L 100.0100, L700.6800, L500.4050 #### [facility] [address] [place], [address] Hematocrit (Bld) [Volume fraction] 39.1 % Normal 37-47 [facility] Comment on above: Performed By: #### L 100.0100, L700.6800, L500.4050 #### [facility] [address] [place], [address] Hemoglobin (Bld) [Mass/Vol] 13.3 g/dL Normal 12.0-15.0 [facility] Comment on above: Performed By: #### L 100.0100, L700.6800, L500.4050 #### [facility] [address] [place], [address] IG% 0.100 Normal 0.0-0.9 [facility] Comment on above: Result Comment: IG% - Immature Granulocytes (promyelocytes, myelocytes and metamyelocytes) > 1% indicates that a LEFT SHIFT is Present. Performed By: #### L 100.0100, L700.6800, L500.4050 #### [facility] [address] [place], [address] Lymphocytes/100 WBC (Bld) 32.9 % Normal 19-41 [facility] Comment on above: Performed By: #### L 100.0100, L700.6800, L500.4050 #### [facility] [address] [place], [address] MCH (RBC) [Entitic mass] 31.1 pg Normal 27.0-32.0 [facility] Comment on above: Performed By: #### L 100.0100, L700.6800, L500.4050 #### [facility] [address] [place], [address] MCHC (RBC) [Mass/Vol] 34.0 g/dL Normal 32-36 [facility] Comment on above: Performed By: #### L 100.0100, L700.6800, L500.4050 #### [facility] [address] [place], [address] MCV (RBC) [Entitic vol] 91.4 fL Normal 81-99 [facility] Comment on above: Performed By: #### L 100.0100, L700.6800, L500.4050 #### [facility] [address] [place], [address] Monocytes/100 WBC (Bld) 7.3 % Normal 0-10 [facility] Comment on above: Performed By: #### L 100.0100, L700.6800, L500.4050 #### [facility] [address] [place], [address] Neutrophils/100 WBC (Bld) 58.6 % Normal 47-70 [facility] Comment on above: Performed By: #### L 100.0100, L700.6800, L500.4050 #### [facility] [address] [place], [address] Nucleated RBC (Bld) [#/Vol] 0 10*3/uL Normal 0-5 [facility] Comment on above: Performed By: #### L 100.0100, L700.6800, L500.4050 #### [facility] [address] [place], [address] Platelet mean volume (Bld) [Entitic vol] 9.4 fL Normal 6.2-12.0 [facility] Comment on above: Performed By: #### L 100.0100, L700.6800, L500.4050 #### [facility] [address] [place], [address] Platelets (Bld) [#/Vol] 246 10*3/uL Normal 150-450 [facility] Comment on above: Performed By: #### L 100.0100, L700.6800, L500.4050 #### [facility] [address] [place], [address] RBC (Bld) [#/Vol] 4.28 10*6/uL Normal 4.2-5.4 [facility] Comment on above: Performed By: #### L 100.0100, L700.6800, L500.4050 #### [facility] [address] [place], [address] RDW SD 42.1 fl Normal 35.1-43.9 [facility] Comment on above: Performed By: #### L 100.0100, L700.6800, L500.4050 #### [facility] [address] [place], [address] WBC (Bld) [#/Vol] 7.4 10*3/uL Normal 4.4-11.0 [facility] Comment on above: Performed By: #### L 100.0100, L700.6800, L500.4050 #### [facility] [address] [place], [address] Comprehensive Metabolic Prof [facility] 04-06-2024 Albumin [Mass/Vol] 2.7 g/dL Low 3.2-5.0 [facility] Comment on above: Performed By: #### L 100.0100, L700.6800, L500.4050 #### [facility] [address] [place], [address] Albumin/Globulin [Mass ratio] 1.1 {ratio} Normal 0.9-2.4 [facility] Comment on above: Performed By: #### L 100.0100, L700.6800, L500.4050 #### [facility] [address] [place], [address] ALK P 38 U/L Low 45-117 [facility] Comment on above: Performed By: #### L 100.0100, L700.6800, L500.4050 #### [facility] [address] [place], [address] ALT [Catalytic activity/Vol] 18 U/L Normal 13-56 [facility] Comment on above: Performed By: #### L 100.0100, L700.6800, L500.4050 #### [facility] [address] [place], [address] AST [Catalytic activity/Vol] 11 U/L Low 15-37 [facility] Comment on above: Performed By: #### L 100.0100, L700.6800, L500.4050 #### [facility] [address] [place], [address] Bilirubin [Mass/Vol] 0.20 mg/dL Normal 0.20-1.00 [facility] Comment on above: Result Comment: For patients on eltrombopag therapy, use of Dimension [place] TBIL is not recommended. Performed By: #### L 100.0100, L700.6800, L500.4050 #### [facility] [address] [place], [address] BUN/CRE 21.1 RATIO High 10-20 [facility] Comment on above: Performed By: #### L 100.0100, L700.6800, L500.4050 #### [facility] [address] [place], [address] CA,Total 6.6 mg/dL Low 8.5-10.1 [facility] Comment on above: Performed By: #### L 100.0100, L700.6800, L500.4050 #### [facility] [address] [place], [address] Chloride [Moles/Vol] 117 mmol/L High 98-107 [facility] Comment on above: Performed By: #### L 100.0100, L700.6800, L500.4050 #### [facility] [address] [place], [address] CO2 [Moles/Vol] 19.0 mmol/L Low 21.0-32.0 [facility] Comment on above: Performed By: #### L 100.0100, L700.6800, L500.4050 #### [facility] [address] [place], [address] Creatinine [Mass/Vol] 0.52 mg/dL Low 0.55-1.02 [facility] Comment on above: Result Comment: The validity of the calculated GFR GFRAA in patients over 70 years has not been determined. Clinical correlation is essential. Performed By: #### L 100.0100, L700.6800, L500.4050 #### [facility] [address] [place], [address] EST GFR - AA 185 mL/min Normal >60 [facility] Comment on above: Result Comment: Afri can [place] GFR Calc Performed By: #### L 100.0100, L700.6800, L500.4050 #### [facility] [address] [place], [address] GAP 8 Normal 5-15 [facility] Comment on above: Performed By: #### L 100.0100, L700.6800, L500.4050 #### [facility] [address] [place], [address] GFR/1.73 sq M.predicted among non-blacks MDRD (S/P/Bld) [Vol rate/Area] 153 mL/min/{1.73_m2} Normal >60 [facility] Comment on above: Result Comment: Non- GFR Calc Performed By: #### L 100.0100, L700.6800, L500.4050 #### [facility] [address] [place], [address] Globulin (S) [Mass/Vol] 2.5 g/dL Normal 2.2-4.2 [facility] Comment on above: Performed By: #### L 100.0100, L700.6800, L500.4050 #### [facility] [address] [place], [address] Glucose [Mass/Vol] 76 mg/dL Normal 74-106 [facility] Comment on above: Performed By: #### L 100.0100, L700.6800, L500.4050 #### [facility] [address] [place], [address] Potassium [Moles/Vol] 2.8 mmol/L Low 3.5-5.1 [facility] Comment on above: Performed By: #### L 100.0100, L700.6800, L500.4050 #### [facility] [address] [place], [address] Sodium [Moles/Vol] 144 mmol/L Normal 136-145 [facility] Comment on above: Performed By: #### L 100.0100, L700.6800, L500.4050 #### [facility] [address] [place], [address] T PROT 5.2 g/dL Low 6.4-8.2 [facility] Comment on above: Performed By: #### L 100.0100, L700.6800, L500.4050 #### [facility] [address] [place], [address] Urea nitrogen [Mass/Vol] 11 mg/dL Normal 7-18 [facility] Comment on above: Performed By: #### L 100.0100, L700.6800, L500.4050 #### [facility] [address] [place], [address] Emergency Department Summary on 04-06-2024 Emergency Department Summary [facility] Medical Records Department [address] [place] [address] Emergency Department Summary 04/06/24 MR#: [id number] Acct: [id number] Name: EB HUI Rep #: [id number] : 2000 24 From: Harish Vela DO [...] is no (more content not included)... Normal [facility] ,Serum,hCG Quali.on 04-06-2024 HCG, SERUM QUAL Negative Normal [facility] Comment on above: Performed By: #### L 100.0100, L700.6800, L500.4050 #### [facility] Laboratory [address] [place], [address] Urinalysis, Completeon 04-06 BACTERIA 1+ /hpf Normal None Seen [facility] Comment on above: Order Comment: GUERLINE CTOR TO SPECIFY Performed By: #### L 400.0001 #### [facility] Laboratory [address] [place], [address] EPI,SQUAMOUS 0-5 SEEN Normal 5-10 [facility] Comment on above: Order Comment: GUERLINE CTOR TO SPECIFY Performed By: #### L 400.0001 #### [facility] [address] [place], [address] Mucus Ql (Urine sed) 0 SEEN Normal [facility] Comment on above: Order Comment: GUERLINE CTOR TO SPECIFY Performed By: #### L 400.0001 #### [facility] [address] [place], [address] RBC 0 SEEN Normal 0-5 [facility] Comment on above: Order Comment: GUERLINE CTOR TO SPECIFY Performed By: #### L 400.0001 #### [facility] [address] [place], [address] WBC 0 SEEN Normal 0-5 [facility] Comment on above: Order Comment: GUERLINE CTOR TO SPECIFY Performed By: #### L 400.0001 #### [facility] [address] [place], [address] UA DIP, URINE (POC)on 2023 BILIRUBIN UA (POCT) Negative Negative [facility] CLARITY UA (POCT) Cloudy [facility] COLOR UA (POCT) Yellow GLUCOSE UA (POCT) Negative Negative mg/dL [facility] Hemoglobin Ql (U) Trace-intact Abnormal Negative Dustin [facility] KETONE UA (POCT) Negative Negative mg/dL [facility] LEUKOCYTES UA (POCT) Moderate Abnormal [facility] ([facility]) Negative Negative [facility] PH UA (POCT) 7.0 4.5 - 8.0 Protein Ql (U) Negative Negative mg/dL [facility] SPECIFIC GRAVITY UA (POCT) 1.020 1.005 - 1.030 UROBILINOGEN UA (POCT) 0.2 E.U./dL Normal E.U./dL STREP A MOLECULAR (POC)on Procedural Control Valid [facility] Strep A (POCT) Negative Negative XR CHEST 2V FRONTAL/LATon XR Chest PA and Lateralon IMPRESSION: No acute radiographic abnormality. Window Trimmer Apprentice: PSCChristine Transcribe Date/Time: Jul 16 2023 8:01P Dictated by : MAURICIO BUTTS MD This examination was interpreted and the report reviewed and electronically signed by: MAURICIO BUTTS MD on Jul 16 2023 8:02PM [facility] DIVISION OF RADIOLOGY * * *Final Report* [...] thorax appear intact. DIVISION OF RADIOLOGY Provider, [facility] - 07/16/2023 * * *Final Report* * [...] intact. IMPRESSION IMPRESSION: No acute radiographic abnormality. Window Trimmer Apprentice: PSCB Transcribe Date/Time: Jul 16 2023 8:01P Dictated by : MAURICIO BUTTS MD This examination was interpreted and the report reviewed and electronically signed by: MAURICIO BUTTS MD on Jul 16 2023 8:02PM EST Radiology Study observation (narrative) XR Chest PA and LateralOrder ed By: [facility] Provider on 07-16-2023 Absolute lymphocyte countOrd ered By: Christian Callahan on 06-12-2023 Lymphocytes Auto (Unsp spec) [#/Vol] 3.16 10*3/uL 0.83-4.51 [facility] Basophil percentageOrdered B y: Christian Callahan on 06-12-2023 Basophils/100 WBC (Bld) 0.2 % 0-1 [facility] Chloride [Moles/Vol] 107 mmol/L 98-107 [facility] Eosinophils/100 WBC (Bld) 0.2 % 0-5 [facility] Glucose [Mass/Vol] 93 mg/dL 74-106 [facility] Neutrophils (Bld) [#/Vol] 4.6 10*3/uL 2.0-7.7 [facility] Neutrophils/100 WBC (Bld) 53.4 % 47-70 [facility] Potassium [Moles/Vol] 3.6 mmol/L 3.5-5.1 [facility] Sodium [Moles/Vol] 138 mmol/L 136-145 [facility] WBC (Bld) [#/Vol] 8.7 10*3/uL 4.4-11.0 [facility] Blood erythrocytes count (nu mber/volume)Ordered By: Christian Callahan on 06-12-2023 RBC (Bld) [#/Vol] 4.87 10*6/uL 4.2-5.4 [facility] Blood hemoglobin measurement (mass/volume)Ordered By: Christian Callahan on 06-12-2023 Hemoglobin (Bld) [Mass/Vol] 14.7 g/dL 12.0-15.0 [facility] Blood lymphocytes/100 leukoc ytesOrdered By: Christian Callahan on 06-12-2023 Lymphocytes/100 WBC (Bld) 36.3 % 19-41 [facility] Blood monocytes/100 leukocyt esOrdered By: [facility] Call[facility] on 06-12-2023 Monocytes/100 WBC (Bld) 9.7 % 0-10 [facility] Blood platelet mean volumeOr dered By: Christian Callahan on 06-12-2023 Platelet mean volume (Bld) [Entitic vol] 9.6 fL 6.2-12.0 [facility] Determination of erythrocyte mean corpuscular volume (MCV)Ordered By: Christian Callahan on 06-12-2023 MCV (RBC) [Entitic vol] 92.0 fL 81-99 [facility] Hematocrit Auto (Bld) [Volum e fraction]Ordered By: [facility] Call[facility] on 06-12-2023 Hematocrit (Bld) [Volume fraction] 44.8 % 37-47 [facility] Laboratory - Chemistry and C hemistry - challengeOrdered By: Christian Callahan on 06-12-2023 CO2 [Moles/Vol] 26.0 mmol/L 21.0-32.0 [facility] Urea nitrogen/Creatinine [Mass ratio] 10.3 mg/mg 10-20 [facility] Laboratory - Hematology and Cell countsOrdered By: [facility] Callahan on 06-12-2023 Erythrocyte distribution width (RBC) [Entitic vol] 43.3 fL 35.1-43.9 [facility] Erythrocyte distribution width (RBC) [Ratio] 12.8 % 11.6-14.6 [facility] Immature granulocytes/100 WBC (Bld) 0.200 % 0.0-0.9 [facility] Comment on above: IG% - Immature Granu locytes (promyelocytes, myelocytes and metamyelocytes) > 1% indicates that a LEFT SHIFT is Present. MCH (RBC) [Entitic mass] 30.2 pg 27.0-32.0 [facility] Nucleated RBC/100 WBC (Bld) [Ratio] 0 % 0-5 [facility] MCHC Auto (RBC) [Mass/Vol]Or dered By: Christian Callahan on 06-12-2023 MCHC (RBC) [Mass/Vol] 32.8 g/dL 32-36 [facility] No Panel InformationOrdered By: Christian Callahan on 06-12-2023 D-Dimer Quantitative (PE/DVT) 0.59 FEU/ug/m 0.27-0.49 [facility] Comment on above: D-Dimer ELEVATED (>0 .49): Additional studies and clinicalassessments are indicated to conclude diagnosis of:Deep Vein Thrombosis (DVT) or Pulmonary Embolism (PE)RESULTS CALLED TO KRYSTAL LÓPEZ RN 06/12/23 0755 Lynn Womack.REPORT READ BACK BY SAME Estimated Creatinine Clearance Calc 83.58 ml/min [facility] Estimated GFR (MDRD) Amer 91 mL/min >60 [facility] Comment on above: GFR Calc Estimated GFR (MDRD) Non-Af Amer 75 mL/min >60 [facility] Comment on above: Non- GFR Calc Troponin I High Sensitivity < 3 pg/mL 3.0-54.0 [facility] Comment on above: Please Note: New Amy t Units and Gender Specific Reference Ranges. For more information see Policy Stat Procedure [place] High Sensitivity Troponin (TNIH) and attachments. Platelets bldOrdered By: Malena Callahan on 06-12-2023 Platelets (Bld) [#/Vol] 286 10*3/uL 150-450 [facility] Serum or plasma calcium mckinley urement (mass/volume)Ordered By: Christian Callahan on 06-12-2023 Calcium [Mass/Vol] 8.5 mg/dL 8.5-10.1 [facility] Serum or plasma creatinine m easurement (mass/volume)Ordered By: Christian Callahan on 06-12-2023 Creatinine [Mass/Vol] 0.98 mg/dL 0.55-1.02 [facility] Comment on above: The validity of the calculated GFR & GFRAA in patients over 70 years has not been determined. Clinical correlation is essential. Serum or plasma urea nitroge n measurement (mass/volume)Ordered By: Remus Ungur on 06-12-2023 Urea nitrogen [Mass/Vol] 10 mg/dL -18 [facility] Thin prep Papanicolaou smear with manual screeningOrdered By: Remus Ungur on 06-12-2023 Thin prep Papanicolaou smear with manual screening 5 5-15 [facility] BACTERIAL VAGINOSIS NAATon 0 04-24-2023 Lactobacillus crispatus+gasseri+je nsenii + Gardnerella vaginalis + Atopobium vaginae rRNA SOL+probe Ql (Vag fld) Positive Abnormal Negative for bacterial vaginosis RANCHO/TRICHOMONAS NAATon 0 04-24-2023 C. glabrata RNA SOL+probe Ql (Vag fld) Negative Negative for Rancho glabrata Rancho sp DNA SOL+probe Ql (Vag fld) Negative Negative for Rancho species T. vaginalis DNA SOL+probe Ql (Unsp spec) Negative Negative for Trichomonas vaginalis by amplification HCG QUAL UR B/Oon 02-21-2023 status Negative neg - pos [facility] Quality Check Yes UA DIP, URINE (POC)on 2022 BILIRUBIN UA (POCT) Small Abnormal Negative [facility] CLARITY UA (POCT) Slightly Cloudy Cl [facility] COLOR UA (POCT) Other GLUCOSE UA (POCT) Negative Negative mg/dL [facility] HEMOGLOBIN/BLOOD UA (POCT) Small Abnormal Negative KETONE UA (POCT) Trace Negative mg/dL [facility] LEUKOCYTES UA (POCT) Small Abnormal Negative [facility] NITRITE UA (POCT) Negative Negative [facility] PH UA (POCT) 5.0 4.5 - 8.0 Protein Ql (U) Negative Negative mg/dL [facility] SPECIFIC GRAVITY UA (POCT) 1.025 1.005 - 1.030 UROBILINOGEN UA (POCT) 0.2 E.U./dL Normal E.U./dL HISTORY PHYSICALon 3 HISTORY PHYSICAL HNO ID: [id number] Author: Junior Bella PA-C Service: ? Author Type: Physician Rig Hand Type: HANDP Filed: 01/03/2023 12:40 PM Note [...] manage symptoms. Procedure scheduled on 01/04/2023 at [facility]. REVIEW OF SYSTEMS: General: No weight loss, malaise or fevers. Neurological: No history of TIA's, stroke, LEGAL DOCUMENT SPECIALIST tumor, impaired sensorium, hemiplegia, paraplegia or quadraplegia. [...] frequent urination, nephrolithiasis, renal failure and urgency. 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 [...] EOM i (more content not included)... Normal [facility] GC/Chlamydia Amp, Uron 07-06 Chlamydia Amplif, Ur Normal [facility] Comment on above: Result Comment: Nega tive for For screening asymptomatic women, a vaginal swab specimen (APTIMA vaginal swab 287790) is optimal. Urine specimens have reduced sensitivity for Chlamydia trachomatis or Neisseria gonorrhoeae infection in female patients without symptoms. This test was developed and its performance characteristics determined by [facility] [place] ([facility]). It has not been cleared or approved by the FDA. [facility] is regulated under CLIA as qualified to perform high complexity testing. This test is used for clinical purposes. It should not be regarded as investigational or for research. Chlamydia For screening asymptomatic women, a vaginal swab specimen (APTIMA vaginal swab 563701) is optimal. Urine specimens have reduced sensitivity for Chlamydia trachomatis or Neisseria gonorrhoeae infection in female patients without symptoms. This test was developed and its performance characteristics determined by [facility] [place] ([facility]). It has not been cleared or approved by the FDA. [facility] is regulated under CLIA as qualified to perform high complexity testing. This test is used for clinical purposes. It should not be regarded as investigational or for research. trachomatis by For screening asymptomatic women, a vaginal swab specimen (APTIMA vaginal swab 508001) is optimal. Urine specimens have reduced sensitivity for Chlamydia trachomatis or Neisseria gonorrhoeae infection in female patients without symptoms. This test was developed and its performance characteristics determined by [facility] [place] ( [facility]). It has not been cleared or approved by the FDA. [facility] is regulated under CLIA as qualified to perform high complexity testing. This test is used for clinical purposes. It should not be regarded as investigational or for research. amplification. For screening asymptomatic women, a vaginal swab specimen (APTIMA vaginal swab 113637) is optimal. Urine specimens have reduced sensitivity for Chlamydia trachomatis or Neisseria gonorrhoeae infection in female patients without symptoms. This test was developed and its performance characteristics determined by [facility] [place] ( [facility]). It has not been cleared or approved by the FDA. [facility] is regulated under CLIA as qualified to perform high complexity testing. This test is used for clinical purposes. It should not be regarded as investigational or for research. Performed By: #### U GCCT #### Laboratories Routine Lab [address], [place] [address] GC Amplification, Ur NGNEG Normal [facility] Comment on above: Performed By: #### U GCCT #### Laboratories Routine Lab [address] [place], [place] [address] XR Chest PA and Lateralon IMPRESSION: No acute radiographic abnormality. Window Trimmer Apprentice: OLGA Transcribe Date/Time: Jan 10 2021 2:42P Dictated by : CLARK VILLAR MD This examination was interpreted and the report reviewed and electronically signed by: CLARK VILLAR MD on Jan 10 2021 2:44PM [facility] DIVISION OF RADIOLOGY * * *Final Report* [...] soft tissues: Unremarkable. DIVISION OF RADIOLOGY Provider, [facility] - 01/10/2021 * * *Final Report* [...] Unremarkable. IMPRESSION IMPRESSION: No acute radiographic abnormality. Window Trimmer Apprentice: PSCB Transcribe Date/Time: Jan 10 2021 2:42P Dictated by : CLARK VILLAR MD This examination was interpreted and the report reviewed and electronically signed by: CLARK VILLAR MD on Jan 10 2021 2:44PM EST Radiology Study observation (narrative) XR Chest PA and LateralOrder ed By: [facility] Provider on 01-10-2021 Basic Metabolic Panelon - Anion gap [Moles/Vol] 9 mmol/L Normal 3-13 [facility] Comment on above: Performed By: #### E SR, CRP2, PCAL, PT, BMP3, HEMDF, TSH5 #### [facility] [address] [place] [address] Calcium [Mass/Vol] 9.1 mg/dL Normal 8.4-10.4 [facility] Comment on above: Performed By: #### E SR, CRP2, PCAL, PT, BMP3, HEMDF, TSH5 #### [facility] [address] [place] [address] CO2 [Moles/Vol] 22 mmol/L Normal 22-30 [facility] Comment on above: Performed By: #### E SR, CRP2, PCAL, PT, BMP3, HEMDF, TSH5 #### [facility] [address] [place] [address] Glucose [Mass/Vol] 128 mg/dL High 70-100 [facility] Comment on above: Performed By: #### E SR, CRP2, PCAL, PT, BMP3, HEMDF, TSH5 #### [facility] [address] [place] [address] Urea nitrogen [Mass/Vol] 7 mg/dL Normal 7-20 [facility] Comment on above: Performed By: #### E SR, CRP2, PCAL, PT, BMP3, HEMDF, TSH5 #### [address] Creatinine [Mass/Vol] 0.57 mg/dL Normal 0.52-1.25 [facility] Comment on above: Performed By: #### E SR, CRP2, PCAL, PT, BMP3, HEMDF, TSH5 #### [address] GFR/1.73 sq M predicted among blacks MDRD (S/P/Bld) [Vol rate/Area] mL/min/{1.73_m2} Normal >60 [facility] Comment on above: Performed By: #### E SR, CRP2, PCAL, PT, BMP3, HEMDF, TSH5 #### [address] GFR/1.73 sq M predicted among non-blacks MDRD (S/P/Bld) [Vol rate/Area] mL/min/{1.73_m2} Normal >60 [facility] Comment on above: Result Comment: KDIG O [...] CRP2, PCAL, PT, BMP3, HEMDF, TSH5 #### [address] Potassium [Moles/Vol] 4.0 mmol/L Normal 3.5-5.1 [facility] Comment on above: Performed By: #### E SR, CRP2, PCAL, PT, BMP3, HEMDF, TSH5 #### [facility] [address] [place], [place] Sodium [Moles/Vol] 138 mmol/L Normal 135-145 [facility] Comment on above: Performed By: #### E SR, CRP2, PCAL, PT, BMP3, HEMDF, TSH5 #### [facility] [address], [place] Chloride [Moles/Vol] 108 mmol/L High 98-107 [facility] Comment on above: Performed By: #### E SR, CRP2, PCAL, PT, BMP3, HEMDF, TSH5 #### [place] [address] [place], [place] Anion gap [Moles/Vol] 9 mmol/L 3 - 13 mmol/L [facility] Work Phone: Calcium [Mass/Vol] 9.1 mg/dL 8.4 - 10. 4 mg/dL [facility] Work Phone: Chloride [Moles/Vol] 108 mmol/L High 98 - 10 7 mmol/L [facility] Work Phone: CO2 [Moles/Vol] 22 mmol/L 22 - 30 mmol/L [facility] Work Phone: Creatinine [Mass/Vol] 0.57 mg/dL 0.52 - 1.25 mg/dL [facility] Work Phone: EGFR IF NonAfrican Mosotho >90.0 >60 mL/min [facility] Work Phone: Comment on above: KDIGO guidelines [...] MDRD (S/P/Bld) [Vol rate/Area] mL/min/{1.73_m2} >60 mL/min [facility] Work Phone: Glucose [Mass/Vol] 128 mg/dL High 70 - 100 mg/dL [employer] Work Phone: Interpretation and review of laboratory results Abnormal [facility] Work Phone: [phone] Potassium [Moles/Vol] 4.0 mmol/L 3.5 - 5.1 mmol/L [facility] Work Phone: [phone] Sodium [Moles/Vol] 138 mmol/L 135 - 145 mmol/L [facility] Work Phone: Urea nitrogen [Mass/Vol] 7 mg/dL 7 - 20 mg/dL [facility] Work Phone: C-Reactive Proteinon 021 CRP [Mass/Vol] 9.1 mg/L High 0.0-6.0 [employer] Comment on above: Result Comment: . Performed By: #### E SR, CRP2, PCAL, PT, BMP3, HEMDF, TSH5 #### [facility] [address] [place] [id number] CRP [Mass/Vol] 9.1 mg/L High 0.0 - 6.0 mg/L [facility] Work Phone: Comment on above: . Interpretation and review of laboratory results Abnormal [facility] Work Phone: Test Performed by [employer], [facility] [place], [place] [address] [place], [place] [address] Work Phone: CBC Auto Differentialon - Absolute Baso # 0.0 10*3/uL 0.0 - 0.2 10*3/uL [facility] Work Phone: [phone] Absolute Neut # 13.4 10*3/uL High 1.8 - 7.0 10*3/uL [facility] Work Phone: [phone] Basophils/100 WBC (Bld) 0.2 % 0.0 - 2.0 % [employer] Work Phone: [phone] Eosinophils (Bld) [#/Vol] 0.0 10*3/uL 0.0 - 0.5 10*3/uL [facility] Work Phone: [phone] Eosinophils/100 WBC (Bld) 0.0 % Low 1.0 - 6.0 % [employer] Work Phone: [phone] Erythrocyte distribution width (RBC) [Ratio] 13.8 % 11.5 - 14.5 % [employer] Work Phone: [phone] Granulocytes/100 WBC (Bld) 91.5 % High 40.0 - 80.0 % [employer] Work Phone: [phone] Hematocrit (Bld) [Volume fraction] 37.9 % 35.0 - 47.0 % [employer] Work Phone: [phone] Hemoglobin (Bld) [Mass/Vol] 12.9 g/dL 11.7 - 16.0 g/dL [employer] Work Phone: [phone] Interpretation and review of laboratory results Abnormal [employer] Work Phone: [phone] Lymphocytes (Bld) [#/Vol] 1.1 10*3/uL 1.0 - 4.3 10*3/uL [employer] Work Phone: [phone] Lymphocytes/100 WBC (Bld) 7.7 % Low 20.0 - 40.0 % [employer] Work Phone: [phone] MCH (RBC) [Entitic mass] 29.6 pg 26.0 - 34.0 pg [employer] Work Phone: [phone] MCHC (RBC) [Mass/Vol] 34.0 % 32.0 - 36.0 % [employer] Work Phone: [phone] MCV (RBC) [Entitic vol] 86.9 fL 79.0 - 98.0 fL [employer] Work Phone: Monocytes (Bld) [#/Vol] 0.1 10*3/uL 0.0 - 0.8 10*3/uL [employer] Work Phone: Monocytes/100 WBC (Bld) 0.6 % Low 2.0 - 10.0 % [employer] Work Phone: Platelet mean volume (Bld) [Entitic vol] 7.9 fL 7.4 - 10.4 fL [employer] Work Phone: Platelets (Bld) [#/Vol] 303 10*3/uL 140 - 440 10*3/uL [employer] Work Phone: RBC (Bld) [#/Vol] 4.37 10*6/uL 3.80 - 5.2 0 10*6/uL [employer] Work Phone: WBC (Bld) [#/Vol] 14.7 10*3/uL High 3.6 - 10.7 10*3/uL [employer] Work Phone: Test Performed by [facility] [place] [employer] [facility], [address] [place] [address] [employer] Work Phone: EKG 12 [place] 12-06-2020 [employer] Test Date: 2020-12-06 Pat Name: Eb Hui Department: [facility] Room: [facility] Gender: F 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 Helper: KOURTNEY : 2000 Requested By: SABINO ORTEGA Order Number: [id number] Reading MD: Ba Cordon Measurements Intervals Lindsay Rate: 60 P: -12 AK: 152 QRS: 0 QRSD: 89 T: 58 QT: 410 QTc: 410 Interpretive Statements Sinus rhythm Borderline T wave abnormalities Electronically Signed On 12-06-2020 10:01:11 EDT by Ba Cordon [employer] Work Phone: Rod, [place] In[facility] Results From Ricardo/Sahil - 12/06/2020 10:02 AM EDT [employer] Test Date: 2020-12-06 Pat Name: Eb Hui Department: [id number] Room: 1557 Gender: F Maintenance Helper: KOURTNEY : 2000 Requested By: SABINO ORTEGA Order Number: [id number] Reading MD: Ba Cordon Measurements Intervals Lindsay Rate: 60 P: -12 AK: 152 QRS: 0 QRSD: 89 T: 58 QT: 410 QTc: 410 Interpretive Statements Sinus rhythm Borderline T wave abnormalities Electronically Signed On 12-06-2020 10:01:11 EDT by Ba Cordon [employer] Work Phone: Hemogram w/ Autodiffon 12-06 Abs Baso Cnt 0.0 10*3/uL Normal 0.0-0.2 [facility] Comment on above: Performed By: #### E SR, CRP2, PCAL, PT, BMP3, HEMDF, TSH5 #### [address] Abs Neutrophile Cnt 13.4 10*3/uL High 1.8-7.0 [facility] Comment on above: Performed By: #### E SR, CRP2, PCAL, PT, BMP3, HEMDF, TSH5 #### [address] [address] Basophils/100 WBC (Bld) 0.2 % Normal 0.0-2.0 [facility] Comment on above: Performed By: #### E SR, CRP2, PCAL, PT, BMP3, HEMDF, TSH5 #### [address] Eosinophils (Bld) [#/Vol] 0.0 10*3/uL Normal 0.0-0.5 [facility] Comment on above: Performed By: #### E SR, CRP2, PCAL, PT, BMP3, HEMDF, TSH5 #### [address] [address] Eosinophils/100 WBC (Bld) 0.0 % Low 1.0-6.0 [facility] Comment on above: Performed By: #### E SR, CRP2, PCAL, PT, BMP3, HEMDF, TSH5 #### [address] Erythrocyte distribution width (RBC) [Ratio] 13.8 % Normal 11.5-14.5 [facility] Comment on above: Performed By: #### E SR, CRP2, PCAL, PT, BMP3, HEMDF, TSH5 #### [address] Granulocytes/100 WBC (Bld) 91.5 % High 40.0-80.0 [facility] Comment on above: Performed By: #### E SR, CRP2, PCAL, PT, BMP3, HEMDF, TSH5 #### [address] Hematocrit (Bld) [Volume fraction] 37.9 % Normal 35.0-47.0 [facility] Comment on above: Performed By: #### E SR, CRP2, PCAL, PT, BMP3, HEMDF, TSH5 #### [address] Hemoglobin (Bld) [Mass/Vol] 12.9 g/dL Normal 11.7-16.0 [facility] Comment on above: Performed By: #### E SR, CRP2, PCAL, PT, BMP3, HEMDF, TSH5 #### [address] Lymphocytes (Bld) [#/Vol] 1.1 10*3/uL Normal 1.0-4.3 [facility] Comment on above: Performed By: #### E SR, CRP2, PCAL, PT, BMP3, HEMDF, TSH5 #### [address] Lymphocytes/100 WBC (Bld) 7.7 % Low 20.0-40.0 [facility] Comment on above: Performed By: #### E SR, CRP2, PCAL, PT, BMP3, HEMDF, TSH5 #### [address] MCH (RBC) [Entitic mass] 29.6 pg Normal 26.0-34.0 [facility] Comment on above: Performed By: #### E SR, CRP2, PCAL, PT, BMP3, HEMDF, TSH5 #### [address] MCHC (RBC) [Mass/Vol] 34.0 % Normal 32.0-36.0 [facility] Comment on above: Performed By: #### E SR, CRP2, PCAL, PT, BMP3, HEMDF, TSH5 #### [address] MCV (RBC) [Entitic vol] 86.9 fL Normal 79.0-98.0 [facility] Comment on above: Performed By: #### E SR, CRP2, PCAL, PT, BMP3, HEMDF, TSH5 #### [address] Monocytes (Bld) [#/Vol] 0.1 10*3/uL Normal 0.0-0.8 [facility] Comment on above: Performed By: #### E SR, CRP2, PCAL, PT, BMP3, HEMDF, TSH5 #### [address] Monocytes/100 WBC (Bld) 0.6 % Low 2.0-10.0 [facility] Comment on above: Performed By: #### E SR, CRP2, PCAL, PT, BMP3, HEMDF, TSH5 #### [address] Platelet mean volume (Bld) [Entitic vol] 7.9 fL Normal 7.4-10.4 [facility] Comment on above: Performed By: #### E SR, CRP2, PCAL, PT, BMP3, HEMDF, TSH5 #### [address] Platelets (Bld) [#/Vol] 303 10*3/uL Normal 140-440 [facility] Comment on above: Performed By: #### E SR, CRP2, PCAL, PT, BMP3, HEMDF, TSH5 #### [address] RBC (Bld) [#/Vol] 4.37 10*6/uL Normal 3.80-5.20 [facility] Comment on above: Performed By: #### E SR, CRP2, PCAL, PT, BMP3, HEMDF, TSH5 #### [address] WBC (Bld) [#/Vol] 14.7 10*3/uL High 3.6-10.7 [facility] Comment on above: Performed By: #### E SR, CRP2, PCAL, PT, BMP3, HEMDF, TSH5 #### [address] Otheron 12-06-2020 Test Performed by [facility], [address] [place] [address] Work Phone: Procalcitoninon 12-06-2020 Procalcitonin < 0.10 Normal <0.10 [facility] Comment on above: Performed By: #### E SR, CRP2, PCAL, PT, BMP3, HEMDF, TSH5 #### [address] Procalcitonin <0.10 <0.10 ng/mL [facility] Work Phone: Sodium [Moles/Vol] See Below [facility] Work Phone: Comment on above: PCT <0.50 = Low risk of severe sepsis and/or septic shock. PCT >2.00 = High risk of severe sepsis and/or septic shock. Test Performed by [facility], [address] [place] [address] Work Phone: Interpretation See Below Normal [facility] Comment on above: Result Comment: PCT <0.50 = Low risk of severe sepsis and/or septic shock. PCT >2.00 = High risk of severe sepsis and/or septic shock. Performed By: #### E SR, CRP2, PCAL, PT, BMP3, HEMDF, TSH5 #### [address] [id number] Prothrombin Timeon INR Coag (PPP) [Relative time] 1.0 Normal 0.9-1.1 [facility] Comment on above: Result Comment: Logan mmended [...] CRP2, PCAL, PT, BMP3, HEMDF, TSH5 #### [address] [phone] PT Coag (PPP) [Time] 11.3 s Normal 9.0-12.0 [facility] Comment on above: Result Comment: . Performed By: #### E SR, CRP2, PCAL, PT, BMP3, HEMDF, TSH5 #### [address] [phone] Protime-INRon 12-06-2020 INR Coag (PPP) [Relative time] 1.0 {INR} [facility] Work Phone: Comment on above: Recommended Anticoag [...] [Time] 11.3 s 9.0 - 12.0 s [facility] Work Phone: Comment on above: . Test Performed by [facility] [employer], [address] [place] [address] [employer] Work Phone: Sed Rateon 12-06-2020 Sed Rate 12 mm/h Normal 0-20 [facility] [employer] Comment on above: Performed By: #### E SR, CRP2, PCAL, PT, BMP3, HEMDF, TSH5 #### [employer] [address] [place] [address] Sedimentation Rateon 021 Sed Rate 12 mm/h 0 - 20 mm/h [facility] Work Phone: TSH without Reflexon 021 Interpretation and review of laboratory results Abnormal [facility] Work Phone: TSH Qn 0.192 u[IU]/mL Low 0.465 - 4.680 u[IU]/mL [facility] Work Phone: Test Performed by [employer], [address] [place] [address] [employer] Work Phone: Thyroid Stim. Hormoneon 11-21 Thyroid Stim. Hormone 0.192 u[IU]/mL Low 0.465-4.680 [facility] Comment on above: Performed By: #### E SR, CRP2, PCAL, PT, BMP3, HEMDF, TSH5 #### [employer] [address] [place] [id number] PROGRESSon 07-11-2019 PROGRESS HNO ID: [id number] Author: Rodo Hope Service: Obstetrics Author Type: [...] today F/u this week in office in [place] for BP check [facility] STAFF PHYSICIAN NOTE OF PERSONAL INVOLVEMENT IN CARE I have reviewed the progress note obtained and documented by the resident and I personally participated in the nkapp components. I have discussed the case and [...] this patient SIGNATURE: Rodo Hope MD PAGER: [phone] DATE of SERVICE: July 11, 2019 TIME of SERVICE: 10:16 AM Rodo Hope MD [facility] ANES Philip 07-10-2019 ANES POST HNO ID: [id number] Author: Leif Zelaya Service: Anesthesiology Author Type: Nurse Hand Brim Ironer Type: Anesthesia PostOp Filed: 07/10/2019 7:52 AM [...] 2019 TIME: 7:51 AM PAGER/CONTACT #: Marisol [facility] PROGRESSon 07-10-2019 PROGRESS HNO ID: [id number] Author: George Nguyễn Jr. Service: ? Author [...] July 10, 2019 TIME: 10:29 AM Normal [facility] PROGRESS HNO ID: [id number] Author: Nancy Gonzales Service: Obstetrics Author Type: [...] DATE: July 10, 2019 TIME: 6:29 AM [facility] ANES INTRAOPon 07-09-2019 ANES INTRAOP HNO ID: [id number] Author: Tay Leung Service: Anesthesiology Author Type: Nurse Hand Brim Ironer Type: Anesthesia IntraOp Filed: 07/09/2019 8:24 PM Note Text: ANALGESIA PROGRESS RECORD CATHETER REMOVAL/END OF CASE SERVICE DATE: 07/09/2019 REMOVAL DATE AND TIME: 07/09/2019 at 0835 DELIVERY DATE AND TIME: 07/09/2019 at 8:03 AM CATHETER REMOVAL: Catheter Removal: Epidural removed by Labor and thread inspector. Please see nursing notes. SIGNATURE: Tay Leung APRN.CRNA PATIENT NAME: Eb Hui DATE: July 09, 2019 TIME: 8:24 PM PAGER/CONTACT #: [facility] ANES INTRAOP HNO ID: [id number] Author: Marcos Mayes Service: Anesthesiology Author Type: Nurse Hand Brim Ironer Type: Anesthesia IntraOp Filed: 07/09/2019 6:57 AM [...] to stay on left side d/t tracing. [facility] CASE MANAGEMon 07-09-2019 CASE MANAGEM HNO ID: [id number] Author: TRINA Gu (Lisw) Service: Social Work Author Type: Data Warehouse Developer Type: Care Mgt Progress Note Filed: 07/09/2019 [...] has script coverage and pharmacies at [facility] in [place]. 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 She denies any concerns for homegoing.Has history of depression and anxiety. Currently not in any counseling and was prescribed antidepressants in past but didn't like how they made her feel and this was way before .Discussed symptoms of depression in light of post depression and patient agrees she will call her PCP if this occurs. Patient is already active with [facility] and she has ordered a car seat to be delivered soon.Baby currently in [facility] so does not need stat.Patient is prepared for baby with clothing carseat etc. SIGNATURE: TRINA Gu PATIENT NAME: Eb Hui DATE: July 09, 2019 TIME: 4:23 PM PAGER/CONTACT #: [phone] [facility] LD NOTEon 07-09-2019 LD NOTE HNO ID: [id number] Author: Nancy Gonzales Service: Obstetrics Author Type: Resident Type: LANDD Delivery Note Filed: 07/09/2019 8:37 AM Note Text: -- Attestation signed by Nathalie Alas at 07/09/2019 9:09 AM I was present for the entire procedure and agree with above Nathalie Alas MD -- OBSTETRICS DELIVERY SUMMARY - VAGINAL DELIVERY Gestational Age at Delivery: 33w1d Service Date: 07/09/2019 Service Time: 8:32 AM Yousuf Hui [[id number]] Labor Events Rupture Date: 07/09/19 Rupture Time: [...] July 09, 2019 TIME: 8:32 AM Normal [facility] NURSING PROGon 07-09-2019 NURSING PROG HNO ID: [id number] Author: Kristy NegreteRn) PATIENCE Marie Service: Nursing Author Type: Registered Nurse Type: Nursing Progress Note Filed: 07/09/2019 10:44 AM Note Text: Patient anterior lip per Dr. Alas Patient transferred to OR 2 for delivery, see delivery summary. Normal [facility] PROCEDUREon 07-09-2019 PROCEDURE HNO ID: [id number] Author: Marcos Mayes Service: Anesthesiology Author Type: Nurse Hand Brim Ironer Type: Procedures Filed: 07/09/2019 5:27 AM Note [...] comfortable able to move legs Placed By agd/member services representative Pain Score After Treatment: 5 out of 10 See nurses' documentation for additional vitals. SIGNATURE: Marcos Mayes APRN.CRNA PATIENT NAME: Eb Hui DATE: July 09, 2019 TIME: 5:11 AM PAGER/CONTACT #: [facility] PROGRESSon 07-09-2019 PROGRESS HNO ID: [id number] Author: George Nguyễn Jr. Service: ? Author [...] DATE: July 09, 2019 TIME: 10:14 AM [facility] PROGRESS HNO ID: [id number] Author: Sarah Ramirez Service: Obstetrics Author Type: [...] mod/+accels/+intermittent late decels, +intermittent moderate variable decels [place]: q1-3 mins Cat II FHT 19 yo @ 33+1 IOL Pre-eclampsia with features Cat II FHT -DC pitocin. Restart at 30 minutes cat I FHT. -Pt making cervical change -IUPC placed without difficulty. Dr. Alas updated. Cont to monitor. Day team updated. Sarah Ramirez, PGY-3 Obstetrics and Gynecology Pager 07/09/2019 7:27 AM [facility] PROGRESS HNO ID: [id number] Author: oJrje Toledo DO Service: Obstetrics Author Type: Resident Type: Progress Notes Filed: 07/09/2019 6:12 AM Note Text: Recently received epidural, getting comfortable. BP 116/59 Pulse 83 Temp 36.9 ?C (98.4 ?F) (Oral) Resp 16 Ht 170.2 cm (5' 7) Wt 92.1 kg (203 lb) SpO2 96% BMI 31.79 kg/m? FHT: 125/mod variability/+ accels/intermittent mild variable, intermittent late decels [place]: q3-5min Active Hospital Problems Diagnosis Date Noted [...] - 3 years ago after exposure at [facility] - Vancomycin if for - [...] Hui DATE: 07/09/2019 TIME: 6:00 AM PAGER: [phone] Normal [facility] PROGRESS HNO ID: [id number] Author: Jorje Toledo DO Service: Obstetrics Author Type: Resident Type: Progress Notes Filed: 07/09/2019 5:15 AM Note Text: Patient desiring epidural at this time. BP 141/92 Pulse 81 Temp 36.9 ?C (98.4 ?F) (Oral) Resp 16 Ht 170.2 cm (5' 7) Wt 92.1 kg (203 lb) SpO2 96% BMI 31.79 kg/m? FHT: 130/min to mod variability/+ accels/intermittent mild variable decels [place]: q2-4min Active Hospital Problems Diagnosis Date Noted [...] wnl on admission - Magnesium started at [place], currently running 2g/hr - Continue to monitor - Prematurity 07/08/2019 Overview Note: - s/p BMZ 07/06 and 07/07 - Growth at 32w6d 4lb 9oz 42%ile - NICU aware, plan to deliver in the OR - Scoliosis 07/08/2019 Overview Note: - Anesthesia to evaluate for epidural - History of MRSA infection 07/08/2019 Overview Note: - 3 years ago after exposure at [employer] - Vancomycin if for - Pneumonia affecting [...] Hui DATE: 07/09/2019 TIME: 5:14 AM PAGER: [phone] [facility] PROGRESS HNO ID: [id number] Author: Jorje Toledo DO Service: Obstetrics Author Type: Resident Type: Progress Notes Filed: 07/09/2019 3:25 AM Note Text: Patient comfortable. AROM performed for large amount of clear fluid. Patient tolerated well. BP 131/88 Pulse 73 Temp 36.9 ?C (98.4 ?F) (Oral) Resp 16 Ht 170.2 cm (5' 7) Wt 92.1 kg (203 lb) SpO2 95% BMI 31.79 kg/m? FHT: 130/mod variability/+ accels/- decels [place]: q2-4min Active Hospital Problems Diagnosis Date Noted [...] - 3 years ago after exposure at [facility] - Vancomycin if for - [...] Hui DATE: 07/09/2019 TIME: 3:24 AM PAGER: [phone] [facility] PROGRESS HNO ID: [id number] Author: Jorje Toledo DO Service: Obstetrics Author Type: Resident Type: Progress Notes Filed: 07/09/2019 1:11 AM Note Text: Patient overall comfortable. BP 128/83 Pulse 71 Temp 36.9 ?C (98.4 ?F) (Oral) Resp 16 Ht 170.2 cm (5' 7) Wt 92.1 kg (203 lb) SpO2 96% BMI 31.79 kg/m? FHT: 135/min to mod variability/+ accels/isolated late decels [place]: q2-4min Active Hospital Problems Diagnosis Date Noted [...] - 3 years ago after exposure at [employer] - Vancomycin if for - Pneumonia affecting [...] Hui DATE: 07/09/2019 TIME: 1:10 AM PAGER: [phone] Normal [facility] PROGRESS HNO ID: [id number] Author: Jorje Toledo DO Service: Obstetrics Author Type: Resident Type: Progress Notes Filed: 07/08/2019 10:18 PM Note Text: Patient overall comfortable. BP 135/88 Pulse 80 Temp 37.2 ?C (99 ?F) (Temporal) Resp 16 Ht 170.2 cm (5' 7) Wt 92.1 kg (203 lb) SpO2 96% BMI 31.79 kg/m? FHT: 130/min to mod variability/+ accels/- decels [place]: q1-5min Active Hospital Problems Diagnosis Date Noted [...] - 3 years ago after exposure at [facility] - Vancomycin if for - [...] Hui DATE: 07/08/2019 TIME: 10:17 PM PAGER: [phone] Normal [facility] ABO/Rh Confirmationon 2018 ABO group Nom (Bld) A Normal [facility] Comment on above: Performed By: #### A MIA #### [place] [address] RH Type Positive Normal [facility] Comment on above: Performed By: #### A MAI #### [place] [address] ANES PREOPon 07-08-2019 ANES PREOP HNO ID: [id number] Author: Jone Coulter (Srna) Service: Anesthesiology Author [...] with meals. Disp: 60 tablet Rfl: 3 Nmgdqgat-Yw-Cko-Fe-FA tab Take 1 tablet by mouth once daily. With DHA as covered by insurance Disp: 30 tablet Rfl: 11 Taking Inpatient medications reviewed in [facility]. I have interviewed and examined the patient. [...] 08, 2019 TIME: 3:33 PM : 2000 [facility] CONSULTon 07-08-2019 CONSULT HNO ID: [id number] Author: Crystal Castro Service: Neonatology Author Type: Physician Type: Consults Filed: 07/08/2019 12:05 PM Note Text: NEONATOLOGY CONSULT SERVICE DATE: 07/08/2019 Admission Date: 07/08/2019 SERVICE TIME: 1130 Date of : 2000 Age: [age] year old Sex: female Primary Care Physician: Carolann Matthew MD Consulting Associate Director Of Nursing: Karla Armstrong APRN.ELLIE and Crystal Castro MD [...] tablet by mouth twice daily with meals. Bxrdywwt-Kg-Iop-Fe-FA tab Take 1 tablet by mouth once [...] delays: No Discussed need for evaluation by Tunnel Elastic Operator Lockstitch for ROP: No Discussed risk for hearing [...] Verbal consent obtained: No MISC. Name if Staple Side Laster, if known: Unknown, please contact patient's primary care physician Possible need for transfer to outside hospital: Yes Possible need for subspecialty evaluation: No Additional discussion: N/A Impression/Recommendations Assessment: Infant (male) to deliver at 33 weeks gestation; labor induced due to severe pre-eclampsia Plan: Neonatology to be present at delivery Physician kpel-ar-uecs total time, including discussion: 70 minutes, more than 50 % of time devoted to coordination of care and/or counseling. SIGNATURE: Karla Armstrong APRN.TOOL REPAIRER BENCH PATIENT NAME: Eb Hui DATE: July 08, 2019 TIME: 11:49 AM I discussed above with mom in detail. No additional questions. Crystal Castro MD [facility] CONSULT HNO ID: [id number] Author: Jorje Toledo DO Service: Obstetrics Author [...] with pre-e ? CHIEF COMPLAINT: Transfer from [place] ? HISTORY OF THE PRESENT ILLNESS: The patient is a 19 year old female, , who is at 33w0d here as a transfer of care from [facility] after being diagnosed with preeclampsia with features. Patient was previously admitted at [facility] at 32w5d for preeclampsia without features for observation. At that time, patient had labwork drawn that was overall normal and received 2 doses of betamethasone. She has intermittently had a headache and right upper quadrant pain since that time. She now has persistent right upper quadrant pain that she describes as persistently dull and intermittently sharp. When seen in [facility], she had high mild to severe range blood pressures and was started on Magnesium and sent to [facility]. ? She denies any current headache. She [...] Prescriptions Last Dose Informant Patient Reported? Taking? Guuqyxse-Pt-Iea-Fe-FA tab ? ? No No Sig: Take [...] reviewed for today's visit: Outside chart from [place] reviewed. records reviewed ? ? Assessment/Plan 19 [...] severe on admission - Magnesium started at [place], currently running 2g/hr - Continue to monitor [...] Hui DATE: 07/08/2019 TIME: 3:16 AM PAGER: [phone] Normal [facility] Comprehensive Panelon 2018 Urea nitrogen [Mass/Vol] 12 mg/dL Normal 7-18 [facility] Comment on above: Performed By: #### P 14 #### [place] [address] ALP [Catalytic activity/Vol] 110 U/L Normal 45-117 [facility] Comment on above: Performed By: #### P 14 #### [place] [address] Bilirubin [Mass/Vol] 0.2 mg/dL Normal 0.2-1.0 [facility] Comment on above: Performed By: #### P 14 #### [facility] [address] [place], [place] [address] Creatinine [Mass/Vol] 0.66 mg/dL Normal 0.51-0.95 [facility] Comment on above: Performed By: #### P 14 #### [facility] [address] [place], [place] [address] Protein [Mass/Vol] 5.8 g/dL Low 6.4-8.2 [facility] Comment on above: Performed By: #### P 14 #### [facility] [address] [place], [place] [address] AST [Catalytic activity/Vol] 12 U/L Low 15-37 [facility] Comment on above: Performed By: #### P 14 #### [facility] [address] [place], [place] [address] ALT [Catalytic activity/Vol] 13 U/L Normal 12-78 [facility] Comment on above: Performed By: #### P 14 #### [facility] [address] [place], [place] [address] Albumin [Mass/Vol] 2.2 g/dL Low 3.4-5.0 [facility] Comment on above: Performed By: #### P 14 #### [facility] [address] [place], [place] [address] Anion gap [Moles/Vol] 14 mmol/L Normal 8-16 [facility] Comment on above: Performed By: #### P 14 #### [facility] [address] [place], [place] [address] CO2 [Moles/Vol] 20 mmol/L Low 21-32 [facility] Comment on above: Performed By: #### P 14 #### [facility] [address] [place], [place] [address] Calcium [Mass/Vol] 7.8 mg/dL Low 8.5-10.1 [facility] Comment on above: Performed By: #### P 14 #### [facility] [address] [place], [place] [address] Glucose [Mass/Vol] 73 mg/dL Normal 70-99 [facility] Comment on above: Performed By: #### P 14 #### [facility] [address] [place], [place] [address] Chloride [Moles/Vol] 102 mmol/L Normal 98-107 [facility] [place] [facility] Comment on above: Performed By: #### P 14 #### [facility] [address] [place], [place] [address] Potassium [Moles/Vol] 3.5 mmol/L Normal 3.5-5.1 [facility] Comment on above: Performed By: #### P 14 #### [facility] [address] [place], [place] [address] Sodium [Moles/Vol] 132 mmol/L Low 136-145 [facility] Comment on above: Performed By: #### P 14 #### [facility] [address] [place], [place] [address] ECG COMPLETEon 07-08-2019 ECG COMPLETE NAME : EB HUI PID : [id number] : 2000 Gender : Female Race : ORD : [id number] Procedure Date : Jul 08 2019 04:20:04 Edit Date : Jul 08 2019 14:31:36 Diagnosis:NORMAL SINUS RHYTHM NORMAL ECG NO PREVIOUS ECGS AVAILABLE Confirmed by MD MENDOZA VINAY ([id number]) on 07/08/2019 2:31:29 PM Ventricular Rate : 74 BPM Atrial Rate : 74 BPM P-R Interval : 160 ms QRS Duration : 76 ms Q-T Interval : 400 ms QTC Calculation(Bazett) : 444 ms P Lindsay : 46 degrees R Lindsay : 62 degrees T Lindsay : 48 degrees Test Reason : Chest Pain Location : 6 : CVICU LDR Overread By : MD MENDOZA VINAY Edited By : MD MENDOZA VINAY Referred By : , Acquired by : VELASQUEZ ONEAL [facility] HISTORY PHYSICALon 9 HISTORY PHYSICAL HNO ID: [id number] Author: Jorje Toledo DO Service: Maternal Medicine [...] diagnosed with pre-e CHIEF COMPLAINT: Transfer from [place] HISTORY OF THE PRESENT ILLNESS: The patient is a 19 year old female, , who is at 33w0d here as a transfer of care from [facility] after being diagnosed with preeclampsia with features. Patient was previously admitted at [facility] at 32w5d for preeclampsia without features for observation. At that time, patient had labwork drawn that was overall normal and received 2 doses of betamethasone. She has intermittently had a headache and right upper quadrant pain since that time. She now has persistent right upper quadrant pain that she describes as persistently dull and intermittently sharp. When seen in [facility], she had high mild to severe range blood pressures and was started on Magnesium and sent to [facility]. She denies any current headache. She does [...] Prescriptions Last Dose Informant Patient Reported? Taking? Wgvcwhss-Dq-Cwa-Fe-FA tab No No Sig: Take 1 tablet [...] reviewed for today's visit: Outside chart from [place] reviewed. records reviewed Assessment/Plan 19 year old [...] 08, 2019 TIME: 2:43 AM PAGER/CONTACT #: [phone] Normal [facility] Hemogramon 07-08-2019 Erythrocyte distribution width (RBC) [Ratio] 14.1 % Normal 11.7-14.4 [facility] Comment on above: Performed By: #### C BC1 #### [address] [address] Hematocrit (Bld) [Volume fraction] 29.0 % Low 34.1-44.9 [facility] Comment on above: Performed By: #### C BC1 #### [address] [address] Hemoglobin (Bld) [Mass/Vol] 9.1 g/dL Low 11.2-15.7 [facility] Comment on above: Performed By: #### C BC1 #### [facility] [address] [place], [place] [address] MCH (RBC) [Entitic mass] 27.6 pg Normal 25.6-32.2 [facility] Comment on above: Performed By: #### C BC1 #### [facility] [address] [place], [place] [address] MCHC (RBC) [Mass/Vol] 31.4 % Low 31.6-34.8 [facility] Comment on above: Performed By: #### C BC1 #### [facility] [address] [place] [address] MCV (RBC) [Entitic vol] 87.9 fL Normal 79.4-94.8 [facility] Comment on above: Performed By: #### C BC1 #### [facility] [address] [place] [address] Nucleated RBC (Bld) [#/Vol] 0.02 thou/cmm High 0.00-0.01 [facility] Comment on above: Performed By: #### C BC1 #### [facility] [address] [place] [address] Nucleated RBC/100 WBC (Bld) [Ratio] 0.1 % Normal 0.0-0.2 [facility] Comment on above: Performed By: #### C BC1 #### [facility] [address] [place] [address] Platelet mean volume (Bld) [Entitic vol] 10.9 fL Normal 9.4-12.3 [facility] Comment on above: Performed By: #### C BC1 #### [facility] [address] [place], [place] [address] Platelets (Bld) [#/Vol] 185 thou/cmm Normal 182-369 [facility] Comment on above: Performed By: #### C BC1 #### [facility] [address] [place], [place] [address] RBC (Bld) [#/Vol] 3.30 mil/cmm Low 3.93-5.22 [facility] Comment on above: Performed By: #### C BC1 #### [facility] [address] [place] [address] RDW SD 44.7 fl Normal 36.4-46.3 [facility] Comment on above: Performed By: #### C BC1 #### [place] [id number] WBC (Bld) [#/Vol] 14.74 thou/cmm High 3.98-10.04 [facility] Comment on above: Performed By: #### C BC1 #### [place] [address] MDRD GFRon 07-08-2019 GFR/1.73 sq M predicted among non-blacks MDRD (S/P/Bld) [Vol rate/Area] mL/min/{1.73_m2} Normal >60mL/min/1.73 m2 [facility] Comment on above: Result Comment: If t he patient is , multiply the result by 1.210. Performed By: #### G FR #### [place] [address] Magnesium Bloodon 07-08-2019 Magnesium [Mass/Vol] 5.8 mg/dL Critically high 1.6-2.6 [facility] Comment on above: Result Comment: RESU LT RECHECKED Performed By: #### M AG #### [place] [address] NURSING PROGon 07-08-2019 NURSING PROG HNO ID: [id number] Author: Leydi (Rn) PATIENCE Damico Service: Nursing Author Type: Registered Nurse Type: Nursing Progress Note Filed: 07/08/2019 11:41 AM Note Text: SCN here to see PT. INTERNAL SECURITY MANAGER and Perinatologist. Normal [facility] NURSING PROG HNO ID: [id number] Author: Leydi (Rn) Margaux, PATIENCE Service: Nursing Author Type: Registered Nurse Type: Nursing Progress Note Filed: 07/08/2019 11:40 AM Note Text: Picc line start of use. Magnesium and LR hung into the PICC line with new tubing. [facility] NURSING PROG HNO ID: [id number] Author: Alyssia NegreteRn) PATIENCE Caldwell Service: Nursing Author Type: Registered Nurse Type: Nursing Progress Note Filed: 07/08/2019 11:08 AM Note Text: Patient given educational hand out related to her PICC line placement. Patient verbalizes understanding, no questions at this time. [facility] NURSING PROG HNO ID: [id number] Author: Shana NegreteRn) PATIENCE Dimas Service: ? Author Type: Registered Nurse Type: Nursing Progress Note Filed: 07/08/2019 9:01 AM Note Text: Nursing Progress Note Patient Name: Eb Hui Patient Location: [facility] Special ops called for labs. Unable to obtain x2 attempts. RN notified. This note was completed by: Shana Dimas RN [facility] NUTRITIONon 07-08-2019 NUTRITION HNO ID: [id number] Author: Leydi NegreteRn) PATIENCE Damico Service: Nursing Author Type: Registered Nurse Type: Nutrition Filed: 07/08/2019 11:38 AM Note Text: Magnesium level drawn and sent. Dr. Whitfield is aware . [facility] PROCEDUREon 07-08-2019 PROCEDURE HNO ID: [id number] Author: Cydney NegreteRn) Jose G Causey RN [...] PLACEMENT: Sterile PRIMARY PROCEDURALIST: Cydney Causey RN LABOR ARBITRATOR HEARING OFFICE: Roberta [place] PRE-PROCEDURE REVIEW ALLERGIES No Known [...] Completed Cydney Causey RN CATHETER PLACEMENT Brand: [employer] Lot: [id number] Number of Lumens: 2 Type of PICC: Power Injectable PICC Lumen Size: 5 Tamazight PLACEMENT TECHNIQUE Lidocaine: Yes. Strength: 1% Volume [...] None Patient Education Materials: Placed in chart [facility] Line Insertion Checklist QUESTIONS or PROBLEMS: Call [phone] SIGNATURE: Cydney Causey RN PATIENT NAME: Eb Hui DATE: July 08, 2019 TIME: 10:36 AM PAGER/CONTACT PHONE: [facility] PROGRESSon 07-08-2019 PROGRESS HNO ID: [id number] Author: Jorej Toledo DO Service: Obstetrics Author Type: Resident Type: Progress Notes Filed: 07/08/2019 8:14 PM Note Text: Patient overall comfortable s/p cook catheter removal and morphine. BP 147/86 Pulse 84 Temp 37.2 ?C (99 ?F) (Temporal) Resp 16 Ht 170.2 cm (5' 7) Wt 92.1 kg (203 lb) SpO2 95% BMI 31.79 kg/m? FHT: 130/mod variability/+ accels/- decels [place]: q3-5min Active Hospital Problems Diagnosis Date Noted - Encounter for induction of labor 07/08/2019 Overview Note: - GBS neg - s/p cytotec x3, CC - Pitocin per protocol - AROM prn - Epi prn - Severe preeclampsia, third trimester 07/08/2019 Overview Note: - Features being RUQ pain - BPs mild to severe on admission - CBC/CMP wnl on admission - Magnesium started at [place], currently running 2g/hr. Magnesium level pending - Continue to monitor - Prematurity 07/08/2019 Overview Note: - s/p BMZ 07/06 and 07/07 - Growth at 32w6d 4lb 9oz 42%ile - NICU aware, plan to deliver in the OR - Scoliosis 07/08/2019 Overview Note: - Anesthesia to evaluate for epidural - History of MRSA infection 07/08/2019 Overview Note: - 3 years ago after exposure at [facility] - Vancomycin if for - [...] 9.1 SIGNATURE: Jorje Toledo DO PATIENT NAME: bE Hui DATE: 07/08/2019 TIME: 8:13 PM PAGER: [phone] [facility] PROGRESS HNO ID: [id number] Author: Jorje Toledo DO Service: Obstetrics Author Type: Resident Type: Progress Notes Filed: 07/08/2019 6:19 PM Note Text: Patient uncomfortable, recently received morphine. BP 140/91 Pulse 85 Temp 37.2 ?C (99 ?F) (Temporal) Resp 16 Ht 170.2 cm (5' 7) Wt 92.1 kg (203 lb) SpO2 97% BMI 31.79 kg/m? FHT: 130/mod variability/+ accels/- decels [place]: q2-5min Active Hospital Problems Diagnosis Date Noted [...] - 3 years ago after exposure at [employer] - Vancomycin if for - Pneumonia affecting [...] SIGNATURE: Jorje Toledo DO PATIENT NAME: Eb Hiu DATE: 07/08/2019 TIME: 6:15 PM PAGER: [phone] Normal [facility] PROGRESS HNO ID: [id number] Author: Nancy Gonzales Service: Obstetrics Author Type: [...] FHT closely. Nancy Gonzales DO Pager # [phone] 07/08/2019 2:18 PM Normal [facility] PROGRESS HNO ID: [id number] Author: Nancy (Dread) Janet Service: Obstetrics Author Type: Resident Type: Progress Notes Filed: 07/08/2019 2:16 PM Note Text: S: Patient tolerating contractions. O: BP 139/85 Pulse 118 Temp 36.8 ?C (98.2 ?F) (Temporal) Resp 18 Ht 170.2 cm (5' 7) Wt 92.1 kg (203 lb) SpO2 92% BMI 31.79 kg/m? FHT: 140/moderate variability/+accels/-decel s [place]: q3-6 minutes CE: 1/50/-3 A/P: 19yo at [...] - 3 years ago after exposure at [employer] - Vancomycin if for - Pneumonia affecting [...] recent check. Nancy Gonzales DO Pager # [phone] 07/08/2019 2:16 PM [facility] PROGRESS HNO ID: [id number] Author: Roberta (Rn) PATIENCE [place] Service: PICC [...] for follow-up SUPPLEMENTAL MATERIAL: PICC Line brochure [facility] PROGRESS HNO ID: [id number] Author: Gillian Whitfield Service: Obstetrics Author Type: [...] - 3 years ago after exposure at [employer] - Vancomycin if for - Pneumonia affecting [...] 9:44 AM Obstetrics and Gynecology PGY3 Pager #[phone] [facility] PROGRESS HNO ID: [id number] Author: Gillian Whitfield Service: Obstetrics Author Type: Resident Type: Progress Notes Filed: 07/08/2019 9:42 AM Note Text: CXR reviewed. Findings are suspicious for pneumonia based on this and the patient's productive cough with chest discomfort. We will initiate treatment with amoxicillin and azithromcyin. Reviewed with Dr. Nguyễn. Gillian Whitfield MD 07/08/2019 9:42 AM Obstetrics and Gynecology PGY3 Pager #[phone] Normal [facility] PROGRESS HNO ID: [id number] Author: Gillian Whitfield Service: Obstetrics Author Type: Resident Type: Progress Notes Filed: 07/08/2019 9:32 AM Note Text: Cytotec #2 placed at 0925. Gillian Whitfield MD 07/08/2019 9:32 AM Obstetrics and Gynecology PGY3 Pager #[phone] [facility] PROGRESS HNO ID: [id number] Author: George Nguyễn Jr. Service: ? Author [...] DATE: July 08, 2019 TIME: 9:19 AM [facility] PROGRESS HNO ID: [id number] Author: Gillian Whitfield Service: Obstetrics Author Type: Resident Type: Progress Notes Filed: 07/08/2019 9:06 AM Note Text: Pt has difficult vascular access and will have a PICC inserted per Dr. Nguynễ. Gillian Whitfield MD 07/08/2019 9:06 AM Obstetrics and Gynecology PGY3 Pager #[phone] [facility] PROGRESS HNO ID: [id number] Author: Gillian Whitfield Service: Obstetrics Author Type: [...] 8:26 AM Obstetrics and Gynecology PGY3 Pager #[phone] [facility] PROGRESS HNO ID: [id number] Author: Jorje Toledo DO Service: Obstetrics Author Type: Resident Type: Progress Notes Filed: 07/08/2019 3:43 AM Note Text: On initial interview, patient had denied any chest pain. However with pediatric medical assistant, patient endorsed aching chest pain that began last night. Will obtain EKG at this time. SIGNATURE: Jorje Toledo DO PATIENT NAME: Eb Hui DATE: 07/08/2019 TIME: 3:43 AM PAGER: [phone] [facility] PROGRESS HNO ID: [id number] Author: Nati NegreteRnMeng Huffman RN Service: Nursing Author Type: Registered Nurse Type: Progress Notes Filed: 07/08/2019 2:35 AM Note Text: Pt arrived from [facility] as a transfer. Pt with IV in place on admission as well as Magnesium running at 2Gm/hr and LR at 10cc/hr. Normal [facility] Type and Screenon 07-08-2019 ABO group Nom (Bld) A Normal [facility] Comment on above: Performed By: #### T &S #### [place] [address] Comment See Below Normal [facility] Comment on above: Result Comment: Scre en &/or Xmatch expires in 3 days at 12 midnight. Redraw patient at that time. Performed By: #### T &S #### [place] [address] RH Type Positive Normal [facility] Comment on above: Performed By: #### T &S #### [place] [address] XR CHEST 1V FRONTALon 2018 XR CHEST [...] are most suspicious for pneumonia. Correlate clinically. Window Trimmer Apprentice: PSCB Transcribe Date/Time: Jul 08 2019 9:15A Dictated by : MEDINA TAMAYO MD This examination was interpreted and the report reviewed and electronically signed by: MEDINA TAMAYO MD on Jul 08 2019 9:16AM EST Normal [facility] CULTURE URINEon 05-06-2018 CULTURE URINE CULTURE URINE _URINE CULTURE_ M I C R O B I O L O G Y R E P O R T FINAL --------- Antimicrobial Susceptibility and Organism Identification Report -------- Specimen Number : [id number] Requested : 05/06/18 Specimen Source : URINE Collected : 05/06/18 19:34 Arriaga of Isolation : OUTPATIENT Received : 05/06/18 19:34 Requesting Physician : CRISTA Patient/Specimen Tests and Comments Specimen Comments -------- -------- FINAL REPORT: URINE COLONY COUNT: 50,000-100,000 CFU/CC >OR=TO 3 COLONY TYPES PROBABLE CONTAMINATION Tech : Source : URINE ID # : [id number] FINAL Report Date : / / : Collected : 05/06/18 19:34 05/09/18.0929.JLN. 05/08/18.1041.JLN. 05/09/18.0929.JLN.COMPLETE Normal [facility] Comment on above: Performed By: #### 2 55614 ####[facility],[address] [place] [address] Discharge Summaryon 02-29-[address] Monitor Authentication Interface Message Text Discharge/Transfer SummaryName: Eb Bowie Nakia#: [id number] : 2000Room #: 6221/01 Age/Sex: 18 y.o. femaleAdmit Date: 02/26/2018 Admitting: LAWANDA Changischarge Date: 02/28/2018[facility] Amy Sharp MDFinoscar Diagnosis:Right peritonsillar venous [...] ResultIMPRESSION:1. Right neck mass centered in the warehouse and receiving supervisor space with characteristics on CTand MRI whichfavor [...] MedicationsThese medications were sent to [facility] [address] methylPREDNISolone 4 MG Dose-Emiliano (21 EACH) metroNIDAZOLE 500 MG tabletDischarge Instructions:Instructions/ Follow Up Future Labs/Procedures Expected by Expires [place] State Law: Child Safety Seat Instructions As directed Comments: It is the [place] State Law that every child under 8 years old must ride in anappropriate child safety seat unless the child is 4'9 or taller. Every childfrom 8-15 years old who is not secured in a child safety seat must be secured inthe vehicle's seat belt. [facility] advises that all motorvehicle passengers be [...] they can helpdirect you.Ear, Nose and Throat [address], [address] [address]Strxy: [phone] have been prescribed Flagyl for Bacterial Vaginosis, please take this twicedaily for 7 days. Please follow up with your established Laborer Tree Tapping.Please call your primary care physician Carolann Matthew MD for a follow upappointment in 2-3 days.Carolann Matthew MD[address] [facility] [phone] you are having any difficulty breathing or [...] age As directedSigned:Rosi Soliman MD2:45 PM02/28/2018 Normal [facility] EBV (VCA) IgG Abon 8 EBV (VCA) IgG Ab 4.189735 ISR Normal [facility] Comment on above: Result Comment: POSI TIVEReference Range:Negative: <0.90 ISREquivocal: 0.90-1.09 ISRPositive: >1.09 ISRInterpretation:Results are best interpreted in conjunction with EBV IgMantibody results.-Results suggest prior exposure to Saeed-Pereira Virus.However, a second serum [...] infection withEBV. Performed By: #### E BVIG ####[address] [phone] EBV (VCA) IgM Abon 8 EBV (VCA) IgM Ab 1.249221 ISR Normal [facility] Comment on above: Result Comment: POSI [...] infection withEBV. Performed By: #### E BVIM ####[address] [phone] EBV Nuclear Ag Abson 018 EBV Ab-Nuclear Ag >8.0 Normal [facility] Comment on above: Result Comment: AI V ALUES ARE INTERPRETED FOLLOWS:NEGATIVE SPECIMENS <=0.8EQUIVOCAL SPECIMENS 0.9 TO 1.0POSITIVE SPECIMENS >=1.1 Antibody index(AI) values reflect qualitative changes in antibody concentration that cannot be associated with clinical condition or disease state. Performed By: #### E BVNA ####[address] [phone] EBV Ab-Nuclear Ag, Qual Positive Abnormal NEGAT [facility] Comment on above: Result Comment: Spec imen is positive for EBV NA-1 IgG antibody. A positive test result presumes a current or past infection with EBV. Other EBV serology assays such as the EBV VCA IgM should be performed to confirm serologic status, active acute, past or indeterminate infection for EBV-associated infectious mononucleosis.Testing Performed:[facility] [id number] [place] [address] Performed By: #### E BVNA ####[facility] [place], [place] [phone] MRI NECK WITH AND WITHOUT CO NTRASTon 02-28-2018 MRI NECK WITH AND WITHOUT CONTRAST CLINICAL HISTORY: sore throat x2 weeks, CT w/ R peritonsillar mass w/calcificationTECHNIQUE: MRI of the neck was performed at 3.0 [place] prior to and followingintravenous contrast.COMPARISON: CT of the neck 02/26/2018FINDINGS:There is confirmation of soft tissue mass centered in the right warehouse and receiving supervisor space measuring 3.3 cm AP by 4.1 cm transverse (image 7 of series 5) by 6.8 cmcranioaudal (image 23 series 29). Mass demonstrates diffusely hyperintense. [id number] with foci of known calcification within the [...] on the left at the level of V6fkjtomab 1.3 x 1.4 cm (image 3 of [...] 5).IMPRESSION:1. Right neck mass centered in the warehouse and receiving supervisor space with characteristics on CTand MRI which favor venous malformation.2. Significant adenoid and lingular tonsillar enlargement.3. Bilateral neck adenopathy most prominent in the left upper jugular chain.Recommend ongoing follow-up for the adenopathy to document resolution/decreasein size after treatment.This report has been created using voice recognition softwareSigned by: Dr. Crystal Prieto at 02/28/2018 09:28 Normal [facility] C-Reactive Proteinon 018 C reactive protein (CRP) mg/L Normal 0.0-1.0 [facility] Comment on above: Result Comment: CRP determinations in neonates should be interpreted withcaution. CRP may be elevated in circumstances not associatedwith inflammation (e.g. difficult delivery, pneumothorax). Inpremature neonates CRP levels may not rise to abnormal levelseven if sepsis is present; some speculate that immature liverfunction decreases the ability to generate a CRP response. Performed By: #### C ####[facility] [place], [place] [phone] CT SOFT TISSUE NECK WITH CON TRASTon [...] the oropharynx.3. Enlarged adenoid and palatine tonsils.Dr. Contrreas communicated findings with Dr. Wallace on 02/26/2018 at 5:12 PM withverbal confirmation.This report has been created using voice recognition softwareSigned by: Dr. Virginia Contreras at 02/26/2018 17:23 Normal [facility] Comp Metabolic Panelon 02-26 Alanine aminotransferase (ALT) 13 U/L Normal 0-31 [facility] Comment on above: Performed By: #### C MP ####[address] [phone] Albumin 3.7 g/dL Normal 3.5-5.0 [facility] Comment on above: Performed By: #### C MP ####[address] [phone] Alkaline phosphatase (ALP) 61 U/L Normal 35-104 [facility] Comment on above: Performed By: #### C MP ####[address] [phone] Aspartate aminotransferase (AST) 14 U/L Normal 0-31 [facility] Comment on above: Performed By: #### C MP ####[address] [phone] Bili,Total 0.6 mg/dl Normal 0.0-1.0 [facility] Comment on above: Result Comment: Yoel ature : 1 Day 1.0-6.0 mg/dl 2 Day 6.0-8.0 mg/dl 3-5 Day 10.0-15.0 mg/dl Performed By: #### C MP ####[address] [phone] Calcium 9.0 mg/dL Normal 7.6-11.0 [facility] Comment on above: Performed By: #### C MP ####[address] [phone] Chloride 101 mmol/L Normal 96-108 [facility] Comment on above: Performed By: #### C MP ####[address] [phone] CO2 24.5 mmol/L Normal 22.0-29.0 [facility] Comment on above: Performed By: #### C MP ####[address] [phone] Creatinine 0.78 mg/dL Normal 0.50-1.00 [facility] Comment on above: Result Comment: Yoel ature 0.3-1.0 mg/dL Performed By: #### C MP ####[address] [phone] Glucose mass conc 82 mg/dL Normal 70-99 [facility] Comment on above: Result Comment: David morales for Diagnosis of Diabetes(Effective 02/26/11):Fasting specimen (no caloric intake for at least 8 hours). <100 mg/dl Normal 100-125 mg/dl Increased Risk for Diabetes >125 mg/dl Diagnostic for DiabetesRandom Glucose (any time of day without regard to last meal). >=200 mg/dl plus Classic Symptoms of Diabetes Performed By: #### C MP ####[address] [phone] Potassium molar conc 3.7 mmol/L Normal 3.3-5.1 [facility] Comment on above: Performed By: #### C MP ####[address] [phone] Protein 7.5 g/dL Normal 5.9-8.4 [facility] Comment on above: Performed By: #### C MP ####[address] [phone] Sodium 135 mmol/L Normal 133-145 [facility] Comment on above: Performed By: #### C MP ####[address] [phone] Urea nitrogen 9 mg/dL Normal 4-19 [facility] Comment on above: Performed By: #### C MP ####[address] [phone] Complete Blood Counton 02-26 Differential Complete Manual Normal [facility] Comment on above: Performed By: #### C BC ####[address] [phone] Erythrocyte distribution width Auto Ratio (RBC) 12.5 % Normal 0.0-14.4 [facility] Comment on above: Performed By: #### C BC ####[address] [phone] Erythrocytes (RBC) 4.62 10E12/L Normal 4.00-4.90 [facility] Comment on above: Performed By: #### C BC ####[address] [phone] Hematocrit (HCT) 40.4 % Normal 36.0-44.0 [facility] Comment on above: Performed By: #### C BC ####[address] [phone] Hemoglobin mass conc (Bld) 13.6 g/dL Normal 12.0-15.0 [facility] Comment on above: Performed By: #### C BC ####[address] [phone] Immature granulocytes/100 WBC (Bld) 0.30 % Normal [facility] Comment on above: Result Comment: Amanda ture Granulocyte Percent includes promyelocytes, myelocytes,and metamyelocytes. IG% > 1.0 indicates a left shift ispresent. With automated differentials, bands are includedin the neutrophil count and not in the Immature GranulocytePercent. Performed By: #### C BC ####[address] [phone] MCH 29.4 pg Normal 26.0-34.0 [facility] Comment on above: Performed By: #### C BC ####[address] [phone] MCHC mass conc (RBC) 33.7 % Normal 31.0-37.0 [facility] Comment on above: Performed By: #### C BC ####[address] [phone] MCV 87.4 fL Normal 80.0-100.0 [facility] Comment on above: Performed By: #### C BC ####[address] [phone] Nucleated RBC % 0.0 % Normal -1.0-0.0 [facility] Comment on above: Performed By: #### C BC ####[address] [phone] Platelet mean volume (PMV) 9.4 fL Normal [facility] Comment on above: Result Comment: MPV is plateletrange and agedependent Performed By: #### C BC ####[address] [phone] Platelets 251 10*3/uL Normal 150-450 [facility] Comment on above: Performed By: #### C BC ####[address] [phone] WBC (Leukocytes) 7.8 10*3/uL Normal 4.5-11.0 [facility] Comment on above: Performed By: #### C ####[facility] LORIN Lundberg [phone] H&Hiro 02-26-[address] Monitor Authentication Interface Message Text HISTORY AND PHYSICALDATE OF SERVICE: 02/26/2018ATTENDING PROVIDER: Amy Sharp MDPRIMARY CARE PROVIDER: Carolann Matthew [facility] COMPLAINT: Fatigue, throat pain and muffled voiceREASON [...] which she has undergone some workup with delivery supervisor showing polyps in heruterus, and multiple episodes [...] EnglishTravel: NoPets: Yes: 2 dogsDaycare: senior in [facility] HistoryProblem Relation Age of Onset High [...] plan documented by the resident.Amy Sharp Normal [facility] HCG, Serumon 02-26-2018 HCG Qn Negative Normal [facility] Comment on above: Result Comment: Nonp regnant females and males-Negative females-Positive Performed By: #### H CGS ####[address] [phone] Manual Differentialon 2017 Anisocytosis presence Slight Normal [facility] Comment on above: Performed By: #### M DIFF ####[address] [phone] Lymphocytes/100 leukocytes 41 % Normal 24-44 [facility] Comment on above: Performed By: #### M DIFF ####[address] [phone] Metamyelocytes 0 % Normal 0-0 [facility] Comment on above: Performed By: #### M DIFF ####[address] [phone] Metamyelocytes/100 leukocytes 0 % Normal 0-0 [facility] Comment on above: Performed By: #### M DIFF ####[address] [phone] Monocytes/100 leukocytes 6 % Normal 3-6 [facility] Comment on above: Performed By: #### M DIFF ####[address] [phone] Neutrophils 4.1 Normal [facility] Comment on above: Performed By: #### M DIFF ####[address] [phone] Neutrophils band/100 leukocytes 1 % Low 5-11 [facility] Comment on above: Performed By: #### M DIFF ####[address] [phone] Polychromasia Occasional Normal [facility] Comment on above: Performed By: #### M DIFF ####[address] [phone] Promyelocytes 0 % Normal 0-0 [facility] Comment on above: Performed By: #### M DIFF ####[address] [phone] Segmented Neutrophils/100 leukocytes 52 % Normal 35-66 [facility] Comment on above: Performed By: #### M DIFF ####[address] [phone] Bullock-Screenon 02-26-2018 Bullock-Screen Negative Normal Negative [facility] Comment on above: Result Comment: If i ndicated,an EBV IgM may be of diagnostic value. Performed By: #### M SPOT ####[address] [phone] Progress Noteon 02-26-2018 Court Monitor Authentication Interface Message Text Eb Hui is [...] history is provided by the patient. No ward secretary was used.Review of SystemsReview of Systems:Constitution: Negative [...] patient or family member.Addison Meyers 2017 Normal [facility] Urinalysis,Automatedon 02-26 Erythrocytes (RBC) 0 10*6/uL Normal 0.0-20.0 [facility] Comment on above: Performed By: #### U FMIC ####[address] [phone] Urine, squamous cells in sediment 20 /uL Normal 0-20 [facility] Comment on above: Performed By: #### U FMIC ####[address] [phone] WBC (Leukocytes) 0.016 10*3/uL Normal 0.0-20.0 [facility] Comment on above: Performed By: #### U FMIC ####[address] [phone] Urinalysis,Completeon 2017 Volume 12 ml Normal 12 [facility] Comment on above: Performed By: #### U ACOM ####[address] [phone] Bilirubin,urine Negative Normal Negative [facility] Comment on above: Performed By: #### U ACOM ####[facility] [address] [place], [place] [phone] Hemoglobin mass conc (Bld) Negative Normal Negative [facility] Comment on above: Performed By: #### U ACOM ####[facility] of [address] [phone] Protein,Ur Negative Normal Neg.-Trace [facility] Comment on above: Performed By: #### U ACOM ####[facility] of [address] [phone] Urine, character Hazy Normal [facility] Comment on above: Performed By: #### U ACOM ####[facility] [address] [phone] Urine, color Straw Normal [facility] Comment on above: Performed By: #### U ACOM ####[address] [phone] Urine, glucose presence TRACE Normal Negative [facility] Comment on above: Performed By: #### U ACOM ####[facility] [address] [phone] Urine, ketones presence Negative Normal Negative [facility] Comment on above: Performed By: #### U ACOM ####[facility] [address] [phone] Urine, leukocyte esterase presence Negative Normal Negative [facility] Comment on above: Performed By: #### U ACOM ####[facility] [address] [phone] Urine, nitrite presence Negative Normal Negative [facility] Comment on above: Performed By: #### U ACOM ####[facility] [address] [phone] Urine, pH 8.0 Normal 5.0-8.0 [facility] Comment on above: Performed By: #### U ACOM ####[address] [phone] Urine, specific gravity >1.030 Normal 1.005-1.030 [facility] Comment on above: Performed By: #### U ACOM ####[address] [phone] Urine, urobilinogen 0.2 mg/dl Normal Negative [facility] Comment on above: Performed By: #### U ACOM ####[address] [phone] Urine Cultureon 02-26-2018 Urine culture, bacteria Urine Culture: 10,000 - 50,000 CFU/ml of Normal Skin/urogenital ziggy Source: URNMD Collected: 02/26/18 21:10 Site: Received : 02/26/18 22:41Urine Culture FINAL 02/28/18 08:27 10,000 - 50,000 CFU/ml of Normal Skin/urogenital ziggy present Normal [facility] Comment on above: Performed By: #### U RINE ####[address] [phone] eGFRon 02-26-2018 eGFR (non-black) 88.42 Normal [facility] Comment on above: Result Comment: Refe rence range:> 3 months:>90 ml/min/1.73m^2Ref. Range change [id number]/26/2018 Performed By: #### E GFR ####[address] [phone] Progress Noteon 02-19-2018 Court Monitor Authentication Interface Message Text Patient ID: Eb [...] etiologyMononucleosisPos mono spotPt states she has had Bullock before and that this would be the [...] 71.5 kg, last menstrual period 01/21/2018. Normal [facility] Progress Noteon 06-03-2017 Court Monitor Authentication Interface Message Text Patient ID: Eb [...] C (89 F), weight 73.4 kg. Normal [facility] Progress Noteon 03-21-2017 Court Monitor Authentication Interface Message Text Patient ID: Eb [...] 118, height 166.5 cm, weight 72.6kg. Normal [facility] Progress Noteon 03-12-2017 Court Monitor Authentication Interface Message Text Patient ID: Eb Hui is a 17 y.o. female. Her chief complaint(s)include: Fainting (at work; 1 hour ago, headache now).Assessment:1. Syncope, unspecified syncope typePlan:Eb was seen today for fainting.Diagnoses and all orders for this visit:Syncope, unspecified syncope typeRecommended eating breakfast containing fiber/protein such as oatmeal, eggs,indonesian yogurt, drinking plenty of clear fluids/gatorade, eating [...] She is alert.Skin: Skin is warm. Normal [facility] Influenza virus A and B and SARS-CoV-2 (COVID-19) Ag panel - Upper respiratory specim SARS-CoV-2 (COVID-19) RNA SOL+probe Ql (Resp) [facility] Work Phone: Vital Signs Date Time Vital Sign Value Performing Clinician Faci lity 03-01-2025 14:24-0400 Body height 167.64 cm Petty Ungerer CORE BAKER-C Work Phone: [facility] 03-01-2025 14:24-0400 Body mass index (BMI) [Ratio] 24.8 kg/m2 Petty Ungerer CORE BAKER-C Work Phone: [facility] 03-01-2025 14:24-0400 Body temperature 98.6 [degF] Petty Ungerer CORE BAKER-C Work Phone: [facility] 03-01-2025 14:24-0400 Body weight 69.85 kg Petty Ungerer CORE BAKER-C Work Phone: [facility] 03-01-2025 14:24-0400 Diastolic blood pressure 82 mm[Hg] Petty Ungerer CORE BAKER-C Work Phone: [facility] 03-01-2025 14:24-0400 Heart rate 90 /min Petty Ungerer CORE BAKER-C Work Phone: [facility] 03-01-2025 14:24-0400 Systolic blood pressure 122 mm[Hg] Petty Ungerer CORE BAKER-C Work Phone: [facility] 02-23-2025 06:20-0400 Body height 167.64 cm Petty Ungerer CORE BAKER-C Work Phone: [facility] 02-23-2025 06:20-0400 Body mass index (BMI) [Ratio] 25 kg/m2 Petty Ungerer CORE BAKER-C Work Phone: [facility] 02-23-2025 06:20-0400 Body temperature 98.2 [degF] Petty Ungerer CORE BAKER-C Work Phone: [facility] 02-23-2025 06:20-0400 Body weight 70.3 kg Petty Ungerer CORE BAKER-C Work Phone: [facility] 02-23-2025 06:20-0400 Diastolic blood pressure 76 mm[Hg] Petty Ungerer CORE BAKER-C Work Phone: [facility] 02-23-2025 06:20-0400 Heart rate 76 /min Petty Ungerer CORE BAKER-C Work Phone: [facility] 02-23-2025 06:20-0400 SaO2% (BldA) [Mass fraction] 100 % Petty Ungerer CORE BAKER-C Work Phone: [facility] 02-23-2025 06:20-0400 Systolic blood pressure 109 mm[Hg] Petty Ungerer CORE BAKER-C Work Phone: [facility] 12-17-2024 10:45-0400 Body temperature 97.8 [degF] CORE BAKER. Petty Ungerer CORE BAKER-C Work Phone: [facility] 12-17-2024 10:45-0400 Diastolic blood pressure 59 mm[Hg] CORE BAKER. Petty Ungerer CORE BAKER-C Work Phone: [facility] 12-17-2024 10:45-0400 Heart rate 69 /min CORE BAKER. Petty Ungerer CORE BAKER-C Work Phone: [facility] 12-17-2024 10:45-0400 Respiratory rate 16 /min CORE BAKER. Petty Ungerer CORE BAKER-C Work Phone: [facility] 12-17-2024 10:45-0400 SaO2% (BldA) [Mass fraction] 100 % CORE BAKER. Petty Ungerer CORE BAKER-C Work Phone: [facility] 12-17-2024 10:45-0400 Systolic blood pressure 111 mm[Hg] CORE BAKER. Petty Contreraserer CORE BAKER-C Work Phone: [facility] 12-17-2024 08:37-0400 Body height 167.64 cm CORE BAKER. Petty Contreraserer CORE BAKER-C Work Phone: [facility] 12-17-2024 08:37-0400 Body mass index (BMI) [Ratio] 24.5 kg/m2 CORE BAKER. Petty Contreraserer CORE BAKER-C Work Phone: [facility] 12-17-2024 08:37-0400 Body weight 68.8 kg CORE BAKER. Petty Contreraserer CORE BAKER-C Work Phone: [facility] 12-16-2024 13:31-0400 Body height 166.2 cm Nella Hood MD Work Phone: 12-16-2024 13:31-0400 Body mass index (BMI) [Ratio] 25.03 kg/m2 Nella Hood MD Work Phone: 12-16-2024 13:31-0400 Body weight 69.13 kg Nella Hood MD Work Phone: 12-16-2024 13:31-0400 Diastolic blood pressure 68 mm[Hg] Nella Hood MD Work Phone: 12-16-2024 13:31-0400 Heart rate 76 /min Nella Hood MD Work Phone: 12-16-2024 13:31-0400 Respiratory rate 16 /min Nella Hood MD Work Phone: 12-16-2024 13:31-0400 Systolic blood pressure 112 mm[Hg] Nella Hood MD Work Phone: 10-26-2024 15:01-0500 Body mass index (BMI) [Ratio] 24.55 kg/m2 Yordan Smalls APRN.TOOL REPAIRER BENCH Work Phone: 10-26-2024 15:01-0500 Body temperature 98.2 [degF] Yordan Smalls APRN.TOOL REPAIRER BENCH Work Phone: 10-26-2024 15:01-0500 Body weight 71.1 kg Yordan Smalls APRN.TOOL REPAIRER BENCH Work Phone: 10-26-2024 15:01-0500 Diastolic blood pressure 72 mm[Hg] Yordan Smalls APRN.TOOL REPAIRER BENCH Work Phone: 10-26-2024 15:01-0500 Heart rate 60 /min Yordan Smalls APRN.TOOL REPAIRER BENCH Work Phone: 10-26-2024 15:01-0500 Respiratory rate 16 /min Yordan Smalls APRN.TOOL REPAIRER BENCH Work Phone: 10-26-2024 15:01-0500 SaO2% (BldA) [Mass fraction] 98 % Yordan Smalls APRN.TOOL REPAIRER BENCH Work Phone: 10-26-2024 15:01-0500 Systolic blood pressure 122 mm[Hg] Yordan Smalls APRN.TOOL REPAIRER BENCH Work Phone: 10-26-2024 08:12-0500 Body height 170.2 cm Petty Rubalcava APRN.CNM Work Phone: 10-26-2024 08:12-0500 Body mass index (BMI) [Ratio] 24.28 kg/m2 Petty Rubalcava APRN.CNM Work Phone: 10-26-2024 08:12-0500 Body weight 70.31 kg Petty Rubalcava APRN.CNM Work Phone: 10-26-2024 08:12-0500 Diastolic blood pressure 70 mm[Hg] Petty Rubalcava PLASTIC BATTERY ASSEMBLER.CNM Work Phone: 10-26-2024 08:12-0500 Systolic blood pressure 112 mm[Hg] Petty Rubalcava PLASTIC BATTERY ASSEMBLER.CNM Work Phone: 08-07-2024 11:34-0500 Body mass index (BMI) [Ratio] 24.59 kg/m2 Lynn Smalls MD Work Phone: 08-07-2024 11:34-0500 Body weight 71.22 kg Lynn Smalls MD Work Phone: 08-07-2024 11:34-0500 Diastolic blood pressure 82 mm[Hg] Lynn Smalls MD Work Phone: 08-07-2024 11:34-0500 Systolic blood pressure 124 mm[Hg] Lynn Smalls MD Work Phone: 12-23-2023 17:47-0400 Body temperature 99 [degF] Petty Uriostegui PLASTIC BATTERY ASSEMBLER.TOOL REPAIRER BENCH Work Phone: 12-23-2023 17:47-0400 Body weight 76 kg Petty Uriostegui PLASTIC BATTERY ASSEMBLER.TOOL REPAIRER BENCH Work Phone: 12-23-2023 17:47-0400 Diastolic blood pressure 78 mm[Hg] Petty Uriostegui PLASTIC BATTERY ASSEMBLER.TOOL REPAIRER BENCH Work Phone: 12-23-2023 17:47-0400 Heart rate 81 /min Petty Uriostegui PLASTIC BATTERY ASSEMBLER.TOOL REPAIRER BENCH Work Phone: 12-23-2023 17:47-0400 Respiratory rate 21 /min Petty Uriostegui PLASTIC BATTERY ASSEMBLER.TOOL REPAIRER BENCH Work Phone: 12-23-2023 17:47-0400 SaO2% (BldA) [Mass fraction] 99 % Petty Uriostegui PLASTIC BATTERY ASSEMBLER.TOOL REPAIRER BENCH Work Phone: 12-23-2023 17:47-0400 Systolic blood pressure 118 mm[Hg] Pettycierra Bojorquezgs PLASTIC BATTERY ASSEMBLER.TOOL REPAIRER BENCH Work Phone: 11-03-2023 13:38-0500 Body temperature 99.1 [degF] Ricardo Campuzano PLASTIC BATTERY ASSEMBLER.TOOL REPAIRER BENCH Work Phone: 11-03-2023 13:38-0500 Body weight 73.66 kg Ricardo Campuzano PLASTIC BATTERY ASSEMBLER.TOOL REPAIRER BENCH Work Phone: 11-03-2023 13:38-0500 Diastolic blood pressure 88 mm[Hg] Ricardo Campuzano PLASTIC BATTERY ASSEMBLER.TOOL REPAIRER BENCH Work Phone: 11-03-2023 13:38-0500 Heart rate 105 /min Ricardo Campuzano PLASTIC BATTERY ASSEMBLER.TOOL REPAIRER BENCH Work Phone: 11-03-2023 13:38-0500 Respiratory rate 21 /min Ricardo Campuzano PLASTIC BATTERY ASSEMBLER.TOOL REPAIRER BENCH Work Phone: 11-03-2023 13:38-0500 SaO2% (BldA) [Mass fraction] 98 % Ricardo Campuzano PLASTIC BATTERY ASSEMBLER.TOOL REPAIRER BENCH Work Phone: 11-03-2023 13:38-0500 Systolic blood pressure 120 mm[Hg] Ricardo Campuzano PLASTIC BATTERY ASSEMBLER.TOOL REPAIRER BENCH Work Phone: 08-21-2023 19:13-0500 Body temperature 98.1 [degF] Leif Sahu PLASTIC BATTERY ASSEMBLER.TOOL REPAIRER BENCH Work Phone: 08-21-2023 19:13-0500 Body weight 74.21 kg Leif Sahu PLASTIC BATTERY ASSEMBLER.TOOL REPAIRER BENCH Work Phone: 08-21-2023 19:13-0500 Diastolic blood pressure 74 mm[Hg] Leif Sahu PLASTIC BATTERY ASSEMBLER.TOOL REPAIRER BENCH Work Phone: 08-21-2023 19:13-0500 Heart rate 100 /min Leif Sahu PLASTIC BATTERY ASSEMBLER.TOOL REPAIRER BENCH Work Phone: 08-21-2023 19:13-0500 Respiratory rate 21 /min [facility] PLASTIC BATTERY ASSEMBLER.TOOL REPAIRER BENCH Work Phone: 08-21-2023 19:13-0500 SaO2% (BldA) [Mass fraction] 98 % [facility] PLASTIC BATTERY ASSEMBLER.TOOL REPAIRER BENCH Work Phone: 08-21-2023 19:13-0500 Systolic blood pressure 110 mm[Hg] [facility] PLASTIC BATTERY ASSEMBLER.TOOL REPAIRER BENCH Work Phone: 07-28-2023 21:52-0500 Body height 167.64 cm No Primary Care Physician [facility] 07-28-2023 21:52-0500 Body mass index (BMI) [Ratio] 25.8 kg/m2 No Primary Care Physician [facility] 07-28-2023 21:52-0500 Body temperature 97.8 [degF] No Primary Care Physician [facility] 07-28-2023 21:52-0500 Body weight 72.57 kg No Primary Care Physician [facility] 07-28-2023 21:52-0500 Diastolic blood pressure 95 mm[Hg] No Primary Care Physician [facility] 07-28-2023 21:52-0500 Heart rate 71 /min No Primary Care Physician [facility] 07-28-2023 21:52-0500 Respiratory rate 16 /min No Primary Care Physician [facility] 07-28-2023 21:52-0500 SaO2% (BldA) [Mass fraction] 99 % No Primary Care Physician [facility] 07-28-2023 21:52-0500 Systolic blood pressure 138 mm[Hg] No Primary Care Physician [facility] 07-16-2023 19:25-0400 Body temperature 98.6 [degF] Liza BRANCH-C Work Phone: 07-16-2023 19:25-0400 Body weight 74.84 kg Liza Friedman PA-C Work Phone: 07-16-2023 19:25-0400 Diastolic blood pressure 80 mm[Hg] Liza Friedman PA-C Work Phone: 07-16-2023 19:25-0400 Heart rate 98 /min Liza Athy PA-C Work Phone: 07-16-2023 19:25-0400 Respiratory rate 16 /min Liza Athy PA-C Work Phone: 07-16-2023 19:25-0400 SaO2% (BldA) [Mass fraction] 99 % Liza Athy PA-C Work Phone: 07-16-2023 19:25-0400 Systolic blood pressure 122 mm[Hg] Liza Athy PA-C Work Phone: 06-12-2023 09:10-0400 Diastolic blood pressure 88 mm[Hg] No Primary Care Physician [facility] 06-12-2023 09:10-0400 Heart rate 74 /min No Primary Care Physician [facility] 06-12-2023 09:10-0400 Respiratory rate 16 /min No Primary Care Physician [facility] 06-12-2023 09:10-0400 SaO2% (BldA) [Mass fraction] 99 % No Primary Care Physician [facility] 06-12-2023 09:10-0400 Systolic blood pressure 132 mm[Hg] No Primary Care Physician [facility] 06-12-2023 06:46-0400 Body height 167.64 cm No Primary Care Physician [facility] 06-12-2023 06:46-0400 Body mass index (BMI) [Ratio] 26.4 kg/m2 No Primary Care Physician [facility] 06-12-2023 06:46-0400 Body temperature 96.6 [degF] No Primary Care Physician [facility] 06-12-2023 06:46-0400 Body weight 74.4 kg No Primary Care Physician [facility] 04-23-2023 14:52-0400 Body temperature 97.7 [degF] Elizabeth Gomez PA Work Phone: 04-23-2023 14:52-0400 Body weight 72.58 kg Ministerioisrita Aberegg PA Work Phone: 04-23-2023 14:52-0400 Diastolic blood pressure 62 mm[Hg] Krislyn Aberegg PA Work Phone: 04-23-2023 14:52-0400 Heart rate 72 /min Krislyn Aberegg PA Work Phone: 04-23-2023 14:52-0400 Respiratory rate 18 /min Krislyn Aberegg PA Work Phone: 04-23-2023 14:52-0400 Systolic blood pressure 110 mm[Hg] Krislyn Aberegg PA Work Phone: 03-03-2023 11:56-0400 Body temperature 97.8 [degF] [facility] 03-03-2023 11:56-0400 Diastolic blood pressure 78 mm[Hg] [facility] 03-03-2023 11:56-0400 Heart rate 78 /min [facility] 03-03-2023 11:56-0400 Respiratory rate 14 /min [facility] 03-03-2023 11:56-0400 SaO2% (BldA) [Mass fraction] 100 % [facility] 03-03-2023 11:56-0400 Systolic blood pressure 118 mm[Hg] [facility] 03-03-2023 08:40-0400 Body height 167.64 cm [facility] 03-03-2023 08:40-0400 Body mass index (BMI) [Ratio] 25.8 kg/m2 [facility] 03-03-2023 08:40-0400 Body weight 72.57 kg [facility] 02-21-2023 15:05-0400 Body temperature 98.01 [degF] Krislyn Aberegg PA Work Phone: 02-21-2023 15:05-0400 Body weight 72.94 kg Krislyn Aberegg PA Work Phone: 02-21-2023 15:05-0400 Diastolic blood pressure 86 mm[Hg] Krislyn Aberegg PA Work Phone: 02-21-2023 15:05-0400 Heart rate 98 /min Krislyn Aberegg PA Work Phone: 02-21-2023 15:05-0400 Respiratory rate 18 /min Krislyn Aberegg PA Work Phone: 02-21-2023 15:05-0400 SaO2% (BldA) [Mass fraction] 97 % Krislyn Aberegg PA Work Phone: 02-21-2023 15:05-0400 Systolic blood pressure 122 mm[Hg] Krislyn Aberegg PA Work Phone: 01-03-2023 10:56-0400 Body height 170.2 cm Pacc 1 Work Phone: 01-03-2023 10:56-0400 Body weight 75.3 kg Pacc 1 Work Phone: 01-03-2023 10:56-0400 Respiratory rate 16 /min Pacc 1 Work Phone: 01-03-2023 10:56-0400 SaO2% (BldA) [Mass fraction] 97 % Pacc 1 Work Phone: 09-16-2022 21:13-0500 Body height 172.72 cm [facility] Work Phone: 09-16-2022 21:13-0500 Body mass index (BMI) [Ratio] 24.6 kg/m2 [facility] Work Phone: 09-16-2022 21:13-0500 Body temperature 98.2 [degF] [facility] Work Phone: 09-16-2022 21:13-0500 Body weight 73.48 kg [facility] Work Phone: 09-16-2022 21:13-0500 Diastolic blood pressure 73 mm[Hg] [facility] Work Phone: 09-16-2022 21:13-0500 Heart rate 119 /min [facility] Work Phone: 09-16-2022 21:13-0500 Respiratory rate 16 /min [facility] Work Phone: 09-16-2022 21:13-0500 SaO2% (BldA) [Mass fraction] 100 % [facility] Work Phone: 09-16-2022 21:13-0500 Systolic blood pressure 124 mm[Hg] [facility] Work Phone: 01-02-2022 12:13-0400 Body weight 79.83 kg Roberta Guthrie MD Work Phone: 12-06-2020 11:00-0400 Body Temperature 97.3 [degF] Inderpartap [...] End: 03-01-2025 Patient encounter procedure Tomás [facility] Work Phone: Start: 03-01-2025 End: 03-01-2025 ambulatory Petty Lopezr CORE BAKER-C Work Phone: [facility] Work Phone: Start: 02-23-2025 End: 02-23-2025 Patient encounter procedure Tomás [place] [facility] Work Phone: Start: 02-23-2025 End: 02-23-2025 ambulatory Petty Vasquez CORE BAKER-C Work Phone: [facility] Work Phone: Start: 02-09-2025 End: 02-09-2025 ambulatory HEATHER NICOLA [facility] Start: 01-12-2025 End: 01-12-2025 ambulatory MELQUIADES ELLIE QUINTANILLA [facility] Start: 12-23-2024 End: 12-24-2024 Telephone encounter Nella Hood MD Work Phone: OB/Gynecology Comment on above: Results Start: 12-17-2024 End: 12-17-2024 Admission to same day surgery center Dr Nella Ward MD -[facility] Start: 12-17-2024 End: 12-17-2024 ambulatory CORE BAKER. Petty Lopezr CORE BAKER-C Work Phone: [facility] Work Phone: Start: 12-16-2024 End: 12-16-2024 ambulatory NELLA HOOD Facility:[facility] Start: 12-16-2024 End: 12-16-2024 Patient encounter procedure Nella Hood MD Work Phone: OB/Gynecology Comment on above: Abnormal uterine ble eding (AUB) (Primary Dx); Endometrial polyp; Pre-op exam Start: 12-16-2024 End: 12-16-2024 Preprocedural examination done Nella Hood MD Work Phone: Start: 11-17-2024 End: 12-04-2024 E-mail encounter from [...] Start: 10-30-2024 End: 11-02-2024 Telephone encounter Petty Rubaclava CNM Work Phone: OB/Gynecology Comment on above: Results Start: 10-29-2024 End: 10-29-2024 Patient encounter procedure [employer] [facility]/Gynecology Start: 10-29-2024 End: 10-29-2024 ambulatory [employer] [facility] [employer] Work Phone: OB/Gynecology Comment on above: Arrived Start: 10-27-2024 End: 10-27-2024 Telephone encounter Yordan Smalls APRN.TOOL REPAIRER BENCH Work Phone: [facility] Comment on above: Results Start: 10-26-2024 End: 10-26-2024 ambulatory MELQUIADES QUINTANILLA Facility:[facility] Start: 10-26-2024 End: 10-26-2024 Patient encounter procedure Yordan Smalls APRN.TOOL REPAIRER BENCH Work Phone: [facility] Comment on above: Urinary frequency (P rimary Dx); Unprotected sex Start: 10-26-2024 End: 10-26-2024 ambulatory PETTY RUBALCAVA Facility:[facility] Start: 10-26-2024 End: 10-26-2024 [facility] Start: 10-26-2024 End: 10-26-2024 Patient encounter procedure [...] encounter status Petty Khadar AMIN Work Phone: Start: 08-07-2024 End: 08-07-2024 ambulatory LYNN SMALLS Facility:[facility] Start: 08-07-2024 End: 08-07-2024 Patient encounter procedure Lynn Smalls MD Work Phone: OB/Gynecology Comment on above: Fibrocystic breast c hanges of both breasts (Primary Dx) Start: 07-02-2024 End: 07-02-2024 ambulatory [facility] [place] Start: 04-06-2024 End: 04-06-2024 Emergency department patient visit [facility] Facility:[facility] Start: 12-24-2023 Telephone encounter Willow Faustin APRN.TOOL REPAIRER BENCH Work Phone: [facility] Comment on above: Results Start: 12-23-2023 End: 12-23-2023 Patient encounter procedure Petty Uriostegui APRN.TOOL REPAIRER BENCH Work Phone: [facility] Comment on above: Encounter for sexual ly transmitted disease counseling (Primary Dx); Dysuria; Vaginal discharge Start: 11-11-2023 Telephone encounter Aliya Mcdaniels MD Work Phone: [facility] Comment on above: Appointment Start: 11-03-2023 End: 11-03-2023 Patient encounter procedure Ricardo Campuzano APRN.TOOL REPAIRER BENCH Work Phone: [facility] Comment on above: Lower resp. tract in fection (Primary Dx) Start: 08-21-2023 End: 08-21-2023 Office outpatient visit 25 minutes Leif Sahu APRN.TOOL REPAIRER BENCH Work Phone: [facility] Comment on above: Lower respiratory tr act infection (Primary Dx) Start: 07-28-2023 End: 07-28-2023 Emergency department patient visit No Primary Care Physician [facility] Work Phone: Start: 07-16-2023 End: 07-16-2023 Subsequent hospital visit by physician Kelsy [facility] Work Phone: Radiology Comment on above: Hemoptysis [R04.2] Start: 07-16-2023 End: 07-16-2023 Patient encounter procedure Liza Friedman PA-C Work Phone: [facility] Comment on above: Viral illness (Prima ry Dx); Hemoptysis Start: 07-11-2023 Telephone encounter Yordan Smalls APRN.TOOL REPAIRER BENCH Work Phone: [facility] Comment on above: Results Start: 06-13-2023 Telephone encounter Carmen Parker Work Phone: Infectious Disease Comment on above: Education Of Patient /family (HIV PrEP outreach) Start: 06-12-2023 End: 06-12-2023 Emergency department patient visit No [facility] Work [facility]: Start: 05-23-2023 Telephone encounter Willow Faustin APRN.TOOL REPAIRER BENCH Work Phone: [facility] Comment on above: Results Start: 05-16-2023 End: 05-16-2023 Patient encounter procedure No Primary Care Physician [facility] Work Phone: Start: 04-26-2023 Telephone encounter Aliya Mcdaniels MD Work Phone: [facility] Comment on above: Appointment (Missed Appointment.) Start: 04-24-2023 Telephone encounter Elizabeth BRANCH Work Phone: [facility] Comment on above: Results Start: 04-23-2023 End: 04-23-2023 Patient encounter procedure Elizabeth BRANCH Work Phone: [facility] Comment on above: Vaginal discharge (P rimary Dx) Start: 04-23-2023 Registered Recurring No Primar y Care Physician Employee Health-Employee Health Start: 03-03-2023 End: 03-03-2023 Emergency department patient visit [facility] Work Phone: Start: 02-22-2023 Telephone encounter Willow Burton connieAram JANI Work Phone: [facility] Comment on above: Results script not at pharma cy Start: 02-21-2023 End: 02-21-2023 Patient encounter procedure Elizabeth BRANCH Work Phone: [facility] Comment on above: Burning with urinati on (Primary Dx); Screening for STD (sexually transmitted disease); Vaginal discharge Start: 02-01-2023 ambulatory Aliya Mcdaniels MD Work Phone: [facility] Comment on above: bleomycin side effec ts Pruritus (Primary Dx ) Start: 01-03-2023 End: 01-03-2023 ambulatory ALIYA MCDANIELS Facility:[facility] Start: 01-03-2023 Encounter for other preprocedural examination ALIYA [facility] Start: 01-03-2023 End: 01-03-2023 Admission to [place] [id number] Work Phone: [facility] Start: 01-03-2023 End: 01-03-2023 ambulatory [place] [address] Work Phone: Pre Anesthesia Comment on above: Pre-op evaluation (P rimary Dx); AVM (arteriovenous malformation); Mild major depression (HCC); Smoker; Frequent UTI; History of scoliosis Start: 01-03-2023 End: 01-03-2023 Preprocedural examination done [place] [address] Work Phone: Pre Anesthesia Start: 12-19-2022 Admission to same da y surgery center Ailya Mcdaniels MD Work Phone: [facility] Comment on above: Schedule Surgery Start: 12-19-2022 ambulatory Aliya Mcdaniels MD Work Phone: [facility] Start: 11-28-2022 End: 11-28-2022 ambulatory Ricco Mullins MD Work Phone: Otolaryngology Comment on above: Oropharyngeal lesion (Primary Dx) Start: 11-28-2022 End: 11-28-2022 Telemedicine consultation with patient Ricco Mullins MD Work Phone: [facility] Start: 11-16-2022 ambulatory Ricco sawyer MD Work Phone: Otolaryngology Comment on above: Start: 11-08-2022 Telephone encounter Shazia keith MD Work Phone: OB/Gynecology Comment on above: Positive home UPT Start: 09-16-2022 End: 09-16-2022 [facility] Start: 02-16-2022 Telephone encounter Nella Hood MD Work Phone: OB/Gynecology Comment on above: Vaginal Problem Start: 01-07-2022 Refill Robreta gonsales MD Work Phone: OB/Gynecology Comment on above: Refill Request Start: 01-03-2022 Telephone encounter Roberta Guthrie MD Work Phone: OB/Gynecology Comment on above: Results Start: 01-02-2022 E-mail encounter fro m caregiver [facility] Provider [facility] Start: 01-02-2022 End: 01-02-2022 Patient encounter procedure Roberta Guthrie MD Work Phone: OB/Gynecology Comment on above: Vaginal irritation ( Primary Dx); Irritant contact dermatitis, unspecified trigger Appointment 01-09-22 at 9:00 am Start: 10-04-2021 ambulatory DOMENICA KRISHNAN Facility: [facility] Start: 09-28-2021 ambulatory DIPAK ROSE Facility:[facility] Start: 09-19-2021 ambulatory DIPAK ROSE Facility:[facility] Start: 01-10-2021 End: 01-10-2021 Subsequent hospital visit by physician Kelsy [facility] Work Phone: Radiology Comment on above: Cough [R05] Start: 12-06-2020 End: 12-06-2020 Evaluation and management of inpatient Jairoerdorysap Ramo Ortega Work Phone: [facility] Start: 05-07-2018 End: 05-07-2018 Patient encounter ROSEANN TOBIN Cj [facility] Start: 02-26-2018 End: 02-26-2018 Ambulatory CARLOS ALBERTO Rivera CHRISAmos [facility] Start: 02-26-2018 End: 02-28-2018 Evaluation and management of inpatient [facility] Start: 02-19-2018 End: 02-19-2018 Ambulatory [facility] Start: 06-03-2017 End: 06-03-2017 Ambulatory [facility] Start: 03-21-2017 End: 03-21-2017 Ambulatory [facility] Start: 03-12-2017 End: 03-12-2017 Ambulatory EUNICE CONNOR [facility] Procedures Date Procedure Procedure Detail Performing Clinician Start: 12-17-2024 Hysteroscopy CORE BAKER. Michael Vasquez CORE BAKER-C Work Phone: Start: 12-17-2024 Estimated creatinine clearance Petty Vasquez CORE BAKER-C Work Phone: Start: 10-29-2024 Us pelvic nonobstetr ic real-time image complete Petty Rubalcava PLASTIC BATTERY ASSEMBLER.CNM Work Phone: Start: 10-26-2024 Urnls dip stick/tabl et rgnt auto w/o microscopy Yordan Smalls PLASTIC BATTERY ASSEMBLER.TOOL REPAIRER BENCH Work Phone: Start: 12-23-2023 Urnls dip stick/tabl et rgnt auto w/o microscopy Petty Uriostegui PLASTIC BATTERY ASSEMBLER.TOOL REPAIRER BENCH Work Phone: Start: 07-16-2023 Radiologic exam ches [...] above: Performed By: #### T &S #### [place] [address] SARS-CoV-2 & FLU Ant igen (Rapid) Plan of Treatment Date Care Activity Detail Author Start: 06-02-2029 Urine microalbumin profile Start: 10-26-2027 Screening for malign ant neoplasm of cervix Cervical Cancer Screening Start: 12-22-2024 GC (Gonorrhea) Scree chloé () GC (Gonorrhea) Screening () Start: 12-22-2024 Screening for Chlamy jesu trachomatis Chlamydia Screening () Start: 12-17-2024 Anes hysteroscopy&/hysterosal pingography w/bx ANESTH HYSTEROSCOPE/GRAPH [facility] Start: 12-17-2024 Hysteroscopy bx endometrium&/polypc w/wo d&c HYSTEROSCOPY BIOPSY [facility] Start: 12-17-2024 Ambulation without limitation [facility] Start: 12-17-2024 Medical regimen orde rs management [facility] Start: 12-17-2024 Medication education [facility] Start: 12-17-2024 Patient discharge [facility] Start: 12-17-2024 Procedure discontinued [facility] Start: 12-17-2024 Taking patient vital signs [facility] Start: 12-17-2024 Vital signs measurements [facility] Start: 12-17-2024 [facility] Start: 12-08-2024 End: 12-08-2024 Patient encounter procedure 12/08/2024 8:40 AM EDT Office Visit OB/Gynecology [address] [place] [address] Nella John MD [address] [place] [address] surgery 12/17 OB/Gynecology Comment on above: surgery 12/17 Start: 11-17-2024 End: 11-17-2024 Follow-up encounter 11/17/2024 3:30 PM EST [facility] OB/Gynecology [address] [place] [address] Petty Rubalcava APRN.CN [address] [place] [address] 2 week follow up OB/Gynecology Comment on above: 2 week follow up Start: 11-13-2024 End: 11-13-2024 Patient encounter procedure 11/13/2024 8:00 AM EST Office Visit Urology [address] [place] [address] Catrachita Devlin PA [address] [place] [address] Dysuria [R30.0] Urology Comment on above: Dysuria [R30.0] Start: 11-04-2024 End: 11-04-2024 Follow-up encounter 11/04/2024 3:15 PM EST [facility] OB/Gynecology [address] [place] [address] Petty Rubalcava APRN.CN [address] [place] [address] 2 week follow up OB/Gynecology Comment on above: 2 week follow up Start: 10-29-2024 End: 10-29-2024 ambulatory 10/29/2024 2:00 PM EST Procedure OB/Gynecology [address] [place] [address] [facility], Strategic Account Executive [facility] [address] [place] [address] Abnormal uterine bleeding (AUB) [N93.9] OB/Gynecology Comment on above: Abnormal uterine ble eding (AUB) [N93.9] Start: 10-26-2024 End: 01-25-2025 DHEA-S BLD Comment on above: Expected: 10/26/2024 , Expires: 01/25/2025 Start: 10-26-2024 End: 01-25-2025 Hemoglobin A1c in Blood Comment on above: Expected: 10/26/2024 , Expires: 01/25/2025 Start: 10-26-2024 End: 01-25-2025 Prolactin [Mass/volume] in Serum or Plasma Comment on above: Expected: 10/26/2024 , Expires: 01/25/2025 Start: 10-26-2024 End: 01-25-2025 TESTOSTERONE, FREE AND TOTAL, BY EQUILIBRIUM ULTRAFILTRATION MASS SPECTROMETRY Comment on above: Expected: 10/26/2024 , Expires: 01/25/2025 Start: 10-26-2024 End: 01-25-2025 Thyrotropin [Units/volume] in Serum or Plasma Comment on above: Expected: 10/26/2024 , Expires: 01/25/2025 Start: 10-26-2024 End: 10-26-2025 US Pelvis PELVIC US [facility] Anc Imaging Routine Abnormal uterine bleeding (AUB) Expected: 10/26/2024, Expires: 10/26/2025 Comment on above: Expected: 10/26/2024 , Expires: 10/26/2025 Start: 06-20-2024 Chlamydia Screening () Chlamydia Screening () Start: 06-20-2024 GC (Gonorrhea) Scree chloé (18) GC (Gonorrhea) Screening () Start: 06-20-2024 Screening for Chlamy jesu trachomatis Chlamydia Screening () Start: 05-24-2024 Covid-19 Vaccine () Covid-19 Vaccine () Start: 05-24-2024 Covid-19 Vaccine ( season) Covid-19 Vaccine ( season) Start: 05-24-2024 Influenza vaccination C [facility] Start: 05-22-2024 CHLAMYDIA SCREENING (18-24) CHLAMYDIA SCREENING (18-24) Start: 05-22-2024 GC (GONORRHEA) SCREE CHLOÉ (18-24) GC (GONORRHEA) SCREENING (18-24) Start: 04-23-2024 CHLAMYDIA SCREENING (18-24) CHLAMYDIA SCREENING (18-24) Start: 04-23-2024 GC (GONORRHEA) SCREE CHLOÉ (18-24) GC (GONORRHEA) SCREENING (18-24) Start: 02-22-2024 CHLAMYDIA SCREENING (18-24) CHLAMYDIA SCREENING (18-24) Start: 02-22-2024 GC (GONORRHEA) SCREE CHLOÉ (18-24) GC (GONORRHEA) SCREENING (18-24) Start: 07-02-2023 CHLAMYDIA SCREENING (18-24) CHLAMYDIA SCREENING (18-24) Start: 07-02-2023 GC (GONORRHEA) SCREE CHLOÉ (18-24) GC (GONORRHEA) SCREENING (18-24) Start: 06-13-2023 End: 08-13-2023 HIV 1+2 Ab [Presence] in Serum or Plasma by Immunoassay HIV 1 2 COMBO(AG/AB),WITH REFLEX TO DIFFERENTIATION Lab Routine Screening for HIV (human immunodeficiency virus) Expected: 06/13/2023, Expires: 08/13/2023 [facility] Work Phone: Comment on above: Expected: 06/13/2023 , Expires: 08/13/2023 Start: 06-12-2023 CT angiography of ch est with contrast CTA Chest W/WO Contrast [facility] Start: 06-12-2023 CTA Chest vessels WO and W contrast IV [facility] Start: 06-12-2023 Blood chemistry [facility] Start: 06-12-2023 End: 06-12-2023 [facility] Start: 05-24-2023 Covid-19 Vaccine ( season) Covid-19 Vaccine ( season) Start: 05-24-2023 Influenza vaccination C [facility] Start: 01-02-2023 CHLAMYDIA SCREENING () CHLAMYDIA SCREENING () Start: 01-02-2023 GC (GONORRHEA) SCREE CHLOÉ (18) GC (GONORRHEA) SCREENING () Start: 12-20-2022 End: 02-19-2023 Basic metabolic 2000 panel - Serum or Plasma BASIC METABOLIC PNL Lab Routine AVM (arteriovenous malformation) Expected: 12/20/2022, Expires: 02/19/2023 [facility] Work Phone: Comment on above: Expected: 12/20/2022 , Expires: 02/19/2023 Start: 12-20-2022 End: 02-19-2023 CBC panel - Blood by Automated count CBC Lab Routine AVM (arteriovenous malformation) Expected: 12/20/2022, Expires: 02/19/2023 [facility] Work Phone: Comment on above: Expected: 12/20/2022 , Expires: 02/19/2023 Start: 12-20-2022 End: 02-19-2023 TYPE AND SCREEN,30 DAY TYPE AND SCREEN,30 DAY Blood Bank Routine AVM (arteriovenous malformation) Expected: 12/20/2022, Expires: 02/19/2023 [facility] Work Phone: Comment on above: Expected: 12/20/2022 , Expires: 02/19/2023 Start: 12-19-2022 End: 02-18-2023 CONFIRM BLOOD TYPE CONFIRM BLOOD TYPE Blood Bank Routine AVM (arteriovenous malformation) Expected: 12/19/2022, Expires: 02/18/2023 [facility] Work Phone: Comment on above: Expected: 12/19/2022 , Expires: 02/18/2023 Start: 11-08-2022 End: 01-08-2023 Choriogonadotropin.beta subunit [Units/volume] in Serum or Plasma HCG QUANTITATIVE Lab Routine Positive urine test Expected: 11/08/2022, Expires: 01/08/2023 [facility] Work Phone: Comment on above: Expected: 11/08/2022 , Expires: 01/08/2023 Start: 07-06-2022 CHLAMYDIA SCREENING (18-24) CHLAMYDIA SCREENING (18-24) Start: 07-06-2022 GC (GONORRHEA) SCREE CHLOÉ (18-24) GC (GONORRHEA) SCREENING (18-24) Start: 05-24-2022 Influenza vaccination C [facility] Start: 01-02-2022 End: 03-04-2022 Trichomonas vaginalis Ag [Presence] in Genital specimen by Immunoassay TRICHOMONAS PREP/ANTIGEN Microbiology Routine Vaginal irritation Expected: 01/02/2022, Expires: 03/04/2022 [facility] Work Phone: Comment on above: Expected: 01/02/2022 , Expires: 03/04/2022 Start: 01-30-2021 PAP TESTING PAP TESTING Start: 01-30-2021 Screening for malign ant neoplasm of cervix Start: 05-24-2020 Influenza vaccination Flu vaccine (# 1) [facility] Work Phone: Start: 01-30-2019 Pneumococcal vaccination Pneum ococcal Vaccine (1 of 2 - PCV) Start: 01-30-2019 SHINGRIX VACCINE (1 of 2) SHINGRIX VACCINE (1 of 2) Start: 01-30-2018 Anxiety Screening Anxiety Screening Start: 2016 Meningococcal B Vacc ine: Consider Based On Risk (1 of 2 - Patient Seeks Protection) Meningococcal B Vaccine: Consider Based On Risk (1 of 2 - Patient Seeks Protection) Start: 2016 MENINGOCOCCAL B: Consider based on risk (1 of 2 - Patient Seeks Protection) MENINGOCOCCAL B: Consider based on risk (1 of 2 - Patient Seeks Protection) Start: 09-29-2014 HPV VACCINE (2 - 2-d ose series) HPV VACCINE (2 - 2-dose series) Start: 01-30-2014 PEDS TO ADULT TRANSI TION ANNUAL ASSESSMENT PEDS TO ADULT TRANSITION ANNUAL ASSESSMENT Start: 2012 Adult depression screening assessment DEPRESSION SCREENING Start: 2012 PEDS TO ADULT TRANSI TION INITIAL DISCUSSION PEDS TO ADULT TRANSITION INITIAL DISCUSSION Start: 01-30-2010 MENINGOCOCCAL B: Consider based on risk (1 of 2 - Risk Bexsero 2-dose series) MENINGOCOCCAL B: Consider based on risk (1 of 2 - Risk Bexsero 2-dose series) Start: 01-30-2006 PNEUMOCOCCAL (1 - PCV) PNEUMOCOCCAL (1 - PCV) Start: 01-30-2006 Pneumococcal vaccination Start: 01-30-2005 COVID-19 VACCINE (#1) COVID-19 VACCI NE (#1) Start: 01-30-2005 COVID-19 VACCINE (1) COVID-19 VACCIN E (1) Start: 2000 COVID-19 VACCINE (#1) COVID-19 VACCI NE (#1) Bacteria identified in Urine by Culture URINE CULTURE Microbiology Routine Burning with urination 02/21/2023 3:47 PM EDT [facility] Work Phone: Bacteria identified in Urine by Culture URINE CULTURE Microbiology Routine Dysuria 12/23/2023 6:20 PM EDT [facility] Work Phone: Bacteria identified in Urine by Culture BACTERIAL CULTURE, URINE Microbiology Routine Dysuria Ordered: 10/26/2024 [facility] Work Phone: Comment on above: Ordered: 10/26/2024 Bacteria identified in Urine by Culture BACTERIAL CULTURE, URINE Microbiology Routine Urinary frequency Ordered: 10/26/2024 [facility] Work Phone: Comment on above: Ordered: 10/26/2024 BACTERIAL VAGINOSIS AMPLIFICATION BACTERIAL VAGINOSIS AMPLIFICATION Lab Routine Screening for STD (sexually transmitted disease) Vaginal discharge 02/21/2023 3:46 PM EDT [facility] Work Phone: BACTERIAL VAGINOSIS NAAT BACTERI AL VAGINOSIS NAAT Lab Routine Dysuria Vaginal discharge Encounter for sexually transmitted disease counseling 12/23/2023 6:20 PM EDT [facility] Work Phone: BACTERIAL VAGINOSIS NAAT BACTERI AL VAGINOSIS NAAT Lab Routine Screening for STDs (sexually transmitted diseases) 10/26/2024 9:22 AM [facility] Basic metabolic 2000 panel Basic Metabolic Panel Lab Routine Daily until discontinued starting 12/06/2020, 1 completed [employer] Work Phone: Comment on above: Daily until disconti nued starting 12/06/2020, 1 completed RANCHO / TRICHOMONA S AMPLIFICATION RANCHO / TRICHOMONAS AMPLIFICATION Microbiology Routine Screening for STD (sexually transmitted disease) Vaginal discharge 02/21/2023 3:46 PM EDT [facility] Work Phone: RANCHO/TRICHOMONAS NAAT RANCHO /TRICHOMONAS NAAT Lab Routine Dysuria Vaginal discharge Encounter for sexually transmitted disease counseling 12/23/2023 6:20 PM [facility] Work Phone: RANCHO/TRICHOMONAS NAAT RANCHO /TRICHOMONAS NAAT Lab Routine Screening for STDs (sexually transmitted diseases) 10/26/2024 9:22 AM [facility] CBC Auto Differential CBC Auto D ifferential Lab Routine Daily until discontinued starting 12/06/2020, 1 completed [employer] Work Phone: Comment on above: Daily until disconti nued starting 12/06/2020, 1 completed Chlamydia trachomatis+Neisseria gonorrhoeae DNA [Presence] in Unspecified specimen by SOL with probe detection GC/CHLAMYDIA DNA DET Lab Routine Vaginal irritation 01/02/2022 1:17 PM [facility] Work Phone: Chlamydia trachomatis+Neisseria gonorrhoeae DNA [Presence] in Unspecified specimen by SOL with probe detection GC/CHLAMYDIA DNA DET Lab Routine Screening for STD (sexually transmitted disease) Vaginal discharge 02/21/2023 3:[address] [facility] Work Phone: Chlamydia trachomatis+Neisseria gonorrhoeae DNA [Presence] in Unspecified specimen by SOL with probe detection GONORRHEA/CHLAMYDIA NAAT Lab Routine Vaginal discharge 04/23/2023 3:[address] [facility] Work Phone: Chlamydia trachomatis+Neisseria gonorrhoeae DNA [Presence] in Unspecified specimen by SOL with probe detection GONORRHEA/CHLAMYDIA NAAT Lab Routine Dysuria Vaginal discharge Encounter for sexually transmitted disease counseling 12/23/2023 6:20 PM EDT [facility] Work Phone: Chlamydia trachomatis+Neisseria gonorrhoeae DNA [Presence] in Unspecified specimen by SOL with probe detection GONORRHEA/CHLAMYDIA NAAT Lab Routine Unprotected sex Ordered: 10/26/2024 Comment on above: Ordered: 10/26/2024 COVID & INFLUENZA A/ B & RSV NAAT, ROUTINE COVID & INFLUENZA A/B & RSV NAAT, ROUTINE Microbiology Routine Viral illness 07/16/2023 7:49 PM EDT [facility] Work Phone: IR CEREBRAL EMBO EXTRACRANIAL IR CEREBRAL EMBO EXTRACRANIAL Radiology Routine AVM (arteriovenous malformation) Ordered: 12/19/2022 [facility] Work Phone: Comment on above: Ordered: 12/19/2022 Oxygen therapy [Mini [facility] Data Set] Initiate Oxygen Therapy Protocol Respiratory Care Routine Daily until discontinued starting 12/06/2020 [facility] Work Phone: Comment on above: Daily until disconti nued starting 12/06/2020 PAP TEST PAP TEST Lab Rodrigue curiel Encounter for gynecological examination (general) (routine) with abnormal findings Screening for cervical cancer Encounter for screening for human papillomavirus (HPV) 10/26/2024 9:22 AM EST Patient Education [facility] Work Phone: Patient referral [facility] Work Phone: REFER FOR ADMIT INTERVIEW REFER FOR ADMIT INTERVIEW Procedures Routine AVM (arteriovenous malformation) Ordered: 12/19/2022 [facility] Work Phone: Comment on above: Ordered: 12/19/2022 ROUTINE FLU A/B + RSV ROUTINE FL U A/B + RSV Lab Routine Viral illness 07/16/2023 7:49 PM EDT [facility] Work Phone: SARS-CoV-2 (COVID-19 ) RNA [Presence] in Respiratory specimen by SOL with probe detection COVID NAAT, UPPER RESPIRATORY, ROUTINE Microbiology Routine Viral illness 07/16/2023 7:49 PM EDT [facility] Work Phone: Streptococcus pyogen es antigen assay Group A Streptococcus Rapid Screen [facility] Work Phone: Urine test [facility] Urine test visual color cmprsn meths HCG QUAL UR B/O Lab Routine AVM (arteriovenous malformation) Ordered: 12/19/2022 [facility] Work Phone: Comment on above: Or[facility]: 12/19/2022 [facility] Immunizations Immunization Date Immunization Notes Care Provider Fa cility 06-02-2019 influenza, injectabl e, quadrivalent, contains preservative Roberta Guthrie MD Work Phone: 06-02-2019 tetanus toxoid, redu mary diphtheria toxoid, and acellular pertussis vaccine, adsorbed Roberta Guthrie MD Work Phone: 06-02-2019 influenza virus vacc ine, unspecified formulation Carmen Ortega [facility] Work Phone: 03-29-2014 human papilloma viru s vaccine, quadrivalent Roberta Guthrie MD Work Phone: 03-29-2014 varicella virus vaccine Teresita Guthrie MD Work Phone: 05-28-2012 meningococcal polysaccharide (groups A, C, Y and W-135) diphtheria toxoid conjugate vaccine (MCV4P) Roberta Guthrie MD Work Phone: Work Phone: 05-28-2012 Meningococcal, MCV4, unspecified conjugate formulation(groups A, C, Y and W-135) Roberta Guthrie MD Work Phone: Work Phone: 05-28-2012 tetanus toxoid, redu mary diphtheria toxoid, and acellular pertussis vaccine, adsorbed Roberta Guthrie MD Work Phone: Work Phone: 10-19-2004 diphtheria, tetanus toxoids and acellular pertussis vaccine Roberta Guthrie MD Work Phone: Work Phone: 10-19-2004 measles, mumps and rubella virus vaccine Roberta Guthrie MD Work Phone: Work Phone: 10-19-2004 poliovirus vaccine, inactivated Roberta Guthrie MD Work Phone: Work Phone: 10-10-2002 pneumococcal conjuga te vaccine, 7 valent Roberta Guthrie MD Work Phone: Work Phone: 10-10-2002 pneumococcal Conjuga te, unspecified formulation Roberta Guthrie MD Work Phone: Work Phone: 11-20-2001 diphtheria, tetanus toxoids and acellular pertussis vaccine Roberta Guthrie MD Work Phone: Work Phone: 11-20-2001 haemophilus influenz ae type b vaccine, HbOC conjugate Roberta Guthrie MD Work Phone: Work Phone: 11-20-2001 haemophilus influenz ae type b vaccine, PRP-T conjugate Roberta Guthrie MD Work Phone: Work Phone: 11-20-2001 hepatitis B vaccine, pediatric or pediatric/adolescent dosage Roberta Guthrie MD Work Phone: Work Phone: 06-20-2001 measles, mumps and rubella virus vaccine Roberta Guthrie MD Work Phone: Work Phone: 06-20-2001 pneumococcal conjuga te vaccine, 7 valent Roberta Guthrie MD Work Phone: Work Phone: 06-20-2001 pneumococcal Conjuga te, unspecified formulation Roberta Guthrie MD Work Phone: Work Phone: 06-20-2001 varicella virus vaccine Teresita Guthrie MD Work Phone: Work Phone: 2000 diphtheria, tetanus toxoids and acellular pertussis vaccine Roberta Guthrie MD Work Phone: Work Phone: 2000 haemophilus influenz ae type b vaccine, HbOC conjugate Roberta Guthrie MD Work Phone: Work Phone: 2000 haemophilus influenz ae type b vaccine, PRP-T conjugate Roberta Guthrie MD Work Phone: Work Phone: 2000 hepatitis B vaccine, pediatric or pediatric/adolescent dosage Roberta Guthrie MD Work Phone: Work Phone: 2000 poliovirus vaccine, inactivated Roberta Guthrie MD Work Phone: Work Phone: 2000 diphtheria, tetanus toxoids and acellular pertussis vaccine Roberta Guthrie MD Work Phone: Work Phone: 2000 haemophilus influenz ae type b conjugate and Hepatitis B vaccine Roberta Guthrie MD Work Phone: Work Phone: 2000 haemophilus influenz ae type b vaccine, HbOC conjugate Roberta Guthrie MD Work Phone: Work Phone: 2000 haemophilus influenz ae type b vaccine, PRP-T conjugate Roberta Guthrie MD Work Phone: Work Phone: 2000 hepatitis B vaccine, pediatric or pediatric/adolescent dosage Roberta Guthrie MD Work Phone: Work Phone: 2000 poliovirus vaccine, inactivated Roberta Guthrie MD Work Phone: Work Phone: 2000 diphtheria, tetanus toxoids and acellular pertussis vaccine Roberta Guthrie MD Work Phone: Work Phone: 2000 haemophilus influenz ae type b conjugate and Hepatitis B vaccine Roberta Guthrie MD Work Phone: Work Phone: 2000 haemophilus influenz ae type b vaccine, HbOC conjugate Roberta Guthrie MD Work Phone: Work Phone: 2000 haemophilus influenz ae type b vaccine, PRP-T conjugate Roberta Guthrie MD Work Phone: Work Phone: 2000 hepatitis B vaccine, pediatric or pediatric/adolescent dosage Roberta Guthrie MD Work Phone: Work Phone: 2000 poliovirus vaccine, inactivated Roberta Guthrie MD Work Phone: Work Phone: 2000 hepatitis B vaccine, pediatric or pediatric/adolescent dosage Roberta Guthrie MD Work Phone: Work Phone: Payers Date Payer Category Payer Self-pay [id number] 2022 Medicaid [id number] 2021 [facility] [id number] 2019 Medicaid [facility] MEDIC A[facility] MEDICAID [id number] 2019-Present [phone] [address] [place] [address] Medicaid [id number] 2019 Medicaid [id number] 2016 Unknown [id number] 2000 Unknown [id number] 2000 Unknown [id number] 2000 Unknown [id number] 2000 Unknown [id number] 2000 Unknown [id number] 2000 Unknown [id number] Unknown [facility] PLAN [id number] Unknown [id number] Unknown [id number] Unknown [id number] Unknown [id number] Unknown [id number] Social History Date Type Detail Facility Tobacco smoking status WVIS Unknown if ever smoked [facility] Work Phone: Start: 2000 Sex Assigned At Not on file S [employer] Work Phone: Start: 02-12-2019 End: 04-09-2019 Tobacco smoking status NHIS Occasional tobacco smoker Work Phone: Start: 02-12-2019 End: 10-26-2024 Tobacco use and exposure Smokeless tobacco non-user Work Phone: Start: 01-02-2022 End: 10-26-2024 Alcohol intake Current non-drinker of alcohol (finding) Start: 04-09-2019 End: 10-18-2022 Tobacco Comment 5 cigarettes daily Start: 12-11-2020 End: 01-02-2022 Exposure to SARS-CoV-2 (event) Not sure Start: 09-16-2022 End: 07-28-2023 Tobacco smoking status NHIS Unknown if ever smoked [facility] Start: 01-11-[address] [facility] Start: 01-11-[address] [facility] Start: 01-18-[address] [facility] Start: 2000 Sex Assigned At Female W [facility] Start: 01-03-2023 End: 12-17-2024 Tobacco smoking status NHIS Smokes tobacco daily History of tobacco use Cigarette Smoker Start: 01-03-2023 End: 11-04-2024 Cigarettes smoked current (pack per day) - Reported 0.3 Start: 01-04-2023 History SDOH Financial 4 Start: 01-04-2023 History SDOH Food Worry 1 Start: 01-04-2023 History SDOH Transport Med 2 Start: 04-23-2023 End: 11-04-2024 Tobacco use panel How hard is it for you to pay for the very basics like food, housing, medical care, and heating Not very hard Adult Depression Screening Assessment 0 (I/We) worried whether (my/our) food would run out before (I/we) got money to buy more. Never true In the past 12 months, was there a time when you were not able to pay the mortgage or rent on time? No Start: 12-17-2024 Sex Female (finding) [facility] NEGATED: Highlighted row [facility] NEGATED: Highlighted row Not [facility] Goals Date Patient Goal Desired Activity /State Functional Status Date Assessment Result Facility 01-05-2023 Are you deaf, or do you have serious difficulty hearing No 01/05/2023 11:35 AM EDT Shazia Fletcher, PATIENCE No 01-05-2023 Are you blind, or do you have serious difficulty seeing, even when wearing glasses No 01/05/2023 11:35 AM EDShazia Salvador, PATIENCE No 01-05-2023 Do you have serious difficulty walking or climbing stairs No 01/05/2023 11:35 AM EDT Shazia Fletcher, PATIENCE No 01-05-2023 Do you have difficul ty dressing or bathing No 01/05/2023 11:35 AM EDT Shazia Fletcher, PATIENCE No 01-05-2023 Because of a physica l, mental, or emotional condition, do you have difficulty doing errands alone such as visiting a physician's office or shopping No 01/05/2023 11:35 AM EDShazia Salvador, PATIENCE No Mental Status Date Assessment Result Facility 12-17-2024 Cognitive function Voice/Name [facility] Work Phone: 12-17-2024 Cognitive function Patient Orien tation Person;Place;Time [facility] Work Phone: 06-12-2023 Cognitive function Voice/Name [facility] Work Phone: 01-05-2023 Because of a physica l, mental, or emotional condition, do you have serious difficulty concentrating, remembering, or making decisions No 01/05/2023 11:35 AM EDT Shazia Fletcher, PATIENCE No 09-16-2022 Cognitive function Level Of Cons ciousness Awake;Alert;Appropriate;Fol lows Commands [facility] Work Phone: Clinical Notes 09-22-2020 to 02-23-2025 Note Date & Type Note Facility 02-23-2025 Evaluation note Diagnosis Onset Date Resolution Yeast infection acute February 23, 2025 6:13am [facility] Work Phone: [phone] Telephone encounter Note* Telephone Encounter - Nella John MD - 12/23/2024 4:13 PM EDT Please notify patient that tissue is benign from D&C. 04-02-2025 Miscellaneous Notes* Telephone Encounter - Nella John MD - 12/23/2024 4:13 PM EDT Please notify patient that tissue is benign from D&C. documented in this encounter03-27-2025 Discharge summary [facility] Medical Records Department [address] [place] [address] Instructions for Home/Discharge Instructions 12/17/24 1019 MR#: [id number] Acct: [id number] Name: EB HUI EILEEN Rep #:[id number] : 2000 24 From: Nella Hood MD [...] if you need an appointment please call [phone] Test Results: Test results from this visit will be discussed in further detail at your follow- up appointment, if applicable. Discharge Plan Admission Attending Provider: Nella Ward Primary Care Provider: Petty Vasquez Instructions Print Language: Albanian Discharge Orders/Prescriptions Prescriptions: No Action alprazolam 0.5 mg tablet 0.5 mg PO PRN Other Ambulatory Orders: ,Urine (Routine) Timeframe: 20241217 Facility: [facility] - Location: Laboratory Ordered By: Dr. Jamey Lilly Referrals / Follow Up: Petty Vasquez NP-C [Primary Care Provider] - Disposition Disposition (needs filled in before D/C Order can be placed): Home, Self Care 12/17/24 1019Nella Ward MD CC: CORE BAKER-C NP. Petty Vasquez ~ Signed [facility]03-27-2025 History and physical note Author Nella Escalera [facility] Note Date/Time December 17, 2024 8:3 9am [facility] Medical Records Department [address] [place] [address] H&P Exam - FIELD OPERATIONS SUPERVISOR 12/16/24 1716 MR#: [id number] Acct: [id number] Name: EB HUI EILEEN Rep #:[id number] : 2000 24 From: Nella Hood MD PCP: JEIMY Abrams Status: [facility] Location: [place] [address] History and Physical Date of Admission: 12/17/24 [...] Ward MD> Cosigner Signature (if applicable): CC: CORE BAKERNatalieC BHUPENDRA. Petty Vasquez; Dr Nella Ward MD~ Signed ADDENDUM by Dr Nella Ward MD on 12/17/24 at 0839 Addendum I have examined the patient and the H&P has been reviewed. There are no clinicalchanges since date of exam. 12/17/24 0839<Electronically signed by Nella Ward MD> Cosigner Signature (if applicable): cc: CORE BAKERMaik Vasquez; Dr Nella Ward MD ~* Signed [facility] Work Phone: 1(965) 406-920203-27-2025 Consult note [facility] Medical Records Department [address] [place] [address] Anesthesia Postop Eval I 12/17/24 1022 MR#: [id number] Acct: [id number] Name: EB HUI Rep #:[id number] : 2000 24 From: Eunice Pereira CRNA PCP: JEIMY Abarms Status: REG SDC Y Race: C Location: [place] [address] Anesthesia: Postop Eval I Current Vital Signs [...] CRNA Cosigner Signature: Date CC: ~ Signed [facility]03-27-2025 Procedure note [facility] Medical Records Department [address] [place] [address] Operative Report 12/17/24 1019 MR#: [id number] Acct: [id number] Name: EB HUI Rep #:[id number] : 2000 24 From: Nella Hood MD PCP: JEIMY Abrams Status: [facility] Location: [place] [address]-1 Operative Report (Standard) Operative Information Date of Procedure: 12/17/24 Pre-Operative Diagnosis: AUB, Endometrial Polyp Post-Operative Diagnosis: same Surgery/Procedure Performed: Hysteroscopy, d&C banquet chef: Yes Soldering Machine Operator Helper: Jono Matamoros MS3 Tasks completed by housekeeper/laundry assistant: Retracting Additional preschool assistant director?: No Type of Anesthesia: MAC RN Documented [...] anesthesia. She was then placed in the [facility] where she was preppedand draped in the [...] 12/17/24 1021 Cosigner Signature (if applicable): CC: CORE BAKER-C NP. Petty Vasquez; Dr Nella Ward MD~ Signed [facility]03-27-2025 History and physical note [facility] Medical Records Department [address] [place] [address] H&P Exam - FIELD OPERATIONS SUPERVISOR 12/16/24 1716 MR#: [id number] Acct: [id number] Name: EB HUI Rep #:[id number] : 2000 24 From: Nella Hood MD PCP: BHUPENDRA. JEIMY Pinto Status: [facility] [place] Location: [place] [address] History and Physical Date of Admission: 12/17/24 [...] 12/16/24 1716 Cosigner Signature (if applicable): CC: CORE BAKERMaik Vasquez; Dr Nella Ward MD~ Signed ADDENDUM by Dr Nella Ward MD on 12/17/24 at 0839 Addendum I have examined the patient and the H&P has been reviewed. There are no clinicalchanges since date of exam. 12/17/24 0839 Cosigner Signature (if applicable): cc: CORE BAKERMaik Vasquez; Dr Nella Ward MD ~* Signed [facility]03-26-2025 History and physical note* Nella John MD [...] history, medications and allergies Nella Hood MD 03-26-2025 History and physical note* Nella John MD [...] allergies Nella Hood MD documented in this encounter03-26-2025 NoteHNO ID: [id number] Author: NELLA JOHN MD Service: ? Author Type: Physician Type: Progress Notes Filed: 12/16/2024 17:17 Note Text:[facility]03-26-2025 History of Present illness Narrative* Nella John MD - 12/16/2024 1:26 PM EDT documented in this encounter02-26-2025 Telephone encounter Note * Telephone Encounter - Angelina Gloria RN - 11/18/2024 4:16 PM EST Notified civil engineering assistant. Angelina Gloria RN 02-26-2025 Miscellaneous Notes* Telephone Encounter - Angelina Gloria RN - 11/18/2024 4:16 PM EST Notified civil engineering assistant. Angelina Gloria, PATIENCE * Telephone Encounter - Petty Rubalcava APRN.CNM - 11/18/2024 12:54 PM EST No, I can I have a sheet for a provider that is available in about 6-8 wks. Thanks, Petty Rubalcava APRN.CNM documented in this encounter02-26-2025 Telephone encounter Note * Telephone Encounter - Petty Rubalcava APRN.CNM - 11/18/2024 12:54 PM EST No, I can I have a sheet for a provider that is available in about 6-8 wks. Petty Ladd APRN.CNM 02-12-2025 Instructions* Patient Instructions* Petty Rubalcava APRN.CNM - [...] for scheduling the procedure documented in this encounter02-12-2025 NoteHNO ID: [id number] Author: PETTY RUBALCAVA APRN.CNM Service: ? Author Type: Shot Fireman Type: Progress Notes Filed: 11/17/2024 14:43 Note Text: DISTANCE HEALTH VISIT This Team Access Model visit is a virtual encounter. It required patient-provider interaction for the medical decision making as documented below. I have communicated my name and active licensure. The patient's identity and physical location were verified at the time of this visit. Either the patient or their legal outside industrial sales representative has been informed of the risks [...] Abs Lymph 1.00 - 4.00 k/uL 1.87 Bullock% % 8.3 Abs Bullock <0.87 k/uL 0.44 Eosin% % 0.8 Abs [...] Clear Case Report Gynecologic Cytology Report Case: [id number] ? Specimen adequacy: Satisfactory for interpretation. Cytology [...] from every slide are reviewed by a riding instructor. Performing Lab Technical component, riding instructor screening performed at [facility], [address] [place] [address] CLIA# [id number]? Rancho species group RNA Not detected Not [...] Arcuate uterus. ASSESSMENT/PLAN: 1 (more content not included)...[facility]02-12-2025 History of Present illness Narrative* Petty Rubalcava APRN.[facility] - 11/04/2024 3:05 PM EST DISTANCE HEALTH VISIT This Team Access Model visit is a virtual encounter. It required patient- provider interaction for the medical decision making as documented below. I have communicated my name and active licensure. The patient's identity and physical location wereverified at the time of this visit. Either the patient or their legal outside industrial sales representative has been informed of the risks [...] Abs Lymph 1.00 - 4.00 k/uL 1.87 Bullock% % 8.3 Abs Bullock <0.87 k/uL 0.44 Eosin% % 0.8 Abs [...] Clear Case Report Gynecologic Cytology Report Case: [id number] Specimen adequacy: Satisfactory for interpretation. Cytology Interpretation [...] from every slide are reviewed by a riding instructor. Performing Lab Technical component, riding instructor screening performed at [facility], [address] [place] [address] CLIA# [id number] Rancho species group RNA Not detected Not [...] with more than 50% of the total evrf-kd-kyob time of the visit in counseling / coordination of care. documented in this encounter02-10-2025 Telephone encounter Note * Telephone Encounter - Angelina Gloria RN - 11/02/2024 10:02 AM EST Patient notified. Moved up her VV to discuss options further. Angelina Gloria RN 02-10-2025 Miscellaneous Notes* Telephone Encounter - Angelina Gloria [...] 11/02. Jolanta Day RN documented in this encounter02-10-2025 Telephone encounter Note * Telephone Encounter - [...] visit in any slot. Petty Rubalcava APRN.CNM 02-07-2025 Telephone encounter Note* Telephone Encounter - Jolanta Day RN - 10/30/2024 2:25 PM EST Patient calling because she saw pelvic u/s results on mychart and is concerned. Her f/u appt is notuntil 11/17. Aware SAM back in the office 11/02. Jolanta Day RN 02-06-2025 NoteHNO ID: [id number] Author: JEANIE REYNOLDS MD Service: ? Author Type: Physician Type: Progress Notes Filed: 10/29/2024 21:52 Note Text: The patient presents for requested ultrasound. Full report available in the Imaging tab in [facility]. Jeanie Reynolds, [facility]02-06-2025 History of Present illness Narrative* Jeanie Reynolds MD - 10/29/2024 9:31 PM EST The patient presents for requested ultrasound. Full report available in the Imaging tab in [facility]. Jeanie Reynolds MD documented in this encounter02-04-2025 Telephone encounter Note * Telephone Encounter - Yordan Smalls APRN.CNP - 10/27/2024 8:38 AM EST I called Patient let her know positive chlamydia. Doxycycline was called in. Let her know about negative gonorrhea. 02-04-2025 Miscellaneous Notes* Telephone Encounter - Yordan Smalls APRN.CNP - 10/27/2024 8:38 AM EST I called Patient let her know positive chlamydia. Doxycycline was called in. Let her know about negative gonorrhea. documented in this encounter02-03-2025 NoteHNO ID: [id number] Author: YORDAN SMALLS APRN.CNP Service: ? Author [...] NAAT Self swab Other swabs ordered with ob/gyn nurse If anything is positive please treat.. Potential red flag symptoms discussed with the patient. Reviewed appropriate action plan to take if red flag symptoms occur. Patient agreeable to treatment plan. Yordan Smalls APRN.[facility]02-03-2025 History of Present illness Narrative* Yordan Smalls [...] NAAT Self swab Other swabs ordered with ob/gyn nurse If anything is positive please treat.. Potential red flag symptoms discussed with the patient. Reviewed appropriate action plan to take if red flag symptoms occur. Patient agreeable to treatment plan. Yordan Smalls APRN.ELLIE documented in this encounter02-03-2025 Instructions* Patient Instructions* Petty Rubalcava APRN.[facility] - 10/26/2024 9:12 AM EST What is [...] before it is found. documented in this encounter02-03-2025 NoteHNO ID: [id number] Author: PETTY RUBALCAVA APRN.CNM Service: ? Author Type: Shot Fireman Type: Progress Notes Filed: 10/26/2024 12:38 Note [...] L1 SAB0 IAB0 Ectopic0 Multiple0 Live Births1 Customer Loyalty Representative History LMP: 10/08/2024, Having periods Age at Menarche: 12 Age at First : Age at Menopause: Customer Loyalty Representative History Comments: Sexual Activity: Yes; Male Contraception: [...] discussed with the Patient or Patient's Authorized Cost Engineer. As applicable, any other physician, advance practice provider, medical student, or other health professional student that will be observing or involved in the sensitive examination for educational or training purposes was discussed with the Patient or Authorized Cost Engineer. The Patient or Authorized Cost Engineer has agreed to proceed with the sensitive [...] external genitalia normal, normal Bartholin's glands, urethra, Crucible's glands, no vulvar lesions, no cervical lesions, [...] PAP TEST 3. Encounter (more content not included)...[facility]02-03-2025 History of Present illness Narrative* Petty Rubalcava [...] L1 SAB0 IAB0 Ectopic0 Multiple0 Live Births1 Customer Loyalty Representative History LMP: 10/08/2024, Having periods Age at Menarche: 12 Age at First : Age at Menopause: Customer Loyalty Representative History Comments: Sexual Activity: Yes; Male Contraception: [...] discussed with the Patient or Patient's Authorized Cost Engineer. As applicable, any other physician, advance practice provider, medical student, or other health professional student that will be observing or involved in the sensitive examination for educational or training purposes was discussed with the Patient or Authorized Cost Engineer. The Patient or Authorized Cost Engineer has agreed to proceed with the sensitive [...] external genitalia normal, normal Bartholin's glands, urethra, Crucible's glands, no vulvar lesions, no cervical lesions, [...] with more than 50% of the total manj-rk-gnmy time of the visit in counseling / coordination of care. documented in this encounter11-15-2024 NoteHNO ID: [id number] Author: LYNN SMALLS MD Service: ? Author [...] L1 SAB0 IAB0 Ectopic0 Multiple0 Live Births1 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 As applicable, any other physician, advance practice provider, medical student, or other health professional student that will be observing or involved in the sensitive examination for educational or training purposes was discussed with the Patient or Authorized Cost Engineer. The Patient or Authorized Cost Engineer has agreed to proceed with the sensitive [...] Making Level: 3 - Low Lynn Smalls [facility]11-15-2024 History of Present illness Narrative* Lynn Smalls [...] L1 SAB0 IAB0 Ectopic0 Multiple0 Live Births1 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 As applicable, any other physician, advance practice provider, medical student, or other health professional student that will be observing or involved in the sensitive examination for educational or training purposes was discussed with the Patient or Authorized Cost Engineer. The Patient or Authorized Cost Engineer has agreed to proceed with the sensitive [...] Low Lynn Smalls MD documented in this encounter04-02-2024 Miscellaneous Notes* Telephone Encounter - Willow Jacinto APRN.CNP - 12/24/2023 8:58 AM EDT Patient advised of test results-[facility]. She will take as directed. Willow Jacinto APRN.CNP documented in this encounter04-01-2024 History of Present illness Narrative* Petty Uriostegui [...] female hygiene and importance of establishing with FIELD OPERATIONS SUPERVISOR for recurrent bacterial vaginosis - Start diflucan and rima Knowles TEACHING PROVIDER (Physician/PA/PLASTIC BATTERY ASSEMBLER) NOTE OF PERSONAL INVOLVEMENT IN CARE: I have personally seen and examined the patient and performed the medical decision-making components. I have reviewed the Advanced Practice Registered Nurse (PLASTIC BATTERY ASSEMBLER) Student's documentation and verified the findings in the note as written. Any additions or changes are noted in bold/italics. Signature: Petty Uriostegui Date: 12/23/2023 Time: 7:22 PM documented in this encounter02-19-2024 Telephone encounter Note * Telephone Encounter - Malathi Faith RN - 11/11/2023 11:39 AM EST Message sent to [employer] to schedule for apt with Dr. Mcdaniels in November. Malathi Faith RN 02-19-2024 Miscellaneous Notes* Telephone Encounter - Malathi Faith RN - 11/11/2023 11:39 AM EST Message sent to [email or web address] to schedule for apt with Dr. Mcdaniels [...] Hui, 2000). Yes Number to return call [phone] Reason for Call: Patient is calling to schedule follow up with Dr. Mcdaniels. Patient states was nervous about completing some kind of injection and kept putting off follow up regarding a tumor. Please review chart and have front desk manager call to schedule follow up. Thank you calling [facility]. You will receive a return call within 48hours ( or 2 business days if close to the weekend). If you feel that this is an urgent issue and needs immediate attention, it is recommended that you contact your primary care provider office or proceed to your nearest Urgent Care Center of Emergency Room ED for evaluation/treatment. documented in this encounter02-19-2024 Telephone encounter Note * Telephone Encounter - Petty Mccartney - 11/11/2023 9:18 AM EST CV PHONE Name of caller : Eb Relationship to patient : Self If not self Will need patient permission to release results or disclose health information with called documented in fyi. Patient identified by Name and Date of . ( [place] Hui, 2000). Yes Number to return call [phone] Reason for Call: Patient is calling to schedule follow up with Dr. Mcdaniels. Patient states was nervous about completing some kind of injection and kept putting off follow up regarding a tumor. Please review chart and have front desk manager call to schedule follow up. Thank you calling [facility]. You will receive a return call within 48hours ( or 2 business days if close to the weekend). If you feel that this is an urgent issue and needs immediate attention, it is recommended that you contact your primary care provider office or proceed to your nearest Urgent Care Center [facility] Emergency Room ED for evaluation/treatment. 02-11-2024 History of Present illness Narrative* Ricardo Campuzano APRN.TOOL REPAIRER BENCH - 11/03/2023 1:46 PM EST Subjective HPI [...] TABLET Ricardo Campuzano APRN.ELLIE documented in this encounter11-29-2023 History of Present illness Narrative* Leif Sahu [...] plan ofcare. This note was generated using [employer] software. It may contain errors in wording, punctuation,or spelling. Leif Sahu APRN.TOOL REPAIRER BENCH documented in this encounter11-05-2023 Discharge summary Author Alden Miner [facility] July 28, 2023 10:20pm Note Date/Time July 28, 2023 1 0:06pm [facility] Medical Records Department [address] [place] [address] Emergency Department Summary 07/28/23 MR#: [id number] Acct: [id number] Name: EB HUI Rep #:[id number] : 2000 23 From: Alden Chun PCP: [...] diagnosis: Dental abscess, ANUG, Ludewig's angina, RPA, MEDICAL TECHNOLOGIST HEMATOLOGY, dental caries, gingivitis Factors affecting care: None [...] problems, contact your Primary Care Provider. Call [facility] ([phone]) or report to the closest Emergency Room. Call 911 if necessary. 07/28/238 <Electronically signed by Alden Miner DO> Cosigner Signature (if applicable): CC: JEIMY Vasquez ~ Signed [facility] Work Phone: [phone]) 846-865510-24-2023 History of Present illness Narrative* Tiffanie Meier [...] 16, 2023 7:37 PM documented in this encounter10-24-2023 History of Present illness Narrative* Liza rFiedman PA-C - 07/16/2023 7:36 PM EDT This note was created using [employer]. Subjective Eb Hui is a 23 year [...] FRONTAL/LAT Liza Friedman PA-C documented in this encounter10-19-2023 Miscellaneous Notes* Telephone Encounter - Fe Mascorro [...] notify patient thank you documented in this encounter08-31-2023 Miscellaneous Notes* Telephone Encounter - Lore Duffy [...] flagyl. Willow Jacinto APRN.ELLIE documented in this encounter08-04-2023 Telephone encounter Note * Telephone Encounter - Bib Petty - 04/26/2023 8:52 AM EDT CV PHONE Name of caller : Fidelia Relationship to patient : Mother If not self Will need patient permission to release results or disclose health information with called documented in fyi. Patient identified by Name and Date of . ( Eb Hui, 2000). Yes Number to return call [phone] Reason for Call: Patient and patient mother Fidelia is calling to reschedule missed appointment. I rescheduled virtual appointment 05/06 at 9:20 am per Malathi. Thank you calling [facility]. You will receive a return call within 48hours ( or 2 business days if close to the weekend). If you feel that this is an urgent issue and needs immediate attention, it is recommended that you contact your primary care provider office or proceed to your nearest Ur[facility] Emergency Room ED for evaluation/treatment. 08-04-2023 Miscellaneous Notes* Telephone Encounter - Petty Mccartney - 04/26/2023 8:52 AM EDT CV PHONE Name of caller : Fidelia Relationship to patient : Mother If not self Will need patient permission to release results or disclose health information with called documented in fyi. Patient identified by Name and Date of . ( Eb Hui, 2000). Yes Number to return call [phone] Reason for Call: Patient and patient mother Fidelia is calling to reschedule missed appointment. I rescheduled virtual appointment 05/06 at 9:20 am per Malathi. Thank you calling [facility]. You will receive a return call within 48hours ( or 2 business days if close to the weekend). If you feel that this is an urgent issue and needs immediate attention, it is recommended that you contact your primary care provider office or proceed to your nearest [facility] ED for evaluation/treatment. documented in this encounter08-02-2023 Miscellaneous Notes* Telephone Encounter - Gillian Flores - 04/24/2023 8:38 AM EDT Patient given results and verbalized understanding of instructions given. Gillian Flores * Telephone Encounter - Elizabeth Gomez PA - 04/24/2023 7:11 AM EDT Please let patient know she tested positive for bacterial vaginosis. Flagyl sent to her pharmacy-[facility] in [place]. Do not drink alcohol with taking this medication. Her GC/chlamydia and Candidawere all negative. documented in this encounter08-01-2023 History of Present illness Narrative* Elizabeth Gomez PA - 04/23/2023 2:57 PM EDT This note was created using [employer]. Subjective Eb Hui is a 23 year [...] ER evaluation. SARINA Villalobos documented in this encounter06-11-2023 Discharge summary Author Rodo Lund [facility] March 03, 2023 11:16am Note Date/Time March 03, 2023 9:46 am [facility] Medical Records Department [address] [place] [address] Emergency Department Summary 03/03/23 MR#: [id number] Acct: [id number] Name: EB HUI EILEEN Rep #:[id number] : 2000 23 From: Rodo Lund MD [...] wrist or hand. 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 [...] motor deficits and no sensory deficits noted [place] Coma Scale: document GCS findings Spontaneous Obeys [...] 10:26 EDT Reading Location ID and State: Virtual Web / [employer] , Service support , Cervical Spine CT 03/03/23 09:35 IMPRESSION: No acute fracture or subluxation. Reversal of the normal lordotic curvature possibly from muscular spasm. Electronically Signed: Richie Gilmore MD at 10:40 EDT Reading Location ID and State: Virtual Web / [employer] , Service support , Soft Tissue Neck CT 03/03/23 09:35 IMPRESSION: 1. Soft tissue mass in the midline of the posterior aspect of the oropharynx posterior to the base of the tongue and anterior to the epiglottis. Similar findings are seen in the prior study. Clinical correlation is recommended. 2. 4 cm soft tissue mass of the right warehouse and receiving supervisor space with calcifications with effacement of the right parapharyngeal space and mass effect on the right side of the oropharynx. Similar findings are seen in the prior study. Clinical correlation is recommended. Electronically Signed: Richie Gilmore MD at 10:38 EDT Reading Location ID and State: Virtual Web / [employer] , Service support , Chest X-Ray [...] Referrals: George Erickson MD [Med Staff - Paper And Pulp Mill Worker] - As Needed Care Physician,No Primary [Primary [...] your Primary Care Provider. Call [facility] ([phone]) or report to the closest Emergency Room. Call 911 if necessary. 03/03/23 1116 <Electronically signed by Rodo Lund MD> Cosigner Signature (if applicable): CC: No Primary Care Physician ~ Signed [facility] Work Phone: 1(274) 245-440306-02-2023 Miscellaneous Notes* Telephone Encounter - Arlin Ta LPN - 02/22/2023 2:54 PM EDT Pt calls states is at [facility] and her meds are not there [facility]. This nurse looks and they [facility] Pt states will call them and have them, sent to [facility]. documented in this encounter06-02-2023 Miscellaneous Notes* Telephone Encounter - Britney Butterfield [...] treatment. Willow Jacinto APRN.ELLIE documented in this encounter06-01-2023 History of Present illness Narrative* SARINA Villalobos - 02/21/2023 3:10 PM EDT This note was created using [employer] Plus. Subjective Eb Hui is a 23 year [...] ER evaluation. SARINA Villalobos documented in this encounter05-12-2023 Miscellaneous Notes* Telephone Encounter - Brittani Marquez [...] appointment after consult is placed, hopefully in [place]. Patient is encouraged to proceed to ER [...] care was not useful documented in this encounter04-13-2023 Instructions* Patient Instructions* Junior Bella PA-C - 01/03/2023 10:55 AM EDT PATIENT PREOPERATIVE INSTRUCTIONS Aliya Mcdaniels MD has scheduled you for your procedure at this surgery center: [facility] Scheduling Office: [phone] --[address] [place] [id number]. Please read below carefully for your personalized instructions. Arrival Time for Surgery: - To obtain your arrival time for surgery, call your physician's office the day before your surgery. - If your surgery is scheduled for Saturday, call the Saturday before. Your surgeon s process worker will tell you what time to call the office. - If you have not reached the departmental process worker by 5 P.M., call [phone] after 5 P.M. the day before your [...] Advance Directive, please fax a copy to [phone] or email to for it to be [...] day. Junior Bella PA-C documented in this encounter04-13-2023 History and physical note * Junior Bella [...] manage symptoms. Procedure scheduled on 01/04/2023 at [facility]. REVIEW OF SYSTEMS: General: No weight loss, malaise or fevers. Neurological: No history of TIA's, stroke, LEGAL DOCUMENT SPECIALIST tumor, impaired sensorium, hemiplegia, paraplegia orquadraplegia. No [...] frequent urination, nephrolithiasis, renal failure and urgency. 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 [...] or any previous visit (from the past 03110 hour(s)). Assessment Patient has the following medical conditions which may affect cynthia-operative course: Mild major depression (HCC) Assessment: no meds, denies concerning symptoms Smoker Assessment: reports smoking 1 ppd x 4 years Frequent UTI Assessment: denies current symptoms, last infection about one month ago History of scoliosis Assessment: was followed as child/teenager at [facility]. Reports chronic pain. Farrell Activity Status Index: [...] large neck Non-male patient STOP-Bang Score: 1 [id number] Score: [id number] Score: 0 ASA Class: 2 ANESTHESIA FINDINGS: [...] 12:33 PM PAGER/CONTACT #: documented in this encounter03-08-2023 History of Present illness Narrative* Ricco Mullins MD - 11/28/2022 1:36 PM EST HEAD AND NECK SURGERY TELEPHONE VISIT Eb Hui has consented to this telephone encounter (audio-only). PERSONS PRESENT: patient CHIEF COMPLAINT/REASON: right pterygoid lesion HISTORY OF PRESENT ILLNESS: Eb Hui is a 22 year old [...] I had extensive conversations with our pediatric bead forming machine set up operator, as well as interventional radiologist. There is [...] of SERVICE: 1:36 PM documented in this encounter03-08-2023 Nurse Note* Soledad Mccarthy Ma - 11/28/2022 10:03 AM EST Tobacco Use: Yes Was smoking cessation packet given? Patient Declined Was a referral initiated?Patient declined. Spoke to Eb Hui, confirmed patient is registered on [employer] and is prepared for their appointment. Confirmed the patient has updated medications, allergies, and questionnaires via [employer]. Informed patient if there is an issue with the connection, provider will send the patient a secure link. If provider is running late, patient should remain connected to the visit. Patient verbalized understanding. documented in this encounter02-27-2023 Miscellaneous Notes* Telephone Encounter - Dawna Magallon RN - 11/19/2022 4:01 PM EST Attempted to call patient back but unable to leave message due to mailbox being full. documented in this encounter02-16-2023 Miscellaneous Notes* Telephone Encounter - Angelina Gloria RN - 11/08/2022 11:45 AM EST Patient notified. Will have HCG quant drawn. Patient's IUD was removed in [place] approximately 5 months ago. Angelina Gloria RN [...] level. Angelina Gloria RN documented in this encounter05-27-2022 Miscellaneous Notes* Telephone Encounter - Shira Travis [...] a Rx for flagyl. documented in this encounter04-18-2022 Miscellaneous Notes* Telephone Encounter - Angelina Gloria RN - 01/08/2022 10:32 AM EDT Received message from pharmacy regarding SYNALAR. Pharmacy comment: we are unable to get this medication from our suppliers. would you like to change it? documented in this encounter04-13-2022 Miscellaneous Notes* Telephone Encounter - Angelina Gloria RN - 01/03/2022 12:42 PM EDT Patient notified. Voiced understanding. Will call back to schedule her 3 month follow-up. Health Dept form faxed. Angelina Gloria RN * Telephone Encounter - Jolanta Day RN - 01/03/2022 10:00 AM EDT RR stopped in office now and filed medication. Attempted to call patient, but mailbox is full. Artward[employer]hart message sent to call office. Health department [...] absence. Jolanta Day RN documented in this encounter04-12-2022 History of Present illness Narrative* Roberta Guthrie [...] apparent distress PELVIC: normal Bartholin's glands, urethra, Crucible's glands, no vulvar lesions, no cervical lesions,good vaginal support, physiologic discharge present, normal appearing perineal body and perianal region, erythema on vulva, lichenification of skin, no hyper or hypopigmentation, no ulcers, no lesions, no induration, no discrete lesions BIMANUAL: uterus normal size, shape and consistency, no adnexal masses and non-tender. ASSESSMENT/PLAN: contact dermatitis of vulva- d/w her ob/gyn nurse skin hygeine. Steriod taper, avoid irritants. STI [...] 01/02/22. Roberta Guthrie MD documented in this encounter04-20-2021 History of Present illness Narrative* Sanjana Panda [...] 10, 2021 2:41 PM documented in this encounter12-31-2020 History of Past illness Narrative* Problem Noted Date Resolved Date Herpes 09/22/2020 12/19/2020 Overview: No known outbreak . IgM and IgG positive. 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.TOOL REPAIRER BENCH Severe preeclampsia, third trimester 07/08/2019 08/21/2019 Overview: [...] of this encounter (statuses as of 01/02/2022) 12-31-2020 History of Past illness Narrative* Problem Noted Date Resolved Date Herpes 09/22/2020 12/19/2020 Overview: No known outbreak . IgM and IgG positive. 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.TOOL REPAIRER BENCH Severe preeclampsia, third trimester 07/08/2019 08/21/2019 Overview: [...] of this encounter (statuses as of 01/03/2022) 12-31-2020 History of Past illness Narrative* Problem Noted Date Resolved Date Herpes 09/22/2020 12/19/2020 Overview: No known outbreak . IgM and IgG positive. 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.TOOL REPAIRER BENCH Severe preeclampsia, third trimester 07/08/2019 08/21/2019 Overview: [...] of this encounter (statuses as of 01/10/2022) 12-31-2020 History of Past illness Narrative* Problem Noted Date Resolved Date Herpes 09/22/2020 12/19/2020 Overview: No known outbreak . IgM and IgG positive. 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.TOOL REPAIRER BENCH Severe preeclampsia, third trimester 07/08/2019 08/21/2019 Overview: - Features being RUQ pain - BPs mild to severe on admission - CBC/CMP wnl on admission - Magnesium started at [facility], currently running 2g/hr - Continue to monitor [...] of this encounter (statuses as of 01/10/2022) 12-31-2020 History of Past illness Narrative* Problem Noted Date Resolved Date Herpes 09/22/2020 12/19/2020 Overview: No known outbreak . IgM and IgG positive. Lona Waters, RAMÓN.TOOL REPAIRER BENCH Severe preeclampsia, third trimester 07/08/2019 08/21/2019 Overview: [...] of this encounter (statuses as of 02/16/2022) 12-31-2020 History of Past illness Narrative* Problem Noted Date Resolved Date Herpes 09/22/2020 12/19/2020 Overview: No known outbreak . IgM and IgG positive. 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.TOOL REPAIRER BENCH Severe preeclampsia, third trimester 07/08/2019 08/21/2019 Overview: [...] of this encounter (statuses as of 11/08/2022) 12-31-2020 History of Past illness Narrative* Problem Noted Date Resolved Date Herpes 09/22/2020 12/19/2020 Overview: No known outbreak . IgM and IgG positive. 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.TOOL REPAIRER BENCH Severe preeclampsia, third trimester 07/08/2019 08/21/2019 Overview: - Features being RUQ pain - BPs mild to severe on admission - CBC/CMP wnl on admission - Magnesium started at [facility], currently running 2g/hr - Continue to monitor [...] of this encounter (statuses as of 11/28/2022) 12-31-2020 History of Past illness Narrative* Problem Noted Date Resolved Date Herpes 09/22/2020 12/19/2020 Overview: No known outbreak . IgM and IgG positive. 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.TOOL REPAIRER BENCH Severe preeclampsia, third trimester 07/08/2019 08/21/2019 Overview: [...] 7 days for BV treatment. Petty Rubalcava APRN.[facility] January 27, 2019 Treat next appointment, treated [...] of this encounter (statuses as of 12/06/2022) 12-31-2020 History of Past illness Narrative* Problem Noted Date Resolved Date Herpes 09/22/2020 12/19/2020 Overview: No known outbreak . IgM and IgG positive. Lona Waters, RAMÓN.TOOL REPAIRER BENCH Severe preeclampsia, third trimester 07/08/2019 08/21/2019 Overview: [...] of this encounter (statuses as of 12/19/2022) 12-31-2020 History of Past illness Narrative* Problem Noted Date Resolved Date Herpes 09/22/2020 12/19/2020 Overview: No known outbreak . IgM and IgG positive. 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.TOOL REPAIRER BENCH Severe preeclampsia, third trimester 07/08/2019 08/21/2019 Overview: - Features being RUQ pain - BPs mild to severe on admission - CBC/CMP wnl on admission - Magnesium started at [facility], currently running 2g/hr - Continue to monitor [...] of this encounter (statuses as of 01/04/2023) 12-31-2020 History of Past illness Narrative* Problem Noted Date Resolved Date Herpes 09/22/2020 12/19/2020 Overview: No known outbreak . IgM and IgG positive. Lona Waters, PLASTIC BATTERY ASSEMBLER.TOOL REPAIRER BENCH Severe preeclampsia, third trimester 07/08/2019 08/21/2019 Overview: - Features being RUQ pain - BPs mild to severe on admission - CBC/CMP wnl on admission - Magnesium started at [facility], currently running 2g/hr - Continue to monitor [...] of this encounter (statuses as of 02/01/2023) 12-31-2020 History of Past illness Narrative* Problem Noted Date Resolved Date Herpes 09/22/2020 12/19/2020 Overview: No known outbreak . IgM and IgG positive. 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.TOOL REPAIRER BENCH Severe preeclampsia, third trimester 07/08/2019 08/21/2019 Overview: [...] of this encounter (statuses as of 02/02/2023) 12-31-2020 History of Past illness Narrative* Problem Noted Date Resolved Date Herpes 09/22/2020 12/19/2020 Overview: No known outbreak . IgM and IgG positive. 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.TOOL REPAIRER BENCH Severe preeclampsia, third trimester 07/08/2019 08/21/2019 Overview: - Features being RUQ pain - BPs mild to severe on admission - CBC/CMP wnl on admission - Magnesium started at [facility], currently running 2g/hr - Continue to monitor [...] of this encounter (statuses as of 02/22/2023) 12-31-2020 History of Past illness Narrative* Problem Noted Date Resolved Date Herpes 09/22/2020 12/19/2020 Overview: No known outbreak . IgM and IgG positive. 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.TOOL REPAIRER BENCH Severe preeclampsia, third trimester 07/08/2019 08/21/2019 Overview: [...] of this encounter (statuses as of 02/22/2023) 12-31-2020 History of Past illness Narrative* Problem Noted Date Resolved Date Herpes 09/22/2020 12/19/2020 Overview: No known outbreak . IgM and IgG positive. Lona Waters, PLASTIC BATTERY ASSEMBLER.TOOL REPAIRER BENCH Severe preeclampsia, third trimester 07/08/2019 08/21/2019 Overview: [...] of this encounter (statuses as of 02/22/2023) 12-31-2020 History of Past illness Narrative* Problem Noted Date Diagnosed Date Resolved Date Herpes 09/22/2020 12/19/2020 Overview: No known outbreak . IgM and IgG positive. 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.TOOL REPAIRER BENCH Severe preeclampsia, third trimester 07/08/2019 08/21/2019 Overview: [...] of this encounter (statuses as of 04/24/2023) 12-31-2020 History of Past illness Narrative* Problem Noted Date Diagnosed Date Resolved Date Herpes 09/22/2020 12/19/2020 Overview: No known outbreak . IgM and IgG positive. 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.TOOL REPAIRER BENCH Severe preeclampsia, third trimester 07/08/2019 08/21/2019 Overview: [...] of this encounter (statuses as of 05/23/2023) 12-31-2020 History of Past illness Narrative* Problem Noted Date Diagnosed Date Resolved Date Herpes 09/22/2020 12/19/2020 Overview: No known outbreak . IgM and IgG positive. 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.TOOL REPAIRER BENCH Severe preeclampsia, third trimester 07/08/2019 08/21/2019 Overview: - Features being RUQ pain - BPs mild to severe on admission - CBC/CMP wnl on admission - Magnesium started at [facility], currently running 2g/hr - Continue to monitor [...] of this encounter (statuses as of 06/14/2023) 12-31-2020 History of Past illness Narrative* Problem Noted Date Diagnosed Date Resolved Date Herpes 09/22/2020 12/19/2020 Overview: No known outbreak . IgM and IgG positive. 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.TOOL REPAIRER BENCH Severe preeclampsia, third trimester 07/08/2019 08/21/2019 Overview: [...] of this encounter (statuses as of 07/12/2023) 12-31-2020 History of Past illness Narrative* Problem Noted Date Diagnosed Date Resolved Date Herpes 09/22/2020 12/19/2020 Overview: No known outbreak . IgM and IgG positive. 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.TOOL REPAIRER BENCH Severe preeclampsia, third trimester 07/08/2019 08/21/2019 Overview: - Features being RUQ pain - BPs mild to severe on admission - CBC/CMP wnl on admission - Magnesium started at [facility], currently running 2g/hr - Continue to monitor [...] of this encounter (statuses as of 07/17/2023) 12-31-2020 History of Past illness Narrative* Problem Noted Date Diagnosed Date Resolved Date Herpes 09/22/2020 12/19/2020 Overview: No known outbreak . IgM and IgG positive. Lona Waters, RAMÓN.TOOL REPAIRER BENCH Severe preeclampsia, third trimester 07/08/2019 08/21/2019 Overview: [...] of this encounter (statuses as of 08/22/2023) 12-31-2020 History of Past illness Narrative* Problem Noted Date Diagnosed Date Resolved Date Herpes 09/22/2020 12/19/2020 Overview: No known outbreak . IgM and IgG positive. 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.TOOL REPAIRER BENCH Severe preeclampsia, third trimester 07/08/2019 08/21/2019 Overview: - Features being RUQ pain - BPs mild to severe on admission - CBC/CMP wnl on admission - Magnesium started at [facility], currently running 2g/hr - Continue to monitor [...] of this encounter (statuses as of 11/03/2023) 12-31-2020 History of Past illness Narrative* Problem Noted Date Diagnosed Date Resolved Date Herpes 09/22/2020 12/19/2020 Overview: No known outbreak . IgM and IgG positive. Lona Waters, PLASTIC BATTERY ASSEMBLER.TOOL REPAIRER BENCH Severe preeclampsia, third trimester 07/08/2019 08/21/2019 Overview: [...] of this encounter (statuses as of 12/24/2023) 12-31-2020 History of Past illness Narrative* Problem Noted Date Diagnosed Date Resolved Date Herpes 09/22/2020 12/19/2020 Overview: No known outbreak . IgM and IgG positive. 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.TOOL REPAIRER BENCH Severe preeclampsia, third trimester 07/08/2019 08/21/2019 Overview: - Features being RUQ pain - BPs mild to severe on admission - CBC/CMP wnl on admission - Magnesium started at [facility], currently running 2g/hr - Continue to monitor [...] of this encounter (statuses as of 12/24/2023) Consult note Author Eunice Pereira [facility] Note Date/Time December 17, 2024 10: 31[facility] Medical Records Department [address] [place] [address] Anesthesia Postop Eval I 12/17/24 1022 MR#: [id number] Acct: [id number] Name: EB HUI EILEEN Rep #:[id number] : 2000 24 From: Eunice Pereira CRNA PCP: JEIMY Abrams Status: REG SDC Y Race: C Location: [place] [address] Anesthesia: Postop Eval I Current Vital Signs [...] by Eunice AWAD> Date _ Eunice Pereira REDUCING SALON ATTENDANT Cosigner Signature: Date CC: ~ Signed [facility] Work Phone: Discharge summary Author Nella Escalera [facility] Note Date/Time December 17, 2024 11: 24am [facility] Medical Records Department [address] [place] [address] Instructions for Home/Discharge Instructions 12/17/24 1019 MR#: [id number] Acct: [id number] Name: EB HUI EILEEN Rep #:[id number] : 2000 24 From: Nella Hood MD PCP: CORE BAKER. JEIMY Pinto Status: REG [facility] [place] [place] Discharge Instructions Diet Discharge Diet: No restrictions [...] if you need an appointment please call [phone] Test Results: Test results from this visit will be discussed in further detail at your follow- up appointment, if applicable. Discharge Plan Admission Attending Provider: Nella Ward Primary Care Provider: Petty Vasquez Instructions Print Language: Albanian Discharge Orders/Prescriptions Prescriptions: No Action alprazolam 0.5 mg tablet 0.5 mg PO PRN Other Ambulatory Orders: ,Urine (Routine) Timeframe: 20241217 Facility: [facility] - Location: Laboratory Ordered By: Dr. Jamey Lilly Referrals / Follow Up: Petty Vasquez, BHUPENDRA-C [Primary Care Provider] - Disposition Disposition (needs filled in before D/C Order can be placed): Home, Self Care 12/17/24 1019<Electronically signed by Nella Ward MD>Nella Ward MD CC: CORE BAKER-C CORE BAKER. Petty Vasquez ~ Signed [facility] Work Phone: Evaluation note* Diagnosis Vaginal irritation- Primary Unspecified noninflammatory disorder of vagina Irritant contact dermatitis, unspecified trigger documented in this encounter [facility] noteNo assessment information availableWMercy [facility] Work Phone: Evaluation note* Diagnosis Positive urine test- Primary examination or test, positive result [facility] encounter [facility]* Diagnosis Oropharyngeal lesion- Primary Unspecified disease of pharynx documented in this encounter [facility] note* Diagnosis AVM (arteriovenous malformation)- Primary Congenital anomaly of the peripheral vascular system, unspecified site documented in this encounter [facility]* Diagnosis Pre-op evaluation- Primary Preoperative examination, unspecified AVM (arteriovenous malformation) Congenital anomaly of the peripheral vascular system, unspecified site Mild major depression (HCC) Major depressive disorder, single episode, mild Smoker Tobacco use disorder Frequent UTI Urinary tract infection, site not specified History of scoliosis Personal history of other musculoskeletal disorders documented in this encounter [facility] Diagnosis Pruritus- Primary Unspecified pruritic disorder documented in this encounter [facility] note* Diagnosis Burning with urination- Primary Dysuria Screening for STD (sexually transmitted disease) Screening examination for venereal disease Vaginal discharge Leukorrhea, not specified as infective documented in this encounter [facility]* Diagnosis Chlamydia- Primary Unspecified chlamydial infection, in conditions classified elsewhere and of unspecified site BV (bacterial vaginosis) Vaginitis and vulvovaginitis, unspecified Vaginal yeast infection Candidiasis of vulva and vagina documented in this encounter [facility] Diagnosis Vaginal discharge- Primary Leukorrhea, not specified as infective documented in this encounter [facility] note* Diagnosis Chlamydia- Primary Unspecified chlamydial infection, in conditions classified elsewhere and of unspecified site BV (bacterial vaginosis) Vaginitis and vulvovaginitis, unspecified documented in this encounter [facility] note* Diagnosis Onset Date Resolution Status Encounter for pre-employment health screening examination [facility] Work Phone: Evaluation note* Diagnosis Screening for HIV (human immunodeficiency virus)- Primary Special screening examination for other specified viral diseases documented in this encounter [facility] note* Diagnosis Viral illness- Primary Unspecified viral infection, in conditions classified elsewhere and of unspecified site Hemoptysis Hemoptysis, unspecified documented in this encounter [facility] note* Diagnosis Lower respiratory tract infection- Primary Other diseases of respiratory system, not elsewhere classified documented in this encounter [facility] note* Diagnosis Lower resp. tract infection- Primary Other diseases of respiratory system, not elsewhere classified documented in this encounter [facility] note* Diagnosis Encounter for sexually transmitted disease counseling- Primary Counseling on other sexually transmitted diseases Dysuria Vaginal discharge Leukorrhea, not specified as infective documented in this encounter [facility] note* Diagnosis Oropharyngeal mass Swelling, mass, or [...] Hemoptysis Hemoptysis, unspecified documented in this encounter [facility] note* Diagnosis Cough Chest pain, unspecified type Pre-op evaluation- Primary Preoperative examination, unspecified AVM (arteriovenous malformation) Congenital anomaly of the peripheral vascular system, unspecified site Mild major depression (HCC) Major depressive disorder, single episode, mild Smoker Tobacco use disorder Frequent UTI Urinary tract infection, site not specified History of scoliosis Personal history of other musculoskeletal disorders documented in this encounter [facility] note* Diagnosis Oropharyngeal mass Swelling, mass, or [...] both breasts- Primary documented in this encounter [facility] Diagnosis Oropharyngeal mass Swelling, mass, or [...] nonspecific immunological findings documented in this encounter [facility] note* Diagnosis Oropharyngeal mass Swelling, mass, or [...] high-risk sexual behavior [facility] Diagnosis Oropharyngeal mass Swelling, mass, or [...] of corpus uteri documented in this encounter [facility]* Diagnosis Oropharyngeal mass Swelling, mass, or [...] of unspecified site documented in this encounter Evaluation note* Diagnosis Oropharyngeal mass Swelling, mass, or [...] Preoperative examination, unspecified [facility] Additional Instructions Plenty of fluids and rest. Warm salt water gargling. Chloraseptic spray to help with the sore throat. Prednisone daily for the inflammation. Return if worse. Follow-up with ear nose and throat Dr. Arnaldo Vasquez if the inflammation in posterior pharynx does not improve.[facility] Work Phone: Hospital Discharge instructions Additional Instructions Ice all sore areas Alternate Tylenol and Motrin for pain and swelling. Follow-up with your doctor as needed.[facility] Work Phone: Hospital Discharge instructions Additional Instructions [...] care physician for further outpatient evaluation and management.[facility] Work Phone: Reason for referral (narrative)* Diagnostic Procedure Only (Routine) - Authorized Specialty Diagnoses / Procedures Referred By Contac t Referred To Contact [facility] Diagnoses Abnormal uterine bleeding (AUB) Procedures PELVIC US WHI US PELVIC NONOBSTETRIC REAL-TIME IMAGE COMPLETE Rubalcava, Petty, PLASTIC BATTERY ASSEMBLER.CNM [address] [place] [address] [address] Referral ID Status Reason Start Date Expiration Date Visits Requested Visits Authorized [id number] Authorized Auto-Generat ed Referral 10/26/2024 10/26/2025 1 1 * Physical Therapy (Routine) - Pending Review Specialty Diagnoses / Procedures Referred By Npaoleon t Referred To Contact [facility] Diagnoses Dysuria Procedures CONSULT TO PHYSICAL THERAPY PHYSICAL THERAPY [facility] HIGH COMPLEX 45 MINS Petty Rubalcava APRN.CNM [address] [place] [address] [facility] [place] [id number] Referral ID Status Reason Start Date Expiration Date Visits Requested Visits Authorized [id number] Pending Review Auto-Generat ed Referral 10/26/2024 10/26/2025 1 1 * Consult, Test, Treat (Routine) - Authorized Specialty Diagnoses / Procedures Referred By Napoleon t Referred To Contact Urology Diagnoses Dysuria Procedures CONSULT TO UROLOGY OFFICE/OUTPATIENT NEW HIGH MDM 60 MINUTES Petty Rubalcava APRN.CNM [address] [place] [address] Referral ID Status Reason Start Date Expiration Date Visits Requested Visits Authorized [id number] Authorized PCP Requested Referral 10/26/2024 10/26/2025 1 1 Reason for referral (narrative)No reason for referral [facility]: Reason for visit Narrative* Diagnostic Procedure Only (Routine) - Closed Specialty Diagnoses / Procedures Referred By Napoleon t Referred To Contact [facility] Diagnoses Abnormal uterine bleeding (AUB) Procedures PELVIC US WHI US PELVIC NONOBSTETRIC REAL-TIME IMAGE COMPLETE Petty Rubalcava APRN.CN [address] [place] [address] 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 Advance Directive(s) 07/08/2019 12:38 PM Advance Directive Response Recorded Date/ Time Living Will No September 16 9:55pm Power of Rigger Chief No September 16, 2022 9:55pm Advance Directive Response Recorded Date/ Time Living Will No March 03, 2023 10:02am Power of Rigger Chief No March 03 10:02am Advance Directive Response Recorded Date/ Time Living Will No June 12, 2023 6:49am Power of Rigger Chief No May 6:49am Advance Directive Response Recorded Date/ Time Living Will No July 28 9:52pm Power of Rigger Chief No July 28, 2023 9:52pm Advance Directive Response Recorded Date/ Time Living Will No December 11, 2024 8:51am Do you have a Healthcare Power of Rigger Chief? No December 11, 2024 8:51am Hospital Course [...] medical history significant for mono presents to [facility] with a CC of difficulty swallowing since . She tested positive for mononucleosis and strep culture was negative.?? Patient initially presented to [facility] on 12/[address] neck which demonstrated ill-defined mass from the R palantine tonsil to the R pterygoid muscle, no abcess was appreciated. She was started on dexamethasone and transferred to [facility] for ENT evaluation. Eb Hui is a 20 y.o. female here for painful swallowing most likely due to mono which she was diagnosed with on 11/29/20. CT reviewed shows homoge (more content not included)... Assessments Diagnosis Pharyngitis, acute Acute pharyngitis Mononucleosis Infectious mononucleosis Reason for Referral Specialty Diagnoses / Procedures Referred By Napoleon chase Referred To Contact Roberta Guthrie MD [facility] [place] [address] Referral ID Status Reason Start Date Expiration Date Visits Re quested Visits Authorized [id number] Closed 1 1 Specialty Diagnoses / Procedures Referred By Napoleon chase Referred To Contact Diagnoses AVM (arteriovenous malformation) Procedures REFER TO PACC - PRE ANESTHESIA CONSULTATION CLINIC OFFICE/OUTPATIENT [facility] 60-74 MINUTES Aliya Mcdaniels MD [address] [place] [address] Referral ID Status Reason Start Date Expiration Date Visits Requested Visits Authorized [id number] Authorized PCP Requested Referral 12/19/2022 12/19/2023 1 1 Specialty Diagnoses / Procedures Referred By Napoleon chase Referred To Contact Dermatology Diagnoses Pruritus Procedures CONSULT TO DERMATOLOGY Aliya Mcdaniels MD [address] [place] [address] Referral ID Status Reason Start Date Expiration Date Visits Requested Visits Authorized [id number] Ref Not Required PCP Requested Referral 02/01/2023 [...] Chief Complaint Admit Date Hysteroscopy,Dilation and Curettage [facility] 2024 8:06am Chief Complaint Admit Date Hysteroscopy,Dilation and Curettage [facility] 2024 8:06am YEAST INFECTION February 23, 2025 6:13a m Chief Complaint Admit Date Hysteroscopy,Dilation and Curettage [facility] 2024 8:06am YEAST INFECTION February 23, 2025 6:13a m SORE ON LIP/ COLD SORE? March 01, 2025 2 :16pm Reason for Visit Admit Date Yeast infection February 23, 2025 6:13a m Additional Source Comments INFORMATION SOURCE (unrecogn ized section and content) DATE CREATED AUTHOR 03/11/2018 [facility] DATE CREATED AUTHOR AUTHOR'S ORGANIZ ATION 05/09/2018 [facility] DATE CREATED AUTHOR AUTHOR'S ORGANIZ ATION 07/11/2019 [facility] DATE CREATED AUTHOR AUTHOR'S ORGANIZ ATION 07/30/2019 [facility] DATE CREATED AUTHOR AUTHOR'S ORGANIZ ATION 12/13/2020 [facility] DATE CREATED AUTHOR AUTHOR'S ORGANIZ ATION 07/07/2021 [facility] DATE CREATED AUTHOR AUTHOR'S ORGANIZ ATION 12/14/2021 [facility] DATE CREATED AUTHOR AUTHOR'S ORGANIZ ATION 01/07/2023 [facility] DATE CREATED AUTHOR AUTHOR'S ORGANIZ ATION 02/17/2025 [facility] DATE CREATED AUTHOR AUTHOR'S ORGANIZ ATION 02/17/2025 [facility] DATE CREATED AUTHOR AUTHOR'S ORGANIZ ATION 03/02/2025 [facility] Ordered Prescriptions (unrec ognized section [...] or prosecute any alcohol or drug abuse patient.In the event this information is protected by the Federal Confidentiality of Alcohol and Drug Abuse Patient Records regulations: The Federal rules restrict any use of the information to criminally investigate or prosecute any alcohol or drug abuse patient.In the event this information is protected by the Federal Confidentiality of Alcohol and Drug Abuse Patient Records regulations: The Federal rules restrict any use of the information to criminally investigate or prosecute any alcohol or drug abuse patient.In the event this information is protected by the Federal Confidentiality of Alcohol and Drug Abuse Patient Records regulations: The Federal rules restrict any use of the information to criminally investigate or prosecute any alcohol or drug abuse patient.In the event this information is protected by the Federal Confidentiality of Alcohol and Drug Abuse Patient Records regulations: The Federal rules restrict any use of the information to criminally investigate or prosecute any alcohol or drug abuse patient.In the event this information is protected by the Federal Confidentiality of Alcohol and Drug Abuse Patient Records regulations: The Federal rules restrict any use of the information to criminally investigate or prosecute any alcohol or drug abuse patient.In the event this information is protected by the Federal Confidentiality of Alcohol and Drug Abuse Patient Records regulations: The Federal rules restrict any use of the information to criminally investigate or prosecute any alcohol or drug abuse patient.In the event this information is protected by the Federal Confidentiality of Alcohol and Drug Abuse Patient Records regulations: The Federal rules restrict any use of the information to criminally investigate or prosecute any alcohol or drug abuse patient.In the event this information is protected by the Federal Confidentiality of Alcohol and Drug Abuse Patient Records regulations: The Federal rules restrict any use of the information to criminally investigate or prosecute any alcohol or drug abuse patient.In the event this information is protected by the Federal Confidentiality of Alcohol and Drug Abuse Patient Records regulations: The Federal rules restrict any use of the information to criminally investigate or prosecute any alcohol or drug abuse patient.In the event this information is protected by the Federal Confidentiality of Alcohol and Drug Abuse Patient Records regulations: The Federal rules restrict any use of the information to criminally investigate or prosecute any alcohol or drug abuse patient.In the event this information is protected by the Federal Confidentiality of Alcohol and Drug Abuse Patient Records regulations: The Federal rules restrict any use of the information to criminally investigate or prosecute any alcohol or drug abuse patient.In the event this information is protected by the Federal Confidentiality of Alcohol and Drug Abuse Patient Records regulations: The Federal rules restrict any use of the information to criminally investigate or prosecute any alcohol or drug abuse patient.In the event this information is protected by the Federal Confidentiality of Alcohol and Drug Abuse Patient Records regulations: The Federal rules restrict any use of the information to criminally investigate or prosecute any alcohol or drug abuse patient.In the event this information is protected by the Federal Confidentiality of Alcohol and Drug Abuse Patient Records regulations: The Federal rules restrict any use of the information to criminally investigate or prosecute any alcohol or drug abuse patient.In the event this information is protected by the Federal Confidentiality of Alcohol and Drug Abuse Patient Records regulations: The Federal rules restrict any use of the information to criminally investigate or prosecute any alcohol or drug abuse patient.In the event this information is protected by the Federal Confidentiality of Alcohol and Drug Abuse Patient Records regulations: The Federal rules restrict any use of the information to criminally investigate or prosecute any alcohol or drug abuse patient.In the event this information is protected by the Federal Confidentiality of Alcohol and Drug Abuse Patient Records regulations: The Federal rules restrict any use of the information to criminally investigate or prosecute any alcohol or drug abuse patient.In the event this information is protected by the Federal Confidentiality of Alcohol and Drug Abuse Patient Records regulations: The Federal rules restrict any use of the information to criminally investigate or prosecute any alcohol or drug abuse patient.In the event this information is protected by the Federal Confidentiality of Alcohol and Drug Abuse Patient Records regulations: The Federal rules restrict any use of the information to criminally investigate or prosecute any alcohol or drug abuse patient.In the event this information is protected by the Federal Confidentiality of Alcohol and Drug Abuse Patient Records regulations: The Federal rules restrict any use of the information to criminally investigate or prosecute any alcohol or drug abuse patient.In the event this information is protected by the Federal Confidentiality of Alcohol and Drug Abuse Patient Records regulations: The Federal rules restrict any use of the information to criminally investigate or prosecute any alcohol or drug abuse patient.In the event this information is protected by the Federal Confidentiality of Alcohol and Drug Abuse Patient Records regulations: The Federal rules restrict any use of the information to criminally investigate or prosecute any alcohol or drug abuse patient.In the event this information is protected by the Federal Confidentiality of Alcohol and Drug Abuse Patient Records regulations: The Federal rules restrict any use of the information to criminally investigate or prosecute any alcohol or drug abuse patient.In the event this information is protected by the Federal Confidentiality of Alcohol and Drug Abuse Patient Records regulations: The Federal rules restrict any use of the information to criminally investigate or prosecute any alcohol or drug abuse patient.In the event this information is protected by the Federal Confidentiality of Alcohol and Drug Abuse Patient Records regulations: The Federal rules restrict any use of the information to criminally investigate or prosecute any alcohol or drug abuse patient.In the event this information is protected by the Federal Confidentiality of Alcohol and Drug Abuse Patient Records regulations: The Federal rules restrict any use of the information to criminally investigate or prosecute any alcohol or drug abuse patient.In the event this information is protected by the Federal Confidentiality of Alcohol and Drug Abuse Patient Records regulations: The Federal rules restrict any use of the information to criminally investigate or prosecute any alcohol or drug abuse patient.In the event this information is protected by the Federal Confidentiality of Alcohol and Drug Abuse Patient Records regulations: The Federal rules restrict any use of the information to criminally investigate or prosecute any alcohol or drug abuse patient.In the event this information is protected by the Federal Confidentiality of Alcohol and Drug Abuse Patient Records regulations: The Federal rules restrict any use of the information to criminally investigate or prosecute any alcohol or drug abuse patient.In the event this information is protected by the Federal Confidentiality of Alcohol and Drug Abuse Patient Records regulations: The Federal rules restrict any use of the information to criminally investigate or prosecute any alcohol or drug abuse patient.In the event this information is protected by the Federal Confidentiality of Alcohol and Drug Abuse Patient Records regulations: The Federal rules restrict any use of the information to criminally investigate or prosecute any alcohol or drug abuse patient.In the event this information is protected by the Federal Confidentiality of Alcohol and Drug Abuse Patient Records regulations: The Federal rules restrict any use of the information to criminally investigate or prosecute any alcohol or drug abuse patient.In the event this information is protected by the Federal Confidentiality of Alcohol and Drug Abuse Patient Records regulations: The Federal rules restrict any use of the information to criminally investigate or prosecute any alcohol or drug abuse patient.In the event this information is protected by the Federal Confidentiality of Alcohol and Drug Abuse Patient Records regulations: The Federal rules restrict any use of the information to criminally investigate or prosecute any alcohol or drug abuse patient.In the event this information is protected by the Federal Confidentiality of Alcohol and Drug Abuse Patient Records regulations: The Federal rules restrict any use of the information to criminally investigate or prosecute any alcohol or drug abuse patient.In the event this information is protected by the Federal Confidentiality of Alcohol and Drug Abuse Patient Records regulations: The Federal rules restrict any use of the information to criminally investigate or prosecute any alcohol or drug abuse patient.In the event this information is protected by the Federal Confidentiality of Alcohol and Drug Abuse Patient Records regulations: The Federal rules restrict any use of the information to criminally investigate or prosecute any alcohol or drug abuse patient.In the event this information is protected by the Federal Confidentiality of Alcohol and Drug Abuse Patient Records regulations: The Federal rules restrict any use of the information to criminally investigate or prosecute any alcohol or drug abuse patient.In the event this information is protected by the Federal Confidentiality of Alcohol and Drug Abuse Patient Records regulations: The Federal rules restrict any use of the information to criminally investigate or prosecute any alcohol or drug abuse patient. Reason for Visit (unrecogniz ed section and [...] PACC - PRE ANESTHESIA CONSULTATION CLINIC OFFICE/OUTPATIENT [facility] 60-74 MINUTES Aliya Mcdaniels MD [address] [place] [address] Referral ID Status Reason Start Date Expiration Date V isits Requested Visits Authorized [id number] Closed PCP Requested Referral 12/19/2022 12/19/2023 1 [...] Care Teams (unrecognized sec tion and content) Director Smb Sales Relationship Specialty Start Date End Date Jamshid Carolann Ann [address] [place] [address] PCP - General Pediatrics 06/21/17 Director Smb Sales Relationship Specialty Start Date End Date Jamshid Carolann Ann [address] [place] [address] PCP - General Pediatrics 06/21/17 Director Smb Sales Relationship Specialty Start Date End Date Jamshid Carolann Ann [address] [place] [address] PCP - General Pediatrics 06/21/17 Director Smb Sales Relationship Specialty Start Date End Date Jamshid Carolann Ann [address] [place] [address] PCP - General Pediatrics 06/21/17 Director Smb Sales Relationship Specialty Start Date End Date Carolann Matthew [address] [place] [address] PCP - General Pediatrics 06/21/17 Director Smb Sales Relationship Specialty Start Date End Date Carolann Matthew [address] [place] [address] PCP - General Pediatrics 06/21/17 Director Smb Sales Relationship Specialty Start Date End Date Carolann Matthew [address] [place] [address] PCP - General Pediatrics 06/21/17 Director Smb Sales Relationship Specialty Start Date End Date [address] [place], [place] [address] PCP - General Pediatrics 06/21/17 Director Smb Sales Relationship Specialty Start Date End Date Melquiades Quintanilla, PLASTIC BATTERY ASSEMBLER.TOOL REPAIRER BENCH [address] [place] [address] PCP - General Internal Medicine 01/03/23 Director Smb Sales Relationship Specialty Start Date End Date Melquiades Quintanilla, PLASTIC BATTERY ASSEMBLER.TOOL REPAIRER BENCH [address] [place] [address] PCP - General Internal Medicine 01/03/23 Director Smb Sales Relationship Specialty Start Date End Date Melquiades Quintanilla, PLASTIC BATTERY ASSEMBLER.TOOL REPAIRER BENCH [address] [place] [address] PCP - General Internal Medicine 01/03/23 Director Smb Sales Relationship Specialty Start Date End Date Melquiades Quintanilla, PLASTIC BATTERY ASSEMBLER.TOOL REPAIRER BENCH [address] [place] [address] PCP - General Internal Medicine 01/03/23 Director Smb Sales Relationship Specialty Start Date End Date Melquiades Quintanilla, PLASTIC BATTERY ASSEMBLER.TOOL REPAIRER BENCH [address] [place] [address] PCP - General Internal Medicine 01/03/23 Director Smb Sales Relationship Specialty Start Date End Date Melquiades Quintanilla, PLASTIC BATTERY ASSEMBLER.TOOL REPAIRER BENCH [address] [place] [address] PCP - General Internal Medicine 01/03/23 Team Status: Active Member Role Status Dates Dr. Carolann Matthew MD Family Provider Active No Primary Care Physician Primary Care Provider Active Team Status: Inactive Member Role Status Dates No Primary Care Physician Primary Care Provider Active Dr. Rodo Lund MD Emergency Provider Active Director Smb Sales Relationship Specialty Start Date End Date Melquiades Quintanilla, PLASTIC BATTERY ASSEMBLER.TOOL REPAIRER BENCH [address] [place] [address] PCP - General Internal Medicine 01/03/23 Director Smb Sales Relationship Specialty Start Date End Date Melquiades Quintanilla, PLASTIC BATTERY ASSEMBLER.TOOL REPAIRER BENCH [address] [place] [address] PCP - General Internal Medicine 01/03/23 Director Smb Sales Relationship Specialty Start Date End Date Melquiades Quintanilla, PLASTIC BATTERY ASSEMBLER.TOOL REPAIRER BENCH [address] [place] [address] PCP - General Internal Medicine 01/03/23 Team Status: Active Member Role Status Dates Dr. Carolann Matthew MD Family Provider Active CORE BAKERWanda Vasquez NP-C Primary Care Provider Activ e Team Status: Inactive Member Role Status Dates No Primary Care Physician Primary Care Provider, Refer ring Provider Active Michele BRANCH, PA Attending Provider Active Team Status: Active Member Role Status Dates Employee Health Attending Provider Active Team Status: Inactive Member Role Status Dates No Primary Care Physician Primary Care Provider Active Dr. Rodo Lund MD Attending Provider, Emergency Pro vider Active Team Status: Inactive Member Role Status Dates Dr. Christian Callahan DO Emergency Provider Active CORE BAKERWanda Vasquez NP-Yoanna Primary Care Provider Activ e Director Smb Sales Relationship Specialty Start Date End Date Melquiades Quintanilla, PLASTIC BATTERY ASSEMBLER.TOOL REPAIRER BENCH [address] [place] [address] PCP - General Internal Medicine 01/03/23 Team Status: Inactive Member Role Status Dates Dr. Christian Callahan DO Attending Provider, Emergency Pro vider Active CORE BAKER. Petty Vasquez CORE BAKER-C Primary Care Provider Activ e Team Status: Inactive Member Role Status Dates NP. Petty Vasquez NP-C Primary Care Provider Activ e Dr. Alden Miner , Emergency Provider Active Director Smb Sales Relationship Specialty Start Date End Date Melquiades Quintanilla, PLASTIC BATTERY ASSEMBLER.TOOL REPAIRER BENCH [address] [place] [address] PCP - General Internal Medicine 01/03/23 Director Smb Sales Relationship Specialty Start Date End Date Melquiades Quintanilla, PLASTIC BATTERY ASSEMBLER.TOOL REPAIRER BENCH [address] [place] [address] PCP - General Internal Medicine 01/03/23 Director Smb Sales Relationship Specialty Start Date End Date Melquiades Quintanilla, PLASTIC BATTERY ASSEMBLER.TOOL REPAIRER BENCH [address] [place] [address] PCP - General Internal Medicine 01/03/23 Director Smb Sales Relationship Specialty Start Date End Date Melquiades Quintanilla, PLASTIC BATTERY ASSEMBLER.TOOL REPAIRER BENCH [address] [place] [address] PCP - General Internal Medicine 01/03/23 Director Smb Sales Relationship Specialty Start Date End Date Melquiades Quintanilla, PLASTIC BATTERY ASSEMBLER.TOOL REPAIRER BENCH [address] [place] [address] PCP - General Internal Medicine 01/03/23 Director Smb Sales Relationship Specialty Start Date End Date Melquiades Quintanilla, PLASTIC BATTERY ASSEMBLER.TOOL REPAIRER BENCH [address] [place], [place] [address] PCP - General Internal Medicine 01/03/23 Director Smb Sales Relationship Specialty Start Date End Date Carolann Matthew MD [address] [place] [address] PCP - General Pediatrics 06/21/17 01/02/23 Director Smb Sales Relationship Specialty Start Date End Date Melquiades Quintanilla, PLASTIC BATTERY ASSEMBLER.TOOL REPAIRER BENCH [address] [place], [place] [address] PCP - General Internal Medicine 01/03/23 Director Smb Sales Relationship Specialty Start Date End Date Melquiades Quintanilla, PLASTIC BATTERY ASSEMBLER.TOOL REPAIRER BENCH [address] [place] [address] PCP - General Internal Medicine 01/03/23 Director Smb Sales Relationship Specialty Start Date End Date Melquiades Quintanilla, PLASTIC BATTERY ASSEMBLER.TOOL REPAIRER BENCH [address] [place] [address] PCP - General Internal Medicine 01/03/23 Director Smb Sales Relationship Specialty Start Date End Date Melquiades Quintanilla, PLASTIC BATTERY ASSEMBLER.TOOL REPAIRER BENCH [address] [place], [place] [address] PCP - General Internal Medicine 01/03/23 Director Smb Sales Relationship Specialty Start Date End Date Melquiades Quintanilla, PLASTIC BATTERY ASSEMBLER.TOOL REPAIRER BENCH [address] [place] [address] PCP - General Internal Medicine 01/03/23 Director Smb Sales Relationship Specialty Start Date End Date Melquiades Quintanilla, PLASTIC BATTERY ASSEMBLER.TOOL REPAIRER BENCH [address] [place] [address] PCP - General Internal Medicine 01/03/23 Team Status: Active Member Role Status Dates NP. Petty Vasquez CORE BAKER-C Primary Care Provider Activ e Team Status: Inactive Member Role Status Dates NP. Petty Vasquez , CORE BAKER-C Primary Care Provider Activ e Start: December 17, 2024 End: December 17, 2024 Dr. Nella Ward MD Attending Provider Ac tive Start: December 17, 2024 End: December 17, 2024 Dr. Nella Ward MD Referring Provider Ac tive Start: December 17, 2024 End: December 17, 2024 Director Smb Sales Relationship Specialty Start Date End Date Melquiades Quintanilla, PLASTIC BATTERY ASSEMBLER.TOOL REPAIRER BENCH [address] [place], [place] [id number] PCP - General Internal Medicine 01/03/23 Team Status: Active Member Role Status Dates Petty Vasquez NP-C Primary Care Provider Active Team Status: Inactive Member Role Status Dates Petty Vasquez CORE BAKER-C Primary Care Provider Active Start: December 17, 2024 End: December 17, 2024 Dr. Nella Ward MD Attending Provider Ac tive Start: December 17, 2024 End: December 17, 2024 Dr. Nella Ward MD Referring Provider Ac tive Start: December 17, 2024 End: December 17, 2024 Team Status: Inactive Member Role Status Dates Petty Lopezr , CORE BAKER-C Primary Care Provider Active Start: February 23, 2025 End: February 23, 2025 Petty Vasquez , CORE BAKER-C Referring Provider Active Start: February 23, 2025 End: February 23, 2025 SARINA Darnell Attending Provider Active Sta rt: February 23, 2025 End: February 23, 2025 Team Status: Inactive Member Role Status Dates Petty Vasquez CORE BAKER-C Primary Care Provider Active Start: March 01, 2025 End: March 01, 2025 Petty Vasquez , CORE BAKER-C Referring Provider Active Start: March 01, 2025 [...] BE BASED ON THE PRIMARY CLINICAL RECORDS. [facility] [employer] [facility]. provides no warranty or guarantee of the accuracy or completeness of information in this document.
[2025-04-08 00:26] VITALS: BP 116/63; PULSE 86; RESP 17; TEMP 37; O2SAT 98
== END 2025-04-08 00:27 | disposition home or self-care (01) ==
LOC: ED 04-08 00:04
PROVIDERS: Emergency Provider Emergency Medicine; PCP Nurse Practitioner Family; Visit Provider Emergency Medicine
DX: R21 Rash and other nonspecific skin eruption (principal); F17.290 Nicotine dependence, other tobacco product, uncomplicated
CPT/HCPCS: 96372; 99283

== ENCOUNTER 2025-08-09 21:13 | Emergency (ER) | payer MEDICAID, SELFPAY ==
[2025-08-09 21:14] VITALS: BP 143/92; PULSE 83; RESP 16; TEMP 36.2; O2SAT 97; BMI 25.9
--- OUTSIDE RECORDS SUMMARY | 2025-08-09 21:38 | XMS RPT_ITS | CCD ---
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 Emergency Department Summary on 04-07-2025 Emergency Department Summary [facility] Medical Records Department [address] [place] [address] Emergency Department Summary 04/07/25 MR#: [id number] Acct: [id number] Name: EB HUI Rep #: [id number] : 2000 25 From: Alden Miner DO PCP: JEIMY Pinto Status:PRE ER Location: ED HPI History of Present Illness Chief Complaint: Itching PFSH PFSH Medical History Hx of arteriovenous malformation (AVM) Wears contact lenses Wears glasses MRSA infection Depression Anxiety Alcohol use Loss of consciousness Smoker Home Medications ???Medication ???Instructions ???Recorded ???Last Taken ???Type NK 04/07/25 Unknown History Allergy/AdvReac Type Severity Reaction Status Date / Time No Known Allergies Allergy Verified 04/07/25 23:12 Surgical History History of tonsillectomy and adenoidectomy Social History Smoking Status: Current every day smoker tobacco type: e-cigarettes EXAM Physical Exam Const Vital Signs: 04/07/25 23:12 Temperature 98.6 F Temperature Source Oral Pulse Rate 86 Respiratory Rate 17 Blood Pressure 126/83 H Blood Pressure Mean 97 Pulse Ox 98 Oxygen Delivery Method Room Air MDM [facility] MDM Narrative Medical decision making narrative: HISTORY OF PRESENT ILLNESS: Chief complaint: Itching 25-year-old female presents with itching. Notes itchiness of scalp and all over her body. This began []. No new foods or travel REVIEW OF SYSTEMS: Pertinent positives: Itching Pertinent negatives: Fever, vomiting. PHYSICAL EXAM: Nursing triage notes reviewed, Vital signs reviewed Constitutional: please see mdm HENT: MMM Eyes: Pupils equal round and reactive to [...] (radial, femoral, posterior tibial) in all extremities Abdomen: Soft, there is no tenderness, rigidity, rebound or guarding, no obvious peritoneal signs, no palpable pulsatile abdominal masses, no auscultated abdominal bruit : No CVAT Extremities: No edema Neuro: No new focal neurological deficits, cranial nerves II through XII intact, 5/5 strength in all present extremities. Intact sensation to light touch in all present extremities, 2+ reflexes bila teral patella tendons. Skin: Nonspecific erythematous lesions noted to the posterior scalp, no crepitus or bullae, no warmth. Lesions are blanchable. They are itchy to the patient. They do have yellow crusting noted. They are not in a pattern that is consistent with tinea capitis or other fungal infection. They are not warm and no palpable fluctuance to suggest abscess or bacterial infection MEDICAL DECISION MAKING: Chief Complaint: please see HPI External records reviewed: Reviewed prior ED visit History obtained from others: Mother Consults: none [facility] Narrative: The patient was initially hemodynamically stable, afebrile and nontoxic-appearing. Scalp exam consistent with nonspecific dermatitis. Will give symptomatic therapy in the form of steroids, antihistamines. No sign of fungal or bacterial infection on my initial exam. Patient was given PCP and dermatology follow-up. The patient and/or family, caregivers express understanding. The patient and/or family, caregivers agrees with the plan. Shared decision making: I will have a discussion with the patient and or visitors regarding risk/benefits of further testing or admission. They will be made aware of of the risk/benefits inherent in this decision they will be given the opportunity to voice understanding. Total critical care time today provided was at least 0 [] minutes. This excludes separately billable procedures. Critical care time (if documented) is secondary to the patient having high probability of clinically significant/life threatening deterioration in the patient's condition which required my urgent intervention. Impression: 1. Itching 2. Scalp rash Dispo: Discharge This note was generated with Codementor dictation software. It may contain incorrect words, spelling, and punctuation that were not noted in review of the chart prior to signing. Discharge Plan Triage Chief Complaint: Itching ED Provider: Alden Miner Dx/Rx/DC Orders Prescriptions: No Action NK Primary Care Provider: Petty Vasquez Referrals: Petty Vasquez, [employer] [Primary Care Provider] - Print Language: Zambian What to do if you (more content not included)... Normal [facility] Office Visit Reporton 2024 Office Visit Report [facility] [address] [place] [address] OFFICE VISIT Date of Service: 03/01/25 MR#: [id number] Acct: [id number] Patient: EB HUI Rep #: [id number] : 2000 Provider: SARINA Sanchez Age/Sex: 25/F Location: [facility] Status: Signed Intake Vital Signs 02/23/25 06:20 06/09/25 14:24 Height 1.68 m 1.68 m Weight: [...] 15 grams 0RF 03/01/25 1500 Date Tomás BRANCH Cosigner Signature: Date (if applicable) CC: Normal [facility] Office Visit Reporton 2024 Office Visit Report [facility] [address] [place] [address] OFFICE VISIT Date of Service: 02/23/25 MR#: [id number] Acct: [id number] Patient: EB HUI Rep #: [id number] 4 : 2000 Provider: SARINA Sanchez Age/Sex: 25/F Location: [facility] Status: Signed Intake Vital Signs 12/17/24 08:37 [...] 1 TAB 0RF 02/23/25 0636 Date Tomás Yaw SARINA Justice Signature: Date (if applicable) CC: Normal [facility] URINE CULTURE [CCL]on 2024 Bacteria identified Cx Nom (U) URCUL See Results Below See Below CULTURE, URINE NORMAL UROGENITAL ZIGGY 50,000-<100,000 CFU/ml Normal urogenital ziggy SOURCE: Urine (Nonspecific) [facility] [address] [place] [address] Marcos Shukla III, M.D. [id number] SEND TO IC NO Normal [facility] Comment on above: Performed By: #### 2 97024 #### [facility],[address] [place] [address] Bacteria Ur Culton 5 Bacteria identified Cx Nom (U) ORGANISM ID: 1 50,000-<100,000 CFU/ml Normal urogenital ziggy Normal [facility] Comment on above: Performed By: #### 6 30-4 ####[facility] LABCLIA [id number] [place] [address] [place] LYME AB PANEL WBLOT [CCL]on 01-15-2025 LYME AB PANEL WBLOT [CCL] Normal [facility] Comment on above: Result Comment: ly _ LYME AB PANEL WBLOT [CCL]_ SEE SCANNED REPORT Performed By: #### 2 63798 #### [address] [address] EBV AB TO VIRAL CAPSID ATIGE N,IgM [CCL]on 01-13-2025 EBV VCA IgM, Qual Negative Normal Negative [facility] Comment on above: Result Comment: No s erological evidence of recent EBV infection. [facility] [employer] [address] [place] [id number] Marcos Shukla III, M.D. [id number] Performed By: #### 2 05788 #### [address] [address] LYME EARLY (SIGNS/SYMP <=30 DAYS) [CCL]on 01-13-2025 Lyme IgG IgM Ab Negative Normal Negative [facility] Comment on above: Result Comment: Rece nt infection with B. burgdorferi sensu lato cannot be excluded if the specimen collected within four weeks after the onset of signs and symptoms or within six weeks after a known tick exposure. Clinical and epidemiological correlation is required. [facility] [employer] [address] [place] [address] Marcos Shukla III, M.D. [id number] Performed By: #### 2 48253 #### [address] [address] VITAMIN D, 1,25 - DIHYDROXY [CCL]on 01-13-2025 Vit D,1,25 Dihydroxy 36.6 pg/mL Normal 19.9-79.3 [facility] Comment on above: Result Comment: [facility] [employer] [facility] [place] [address] Marcos Shukla III, M.D. [id number] Performed By: #### 2 57252 #### [address] [address] 1,25-dihydroxyvitamin D3 [Ma ss/Vol]on 01-12-2025 VIT D1,25 DIHYDROXY 36.6 pg/mL Normal 19.9-79.3 [facility] Comment on above: Order Comment: Melissapippa soares Type: BLOOD SPECIMENOrdering Facility: [facility] Address: [address] [place] [address] Performed By: #### 7 886-5, 1649-3, 93679-3, 14819-7 ####[facility] LABIA [id number] [place] [id number] [place] B. burgdorferi IgG and IgM p min (S)on 01-12-2025 B. burgdorferi IgG+IgM Qn (S) Negative Normal Negative [facility] Comment on above: Order Comment: [facility] Type: BLOOD SPECIMENOrdering Facility: [facility] Address: [address] [place] [address] Result Comment: Rece nt infection with B. burgdorferi sensu lato cannot be excluded if the specimen collected within four weeks after the onset of signs and symptoms or within six weeks after a known tick exposure. Clinical and epidemiological correlation is required. Performed By: #### 7 886-5, 1649-3, 40600-4, 32178-6 ####[facility] LABIA [id number] [place] [id number] [place] B. burgdorferi IgG+IgM [...] be helpful. Clinical correlation is necessary. Normal [facility] Comment on above: Order Comment: Melissapippa soares Type: BLOOD SPECIMENOrdering Facility: [facility] Address: [address] [place] [address] Performed By: #### 7 886-5, 1649-3, 88037-9, 01282-1 ####[facility] LABCLIA [id number] [address] [place] [address] [place] B. burgdorferi IgG band pattern IB (S) [Interp] No Bands Seen Normal [facility] Comment on above: Order Comment: Speci men Type: BLOOD SPECIMENOrdering Facility: [facility] Address: [address] [place] [address] Performed By: #### 7 886-5, 1649-3, 84534-2, 47901-7 ####[facility] LABCLIA [id number] [address] [place] [address] [place] B. burgdorferi IgG IB Ql (S) Negative Normal Negative [facility] Comment on above: Order Comment: Speci men Type: BLOOD SPECIMENOrdering Facility: [facility] Address: [address] [place] [address] Result Comment: CDC criteria for a positive Western blot are the presence of >=5 bands for IgG. Performed By: #### 7 886-5, 1649-3, 70402-6, 75966-4 ####[facility] LABCLIA [id number] [address] [place] [address] [place] B. burgdorferi IgM band pattern IB (S) [Interp] p-41 Normal [facility] Comment on above: Order Comment: Speci men Type: BLOOD SPECIMENOrdering Facility: [facility] Address: [address] [place] [address] Result Comment: p-39 Performed By: #### 7 886-5, 1649-3, 93651-8, 01034-3 ####[facility] LABCLIA [id number] [address] [address] [place] B. burgdorferi IgM IB Ql (S) Positive Abnormal Negative [facility] Comment on above: Order Comment: Speci men Type: BLOOD SPECIMENOrdering Facility: [facility] Address: [address] [place] [address] Result Comment: CDC criteria for a positive Western Blot are the presence of >=2 bands for IgM. Performed By: #### 7 886-5, 1649-3, 36739-7, 65053-7 ####[facility] LABCLIA [id number] [address] OF [facility] CBC + DIFFon 01-12-2025 Baso # 0.01 x10EE3/UL Normal 0.00 - 0.10 [facility] Comment on above: Performed By: #### 2 70107 #### [facility],[address] [place] [address] Basophils/100 WBC (Bld) 0.2 % Normal 0.0 - 2.0 [facility] Comment on above: Performed By: #### 2 33797 #### [facility],[address] [place] [address] CBC + DIFF Normal [facility] Comment on above: Result Comment: CBC- COMPLETE BLOOD COUNT Performed By: #### 2 11407 #### [facility],[address] [place] [address] EO # 0.02 x10EE3/UL Normal 0.00 - 0.50 [facility] Comment on above: Performed By: #### 2 40079 #### [facility],[address] [place] [address]671 Eosinophils/100 WBC (Bld) 0.4 % Normal 0.0 - 7.0 [facility] Comment on above: Performed By: #### 2 27807 #### [facility],[address] [place] [address]199 Erythrocyte distribution width (RBC) [Ratio] 12.5 % Normal 12.0 - 15.6 [facility] Comment on above: Performed By: #### 2 99784 #### [facility],[address] [place] [address] Hematocrit (Bld) [Volume fraction] 42.9 % Normal 34.0 - 46.0 [facility] Comment on above: Performed By: #### 2 86439 #### [facility],[address] [place] [address] Hemoglobin (Bld) [Mass/Vol] 15.0 g/dL Normal 12.0 - 16.0 [facility] Comment on above: Performed By: #### 2 41397 #### [facility],[address] [place] [address] Lymph # 1.94 x10EE3/UL Normal 0.80 - 2.80 [facility] Comment on above: Performed By: #### 2 67603 #### [facility],[address] [place] [address] Lymphocytes/100 WBC (Bld) 28.2 % Normal 20.0 - 45.0 [facility] Comment on above: Performed By: #### 2 09355 #### [facility],[address] [place], [place] [address] MANUAL DIFF N/A Normal [facility] Comment on above: Performed By: #### 2 09151 #### [facility],[address] [place] [address]324 MCH (RBC) [Entitic mass] 31 pg Normal 27 - 33 [facility] Comment on above: Performed By: #### 2 06459 #### [facility],[address] [place] [address] MCHC 35 X10 3 Normal 32 - 36 [facility] Comment on above: Performed By: #### 2 52535 #### [facility],[address] [place] [address] 11285 MCV (RBC) [Entitic vol] 90 fL Normal 80 - 99 [facility] Comment on above: Performed By: #### 2 46993 #### [facility],[address] [place] [address] Thurston # 0.41 x10EE3/UL Normal 0.20 - 1.00 [facility] Comment on above: Performed By: #### 2 99564 #### [facility],[address] [place] [address] MONOS % 5.9 % Normal 0.0 - 10.0 [facility] Comment on above: Performed By: #### 2 21092 #### [facility],[address] [place] [address] Morphology Jez (Bld) [Interp] N/A Normal [facility] Comment on above: Performed By: #### 2 10767 #### [facility],[address] [place] [address] Neut # 4.48 x10EE3/UL Normal 1.50 - 7.10 [facility] Comment on above: Performed By: #### 2 31322 #### [facility],[address] [place] [address] Neutrophils/100 WBC (Bld) 65.4 % Normal 46.0 - 76.0 [facility] Comment on above: Performed By: #### 2 71425 #### [facility],[address] [place] [address] PLATELET 294 x10EE3/UL Normal 150 - 450 [facility] Comment on above: Performed By: #### 2 07356 #### [facility],[address] [place] [address] 69307 Platelet mean volume (Bld) [Entitic vol] 8.0 fL Normal 6.6 - 10.5 [facility] Comment on above: Result Comment: AUTO MATED DIFFERENTIAL Performed By: #### 2 23749 #### [facility],[address] [place] [address] RBC 4.78 x 10EE6/UL Normal 4.10 - 5.30 [facility] Comment on above: Performed By: #### 2 82279 #### [facility],[address] [place] [address]344 WBC 6.9 x 10EE3/UL Normal 4.5 - 10.8 [facility] Comment on above: Performed By: #### 2 91882 #### [facility],[address] [place] [address] CMP with eGFRon 01-12-2025 AGE 24 years Normal [facility] Comment on above: Performed By: #### 2 05679 #### [facility],[address] [place] [address] 98160 Albumin [Mass/Vol] 4.1 g/dL Normal 3.4 - 5.0 [facility] Comment on above: Performed By: #### 2 26867 #### [facility],[address] [place] [address]700 Albumin/Globulin [Mass ratio] 1.1 {ratio} Normal 0.9 - 1.6 [facility] Comment on above: Performed By: #### 2 65136 #### [facility],[address] [place] [address] ALK PHOS 53 U/L Normal 46 - 116 [facility] Comment on above: Performed By: #### 2 68164 #### [facility],[address] [place] [address]9945 ALT [Catalytic activity/Vol] 19 U/L Normal 16 - 63 [facility] Comment on above: Performed By: #### 2 52392 #### [facility],[address] [place] [address] Anion gap [Moles/Vol] 10 mmol/L Normal 10 - 20 [facility] Comment on above: Performed By: #### 2 56246 #### [facility],[address] [place] [address] 60755 AST [Catalytic activity/Vol] 14 U/L Normal 13 - 39 [facility] Comment on above: Performed By: #### 2 59095 #### [facility],[address] [place] [address] B/C RATIO 18 ratio Normal 0 - 30 [facility] Comment on above: Performed By: #### 2 17269 #### [facility],[address] [place] [address] 21665 Bilirubin [Mass/Vol] 0.6 mg/dL Normal 0.2 - 1.0 [facility] Comment on above: Performed By: #### 2 72219 #### [facility],[address] [place] [address]263 Calcium [Mass/Vol] 9.1 mg/dL Normal 8.5 - 10.1 [facility] Comment on above: Performed By: #### 2 98146 #### [facility],[address] [place] [address]186 Chloride [Moles/Vol] 102 mmol/L Normal 98 - 107 [facility] Comment on above: Performed By: #### 2 94055 #### [facility],[address] [place] [address] 78647 CMP with eGFR Normal [facility] Comment on above: Result Comment: COMP REHENSIVE METABOLIC PANEL Performed By: #### 2 32010 #### [facility],[address] [place] [address] CO2 [Moles/Vol] 30.0 mmol/L Normal 21.0 - 32.0 [facility] Comment on above: Performed By: #### 2 18438 #### [facility],[address] [place] [address] Creatinine [Mass/Vol] 0.77 mg/dL Normal 0.55 - 1.02 [facility] Comment on above: Performed By: #### 2 71353 #### [facility],[address] [place] [address] GFR/1.73 sq M.predicted among non-blacks MDRD (S/P/Bld) [Vol rate/Area] mL/min/{1.73_m2} Normal 60 - 999 [facility] Comment on above: Performed By: #### 2 94238 #### [facility],[address] [place], [place] [address] Result Comment: ACCO RDING TO THE NATIONAL KIDNEY DISEASE EDUCATION PROGRAM(NKDE), A NORMAL eGFR IS A VALUE GREATER THAN OR EQUAL TO 60 ML/MIN/1.73 SQ METERS. CHRONIC KIDNEY DISEASE: <60mL/MIN/1.73 SQ METERS KIDNEY FAILURE: <15mL/MIN/1.73 SQ METERS THIS TEST SHOULD ONLY BE USED FOR PATIENTS 18 YEARS OF AGE AND OLDER. Globulin (S) [Mass/Vol] 3.8 g/dL Normal 1.5 - 3.8 [facility] Comment on above: Performed By: #### 2 91255 #### [place] [address] Glucose [Mass/Vol] 81 mg/dL Normal 74 - 106 [facility] Comment on above: Performed By: #### 2 99229 #### [place] [id number] Potassium [Moles/Vol] 4.0 mmol/L Normal 3.5 - 5.1 [facility] Comment on above: Performed By: #### 2 80866 #### [place] [id number] Protein [Mass/Vol] 7.9 g/dL Normal 6.4 - 8.2 [facility] Comment on above: Performed By: #### 2 23679 #### [address] [address] Sodium [Moles/Vol] 138 mmol/L Normal 136 - 145 [facility] Comment on above: Performed By: #### 2 64579 #### [address] [address] Urea nitrogen [Mass/Vol] 14 mg/dL Normal 7 - 18 [facility] Comment on above: Performed By: #### 2 15717 #### [address] [address] EBV capsid IgM Qn (S)on 12-23 EBV VCA IGM, QUAL Negative Normal Negative [facility] Comment on above: Order Comment: Speci men Type: BLOOD SPECIMENOrdering Facility: [facility] Address: [address] [place] [address] Result Comment: No s erological evidence of recent EBV infection. Performed By: #### 7 886-5, 1649-3, 78853-4, 12410-4 ####[facility] LABCLIA [id number] [place] [address] [place] LIPID PROFILEon 01-12-2025 Cholesterol [Mass/Vol] 190 mg/dL Normal 0 - 240 [facility] Comment on above: Performed By: #### 2 58718 #### [facility],[address] [place] [address]707 Cholesterol in HDL [Mass/Vol] 47 mg/dL Normal 40 - 60 [facility] Comment on above: Performed By: #### 2 11037 #### [facility],[address] [place] [address]7664 Cholesterol in LDL [Mass/Vol] 123 mg/dL Normal 0 - 129 [facility] Comment on above: Performed By: #### 2 71181 #### [facility],[address] [place] [address] 47875 Cholesterol.total/Ch olesterol in HDL [Mass ratio] 4.0 {ratio} Normal 0.0 - 5.0 [facility] Comment on above: Performed By: #### 2 43975 #### [facility],[address] [place] [address] 84228 Lipid 1996 panel Normal [facility] Comment on above: Result Comment: LIPI D PROFILE Performed By: #### 2 65040 #### [facility],[address] [place] [address] 11208 Triglyceride [Mass/Vol] 101 mg/dL Normal 0 - 150 [facility] Comment on above: Performed By: #### 2 73570 #### [facility],[address] [place] [address] Mir 12-23-2024 CNPN Telephone (OBGYWM) -- EB HUI ([id number]) 1 F Date Time Provider Department 12/23/24 NELLA JOHN OBGYWYessenia During your visit today, we recorded the following information about you: Nella John MD 12/23/2024 4:13 PM Signed Please notify patient that tissue is benign from [facility]. Allergies As of Date: 12/23/2024 (No [...] Status:Closed by JOLANTA DAY on 12/24/24 Normal [facility] Anion gap in Serum or Plasma Ordered By: Jamey Lilly on 12-17-2024 Anion gap [Moles/Vol] 9 mmol/L 02-04 [facility] BUN/creatinine ratioOrdered By: Jamey Lilly on 12-17-2024 Urea nitrogen/Creatinine [Mass ratio] 14.6 mg/mg 07-12 [facility] Basic Metabolic Profile (BMP )on 12-17-2024 BUN/CRE 14.6 RATIO Normal 07-12 [facility] Comment on above: Performed By: #### L 500.2500 #### [facility] [address] [place], [address] Calcium [Mass/Vol] 8.3 mg/dL Normal 7.6-11.0 [facility] Comment on above: Performed By: #### L 500.2500 #### [facility] [address] [place], [address] Chloride [Moles/Vol] 111 mmol/L High 98-108 [facility] Comment on above: Performed By: #### L 500.2500 #### [facility] [address] [place], [address] CO2 [Moles/Vol] 20.4 mmol/L Low 21.0-32.0 [facility] Comment on above: Performed By: #### L 500.2500 #### [facility] [address] [place], [address] Creatinine [Mass/Vol] 0.67 mg/dL Low 0.70-1.20 [facility] Comment on above: Performed By: #### L 500.2500 #### [facility] [address] [place], [address] ECRCL 121.21 ml/min Normal 50-250 [facility] Comment on above: Performed By: #### L 500.2500 #### [facility] [address] [place], [address] GAP 9 Normal 5-15 [facility] Comment on above: Performed By: #### L 500.2500 #### [facility] [address] [place], [address] GFR/1.73 sq M.predicted among non-blacks MDRD (S/P/Bld) [Vol rate/Area] 125 mL/min/{1.73_m2} Normal >60 [facility] Comment on above: Result Comment: mL/m in/1.73m2 CKD-EPI Creatinine Equation (2020) Performed By: #### L 500.2500 #### [facility] [address] [place], [address] Glucose [Mass/Vol] 99 mg/dL Normal 70-99 [facility] Comment on above: Performed By: #### L 500.2500 #### [facility] [address] [place], [address] Potassium [Moles/Vol] 3.8 mmol/L Normal 3.3-5.1 [facility] Comment on above: Performed By: #### L 500.2500 #### [facility] [address] [place], [address] Sodium [Moles/Vol] 140 mmol/L Normal 133-145 [facility] Comment on above: Performed By: #### L 500.2500 #### [facility] [address] [place], [address] Urea nitrogen [Mass/Vol] 10 mg/dL Normal 4-19 [facility] Comment on above: Performed By: #### L 500.2500 #### [facility] [address] [place], [address] Carbon dioxide, total [Moles /volume] in Central venous bloodOrdered By: Jamey Lilly on 12-17-2024 CO2 [Moles/Vol] 20.4 mmol/L Low 21.0-32.0 [facility] Chloride assayOrdered By: Diamond on 12-17-2024 Chloride [Moles/Vol] 111 mmol/L High 98-108 [facility] Discharge Instructionon 11-22 Discharge Instruction [facility] Medical Records Department [address] [place] [address] Instructions for Home/Discharge Instructions 12/17/24 1019 MR#: [id number] Acct: [id number] Name: EB HUI Rep #: [id number] : 2000 24 From: Nella Ward MD [...] if you need an appointment please call [phone] Test Results: Test results from this visit will be discussed in further detail at your follow-up appointment, if applicable. Discharge Plan Admission Attending Provider: Nella Ward Primary Care Provider: Petty Vasquez Instructions Print Language: Zambian Discharge Orders/Prescriptions Prescriptions: No Action alprazolam 0.5 mg tablet 0.5 mg PO PRN Other Ambulatory Orders: ,Urine (Routine) Timeframe: 20241217 Facility: [facility] - Location: Laboratory Ordered By: Dr. Jamey Lilly Referrals / Follow Up: Petty Vasquez NP-C [Primary Care Provider] - Disposition Disposition (needs filled in before D/C Order can be placed): Home, Self Care 12/17/24 1019 Nella Ward MD CC: EXTRUSION UTILITY WORKER-C NP. Petty Vasquez Signed Normal [facility] Estimation of creatinine micky aranceOrdered By: Jamey Lilly on 12-17-2024 Estimated Creatinine Clearance Calc 121.21 ml/min 50-250 [facility] GFR/1.73 sq M.predicted juanita g non-blacks MDRD (S/P/Bld) [Vol rate/Area]Ordered By: Jamey Lilly on 12-17-2024 Estimated GFR (MDRD) Non-Af Amer 125 >60 [facility] Comment on above: mL/min/1.73m2 CKD-EP I Creatinine Equation (2020) Glomerular filtration rate ( GFR) estimation/1.73 sq m using serum, plasma, or whole bOrdered By: Jamey Lilly on 12-17-2024 GFR/1.73 sq M.predicted among non-blacks MDRD (S/P/Bld) [Vol rate/Area] 125 mL/min/{1.73_m2} >60 [facility] Comment on above: mL/min/1.73m2 CKD-EP I Creatinine Equation (2020) MR/POSTOP.ANEon 12-17-2024 MR/POSTOP.ANE [facility] Medical Records Department [address] [place] [address] Anesthesia Postop Eval I 12/17/24 1022 MR#: [id number] Acct: [id number] Name: EB HUI Rep #: [id number] : 2000 24 From: Eunice Pereira CRNA PCP: JEIMY Abrams Status:REG SDC Y Race: C Location: [place] [address] Anesthesia: Postop Eval I Current Vital Signs [...] CRNA Cosigner Signature: Date CC: Signed Normal [facility] MR/[id number] 12-17-2024 MR/POSTOPAN2 [facility] Medical Records Department [address] [place] [address] Anesthesia Postop Eval II 12/17/24 2245 MR#: [id number] Acct: [id number] Name: HUI,EB ARELLANO Rep #: [id number] : 2000 24 From: Jamey Lilly MD PCP: JEIMY Abrams Status:DEP [facility] Y Race: C Location: [facility] Anesthesia Postop Eval I Sum Postop Eval Completion status Anesthesia document: Postop Eval 1 completed: Yes Anesthesia Postop Eval I Summary Anesthesia Postop Eval I Summary: Anesthesia Postop Eval I: Assessment Summary Airway patent Yes 12/17/24 10:31 ECOLOGICAL RISK ASSESSOR.HBARR Spontaneous unlabored Yes 12/17/24 10:31 ECOLOGICAL RISK ASSESSOR.HBARR respirations Mental status Awake,Calm 12/17/24 10:31 ECOLOGICAL RISK ASSESSOR.HBARR nausea No 12/17/24 10:31 ECOLOGICAL RISK ASSESSOR.HBARR Vomiting No 12/17/24 10:31 ECOLOGICAL RISK ASSESSOR.HBARR Anesthesia Postop Eval I: Fluid Summary Crystalloid volume administer 500 12/17/24 10:31 ECOLOGICAL RISK ASSESSOR.HBARR (ml) Colloids volume administered ( ml) Blood Product volume administered (ml) Total IV fluid infused 500 12/17/24 10:31 ECOLOGICAL RISK ASSESSOR.HBARR Anesthesia Postop Eval I: Summary Notes Anesthesia Complication No 12/17/24 10:31 ECOLOGICAL RISK ASSESSOR.HBARR Anesthesia Complication Comment: Post-operative progress note Anesthesia: Postop Eval II Evaluation Mental status: Awake and Calm Pain Level: 1 nausea: No Vomiting: No Complications Anesthesia Complication: No 12/17/24 2245 Date Jamey Lilly MD Cosigner Signature: Date CC: Signed Normal [facility] Operative Reporton 5 Operative Report [facility] Medical Records Department [address] [place] [address] Operative Report 12/17/24 1019 MR#: [id number] Acct: [id number] Name: EB HUI Rep #: [id number] : 2000 24 From: Nella Ward MD PCP: JEIMY Abrams Status:REG [facility] Location: [address] Operative Report (Standard) Operative Information Date of Procedure: 12/17/24 Pre-Operative Diagnosis: AUB, Endometrial Polyp Post-Operative Diagnosis: same Surgery/Procedure Performed: Hysteroscopy, d C nutrition club ambassador: Yes Distribution Collection Operator: Jono Matamoros MS3 Tasks completed by certified surgical tech/first assistant: Retracting Additional assistant city attorney?: No Type of Anesthesia: MAC RN Documented [...] anesthesia. She was then placed in [facility] where she was prepped and draped in [...] 12/17/24 1021 Cosigner Signature (if applicable): CC: EXTRUSION UTILITY WORKER-C NP. Dove Ungerer; Dr Nella Ward MD Signed Normal [facility] Potassium (Unsp spec) [Mass/ Vol]Ordered By: Jamey Lilly on 12-17-2024 Potassium [Moles/Vol] 3.8 mmol/L 3.3-5.1 [facility] Potassium measurement (mass/ volume)Ordered By: Jamey Lilly on 12-17-2024 Potassium (Unsp spec) [Mass/Vol] 3.8 mmol/L 3.3-5.1 [facility] ,Urineon 12-17-2024 Beta HCG ( test) Ql (U) Negative Normal [facility] Comment on above: Result Comment: Very dilute urine specimens, as indicated by a low specific gravity, may not contain apprenticeship training representative levels of hCG. If is still suspected, a first morning urine specimen should be collected 48 hours later and tested. Performed By: #### L 400.7600 #### [facility] [place], [address] Serum creatinine measurement (mass/volume)Ordered By: Jamey Lilly on 12-17-2024 Creatinine [Mass/Vol] 0.67 mg/dL Low 0.70-1.20 [facility] Serum glucose measurement (m ass/volume)Ordered By: Jamey Lilly on 12-17-2024 Glucose [Mass/Vol] 99 mg/dL 70-99 [facility] Serum or plasma calcium mckinley urement (mass/volume)Ordered By: Jamey Lilly on 12-17-2024 Calcium [Mass/Vol] 8.3 mg/dL 7.6-11.0 [facility] Serum or plasma urea nitroge n measurement (mass/volume)Ordered By: Jamey Lilly on 12-17-2024 Urea nitrogen [Mass/Vol] 10 mg/dL 4-19 [facility] Sodium levelOrdered By: Harshil Lilly on 12-17-2024 Sodium [Moles/Vol] 140 mmol/L 133-145 [facility] Surgery Specimen Level Sana 12-17-2024 Surgery Specimen Level IV Patient Age/Sex Location Account Attending Physician EB HUI [facility] [id number] Dr Nella Ward Specimen: [id number] Received: 12/17/24 Status: WALT Walt Num: [id number] Spec Type: ENDOM BX/C Ericka Dr: Dr Nella Ward MD HEADER OPERATION: [...] x 1.2 cm. Totally submitted in four cassettes. 12/17/2024 [facility]:[id number] Patient Age/Sex Location Account Attending Physician EB HUI [facility] [id number] Dr Nella Ward, Signed (signature on file) Dr. Itzel Matthews MD 12/22/24 1314 Normal [facility] Comment on above: Performed By: #### P SUIV #### [facility] [address] [place], [address] Urine testOrdered By: Nella Ward on 12-17-2024 HCG ( test) Ql (U) Negative [facility] Comment on above: Very dilute urine sp ecimens, as indicated by a low specificgravity, may not contain apprenticeship training representative levels of hCG. If is still suspected, a first morning urinespecimen should be collected 48 hours later and tested. CNOVon 12-16-2024 CNOV Office Visit (OBGYWM ) -- EB UHI ([id number]) 1 F Date Time Provider Department 12/16/24 1:20 PM NELLA JOHN OBGYWM During your visit today, we recorded the [...] 12/19/2020 Oropharyngeal (more content not included)... Normal [facility] H AND P Exam - OB/GYNon 11-22 H&P Exam - CHAINER [facility] Medical Records Department [address] [place] [address] H P Exam - CHAINER 12/16/24 1716 MR#: [id number] Acct: [id number] Name: EB HUI Rep #: [id number] : 2000 24 From: Nella Ward MD PCP: JEIMY Abrams Status[facility] Location: [place] [address] History and Physical Date of Admission: 12/17/24 [...] 12/16/24 1716 Cosigner Signature (if applicable): CC: EXTRUSION UTILITY WORKERMaik Vasquez; Dr Nella Ward MD Signed ADDENDUM by Dr Nella Ward MD on 12/17/24 at 0839 Addendum I have examined the patient and the H P has been reviewed. There are no clinical changes since date of exam. 12/17/24 0839 Cosigner Signature (if applicable): cc: EXTRUSION UTILITY WORKERMaik Vasquez; Dr Nella Ward MD * Signed Normal [facility] HISTORY PHYSICALon HISTORY PHYSICAL HNO ID: [id number] Author: NELLA JOHN MD Service: ? Author [...] history, medications and allergies Nella Hood MD [facility] 10-30-2024 CNPN Telephone (OBGYWM) -- EB HUI ([id number]) 1 F Date Time Provider Department 10/30/24 PETTY RUBALCAVA During your visit today, we recorded the following information about you: Jolanta Day RN 10/30/2024 2:26 PM Signed Patient calling because she saw pelvic u/s results on [employer] and is concerned. Her f/u appt is not until 11/17. Aware SAM back in the office 11/02. PATIENCE Julio Jessica, APRN.CNM 11/02/2024 9:04 AM Signed Please notify patient this is likely a benign lesion but we would like to evaluate. She can have an in office endosee to see if present or we can have a physician complete a hysteroscopy with KALEIGHDE if needed. If she would like sooner follow up with me we can do virtual visit in any slot. ELOISA Marie Jennifer, RN 11/02/2024 10:02 AM Signed Patient notified. [...] Status:Closed by ANGELINA GLORIA on 11/02/24 Normal [facility] 10-29-2024 Indication Abnormal uterine bleeding, [...] Read By: Jeanie Reynolds M.D. MATERNAL MEDICINE [facility] Radiology Study observation (narrative) [facility] EB HUI ([id number]) 1 F Date Time Provider Department 10/27/24 YORDAN SMALLS [facility] During your visit today, we recorded the following information about you: Yordan Smalls APRN.[facility] 10/27/2024 8:41 AM Signed I called [...] Status:Closed by YORDAN SMALLS on 10/27/24 Normal [facility] BACTERIAL VAGINOSIS NAATon 0 10-26-2024 Lactobacillus crispatus+gasseri+je nsenii + Gardnerella vaginalis + Atopobium vaginae rRNA SOL+probe Ql (Vag fld) Not detected Normal Not detected [facility] Comment on above: Order Comment: Speci men Type: SWABOrdering Facility: [facility] Address: [address] [place] [address] Performed By: #### C VTV, BVAMP ####[facility] LABCLIA [id number] [place] [address] [place] Bacteria Ur Culton Bacteria identified Cx Nom (U) ORGANISM ID: 1 10,000 -<50,000 CFU/ml Normal urogenital ziggy Normal [facility] Comment on above: Performed By: #### 6 30-4 ####[facility] LABCLIA [id number] [place] [address] [place] C. trachomatis+N. gonorrhoea e DNA SOL+probe Ql (Unsp spec)on 10-26-2024 C. trachomatis rRNA SOL+probe Ql (Unsp spec) Detected Abnormal Not detected [facility] Comment on above: Order Comment: Speci men Type: SWABOrdering Facility: [facility] Address: [address] [place] [address] Performed By: #### 3 6902-5 ####[facility] LABCLIA [id number] [place] [address] [place] N. gonorrhoeae rRNA SOL+probe Ql (Unsp spec) Not detected Normal Not detected [facility] Comment on above: Order Comment: Speci men Type: SWABOrdering Facility: [facility] Address: [address] [place] [address] Performed By: #### 3 6902-5 ####[facility] LABCLIA [id number] [place] [address] [place] RANCHO/TRICHOMONAS NAATon 0 10-26-2024 C. glabrata RNA SOL+probe Ql (Vag fld) Not detected Normal Not detected [facility] Comment on above: Order Comment: Speci men Type: SWABOrdering Facility: [facility] Address: [address] [place] [address] Performed By: #### C VTV, BVAMP ####[facility] LABCLIA [id number] [place] [address] [place] Rancho sp DNA SOL+probe Ql (Vag fld) Not detected Normal Not detected [facility] Comment on above: Order Comment: Speci men Type: SWABOrdering Facility: [facility] Address: [address] [place] [address] Result Comment: The Rancho species group target includes C. albicans, C. tropicalis, C. parapsilosis, and C. dubliniensis. Performed By: #### C VTV, BVAMP ####[facility] LABCLIA [id number] [place] [address] [place] T. vaginalis DNA SOL+probe Ql (Unsp spec) Not detected Normal Not detected [facility] Comment on above: Order Comment: Speci men Type: SWABOrdering Facility: [facility] Address: [address] [place] [address] Performed By: #### C VTV, BVAMP ####[facility] LABCLIA [id number] [place] [address] [place] CBC W Auto Differential pane l (Bld)on 10-26-2024 Basophils (Bld) [#/Vol] [facility] Basophils/100 WBC (Bld) 0.4 % [facility] Differential cell count method Nom (Bld) Auto [facility] Eosinophils (Bld) [#/Vol] 0.04 10*3/uL [facility] Eosinophils/100 WBC (Bld) 0.8 % [facility] Erythrocyte distribution width (RBC) [Ratio] 12.3 % 11.5 - 15.0 % [facility] Hematocrit (Bld) [Volume fraction] 40.4 % 36.0 - 46.0 % [facility] Hemoglobin (Bld) [Mass/Vol] 13.8 g/dL 11.5 - 15.5 g/dL [facility] Immature granulocytes (Bld) [#/Vol] [facility] Immature granulocytes/100 WBC (Bld) 0.2 % [facility] Lymphocytes (Bld) [#/Vol] 1.87 10*3/uL [facility] Lymphocytes/100 WBC (Bld) 35.4 % [facility] MCH (RBC) [Entitic mass] 30.8 pg 26.0 - 34.0 pg [facility] MCHC (RBC) [Mass/Vol] 34.2 g/dL 30.5 - 36.0 g/dL [facility] MCV (RBC) [Entitic vol] 90.2 fL 80.0 - 100.0 fL [facility] Monocytes (Bld) [#/Vol] 0.44 10*3/uL [facility] Monocytes/100 WBC (Bld) 8.3 % [facility] Neutrophils (Bld) [#/Vol] 2.90 10*3/uL [facility] Neutrophils/100 WBC (Bld) 54.9 % [facility] Nucleated RBC (Bld) [#/Vol] [facility] Nucleated RBC/100 WBC (Bld) [Ratio] 0.0 % /100 WBC [facility] Platelet mean volume (Bld) [Entitic vol] 9.4 fL 9.0 - 12.7 fL [facility] Platelets (Bld) [#/Vol] 211 10*3/uL [facility] RBC (Bld) [#/Vol] 4.48 10*6/uL 3.90 - 5.2 0 m/uL [facility] WBC (Bld) [#/Vol] 5.28 10*3/uL [facility] Basophils (Bld) [#/Vol] 10*3/uL Normal <0.11 [facility] Comment on above: Order Comment: Speci men Type: BLOOD SPECIMENOrdering Facility: [facility] Address: [address] [place] [address] Performed By: #### 5 7021-8 ####[facility] MILLWVTLIA [id number] [place] [address] [place] Basophils/100 WBC (Bld) 0.4 % Normal [facility] Comment on above: Order Comment: Speci men Type: BLOOD SPECIMENOrdering Facility: [facility] Address: [address] [place] [address] Performed By: #### 5 7021-8 ####[facility]STOWNLIA [id number] [place] [address] [place] Differential cell count method Nom (Bld) Auto Normal [facility] Comment on above: Order Comment: Speci men Type: BLOOD SPECIMENOrdering Facility: [facility] Address: [address] [place] [address] Performed By: #### 5 7021-8 ####[facility] MILLHARRISON COUNTY HOSPITALLIA [id number] [place] [address] [place] Eosinophils (Bld) [#/Vol] 0.04 10*3/uL Normal <0.46 [facility] Comment on above: Order Comment: Speci men Type: BLOOD SPECIMENOrdering Facility: [facility] Address: [address] [place] [address] Performed By: #### 5 7021-8 ####[facility]ITAL[facility]CLIA [id number] [place] [address] [place] Eosinophils/100 WBC (Bld) 0.8 % Normal [facility] Comment on above: Order Comment: Speci men Type: BLOOD SPECIMENOrdering Facility: [facility] Address: [address] [place] [address] Performed By: #### 5 7021-8 ####[facility]ITALN[facility] [id number] [place] [address] [place] Erythrocyte distribution width (RBC) [Ratio] 12.3 % Normal 11.5-15.0 [facility] Comment on above: Order Comment: Speci men Type: BLOOD SPECIMENOrdering Facility: [facility] Address: [address] [place] [address] Performed By: #### 5 7021-8 ####[facility]ITALN[facility] [id number] [place] [address] [place] Hematocrit (Bld) [Volume fraction] 40.4 % Normal 36.0-46.0 [facility] Comment on above: Order Comment: Speci men Type: BLOOD SPECIMENOrdering Facility: [facility] Address: [address] [place] [address] Performed By: #### 5 7021-8 ####[facility] [id number] [place] [address] [place] Hemoglobin (Bld) [Mass/Vol] 13.8 g/dL Normal 11.5-15.5 [facility] Comment on above: Order Comment: Speci men Type: BLOOD SPECIMENOrdering Facility: [facility] Address: [address] [place], [place] [address] Performed By: #### 5 7021-8 ####[facility]OWNLI [id number] [place] [address] [place] Immature granulocytes (Bld) [#/Vol] 10*3/uL Normal <0.10 [facility] Comment on above: Order Comment: Speci men Type: BLOOD SPECIMENOrdering Facility: [facility] Address: [address] [place] [address] Performed By: #### 5 7021-8 ####[facility] KIRTTOSHAA [id number] [place] [address] [place] Immature granulocytes/100 WBC (Bld) 0.2 % Normal [facility] Comment on above: Order Comment: Speci men Type: BLOOD SPECIMENOrdering Facility: [facility] Address: [address] [place] [address] Performed By: #### 5 7021-8 ####[facility]ITALN[facility] [id number] [place] [address] [place] Lymphocytes (Bld) [#/Vol] 1.87 10*3/uL Normal 1.00-4.00 [facility] Comment on above: Order Comment: Speci men Type: BLOOD SPECIMENOrdering Facility: [facility] Address: [address] [place] [address] Performed By: #### 5 7021-8 ####[facility] [id number] [place] [address] [place] Lymphocytes/100 WBC (Bld) 35.4 % Normal [facility] Comment on above: Order Comment: Speci men Type: BLOOD SPECIMENOrdering Facility: [facility] Address: [address] [place] [address] Performed By: #### 5 7021-8 ####[facility]STOWNLIA [id number] [place] [address] [place] MCH (RBC) [Entitic mass] 30.8 pg Normal 26.0-34.0 [facility] Comment on above: Order Comment: Speci men Type: BLOOD SPECIMENOrdering Facility: [facility] Address: [address] [place] [address] Performed By: #### 5 7021-8 ####[facility]ITALNCLIA [id number] [place] [address] [place] MCHC (RBC) [Mass/Vol] 34.2 g/dL Normal 30.5-36.0 [facility] Comment on above: Order Comment: Speci men Type: BLOOD SPECIMENOrdering Facility: [facility] Address: [address] [place] [address] Performed By: #### 5 7021-8 ####[facility] [id number] [place] [address] [place] MCV (RBC) [Entitic vol] 90.2 fL Normal 80.0-100.0 [facility] Comment on above: Order Comment: Speci men Type: BLOOD SPECIMENOrdering Facility: [facility] Address: [address] [place] [address] Performed By: #### 5 7021-8 ####[facility] [id number] [place] [address] [place] Monocytes (Bld) [#/Vol] 0.44 10*3/uL Normal <0.87 [facility] Comment on above: Order Comment: Speci men Type: BLOOD SPECIMENOrdering Facility: [facility] Address: [address] [place] [address] Performed By: #### 5 7021-8 ####[facility] [id number] [place] [address] [place] Monocytes/100 WBC (Bld) 8.3 % Normal [facility] Comment on above: Order Comment: Speci men Type: BLOOD SPECIMENOrdering Facility: [facility] Address: [address] [place] [address] Performed By: #### 5 7021-8 ####[facility]ITALNCLIA [id number] [place] [address] [place] Neutrophils (Bld) [#/Vol] 2.90 10*3/uL Normal 1.45-7.50 [facility] Comment on above: Order Comment: Speci men Type: BLOOD SPECIMENOrdering Facility: [facility] Address: [address] [place] [address] Performed By: #### 5 7021-8 ####[facility] [id number] [place] [address] [place] Neutrophils/100 WBC (Bld) 54.9 % Normal [facility] Comment on above: Order Comment: Speci men Type: BLOOD SPECIMENOrdering Facility: [facility] Address: [address] [place] [address] Performed By: #### 5 7021-8 ####[facility] [id number] [place] [address] [place] Nucleated RBC (Bld) [#/Vol] 10*3/uL Normal <0.01 [facility] Comment on above: Order Comment: Speci men Type: BLOOD SPECIMENOrdering Facility: [facility] Address: [address] [place] [address] Performed By: #### 5 7021-8 ####[facility] [id number] [place] [address] [place] Nucleated RBC/100 WBC (Bld) [Ratio] 0.0 /100 WBC Normal [facility] Comment on above: Order Comment: Speci men Type: BLOOD SPECIMENOrdering Facility: [facility] Address: [address] [place] [address] Performed By: #### 5 7021-8 ####[facility] [id number] [place] [address] [place] Platelet mean volume (Bld) [Entitic vol] 9.4 fL Normal 9.0-12.7 [facility] Comment on above: Order Comment: Speci men Type: BLOOD SPECIMENOrdering Facility: [facility] Address: [address] [place] [address] Performed By: #### 5 7021-8 ####[facility] AURELIANONCPHILIPPA [id number] [place] [address] [facility] [place] Platelets (Bld) [#/Vol] 211 10*3/uL Normal 150-400 [facility] Comment on above: Order Comment: Speci men Type: BLOOD SPECIMENOrdering Facility: [facility] Address: [address] [place] [address] Performed By: #### 5 7021-8 ####[facility] KIRTThuanNCLIA [id number] [place] [address] [place] RBC (Bld) [#/Vol] 4.48 10*6/uL Normal 3.90-5.20 [facility] Comment on above: Order Comment: Speci men Type: BLOOD SPECIMENOrdering Facility: [facility] Address: [address] [place] [address] Performed By: #### 5 7021-8 ####[facility] KIRTCLARKS POINTNCLIA [id number] [place] [address] [place] WBC (Bld) [#/Vol] 5.28 10*3/uL Normal 3.70-11.00 [facility] Comment on above: Order Comment: Speci men Type: BLOOD SPECIMENOrdering Facility: [facility] Address: [address] [place] [address] Performed By: #### 5 7021-8 ####[facility] [id number] [address] OF [facility] CNOVon 10-26-2024 CNOV Office Visit (UCWSTR ) -- EB HUI ([id number]) 1 F Date Time Provider Department 10/26/24 2:45 PM YORDAN SMALLS [facility] During your visit today, we recorded the following information about you: Temperature Pulse Respiration Blood pressure 98.2 degrees 60/minute 16/minute 122/72 Weight 71.1 kg Yordan Smalls APRN.BUCKET TURNER 10/26/2024 3:28 PM Signed CC: Patient presents [...] NAAT Self swab Other swabs ordered with collections specialist If anything is positive please treat.. Potential red flag symptoms discussed with the patient. Reviewed appropriate action plan to take if red flag symptoms occur. Patient agreeable to treatment plan. Yordan Smalls APRN.BUCKET TURNER Allergies As of Date: 10/26/2024 (No Known Allergies) Date Reviewed: 10/26/2024 Reviewed by: Gillian Flores MA - Fully Assessed Reason for Visit: Urinary Frequency [1086] Cmt: burning with urination x 4 days Primary Visit Diagnosis:Urinary frequency [R35.0] Other Visit Diagnosis:Unprotected sex [Z72.51] Order(s):UA DIP, URINE (POC) [3016670] Order #: [id number]. #:[id number] 1-LAB BACTERIAL CULTURE, URINE [SQURCUL] Order #: [id number]. #:[id number] GONORRHEA/CHLAMYDIA NAAT [SQGCCT] Order #: [id number]. #:[id number] Prescriptions as of 10/26/2024 - amphetamine-dextroamphetam ine [...] [O14.13] 07/08/2019 (more content not included)... Normal [facility] Office Visit (OBGYWM ) -- EB HUI ([id number]) 1 F Date Time Provider Department 10/26/24 8:15 AM PETTY RUBALCAVA During your visit today, we recorded the following information about you: Blood pressure Weight Height Last Period 112 70.3 kg 1.702 m 01/16/25 Khadar PettyGERMAIN huntleyN.CNM 10/26/2024 12:38 PM Signed Eb is a [...] L1 SAB0 IAB0 Ectopic0 Multiple0 Live Births1 Drum Puller History LMP: 10/08/2024, Having periods Age at Menarche: 12 Age at First : Age at Menopause: Drum Puller History Comments: Sexual Activity: Yes; Male Contraception: [...] discussed with the Patient or Patient's Authorized It Systems Engineer. As applicable, any other physician, advance practice provider, medical student, or other health professional student that will be observing or involved in the sensitive examination for educational or training purposes was discussed with the Patient or Authorized It Systems Engineer. The Patient or Authorized It Systems Engineer has agreed to proceed with the [...] external genitalia normal, normal Bartholin's glands, urethra, Chiawuli Tak's glands, no vulvar lesions, no cervical lesions, [...] up for (more content not included)... Normal [facility] DHEA-S BLDon 10-26-2024 DHEA-S [Mass/Vol] 264.1 ug/dL Normal 148.0-407.0 [facility] Comment on above: Order Comment: Iain soares Type: BLOOD SPECIMENOrdering Facility: [facility] Address: [address] [place] [address] Result Comment: Refe rence ranges are age and gender specific. For additional information, reference range tables can be found in the laboratory test directory. The normal values are based on the following source: Dehydroepiandrosterone sulfate (DHEA S) [package insert V 17.0 Z[place]ian]. [facility], [place], [place]: April 2013. Performed By: #### 2 842-3, DHEAS, 3016-3 ####[facility] LABCLIA [id number] [place] [address] [place] HbA1c (Bld)on 10-26-2024 Average glucose Estimated from glycated hemoglobin (Bld) [Mass/Vol] 94 mg/dL Normal [facility] Comment on above: Order Comment: Melissapippa soares Type: BLOOD SPECIMENOrdering Facility: [facility] Address: [address] [place] [address] Result Comment: eAG: (Estimated average glucose) is a calculated value from HgbA1c and is apprenticeship training representative of the average blood glucose level in the last 2-3 month period. Performed By: #### 5 5454-3 ####[facility] LABIA [id number] [place] [address] [place] HbA1c (Bld) [Mass fraction] 4.9 % Normal 4.3-5.6 [facility] Comment on above: Order Comment: [facility] Type: BLOOD SPECIMENOrdering Facility: [facility] Address: [address] [place] [address] Result Comment: Amer ican Diabetes Association guidelines indicate that patients with HgbA1c in the range 5.7-6.4% are at increased risk for development of diabetes, and intervention by lifestyle modification may be beneficial. HgbA1c greater or equal to 6.5% is considered diagnostic of diabetes. Performed By: #### 5 5454-3 ####[facility] LABCLIA [id number] [address] [address] [place] PAP TESTon 10-26-2024 ADEQUACY Satisfactory for interpretation. Normal [facility] Comment on above: Order Comment: Speci men Type: FLUID SPECIMENOrdering Facility: [facility] Address: [address] [place] [address] Performed By: #### L [id number] ####[facility]ORATORYCLIA [id number] [place] [id number] [facility] LABCLIA [id number] [place] [address] [place] CASE REPORT Normal [facility] Comment on above: Order Comment: Speci men Type: FLUID SPECIMENOrdering Facility: [facility] Address: [address] [place] [address] Result Comment: Gyne cologic Cytology Report Case: [id number] Authorizing Provider: Petty Rubalcava APRN.CNM Collected: 10/26/2024 09:22 AM Ordering Location: OB/Gynecology Received: 10/26/2024 09:40 AM First Screen: Melissa, Jaci, CT, ASCP Specimen: Pap Test, ThinPrep, Cervix Performed By: #### L [id number] ####[facility] LABORATORYCLIA [id number] [place] [id number] [facility] LABCLIA [id number] [place] [address] [place] CLINICAL HISTORY, CYTOLOGY, JOCKEY VALET Routine Exam Normal [facility] Comment on above: Order Comment: Speci men Type: FLUID SPECIMENOrdering Facility: [facility] Address: [address] [place] [address] Performed By: #### L [id number] ####[facility] LABORATORYCLIA [id number] [place] [address] [facility] LABCLIA [id number] [place] [id number] [address] [place] FINAL PERFORMING LAB [facility] Comment on above: Order Comment: Speci men Type: FLUID SPECIMENOrdering Facility: [facility] Address: [address] [place] [address] Result Comment: Tech nical component, liner reroll tender screening performed at [facility], [address] [place] [address] CLIA# [id number] Diagnostic interpretation performed at [facility], [address] [place] [address] CLIA# [id number] Rate Manager: Bethel King M.D. Performed By: #### L [id number] ####[facility] LABORATORYCLIA [id number] [place] [id number] [facility] LABCLIA [id number] [place] [address] [place] INTERPRETATION, CYTOLOGY, JOCKEY VALET Normal [facility] Comment on above: Order Comment: Speci men Type: FLUID SPECIMENOrdering Facility: [facility] Address: [address] [place] [address] Result Comment: Nega tive for intraepithelial lesion or malignancy. Performed By: #### L [id number] ####[facility] LABORATORYCLIA [id number] [place] [id number] [facility] LABCLIA [id number] [place] [id number] [place] LMP 10/08/2024 Normal [facility] Comment on above: Order Comment: Speci men Type: FLUID SPECIMENOrdering Facility: [facility] Address: [address] [place] [address] Performed By: #### L [id number] ####[facility] LABORATORYCLIA [id number] [place] [address] [facility] LABCLIA [id number] [address] [id number] PAP DISCLAIMER COMMENT The Pap Smear is a screening test for cervical cancer. False negative results occur with all screening tests, emphasizing the need for rescreening at recommended intervals, and clinical correlation. Normal [facility] Comment on above: Order Comment: Speci men Type: FLUID SPECIMENOrdering Facility: [facility] Address: [address] [place] [address] Performed By: #### L [id number] ####[facility] LABORATORYCLIA [id number] [address] LABCLIA [id number] [place] [address] [place] PAP GREEN MEAT PACKER COMMENT This specimen has be en analyzed by the ThinPrep Imaging System, an automated imaging and review system, which assists the laboratory in evaluating cells on ThinPrep Pap tests. Following automated imaging, selected hood from every slide are reviewed by a liner reroll tender. Normal [facility] Comment on above: Order Comment: Speci men Type: FLUID SPECIMENOrdering Facility: [facility] Address: [address] [place] [address] Performed By: #### L [id number] ####[facility] LABORATORYCLIA [id number] [place] [address] [facility] LABCLIA [id number] [place] [address] [place] Prolactin SerPl-mCncon 10-26 Prolactin [Mass/Vol] 9.6 ng/mL Normal 4.4-33.8 [facility] Comment on above: Order Comment: Speci men Type: BLOOD SPECIMENOrdering Facility: [facility] Address: [address] [place] [address] Result Comment: Prol actin test is performed using the [facility] Electrochemiluminescence Immunoassay method. Results obtained with different methods or kits cannot be used interchangeably. Performed By: #### 2 842-3, DHEAS, 3016-3 ####[facility] LABCLIA [id number] [address] [place] TESTOSTERONE, FREE AND TOTAL , BY EQUILIBRIUM ULTRAFILTRATION MASS SPECTROMETRYon 10-26-2024 Testosterone [Mass/Vol] 20.9 ng/dL Normal 10.0-55.0 [facility] Comment on above: Order Comment: Speci men Type: BLOOD SPECIMENOrdering Facility: [facility] Address: [address] [place] [address] Performed By: #### T FTEST ####[facility] LABCLIA [id number] [place] [address] Testosterone Free [Mass/Vol] 0.45 ng/dL Normal 0.10-0.85 [facility] Comment on above: Order Comment: Speci men Type: BLOOD SPECIMENOrdering Facility: [facility] Address: [address] [place] [address] Performed By: #### T FTEST ####[facility] LABCLIA [id number] [place] [address] Testosterone Free/Testosterone.to katie [Mass fraction] 2.16 % Normal 0.50-2.80 [facility] Comment on above: Order Comment: Speci men Type: BLOOD SPECIMENOrdering Facility: [facility] Address: [address] [place] [address] Performed By: #### T FTEST ####[facility] LABCLIA [id number] [place] [address] TSH SerPl-aCncon 10-26-2024 TSH Qn 0.651 m[IU]/L Normal 0.270-4.200 [facility] Comment on above: Order Comment: Speci men Type: BLOOD SPECIMENOrdering Facility: [facility] Address: [address] [place] [address] Result Comment: If t he patient is , TSH reference range varies by gestational period: First Trimester (weeks 9-12): 0.180-2.990 mIU/L Second Trimester: 0.110-3.980 mIU/L Third Trimester: 0.480-4.710 mIU/L Yaniv Rivera et al. A Practical Approach for the Verifications and Determination of Site- and Trimester-Specific Reference Intervals for Thyroid Function tests in . Thyroid, 2019:29:3:412-420. Derek E, et al. 2017 Guidelines of the [place] Thyroid Association for the Diagnosis and Management of Thyroid Disease during and the . Thyroid, 2017:27:3:315-389. Performed By: #### 2 842-3, ANGELINA, 3016-3 ####[facility] LABCLIA [id number] [place] [address] [place] UA DIP, URINE (POC)on 2024 BILIRUBIN UA (POCT) Negative Negative [facility] CLARITY UA (POCT) Clear [facility] COLOR UA (POCT) Yellow [facility] GLUCOSE UA (POCT) Negative Negative mg/dL Micky [facility] Hemoglobin Ql (U) Negative Negative [facility] KETONE UA (POCT) Negative Negative mg/dL [facility] LEUKOCYTES UA (POCT) Negative Negative [facility] NITRITE UA (POCT) Negative Negative [facility] PH UA (POCT) 6.0 4.5 - 8.0 [facility] Protein Ql (U) Negative Negative mg/dL [facility] SPECIFIC GRAVITY UA (POCT) 1.025 1.005 - 1.030 [facility] UROBILINOGEN UA (POCT) 0.2 Normal E.U./dL [facility] Location:[address], [place], [place], [id number] [place] [address] POINT OF CARE [facility] CNOVon 08-07-2024 CNOV Office Visit (OBGYWM ) -- EB HUI ([id number]) 1 F Date Time Provider Department 08/07/24 11:20 AM LYNN SMALLS OBBRIAN During your visit today, we recorded [...] L1 SAB0 IAB0 Ectopic0 Multiple0 Live Births1 Drum Puller History LMP: 07/23/2024 (Approximate), Having periods Age at Menarche: Age at First : Age at Menopause: Drum Puller History Comments: Sexual Activity: Yes; Male Contraception: [...] discussed with the Patient or Patient's Authorized It Systems Engineer. As applicable, any other physician, advance practice provider, medical student, or other health professional student that will be observing or involved in the sensitive examination for educational or training purposes was discussed with the Patient or Authorized It Systems Engineer. The Patient or Authorized It Systems Engineer has agreed to proceed with the [...] knee [M23 (more content not included)... 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 Allergies No Known Allergies Allergy (Verified 04/06/24 17:11) PFSH Surgical History History of tonsillectomy and adenoidectomy [...] examination: Status: Acute 07/02/24 1637 Date Michele Cabaignseveriano Signature: Date (if applicable) CC: Normal [facility] UA DIP, URINE (POC)on 2023 BILIRUBIN UA (POCT) Negative Negative [facility] CLARITY UA (POCT) Cloudy [facility] COLOR UA (POCT) Yellow [facility] GLUCOSE UA (POCT) Negative Negative mg/dL [facility] Hemoglobin Ql (U) Trace-intact Abnormal Negative [facility] KETONE UA (POCT) Negative Negative mg/dL [facility] LEUKOCYTES UA (POCT) Moderate Abnormal Negative [facility] NITRITE UA (POCT) Negative Negative [facility] PH UA (POCT) 7.0 4.5 - 8.0 [facility] Protein Ql (U) Negative Negative mg/dL [facility] SPECIFIC GRAVITY UA (POCT) 1.020 1.005 - 1.030 [facility] UROBILINOGEN UA (POCT) 0.2 E.U./dL Normal E.U./dL [facility] STREP A MOLECULAR (POC)on Procedural Control Valid [facility] Strep A (POCT) Negative Negative [facility] XR CHEST 2V FRONTAL/LATon [facility] XR Chest PA and Lateralon IMPRESSION: No acute radiographic abnormality. [employer]: [employer] Transcribe Date/Time: Jul 16 2023 8:01P Dictated by : MAURICIO BUTTS MD This examination was interpreted and the report reviewed and electronically signed by: MAURICIO BUTTS MD on Jul 16 2023 8:02PM [facility] DIVISION OF RADIOLOGY * * *Final Report* [...] thorax appear intact. DIVISION OF RADIOLOGY Provider, Ramez carranza [place] - 07/16/2023 * * *Final Report* * [...] intact. IMPRESSION IMPRESSION: No acute radiographic abnormality. [employer]: [employer] Transcribe Date/Time: Jul 16 2023 8:01P Dictated by : MAURICIO BUTTS MD This examination was interpreted and the report reviewed and electronically signed by: MAURICIO BUTTS MD on Jul 16 2023 8:02PM EST [facility] Radiology Study observation (narrative) [facility] XR Chest PA and LateralOrder ed By: [facility] Provider on 07-16-2023 [facility] Absolute lymphocyte countOrd ered By: Christian Callahan on 06-12-2023 Lymphocytes Auto (Unsp spec) [#/Vol] 3.16 10*3/uL 0.83-4.51 [facility] Basophil percentageOrdered B y: Christian Callahan on 06-12-2023 Basophils/100 WBC (Bld) 0.2 % 0-1 [facility] Chloride [Moles/Vol] 107 mmol/L 98-[address] [facility] [address] [facility] Eosinophils/100 WBC (Bld) 0.2 % 0-5 [facility] Glucose [Mass/Vol] 93 mg/dL 74-106 [facility] Neutrophils (Bld) [#/Vol] 4.6 10*3/uL 2.0-7.7 [facility] Neutrophils/100 WBC (Bld) 53.4 % 47-70 [facility] Potassium [Moles/Vol] 3.6 mmol/L 3.5-5.1 [facility] Sodium [Moles/Vol] 138 mmol/L 136-145 [facility] WBC (Bld) [#/Vol] 8.7 10*3/uL 4.4-11.0 [facility] Blood erythrocytes count (nu mber/volume)Ordered By: Christian Callahan on 06-12-2023 RBC (Bld) [#/Vol] 4.87 10*6/uL 4.2-5.4 [facility] Blood hemoglobin measurement (mass/volume)Ordered By: Christian Callahan on 06-12-2023 Hemoglobin (Bld) [Mass/Vol] 14.7 g/dL 12.0-15.0 [facility] Blood lymphocytes/100 leukoc ytesOrdered By: Christian Callahan on 06-12-2023 Lymphocytes/100 WBC (Bld) 36.3 % 19-41 [facility] Blood monocytes/100 leukocyt esOrdered By: Christian Callahan on 06-12-2023 Monocytes/100 WBC (Bld) 9.7 % 0-10 [facility] Blood platelet mean volumeOr dered By: Christian Callahan on 06-12-2023 Platelet mean volume (Bld) [Entitic vol] 9.6 fL 6.2-12.0 [facility] Determination of erythrocyte mean corpuscular volume (MCV)Ordered By: Christian Callahan on 06-12-2023 MCV (RBC) [Entitic vol] 92.0 fL 81-99 [facility] Hematocrit Auto (Bld) [Volum e fraction]Ordered By: Christian Callahan on 06-12-2023 Hematocrit (Bld) [Volume fraction] 44.8 % 37-47 [facility] Laboratory - Chemistry and C hemistry - challengeOrdered By: Christian Callahan on 06-12-2023 CO2 [Moles/Vol] 26.0 mmol/L 21.0-32.0 [facility] Urea nitrogen/Creatinine [Mass ratio] 10.3 mg/mg 10-20 [facility] Laboratory - Hematology and Cell countsOrdered By: Christian Callahan on 06-12-2023 Erythrocyte distribution width (RBC) [Entitic vol] 43.3 fL 35.1-43.9 [facility] Erythrocyte distribution width (RBC) [Ratio] 12.8 % 11.6-14.6 [facility] Immature granulocytes/100 WBC (Bld) 0.200 % 0.0-0.9 [facility] Comment on above: IG% - Immature Granu locytes (promyelocytes, myelocytes and metamyelocytes) > 1% indicates that a LEFT SHIFT is Present. MCH (RBC) [Entitic mass] 30.2 pg 27.0-32.0 [facility] Nucleated RBC/100 WBC (Bld) [Ratio] 0 % 0-5 [facility] MCHC Auto (RBC) [Mass/Vol]Or dered By: Christian Callahan on 06-12-2023 MCHC (RBC) [Mass/Vol] 32.8 g/dL 32-36 [facility] No Panel InformationOrdered By: Christian Callahan on 06-12-2023 D-Dimer Quantitative (PE/DVT) 0.59 FEU/ug/m 0.27-0.49 [facility] Comment on above: D-Dimer ELEVATED (>0 .49): Additional studies and clinicalassessments are indicated to conclude diagnosis of:Deep Vein Thrombosis (DVT) or Pulmonary Embolism (PE)RESULTS CALLED TO KRYSTAL LÓPEZ RN 06/12/23 0755 Lynn Womack.REPORT READ BACK BY SAME Estimated Creatinine Clearance Calc 83.58 ml/min [facility] Estimated GFR (MDRD) Amer 91 mL/min >60 [facility] Comment on above: GFR Calc Estimated GFR (MDRD) Non-Af Amer 75 mL/min >60 [facility] Comment on above: Non- GFR Calc Troponin I High Sensitivity < 3 pg/mL 3.0-54.0 [facility] Comment on above: Please Note: New Amy t Units and Gender Specific Reference Ranges. For more information see Policy Stat Procedure [place] High Sensitivity Troponin (TNIH) and attachments. Platelets bldOrdered By: Malena Callahan on 06-12-2023 Platelets (Bld) [#/Vol] 286 10*3/uL 150-450 [facility] Serum or plasma calcium mckinley urement (mass/volume)Ordered By: Christian Callahan on 06-12-2023 Calcium [Mass/Vol] 8.5 mg/dL 8.5-10.1 [facility] Serum or plasma creatinine m easurement (mass/volume)Ordered By: Christian Callahan on 06-12-2023 Creatinine [Mass/Vol] 0.98 mg/dL 0.55-1.02 [facility] Comment on above: The validity of the calculated GFR & GFRAA in patients over 70 years has not been determined. Clinical correlation is essential. Serum or plasma urea nitroge n measurement (mass/volume)Ordered By: Christian Callahan on 06-12-2023 Urea nitrogen [Mass/Vol] 10 mg/dL 7-18 [facility] Thin prep Papanicolaou smear with manual screeningOrdered By: [facility] Callahan on 06-12-2023 Thin prep Papanicolaou smear with manual screening 5 -15 [facility] BACTERIAL VAGINOSIS NAATon 0 04-24-2023 Lactobacillus crispatus+gasseri+je nsenii + Gardnerella vaginalis + Atopobium vaginae rRNA SOL+probe Ql (Vag fld) Positive Abnormal Negative for bacterial vaginosis [facility] RANCHO/TRICHOMONAS NAATon 0 04-24-2023 C. glabrata RNA SOL+probe Ql (Vag fld) Negative Negative for Rancho glabrata [facility] Rancho sp DNA SOL+probe Ql (Vag fld) Negative Negative for Rancho species [facility] T. vaginalis DNA SOL+probe Ql (Unsp spec) Negative Negative for Trichomonas vaginalis by amplification [facility] HCG QUAL UR B/Oon 02-21-2023 status Negative neg - pos [facility] Quality Check Yes [facility] UA DIP, URINE (POC)on 2022 BILIRUBIN UA (POCT) Small Abnormal Negative [facility] CLARITY UA (POCT) Slightly Cloudy Cl [facility] COLOR UA (POCT) Other [facility] GLUCOSE UA (POCT) Negative Negative mg/dL [facility] HEMOGLOBIN/BLOOD UA (POCT) Small Abnormal Negative [facility] KETONE UA (POCT) Trace Negative mg/dL [facility] LEUKOCYTES UA (POCT) Small Abnormal Negative [facility] NITRITE UA (POCT) Negative Negative [facility] PH UA (POCT) 5.0 4.5 - 8.0 [facility] Protein Ql (U) Negative Negative mg/dL [facility] SPECIFIC GRAVITY UA (POCT) 1.025 1.005 - 1.030 [facility] UROBILINOGEN UA (POCT) 0.2 E.U./dL Normal E.U./dL [facility] HISTORY PHYSICALon HISTORY PHYSICAL HNO ID: [id number] Author: Junior Bella PA-C Service: ? Author Type: Physician [employer] Type: HANDP Filed: 01/03/2023 12:40 PM Note [...] manage symptoms. Procedure scheduled on 01/04/2023 at [facility]. REVIEW OF SYSTEMS: General: No weight loss, malaise or fevers. Neurological: No history of TIA's, stroke, CHICKEN TENDER tumor, impaired sensorium, hemiplegia, paraplegia or quadraplegia. No neurological symptoms or problems. Respiratory: Positive for: tobacco use (smokes 1 ppd x last 4 years). Negative for: asthma, COPD, current cough, dyspnea, URI < 2 weeks and obstructive sleep apnea. Cardiovascular: No history of HTN requiring medication, no history of angina, CHF, MS, cardiac surgery or stents. Denies rest pain, [...] frequent urination, nephrolithiasis, renal failure and urgency. JOCKEY VALET: LMP 12/31/22 Endocrine: No history of diabetes. [...] EOM i (more content not included)... Normal [facility] GC/Chlamydia Amp, Uron 07-06 Chlamydia Amplif, Ur Normal [facility] Comment on above: Result Comment: Nega tive for For screening asymptomatic women, a vaginal swab specimen (APTIMA vaginal swab 841886) is optimal. Urine specimens have reduced sensitivity for Chlamydia trachomatis or Neisseria gonorrhoeae infection in female patients without symptoms. This test was developed and its performance characteristics determined by [facility] [place] ([facility]). It has not been cleared or approved by the FDA. [facility] is regulated under CLIA as qualified to perform high complexity testing. This test is used for clinical purposes. It should not be regarded as investigational or for research. Chlamydia For screening asymptomatic women, a vaginal swab specimen (APTIMA vaginal swab 478305) is optimal. Urine specimens have reduced sensitivity for Chlamydia trachomatis or Neisseria gonorrhoeae infection in female patients without symptoms. This test was developed and its performance characteristics determined by [facility] [place] ([facility]). It has not been cleared or approved by the FDA. [facility] is regulated under CLIA as qualified to perform high complexity testing. This test is used for clinical purposes. It should not be regarded as investigational or for research. trachomatis by For screening asymptomatic women, a vaginal swab specimen (APTIMA vaginal swab 524166) is optimal. Urine specimens have reduced sensitivity for Chlamydia trachomatis or Neisseria gonorrhoeae infection in female patients without symptoms. This test was developed and its performance characteristics determined by [facility] [place] ([facility]). It has not been cleared or approved by the FDA. [facility] is regulated under CLIA as qualified to perform high complexity testing. This test is used for clinical purposes. It should not be regarded as investigational or for research. amplification. For screening asymptomatic women, a vaginal swab specimen (APTIMA vaginal swab 046377) is optimal. Urine specimens have reduced sensitivity for Chlamydia trachomatis or Neisseria gonorrhoeae infection in female patients without symptoms. This test was developed and its performance characteristics determined by [facility] [place] ([facility]). It has not been cleared or approved by the FDA. [facility] is regulated under CLIA as qualified to perform high complexity testing. This test is used for clinical purposes. It should not be regarded as investigational or for research. Performed By: #### U GCCT #### [facility]ine Lab [address], [place] [id number] GC Amplification, Ur NGNEG Normal [facility] Comment on above: Performed By: #### U GCCT #### [facility] [address], [place] [id number] XR Chest PA and Lateralon IMPRESSION: No acute radiographic abnormality. [employer]: PSCB Transcribe Date/Time: Jan 10 2021 2:42P Dictated by : CLARK VILLAR MD This examination was interpreted and the report reviewed and electronically signed by: CLARK VILLAR MD on Jan 10 2021 2:44PM [facility] DIVISION OF RADIOLOGY * * *Final Report* [...] soft tissues: Unremarkable. DIVISION OF RADIOLOGY Provider, [facility] - 01/10/2021 * * *Final Report* [...] Unremarkable. IMPRESSION IMPRESSION: No acute radiographic abnormality. [employer]: OLGA Transcribe Date/Time: Jan 10 2021 2:42P Dictated by : CLARK VILLAR MD This examination was interpreted and the report reviewed and electronically signed by: CLARK VILLAR MD on Jan 10 2021 2:44PM EST [facility] Radiology Study observation (narrative) [facility] XR Chest PA and LateralOrder ed By: [facility] Provider on 01-10-2021 [facility] Basic Metabolic Panelon 11-21 Anion gap [Moles/Vol] 9 mmol/L Normal 3-13 [facility] Comment on above: Performed By: #### E SR, CRP2, PCAL, PT, BMP3, HEMDF, TSH5 #### [address] [place], [place] Calcium [Mass/Vol] 9.1 mg/dL Normal 8.4-10.4 [facility] Comment on above: Performed By: #### E SR, CRP2, PCAL, PT, BMP3, HEMDF, TSH5 #### [facility] [address] [place] [address] CO2 [Moles/Vol] 22 mmol/L Normal 22-30 [facility] Comment on above: Performed By: #### E SR, CRP2, PCAL, PT, BMP3, HEMDF, TSH5 #### [facility] [address] [place], [place] Glucose [Mass/Vol] 128 mg/dL High 70-100 [facility] Comment on above: Performed By: #### E SR, CRP2, PCAL, PT, BMP3, HEMDF, TSH5 #### [address] Urea nitrogen [Mass/Vol] 7 mg/dL Normal 7-20 [facility] Comment on above: Performed By: #### E SR, CRP2, PCAL, PT, BMP3, HEMDF, TSH5 #### [address] [place], [place] Creatinine [Mass/Vol] 0.57 mg/dL Normal 0.52-1.25 [facility] Comment on above: Performed By: #### E SR, CRP2, PCAL, PT, BMP3, HEMDF, TSH5 #### [address], [place] GFR/1.73 sq M predicted among blacks MDRD (S/P/Bld) [Vol rate/Area] mL/min/{1.73_m2} Normal >60 [facility] Comment on above: Performed By: #### E SR, CRP2, PCAL, PT, BMP3, HEMDF, TSH5 #### [address] GFR/1.73 sq M predicted among non-blacks MDRD (S/P/Bld) [Vol rate/Area] mL/min/{1.73_m2} Normal >60 [facility] Comment on above: Result Comment: KDIG O [...] CRP2, PCAL, PT, BMP3, HEMDF, TSH5 #### [facility] [address] [place] [address] Potassium [Moles/Vol] 4.0 mmol/L Normal 3.5-5.1 [facility] Comment on above: Performed By: #### E SR, CRP2, PCAL, PT, BMP3, HEMDF, TSH5 #### [address] [place] [address] Sodium [Moles/Vol] 138 mmol/L Normal 135-145 [facility] Comment on above: Performed By: #### E SR, CRP2, PCAL, PT, BMP3, HEMDF, TSH5 #### [address] [place] [address] Chloride [Moles/Vol] 108 mmol/L High 98-[address] [facility] Comment on above: Performed By: #### E SR, CRP2, PCAL, PT, BMP3, HEMDF, TSH5 #### [address] [place] [address] Anion gap [Moles/Vol] 9 mmol/L 3 - 13 mmol/L [facility] Work Phone: Calcium [Mass/Vol] 9.1 mg/dL 8.4 - 10. 4 mg/dL [facility] Work Phone: Chloride [Moles/Vol] 108 mmol/L High 98 - 10 7 mmol/L [facility] Work Phone: CO2 [Moles/Vol] 22 mmol/L 22 - 30 mmol/L [facility] Work Phone: Creatinine [Mass/Vol] 0.57 mg/dL 0.52 - 1.25 mg/dL [facility] Work Phone: EGFR IF NonAfrican Belizean >90.0 >60 mL/min [facility] Work Phone: Comment on above: KDIGO guidelines [...] MDRD (S/P/Bld) [Vol rate/Area] mL/min/{1.73_m2} >60 mL/min [facility] Work Phone: Glucose [Mass/Vol] 128 mg/dL High 70 - 100 mg/dL [facility] Work Phone: Interpretation and review of laboratory results Abnormal [facility] Work Phone: Potassium [Moles/Vol] 4.0 mmol/L 3.5 - 5.1 mmol/L [facility] Work Phone: Sodium [Moles/Vol] 138 mmol/L 135 - 145 mmol/L [facility] Work Phone: Urea nitrogen [Mass/Vol] 7 mg/dL 7 - 20 mg/dL [facility] Work Phone: C-Reactive Proteinon 021 CRP [Mass/Vol] 9.1 mg/L High 0.0-6.[address] [facility] Comment on above: Result Comment: . Performed By: #### E SR, CRP2, PCAL, PT, BMP3, HEMDF, TSH5 #### [address] [place] [address] CRP [Mass/Vol] 9.1 mg/L High 0.0 - 6.0 mg/L [facility] Work Phone: Comment on above: . Interpretation and review of laboratory results Abnormal [employer] Work Phone: [phone] Test Performed by [address] [address] [facility] Work Phone: [phone] CBC Auto Differentialon - Absolute Baso # 0.0 10*3/uL 0.0 - 0.2 10*3/uL [facility] Work Phone: [phone] Absolute Neut # 13.4 10*3/uL High 1.8 - 7.0 10*3/uL [facility] Work Phone: [phone] Basophils/100 WBC (Bld) 0.2 % 0.0 - 2.0 % [facility] Work Phone: [phone] Eosinophils (Bld) [#/Vol] 0.0 10*3/uL 0.0 - 0.5 10*3/uL [facility] Work Phone: [phone] Eosinophils/100 WBC (Bld) 0.0 % Low 1.0 - 6.0 % [facility] Work Phone: [phone] Erythrocyte distribution width (RBC) [Ratio] 13.8 % 11.5 - 14.5 % [facility] Work Phone: [phone] Granulocytes/100 WBC (Bld) 91.5 % High 40.0 - 80.0 % [facility] Work Phone: [phone] Hematocrit (Bld) [Volume fraction] 37.9 % 35.0 - 47.0 % [facility] Work Phone: [phone] Hemoglobin (Bld) [Mass/Vol] 12.9 g/dL 11.7 - 16.0 g/dL [facility] Work Phone: [phone] Interpretation and review of laboratory results Abnormal [facility] Work Phone: [phone] Lymphocytes (Bld) [#/Vol] 1.1 10*3/uL 1.0 - 4.3 10*3/uL [facility] Work Phone: [phone] Lymphocytes/100 WBC (Bld) 7.7 % Low 20.0 - 40.0 % [facility] Work Phone: [phone] MCH (RBC) [Entitic mass] 29.6 pg 26.0 - 34.0 pg [employer] Work Phone: MCHC (RBC) [Mass/Vol] 34.0 % 32.0 - 36.0 % [employer] [employer] Work Phone: MCV (RBC) [Entitic vol] 86.9 fL 79.0 - 98.0 fL [employer] Work Phone: Monocytes (Bld) [#/Vol] 0.1 10*3/uL 0.0 - 0.8 10*3/uL [employer] Work Phone: Monocytes/100 WBC (Bld) 0.6 % Low 2.0 - 10.0 % [employer] [employer] Work Phone: Platelet mean volume (Bld) [Entitic vol] 7.9 fL 7.4 - 10.4 fL [employer] Work Phone: Platelets (Bld) [#/Vol] 303 10*3/uL 140 - 440 10*3/uL [employer] Work Phone: RBC (Bld) [#/Vol] 4.37 10*6/uL 3.80 - 5.2 0 10*6/uL [employer] Work Phone: WBC (Bld) [#/Vol] 14.7 10*3/uL High 3.6 - 10.7 10*3/uL [employer] Work Phone: Test Performed by [facility], [address] [place] [address] [facility] Work Phone: EKG 12 Leadon 12-06-2020 [facility] [employer] Test Date: 2020-12-06 Pat Name: Eb Hui Department: 1A5N Room: 1557 Gender: F Lithographic Plate Maker: KOURTNEY : 2000 Requested By: SABINO ORTEGA Order Number: [id number] Reading MD: Ba Cordon Measurements Intervals [place] Rate: 60 P: -12 WV: 152 QRS: 0 QRSD: 89 T: 58 QT: 410 QTc: 410 Interpretive Statements Sinus rhythm Borderline T wave abnormalities Electronically Signed On 12-06-2020 10:01:11 EDT by Ba PELAYO Work Phone: Rod, [facility] Incoming Cardiology [facility] 12/06/2020 10:02 AM EDT [facility] Test Date: 2020-12-06 Pat Name: Eb Hui Department: 1A5N Room: [facility] Gender: F Lithographic Plate Maker: KOURTNEY : 2000 Requested By: SABINO ORTEGA Order Number: [id number] Reading MD: Ba Cordon Measurements Intervals [place] Rate: 60 P: -12 WV: 152 QRS: 0 QRSD: 89 T: 58 QT: 410 QTc: 410 Interpretive Statements Sinus rhythm Borderline T wave abnormalities Electronically Signed On 12-06-2020 10:01:11 EDT by Ba PELAYO Work Phone: Hemogram w/ Autodiffon 12-06 Abs Baso Cnt 0.0 10*3/uL Normal 0.0-0.2 [facility] Comment on above: Performed By: #### E SR, CRP2, PCAL, PT, BMP3, HEMDF, TSH5 #### [address] [address] Abs Neutrophile Cnt 13.4 10*3/uL High 1.8-7.0 [facility] Comment on above: Performed By: #### E SR, CRP2, PCAL, PT, BMP3, HEMDF, TSH5 #### [address] [address] Basophils/100 WBC (Bld) 0.2 % Normal 0.0-2.0 [facility] Comment on above: Performed By: #### E SR, CRP2, PCAL, PT, BMP3, HEMDF, TSH5 #### [address] [address] Eosinophils (Bld) [#/Vol] 0.0 10*3/uL Normal 0.0-0.5 [facility] Comment on above: Performed By: #### E SR, CRP2, PCAL, PT, BMP3, HEMDF, TSH5 #### [address] Eosinophils/100 WBC (Bld) 0.0 % Low 1.0-6.0 [facility] Comment on above: Performed By: #### E SR, CRP2, PCAL, PT, BMP3, HEMDF, TSH5 #### [address] Erythrocyte distribution width (RBC) [Ratio] 13.8 % Normal 11.5-14.5 [facility] Comment on above: Performed By: #### E SR, CRP2, PCAL, PT, BMP3, HEMDF, TSH5 #### [address] Granulocytes/100 WBC (Bld) 91.5 % High 40.0-80.0 [facility] Comment on above: Performed By: #### E SR, CRP2, PCAL, PT, BMP3, HEMDF, TSH5 #### [address] Hematocrit (Bld) [Volume fraction] 37.9 % Normal 35.0-47.0 [facility] Comment on above: Performed By: #### E SR, CRP2, PCAL, PT, BMP3, HEMDF, TSH5 #### [address] Hemoglobin (Bld) [Mass/Vol] 12.9 g/dL Normal 11.7-16.0 [facility] Comment on above: Performed By: #### E SR, CRP2, PCAL, PT, BMP3, HEMDF, TSH5 #### [address] Lymphocytes (Bld) [#/Vol] 1.1 10*3/uL Normal 1.0-4.3 [facility] Comment on above: Performed By: #### E SR, CRP2, PCAL, PT, BMP3, HEMDF, TSH5 #### [address] Lymphocytes/100 WBC (Bld) 7.7 % Low 20.0-40.0 [facility] Comment on above: Performed By: #### E SR, CRP2, PCAL, PT, BMP3, HEMDF, TSH5 #### [address] MCH (RBC) [Entitic mass] 29.6 pg Normal 26.0-34.0 [facility] Comment on above: Performed By: #### E SR, CRP2, PCAL, PT, BMP3, HEMDF, TSH5 #### [address] MCHC (RBC) [Mass/Vol] 34.0 % Normal 32.0-36.0 [facility] Comment on above: Performed By: #### E SR, CRP2, PCAL, PT, BMP3, HEMDF, TSH5 #### [address] MCV (RBC) [Entitic vol] 86.9 fL Normal 79.0-98.0 [facility] Comment on above: Performed By: #### E SR, CRP2, PCAL, PT, BMP3, HEMDF, TSH5 #### [address] Monocytes (Bld) [#/Vol] 0.1 10*3/uL Normal 0.0-0.8 [facility] Comment on above: Performed By: #### E SR, CRP2, PCAL, PT, BMP3, HEMDF, TSH5 #### [address] Monocytes/100 WBC (Bld) 0.6 % Low 2.0-10.0 [facility] Comment on above: Performed By: #### E SR, CRP2, PCAL, PT, BMP3, HEMDF, TSH5 #### [address] Platelet mean volume (Bld) [Entitic vol] 7.9 fL Normal 7.4-10.4 [facility] Comment on above: Performed By: #### E SR, CRP2, PCAL, PT, BMP3, HEMDF, TSH5 #### [address] [address] Platelets (Bld) [#/Vol] 303 10*3/uL Normal 140-440 [facility] Comment on above: Performed By: #### E SR, CRP2, PCAL, PT, BMP3, HEMDF, TSH5 #### [address] RBC (Bld) [#/Vol] 4.37 10*6/uL Normal 3.80-5.20 [facility] Comment on above: Performed By: #### E SR, CRP2, PCAL, PT, BMP3, HEMDF, TSH5 #### [address] WBC (Bld) [#/Vol] 14.7 10*3/uL High 3.6-10.7 [facility] Comment on above: Performed By: #### E SR, CRP2, PCAL, PT, BMP3, HEMDF, TSH5 #### [address] Otheron 12-06-2020 Test Performed by [facility], [address] [place] [id number] [place] [address] Work Phone: Procalcitoninon 12-06-2020 Procalcitonin < 0.10 Normal <0.10 [facility] Comment on above: Performed By: #### E SR, CRP2, PCAL, PT, BMP3, HEMDF, TSH5 #### [address] Procalcitonin <0.10 <0.10 ng/mL [facility] Work Phone: Sodium [Moles/Vol] See Below [facility] Work Phone: Comment on above: PCT <0.50 = Low risk of severe sepsis and/or septic shock. PCT >2.00 = High risk of severe sepsis and/or septic shock. Test Performed by [facility], [address] [place] [address] [facility] Work Phone: Interpretation See Below Normal [facility] Comment on above: Result Comment: PCT <0.50 = Low risk of severe sepsis and/or septic shock. PCT >2.00 = High risk of severe sepsis and/or septic shock. Performed By: #### E SR, CRP2, PCAL, PT, BMP3, HEMDF, TSH5 #### [address] [address] Prothrombin Timeon INR Coag (PPP) [Relative time] 1.0 Normal 0.9-1.1 [facility] Comment on above: Result Comment: Logan mmended [...] CRP2, PCAL, PT, BMP3, HEMDF, TSH5 #### [address] [address] PT Coag (PPP) [Time] 11.3 s Normal 9.0-12.[address] [facility] Comment on above: Result Comment: . Performed By: #### E SR, CRP2, PCAL, PT, BMP3, HEMDF, TSH5 #### [facility] [address] [place] [address] Protime-INRon 12-06-2020 INR Coag (PPP) [Relative time] 1.0 {INR} [facility] Work Phone: Comment on above: Recommended [...] [Time] 11.3 s 9.0 - 12.0 s [employer] Work Phone: Comment on above: . Test Performed by [employer], [address] [place] [address] [employer] Work Phone: Sed Rateon 12-06-2020 Sed Rate 12 mm/h Normal 0-[address] [facility] Comment on above: Performed By: #### E SR, CRP2, PCAL, PT, BMP3, HEMDF, TSH5 #### [address] [place] [address] Sedimentation Rateon 021 Sed Rate 12 mm/h 0 - 20 mm/h [employer] Work Phone: TSH without Reflexon 021 Interpretation and review of laboratory results Abnormal [employer] Work Phone: TSH Qn 0.192 u[IU]/mL Low 0.465 - 4.680 u[IU]/mL [employer] Work Phone: Test Performed by [employer], [address] [place] [address] [employer] Work Phone: Thyroid Stim. Hormoneon 11-21 Thyroid Stim. Hormone 0.192 u[IU]/mL Low 0.465-4.[address] [facility] Comment on above: Performed By: #### E SR, CRP2, PCAL, PT, BMP3, HEMDF, TSH5 #### [address] [place] [phone] PROGRESSon 07-11-2019 PROGRESS HNO ID: [id number] Author: Rodo Hope Service: Obstetrics Author Type: [...] Pneumonia - Continue Azithromycin and Amoxicillin (Day 4/) 5. Teen - Care management on consult [...] today F/u this week in office in [place] for BP check [facility] STAFF PHYSICIAN NOTE OF PERSONAL [...] this patient SIGNATURE: Rodo Hope MD PAGER: [phone] DATE of SERVICE: July 11, 2019 TIME of SERVICE: 10:16 AM Rodo Hoep MD [facility] ANES Philip 07-10-2019 ANES POST HNO ID: [id number] Author: Leif Zelaya Service: Anesthesiology Author Type: Nurse Industrial Production Manager Type: Anesthesia PostOp Filed: 07/10/2019 7:52 AM Note Text: POST ANESTHESIA EVALUATION NOTE SERVICE DATE: 07/10/2019 SERVICE TIME: 751 : 2000 Vitals: 07/09/19199907/09/19233907/10/1932407/10/19719 Temp: 36.6 ?C (97.9 ?F) 36.8 ?C (98.2 ?F) 36.8 ?C (98.2 ?F) 36.5 ?C (97.7 ?F) 07/09/19199907/09/19233907/10/1932407/10/19719 BP: 136/95 138/103 132/94 135/99 07/09/19199907/09/19233907/10/1932407/10/19719 Pulse: 80 70 79 65 07/09/19199907/09/19233907/10/1932407/10/19719 Resp: 18 18 18 18 07/09/19199907/09/19 2340 07/10/19 0325 07/10/19 0720 SpO2: 98% 96% 98% 95% Validated Vital [...] 2019 TIME: 7:51 AM PAGER/CONTACT #: Marisol [facility] PROGRESSon 07-10-2019 PROGRESS HNO ID: [id number] Author: George Nguyễn Jr. Service: ? Author [...] July 10, 2019 TIME: 10:[address] [facility] PROGRESS HNO ID: [id number] Author: Nancy Gonzales Service: Obstetrics Author Type: [...] DATE: July 10, 2019 TIME: 6:29 AM [facility] ANES INTRAOPon 07-09-2019 ANES INTRAOP HNO ID: [id number] Author: Tay Leung Service: Anesthesiology Author Type: Nurse Industrial Production Manager Type: Anesthesia IntraOp Filed: 07/09/2019 8:24 PM Note Text: ANALGESIA PROGRESS RECORD CATHETER REMOVAL/END OF CASE SERVICE DATE: 07/09/2019 REMOVAL DATE AND TIME: 07/09/2019 at 0835 DELIVERY DATE AND TIME: 07/09/2019 at 8:03 AM CATHETER REMOVAL: Catheter Removal: Epidural removed by Labor and molded rubber goods cutter. Please see nursing notes. SIGNATURE: Tay Leung APRN.CRNA PATIENT NAME: Eb Hui DATE: July 09, 2019 TIME: 8:24 PM PAGER/CONTACT #: [facility] ANES INTRAOP HNO ID: [id number] Author: Marcos Mayes Service: Anesthesiology Author Type: Nurse Industrial Production Manager Type: Anesthesia IntraOp Filed: 07/09/2019 6:57 AM [...] to stay on left side d/t tracing. Normal [facility] CASE MANAGEMon 07-09-2019 CASE MANAGEM HNO ID: [id number] Author: TRINA Gu (Lisw) Service: Social Work Author Type: Steamboat Captain Type: Care Mgt Progress Note Filed: 07/09/2019 [...] working.She has script coverage and pharmacies at [facility] in [place]. Patient states she needs to find a butcher all round yet. She denies any concerns for homegoing.Has history of depression and anxiety. Currently not in any counseling and was prescribed antidepressants in past but didn't like how they made her feel and this was way before .Discussed symptoms of depression in light of post depression and patient agrees she will call her PCP if this occurs. Patient is already active with WIC and she has ordered a car seat to be delivered soon.Baby currently in [facility] so does not need stat.Patient is prepared for baby with clothing carseat etc. SIGNATURE: TRINA Gu PATIENT NAME: Eb Hui DATE: July 09, 2019 TIME: 4:23 PM PAGER/CONTACT #: [phone] [facility] LD NOTEon 07-09-2019 LD NOTE HNO ID: [id number] Author: Nancy Gonzales Service: Obstetrics Author Type: Resident Type: LANDD Delivery Note Filed: 07/09/2019 8:37 AM Note Text: -- Attestation signed by Nathalie Alas at 07/09/2019 9:09 AM I was present for the entire procedure and agree with above Nathalie Alas MD -- OBSTETRICS DELIVERY SUMMARY - VAGINAL DELIVERY Gestational Age at Delivery: 33w1d Service Date: 07/09/2019 Service Time: 8:32 AM Yousuf Hui [[id number]] Labor Events Rupture Date: 07/09/19 Rupture Time: [...] Minute : 6 Five Minute : 8 Medardo Ledezma Called: Yes Type of Medardo Ledezma Team Needed: Planned Resuscitation Needed: Yes, see Resuscitation Record Clinical Course: ? Eb Hui is a 19 year old year old G1now P0101 female who [facility] with Estimated Date of Delivery: 08/26/19 at [...] difficulty followed by the remainder of the infant's body. The was crying spontaneously. Delayed cord clamping was [...] July 09, 2019 TIME: 8:[address] [facility] NURSING PROGon 07-09-2019 NURSING PROG HNO ID: [id number] Author: Kristy Guerrero) PATIENCE Marie Service: Nursing Author Type: Registered Nurse Type: Nursing Progress Note Filed: 07/09/2019 10:44 AM Note Text: Patient anterior lip per Dr. Alas Patient transferred to OR 2 for delivery, see delivery summary. [facility] PROCEDUREon 07-09-2019 PROCEDURE HNO ID: [id number] Author: Marcos Mayes Service: Anesthesiology Author Type: Nurse Industrial Production Manager Type: Procedures Filed: 07/09/2019 5:27 AM Note [...] comfortable able to move legs Placed By agmaricel/jimmie Pain Score After Treatment: 5 out of 10 See nurses' documentation for additional vitals. SIGNATURE: Marcos Mayes, RAMÓN.JIMMIE PATIENT NAME: Eb Hui DATE: July 09, 2019 TIME: 5:11 AM PAGER/CONTACT #: [facility] PROGRESSon 07-09-2019 PROGRESS HNO ID: [id number] Author: George Nguyễn Jr. Service: ? Author [...] DATE: July 09, 2019 TIME: 10:[address] [facility] PROGRESS HNO ID: [id number] Author: Sarah Ramirez Service: Obstetrics Author Type: Resident Type: Progress Notes Filed: 07/09/2019 7:27 AM Note Text: In to evaluate for a cat II FHT with concern for recurrent late decels. SVE now /-2. IUPC placed secondary to difficulty tracing contractions and pitocin running at 32 mU/min. The patient is making cervical change. Pt repositioned. Pt still getting comfortable with epidural. FHT: 120/min to mod/+accels/+intermittent late decels, +intermittent moderate variable decels [place]: q1-3 mins Cat II FHT 19 yo @ 33+1 IOL Pre-eclampsia with features Cat II FHT -DC pitocin. Restart at 30 minutes cat I FHT. -Pt making cervical change -IUPC placed without difficulty. Dr. Alas updated. Cont to monitor. Day team updated. Sarah Ramirez, PGY-3 Obstetrics and Gynecology Pager 07/09/2019 7:27 AM [facility] PROGRESS HNO ID: [id number] Author: Jorje Toledo DO Service: Obstetrics Author Type: Resident Type: Progress Notes Filed: 07/09/2019 6:12 AM Note Text: Recently received epidural, getting comfortable. BP 116/59 Pulse 83 Temp 36.9 ?C (98.4 ?F) (Oral) Resp 16 Ht 170.2 cm (5' 7) Wt 92.1 kg (203 lb) SpO2 96% BMI 31.79 kg/m? FHT: 125/mod variability/+ accels/intermittent mild variable, intermittent late decels [place]: q3-5min Active Hospital Problems Diagnosis Date Noted [...] - 3 years ago after exposure at [facility] - Vancomycin if for - Pneumonia affecting [...] Hui DATE: 07/09/2019 TIME: 6:00 AM PAGER: [phone] [facility] PROGRESS HNO ID: [id number] Author: Jorje Toledo DO Service: Obstetrics Author Type: Resident Type: Progress Notes Filed: 07/09/2019 5:15 AM Note Text: Patient desiring epidural at this time. BP 141/92 Pulse 81 Temp 36.9 ?C (98.4 ?F) (Oral) Resp 16 Ht 170.2 cm (5' 7) Wt 92.1 kg (203 lb) SpO2 96% BMI 31.79 kg/m? FHT: 130/min to mod variability/+ accels/intermittent mild variable decels [place]: q2-4min Active Hospital Problems Diagnosis Date Noted [...] wnl on admission - Magnesium started at [facility], currently running 2g/hr - Continue to monitor - Prematurity 07/08/2019 Overview Note: - s/p BMZ 07/06 and 07/07 - Growth at 32w6d 4lb 9oz 42%ile - NICU aware, plan to deliver in the OR - Scoliosis 07/08/2019 Overview Note: - Anesthesia to evaluate for epidural - History of MRSA infection 07/08/2019 Overview Note: - 3 years ago after exposure at [facility] - Vancomycin if for - Pneumonia affecting [...] Hui DATE: 07/09/2019 TIME: 5:14 AM PAGER: [phone] [facility] PROGRESS HNO ID: [id number] Author: Jorje Toledo DO Service: Obstetrics Author Type: Resident Type: Progress Notes Filed: 07/09/2019 3:25 AM Note Text: Patient comfortable. AROM performed for large amount of clear fluid. Patient tolerated well. BP 131/88 Pulse 73 Temp 36.9 ?C (98.4 ?F) (Oral) Resp 16 Ht 170.2 cm (5' 7) Wt 92.1 kg (203 lb) SpO2 95% BMI 31.79 kg/m? FHT: 130/mod variability/+ accels/- decels [place]: q2-4min Active Hospital Problems Diagnosis Date Noted [...] wnl on admission - Magnesium started at [facility], currently running 2g/hr - Continue to monitor - Prematurity 07/08/2019 Overview Note: - s/p BMZ 07/06 and 07/07 - Growth at 32w6d 4lb 9oz 42%ile - NICU aware, plan to deliver in the OR - Scoliosis 07/08/2019 Overview Note: - Anesthesia to evaluate for epidural - History of MRSA infection 07/08/2019 Overview Note: - 3 years ago after exposure at [facility] - Vancomycin if for - Pneumonia affecting [...] Hui DATE: 07/09/2019 TIME: 3:24 AM PAGER: [phone] [facility] PROGRESS HNO ID: [id number] Author: Jorje Toledo DO Service: Obstetrics Author Type: Resident Type: Progress Notes Filed: 07/09/2019 1:11 AM Note Text: Patient overall comfortable. BP 128/83 Pulse 71 Temp 36.9 ?C (98.4 ?F) (Oral) Resp 16 Ht 170.2 cm (5' 7) Wt 92.1 kg (203 lb) SpO2 96% BMI 31.79 kg/m? FHT: 135/min to mod variability/+ accels/isolated late decels [place]: q2-4min Active Hospital Problems Diagnosis Date Noted [...] - 3 years ago after exposure at [facility] - Vancomycin if for - Pneumonia affecting [...] Hui DATE: 07/09/2019 TIME: 1:10 AM PAGER: [phone] [facility] PROGRESS HNO ID: [id number] Author: Jorje Toledo DO Service: Obstetrics Author Type: Resident Type: Progress Notes Filed: 07/08/2019 10:18 PM Note Text: Patient overall comfortable. BP 135/88 Pulse 80 Temp 37.2 ?C (99 ?F) (Temporal) Resp 16 Ht 170.2 cm (5' 7) Wt 92.1 kg (203 lb) SpO2 96% BMI 31.79 kg/m? FHT: 130/min to mod variability/+ accels/- decels [place]: q1-5min Active Hospital Problems Diagnosis Date Noted [...] - 3 years ago after exposure at [facility] - Vancomycin if for - Pneumonia affecting [...] Hui DATE: 07/08/2019 TIME: 10:17 PM PAGER: [phone] [facility] ABO/Rh Confirmationon 2018 ABO group Nom (Bld) A Normal [facility] Comment on above: Performed By: #### A MIA #### [place] [address] RH Type Positive Normal [facility] Comment on above: Performed By: #### A MIA #### [place] [address] ANES PREOPon 07-08-2019 ANES PREOP HNO ID: [id number] Author: Jone Coulter (Srna) Service: Anesthesiology Author [...] with meals. Disp: 60 tablet Rfl: 3 Khdictlc-Ep-Soj-Fe-FA tab Take 1 tablet by mouth once daily. With DHA as covered by insurance Disp: 30 tablet Rfl: 11 Taking [facility]. I have interviewed and examined the patient. [...] 08, 2019 TIME: 3:33 PM : 2000 [facility] CONSULTon 07-08-2019 CONSULT HNO ID: [id number] Author: Crystal Castro Service: Neonatology Author Type: Physician Type: Consults Filed: 07/08/2019 12:05 PM Note Text: NEONATOLOGY CONSULT SERVICE DATE: 07/08/2019 Admission Date: 07/08/2019 SERVICE TIME: 1130 Date of : 2000 Age: [age] year old Sex: female Primary Care Physician: Carolann Matthew MD Consulting Manager Of Case Management: Karla Armstrong APRN.BUCKET [employer]URNER and Crystal Castro MD Subjective Consultation for [...] tablet by mouth twice daily with meals. Vtiysaoj-Qz-Vck-Fe-FA tab Take 1 tablet by mouth once [...] delays: No Discussed need for evaluation by Transit Planning Manager for ROP: No Discussed risk for hearing [...] Verbal consent obtained: No MISC. Name if Replenishment Associate, if known: Unknown, please contact patient's primary care physician Possible need for transfer to outside hospital: Yes Possible need for subspecialty evaluation: No Additional discussion: N/A Impression/Recommendations Assessment: (male) to deliver at 33 weeks gestation; labor induced due to severe pre-eclampsia Plan: Neonatology to be present at delivery Physician [id number] total time, including discussion: 70 minutes, more than 50 % of time devoted to coordination of care and/or counseling. SIGNATURE: Karla Armstrong APRN.ELLIE PATIENT NAME: Eb Hui DATE: July 08, 2019 TIME: 11:49 AM I discussed above with mom in detail. No additional questions. Crystal Castro MD [facility] CONSULT HNO ID: [id number] Author: Jorje Toledo DO Service: Obstetrics Author Type: Resident Type: Consults Filed: 07/08/2019 3:16 AM Note Text: -- Attestation signed by Mauricio Mckeon at 07/08/2019 5:30 AM Attending Note I personally saw and examined the patient. I reviewed the resident's note. I agree with the resident's assessment and plan unless otherwise noted. Signature: Mauricio Mckeon DO -- OBSTETRICS CONSULT ? SERVICE DATE: July 08, 2019 SERVICE TIME: 3:16 AM ? ? Subjective Patient's stated reason for arrival: diagnosed with pre-e ? CHIEF COMPLAINT: Transfer from [facility] ? HISTORY OF THE PRESENT ILLNESS: The patient is a 19 year old female, , who is at 33w0d here as a transfer of care from [facility] after being diagnosed with preeclampsia with features. Patient was previously admitted at [facility] at 32w5d for preeclampsia without features for observation. At that time, patient had labwork drawn that was overall normal and received 2 doses of betamethasone. She has intermittently had a headache and right upper quadrant pain since that time. She now has persistent right upper quadrant pain that she describes as persistently dull and intermittently sharp. When seen in [facility], she had high mild to severe range blood pressures and was started on Magnesium and sent to [facility]. ? She denies any current headache. [...] Prescriptions Last Dose Informant Patient Reported? Taking? Oopwfbio-Pn-Aww-Fe-FA tab ? ? No No Sig: Take [...] EXAM: Dilation: Closed (07/08/19 0243 : Jorje Toledo DO) cm ? MONITORING/ASSESSMENT: ? Baseline: 140 Variability: Moderate (6-25 bpm) Accelerations: Present Decelerations: None Contractions: Not present Frequency: None NST Interpretation: Category I and Reactive ? ULTRASOUND: US findings: Head position: cephalic, HR: 140s, Placental location: anterior, Amniotic Fluid: DVP 7.5cm ? ? LABS Diagnostic tests reviewed for today's visit: Outside chart from [facility] reviewed. records reviewed ? ? Assessment/Plan 19 [...] Hui DATE: 07/08/2019 TIME: 3:16 AM PAGER: [phone] [facility] Comprehensive Panelon 2018 Urea nitrogen [Mass/Vol] 12 mg/dL Normal 7-18 [facility] Comment on above: Performed By: #### P 14 #### [facility] [address] [place], [place] [address] ALP [Catalytic activity/Vol] 110 U/L Normal 45-117 [facility] Comment on above: Performed By: #### P 14 #### [facility] [address] [place], [place] [address] Bilirubin [Mass/Vol] 0.2 mg/dL Normal 0.2-1.0 [facility] Comment on above: Performed By: #### P 14 #### [facility] [address] [place], [place] [address] Creatinine [Mass/Vol] 0.66 mg/dL Normal 0.51-0.95 [facility] Comment on above: Performed By: #### P 14 #### [facility] [address] [place], [place] [address] Protein [Mass/Vol] 5.8 g/dL Low 6.4-8.2 [facility] Comment on above: Performed By: #### P 14 #### [facility] [address] [place], [place] [address] AST [Catalytic activity/Vol] 12 U/L Low 15-37 [facility] Comment on above: Performed By: #### P 14 #### [facility] [address] [place] [address] ALT [Catalytic activity/Vol] 13 U/L Normal 12-78 [facility] Comment on above: Performed By: #### P 14 #### [facility] [address] [place], [place] [address] Albumin [Mass/Vol] 2.2 g/dL Low 3.4-5.0 [facility] Comment on above: Performed By: #### P 14 #### [facility] [address] [place], [place] [address] Anion gap [Moles/Vol] 14 mmol/L Normal 8-16 [facility] Comment on above: Performed By: #### P 14 #### [facility] [address] [place], [place] [address] CO2 [Moles/Vol] 20 mmol/L Low 21-32 [facility] Comment on above: Performed By: #### P 14 #### [facility] [address] [place], [place] [address] Calcium [Mass/Vol] 7.8 mg/dL Low 8.5-10.1 [facility] Comment on above: Performed By: #### P 14 #### [facility] [address] [place], [place] [address] Glucose [Mass/Vol] 73 mg/dL Normal 70-99 [facility] Comment on above: Performed By: #### P 14 #### [facility] [address] [place], [place] [address] Chloride [Moles/Vol] 102 mmol/L Normal 98-107 [facility] Comment on above: Performed By: #### P 14 #### [facility] [address] [place], [place] [address] Potassium [Moles/Vol] 3.5 mmol/L Normal 3.5-5.1 [facility] Comment on above: Performed By: #### P 14 #### [facility] [address] [place], [place] [address] Sodium [Moles/Vol] 132 mmol/L Low 136-145 [facility] Comment on above: Performed By: #### P 14 #### [facility] [address] [place], [place] [address] ECG COMPLETEon 07-08-2019 ECG COMPLETE NAME : EB HUI PID : [id number] : 2000 Gender : Female Race : ORD : [id number] Procedure Date : Jul 08 2019 04:20:04 Edit Date : Jul 08 2019 14:31:36 Diagnosis:NORMAL SINUS RHYTHM NORMAL ECG NO PREVIOUS ECGS AVAILABLE Confirmed by MD MENDOZA VINAY ([id number]) on 07/08/2019 2:31:29 PM Ventricular Rate : 74 BPM Atrial Rate : 74 BPM P-R Interval : 160 ms QRS Duration : 76 ms Q-T Interval : 400 ms QTC Calculation(Bazett) : 444 ms P [place] : 46 degrees R [place] : 62 degrees T [place] : 48 degrees Test Reason : Chest Pain Location : 6 : CVICU LDR Overread By : MD MENDOZA VINAY Edited By : MD MENDOZA VINAY Referred By : , Acquired by : VELASQUEZ ONEAL [facility] HISTORY PHYSICALon 10-16-201 9 HISTORY PHYSICAL HNO ID: [id number] Author: Jorje Toledo DO Service: Maternal Medicine [...] diagnosed with pre-e CHIEF COMPLAINT: Transfer from [facility] HISTORY OF THE PRESENT ILLNESS: The patient is a 19 year old female, , who is at 33w0d here as a transfer of care from [facility] after being diagnosed with preeclampsia with features. Patient was previously admitted at [facility] at 32w5d for preeclampsia without features for observation. At that time, patient had labwork drawn that was overall normal and received 2 doses of betamethasone. She has intermittently had a headache and right upper quadrant pain since that time. She now has persistent right upper quadrant pain that she describes as persistently dull and intermittently sharp. When seen in [facility], she had high mild to severe range blood pressures and was started on Magnesium and sent to [facility]. She denies any current headache. She [...] Prescriptions Last Dose Informant Patient Reported? Taking? Crywsvrb-Hc-Ztw-Fe-FA tab No No Sig: Take 1 tablet [...] EXAM: Dilation: Closed (07/08/19 0243 : Jorje Toledo DO) cm MONITORING/ASSESSMENT: Baseline: 140 Variability: Moderate (6-25 bpm) Accelerations: Present Decelerations: None Contractions: Not present Frequency: None NST Interpretation: Category I and Reactive ULTRASOUND: US findings: Head position: cephalic, HR: 140s, Placental location: anterior, Amniotic Fluid: DVP 7.5cm LABS Diagnostic tests reviewed for today's visit: Outside chart from [facility] reviewed. records reviewed Assessment/Plan 19 year old [...] 08, 2019 TIME: 2:43 AM PAGER/CONTACT #: [phone] [facility] Hemogramon 07-08-2019 Erythrocyte distribution width (RBC) [Ratio] 14.1 % Normal 11.7-14.4 [facility] Comment on above: Performed By: #### C BC1 #### [place] [address] Hematocrit (Bld) [Volume fraction] 29.0 % Low 34.1-44.9 [facility] Comment on above: Performed By: #### C BC1 #### [facility] [address] [place] [address] Hemoglobin (Bld) [Mass/Vol] 9.1 g/dL Low 11.2-15.7 [facility] Comment on above: Performed By: #### C BC1 #### [facility] [address] [place] [address] MCH (RBC) [Entitic mass] 27.6 pg Normal 25.6-32.2 [facility] Comment on above: Performed By: #### C BC1 #### [facility] [address] [place] [address] MCHC (RBC) [Mass/Vol] 31.4 % Low 31.6-34.8 [facility] Comment on above: Performed By: #### C BC1 #### [facility] [address] [place] [address] MCV (RBC) [Entitic vol] 87.9 fL Normal 79.4-94.8 [facility] Comment on above: Performed By: #### C BC1 #### [facility] [address] [place] [address] Nucleated RBC (Bld) [#/Vol] 0.02 thou/cmm High 0.00-0.01 [facility] Comment on above: Performed By: #### C BC1 #### [facility] [address] [place] [address] Nucleated RBC/100 WBC (Bld) [Ratio] 0.1 % Normal 0.0-0.2 [facility] Comment on above: Performed By: #### C BC1 #### [facility] [address] [place] [address] Platelet mean volume (Bld) [Entitic vol] 10.9 fL Normal 9.4-12.3 [facility] Comment on above: Performed By: #### C BC1 #### [facility] [address] [place] [id number] Platelets (Bld) [#/Vol] 185 thou/cmm Normal 182-369 [facility] Comment on above: Performed By: #### C BC1 #### [facility] [address] [place] [id number] RBC (Bld) [#/Vol] 3.30 mil/cmm Low 3.93-5.22 [facility] Comment on above: Performed By: #### C BC1 #### [place] [address] RDW SD 44.7 fl Normal 36.4-46.3 [facility] Comment on above: Performed By: #### C BC1 #### [facility] [address] [place] [address] WBC (Bld) [#/Vol] 14.74 thou/cmm High 3.98-10.04 [facility] Comment on above: Performed By: #### C BC1 #### [place] [address] MDRD GFRon 07-08-2019 GFR/1.73 sq M predicted among non-blacks MDRD (S/P/Bld) [Vol rate/Area] mL/min/{1.73_m2} Normal >60mL/min/1.73 m2 [facility] Comment on above: Result Comment: If t he patient is , multiply the result by 1.210. Performed By: #### G FR #### [place] [address] Magnesium Bloodon 07-08-2019 Magnesium [Mass/Vol] 5.8 mg/dL Critically high 1.6-2.6 [facility] Comment on above: Result Comment: RESU LT RECHECKED Performed By: #### M AG #### [place] [address] NURSING PROGon 07-08-2019 NURSING PROG HNO ID: [id number] Author: Leydi (Rn) PATIENCE Damico Service: Nursing Author Type: Registered Nurse Type: Nursing Progress Note Filed: 07/08/2019 11:41 AM Note Text: SCN here to see PT. NURSE PRACTITIONER PHYSICIANS ASSISTANT and Perinatologist. [facility] NURSING PROG HNO ID: [id number] Author: Leydi (Rn) PATIENCE Damico Service: Nursing Author Type: Registered Nurse Type: Nursing Progress Note Filed: 07/08/2019 11:40 AM Note Text: Picc line start of use. Magnesium and LR hung into the PICC line with new tubing. [facility] NURSING PROG HNO ID: [id number] Author: Alyssia NegreteRn) PATIENCE Caldwell Service: Nursing Author Type: Registered Nurse Type: Nursing Progress Note Filed: 07/08/2019 11:08 AM Note Text: Patient given educational hand out related to her PICC line placement. Patient verbalizes understanding, no questions at this time. [facility] NURSING PROG HNO ID: [id number] Author: Shana NegreteRn) PATIENCE Dimas Service: ? Author Type: Registered Nurse Type: Nursing Progress Note Filed: 07/08/2019 9:01 AM Note Text: Nursing Progress Note Patient Name: Eb Hui Patient [facility]: [facility] Special ops called for labs. Unable to obtain x2 attempts. RN notified. This note was completed by: Shana Dimas RN [facility] NUTRITIONon 07-08-2019 NUTRITION HNO ID: [id number] Author: Leydi NegreteRn) Margaux, PATIENCE Service: Nursing Author Type: Registered Nurse Type: Nutrition Filed: 07/08/2019 11:38 AM Note Text: Magnesium level drawn and sent. Dr. Whitfield is aware . [facility] PROCEDUREon 07-08-2019 PROCEDURE HNO ID: [id number] Author: Cydney NegreteRn) Jose G Causey RN [...] PLACEMENT: Sterile PRIMARY PROCEDURALIST: Cydney Causey RN EMERGENCY MEDICINE PHYSICIAN ASSISTANT: Roberta England PRE-PROCEDURE REVIEW ALLERGIES No Known [...] Completed Cydney Causey RN CATHETER PLACEMENT Brand: [employer] Lot: [id number] Number of Lumens: 2 Type of PICC: Power Injectable PICC Lumen Size: 5 Swedish PLACEMENT TECHNIQUE Lidocaine: Yes. Strength: 1% Volume [...] None Patient Education Materials: Placed in chart [facility] Central Line Insertion Checklist QUESTIONS or PROBLEMS: Call [id number] SIGNATURE: Cydney Causey RN PATIENT NAME: Eb Hui DATE: July 08, 2019 TIME: 10:36 AM PAGER/CONTACT PHONE: [facility] PROGRESSon 07-08-2019 PROGRESS HNO ID: [id number] Author: Jorje Toledo DO Service: Obstetrics Author Type: Resident Type: Progress Notes Filed: 07/08/2019 8:14 PM Note Text: Patient overall comfortable s/p cook catheter removal and morphine. BP 147/86 Pulse 84 Temp 37.2 ?C (99 ?F) (Temporal) Resp 16 Ht 170.2 cm (5' 7) Wt 92.1 kg (203 lb) SpO2 95% BMI 31.79 kg/m? FHT: 130/mod variability/+ accels/- decels [place]: q3-5min Active Hospital Problems Diagnosis Date Noted [...] - 3 years ago after exposure at [facility] - Vancomycin if for - Pneumonia affecting [...] Hui DATE: 07/08/2019 TIME: 8:13 PM PAGER: [phone] [facility] PROGRESS HNO ID: [id number] Author: Jorje Toledo DO Service: Obstetrics Author Type: Resident Type: Progress Notes Filed: 07/08/2019 6:19 PM Note Text: Patient uncomfortable, recently received morphine. BP 140/91 Pulse 85 Temp 37.2 ?C (99 ?F) (Temporal) Resp 16 Ht 170.2 cm (5' 7) Wt 92.1 kg (203 lb) SpO2 97% BMI 31.79 kg/m? FHT: 130/mod variability/+ accels/- decels [place]: q2-5min Active Hospital Problems Diagnosis Date Noted [...] wnl on admission - Magnesium started at [facility], currently running 2g/hr. Magnesium level pending - Continue to monitor - Prematurity 07/08/2019 Overview Note: - s/p BMZ 07/06 and 07/07 - Growth at 32w6d 4lb 9oz 42%ile - NICU aware, plan to deliver in the OR - Scoliosis 07/08/2019 Overview Note: - Anesthesia to evaluate for epidural - History of MRSA infection 07/08/2019 Overview Note: - 3 years ago after exposure at [facility] - Vancomycin if for - Pneumonia affecting [...] Hui DATE: 07/08/2019 TIME: 6:15 PM PAGER: [phone] [facility] PROGRESS HNO ID: [id number] Author: Nancy Gonzales Service: Obstetrics Author Type: [...] to monitor bleeding and FHT closely. Nancy Gonzales, Pager # [phone] 07/08/2019 2:[address] [facility] PROGRESS HNO ID: [id number] Author: Nancy (Dread) Janet Service: Obstetrics Author Type: Resident Type: Progress Notes Filed: 07/08/2019 2:16 PM Note Text: S: Patient tolerating contractions. O: BP 139/85 Pulse 118 Temp 36.8 ?C (98.2 ?F) (Temporal) Resp 18 Ht 170.2 cm (5' 7) Wt 92.1 kg (203 lb) SpO2 92% BMI 31.79 kg/m? FHT: 140/moderate variability/+accels/-decel s [place]: q3-6 minutes CE: 1/50/-3 A/P: 19yo at [...] - 3 years ago after exposure at [facility] - Vancomycin if for - Pneumonia affecting [...] recent check. Nancy Gonzales DO Pager # [phone] 07/08/2019 2:16 PM [facility] PROGRESS HNO ID: [id number] Author: Roberta (Rn) PATIENCE [place] Service: PICC [...] for follow-up SUPPLEMENTAL MATERIAL: PICC Line brochure [facility] PROGRESS HNO ID: [id number] Author: Gillian Whitfield Service: Obstetrics Author Type: [...] wnl on admission - Magnesium started at [facility], currently running 2g/hr. Magnesium level pending - Continue to monitor - Prematurity 07/08/2019 Overview Note: - s/p BMZ 07/06 and 07/07 - Growth at 32w6d 4lb 9oz 42%ile - NICU aware, plan to deliver in the OR - Scoliosis 07/08/2019 Overview Note: - Anesthesia to evaluate for epidural - History of MRSA infection 07/08/2019 Overview Note: - 3 years ago after exposure at [facility] - Vancomycin if for - Pneumonia affecting [...] 9:44 AM Obstetrics and Gynecology PGY3 Pager #[phone] [facility] PROGRESS HNO ID: [id number] Author: Gillian Whitfield Service: Obstetrics Author Type: Resident Type: Progress Notes Filed: 07/08/2019 9:42 AM Note Text: CXR reviewed. Findings are suspicious for pneumonia based on this and the patient's productive cough with chest discomfort. We will initiate treatment with amoxicillin and azithromcyin. Reviewed with Dr. Nguyễn. Gillian Whitfield MD 07/08/2019 9:42 AM Obstetrics and Gynecology PGY3 Pager #[phone] [facility] PROGRESS HNO ID: [id number] Author: Gillian Whitfield Service: Obstetrics Author Type: Resident Type: Progress Notes Filed: 07/08/2019 9:32 AM Note Text: Cytotec #2 placed at 0925. Gillian Whitfield MD 07/08/2019 9:32 AM Obstetrics and Gynecology PGY3 Pager #[phone] [facility] PROGRESS HNO ID: [id number] Author: George Nguyễn Jr. Service: ? Author [...] DATE: July 08, 2019 TIME: 9:19 AM [facility] PROGRESS HNO ID: [id number] Author: Gillian Whitfield Service: Obstetrics Author Type: Resident Type: Progress Notes Filed: 07/08/2019 9:06 AM Note Text: Pt has difficult vascular access and will have a PICC inserted per Dr. Nguyễn. Gillian Whitfield MD 07/08/2019 9:06 AM Obstetrics and Gynecology PGY3 Pager #[phone] [facility] PROGRESS HNO ID: [id number] Author: Gillian Whitfield Service: Obstetrics Author Type: [...] 8:26 AM Obstetrics and Gynecology PGY3 Pager #[phone] [facility] PROGRESS HNO ID: [id number] Author: Jorje NegreteRes) DO Tre Service: Obstetrics Author Type: Resident Type: Progress Notes Filed: 07/08/2019 3:43 AM Note Text: On initial interview, patient had denied any chest pain. However with turner machine, patient endorsed aching chest pain that began last night. Will obtain EKG at this time. SIGNATURE: Jorje Toledo DO PATIENT NAME: Eb Hui DATE: 07/08/2019 TIME: 3:43 AM PAGER: [phone] [facility] PROGRESS HNO ID: [id number] Author: Nati NegreteRn) PATIENCE Huffman Service: Nursing Author Type: Registered Nurse Type: Progress Notes Filed: 07/08/2019 2:35 AM Note Text: Pt arrived from [facility] as a transfer. Pt with IV in place on admission as well as Magnesium running at 2Gm/hr and LR at 10cc/hr. Normal [facility] Type and Screenon 07-08-2019 ABO group Nom (Bld) A Normal [facility] Comment on above: Performed By: #### T &S #### [place] [address] Comment See Below Normal [facility] Comment on above: Result Comment: Scre en &/or Xmatch expires in 3 days at 12 midnight. Redraw patient at that time. Performed By: #### T &S #### [place] [address] RH Type Positive Normal [facility] Comment on above: Performed By: #### T &S #### [facility] [address] [place] [phone] XR CHEST 1V FRONTALon 2018 XR CHEST [...] are most suspicious for pneumonia. Correlate clinically. [employer]anners: OLGA Transcribe Date/Time: Jul 08 2019 9:15A Dictated by : MEDINA TAMAYO MD This examination was interpreted and the report reviewed and electronically signed by: MEDINA TAMAYO MD on Jul 08 2019 9:16AM EST Normal [facility] CULTURE URINEon 05-06-2018 CULTURE URINE CULTURE URINE _URINE CULTURE_ M I C R O B I O L O G Y R E P O R T FINAL --------- Antimicrobial Susceptibility and Organism Identification Report -------- Specimen Number : [id number] Requested : 05/06/18 Specimen Source : URINE Collected : 05/06/18 19:34 Arriaga of Isolation : OUTPATIENT Received : 05/06/18 19:34 Requesting Physician : CRISTA Patient/Specimen Tests and Comments Specimen Comments -------- -------- FINAL REPORT: URINE COLONY COUNT: 50,000-100,000 CFU/CC >OR=TO 3 COLONY TYPES PROBABLE CONTAMINATION Tech : Source : URINE ID # : [id number] FINAL Report Date : / / : Collected : 05/06/18 19:34 05/09/18.0929.JLN. 05/08/18.1041.JLN. 05/09/18.0929.JLN.COMPLETE Normal [facility] Comment on above: Performed By: #### 2 [id number] ####[facility],[address] [place] [address] Discharge Summaryon 02-29-20 18 Photo Lab Technician Authentication Interface Message Text Discharge/Transfer SummaryName: Eb Eileen Yee#: [id number] : 2000 #: 6221/01 Age/Sex: 18 y.o. femaleAdmit Date: 02/26/2018 Admitting: LAWANDA Changischarge Date: 02/28/2018[facility] Amy Sharp MDFinal Diagnosis:Right peritonsillar venous malformationPossible superadded viral URI [...] ResultIMPRESSION:1. Right neck mass centered in the licensed retail supervisor space with characteristics on CTand MRI [...] MedicationsThese medications were sent to [facility] [address] methylPREDNISolone 4 MG Dose-Emiliano (21 EACH) metroNIDAZOLE 500 MG tabletDischarge Instructions:Instructions/ Follow Up Future Labs/Procedures Expected by Expires [place] Law: Child Safety Seat Instructions As directed Comments: It is the [facility] Law that every child under 8 years old must ride in anappropriate child safety seat unless the child is 4'9 or taller. Every childfrom 8-15 years old who is not secured in a child safety seat must be secured inthe vehicle's seat belt. [facility] advises that all motorvehicle passengers be restrained. [...] they can helpdirect you.Ear, Nose and Throat [address] [place] [phone]: [phone] have been prescribed Flagyl for Bacterial Vaginosis, please take this twicedaily for 7 days. Please follow up with your established Professor Of Floriculture.Please call your primary care physician Carolann Matthew MD for a follow upappointment in 2-3 days.Carolann Matthew MD[address] [facility] [phone] you are having any difficulty breathing or [...] age As directedSigned:Rosi Soliman MD2:45 PM02/28/2018 Normal [facility] EBV (VCA) IgG Abon 8 EBV (VCA) IgG Ab 4.045600 ISR Normal [facility] Comment on above: Result Comment: POSI TIVEReference [...] infection withEBV. Performed By: #### E BVIG ####[address] [phone] EBV (VCA) IgM Abon 8 EBV (VCA) IgM Ab 1.979711 ISR Normal [facility] Comment on above: Result Comment: POSI TIVEReference [...] infection withEBV. Performed By: #### E BVIM ####[address] [phone] EBV Nuclear Ag Abson 018 EBV Ab-Nuclear Ag >8.0 Normal [facility] Comment on above: Result Comment: AI V ALUES ARE INTERPRETED FOLLOWS:NEGATIVE SPECIMENS <=0.8EQUIVOCAL SPECIMENS 0.9 TO 1.0POSITIVE SPECIMENS >=1.1 Antibody index(AI) values reflect qualitative changes in antibody concentration that cannot be associated with clinical condition or disease state. Performed By: #### E BVNA ####[address] [phone] EBV Ab-Nuclear Ag, Qual Positive Abnormal NEGAT [facility] Comment on above: Result Comment: Spec imen is positive for EBV NA-1 IgG antibody. A positive test result presumes a current or past infection with EBV. Other EBV serology assays such as the EBV VCA IgM should be performed to confirm serologic status, active acute, past or indeterminate infection for EBV-associated infectious mononucleosis.Testing Performed:[facility] [address] [place] [address] Performed By: #### E BVNA ####[address] [phone] MRI NECK WITH AND WITHOUT CO NTRASTon 02-28-2018 MRI NECK WITH AND WITHOUT CONTRAST CLINICAL HISTORY: sore throat x2 weeks, CT w/ R peritonsillar mass w/calcificationTECHNIQUE: MRI of the neck was performed at 3.0 [place] prior to and followingintravenous contrast.COMPARISON: CT of the neck 02/26/2018FINDINGS:There is confirmation of soft tissue mass centered in the right licensed retail supervisor space measuring 3.3 cm AP by 4.1 cm transverse (image 7 of series 5) by 6.8 cmcranioaudal (image 23 series 29). Mass demonstrates diffusely hyperintense. [id number] with foci of known calcification within the [...] on the left at the level of [id number] 1.3 x 1.4 cm (image 3 of [...] 5).IMPRESSION:1. Right neck mass centered in the licensed retail supervisor space with characteristics on CTand MRI which favor venous malformation.2. Significant adenoid and lingular tonsillar enlargement.3. Bilateral neck adenopathy most prominent in the left upper jugular chain.Recommend ongoing follow-up for the adenopathy to document resolution/decreasein size after treatment.This report has been created using voice recognition softwareSigned by: Dr. Crystal Prieto at 02/28/2018 09:28 Normal [facility] C-Reactive Proteinon 06-06-2 018 C reactive protein (CRP) mg/L Normal 0.0-1.0 [facility] Comment on above: Result Comment: CRP determinations in neonates should be interpreted withcaution. CRP may be elevated in circumstances not associatedwith inflammation (e.g. difficult delivery, pneumothorax). Inpremature neonates CRP levels may not rise to abnormal levelseven if sepsis is present; some speculate that immature liverfunction decreases the ability to generate a CRP response. Performed By: #### C RP ####[facility] of [address] [phone] CT SOFT TISSUE NECK WITH CON TRASTon [...] Dr. Virginia Contreras at 02/26/2018 17:23 Normal [facility] Comp Metabolic Panelon 02-26 Alanine aminotransferase (ALT) 13 U/L Normal 0-31 [facility] Comment on above: Performed By: #### C MP ####[address] [phone] Albumin 3.7 g/dL Normal 3.5-5.0 [facility] Comment on above: Performed By: #### C MP ####[address] [phone] Alkaline phosphatase (ALP) 61 U/L Normal 35-104 [facility] Comment on above: Performed By: #### C MP ####[address] [phone] Aspartate aminotransferase (AST) 14 U/L Normal 0-31 [facility] Comment on above: Performed By: #### C MP ####[address] [phone] Bili,Total 0.6 mg/dl Normal 0.0-1.0 [facility] Comment on above: Result Comment: Yoel ature : 1 Day 1.0-6.0 mg/dl 2 Day 6.0-8.0 mg/dl 3-5 Day 10.0-15.0 mg/dl Performed By: #### C MP ####[address] [phone] Calcium 9.0 mg/dL Normal 7.6-11.0 [facility] Comment on above: Performed By: #### C MP ####[address] [phone] Chloride 101 mmol/L Normal 96-108 [facility] Comment on above: Performed By: #### C MP ####[address] [phone] CO2 24.5 mmol/L Normal 22.0-29.0 [facility] Comment on above: Performed By: #### C MP ####[address] [phone] Creatinine 0.78 mg/dL Normal 0.50-1.00 [facility] Comment on above: Result Comment: Yoel ature 0.3-1.0 mg/dL Performed By: #### C MP ####[address] [phone] Glucose mass conc 82 mg/dL Normal 70-99 [facility] Comment on above: Result Comment: David morales for Diagnosis of Diabetes(Effective 02/26/11):Fasting specimen (no caloric intake for at least 8 hours). <100 mg/dl Normal 100-125 mg/dl Increased Risk for Diabetes >125 mg/dl Diagnostic for DiabetesRandom Glucose (any time of day without regard to last meal). >=200 mg/dl plus Classic Symptoms of Diabetes Performed By: #### C MP ####[address] [phone] Potassium molar conc 3.7 mmol/L Normal 3.3-5.1 [facility] Comment on above: Performed By: #### C MP ####[facility] [address] [phone] Protein 7.5 g/dL Normal 5.9-8.4 [facility] Comment on above: Performed By: #### C MP ####[address] [phone] Sodium 135 mmol/L Normal 133-145 [facility] Comment on above: Performed By: #### C MP ####[address] [phone] Urea nitrogen 9 mg/dL Normal 4-19 [facility] Comment on above: Performed By: #### C MP ####[address] [phone] Complete Blood Counton 02-26 Differential Complete Manual Normal [facility] Comment on above: Performed By: #### C BC ####[address] [phone] Erythrocyte distribution width Auto Ratio (RBC) 12.5 % Normal 0.0-14.4 [facility] Comment on above: Performed By: #### C BC ####[address] [phone] Erythrocytes (RBC) 4.62 10E12/L Normal 4.00-4.90 [facility] Comment on above: Performed By: #### C BC ####[facility] [address] [phone] Hematocrit (HCT) 40.4 % Normal 36.0-44.0 [facility] Comment on above: Performed By: #### C BC ####[address] [phone] Hemoglobin mass conc (Bld) 13.6 g/dL Normal 12.0-15.0 [facility] Comment on above: Performed By: #### C BC ####[address] [phone] Immature granulocytes/100 WBC (Bld) 0.30 % Normal [facility] Comment on above: Result Comment: Amanda ture Granulocyte Percent includes promyelocytes, myelocytes,and metamyelocytes. IG% > 1.0 indicates a left shift ispresent. With automated differentials, bands are includedin the neutrophil count and not in the Immature GranulocytePercent. Performed By: #### C BC ####[address] [phone] MCH 29.4 pg Normal 26.0-34.0 [facility] Comment on above: Performed By: #### C BC ####[address] [phone] MCHC mass conc (RBC) 33.7 % Normal 31.0-37.0 [facility] Comment on above: Performed By: #### C BC ####[address] [phone] MCV 87.4 fL Normal 80.0-100.0 [facility] Comment on above: Performed By: #### C BC ####[address] [phone] Nucleated RBC % 0.0 % Normal -1.0-0.0 [facility] Comment on above: Performed By: #### C BC ####[address] [phone] Platelet mean volume (PMV) 9.4 fL Normal [facility] Comment on above: Result Comment: MPV is plateletrange and agedependent Performed By: #### C BC ####[address] [phone] Platelets 251 10*3/uL Normal 150-450 [facility] Comment on above: Performed By: #### C BC ####[facility] [place] [phone] WBC (Leukocytes) 7.8 10*3/uL Normal 4.5-11.0 [facility] Comment on above: Performed By: #### C BC ####[facility] [place] [phone] H&Hiro 02-26-2018 Photo Lab Technician Authentication Interface Message Text HISTORY AND PHYSICALDATE OF SERVICE: 02/26/2018ATTENDING PROVIDER: Amy Sharp MDPRIMARY CARE PROVIDER: RICH Gonzalez COMPLAINT: Fatigue, throat pain and muffled voiceREASON [...] which she has undergone some workup with cad developer showing polyps in heruterus, and multiple episodes [...] EnglishTravel: NoPets: Yes: 2 dogsDaycare: senior in [facility] HistoryProblem Relation Age of Onset High Blood [...] plan documented by the resident.Amy Sharp Normal [facility] HCG, Serumon 02-26-2018 HCG Qn Negative Normal [facility] Comment on above: Result Comment: Nonp regnant females and males-Negative females-Positive Performed By: #### H CGS ####[address] [phone] Manual Differentialon 2017 Anisocytosis presence Slight Normal [facility] Comment on above: Performed By: #### M DIFF ####[address] [phone] Lymphocytes/100 leukocytes 41 % Normal 24-44 [facility] Comment on above: Performed By: #### M DIFF ####[address] [phone] Metamyelocytes 0 % Normal 0-0 [facility] Comment on above: Performed By: #### M DIFF ####[facility] [address] [phone] Metamyelocytes/100 leukocytes 0 % Normal 0-0 [facility] Comment on above: Performed By: #### M DIFF ####[address] [phone] Monocytes/100 leukocytes 6 % Normal 3-6 [facility] Comment on above: Performed By: #### M DIFF ####[address] [phone] Neutrophils 4.1 Normal [facility] Comment on above: Performed By: #### M DIFF ####[address] [phone] Neutrophils band/100 leukocytes 1 % Low 5-11 [facility] Comment on above: Performed By: #### M DIFF ####[address] [phone] Polychromasia Occasional Normal [facility] Comment on above: Performed By: #### M DIFF ####[facility] [address] [phone] Promyelocytes 0 % Normal 0-0 [facility] Comment on above: Performed By: #### M DIFF ####[facility] [address] [phone] Segmented Neutrophils/100 leukocytes 52 % Normal 35-66 [facility] Comment on above: Performed By: #### M DIFF ####[facility] [address] [phone] Thurston-Screenon 02-26-2018 Thurston-Screen Negative Normal Negative [facility] Comment on above: Result Comment: If i ndicated,an EBV IgM may be of diagnostic value. Performed By: #### M SPOT ####[facility] [address] [phone] Progress Noteon 02-26-2018 Photo Lab Technician Authentication Interface Message Text Eb Hui is [...] history is provided by the patient. No biblical languages professor was used.Review of SystemsReview of Systems:Constitution: Negative [...] patient or family member.Addison Meyers 2017 Normal [facility] Urinalysis,Automatedon 02-26 Erythrocytes (RBC) 0 10*6/uL Normal 0.0-20.0 [facility] Comment on above: Performed By: #### U FMIC ####[address] [phone] Urine, squamous cells in sediment 20 /uL Normal 0-20 [facility] Comment on above: Performed By: #### U FMIC ####[address] [phone] WBC (Leukocytes) 0.016 10*3/uL Normal 0.0-20.0 [facility] Comment on above: Performed By: #### U FMIC ####[address] [phone] Urinalysis,Completeon 2017 Volume 12 ml Normal 12 [facility] Comment on above: Performed By: #### U ACOM ####[facility] [address] [phone] Bilirubin,urine Negative Normal Negative [facility] Comment on above: Performed By: #### U ACOM ####[facility] [address] [phone] Hemoglobin mass conc (Bld) Negative Normal Negative [facility] Comment on above: Performed By: #### U ACOM ####[facility] [address] [phone] Protein,Ur Negative Normal Neg.-Trace [facility] Comment on above: Performed By: #### U ACOM ####[facility] [address] [phone] Urine, character Hazy Normal [facility] Comment on above: Performed By: #### U ACOM ####[facility] [address] [phone] Urine, color Straw Normal [facility] Comment on above: Performed By: #### U ACOM ####[facility] [address] [phone] Urine, glucose presence TRACE Normal Negative [facility] Comment on above: Performed By: #### U ACOM ####[facility] [address] [phone] Urine, ketones presence Negative Normal Negative [facility] Comment on above: Performed By: #### U ACOM ####[facility] [address] [phone] Urine, leukocyte esterase presence Negative Normal Negative [facility] Comment on above: Performed By: #### U ACOM ####[facility] [address] [phone] Urine, nitrite presence Negative Normal Negative [facility] Comment on above: Performed By: #### U ACOM ####[address] [phone] Urine, pH 8.0 Normal 5.0-8.0 [facility] Comment on above: Performed By: #### U ACOM ####[address] [phone] Urine, specific gravity >1.030 Normal 1.005-1.030 [facility] Comment on above: Performed By: #### U ACOM ####[address] [phone] Urine, urobilinogen 0.2 mg/dl Normal Negative [facility] Comment on above: Performed By: #### U ACOM ####[address] [phone] Urine Cultureon 02-26-2018 Urine culture, bacteria Urine Culture: 10,000 - 50,000 CFU/ml of Normal Skin/urogenital ziggy Source: URNMD Collected: 02/26/18 21:10 Site: Received : 02/26/18 22:41Urine Culture FINAL 02/28/18 08:27 10,000 - 50,000 CFU/ml of Normal Skin/urogenital ziggy present Normal [facility] Comment on above: Performed By: #### U RINE ####[address] [phone] eGFRon 02-26-2018 eGFR (non-black) 88.42 Normal [facility] Comment on above: Result Comment: Refe rence range:> 3 months:>90 ml/min/1.73m^2Ref. Range change [id number]/26/2018 Performed By: #### E GFR ####[address] [phone] Progress Noteon 02-19-2018 Photo Lab Technician Authentication Interface Message Text Patient ID: Eb Hui is a 18 y.o. female. Her chief complaint(s)include: Pharyngitis (headache)Assessment1. Infectious mononucleosis-like syndrome, chronic2. Sore throat3. Acute pharyngitis, unspecified etiology4. MononucleosisPlanCifrankoa was seen today for pharyngitis.Diagnoses and all orders for this visit:Infectious mononucleosis-like syndrome, chronic- AMB Referral To Infectious Disease; FutureSore throat- POCT rapid strep A antigenAcute pharyngitis, unspecified etiologyMononucleosisPos mono spotPt states she has had Thurston before and that this would be the [...] 71.5 kg, last menstrual period 01/21/2018. Normal [facility] Progress Noteon 06-03-2017 Photo Lab Technician Authentication Interface Message Text Patient ID: Eb [...] C (89 F), weight 73.4 kg. Normal [facility] Progress Noteon 03-21-2017 Photo Lab Technician Authentication Interface Message Text Patient ID: Eb [...] 118, height 166.5 cm, weight 72.6kg. Normal [facility] Progress Noteon 03-12-2017 Photo Lab Technician Authentication Interface Message Text Patient ID: Eb Hui is a 17 y.o. female. Her chief complaint(s)include: Fainting (at work; 1 hour ago, headache now).Assessment:1. Syncope, unspecified syncope typePlan:Eb was seen today for fainting.Diagnoses and all orders for this visit:Syncope, unspecified syncope typeRecommended eating breakfast containing fiber/protein such as oatmeal, eggs,malaysian yogurt, drinking plenty of clear fluids/gatorade, eating [...] She is alert.Skin: Skin is warm. Normal [facility] Influenza virus A and B and SARS-CoV-2 (COVID-19) Ag panel - Upper respiratory specim SARS-CoV-2 (COVID-19) RNA SOL+probe Ql (Resp) [facility] Work Phone: Vital Signs Date Time Vital Sign Value Performing Clinician Faci lity 05-19-2025 07:12-0400 Body height 167.64 cm Petty Benjesús EXTRUSION UTILITY WORKER-C Work Phone: [facility] 05-19-2025 07:12-0400 Body mass index (BMI) [Ratio] 25.7 kg/m2 Petty Contrerasjesús EXTRUSION UTILITY WORKER-C Work Phone: [facility] 05-19-2025 07:12-0400 Body temperature 98.4 [degF] Petty Benjesús EXTRUSION UTILITY WORKER-C Work Phone: [facility] 05-19-2025 07:12-0400 Body weight 72.12 kg Petty Benjesús EXTRUSION UTILITY WORKER-C Work Phone: [facility] 05-19-2025 07:12-0400 Diastolic blood pressure 75 mm[Hg] Petty Benjesús EXTRUSION UTILITY WORKER-C Work Phone: [facility] 05-19-2025 07:12-0400 Heart rate 78 /min Petty Benjesús EXTRUSION UTILITY WORKER-C Work Phone: [facility] 05-19-2025 07:12-0400 SaO2% (BldA) [Mass fraction] 97 % Petty Ungerer EXTRUSION UTILITY WORKER-C Work Phone: [facility] 05-19-2025 07:12-0400 Systolic blood pressure 110 mm[Hg] Petty Ungerer EXTRUSION UTILITY WORKER-C Work Phone: [facility] 04-08-2025 00:26-0400 Body temperature 98.6 [degF] Petty Ungerer EXTRUSION UTILITY WORKER-C Work Phone: [facility] 04-08-2025 00:26-0400 Diastolic blood pressure 63 mm[Hg] Petty Ungerer EXTRUSION UTILITY WORKER-C Work Phone: [facility] 04-08-2025 00:26-0400 Heart rate 86 /min Petty Ungerer EXTRUSION UTILITY WORKER-C Work Phone: [facility] 04-08-2025 00:26-0400 Respiratory rate 17 /min Petty Ungerer EXTRUSION UTILITY WORKER-C Work Phone: [facility] 04-08-2025 00:26-0400 SaO2% (BldA) [Mass fraction] 98 % Petty Ungerer EXTRUSION UTILITY WORKER-C Work Phone: [facility] 04-08-2025 00:26-0400 Systolic blood pressure 116 mm[Hg] Petty Ungerer EXTRUSION UTILITY WORKER-C Work Phone: [facility] 04-07-2025 23:12-0400 Body height 167.64 cm Petty Ungerer EXTRUSION UTILITY WORKER-C Work Phone: [facility] 04-07-2025 23:12-0400 Body mass index (BMI) [Ratio] 25.5 kg/m2 Petty Ungerer EXTRUSION UTILITY WORKER-C Work Phone: [facility] 04-07-2025 23:12-0400 Body weight 71.8 kg Petty Ungerer EXTRUSION UTILITY WORKER-C Work Phone: [facility] 03-01-2025 14:24-0400 Body height 167.64 cm Petty Ungerer EXTRUSION UTILITY WORKER-C Work Phone: [facility] 03-01-2025 14:24-0400 Body mass index (BMI) [Ratio] 24.8 kg/m2 Petty Ungerer EXTRUSION UTILITY WORKER-C Work Phone: [facility] 03-01-2025 14:24-0400 Body temperature 98.6 [degF] Petty Ungerer EXTRUSION UTILITY WORKER-C Work Phone: [facility] 03-01-2025 14:24-0400 Body weight 69.85 kg Petty Ungerer EXTRUSION UTILITY WORKER-C Work Phone: [facility] 03-01-2025 14:24-0400 Diastolic blood pressure 82 mm[Hg] Petty Ungerer EXTRUSION UTILITY WORKER-C Work Phone: [facility] 03-01-2025 14:24-0400 Heart rate 90 /min Petty Ungerer EXTRUSION UTILITY WORKER-C Work Phone: [facility] 03-01-2025 14:24-0400 Systolic blood pressure 122 mm[Hg] Petty Ungerer EXTRUSION UTILITY WORKER-C Work Phone: [facility] 02-23-2025 06:20-0400 Body height 167.64 cm Petty Ungerer EXTRUSION UTILITY WORKER-C Work Phone: [facility] 02-23-2025 06:20-0400 Body mass index (BMI) [Ratio] 25 kg/m2 Petty Ungerer EXTRUSION UTILITY WORKER-C Work Phone: [facility] 02-23-2025 06:20-0400 Body temperature 98.2 [degF] Petty Ungerer EXTRUSION UTILITY WORKER-C Work Phone: [facility] 02-23-2025 06:20-0400 Body weight 70.3 kg Petty Ungerer EXTRUSION UTILITY WORKER-C Work Phone: [facility] 02-23-2025 06:20-0400 Diastolic blood pressure 76 mm[Hg] Petty Ungerer EXTRUSION UTILITY WORKER-C Work Phone: [facility] 02-23-2025 06:20-0400 Heart rate 76 /min Petty Contreraserer EXTRUSION UTILITY WORKER-C Work Phone: [facility] 02-23-2025 06:20-0400 SaO2% (BldA) [Mass fraction] 100 % Petty Ungerer EXTRUSION UTILITY WORKER-C Work Phone: [facility] 02-23-2025 06:20-0400 Systolic blood pressure 109 mm[Hg] Petty Ungerer EXTRUSION UTILITY WORKER-C Work Phone: [facility] 12-17-2024 10:45-0400 Body temperature 97.8 [degF] EXTRUSION UTILITY WORKER. Petty Ungerer EXTRUSION UTILITY WORKER-C Work Phone: [facility] 12-17-2024 10:45-0400 Diastolic blood pressure 59 mm[Hg] EXTRUSION UTILITY WORKER. Petty Ungerer EXTRUSION UTILITY WORKER-C Work Phone: [facility] 12-17-2024 10:45-0400 Heart rate 69 /min EXTRUSION UTILITY WORKER. Petty Ungerer EXTRUSION UTILITY WORKER-C Work Phone: [facility] 12-17-2024 10:45-0400 Respiratory rate 16 /min EXTRUSION UTILITY WORKER. Petty Ungerer EXTRUSION UTILITY WORKER-C Work Phone: [facility] 12-17-2024 10:45-0400 SaO2% (BldA) [Mass fraction] 100 % EXTRUSION UTILITY WORKER. Petty Ungerer EXTRUSION UTILITY WORKER-C Work Phone: [facility] 12-17-2024 10:45-0400 Systolic blood pressure 111 mm[Hg] EXTRUSION UTILITY WORKER. Petty Ungerer EXTRUSION UTILITY WORKER-C Work Phone: [facility] 12-17-2024 08:37-0400 Body height 167.64 cm EXTRUSION UTILITY WORKER. Petty Ungerer EXTRUSION UTILITY WORKER-C Work Phone: [facility] 12-17-2024 08:37-0400 Body mass index (BMI) [Ratio] 24.5 kg/m2 EXTRUSION UTILITY WORKER. Petty Ungerer EXTRUSION UTILITY WORKER-C Work Phone: [facility] 12-17-2024 08:37-0400 Body weight 68.8 kg BHUPENDRA. Petty MUNSON Work Phone: [facility] 12-16-2024 13:31-0400 Body height 166.2 cm Nella Hood MD Work Phone: [facility] 12-16-2024 13:31-0400 Body mass index (BMI) [Ratio] 25.03 kg/m2 Nella Hood MD Work Phone: [facility] 12-16-2024 13:31-0400 Body weight 69.13 kg Nella Hood MD Work Phone: [facility] 12-16-2024 13:31-0400 Diastolic blood pressure 68 mm[Hg] Nella Hood MD Work Phone: [facility] 12-16-2024 13:31-0400 Heart rate 76 /min Nella Hood MD Work Phone: [facility] 12-16-2024 13:31-0400 Respiratory rate 16 /min Nella Hood MD Work Phone: [facility] 12-16-2024 13:31-0400 Systolic blood pressure 112 mm[Hg] Nella Hood MD Work Phone: [facility] 10-26-2024 15:01-0500 Body mass index (BMI) [Ratio] 24.55 kg/m2 Yordan Smalls APRN.BUCKET TURNER Work Phone: [facility] 10-26-2024 15:01-0500 Body temperature 98.2 [degF] Yordan Smalls APRN.BUCKET TURNER Work Phone: [facility] 10-26-2024 15:01-0500 Body weight 71.1 kg Yordan Smalls APRN.BUCKET TURNER Work Phone: [facility] 10-26-2024 15:01-0500 Diastolic blood pressure 72 mm[Hg] Yordan Smalls APRN.BUCKET TURNER Work Phone: [facility] 10-26-2024 15:01-0500 Heart rate 60 /min Yordan Smalls APRN.BUCKET TURNER Work Phone: [facility] 10-26-2024 15:01-0500 Respiratory rate 16 /min Yordan Smalls APRN.BUCKET TURNER Work Phone: [facility] 10-26-2024 15:01-0500 SaO2% (BldA) [Mass fraction] 98 % Yordan Smalls APRN.BUCKET TURNER Work Phone: [facility] 10-26-2024 15:01-0500 Systolic blood pressure 122 mm[Hg] Yordan Smalls APRN.BUCKET TURNER Work Phone: [facility] 10-26-2024 08:12-0500 Body height 170.2 cm Petty Rubalcava NETWORK SECURITY ANALYST.CNM Work Phone: [facility] 10-26-2024 08:12-0500 Body mass index (BMI) [Ratio] 24.28 kg/m2 Petty Rubalcava NETWORK SECURITY ANALYST.CNM Work Phone: [facility] 10-26-2024 08:12-0500 Body weight 70.31 kg Petty Rubalcava NETWORK SECURITY ANALYST.CNM Work Phone: [facility] 10-26-2024 08:12-0500 Diastolic blood pressure 70 mm[Hg] Petty Rubalcava NETWORK SECURITY ANALYST.CNM Work Phone: [facility] 10-26-2024 08:12-0500 Systolic blood pressure 112 mm[Hg] Petty Rubalcava NETWORK SECURITY ANALYST.CNM Work Phone: [facility] 08-07-2024 11:34-0500 Body mass index (BMI) [Ratio] 24.59 kg/m2 Lynn Smalls MD Work Phone: [facility] 08-07-2024 11:34-0500 Body weight 71.22 kg Lynn Smalls MD Work Phone: [facility] 08-07-2024 11:34-0500 Diastolic blood pressure 82 mm[Hg] Lynn Smalls MD Work Phone: [facility] 08-07-2024 11:34-0500 Systolic blood pressure 124 mm[Hg] Lynn Smalls MD Work Phone: [facility] 12-23-2023 17:47-0400 Body temperature 99 [degF] Petty Uriostegui NETWORK SECURITY ANALYST.BUCKET TURNER Work Phone: [facility] 12-23-2023 17:47-0400 Body weight 76 kg Petty Uriostegui NETWORK SECURITY ANALYST.BUCKET TURNER Work Phone: [facility] 12-23-2023 17:47-0400 Diastolic blood pressure 78 mm[Hg] Petty Uriostegui NETWORK SECURITY ANALYST.BUCKET TURNER Work Phone: [facility] 12-23-2023 17:47-0400 Heart rate 81 /min Petty Uriostegui NETWORK SECURITY ANALYST.BUCKET TURNER Work Phone: [facility] 12-23-2023 17:47-0400 Respiratory rate 21 /min Petty Uriostegui NETWORK SECURITY ANALYST.BUCKET TURNER Work Phone: [facility] 12-23-2023 17:47-0400 SaO2% (BldA) [Mass fraction] 99 % Petty Uriostegui NETWORK SECURITY ANALYST.BUCKET TURNER Work Phone: [facility] 12-23-2023 17:47-0400 Systolic blood pressure 118 mm[Hg] Petty Uriostegui NETWORK SECURITY ANALYST.BUCKET TURNER Work Phone: [facility] 11-03-2023 13:38-0500 Body temperature 99.1 [degF] Ricardo Campuzano NETWORK SECURITY ANALYST.BUCKET TURNER Work Phone: [facility] 11-03-2023 13:38-0500 Body weight 73.66 kg Ricardo Campuzano NETWORK SECURITY ANALYST.BUCKET TURNER Work Phone: [facility] 11-03-2023 13:38-0500 Diastolic blood pressure 88 mm[Hg] Ricardo Campuzano NETWORK SECURITY ANALYST.BUCKET TURNER Work Phone: [facility] 11-03-2023 13:38-0500 Heart rate 105 /min Ricardo Justen NETWORK SECURITY ANALYST.BUCKET TURNER Work Phone: [facility] 11-03-2023 13:38-0500 Respiratory rate 21 /min Ricardo Justen NETWORK SECURITY ANALYST.BUCKET TURNER Work Phone: [facility] 11-03-2023 13:38-0500 SaO2% (BldA) [Mass fraction] 98 % Ricardo Justen NETWORK SECURITY ANALYST.BUCKET TURNER Work Phone: [facility] 11-03-2023 13:38-0500 Systolic blood pressure 120 mm[Hg] Ricardo Justen NETWORK SECURITY ANALYST.BUCKET TURNER Work Phone: [facility] 08-21-2023 19:13-0500 Body temperature 98.1 [degF] Leif Shellibury NETWORK SECURITY ANALYST.BUCKET TURNER Work Phone: [facility] 08-21-2023 19:13-0500 Body weight 74.21 kg [facility] NETWORK SECURITY ANALYST.BUCKET TURNER Work Phone: [facility] 08-21-2023 19:13-0500 Diastolic blood pressure 74 mm[Hg] Leif Pendlebury NETWORK SECURITY ANALYST.BUCKET TURNER Work Phone: [facility] 08-21-2023 19:13-0500 Heart rate 100 /min Leif Marquesbury NETWORK SECURITY ANALYST.BUCKET TURNER Work Phone: [facility] 08-21-2023 19:13-0500 Respiratory rate 21 /min Leif Shellibury NETWORK SECURITY ANALYST.BUCKET TURNER Work Phone: [facility] 08-21-2023 19:13-0500 SaO2% (BldA) [Mass fraction] 98 % [facility] NETWORK SECURITY ANALYST.BUCKET TURNER Work Phone: [facility] 08-21-2023 19:13-0500 Systolic blood pressure 110 mm[Hg] Leif Pendlebury NETWORK SECURITY ANALYST.BUCKET TURNER Work Phone: [facility] 07-28-2023 21:52-0500 Body height 167.64 cm No Primary Care Physician [facility] 07-28-2023 21:52-0500 Body mass index (BMI) [Ratio] 25.8 kg/m2 No Primary Care Physician [facility] 07-28-2023 21:52-0500 Body temperature 97.8 [degF] No Primary Care Physician [facility] 07-28-2023 21:52-0500 Body weight 72.57 kg No Primary Care Physician [facility] 07-28-2023 21:52-0500 Diastolic blood pressure 95 mm[Hg] No Primary Care Physician [facility] 07-28-2023 21:52-0500 Heart rate 71 /min No Primary Care Physician [facility] 07-28-2023 21:52-0500 Respiratory rate 16 /min No Primary Care Physician [facility] 07-28-2023 21:52-0500 SaO2% (BldA) [Mass fraction] 99 % No Primary Care Physician [facility] 07-28-2023 21:52-0500 Systolic blood pressure 138 mm[Hg] No Primary Care Physician [facility] 07-16-2023 19:25-0400 Body temperature 98.6 [degF] Liza Athy PA-C Work Phone: [facility] 07-16-2023 19:25-0400 Body weight 74.84 kg Liza Athy PA-C Work Phone: [facility] 07-16-2023 19:25-0400 Diastolic blood pressure 80 mm[Hg] Liza Athy PA-C Work Phone: [facility] 07-16-2023 19:25-0400 Heart rate 98 /min Liza Athy PA-C Work Phone: [facility] 07-16-2023 19:25-0400 Respiratory rate 16 /min Liza Athy PA-C Work Phone: [facility] 07-16-2023 19:25-0400 SaO2% (BldA) [Mass fraction] 99 % Liza Athy PA-C Work Phone: [facility] 07-16-2023 19:25-0400 Systolic blood pressure 122 mm[Hg] Liza Athy PA-C Work Phone: [facility] 06-12-2023 09:10-0400 Diastolic blood pressure 88 mm[Hg] No Primary Care Physician [facility] 06-12-2023 09:10-0400 Heart rate 74 /min No Primary Care Physician [facility] 06-12-2023 09:10-0400 Respiratory rate 16 /min No Primary Care Physician [facility] 06-12-2023 09:10-0400 SaO2% (BldA) [Mass fraction] 99 % No Primary Care Physician [facility] 06-12-2023 09:10-0400 Systolic blood pressure 132 mm[Hg] No Primary Care Physician [facility] 06-12-2023 06:46-0400 Body height 167.64 cm No Primary Care Physician [facility] 06-12-2023 06:46-0400 Body mass index (BMI) [Ratio] 26.4 kg/m2 No Primary Care Physician [facility] 06-12-2023 06:46-0400 Body temperature 96.6 [degF] No Primary Care Physician [facility] 06-12-2023 06:46-0400 Body weight 74.4 kg No Primary Care Physician [facility] 04-23-2023 14:52-0400 Body temperature 97.7 [degF] Krislyn Aberegg PA Work Phone: [facility] 04-23-2023 14:52-0400 Body weight 72.58 kg Krislyn Aberegg PA Work Phone: [facility] 04-23-2023 14:52-0400 Diastolic blood pressure 62 mm[Hg] Krislyn Aberegg PA Work Phone: [facility] 04-23-2023 14:52-0400 Heart rate 72 /min Krislyn Aberegg PA Work Phone: [facility] 04-23-2023 14:52-0400 Respiratory rate 18 /min Krislyn Aberegg PA Work Phone: [facility] 04-23-2023 14:52-0400 Systolic blood pressure 110 mm[Hg] Krislyn Aberegg PA Work Phone: [facility] 03-03-2023 11:56-0400 Body temperature 97.8 [degF] [facility] 03-03-2023 11:56-0400 Diastolic blood pressure 78 mm[Hg] [facility] 03-03-2023 11:56-0400 Heart rate 78 /min [facility] 03-03-2023 11:56-0400 Respiratory rate 14 /min [facility] 03-03-2023 11:56-0400 SaO2% (BldA) [Mass fraction] 100 % [facility] 03-03-2023 11:56-0400 Systolic blood pressure 118 mm[Hg] [facility] 03-03-2023 08:40-0400 Body height 167.64 cm [facility] 03-03-2023 08:40-0400 Body mass index (BMI) [Ratio] 25.8 kg/m2 [facility] 03-03-2023 08:40-0400 Body weight 72.57 kg [facility] 02-21-2023 15:05-0400 Body temperature 98.01 [degF] Krislyn Aberegg PA Work Phone: [facility] 02-21-2023 15:05-0400 Body weight 72.94 kg Krislyn Aberegg PA Work Phone: [facility] 02-21-2023 15:05-0400 Diastolic blood pressure 86 mm[Hg] Krislyn Aberegg PA Work Phone: [facility] 02-21-2023 15:05-0400 Heart rate 98 /min Krislyn Aberegg PA Work Phone: [facility] 02-21-2023 15:05-0400 Respiratory rate 18 /min Krislyn Aberegg PA Work Phone: [facility] 02-21-2023 15:05-0400 SaO2% (BldA) [Mass fraction] 97 % Krislyn Aberegg PA Work Phone: [facility] 02-21-2023 15:05-0400 Systolic blood pressure 122 mm[Hg] Krislyn Aberegg PA Work Phone: [facility] 01-03-2023 10:56-0400 Body height 170.2 cm Pac 1 Work Phone: [facility] 01-03-2023 10:56-0400 Body weight 75.3 kg Pac 1 Work Phone: [facility] 01-03-2023 10:56-0400 Respiratory rate 16 /min Pac 1 Work Phone: [facility] 01-03-2023 10:56-0400 SaO2% (BldA) [Mass fraction] 97 % Pac 1 Work Phone: [facility] 09-16-2022 21:13-0500 Body height 172.72 cm [facility] Work Phone: 09-16-2022 21:13-0500 Body mass index (BMI) [Ratio] 24.6 kg/m2 [facility] Work Phone: 09-16-2022 21:13-0500 Body temperature 98.2 [degF] [facility] Work Phone: 09-16-2022 21:13-0500 Body weight 73.48 kg [facility] Work Phone: 09-16-2022 21:13-0500 Diastolic blood pressure 73 mm[Hg] [facility] Work Phone: 09-16-2022 21:13-0500 Heart rate 119 /min [facility] Work Phone: 09-16-2022 21:13-0500 Respiratory rate 16 /min [facility] Work Phone: 09-16-2022 21:13-0500 SaO2% (BldA) [Mass fraction] 100 % [facility] Work Phone: 09-16-2022 21:13-0500 Systolic blood pressure 124 mm[Hg] [facility] Work Phone: 01-02-2022 12:13-0400 Body weight 79.83 kg Roberta Guthrie MD Work Phone: [facility] 12-06-2020 11:00-0400 Body Temperature 97.3 [degF] Inderpartap [...] Date Encounter Type Care Provider Facility Start: 05-19-2025 End: 05-19-2025 Patient encounter procedure Tomás Tidwell [facility] Work Phone: Start: 05-19-2025 End: 05-19-2025 ambulatory Petty Vasquez EXTRUSION UTILITY WORKER-C Work Phone: [facility] Start: 05-12-2025 End: 05-12-2025 ambulatory MELQUIADES QUINTANILLA [facility] Start: 04-07-2025 End: 04-08-2025 Emergency department patient visit Petty Vasquez EXTRUSION UTILITY WORKER-C Work Phone: -Emergency Department Work Phone: Start: 03-01-2025 End: 03-01-2025 Patient encounter procedure Tomás Yaw [facility] Work Phone: Start: 03-01-2025 End: 03-01-2025 ambulatory Petty Vasquez EXTRUSION UTILITY WORKER-C Work Phone: [facility] Work Phone: Start: 02-23-2025 End: 02-23-2025 Patient encounter procedure Tomás Tidwell [place] [facility] Work Phone: Start: 02-23-2025 End: 02-23-2025 ambulatory Petty Vasquez EXTRUSION UTILITY WORKER-C Work Phone: [facility] Work Phone: Start: 02-09-2025 End: 02-09-2025 ambulatory HEATHER PETERSEN [facility] Start: 01-12-2025 End: 01-12-2025 ambulatory MELQUIADES ELLIE QUINTANILLA [facility] Start: 12-23-2024 End: 12-24-2024 Telephone encounter Nella Hood MD Work Phone: OB/Gynecology Comment on above: Results Start: 12-17-2024 End: 12-17-2024 Admission to same day surgery center Dr Nella Ward MD [facility] Start: 12-17-2024 End: 12-17-2024 ambulatory EXTRUSION UTILITY WORKER. Petty Vasquez EXTRUSION UTILITY WORKER-C Work Phone: [facility] Work Phone: Start: 12-16-2024 End: 12-16-2024 ambulatory NELLA HOOD Facility:[facility] Start: 12-16-2024 End: 12-16-2024 Patient encounter procedure Nella Hood MD Work Phone: OB/Gynecology Comment on above: Abnormal uterine ble eding (AUB) (Primary Dx); Endometrial polyp; Pre-op exam Start: 12-16-2024 End: 12-16-2024 Preprocedural examination done Nella Hood MD Work Phone: [facility] Start: 11-17-2024 End: 12-04-2024 E-mail encounter from caregiver Petty Rubalcava APRN.IRA Work Phone: OB/Gynecology Start: 11-17-2024 End: 12-04-2024 Follow-up encounter Petty Rubalcava APRNWandaIRA Work Phone: OB/Gynecology Comment on above: Follow up Start: 11-04-2024 End: 11-04-2024 ambulatory Petty Rubalcava APRNWandaCNYessenia Work Phone: OB/Gynecology Comment on above: Endometrial [...] Mob OB/Gynecology Start: 10-29-2024 End: 10-29-2024 ambulatory Specialty Sales Representative [employer] Work Phone: OB/Gynecology Comment on above: Arrived Start: 10-27-2024 End: 10-27-2024 Telephone encounter Yordan Smalls APRN.BUCKET TURNER Work Phone: [facility] Comment on above: Results Start: 10-26-2024 End: 10-26-2024 ambulatory MELQUIADES QUINTANILLA Facility:[facility] Start: 10-26-2024 End: 10-26-2024 Patient encounter procedure Yordan Smalls APRN.BUCKET TURNER Work Phone: [facility] Comment on above: Urinary frequency (P rimary Dx); Unprotected sex Start: 10-26-2024 End: 10-26-2024 ambulatory MELQUIADES QUINTANILLA Facility:[facility] Start: 10-26-2024 End: 10-26-2024 ambulatory MELQUIADES QUINTANILLA Facility:[facility] Start: 10-26-2024 End: 10-26-2024 Patient encounter procedure Petty Rubalcava APRN.CNM Work Phone: OB/Gynecology Comment on above: Encounter for gyneco logical examination (general) (routine) with abnormal findings (Primary Dx); Screening for cervical cancer; Encounter for screening for human papillomavirus (HPV); Screening for STDs (sexually transmitted diseases); Dysuria; Abnormal uterine bleeding (AUB); Smoker; HSV-2 seropositive Start: 10-26-2024 End: 10-26-2024 Patient encounter status Petty Rubalcava APRN.CNM Work Phone: [facility] Start: 08-07-2024 End: 08-07-2024 ambulatory MELQUIADES QUINTANILLA Facility:[facility] Start: 08-07-2024 End: 08-07-2024 Patient encounter procedure Lynn Smalls MD Work Phone: OB/Gynecology Comment on above: Fibrocystic breast c hanges of both breasts (Primary Dx) Start: 07-02-2024 End: 07-02-2024 ambulatory Petty Vasquez [place] Start: 12-24-2023 Telephone encounter Willow Faustin APRN.BUCKET TURNER Work Phone: [facility] Comment on above: Results Start: 12-23-2023 End: 12-23-2023 Patient encounter procedure Petty Uriostegui APRN.BUCKET TURNER Work Phone: [facility] Comment on above: Encounter for sexual ly transmitted disease counseling (Primary Dx); Dysuria; Vaginal discharge Start: 11-11-2023 Telephone encounter Aliya Mcdaniels MD Work Phone: [facility] Comment on above: Appointment Start: 11-03-2023 End: 11-03-2023 Patient encounter procedure Ricardo Campuzano APRN.BUCKET TURNER Work Phone: [facility] Comment on above: Lower resp. tract in fection (Primary Dx) Start: 08-21-2023 End: 08-21-2023 Office outpatient visit 25 minutes Leif Sahu APRN.BUCKET TURNER Work Phone: [facility] Comment on above: Lower respiratory tr act infection (Primary Dx) Start: 07-28-2023 End: 07-28-2023 Emergency department patient visit [facility] Start: 07-16-2023 End: 07-16-2023 Subsequent hospital visit by physician Xr [facility] Work Phone: Radiology Comment on above: Hemoptysis [R04.2] Start: 07-16-2023 End: 07-16-2023 Patient encounter procedure Liza Friedman PA-C Work Phone: [facility] Comment on above: Viral illness (Prima ry Dx); Hemoptysis Start: 07-11-2023 Telephone encounter Yordan Smalls APRN.BUCKET TURNER Work Phone: [facility] Comment on above: Results Start: 06-13-2023 Telephone encounter Carmen Parker Work Phone: Infectious Disease Comment on above: Education Of Patient /family (HIV PrEP outreach) Start: 06-12-2023 End: 06-12-2023 Emergency department patient visit No [facility] Start: 05-23-2023 Telephone encounter Willow Faustin APRN.BUCKET TURNER Work Phone: [facility] Comment on above: Results Start: 05-16-2023 End: 05-16-2023 Patient encounter procedure No Primary Care Physician [facility] Work Phone: Start: 04-26-2023 Telephone encounter Aliya Mcdaniels MD Work Phone: [facility] Comment on above: Appointment (Missed Appointment.) Start: 04-24-2023 Telephone encounter Elizabeth BRANCH Work Phone: [facility] Comment on above: Results Start: 04-23-2023 End: 04-23-2023 Patient encounter procedure Elizabeth BRANCH Work Phone: [facility] Comment on above: Vaginal discharge (P rimary Dx) Start: 04-23-2023 Registered Recurring No Primar y Care Physician Employee Health-Employee Health Start: 03-03-2023 End: 03-03-2023 Emergency department patient visit [facility] Work Phone: Start: 02-22-2023 Telephone encounter Willow Vencespippa Faustin APRN.CNP Work Phone: [facility] Comment on above: Results script not at pharma [facility] Start: 02-21-2023 End: 02-21-2023 Patient encounter procedure Elizabeth BRANCH Work Phone: [facility] Comment on above: Burning with urinati on (Primary Dx); Screening for STD (sexually transmitted disease); Vaginal discharge Start: 02-01-2023 ambulatory Aliya Mcdaniels MD Work Phone: [facility] Comment on above: bleomycin side effec ts Pruritus (Primary Dx ) Start: 01-03-2023 End: 01-03-2023 ambulatory ALIYA MCDANIELS Facility:[facility] Start: 01-03-2023 [facility] Start: 01-03-2023 End: 01-03-2023 Admission to [place] [id number] Work Phone: [facility] Start: 01-03-2023 End: 01-03-2023 ambulatory [place] [id number] Work Phone: Pre Anesthesia Comment on above: Pre-op evaluation (P rimary Dx); AVM (arteriovenous malformation); Mild major depression (HCC); Smoker; Frequent UTI; History of scoliosis Start: 01-03-2023 End: 01-03-2023 Preprocedural examination done [place] [id number] Work Phone: Pre Anesthesia Start: 12-19-[address] [facility] Aliya Mcdaniels MD Work Phone: Endovascular Center Comment on above: Schedule Surgery Start: 12-19-2022 ambulatory Aliya Mcdaniels MD Work Phone: [facility] Start: 11-28-2022 End: 11-28-2022 ambulatory Ricco Mullins MD Work Phone: Otolaryngology Comment on above: Oropharyngeal lesion (Primary Dx) Start: 11-28-2022 End: 11-28-2022 Telemedicine consultation with patient Ricco Mullins MD Work Phone: [facility] Start: 11-16-2022 ambulatory Ricco sawyer MD Work Phone: Otolaryngology Comment on above: Start: 11-08-2022 Telephone encounter Shazia keith MD Work Phone: OB/Gynecology Comment on above: Positive home UPT Start: 09-16-2022 End: 09-16-2022 Emergency department patient visit [facility] Start: 02-16-2022 Telephone encounter Nella Hood MD Work Phone: OB/Gynecology Comment on above: Vaginal Problem Start: 01-07-2022 Refill Roberta gonsales MD Work Phone: OB/Gynecology Comment on above: Refill Request Start: 01-03-2022 Telephone encounter Roberta Guthrie MD Work Phone: OB/Gynecology Comment on above: Results Start: 01-02-2022 E-mail encounter fro m caregiver [facility] Provider [facility] Start: 01-02-2022 End: 01-02-2022 Patient encounter procedure Roberta Guthrie MD Work Phone: OB/Gynecology Comment on above: Vaginal irritation ( Primary Dx); Irritant contact dermatitis, unspecified trigger Appointment 01-09-22 at 9:00 am Start: 10-04-2021 ambulatory DOMENICA KRISHNAN Facility: [facility] Start: 09-28-2021 ambulatory DIPAK ROSE Facility:[facility] Start: 09-19-2021 ambulatory DIPAK ROSE Facility:[facility] Start: 01-10-2021 End: 01-10-2021 Subsequent hospital visit by physician Kelsy Hugh [facility] Leeanne Work Phone: Radiology Comment on above: Cough [R05] Start: 12-06-2020 End: 12-06-2020 Evaluation and management of inpatient Inderdorysap Ramo Ortega Work Phone: [facility] Start: 05-07-2018 End: 05-07-2018 Patient encounter [facility] Start: 02-26-2018 End: 02-26-2018 Ambulatory CARLOS ALBERTO [place] [facility] Start: 02-26-2018 End: 02-28-2018 Evaluation and management of inpatient CAROLANN [facility] Start: 02-19-2018 End: 02-19-[address] [facility] Start: 06-03-2017 End: 06-03-[address] [facility] Start: 03-21-2017 End: 03-21-[address] [facility] Start: 03-12-2017 End: 03-12-2017 Ambulatory EUNICE Casas GEETA [facility] Procedures Date Procedure Procedure Detail Performing Clinician Start: 12-17-2024 Hysteroscopy EXTRUSION UTILITY WORKER. Michael Vasquez EXTRUSION UTILITY WORKER-C Work Phone: Start: 12-17-2024 Estimated creatinine clearance Petty Vasquez EXTRUSION UTILITY WORKER-C Work Phone: Start: 10-29-2024 Us pelvic nonobstetr ic real-time image complete Petty Rubalcava NETWORK SECURITY ANALYST.CNM Work Phone: Start: 10-26-2024 Urnls dip stick/tabl et rgnt auto w/o microscopy Yordan Smalls NETWORK SECURITY ANALYST.BUCKET TURNER Work Phone: Start: 12-23-2023 Urnls dip stick/tabl et rgnt auto w/o microscopy Petty Uriostegui NETWORK SECURITY ANALYST.BUCKET TURNER Work Phone: Start: 07-16-2023 Radiologic exam ches t 2 views Liza Friedman PA-C Work Phone: Start: 07-16-2023 STREP A [...] stick/tablet rgnt auto w/o microscopy Willow Jacinto NETWORK SECURITY ANALYST.BUCKET TURNER Work Phone: Start: 01-10-2021 Radiologic exam ches [...] above: Performed By: #### T &S #### [place] [id number] SARS-CoV-2 & FLU Ant igen (Rapid) Plan of Treatment Date Care Activity Detail Author Start: 06-02-2029 Urine microalbumin profile [facility] Start: 10-26-2027 Screening for malign ant neoplasm of cervix Cervical Cancer Screening [facility] Start: 12-22-2024 GC (Gonorrhea) Scree chloé () GC (Gonorrhea) Screening () [facility] Start: 12-22-2024 Screening for Chlamy jesu trachomatis Chlamydia Screening () [facility] Start: 12-17-2024 Anes hysteroscopy&/hysterosal pingography w/bx ANESTH HYSTEROSCOPE/GRAPH [facility] Start: 12-17-2024 Hysteroscopy bx endometrium&/polypc w/wo d&c HYSTEROSCOPY BIOPSY [facility] Start: 12-17-2024 Ambulation without limitation [facility] Start: 12-17-2024 Medical regimen orde rs management [facility] Start: 12-17-[address] [facility] Start: 12-17-2024 Patient discharge [facility] Start: 12-17-2024 Procedure discontinued [facility] Start: 12-17-2024 Taking patient vital signs [facility] Start: 12-17-2024 Vital signs measurements [facility] Start: 12-17-2024 [facility] Start: 12-08-2024 End: 12-08-2024 Patient encounter procedure 12/08/2024 8:40 AM EDT Office Visit OB/Gynecology [address] [place], [place] [id number] Nella John MD [address] [place] [address] surgery 12/17 OB/Gynecology Comment on above: surgery 12/17 Start: 11-17-2024 End: 11-17-2024 Follow-up encounter 11/17/2024 3:30 PM EST [facility] OB/Gynecology [address] [place] [address] Petty Rubalcava APRN.CN [address] [place] [address] 2 week follow up OB/Gynecology Comment on above: 2 week follow up Start: 11-13-2024 End: 11-13-2024 Patient encounter procedure 11/13/2024 8:00 AM EST Office Visit Urology [address] [place] [address] Catrachita Devlin PA [address] [place] [address] Dysuria [R30.0] Urology Comment on above: Dysuria [R30.0] Start: 11-04-2024 End: 11-04-2024 Follow-up encounter 11/04/2024 3:15 PM EST [facility] OB/Gynecology [address] [place] [address] Petty Rubalcava APRN.CN [address] [place] [address] 2 week follow up OB/Gynecology Comment on above: 2 week follow up Start: 10-29-2024 End: 10-29-2024 ambulatory 10/29/2024 2:00 PM EST Procedure OB/Gynecology [address] [place] [address] [facility] Specialty Sales Representative [facility] [address] [place] [address] Abnormal uterine bleeding (AUB) [N93.9] OB/Gynecology Comment on above: Abnormal uterine ble eding (AUB) [N93.9] Start: 10-26-2024 End: 01-25-2025 DHEA-S BLD [facility] Comment on above: Expected: 10/26/2024 , Expires: 01/25/2025 Start: 10-26-2024 End: 01-25-2025 Hemoglobin A1c in Blood [facility] Comment on above: Expected: 10/26/2024 , Expires: 01/25/2025 Start: 10-26-2024 End: 01-25-2025 Prolactin [Mass/volume] in Serum or Plasma [facility] Comment on above: Expected: 10/26/2024 , Expires: 01/25/2025 Start: 10-26-2024 End: 01-25-2025 TESTOSTERONE, FREE AND TOTAL, BY EQUILIBRIUM ULTRAFILTRATION MASS SPECTROMETRY [facility] Comment on above: Expected: 10/26/2024 , Expires: 01/25/2025 Start: 10-26-2024 End: 01-25-2025 Thyrotropin [Units/volume] in Serum or Plasma [facility] Comment on above: Expected: 10/26/2024 , Expires: 01/25/2025 Start: 10-26-2024 End: 10-26-2025 US Pelvis PELVIC US [facility] Anc Imaging Routine Abnormal uterine bleeding (AUB) Expected: 10/26/2024, Expires: 10/26/2025 [facility] Comment on above: Expected: 10/26/2024 , Expires: 10/26/2025 Start: 06-20-2024 Chlamydia Screening () Chlamydia Screening () [facility] Start: 06-20-2024 GC (Gonorrhea) Scree chloé (18) GC (Gonorrhea) Screening () [facility] Start: 06-20-2024 Screening for Chlamy jesu trachomatis Chlamydia Screening () [facility] Start: 05-24-2024 Covid-19 Vaccine ( season) Covid-19 Vaccine ( season) [facility] Start: 05-24-2024 Covid-19 Vaccine () Covid-19 Vaccine () [facility] Start: 05-24-2024 Influenza vaccination [facility] Start: 05-22-2024 CHLAMYDIA SCREENING (18-24) CHLAMYDIA SCREENING (18-24) [facility] Start: 05-22-2024 GC (GONORRHEA) SCREE CHLOÉ (18-24) GC (GONORRHEA) SCREENING (18-24) [facility] Start: 04-23-2024 CHLAMYDIA SCREENING (18-24) CHLAMYDIA SCREENING (18-24) [facility] Start: 04-23-2024 GC (GONORRHEA) SCREE CHLOÉ (18-24) GC (GONORRHEA) SCREENING (18-24) [facility] Start: 02-22-2024 CHLAMYDIA SCREENING (18-24) CHLAMYDIA SCREENING (18-24) [facility] Start: 02-22-2024 GC (GONORRHEA) SCREE CHLOÉ (18-24) GC (GONORRHEA) SCREENING (18-24) [facility] Start: 07-02-2023 CHLAMYDIA SCREENING (18-24) CHLAMYDIA SCREENING (18-24) [facility] Start: 07-02-2023 GC (GONORRHEA) SCREE CHLOÉ (18-24) GC (GONORRHEA) SCREENING (18-24) [facility] Start: 06-13-2023 End: 08-13-2023 HIV 1+2 Ab [Presence] in Serum or Plasma by Immunoassay HIV 1 2 COMBO(AG/AB),WITH REFLEX TO DIFFERENTIATION Lab Routine Screening for HIV (human immunodeficiency virus) Expected: 06/13/2023, Expires: 08/13/2023 [facility] Work Phone: Comment on above: Expected: 06/13/2023 , Expires: 08/13/2023 Start: 06-12-2023 CT angiography of ch est with contrast CTA Chest W/WO Contrast [facility] Start: 06-12-2023 CTA Chest vessels WO and W contrast IV [facility] Start: 06-12-2023 Blood chemistry [facility] Start: 06-12-2023 End: 06-12-2023 [facility] Start: 05-24-2023 Covid-19 Vaccine ( season) Covid-19 Vaccine () [facility] Start: 05-24-2023 Influenza vaccination [facility] Start: 01-02-2023 CHLAMYDIA SCREENING (18-24) CHLAMYDIA SCREENING (18-24) [facility] Start: 01-02-2023 GC (GONORRHEA) SCREE CHLOÉ (18-24) GC (GONORRHEA) SCREENING (18-24) [facility] Start: 12-20-2022 End: 02-19-2023 Basic metabolic 2000 panel - Serum or Plasma BASIC METABOLIC PNL Lab Routine AVM (arteriovenous malformation) Expected: 12/20/2022, Expires: 02/19/2023 [facility] Work Phone: Comment on above: Expected: 12/20/2022 , Expires: 02/19/2023 Start: 12-20-2022 End: 02-19-2023 CBC panel - Blood by Automated count CBC Lab Routine AVM (arteriovenous malformation) Expected: 12/20/2022, Expires: 02/19/2023 [facility] Work Phone: Comment on above: Expected: 12/20/2022 , Expires: 02/19/2023 Start: 12-20-2022 End: 02-19-2023 TYPE AND SCREEN,30 DAY TYPE AND SCREEN,30 DAY Blood Bank Routine AVM (arteriovenous malformation) Expected: 12/20/2022, Expires: 02/19/2023 [facility] Work Phone: Comment on above: Expected: 12/20/2022 , Expires: 02/19/2023 Start: 12-19-2022 End: 02-18-2023 CONFIRM BLOOD TYPE CONFIRM BLOOD TYPE Blood Bank Routine AVM (arteriovenous malformation) Expected: 12/19/2022, Expires: 02/18/2023 [facility] Work Phone: Comment on above: Expected: 12/19/2022 , Expires: 02/18/2023 Start: 11-08-2022 End: 01-08-2023 Choriogonadotropin.beta subunit [Units/volume] in Serum or Plasma HCG QUANTITATIVE Lab Routine Positive urine test Expected: 11/08/2022, Expires: 01/08/2023 [facility] Work Phone: Comment on above: Expected: 11/08/2022 , Expires: 01/08/2023 Start: 07-06-2022 CHLAMYDIA SCREENING (18-24) CHLAMYDIA SCREENING (18-24) [facility] Start: 07-06-2022 GC (GONORRHEA) SCREE CHLOÉ (18-24) GC (GONORRHEA) SCREENING (18-24) [facility] Start: 05-24-2022 Influenza vaccination [facility] Start: 01-02-2022 End: 03-04-2022 Trichomonas vaginalis Ag [Presence] in Genital specimen by Immunoassay TRICHOMONAS PREP/ANTIGEN Microbiology Routine Vaginal irritation Expected: 01/02/2022, Expires: 03/04/2022 [facility] Work Phone: Comment on above: Expected: 01/02/2022 , Expires: 03/04/2022 Start: 01-30-2021 PAP TESTING PAP TESTING [facility] Start: 01-30-2021 Screening for malign ant neoplasm of cervix [facility] Start: 05-24-2020 Influenza vaccination Flu vaccine (# 1) [facility] Work Phone: Start: 01-30-2019 Pneumococcal vaccination Pneum ococcal Vaccine (1 of 2 - PCV) [facility] Start: 01-30-2019 SHINGRIX VACCINE (1 of 2) SHINGRIX VACCINE (1 of 2) [facility] Start: 01-30-2018 Anxiety Screening Anxiety Screening [facility] Start: 2016 Meningococcal B Vacc ine: Consider Based On Risk (1 of 2 - Patient Seeks Protection) Meningococcal B Vaccine: Consider Based On Risk (1 of 2 - Patient Seeks Protection) [facility] Start: 2016 MENINGOCOCCAL B: Consider based on risk (1 of 2 - Patient Seeks Protection) MENINGOCOCCAL B: Consider based on risk (1 of 2 - Patient Seeks Protection) [facility] Start: 09-29-2014 HPV VACCINE (2 - 2-d ose series) HPV VACCINE (2 - 2-dose series) [facility] Start: 01-30-2014 PEDS TO ADULT TRANSI TION ANNUAL ASSESSMENT PEDS TO ADULT TRANSITION ANNUAL ASSESSMENT [facility] Start: 2012 Adult depression screening assessment DEPRESSION SCREENING [facility] Start: 2012 PEDS TO ADULT TRANSI TION INITIAL DISCUSSION PEDS TO ADULT TRANSITION INITIAL DISCUSSION [facility] Start: 01-30-2010 MENINGOCOCCAL B: Consider based on risk (1 of 2 - Risk Bexsero 2-dose series) MENINGOCOCCAL B: Consider based on risk (1 of 2 - Risk Bexsero 2-dose series) [facility] Start: 01-30-2006 PNEUMOCOCCAL (1 - PCV) PNEUMOCOCCAL (1 - PCV) [facility] Start: 01-30-2006 Pneumococcal vaccination [facility] Start: 01-30-2005 COVID-19 VACCINE (#1) COVID-19 VACCI NE (#1) [facility] Start: 01-30-2005 COVID-19 VACCINE (1) COVID-19 VACCIN E (1) [facility] Start: 2000 COVID-19 VACCINE (#1) COVID-19 VACCI NE (#1) [facility] Bacteria identified in Urine by Culture URINE CULTURE Microbiology Routine Burning with urination 02/21/2023 3:47 PM EDT [facility] Work Phone: Bacteria identified in Urine by Culture URINE CULTURE Microbiology Routine Dysuria 12/23/2023 6:20 PM EDT [facility] Work Phone: Bacteria identified in Urine by Culture BACTERIAL CULTURE, URINE Microbiology Routine Dysuria Ordered: 10/26/2024 [facility] Work Phone: Comment on above: Ordered: 10/26/2024 Bacteria identified in Urine by Culture BACTERIAL CULTURE, URINE Microbiology Routine Urinary frequency Ordered: 10/26/2024 [facility] Work Phone: Comment on above: Ordered: 10/26/2024 BACTERIAL VAGINOSIS AMPLIFICATION BACTERIAL VAGINOSIS AMPLIFICATION Lab Routine Screening for STD (sexually transmitted disease) Vaginal discharge 02/21/2023 3:46 PM EDT [facility] Work Phone: BACTERIAL VAGINOSIS NAAT BACTERI AL VAGINOSIS NAAT Lab Routine Dysuria Vaginal discharge Encounter for sexually transmitted disease counseling 12/23/2023 6:20 PM EDT [facility] Work Phone: BACTERIAL VAGINOSIS NAAT BACTERI AL VAGINOSIS NAAT Lab Routine Screening for STDs (sexually transmitted diseases) 10/26/2024 9:22 AM EST [facility] Basic metabolic 2000 panel Basic Metabolic Panel Lab Routine Daily until discontinued starting 12/06/2020, 1 completed [employer] Work Phone: Comment on above: Daily until disconti nued starting 12/06/2020, 1 completed RANCHO / TRICHOMONA S AMPLIFICATION RANCHO / TRICHOMONAS AMPLIFICATION Microbiology Routine Screening for STD (sexually transmitted disease) Vaginal discharge 02/21/2023 3:46 PM EDT [facility] Work Phone: RANCHO/TRICHOMONAS NAAT RANCHO /TRICHOMONAS NAAT Lab Routine Dysuria Vaginal discharge Encounter for sexually transmitted disease counseling 12/23/2023 6:20 PM EDT [facility] Work Phone: RNACHO/TRICHOMONAS NAAT RANCHO /TRICHOMONAS NAAT Lab Routine Screening for STDs (sexually transmitted diseases) 10/26/2024 9:22 AM [facility] CBC Auto Differential CBC Auto D ifferential Lab Routine Daily until discontinued starting 12/06/2020, 1 completed [employer] Work Phone: Comment on above: Daily until disconti nued starting 12/06/2020, 1 completed Chlamydia trachomatis+Neisseria gonorrhoeae DNA [Presence] in Unspecified specimen by SOL with probe detection GC/CHLAMYDIA DNA DET Lab Routine Vaginal irritation 01/02/2022 1:17 PM EDT [facility] Work Phone: Chlamydia trachomatis+Neisseria gonorrhoeae DNA [Presence] in Unspecified specimen by SOL with probe detection GC/CHLAMYDIA DNA DET Lab Routine Screening for STD (sexually transmitted disease) Vaginal discharge 02/21/2023 3:44 PM EDT [facility] Work Phone: Chlamydia trachomatis+Neisseria gonorrhoeae DNA [Presence] in Unspecified specimen by SOL with probe detection GONORRHEA/CHLAMYDIA NAAT Lab Routine Vaginal discharge 04/23/2023 3:05 PM EDT [facility] Work Phone: Chlamydia trachomatis+Neisseria gonorrhoeae DNA [Presence] in Unspecified specimen by SOL with probe detection GONORRHEA/CHLAMYDIA NAAT Lab Routine Dysuria Vaginal discharge Encounter for sexually transmitted disease counseling 12/23/2023 6:20 PM EDT [facility] Work Phone: Chlamydia trachomatis+Neisseria gonorrhoeae DNA [Presence] in Unspecified specimen by SOL with probe detection GONORRHEA/CHLAMYDIA NAAT Lab Routine Unprotected sex Ordered: 10/26/2024 [facility] Comment on above: Ordered: 10/26/2024 COVID & INFLUENZA A/ B & RSV NAAT, ROUTINE COVID & INFLUENZA A/B & RSV NAAT, ROUTINE Microbiology Routine Viral illness 07/16/2023 7:49 PM EDT [facility] Work Phone: IR CEREBRAL EMBO EXTRACRANIAL IR CEREBRAL EMBO EXTRACRANIAL Radiology Routine AVM (arteriovenous malformation) Ordered: 12/19/2022 [facility] Work Phone: Comment on above: Ordered: 12/19/2022 Oxygen therapy [[facility] Initiate Oxygen Therapy Protocol Respiratory Care Routine Daily until discontinued starting 12/06/2020 [facility] Work Phone: Comment on above: Daily until disconti nued starting 12/06/2020 PAP TEST PAP TEST Lab Rodrigue curiel Encounter for gynecological examination (general) (routine) with abnormal findings Screening for cervical cancer Encounter for screening for human papillomavirus (HPV) 10/26/2024 9:22 AM EST [facility] Patient Education [facility] Work Phone: Patient referral [facility] Work Phone: REFER FOR ADMIT INTERVIEW REFER FOR ADMIT INTERVIEW Procedures Routine AVM (arteriovenous malformation) Ordered: 12/19/2022 [facility] Work Phone: Comment on above: Ordered: 12/19/2022 ROUTINE FLU A/B + RSV ROUTINE FL U A/B + RSV Lab Routine Viral illness 07/16/2023 7:49 PM EDT [facility] Work Phone: SARS-CoV-2 (COVID-19 ) RNA [Presence] in Respiratory specimen by SOL with probe detection COVID NAAT, UPPER RESPIRATORY, ROUTINE Microbiology Routine Viral illness 07/16/2023 7:49 PM EDT [facility] Work Phone: Streptococcus pyogen es antigen assay Group A Streptococcus Rapid Screen [facility] Work Phone: Urine test [facility] Urine test visual color cmprsn meths HCG QUAL UR B/O Lab Routine AVM (arteriovenous malformation) Ordered: 12/19/2022 [facility] Work Phone: Comment on above: Ordered: 12/19/2022 [facility] Immunizations Immunization Date Immunization Notes Care Provider Fa cili 06-02-2019 influenza, injectabl e, quadrivalent, contains preservative Roberta Guthrie MD Work Phone: [facility] 06-02-2019 tetanus toxoid, redu mary diphtheria toxoid, and acellular pertussis vaccine, adsorbed Roberta Guthrie MD Work Phone: [facility] 06-02-2019 influenza virus vacc ine, unspecified formulation Carmen Ortega [facility] Work Phone: [facility] 03-29-2014 human papilloma viru s vaccine, quadrivalent Roberta Guthrie MD Work Phone: [facility] 03-29-2014 varicella virus vaccine Teresita Guthrie MD Work Phone: [facility] 05-28-2012 meningococcal polysaccharide (groups A, C, Y and W-135) diphtheria toxoid conjugate vaccine (MCV4P) Roberta Guthrie MD Work Phone: [facility] Work Phone: 05-28-2012 Meningococcal, MCV4, unspecified conjugate formulation(groups A, C, Y and W-135) Roberta Guthrie MD Work Phone: [facility] Work Phone: 05-28-2012 tetanus toxoid, redu mary diphtheria toxoid, and acellular pertussis vaccine, adsorbed Roberta Guthrie MD Work Phone: [facility] Work Phone: 10-19-2004 diphtheria, tetanus toxoids and acellular pertussis vaccine Roberta Guthrie MD Work Phone: [facility] Work Phone: 10-19-2004 measles, mumps and rubella virus vaccine Roberta Guthrie MD Work Phone: [facility] Work Phone: 10-19-2004 poliovirus vaccine, inactivated Roberta Guthrie MD Work Phone: [facility] Work Phone: 10-10-2002 pneumococcal conjuga te vaccine, 7 valent Roberta Guthrie MD Work Phone: [facility] Work Phone: 10-10-2002 pneumococcal Conjuga te, unspecified formulation Roberta Guthrie MD Work Phone: [facility] Work Phone: 11-20-2001 diphtheria, tetanus toxoids and acellular pertussis vaccine Roberta Guthrie MD Work Phone: [facility] Work Phone: 11-20-2001 haemophilus influenz ae type b vaccine, HbOC conjugate Roberta Guthrie MD Work Phone: [facility] Work Phone: 11-20-2001 haemophilus influenz ae type b vaccine, PRP-T conjugate Roberta Guthrie MD Work Phone: [facility] Work Phone: 11-20-2001 hepatitis B vaccine, pediatric or pediatric/adolescent dosage Roberta Guthrie MD Work Phone: [facility] Work Phone: 06-20-2001 measles, mumps and rubella virus vaccine Roberta Guthrie MD Work Phone: [facility] Work Phone: 06-20-2001 pneumococcal conjuga te vaccine, 7 valent Roberta Guthrie MD Work Phone: [facility] Work Phone: 06-20-2001 pneumococcal Conjuga te, unspecified formulation Roberta Guthrie MD Work Phone: [facility] Work Phone: 06-20-2001 varicella virus vaccine Teresita Guthrie MD Work Phone: [facility] Work Phone: 2000 diphtheria, tetanus toxoids and acellular pertussis vaccine Roberta Guthrie MD Work Phone: [facility] Work Phone: 2000 haemophilus influenz ae type b vaccine, HbOC conjugate Roberta Guthrie MD Work Phone: [facility] Work Phone: 2000 haemophilus influenz ae type b vaccine, PRP-T conjugate Roberta Guthrie MD Work Phone: [facility] Work Phone: 2000 hepatitis B vaccine, pediatric or pediatric/adolescent dosage Roberta Guthrie MD Work Phone: [facility] Work Phone: 2000 poliovirus vaccine, inactivated Roberta Guthrie MD Work Phone: [facility] Work Phone: 2000 diphtheria, tetanus toxoids and acellular pertussis vaccine Roberta Guthrie MD Work Phone: [facility] Work Phone: 2000 haemophilus influenz ae type b conjugate and Hepatitis B vaccine Roberta Guthrie MD Work Phone: [facility] Work Phone: 2000 haemophilus influenz ae type b vaccine, HbOC conjugate Roberta Guthrie MD Work Phone: [facility] Work Phone: 2000 haemophilus influenz ae type b vaccine, PRP-T conjugate Roberta Guthrie MD Work Phone: [facility] Work Phone: 2000 hepatitis B vaccine, pediatric or pediatric/adolescent dosage Roberta Guthrie MD Work Phone: [facility] Work Phone: 2000 poliovirus vaccine, inactivated Roberta Guthrie MD Work Phone: [facility] Work Phone: 2000 diphtheria, tetanus toxoids and acellular pertussis vaccine Roberta Guthrie MD Work Phone: [facility] Work Phone: 2000 haemophilus influenz ae type b conjugate and Hepatitis B vaccine Roberta Guthrie MD Work Phone: [facility] Work Phone: 2000 haemophilus influenz ae type b vaccine, HbOC conjugate Roberta Guthrie MD Work Phone: [facility] Work Phone: 2000 haemophilus influenz ae type b vaccine, PRP-T conjugate Roberta Guthrie MD Work Phone: [facility] Work Phone: 2000 hepatitis B vaccine, pediatric or pediatric/adolescent dosage Roberta Guthrie MD Work Phone: [facility] Work Phone: 2000 poliovirus vaccine, inactivated Roberta Guthrie MD Work Phone: [facility] Work Phone: 2000 hepatitis B vaccine, pediatric or pediatric/adolescent dosage Roberta Guthrie MD Work Phone: [facility] Work Phone: Payers Date Payer Category Payer Self-pay [id number] 2022 Medicaid [id number] 2021 [facility] [id number] 2019 Medicaid [facility] MEDICAID [id number] 2019-Present [phone] [address] [place] [address] Medicaid [id number] 2019 Medicaid [id number] 2016 Unknown [id number] 2000 Unknown [id number] 2000 Unknown [id number] 2000 Unknown [id number] [id number] 2000 Unknown [id number] [id number] 2000 Unknown [id number] [id number] 2000 Unknown [id number] [id number] 2000 Unknown [id number] Unknown [facility] COMMUNITY PLAN [id number] Unknown [id number] Unknown [id number] Unknown [id number] [id number] Unknown [id number] [id number] Unknown [id number] Unknown [id number] Social History Date Type Detail Facility Tobacco smoking status AZIS Unknown if ever smoked [facility] Work Phone: Start: 2000 Sex Assigned At Not on file S [facility] Work Phone: Start: 02-12-2019 End: 04-09-2019 Tobacco smoking status NHIS Occasional tobacco smoker [facility] Work Phone: Start: 02-12-2019 End: 10-26-2024 Tobacco use and exposure Smokeless tobacco non-user [facility] Work Phone: Start: 01-02-2022 End: 10-26-2024 Alcohol intake Current non-drinker of alcohol (finding) [facility] Start: 04-09-2019 End: 10-18-2022 Tobacco Comment 5 cigarettes daily [facility] Start: 12-11-2020 End: 01-02-2022 Exposure to SARS-CoV-2 (event) Not sure [facility] Start: 09-16-2022 End: 07-28-2023 Tobacco smoking status NHIS Unknown if ever smoked [facility] Start: 01-11-2021 None [facility] Start: 01-11-2021 With Family [facility] Start: 01-18-2021 Cigarettes [facility] Start: 2000 Sex Assigned At Female W [facility] Start: 01-03-2023 End: 04-07-2025 Tobacco smoking status NHIS Smokes tobacco daily [facility] History of tobacco use Cigarette Smoker [facility] Start: 01-03-2023 End: 11-04-2024 Cigarettes smoked current (pack per day) - Reported 0.3 [facility] Start: 01-04-2023 History SDOH Financial 4 [facility] Start: 01-04-2023 History SDOH Food Worry 1 [facility] Start: 01-04-2023 History SDOH Transport Med 2 [facility] Start: 04-23-2023 End: 11-04-2024 Tobacco use panel [facility] How hard is it for you to pay for the very basics like food, housing, medical care, and heating Not very hard [facility] Adult Depression Screening Assessment 0 [facility] (I/We) worried whether (my/our) food would run out before (I/we) got money to buy more. Never true [facility] In the past 12 months, was there a time when you were not able to pay the mortgage or rent on time? No [facility] Start: 12-17-2024 Sex Female (finding) [facility] NEGATED: Highlighted row [facility] NEGATED: Highlighted row Not [facility] Goals Date Patient Goal Desired Activity /State Functional Status Date Assessment Result Facility 01-05-2023 Are you deaf, or do you have serious difficulty hearing No 01/05/2023 11:35 AM EDShazia Salvador RN No [facility] 01-05-2023 Are you blind, or do you have serious difficulty seeing, even when wearing glasses No 01/05/2023 11:35 AM Shazia Chang, PATIENCE [facility] 01-05-2023 Do you have serious difficulty walking or climbing stairs No 01/05/2023 11:35 AM Shazia Chang, PATIENCE [facility] 01-05-2023 Do you have difficul ty dressing or bathing No 01/05/2023 11:35 AM Shazia Chang, PATIENCE [facility] 01-05-2023 Because of a physica l, mental, or emotional condition, do you have difficulty doing errands alone such as visiting a physician's office or shopping No 01/05/2023 11:35 AM Shazia Chagn RN [facility] Mental Status Date Assessment Result Facility 12-17-2024 Cognitive function Voice/Name [facility] Work Phone: 12-17-2024 Cognitive function Patient Orien tation Person;Place;Time [facility] Work Phone: 06-12-2023 Cognitive function Voice/Name [facility] Work Phone: 01-05-2023 Because of a physica l, mental, or emotional condition, do you have serious difficulty concentrating, remembering, or making decisions No 01/05/2023 11:35 AM EDShazia Salvador, PATIENCE [facility] 09-16-2022 Cognitive function Level Of Cons ciousness Awake;Alert;Appropriate;Fol lows Commands [facility] Work Phone: Clinical Notes 09-22-2020 to 04-07-2025 Note Date & Type Note Facility 04-07-2025 Discharge summary [facility] 04-07-2025 Discharge summary Note Date/Time April 07, 2025 11:47pm [facility] Medical Records Department [address] [place] [address] Emergency Department Summary 04/07/25 MR#: [id number] Acct: [id number] Name: EB HUI Rep #:[id number] : 2000 25 From: Alden Chun PCP: JEIMY Pinto Status:PRE ER Location: ED HPI History of Present Illness Chief Complaint: Itching PFSH PFSH Medical History Hx of arteriovenous malformation (AVM) Wears contact lenses Wears glasses MRSA infection Depression Anxiety Alcohol use Loss of consciousness Smoker Home Medications ?Medication ?Instructions ?Recorded ?Last Taken ?Type NK 04/07/25 Unknown History Allergy/AdvReac Type Severity Reaction Status Date / Time No Known Allergies Allergy Verified 04/07/25 23:12 Surgical History History of tonsillectomy and adenoidectomy Social History Smoking Status: Current every day smoker tobacco type: e-cigarettes EXAM Physical Exam Const Vital Signs: 04/07/25 23:12 Temperature 98.6 F Temperature Source Oral Pulse Rate 86 Respiratory Rate 17 Blood Pressure 126/83 H Blood Pressure Mean 97 Pulse Ox 98 Oxygen Delivery Method Room Air MDM MDM MDM Narrative Medical decision making narrative: HISTORY OF PRESENT ILLNESS: Chief complaint: Itching 25-year-old female presents with itching. Notes itchiness of scalp and all overher body. This began []. No new foods or travel REVIEW OF SYSTEMS: Pertinent positives: Itching Pertinent negatives: Fever, vomiting. PHYSICAL EXAM: Nursing triage notes reviewed, Vital signs reviewed Constitutional: please see mdm HENT: MMM Eyes: Pupils equal round and reactive to [...] (radial, femoral, posterior tibial) in all extremities Abdomen: Soft, there is no tenderness, rigidity, rebound or guarding, no obvious peritoneal signs, no palpable pulsatile abdominal masses, no auscultated abdominal bruit : No CVAT Extremities: No edema Neuro: No new focal neurological deficits, cranial nerves II through XII intact, 5/5 strength in all present extremities. Intact sensation to light touch in all present extremities, 2+ reflexes bilateral patella tendons. Skin: Nonspecific erythematous lesions noted to the posterior scalp, no crepitus or bullae, no warmth. Lesions are blanchable. They are itchy to the patient. They do have yellow crusting noted. They are not in a pattern that is consistent with tinea capitis or other fungal infection. They are not warm and no palpable fluctuance to suggest abscess or bacterial infection MEDICAL DECISION MAKING: Chief Complaint: please see HPI External records reviewed: Reviewed prior ED visit History obtained from others: Mother Consults: none MDM Narrative: The patient was initially hemodynamically stable, afebrile and nontoxic-appearing. Scalp exam consistent with nonspecific dermatitis. Will give symptomatic therapy in the form of steroids, antihistamines. No sign of fungal or bacterial infection on my initial exam. Patient was given PCP and dermatology follow-up. The patient and/or family, caregivers express understanding. The patient and/or family, caregivers agrees with the plan. Shared decision making: I will have a discussion with the patient and or visitors regarding risk/benefits of further testing or admission. They will be made aware of of the risk/benefits inherent in this decision they will be given the opportunity to voice understanding. Total critical care time today provided was at least 0 [] minutes. This excludes separately billable procedures. Critical care time (if documented) is secondary to the patient having high probability of clinically significant/life threatening deterioration in the patient's condition which required my urgent intervention. Impression: 1. Itching 2. Scalp rash Dispo: Discharge This note was generated with Codement[employer] dictation software. It may contain incorrect words, spelling, and punctuation that were not noted in review of the chart prior to signing. Discharge Plan Triage Chief Complaint: Itching ED Provider: Alden Miner Dx/Rx/DC Orders Prescriptions: No Action NK Primary Care Provider: Petty Vasquez Referrals: Petty Vasquez NP-C [Primary Care Provider] - Print Language: Zambian What to do if you have Problems For any increased pain, shortness of breath, bleeding, nausea or vomiting, chestpain, or any unexpected problems, contact your Primary Care Provider. Call [facility] ([phone]) or report to the closest Emergency Room. Call 911 if necessary. 04/07/25 4659 <Electronically signed by Alden Miner DO> Cosigner Signature (if applicable): CC: JEIMY Vasquez ~ Signed [facility] Work Phone: 1(722) 667-480106-03-2025 Evaluation note* Diagnosis Onset Date Resolution Status Admit Date Yeast infection acute February 23, 2025 6:13am [facility] Work Phone: 1(403) 245-366906-03-2025 Evaluation note* Diagnosis Onset Date Resolution Status Admit Date Yeast infection acute February 23, 2025 6:13am Angular cheilitis acute February 2:16pm [facility] Work Phone: 1(182) 610-187704-02-2025 Telephone encounter Note* Telephone Encounter - Nella John MD - 12/23/2024 4:13 PM EDT Please notify patient that tissue is benign from D&C. [facility]04-02-2025 Miscellaneous Notes* Telephone Encounter - Nella John MD - 12/23/2024 4:13 PM EDT Please notify patient that tissue is benign from D&C. [facility] Discharge summary [facility] Medical Records Department [address] [place] [address] Instructions for Home/Discharge Instructions 12/17/24 1019 MR#: [id number] Acct: [id number] Name: EB HUI Rep #:[id number] : 2000 24 From: Nella Hood MD [...] if you need an appointment please call [phone] Test Results: Test results from this visit will be discussed in further detail at your follow- up appointment, if applicable. Discharge Plan Admission Attending Provider: Nella Ward Primary Care Provider: Petty Vasquez Instructions Print Language: Zambian Discharge Orders/Prescriptions Prescriptions: No Action alprazolam 0.5 mg tablet 0.5 mg PO PRN Other Ambulatory Orders: ,Urine (Routine) Timeframe: 20241217 Facility: [facility] - Location: Laboratory Ordered By: Dr. Jamey Lilly Referrals / Follow Up: Petty Vasquez NP-C [Primary Care Provider] - Disposition Disposition (needs filled in before D/C Order can be placed): Home, Self Care 12/17/24 1019Nella Ward MD CC: EXTRUSION UTILITY WORKER-C NP. Petty Vasquez ~ Signed [facility]03-27-2025 History and physical note Author Nella Escalera [facility] Note Date/Time December 17, 2024 8:3 9am [facility] Medical Records Department [address] [place] [address] H&P Exam - CHAINER 12/16/24 1716 MR#: [id number] Acct: [id number] Name: EZEB Rep #:[id number] : 2000 24 From: Nella Hood MD PCP: JEIMY Abrams Status: REG [facility] Location: [address] History and Physical Date of Admission: 12/17/24 [...] Ward MD> Cosigner Signature (if applicable): CC: EXTRUSION UTILITY WORKERMaik Vasquez; Dr Nella Ward MD~ Signed ADDENDUM by Dr Nella Ward MD on 12/17/24 at 0839 Addendum I have examined the patient and the H&P has been reviewed. There are no clinicalchanges since date of exam. 12/17/24 0839<Electronically signed by Nella Ward MD> Cosigner Signature (if applicable): cc: EXTRUSION UTILITY WORKERMaik Vasquez; Dr Nella Ward MD ~* Signed [facility] Work Phone: 1(915) 459-878503-27-2025 Consult note [facility] Medical Records Department [address] [place] [id number] Anesthesia Postop Eval I 12/17/24 1022 MR#: [id number] Acct: [id number] Name: EB HUI Rep #:[id number] : 2000 24 From: Eunice Pereira CRNA PCP: JEIMY Abrams Status: REG SDC Y Race: C Location: [place] [address]- Anesthesia: Postop Eval I Current Vital Signs [...] 12/17/24 1031 NA> Date _ Eunice Pereira ECOLOGICAL RISK ASSESSOR Cosigner Signature: Date CC: ~ Signed [facility]03-27-2025 Procedure note [facility] Medical Records Department [address] [facility] [place] [address] Operative Report 12/17/24 1019 MR#: [id number] Acct: [id number] Name: EB HUI EILEEN Rep #:[id number] : 2000 24 From: Nella Hood MD PCP: JEIMY Abrams Status: [facility] Location: [place] [address] Operative Report (Standard) Operative Information Date of Procedure: 12/17/24 Pre-Operative Diagnosis: AUB, Endometrial Polyp Post-Operative Diagnosis: same Surgery/Procedure Performed: Hysteroscopy, d&C nutrition club ambassador: Yes Distribution Collection Operator: Jono Matamoros MS3 Tasks completed by certified surgical tech/first assistant: Retracting Additional assistant city attorney?: No Type of Anesthesia: MAC RN Documented [...] anesthesia. She was then [facility] where she was preppedand draped in the [...] 12/17/24 1021 Cosigner Signature (if applicable): CC: EXTRUSION UTILITY WORKER-Yoanna Vasquez; Dr Nella Ward MD~ Signed [facility]03-27-2025 History and physical note [facility] Medical Records Department [address] [place] [address] H&P Exam - CHAINER 12/16/24 1716 MR#: [id number] Acct: [id number] Name: EB HUI Rep #:[id number] : 2000 24 From: Nella Hood MD PCP: JEIMY Abrams Status: REG [facility] Location: [place] [address] History and Physical Date of Admission: 12/17/24 [...] medications and allergies Nella Hood MD 12/16/24 2559 Cosigner Signature (if applicable): CC: EXTRUSION UTILITY WORKER-C BHUPENDRA. Petty Vasquez; Dr Nella Ward MD~ Signed ADDENDUM by Dr Nella Ward MD on 12/17/24 at 0839 Addendum I have examined the patient and the H&P has been reviewed. There are no clinicalchanges since date of exam. 12/17/24 0839 Cosigner Signature (if applicable): cc: EXTRUSION UTILITY WORKERNatalieC BHUPENDRA. Petty Vasquez; Dr Nella Ward MD ~* Signed [facility]03-26-2025 History and physical note* Nella John MD [...] history, medications and allergies Nella Hood MD [facility]03-26-2025 History and physical note* Nella John MD [...] allergies Nella Hood MD documented in this [facility]03-[facility]-2025 NoteHNO ID: [id number] Author: NELLA JOHN MD Service: ? Author Type: Physician Type: Progress Notes Filed: 12/16/2024 17:17 Note Text:[facility]03-26-2025 History of Present illness Narrative* Nella John MD - 12/16/2024 1:26 PM EDT [facility]25 Telephone encounter Note * Telephone Encounter - Angelina Gloria RN - 11/18/2024 4:16 PM EST Notified scheduler maintenance. Angelina Gloria RN [facility]02-26-2025 Miscellaneous Notes* Telephone Encounter - Angelina Gloria RN - 11/18/2024 4:16 PM EST Notified scheduler maintenance. Angelina Gloria RN * Telephone Encounter - Petty Rubalcava APRN.CNM - 11/18/2024 12:54 PM EST No, I can I have a sheet for a provider that is available in about 6-8 wks. Thanks, Petty Rubalcava APRN.CNM documented in this [facility]02-[facility]-2025 Telephone encounter Note * Telephone Encounter - Petty Rubalcava APRN.CNM - 11/18/2024 12:54 PM EST No, I can I have a sheet for a provider that is available in about 6-8 wks. Thanks, Petty Rubalcava APRN.CNM [facility]02-12-2025 Instructions* Patient Instructions* Petty Rubalcava APRN.CNM - [...] the sterile water can distend the uterine hightowre and allow visualization of the uterine cavity. [...] for scheduling the procedure documented in this encounterM[facility]02-12-2025 NoteHNO ID: [id number] Author: PETTY RUBALCAVA APRN.CNM Service: ? Author Type: Fireworks Inspector Type: Progress Notes Filed: 11/17/2024 14:43 Note Text: DISTANCE HEALTH VISIT This Team Access Model visit is a virtual encounter. It required patient-provider interaction for the medical decision making as documented below. I have communicated my name and active licensure. The patient's identity and physical location were verified at the time of this visit. Either the patient or their legal apprenticeship training representative has been informed of the risks [...] Abs Lymph 1.00 - 4.00 k/uL 1.87 Thurston% % 8.3 Abs Thurston <0.87 k/uL 0.44 Eosin% % 0.8 Abs [...] Clear Case Report Gynecologic Cytology Report Case: [id number] ? Specimen adequacy: Satisfactory for interpretation. Cytology [...] from every slide are reviewed by a liner reroll tender. Performing Lab Technical component, liner reroll tender screening performed at [facility], [address] [place] [address] CLIA# [id number]? Rancho species group RNA Not detected Not [...] Arcuate uterus. ASSESSMENT/PLAN: 1 (more content not included)...[facility]02-12-2025 History of Present illness Narrative* Petty Rubalcava APRN.KAROL - 11/04/2024 3:05 PM EST DISTANCE HEALTH VISIT This Team Access Model visit is a virtual encounter. It required patient- provider interaction for the medical decision making as documented below. I have communicated my name and active licensure. The patient's identity and physical location wereverified at the time of this visit. Either the patient or their legal apprenticeship training representative has been informed of the risks [...] Abs Lymph 1.00 - 4.00 k/uL 1.87 Thurston% % 8.3 Abs Thurston <0.87 k/uL 0.44 Eosin% % 0.8 Abs [...] Clear Case Report Gynecologic Cytology Report Case: [id number] Specimen adequacy: Satisfactory for interpretation. Cytology Interpretation [...] from every slide are reviewed by a liner reroll tender. Performing Lab Technical component, liner reroll tender screening performed at [facility], [address] [place] [address] CLIA# [id number] Rancho species group RNA Not detected Not [...] of cure in 6 weeks Petty Rubalcava APRN.IRA I spent 20 minutes in the visit, with more than 50% of the total [id number]-opfs time of the visit in counseling / coordination of care. documented in this encounterM[facility]02-10-2025 Telephone encounter Note * Telephone Encounter - Angelina Gloria RN - 11/02/2024 10:02 AM EST Patient notified. Moved up her VV to discuss options further. Angelina Gloria RN [facility]02-10-2025 Miscellaneous Notes* Telephone Encounter - Angelina Gloria [...] 11/02. Jolanta Day RN documented in this encounterM[facility]02-10-2025 Telephone encounter Note * Telephone Encounter - [...] visit in any slot. Petty Rubalcava APRN.CNM [facility]02-07-2025 Telephone encounter Note* Telephone Encounter - Jolanta Day RN - 10/30/2024 2:25 PM EST Patient calling because she saw pelvic u/s results on mychart and is concerned. Her f/u appt is notuntil 11/17. Aware SAM back in the office 11/02. Jolanta Day RN [facility]02-06-2025 NoteHNO ID: [id number] Author: JEANIE REYNOLDS MD Service: ? Author Type: Physician Type: Progress Notes Filed: 10/29/2024 21:52 Note Text: The patient presents for requested ultrasound. Full report available in the Imaging tab in [employer]. [facility] History of Present illness Narrative* Jeanie Reynolds MD - 10/29/2024 9:31 PM EST The patient presents for requested ultrasound. Full report available in the Imaging tab in [employer]. Jeanie Reynolds MD documented in this encounterM[facility]02-04-2025 Telephone encounter Note * Telephone Encounter - Yordan Smalls APRN.CNP - 10/27/2024 8:38 AM EST I called Patient let her know positive chlamydia. Doxycycline was called in. Let her know about negative gonorrhea. [facility]02-04-2025 Miscellaneous Notes* Telephone Encounter - Yordan Smalls APRN.CNP - 10/27/2024 8:38 AM EST I called Patient let her know positive chlamydia. Doxycycline was called in. Let her know about negative gonorrhea. documented in this encounterM[facility] Hospital02-03-2025 NoteHNO ID: [id number] Author: YORDAN SMALLS APRN.CNP Service: ? Author [...] NAAT Self swab Other swabs ordered with collections specialist If anything is positive please treat.. Potential red flag symptoms discussed with the patient. Reviewed appropriate action plan to take if red flag symptoms occur. Patient agreeable to treatment plan. Yordan Smalls APRN.[facility]02-03-2025 History of Present illness Narrative* Yordan Smalls APRN.[facility] - 10/26/2024 3:06 PM EST CC: Patient [...] NAAT Self swab Other swabs ordered with collections specialist If anything is positive please treat.. Potential red flag symptoms discussed with the patient. Reviewed appropriate action plan to take if red flag symptoms occur. Patient agreeable to treatment plan. Yordan Smalls APRN.CNP documented in this encounterMckitrick Hospital02-03-2025 Instructions* Patient Instructions* Petty Rubalcava APRN.CN - 10/26/2024 9:12 AM EST What is [...] before it is found. documented in this encounterM[facility]it[facility] Hospital02-03-2025 NoteHNO ID: [id number] Author: PETTY RUBALCAVA APRN.CNM Service: ? Author Type: Fireworks Inspector Type: Progress Notes Filed: 10/26/2024 12:38 Note [...] L1 SAB0 IAB0 Ectopic0 Multiple0 Live Births1 Drum Puller History LMP: 10/08/2024, Having periods Age at Menarche: 12 Age at First : Age at Menopause: Drum Puller History Comments: Sexual Activity: Yes; Male Contraception: [...] discussed with the Patient or Patient's Authorized It Systems Engineer. As applicable, any other physician, advance practice provider, medical student, or other health professional student that will be observing or involved in the sensitive examination for educational or training purposes was discussed with the Patient or Authorized It Systems Engineer. The Patient or Authorized It Systems Engineer has agreed to proceed with the [...] external genitalia normal, normal Bartholin's glands, urethra, Chiawuli Tak's glands, no vulvar lesions, no cervical lesions, [...] PAP TEST 3. Encounter (more content not included)...[facility]02-03-2025 History of Present illness Narrative* Petty Rubalcava [...] L1 SAB0 IAB0 Ectopic0 Multiple0 Live Births1 Drum Puller History LMP: 10/08/2024, Having periods Age at Menarche: 12 Age at First : Age at Menopause: Drum Puller History Comments: Sexual Activity: Yes; Male Contraception: [...] discussed with the Patient or Patient's Authorized It Systems Engineer. As applicable, any other physician, advance practice provider, medical student, or other health professional student that will be observing or involved in the sensitive examination for educational or training purposes was discussed with the Patient or Authorized It Systems Engineer. The Patient or Authorized It Systems Engineer has agreed to proceed with the [...] external genitalia normal, normal Bartholin's glands, urethra, Chiawuli Tak's glands, no vulvar lesions, no cervical lesions, [...] with more than 50% of the total [id number] time of the visit in counseling / coordination of care. documented in this encounterM[facility]11-15-2024 NoteHNO ID: [id number] Author: LYNN SMALLS MD Service: ? Author [...] L1 SAB0 IAB0 Ectopic0 Multiple0 Live Births1 Drum Puller History LMP: 07/23/2024 (Approximate), Having periods Age at Menarche: Age at First : Age at Menopause: Drum Puller History Comments: Sexual Activity: Yes; Male Contraception: [...] discussed with the Patient or Patient's Authorized It Systems Engineer. As applicable, any other physician, advance practice provider, medical student, or other health professional student that will be observing or involved in the sensitive examination for educational or training purposes was discussed with the Patient or Authorized It Systems Engineer. 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 As applicable, any other physician, advance practice provider, medical student, or other health professional student that will be observing or involved in the sensitive examination for educational or training purposes was discussed with the Patient or Authorized It Systems Engineer. The Patient or Authorized It Systems Engineer has agreed to proceed with the [...] Low Lynn Smalls MD documented in this encounterM[facility]it[facility] Hospital04-02-2024 Miscellaneous Notes* Telephone Encounter - Willow Jacinto APRN.CNP - 12/24/2023 8:58 AM EDT Patient advised of test results-[facility] prescribed yesterday. She will take as directed. Willow Jacinto APRN.CNP documented in this encounterMckitrick Hospital04-01-2024 History of Present illness Narrative* Petty Uriostegui APRN.CNP - 12/23/2023 6:16 PM EDT This note was created using Pro[employer]. Subjective Eb Hui is a 23 year [...] female hygiene and importance of establishing with CHAINER for recurrent bacterial vaginosis - Start diflucan and rima Knowles TEACHING PROVIDER (Physician/PA/NETWORK SECURITY ANALYST) NOTE OF PERSONAL INVOLVEMENT IN CARE: I have personally seen and examined the patient and performed the medical decision-making components. I have reviewed the Advanced Practice Registered Nurse (NETWORK SECURITY ANALYST) Student's documentation and verified the findings in the note as written. Any additions or changes are noted in bold/italics. Signature: Petty Uriostegui Date: 12/23/2023 Time: 7:22 PM documented in this encounterMckitrick Hospital02-19-2024 Telephone encounter Note * Telephone Encounter - Malathi Faith RN - 11/11/2023 11:39 AM EST Message sent to [employer] to schedule for apt with Dr. Mcdaniels in November. Malathi Faith RN [facility]02-19[facility] Miscellaneous Notes* Telephone Encounter - Malathi Faith RN - 11/11/2023 11:39 AM EST Message sent to [employer] to schedule for apt with Dr. Mcdaniels in November. Malathi Faith RN * Telephone Encounter - Petty Mccartney - 11/11/2023 9:18 AM EST CV PHONE Name of caller : Eb Relationship to patient : Self If not self Will need patient permission to release results or disclose health information with called documented in . Patient identified by Name and Date of . ( Eb Hui, 2000). Yes Number to return call [phone] Reason for Call: Patient is calling to schedule follow up with Dr. Mcdaniels. Patient states was nervous about completing some kind of injection and kept putting off follow up regarding a tumor. Please review chart and have front loader residential driver call to schedule follow up. Thank you calling [facility]. You will receive a return call within 48hours ( or 2 business days if close to the weekend). If you feel that this is an urgent issue and needs immediate attention, it is recommended that you contact your primary care provider office or proceed to your nearest Urgent Care Center of Emergency Room ED for evaluation/treatment. documented in this encounterMckitrick Hospital02-19-2024 Telephone encounter Note * Telephone Encounter - Bib Petty - 11/11/2023 9:18 AM EST CV PHONE Name of caller : Eb Relationship to patient : Self If not self Will need patient permission to release results or disclose health information with called documented in fyi. Patient identified by Name and Date of . ( Eb Hui, 2000). Yes Number to return call [phone] Reason for Call: Patient is calling to schedule follow up with Dr. Mcdaniels. Patient states was nervous about completing some kind of injection and kept putting off follow up regarding a tumor. Please review chart and have front loader residential driver call to schedule follow up. Thank you calling [facility]. You will receive a return call within 48hours ( or 2 business days if close to the weekend). If you feel that this is an urgent issue and needs immediate attention, it is recommended that you contact your primary care provider office or proceed to your nearest Urgent Care Center [facility] Emergency Room ED for evaluation/treatment. [facility] History of Present illness Narrative* Ricardo Campuzano APRN.BUCKET TURNER - 11/03/2023 1:46 PM EST Subjective HPI [...] DOXYCYCLINE MONOHYDRATE 100 MG TABLET Ricardo Campuzano APRN.BUCKET TURNER documented in this encounterMckitrick Hospital11-29-2023 History of Present illness Narrative* Leif Sahu [...] plan ofcare. This note was generated using Codementor software. It may contain errors in wording, punctuation,or spelling. Leif Sahu APRN.BUCKET TURNER documented in this encounterMckitrick Hospital11-05-2023 Discharge summary Author Alden Miner [facility] July 28, 2023 10:20pm Note Date/Time July 28, 2023 1 0:06pm [facility] Medical Records Department [address] [place] [address] Emergency Department Summary 07/28/23 MR#: [id number] Acct: [id number] Name: EB HUI Rep #:[id number] : 2000 23 From: Alden Chun PCP: [...] PDMP reviewed prescribed 3 days of vicodin [facility] Narrative: The patient was hemodynamically stable, afebrile, [...] diagnosis: Dental abscess, ANUG, Ludewig's angina, RPA, SENIOR SECURITY ANALYST, dental caries, gingivitis Factors affecting care: [...] your Primary Care Provider. Call [facility] ([phone]) or report to the closest Emergency Room. Call 911 if necessary. 07/28/232219 <Electronically signed by Alden Miner DO> Cosigner Signature (if applicable): CC: JEIMY HUIZAR. Petty Vasquez ~ Signed [facility] Work Phone: 1(898) 707-495410-24-2023 History of Present illness Narrative* Tiffanie Meier [...] 16, 2023 7:37 PM documented in this encounterMckitrick Hospital10-24-2023 History of Present illness Narrative* Liza Friedman PA-C - 07/16/2023 7:36 PM EDT This note was created using [employer]. Subjective Eb Hui is a 23 year [...] PCP. - XR CHEST 2V FRONTAL/LAT Liza R Athy, PA-C documented in this encounterMckitrick Hospital10-19-2023 Miscellaneous Notes* Telephone Encounter - Fe Mascorro MA - 07/11/2023 5:59 PM EDT Pt was notified of the results. Pt verbalized understanding. Fe Mascorro MA * Telephone Encounter - Yordan Smalls APRN.ELLIE - 07/11/2023 3:17 PM EDT Patient was negative for syphilis, HIV, hepatitis C, hepatitis B, and herpes type I. 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 Please notify patient thank you documented in this encounterMckitrick Hospital08-31-2023 Miscellaneous Notes* Telephone Encounter - Lore Duffy [...] avoid alcohol while taking flagyl. Willow Jacinto APRN.BUCKET TURNER documented in this encounterMckitrick Hospital08-04-2023 Telephone encounter Note * Telephone Encounter - Petty Mccartney - 04/26/2023 8:52 AM EDT CV PHONE Name of caller : Fidelia Relationship to patient : Mother If not self Will need patient permission to release results or disclose health information with called documented in fyi. Patient identified by Name and Date of . ( Eb Hui, 2000). Yes Number to return call [phone] Reason for Call: Patient and patient mother Fidelia is calling to reschedule missed appointment. I rescheduled virtual appointment 05/06 at 9:20 am per Malathi. Thank you calling [facility]. You will receive a return call within 48hours ( or 2 business days if close to the weekend). If you feel that this is an urgent issue and needs immediate attention, it is recommended that you contact your primary care provider office or proceed to your nearest Urgent Care Center of Emergency Room ED for evaluation/treatment. [facility] Miscellaneous Notes* Telephone Encounter - Petty Mccartney - 04/26/2023 8:52 AM EDT CV PHONE Name of caller : Fidelia Relationship to patient : Mother If not self Will need patient permission to release results or disclose health information with called documented in fyi. Patient identified by Name and Date of . ( Eb Hui, 2000). Yes Number to return call [phone] Reason for Call: Patient and patient mother Fidelia is calling to reschedule missed appointment. I rescheduled virtual appointment 05/06 at 9:20 am per Malathi. Thank you calling [facility]. You will receive a return call within 48hours ( or 2 business days if close to the weekend). If you feel that this is an urgent issue and needs immediate attention, it is recommended that you contact your primary care provider office or proceed to your nearest Urgent Care Center of Emergency Room ED for evaluation/treatment. documented in this encounterMckitrick Hospital08-02-2023 Miscellaneous Notes* Telephone Encounter - Gillian Flores - 04/24/2023 8:38 AM EDT Patient given results and verbalized understanding of instructions given. Gillian Flores * Telephone Encounter - Elizabeth Gomez PA - 04/24/2023 7:11 AM EDT Please let patient know she tested positive for bacterial vaginosis. Flagyl sent to her pharmacy-[facility] in [place]. Do not drink alcohol with taking this medication. Her GC/chlamydia and Candidawere all negative. documented in this encounterMckitrick Hospital08-01-2023 History of Present illness Narrative* Elizabeth Gomez PA - 04/23/2023 2:57 PM EDT This note was created using Projjixriter. Subjective Eb Hui is a 23 year [...] ER evaluation. SARINA Villalobos documented in this encounterMckitrick Hospital06-11-2023 Discharge summary Author Rodo Lund [facility] March 03, 2023 11:16am Note Date/Time March 03, 2023 9:46 am [facility] Medical Records Department [address] [place] [address] Emergency Department Summary 03/03/23 MR#: [id number] Acct: [id number] Name: EB HUI Rep #:[id number] : 2000 23 From: Rodo Lund MD [...] wrist or hand. She has bilateral normal cupola melting supervisor strength and radial pulse on the right. [...] motor deficits and no sensory deficits noted [place] Coma Scale: document GCS findings Spontaneous Obeys [...] Signed: Richie Gilmore MD at 10:26 EDT , Cervical Spine CT 03/03/23 09:35 IMPRESSION: No acute fracture or subluxation. Reversal of the normal lordotic curvature possibly from muscular spasm. Electronically Signed: Richie Gilmore MD at 10:40 EDT Reading Location ID and State: [id number] / [employer] , Service support , Soft Tissue Neck CT 03/03/23 09:35 IMPRESSION: 1. Soft tissue mass in the midline of the posterior aspect of the oropharynx posterior to the base of the tongue and anterior to the epiglottis. Similar findings are seen in the prior study. Clinical correlation is recommended. 2. 4 cm soft tissue mass of the right licensed retail supervisor space with calcifications with effacement of the right parapharyngeal space and mass effect on the right side of the oropharynx. Similar findings are seen in the prior study. Clinical correlation is recommended. Electronically Signed: Richie Gilmore MD at 10:38 EDT Reading Location ID and State: [id number] / [employer] , Service support , Chest X-Ray 03/03/23 10:10 IMPRESSION: Normal x-ray examination of the chest. Electronically Signed: Richie Gilmore MD at 10:41 EDT Reading Location ID and State: [employer] / [employer] , Service support , Humerus X-Ray 03/03/23 10:10 IMPRESSION: Normal x-ray examination of the humerus. Electronically Signed: Richie Gilmore MD at 10:41 EDT Reading Location ID and State: [id number] / [employer] , Service support , Right humerus x-ray 2 views interpreted [...] Referrals: George Erickson MD [Med Staff - Creative Services Specialist] - As Needed Care Physician,No Primary [Primary [...] your Primary Care Provider. Call [facility] ([phone]) or report to the closest Emergency Room. Call 911 if necessary. 03/03/23 1116 <Electronically signed by Rodo Lund MD> Cosigner Signature (if applicable): CC: No Primary Care Physician ~ Signed [facility] Work Phone: 1(237) 969-766106-02-2023 Miscellaneous Notes* Telephone Encounter - Arlin Ta LPN - 02/22/2023 2:54 PM EDT Pt calls states is at [facility] and her meds are not there from [facility] this am. This nurse looks and they went to [facility]. Pt states will call them and have them, [facility]. documented in this encounterMckitrick Hospital06-02-2023 Miscellaneous Notes* Telephone Encounter - Britney Butterfield [...] MA * Telephone Encounter - Willow Jacinto APRN.CNP - 02/22/2023 7:27 AM EDT I attempted [...] treatment. Willow Jacinto APRN.ELLIE documented in this encounterMckitrick Hospital06-01-2023 History of Present illness Narrative* SARINA Villalobos - 02/21/2023 3:10 PM EDT This note was created using Projjixriter. Subjective Eb Hui is a 23 year [...] ER evaluation. SARINA Villalobos documented in this encounterMckitrick Hospital05-12-2023 Miscellaneous Notes* Telephone Encounter - Brittani Marquez [...] appointment after consult is placed, hopefully in [place]. Patient is encouraged to proceed to ER with any significant worsening or difficultly breathing. She verifies understanding. Brittani Marquez RN * Telephone Encounter - Eric Alas RN - 02/01/2023 1:30 PM EDT Spoke to patient to discuss message. Patient states that she is having itching across face, side ofstomach, back , and legs. If she scratches, patient states it leaves very red eckert. Claritin givenin urgent care was not useful documented in this encounterMckitrick Hospital04-13-2023 Instructions* Patient Instructions* Junior Bella PA-C - 01/03/2023 10:55 AM EDT PATIENT PREOPERATIVE INSTRUCTIONS Aliya Mcdaniels MD has scheduled you for your procedure at this surgery center: [facility] Scheduling Office: [phone] --[address] [place] [address]. Please read below carefully for your personalized instructions. Arrival Time for Surgery: - To obtain your arrival time for surgery, call your physician's office the day before your surgery. - If your surgery is scheduled for Saturday, call the Saturday before. Your surgeon s scheduler maintenance will tell you what time to call the office. - If you have not reached the departmental scheduler maintenance by 5 P.M., call [phone] after 5 P.M. the day before your [...] Advance Directive, please fax a copy to [phone] or email to for it to be [...] day. Junior Bella PA-C documented in this encounterMckitrick Hospital04-13-2023 History and physical note * Junior Bella [...] manage symptoms. Procedure scheduled on 01/04/2023 at [facility]. REVIEW OF SYSTEMS: General: No weight loss, malaise or fevers. Neurological: No history of TIA's, stroke, CHICKEN TENDER tumor, impaired sensorium, hemiplegia, paraplegia orquadraplegia. No neurological symptoms or problems. Respiratory: Positive for: tobacco use (smokes 1 ppd x last 4 years). Negative for: asthma, COPD, current cough, dyspnea, URI < 2 weeks and obstructive sleep apnea. Cardiovascular: No history of HTN requiring medication, no history of angina, CHF, MS, cardiac surgery or stents. Denies rest pain, gangrene or revascularization/amputation for PVD. No history of cardiovascular symptoms or problems. GI: No history of GI symptoms or problems. No history of esophageal varices, recent ascites, or ETOH greater than 2 drinks per day. : Positive for: urinary tract infection (last UTI one month ago). Negative for: dysuria, frequent urination, nephrolithiasis, renal failure and urgency. JOCKEY VALET: LMP 12/31/22 Endocrine: No history of diabetes. [...] or any previous visit (from the past 45746 hour(s)). Assessment Patient has the following medical conditions which may affect cynthia-operative course: Mild major depression (HCC) Assessment: no meds, denies concerning symptoms Smoker Assessment: reports smoking 1 ppd x 4 years Frequent UTI Assessment: denies current symptoms, last infection about one month ago History of scoliosis Assessment: was followed as child/teenager at [facility]. Reports chronic pain. Farrell Activity Status [...] large neck Non-male patient STOP-Bang Score: 1 [id number] Score: [id number] Score: 0 ASA Class: 2 ANESTHESIA FINDINGS: [...] 12:33 PM PAGER/CONTACT #: documented in this encounterMckitrick Hospital03-08-2023 History of Present illness Narrative* Ricco Mullins [...] I had extensive conversations with our pediatric career professional, as well as interventional radiologist. There is [...] of SERVICE: 1:36 PM documented in this encounterMckitrick Hospital03-08-2023 Nurse Note* Soledad Mccarthy Ma - 11/28/2022 10:03 AM EST Tobacco Use: Yes Was smoking cessation packet given? Patient Declined Was a referral initiated?Patient declined. Spoke to Eb Hui, confirmed patient is registered on MyChart and is prepared for their appointment. Confirmed the patient has updated medications, allergies, and questionnaires via [employer]. Informed patient if there is an issue with the connection, provider will send the patient a secure link. If provider is running late, patient should remain connected to the visit. Patient verbalized understanding. documented in this encounterMckitrick Hospital02-27-2023 Miscellaneous Notes* Telephone Encounter - Dawna Magallon RN - 11/19/2022 4:01 PM EST Attempted to call patient back but unable to leave message due to mailbox being full. documented in this encounterMckitrick Hospital02-16-2023 Miscellaneous Notes* Telephone Encounter - Angelina Gloria RN - 11/08/2022 11:45 AM EST Patient notified. Will have HCG quant drawn. Patient's IUD was removed in [place] approximately 5 months ago. Angelina Gloria RN [...] level. Angelina Gloria RN documented in this encounterMckitrick Hospital05-27-2022 Miscellaneous Notes* Telephone Encounter - Shira Travis [...] last treated for BV 06/2021. Patient stated thatshe is not able to come in for an appointment d/t work schedule and is requesting a Rx for flagyl. documented in this encounterMckitrick Hospital04-18-2022 Miscellaneous Notes* Telephone Encounter - Angelina Gloria RN - 01/08/2022 10:32 AM EDT Received message from pharmacy regarding SYNALAR. Pharmacy comment: we are unable to get this medication from our suppliers. would you like to change it? documented in this encounterMckitrick Hospital04-13-2022 Miscellaneous Notes* Telephone Encounter - Angelina Gloria RN - 01/03/2022 12:42 PM EDT Patient notified. Voiced understanding. Will call back to schedule her 3 month follow-up. Health Dept form faxed. Angelina Gloria RN * Telephone Encounter - Jolanta Day RN - 01/03/2022 10:00 AM EDT RR stopped in office now and filed medication. Attempted to call patient, but mailbox is full. [employer] message sent to call office. Health department [...] absence. Jolanta Day RN documented in this encounterMckitrick Hospital04-12-2022 History of Present illness Narrative* Roberta Guthrie [...] apparent distress PELVIC: normal Bartholin's glands, urethra, Chiawuli Tak's glands, no vulvar lesions, no cervical lesions,good vaginal support, physiologic discharge present, normal appearing perineal body and perianal region, erythema on vulva, lichenification of skin, no hyper or hypopigmentation, no ulcers, no lesions, no induration, no discrete lesions BIMANUAL: uterus normal size, shape and consistency, no adnexal masses and non-tender. ASSESSMENT/PLAN: contact dermatitis of vulva- d/w her collections specialist skin hygeine. Steriod taper, avoid irritants. STI [...] 01/02/22. Roberta Guthrie MD documented in this encounterMckitrick Hospital04-20-2021 History of Present illness Narrative* Sanjana Panda [...] 10, 2021 2:41 PM documented in this encounterMckitrick Hospital12-31-2020 History of Past illness Narrative* Problem Noted Date Resolved Date Herpes 09/22/2020 12/19/2020 Overview: No known outbreak . IgM and IgG positive. 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.BUCKET TURNER Severe preeclampsia, third trimester 07/08/2019 08/21/2019 Overview: [...] of this encounter (statuses as of 01/02/2022) [facility] History of Past illness Narrative* Problem Noted Date Resolved Date Herpes 09/22/2020 12/19/2020 Overview: No known outbreak . IgM and IgG positive. 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.BUCKET TURNER Severe preeclampsia, third trimester 07/08/2019 08/21/2019 Overview: - Features being RUQ pain - BPs mild to severe on admission - CBC/CMP wnl on admission - Magnesium started at [place], currently running 2g/hr - Continue to monitor [...] 9.1 BV (bacterial vaginosis) 01/27/2019 019 Overview: 5/16/19-Flagyl 500mg PO BID x 7 days for [...] of this encounter (statuses as of 01/03/2022) [facility] History of Past illness Narrative* Problem Noted Date Resolved Date Herpes 09/22/2020 12/19/2020 Overview: No known outbreak . IgM and IgG positive. 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.BUCKET TURNER Severe preeclampsia, third trimester 07/08/2019 08/21/2019 Overview: [...] of this encounter (statuses as of 01/10/2022) [facility] History of Past illness Narrative* Problem Noted Date Resolved Date Herpes 09/22/2020 12/19/2020 Overview: No known outbreak . IgM and IgG positive. 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.BUCKET TURNER Severe preeclampsia, third trimester 07/08/2019 08/21/2019 Overview: - Features being RUQ pain - BPs mild to severe on admission - CBC/CMP wnl on admission - Magnesium started at [place], currently running 2g/hr - Continue to monitor [...] 7 days for BV treatment. Petty Rubalcava APRN.[facility] January 27, 2019 Treat next appointment, [...] of this encounter (statuses as of 01/10/2022) [facility] History of Past illness Narrative* Problem Noted Date Resolved Date Herpes 09/22/2020 12/19/2020 Overview: No known outbreak . IgM and IgG positive. 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.[employer] Severe preeclampsia, third trimester 07/08/2019 08/21/2019 Overview: [...] of this encounter (statuses as of 02/16/2022) [facility] History of Past illness Narrative* Problem Noted Date Resolved Date Herpes 09/22/2020 12/19/2020 Overview: No known outbreak . IgM and IgG positive. Lona Waters, RAMÓN.[employer] Severe preeclampsia, third trimester 07/08/2019 08/21/2019 Overview: [...] of this encounter (statuses as of 11/08/2022) [facility] History of Past illness Narrative* Problem Noted Date Resolved Date Herpes 09/22/2020 12/19/2020 Overview: No known outbreak . IgM and IgG positive. 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.[employer] Severe preeclampsia, third trimester 07/08/2019 08/21/2019 Overview: - Features being RUQ pain - BPs mild to severe on admission - CBC/CMP wnl on admission - Magnesium started at [place], currently running 2g/hr - Continue to monitor [...] of this encounter (statuses as of 11/28/2022) [facility] History of Past illness Narrative* Problem Noted Date Resolved Date Herpes 09/22/2020 12/19/2020 Overview: No known outbreak . IgM and IgG positive. Lona Waters, NETWORK SECURITY ANALYST.[employer] Severe preeclampsia, third trimester 07/08/2019 08/21/2019 Overview: - Features being RUQ pain - BPs mild to severe on admission - CBC/CMP wnl on admission - Magnesium started at [place], currently running 2g/hr - Continue to monitor [...] 7 days for BV treatment. Petty Rubalcava APRN.[facility] January 27, 2019 Treat next appointment, [...] of this encounter (statuses as of 12/06/2022) [facility] History of Past illness Narrative* Problem Noted Date Resolved Date Herpes 09/22/2020 12/19/2020 Overview: No known outbreak . IgM and IgG positive. 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.[employer] Severe preeclampsia, third trimester 07/08/2019 08/21/2019 Overview: [...] of this encounter (statuses as of 12/19/2022) [facility] History of Past illness Narrative* Problem Noted Date Resolved Date Herpes 09/22/2020 12/19/2020 Overview: No known outbreak . IgM and IgG positive. 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.[employer] Severe preeclampsia, third trimester 07/08/2019 08/21/2019 Overview: - Features being RUQ pain - BPs mild to severe on admission - CBC/CMP wnl on admission - Magnesium started at [place], currently running 2g/hr - Continue to monitor [...] of this encounter (statuses as of 01/04/2023) [facility] History of Past illness Narrative* Problem Noted Date Resolved Date Herpes 09/22/2020 12/19/2020 Overview: No known outbreak . IgM and IgG positive. 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.[employer] Severe preeclampsia, third trimester 07/08/2019 08/21/2019 Overview: - Features being RUQ pain - BPs mild to severe on admission - CBC/CMP wnl on admission - Magnesium started at [place], currently running 2g/hr - Continue to monitor [...] of this encounter (statuses as of 02/01/2023) [facility] History of Past illness Narrative* Problem Noted Date Resolved Date Herpes 09/22/2020 12/19/2020 Overview: No known outbreak . IgM and IgG positive. 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.[employer] Severe preeclampsia, third trimester 07/08/2019 08/21/2019 Overview: [...] of this encounter (statuses as of 02/02/2023) [facility] History of Past illness Narrative* Problem Noted Date Resolved Date Herpes 09/22/2020 12/19/2020 Overview: No known outbreak . IgM and IgG positive. 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.[employer] Severe preeclampsia, third trimester 07/08/2019 08/21/2019 Overview: [...] of this encounter (statuses as of 02/22/2023) [facility] History of Past illness Narrative* Problem Noted Date Resolved Date Herpes 09/22/2020 12/19/2020 Overview: No known outbreak . IgM and IgG positive. 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.[employer] Severe preeclampsia, third trimester 07/08/2019 08/21/2019 Overview: [...] of this encounter (statuses as of 02/22/2023) [facility] History of Past illness Narrative* Problem Noted Date Resolved Date Herpes 09/22/2020 12/19/2020 Overview: No known outbreak . IgM and IgG positive. 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.[employer] Severe preeclampsia, third trimester 07/08/2019 08/21/2019 Overview: [...] of this encounter (statuses as of 02/22/2023) [facility] History of Past illness Narrative* Problem Noted Date Diagnosed Date Resolved Date Herpes 09/22/2020 12/19/2020 Overview: No known outbreak . IgM and IgG positive. 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.[employer] Severe preeclampsia, third trimester 07/08/2019 08/21/2019 Overview: [...] of this encounter (statuses as of 04/24/2023) [facility] History of Past illness Narrative* Problem Noted Date Diagnosed Date Resolved Date Herpes 09/22/2020 12/19/2020 Overview: No known outbreak . IgM and IgG positive. 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.[employer] Severe preeclampsia, third trimester 07/08/2019 08/21/2019 Overview: - Features being RUQ pain - BPs mild to severe on admission - CBC/CMP wnl on admission - Magnesium started at [place], currently running 2g/hr - Continue to monitor [...] of this encounter (statuses as of 05/23/2023) [facility] History of Past illness Narrative* Problem Noted Date Diagnosed Date Resolved Date Herpes 09/22/2020 12/19/2020 Overview: No known outbreak . IgM and IgG positive. 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.[employer] Severe preeclampsia, third trimester 07/08/2019 08/21/2019 Overview: [...] of this encounter (statuses as of 06/14/2023) [facility] History of Past illness Narrative* Problem Noted Date Diagnosed Date Resolved Date Herpes 09/22/2020 12/19/2020 Overview: No known outbreak . IgM and IgG positive. 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 IgM and IgG positive. 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.[employer] Severe preeclampsia, third trimester 07/08/2019 08/21/2019 Overview: [...] of this encounter (statuses as of 07/17/2023) [facility] History of Past illness Narrative* Problem Noted Date Diagnosed Date Resolved Date Herpes 09/22/2020 12/19/2020 Overview: No known outbreak . IgM and IgG positive. 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.[employer] Severe preeclampsia, third trimester 07/08/2019 08/21/2019 Overview: [...] of this encounter (statuses as of 08/22/2023) [facility] History of Past illness Narrative* Problem Noted Date Diagnosed Date Resolved Date Herpes 09/22/2020 12/19/2020 Overview: No known outbreak . IgM and IgG positive. 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.[employer] Severe preeclampsia, third trimester 07/08/2019 08/21/2019 Overview: [...] of this encounter (statuses as of 11/03/2023) [facility] History of Past illness Narrative* Problem Noted Date Diagnosed Date Resolved Date Herpes 09/22/2020 12/19/2020 Overview: No known outbreak . IgM and IgG positive. Lona Waters, RAMÓN.[employer] Severe preeclampsia, third trimester 07/08/2019 08/21/2019 Overview: - Features being RUQ pain - BPs mild to severe on admission - CBC/CMP wnl on admission - Magnesium started at [place], currently running 2g/hr - Continue to monitor [...] of this encounter (statuses as of 12/24/2023) [facility] History of Past illness Narrative* Problem Noted Date Diagnosed Date Resolved Date Herpes 09/22/2020 12/19/2020 Overview: No known outbreak . IgM and IgG positive. 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.[employer] Severe preeclampsia, third trimester 07/08/2019 08/21/2019 Overview: - Features being RUQ pain - BPs mild to severe on admission - CBC/CMP wnl on admission - Magnesium started at [place], currently running 2g/hr - Continue to monitor [...] of this encounter (statuses as of 12/24/2023) [facility] note Author Eunice Pereira [facility] Note Date/Time December 17, 2024 10: 31am [facility] Medical Records Department [address] [place] [address] Anesthesia Postop Eval I 12/17/24 1022 MR#: [id number] Acct: [id number] Name: EB HUI Rep #:[id number] : 2000 24 From: Eunice Pereira CRNA PCP: JEIMY Abrams Status: REG SDC Y Race: C Location: [place] [address] Anesthesia: Postop Eval I Current Vital Signs [...] Yes 12/17/24 1031 <Electronically signed by Eunice TORRES NA> Date _ Eunice Pereira CRNA Cosigner Signature: Date CC: ~ Signed [facility] Work Phone: Discharge summary Author Nella Escalera [facility] Note Date/Time December 17, 2024 11: 24am [facility] Medical Records Department [address] [place] [address] Instructions for Home/Discharge Instructions 12/17/24 1019 MR#: [id number] Acct: [id number] Name: EB HUI Rep #:[id number] : 2000 24 From: Nella Hood MD [...] if you need an appointment please call [phone] Test Results: Test results from this visit will be discussed in further detail at your follow- up appointment, if applicable. Discharge Plan Admission Attending Provider: Nella Ward Primary Care Provider: Petty Vasquez Instructions Print Language: Zambian Discharge Orders/Prescriptions Prescriptions: No Action alprazolam 0.5 mg tablet 0.5 mg PO PRN Other Ambulatory Orders: ,Urine (Routine) Timeframe: 20241217 Facility: [facility] - Location: Laboratory Ordered By: Dr. Jamey Lilly Referrals / Follow Up: Petty Vasquez NP-C [Primary Care Provider] - Disposition Disposition (needs filled in before D/C Order can be placed): Home, Self Care 12/17/24 1019<Electronically signed by Nella Ward MD>Nella Ward MD CC: [employer] WORKER-C NP. Petty Vasquez ~ Signed [facility] Work Phone: Evaluation note* Diagnosis Vaginal irritation- Primary Unspecified noninflammatory disorder of vagina Irritant contact dermatitis, unspecified trigger documented in this encounter [facility] noteNo assessment information availableWTuscarawas Hospital Work Phone: Evaluation note* Diagnosis Positive urine test- Primary examination or test, positive result documented in this encounter [facility] note* Diagnosis Oropharyngeal lesion- Primary Unspecified disease of pharynx documented in this encounter [facility] note* Diagnosis AVM (arteriovenous malformation)- Primary Congenital anomaly of the peripheral vascular system, unspecified site [facility] Diagnosis Pre-op evaluation- Primary Preoperative examination, unspecified AVM (arteriovenous malformation) Congenital anomaly of the peripheral vascular system, unspecified site Mild major depression (HCC) Major depressive disorder, single episode, mild Smoker Tobacco use disorder Frequent UTI Urinary tract infection, site not specified History of scoliosis Personal history of other musculoskeletal disorders [facility] Diagnosis Pruritus- Primary Unspecified pruritic disorder [facility] this [facility] Diagnosis Burning with urination- Primary Dysuria Screening for STD (sexually transmitted disease) Screening examination for venereal disease Vaginal discharge Leukorrhea, not specified as infective documented [facility] this encounter [facility]* Diagnosis Chlamydia- Primary Unspecified chlamydial infection, in conditions classified elsewhere and of unspecified site BV (bacterial vaginosis) Vaginitis and vulvovaginitis, unspecified Vaginal yeast infection Candidiasis of vulva and vagina documented [facility] this encounter [facility] Diagnosis Vaginal discharge- Primary Leukorrhea, not specified as infective [facility] Diagnosis Chlamydia- Primary Unspecified chlamydial infection, in conditions classified elsewhere and of unspecified site BV (bacterial vaginosis) Vaginitis and vulvovaginitis, unspecified [facility] Diagnosis Onset Date Resolution Status Encounter for pre-employment health screening examination [facility] Work Phone: Evaluation note* Diagnosis Screening for HIV (human immunodeficiency virus)- Primary Special screening examination for other specified viral diseases documented in this encounter [facility] note* Diagnosis Viral illness- Primary Unspecified viral infection, in conditions classified elsewhere and of unspecified site Hemoptysis Hemoptysis, unspecified [facility] Diagnosis Lower respiratory tract infection- Primary Other diseases of respiratory system, not elsewhere classified [facility] Diagnosis Lower resp. tract infection- Primary Other diseases of respiratory system, not elsewhere classified documented [facility] this encounter [facility]* Diagnosis Encounter for sexually transmitted disease counseling- Primary Counseling on other sexually transmitted diseases Dysuria Vaginal discharge Leukorrhea, not specified as infective [facility] Diagnosis Oropharyngeal mass Swelling, mass, or [...] Hemoptysis Hemoptysis, unspecified [facility] this [facility]* Diagnosis Cough Chest pain, unspecified type Pre-op evaluation- Primary Preoperative examination, unspecified AVM (arteriovenous malformation) Congenital anomaly of the peripheral vascular system, unspecified site Mild major depression (HCC) Major depressive disorder, single episode, mild Smoker Tobacco use disorder Frequent UTI Urinary tract infection, site not specified History of scoliosis Personal history of other musculoskeletal disorders [facility] Diagnosis Oropharyngeal mass Swelling, mass, or [...] both breasts- Primary [facility] Diagnosis Oropharyngeal mass Swelling, mass, or [...] nonspecific immunological findings [facility] this encounter [facility]* Diagnosis Oropharyngeal mass Swelling, mass, or [...] high-risk sexual behavior [facility] Diagnosis Oropharyngeal mass Swelling, mass, or [...] of corpus uteri [facility] Diagnosis Oropharyngeal mass Swelling, mass, or [...] of unspecified site [facility] Diagnosis Oropharyngeal mass Swelling, mass, or [...] Preoperative examination, unspecified [facility] instructions Additional Instructions Plenty of fluids and rest. Warm salt water gargling. Chloraseptic spray to help with the sore throat. Prednisone daily for the inflammation. Return if worse. Follow-up with ear nose and throat Dr. Arnaldo Vasquez if the inflammation in posterior pharynx does not improve.[facility] Work Phone: Hospital Discharge instructions Additional Instructions Ice all sore areas Alternate Tylenol and Motrin for pain and swelling. Follow-up with your doctor as needed.[facility] Work Phone: Hospital Discharge instructions Additional Instructions [...] care physician for further outpatient evaluation and management.[facility] Work Phone: Hospital Discharge instructionsAdditional Instructions Thank you for trusting us with your care today! Please take Tylenol (2 pills, 650 mg), ibuprofen (2 pills, 400 mg) every 6 hours as needed for pain and fever control. Please go to local pharmacy or drugstore and obtain Pepcid as well as one of the following: Claritin, Zyrtec or Benadryl. Benadryl is more sedating so if you are going to be active study or going to class please take Claritin or Zyrtec. In addition please take Pepcid daily for the next 5 days for anti-inflammatory effect. Please return to the emergency department if your symptoms change or worsen. Please follow with your primary care physician for further outpatient evaluation and management.[facility] Work Phone: Reason for referral (narrative)* Diagnostic Procedure Only (Routine) - Authorized Specialty Diagnoses / Procedures Referred By Contac t Referred To Contact [facility] Diagnoses Abnormal uterine bleeding (AUB) Procedures PELVIC US I US PELVIC NONOBSTETRIC REAL-TIME IMAGE COMPLETE Petty Rubalcava APRN.IRA [address] [place] [address] [facility] [address] [place] [address] Referral ID Status Reason Start Date Expiration Date Visits Requested Visits Authorized [id number] Authorized Auto-Generat ed Referral 10/26/2024 10/26/2025 1 1 * Physical Therapy (Routine) - Pending Review Specialty Diagnoses / Procedures Referred By Contac t Referred To Contact [facility] Diagnoses Dysuria Procedures CONSULT TO PHYSICAL THERAPY PHYSICAL THERAPY [facility] HIGH COMPLEX 45 MINS Petty Rubalcava APRN.CNM [address] [place] [address] [facility] [place] [address] [place] [address] Referral ID Status Reason Start Date Expiration Date Visits Requested Visits Authorized [id number] Pending Review Auto-Generat ed Referral 10/26/2024 10/26/2025 1 1 * Consult, Test, Treat (Routine) - Authorized Specialty Diagnoses / Procedures Referred By Napoleon t Referred To Contact Urology Diagnoses Dysuria Procedures CONSULT TO UROLOGY OFFICE/OUTPATIENT [facility] MDM 60 MINUTES Petty Rubalcava APRN.CNM [address] [place] [address] Referral ID Status Reason Start Date Expiration Date Visits Requested Visits Authorized [id number] Authorized PCP Requested Referral 10/26/2024 10/26/2025 1 1 [facility]No reason for referral information availableWTuscarawas Hospital Work Phone: Reason for visit Narrative* Diagnostic Procedure Only (Routine) - Closed Specialty Diagnoses / Procedures Referred By Napoleon t Referred To Contact [facility] Diagnoses Abnormal uterine bleeding (AUB) Procedures PELVIC US WHI US PELVIC NONOBSTETRIC REAL-TIME IMAGE COMPLETE Petty Rubalcava APRN.CNM [address] [place] [address] [facility] [address] [place] [address] Referral ID Status Reason Start Date Expiration Date V isits Requested Visits Authorized [id number] Closed Auto-Generate d Referral 10/26/2024 10/26/2025 1 1 [facility] Summary Purpose Family History No Family History [...] Documents on File Type Date Recorded 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 Advance Directive(s) 07/08/2019 12:38 PM Documents on File Type Date Recorded 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 Advance Directive(s) 07/08/2019 12:38 PM Advance Directive Response Recorded Date/ Time Living Will No September 16 9:55pm Power of Sales Representative Education Courses No September 16, 2022 9:55pm Advance Directive Response Recorded Date/ Time Living Will No March 03, 2023 10:02am Power of Sales Representative Education Courses No March 03 10:02am Advance Directive Response Recorded Date/ Time Living Will No June 12, 2023 6:49am Power of Sales Representative Education Courses No May 6:49am Advance Directive Response Recorded Date/ Time Living Will No July 28 9:52pm Power of Sales Representative Education Courses No July 28, 2023 9:52pm Advance Directive Response Recorded Date/ Time Living Will No December 11, 2024 8:51am Do you have a Healthcare Power of Sales Representative Education Courses? No December 11, 2024 8:51am Advance Directive Response Recorded Date/ Time Do you have a Healthcare Power of Sales Representative Education Courses? No April 07, 2025 11:36pm Living Will No December 11, 2024 8:51am Do you have a Healthcare Power of Sales Representative Education Courses? No December 11, 2024 8:51am Advance Directive Response Recorded Date/ Time Do you have a Healthcare Power of Sales Representative Education Courses? No April 07, 2025 11:36pm Hospital Course Note Discharge Summary Eb Hui : 2000 ADMIT DATE: 12/06/2020 DISCHARGE DATE: 12/06/2020 PRIMARY CARE PHYSICIAN: No primary care provider on file. VISIT STATUS: Observation CODE STATUS: Full Code DISCHARGE DIAGNOSES: Active Problems: Pharyngitis, acute Resolved Problems: * No resolved hospital problems. * mononucleosis HOSPITAL COURSE: Eb is a 20 y.o. female ?with past medical history significant for mono presents to [facility] with a CC of difficulty swallowing since . She tested positive for mononucleosis and strep culture was negative.?? Patient initially presented to [facility] on 12/[address] neck which demonstrated ill-defined mass from the R palantine tonsil to the R pterygoid muscle, no abcess was appreciated. She was started on dexamethasone and transferred to [facility] for ENT evaluation. Eb Hui is a 20 y.o. female here for painful swallowing most likely due to mono which she was diagnosed with on 11/29/20. CT reviewed shows homoge (more content not included)... Assessments Diagnosis Pharyngitis, acute Acute pharyngitis Mononucleosis Infectious mononucleosis Reason for Referral Specialty Diagnoses / Procedures Referred By Napoleon chase Referred To Contact Roberta Guthrie MD [address] [facility] [place] [address] Referral ID Status Reason Start Date Expiration Date Visits Re quested Visits Authorized [id number] Closed 1 1 Specialty Diagnoses / Procedures Referred By Napoleon chase Referred To Contact Diagnoses AVM (arteriovenous malformation) Procedures REFER TO PACC - PRE ANESTHESIA CONSULTATION CLINIC OFFICE/OUTPATIENT [facility] 60-74 MINUTES Aliya Mcdaniels MD [address] [place] [address] Referral ID Status Reason Start Date Expiration Date Visits Requested Visits Authorized [id number] Authorized PCP Requested Referral 12/19/2022 12/19/2023 1 1 Specialty Diagnoses / Procedures Referred By Napoleon chase Referred To Contact Dermatology Diagnoses Pruritus Procedures CONSULT TO DERMATOLOGY Aliya Mcdaniels MD [address] [place] [address] Referral ID Status Reason Start Date Expiration Date Visits Requested Visits Authorized [id number] Ref Not Required PCP Requested Referral 02/01/2023 [...] Chief Complaint Admit Date Hysteroscopy,Dilation and Curettage [facility] 2024 8:06am Chief Complaint Admit Date Hysteroscopy,Dilation and Curettage [facility] 2024 8:06am YEAST INFECTION February 23, 2025 6:13a m Chief Complaint Admit Date Hysteroscopy,Dilation and Curettage [facility] 2024 8:06am YEAST INFECTION February 23, 2025 6:13a m SORE ON LIP/ COLD SORE? March 01, 2025 2 :16pm Reason for Visit Admit Date Yeast infection February 23, 2025 6:13a m Chief Complaint Admit Date Hysteroscopy,Dilation and Curettage [facility] 2024 8:06am YEAST INFECTION February 23, 2025 6:13a m SORE ON LIP/ COLD SORE? March 01, 2025 2 :16pm rash April 07, 2025 11:1 1pm Reason for Visit Admit Date Yeast infection February 23, 2025 6:13a m Angular cheilitis March 01, 2025 2:16p m Chief Complaint Admit Date YEAST INFECTION February 23, 2025 6:13a m SORE ON LIP/ COLD SORE? March 01, 2025 2 :16pm rash April 07, 2025 11:1 1pm YEAST INFECTION May 19, 2025 7: 07am Additional Source Comments INFORMATION SOURCE (unrecogn ized section and content) DATE CREATED AUTHOR 03/11/2018 [facility] DATE CREATED AUTHOR AUTHOR'S ORGANIZ ATION 05/09/2018 [facility] DATE CREATED AUTHOR AUTHOR'S ORGANIZ ATION 07/11/2019 [facility] DATE CREATED AUTHOR AUTHOR'S ORGANIZ ATION 07/30/2019 [facility] DATE CREATED AUTHOR AUTHOR'S ORGANIZ ATION 12/13/2020 [facility] DATE CREATED AUTHOR AUTHOR'S ORGANIZ ATION 07/07/2021 [facility] DATE CREATED AUTHOR AUTHOR'S ORGANIZ ATION 12/14/2021 [facility] DATE CREATED AUTHOR AUTHOR'S ORGANIZ ATION 01/07/2023 [facility] DATE CREATED AUTHOR AUTHOR'S ORGANIZ ATION 05/16/2025 [facility] DATE CREATED AUTHOR AUTHOR'S ORGANIZ ATION 05/16/2025 [facility] DATE CREATED AUTHOR AUTHOR'S ORGANIZ ATION 05/20/2025 [facility] Ordered Prescriptions (unrec ognized section and [...] or prosecute any alcohol or drug abuse patient.[facility] HospitalIn the event this information is protected by the Federal Confidentiality of Alcohol and Drug Abuse Patient Records regulations: The Federal rules restrict any use of the information to criminally investigate or prosecute any alcohol or drug abuse patient.[facility] HospitalIn the event this information is protected by the Federal Confidentiality of Alcohol and Drug Abuse Patient Records regulations: The Federal rules restrict any use of the information to criminally investigate or prosecute any alcohol or drug abuse patient.[facility] HospitalIn the event this information is protected by the Federal Confidentiality of Alcohol and Drug Abuse Patient Records regulations: The Federal rules restrict any use of the information to criminally investigate or prosecute any alcohol or drug abuse patient.[facility] HospitalIn the event this information is protected by the Federal Confidentiality of Alcohol and Drug Abuse Patient Records regulations: The Federal rules restrict any use of the information to criminally investigate or prosecute any alcohol or drug abuse patient.[facility] HospitalIn the event this information is protected by the Federal Confidentiality of Alcohol and Drug Abuse Patient Records regulations: The Federal rules restrict any use of the information to criminally investigate or prosecute any alcohol or drug abuse patient.[facility] HospitalIn the event this information is protected by the Federal Confidentiality of Alcohol and Drug Abuse Patient Records regulations: The Federal rules restrict any use of the information to criminally investigate or prosecute any alcohol or drug abuse patient.[facility] HospitalIn the event this information is protected by the Federal Confidentiality of Alcohol and Drug Abuse Patient Records regulations: The Federal rules restrict any use of the information to criminally investigate or prosecute any alcohol or drug abuse patient.[facility] HospitalIn the event this information is protected by the Federal Confidentiality of Alcohol and Drug Abuse Patient Records regulations: The Federal rules restrict any use of the information to criminally investigate or prosecute any alcohol or drug abuse patient.[facility] HospitalIn the event this information is protected by the Federal Confidentiality of Alcohol and Drug Abuse Patient Records regulations: The Federal rules restrict any use of the information to criminally investigate or prosecute any alcohol or drug abuse patient.[facility] HospitalIn the event this information is protected by the Federal Confidentiality of Alcohol and Drug Abuse Patient Records regulations: The Federal rules restrict any use of the information to criminally investigate or prosecute any alcohol or drug abuse patient.[facility] HospitalIn the event this information is protected by the Federal Confidentiality of Alcohol and Drug Abuse Patient Records regulations: The Federal rules restrict any use of the information to criminally investigate or prosecute any alcohol or drug abuse patient.[facility] HospitalIn the event this information is protected by the Federal Confidentiality of Alcohol and Drug Abuse Patient Records regulations: The Federal rules restrict any use of the information to criminally investigate or prosecute any alcohol or drug abuse patient.[facility] HospitalIn the event this information is protected by the Federal Confidentiality of Alcohol and Drug Abuse Patient Records regulations: The Federal rules restrict any use of the information to criminally investigate or prosecute any alcohol or drug abuse patient.[facility] HospitalIn the event this information is protected by the Federal Confidentiality of Alcohol and Drug Abuse Patient Records regulations: The Federal rules restrict any use of the information to criminally investigate or prosecute any alcohol or drug abuse patient.[facility] HospitalIn the event this information is protected by the Federal Confidentiality of Alcohol and Drug Abuse Patient Records regulations: The Federal rules restrict any use of the information to criminally investigate or prosecute any alcohol or drug abuse patient.[facility] HospitalIn the event this information is protected by the Federal Confidentiality of Alcohol and Drug Abuse Patient Records regulations: The Federal rules restrict any use of the information to criminally investigate or prosecute any alcohol or drug abuse patient.[facility] HospitalIn the event this information is protected by the Federal Confidentiality of Alcohol and Drug Abuse Patient Records regulations: The Federal rules restrict any use of the information to criminally investigate or prosecute any alcohol or drug abuse patient.[facility] HospitalIn the event this information is protected by the Federal Confidentiality of Alcohol and Drug Abuse Patient Records regulations: The Federal rules restrict any use of the information to criminally investigate or prosecute any alcohol or drug abuse patient.[facility] HospitalIn the event this information is protected by the Federal Confidentiality of Alcohol and Drug Abuse Patient Records regulations: The Federal rules restrict any use of the information to criminally investigate or prosecute any alcohol or drug abuse patient.[facility] HospitalIn the event this information is protected by the Federal Confidentiality of Alcohol and Drug Abuse Patient Records regulations: The Federal rules restrict any use of the information to criminally investigate or prosecute any alcohol or drug abuse patient.[facility] HospitalIn the event this information is protected by the Federal Confidentiality of Alcohol and Drug Abuse Patient Records regulations: The Federal rules restrict any use of the information to criminally investigate or prosecute any alcohol or drug abuse patient.[facility] HospitalIn the event this information is protected by the Federal Confidentiality of Alcohol and Drug Abuse Patient Records regulations: The Federal rules restrict any use of the information to criminally investigate or prosecute any alcohol or drug abuse patient.[facility] HospitalIn the event this information is protected by the Federal Confidentiality of Alcohol and Drug Abuse Patient Records regulations: The Federal rules restrict any use of the information to criminally investigate or prosecute any alcohol or drug abuse patient.[facility] HospitalIn the event this information is protected by the Federal Confidentiality of Alcohol and Drug Abuse Patient Records regulations: The Federal rules restrict any use of the information to criminally investigate or prosecute any alcohol or drug abuse patient.[facility] HospitalIn the event this information is protected by the Federal Confidentiality of Alcohol and Drug Abuse Patient Records regulations: The Federal rules restrict any use of the information to criminally investigate or prosecute any alcohol or drug abuse patient.[facility] HospitalIn the event this information is protected by the Federal Confidentiality of Alcohol and Drug Abuse Patient Records regulations: The Federal rules restrict any use of the information to criminally investigate or prosecute any alcohol or drug abuse patient.[facility] HospitalIn the event this information is protected by the Federal Confidentiality of Alcohol and Drug Abuse Patient Records regulations: The Federal rules restrict any use of the information to criminally investigate or prosecute any alcohol or drug abuse patient.[facility] HospitalIn the event this information is protected by the Federal Confidentiality of Alcohol and Drug Abuse Patient Records regulations: The Federal rules restrict any use of the information to criminally investigate or prosecute any alcohol or drug abuse patient.[facility] HospitalIn the event this information is protected by the Federal Confidentiality of Alcohol and Drug Abuse Patient Records regulations: The Federal rules restrict any use of the information to criminally investigate or prosecute any alcohol or drug abuse patient.[facility] HospitalIn the event this information is protected by the Federal Confidentiality of Alcohol and Drug Abuse Patient Records regulations: The Federal rules restrict any use of the information to criminally investigate or prosecute any alcohol or drug abuse patient.[facility] HospitalIn the event this information is protected by the Federal Confidentiality of Alcohol and Drug Abuse Patient Records regulations: The Federal rules restrict any use of the information to criminally investigate or prosecute any alcohol or drug abuse patient.[facility] HospitalIn the event this information is protected by the Federal Confidentiality of Alcohol and Drug Abuse Patient Records regulations: The Federal rules restrict any use of the information to criminally investigate or prosecute any alcohol or drug abuse patient.[facility] HospitalIn the event this information is protected by the Federal Confidentiality of Alcohol and Drug Abuse Patient Records regulations: The Federal rules restrict any use of the information to criminally investigate or prosecute any alcohol or drug abuse patient.[facility] HospitalIn the event this information is protected by the Federal Confidentiality of Alcohol and Drug Abuse Patient Records regulations: The Federal rules restrict any use of the information to criminally investigate or prosecute any alcohol or drug abuse patient.[facility] HospitalIn the event this information is protected by the Federal Confidentiality of Alcohol and Drug Abuse Patient Records regulations: The Federal rules restrict any use of the information to criminally investigate or prosecute any alcohol or drug abuse patient.[facility] HospitalIn the event this information is protected by the Federal Confidentiality of Alcohol and Drug Abuse Patient Records regulations: The Federal rules restrict any use of the information to criminally investigate or prosecute any alcohol or drug abuse patient.[facility] HospitalIn the event this information is protected by the Federal Confidentiality of Alcohol and Drug Abuse Patient Records regulations: The Federal rules restrict any use of the information to criminally investigate or prosecute any alcohol or drug abuse patient.[facility] HospitalIn the event this information is protected by the Federal Confidentiality of Alcohol and Drug Abuse Patient Records regulations: The Federal rules restrict any use of the information to criminally investigate or prosecute any alcohol or drug abuse patient.[facility] HospitalIn the event this information is protected by the Federal Confidentiality of Alcohol and Drug Abuse Patient Records regulations: The Federal rules restrict any use of the information to criminally investigate or prosecute any alcohol or drug abuse patient.[facility] Reason for Visit (unrecogniz ed section and [...] PACC - PRE ANESTHESIA CONSULTATION CLINIC OFFICE/OUTPATIENT [facility] 60-74 MINUTES Aliya Mcdaniels MD [address] [place] [address] Referral ID Status Reason Start Date Expiration Date V isits Requested Visits Authorized [id number] Closed PCP Requested Referral 12/19/2022 12/19/2023 1 [...] Care Teams (unrecognized sec tion and content) [employer] Machine Assembler Relationship Specialty Start Date End Date Carolann Matthew [address] [place] [address] PCP - General Pediatrics 06/21/17 [employer] Machine Assembler Relationship Specialty Start Date End Date Carolann Matthew [address] [place] [address] PCP - General Pediatrics 06/21/17 [employer]ox Machine Assembler Relationship Specialty Start Date End Date Carolann Matthew [address] [facility] [place] [address] PCP - General Pediatrics 06/21/17 Xerox Machine Assembler Relationship Specialty Start Date End Date Carolann Matthew [address] [facility] [place] [address] PCP - General Pediatrics 06/21/17 [employer]ox Machine Assembler Relationship Specialty Start Date End Date Carolann Matthew [address] [place] [address] PCP - General Pediatrics 06/21/17 X[employer]ox Machine Assembler Relationship Specialty Start Date End Date Carolann Matthew [address] [place] [address] PCP - General Pediatrics 06/21/17 Xerox Machine Assembler Relationship Specialty Start Date End Date Carolann Matthew [address] [place] [address] PCP - General Pediatrics 06/21/17 Xerox Machine Assembler Relationship Specialty Start Date End Date Carolann Matthew [address] [place] [address] PCP - General Pediatrics 06/21/17 [employer] Machine Assembler Relationship Specialty Start Date End Date Melquiades Quintanilla, NETWORK SECURITY ANALYST.BUCKET TURNER [address] [place] [address] PCP - General Internal Medicine 01/03/23 [employer] Machine Assembler Relationship Specialty Start Date End Date Melquiades Quintanilla, NETWORK SECURITY ANALYST.BUCKET TURNER [address] [place] [address] PCP - General Internal Medicine 01/03/23 [employer]ox Machine Assembler Relationship Specialty Start Date End Date Melquiades Quintanilla, NETWORK SECURITY ANALYST.BUCKET TURNER [address] [place] [address] PCP - General Internal Medicine 01/03/23 [employer]ox Machine Assembler Relationship Specialty Start Date End Date Melquiades Quintanilla, NETWORK SECURITY ANALYST.BUCKET TURNER [address] [place] [address] PCP - General Internal Medicine 01/03/23 X[employer]ox Machine Assembler Relationship Specialty Start Date End Date Melquiades Quintanilla, NETWORK SECURITY ANALYST.BUCKET TURNER [address] [place] [address] PCP - General Internal Medicine 01/03/23 [employer]ox Machine Assembler Relationship Specialty Start Date End Date Melquiades Quintanilla, NETWORK SECURITY ANALYST.BUCKET TURNER [address] [place] [address] PCP - General Internal Medicine 01/03/23 Team Status: Active Member Role Status Dates Dr. Carolann Matthew MD Family Provider Active No Primary Care Physician Primary Care Provider Active Team Status: Inactive Member Role Status Dates No Primary Care Physician Primary Care Provider Active Dr. Rodo Lund MD Emergency Provider Active [employer] Machine Assembler Relationship Specialty Start Date End Date Melquiades Quintanilla, NETWORK SECURITY ANALYST.BUCKET TURNER [address] [place] [address] PCP - General Internal Medicine 01/03/23 [employer]erox Machine Assembler Relationship Specialty Start Date End Date Melquiades Quintanilla, NETWORK SECURITY ANALYST.BUCKET TURNER [address] [place] [address] PCP - General Internal Medicine 01/03/23 [employer]ox Machine Assembler Relationship Specialty Start Date End Date Melquiades Quintanilla, NETWORK SECURITY ANALYST.BUCKET TURNER [address] [place] [address] PCP - General Internal Medicine 01/03/23 Team Status: Active Member Role Status Dates Dr. Carolann Matthew MD Family Provider Active EXTRUSION UTILITY WORKER. Petty Vasquez NP-C Primary Care Provider Activ [...] Dr. Christian Callahan DO Emergency Provider Active EXTRUSION UTILITY WORKER. Petty Vasquez EXTRUSION UTILITY WORKER-C Primary Care Provider Activ e [employer] Machine Assembler Relationship Specialty Start Date End Date Melquiades Quintanilla, NETWORK SECURITY ANALYST.BUCKET TURNER [address] [place] [address] PCP - General Internal Medicine 01/03/23 Team Status: Inactive Member Role Status Dates Dr. Christian Callahan , DO Attending Provider, Emergency Pro vider Active EXTRUSION UTILITY WORKER. Petty Vasquez , EXTRUSION UTILITY WORKER-C Primary Care Provider Activ e Team Status: Inactive Member Role Status Dates NP. Petty Vasquez , EXTRUSION UTILITY WORKER-C Primary Care Provider Activ e Dr. Alden Miner , DO Emergency Provider Active [employer] Machine Assembler Relationship Specialty Start Date End Date Melquiades Quintanilla, NETWORK SECURITY ANALYST.BUCKET TURNER [address] [place] [address] PCP - General Internal Medicine 01/03/23 Xerox Machine Assembler Relationship Specialty Start Date End Date Melquiades Quintanilla, NETWORK SECURITY ANALYST.BUCKET TURNER [address] [place] [address] PCP - General Internal Medicine 01/03/23 Xerox Machine Assembler Relationship Specialty Start Date End Date Melquiades Quintanilla, NETWORK SECURITY ANALYST.BUCKET TURNER [address] [place] [address] PCP - General Internal Medicine 01/03/23 Xerox Machine Assembler Relationship Specialty Start Date End Date Melquiades Quintanilla, NETWORK SECURITY ANALYST.BUCKET TURNER [address] [place] [address] PCP - General Internal Medicine 01/03/23 Xerox Machine Assembler Relationship Specialty Start Date End Date Melquiades Quintanilla, NETWORK SECURITY ANALYST.BUCKET TURNER [address] [place] [address] PCP - General Internal Medicine 01/03/23 Xerox Machine Assembler Relationship Specialty Start Date End Date Melquiades Quintanilla, NETWORK SECURITY ANALYST.BUCKET TURNER [address] [place] [address] PCP - General Internal Medicine 01/03/23 Xerox Machine Assembler Relationship Specialty Start Date End Date Carolann Matthew MD [address] [place] [address] PCP - General Pediatrics 06/21/17 01/02/23 Xerox Machine Assembler Relationship Specialty Start Date End Date Melquiades Quintanilla, NETWORK SECURITY ANALYST.BUCKET TURNER [address] [place] [address] PCP - General Internal Medicine 01/03/23 Xerox Machine Assembler Relationship Specialty Start Date End Date Melquiades Quintanilla, NETWORK SECURITY ANALYST.BUCKET TURNER [address] [place] [address] PCP - General Internal Medicine 01/03/23 Xerox Machine Assembler Relationship Specialty Start Date End Date Melquiades Quintanilla, NETWORK SECURITY ANALYST.BUCKET TURNER [address] [place] [address] PCP - General Internal Medicine 01/03/23 Xerox Machine Assembler Relationship Specialty Start Date End Date Melquiades Quintanilla, NETWORK SECURITY ANALYST.BUCKET TURNER [address] [place] [address] PCP - General Internal Medicine 01/03/23 Xerox Machine Assembler Relationship Specialty Start Date End Date Melquiades Quintanilla, NETWORK SECURITY ANALYST.BUCKET TURNER [address] [place] [address] PCP - General Internal Medicine 01/03/23 Xerox Machine Assembler Relationship Specialty Start Date End Date Melquiades Quintanilla, NETWORK SECURITY ANALYST.BUCKET TURNER [address] [place], [place] [address] PCP - General Internal Medicine 01/03/23 Team Status: Active Member Role Status Dates JEIMY Abrams Primary Care Provider Activ e Team Status: Inactive Member Role Status Dates NP. Petty Vasquez NP-Yoanna Primary Care Provider Activ e Start: December 17, 2024 End: December 17, 2024 Dr. Nella Ward MD Attending Provider Ac tive Start: December 17, 2024 End: December 17, 2024 Dr. Nella Ward MD Referring Provider Ac tive Start: December 17, 2024 End: December 17, 2024 [employer]ox Machine Assembler Relationship Specialty Start Date End Date Melquiades Quintanilla, RAMÓN.BUCKET TURNER [address] [facility] [address] [place] [address] PCP - General Internal Medicine 01/03/23 Team Status: Active Member Role Status Dates Petty Vasquez , EXTRUSION UTILITY WORKER-C Primary Care Provider Active Team Status: Inactive Member Role Status Dates Petty Lopezr , EXTRUSION UTILITY WORKER-C Primary Care Provider Active Start: December 17, 2024 End: December 17, 2024 Dr. Nella Ward MD Attending Provider Ac tive Start: December 17, 2024 End: December 17, 2024 Dr. Nella Ward MD Referring Provider Ac tive Start: December 17, 2024 End: December 17, 2024 Team Status: Inactive Member Role Status Dates Petty Ungerer , EXTRUSION UTILITY WORKER-C Primary Care Provider Active Start: February 23, 2025 End: February 23, 2025 Petty Ungerer , EXTRUSION UTILITY WORKER-C Referring Provider Active Start: February 23, 2025 End: February 23, 2025 SARINA Darnell Attending Provider Active Sta rt: February 23, 2025 End: February 23, 2025 Team Status: Inactive Member Role Status Dates Petty Ungerer , EXTRUSION UTILITY WORKER-C Primary Care Provider Active Start: March 01, 2025 End: March 01, 2025 Petty Ungerer , EXTRUSION UTILITY WORKER-C Referring Provider Active Start: March 01, 2025 End: March 01, 2025 SARINA Darnell Attending Provider Active Sta rt: March 01, 2025 End: March 01, 2025 Team Status: Active Member Role/Relationship Status Dates Melquiades Quintanilla NP, EXTRUSION UTILITY WORKER-C Primary Care Provider Active Team Status: Inactive Member Role/Relationship Status Dates Petty Vasquez , EXTRUSION UTILITY WORKER-C Primary Care Provider Active Start: December 17, 2024 End: December 17, 2024 Dr. Nella Ward MD Attending Provider Ac tive Start: December 17, 2024 End: December 17, 2024 Dr. Nella Ward MD Referring Provider Ac tive Start: December 17, 2024 End: December 17, 2024 Team Status: Inactive Member Role/Relationship Status Dates Petty Ungerer , EXTRUSION UTILITY WORKER-C Primary Care Provider Active Start: February 23, 2025 End: February 23, 2025 Petty Ungerer , EXTRUSION UTILITY WORKER-C Referring Provider Active Start: February 23, 2025 End: February 23, 2025 Tomás BRANCH PA Attending Provider Active Sta rt: February 23, 2025 End: February 23, 2025 Team Status: Inactive Member Role/Relationship Status Dates Petty Ungerer , EXTRUSION UTILITY WORKER-C Primary Care Provider Active Start: March 01, 2025 End: March 01, 2025 Petty Ungerer , EXTRUSION UTILITY WORKER-C Referring Provider Active Start: March 01, 2025 End: March 01, 2025 Tomás BRANCH PA Attending Provider Active Sta rt: March 01, 2025 End: March 01, 2025 Team Status: Inactive Member Role/Relationship Status Dates Dr. Alden Miner , DO Emergency Provider Active Start: April 07, 2025 End: April 08, 2025 Melquiades Quintanilla EXTRUSION UTILITY WORKER, EXTRUSION UTILITY WORKER-C Primary Care Provider Active Start: April 07, 2025 End: April 08, 2025 Team Status: Inactive Member Role/Relationship Status Dates Petty Ungerer , EXTRUSION UTILITY WORKER-C Primary Care Provider Active Start: February 23, 2025 End: February 23, 2025 Petty Ungerer , EXTRUSION UTILITY WORKER-C Referring Provider Active Start: February 23, 2025 End: February 23, 2025 Tomás BRANCH PA Attending Provider Active Sta rt: February 23, 2025 End: February 23, 2025 Team Status: Inactive Member Role/Relationship Status Dates Petty Ungerer , EXTRUSION UTILITY WORKER-C Primary Care Provider Active Start: March 01, 2025 End: March 01, 2025 Petty Ungerer , EXTRUSION UTILITY WORKER-C Referring Provider Active Start: March 01, 2025 End: March 01, 2025 Tomás BRANCH PA Attending Provider Active Sta rt: March 01, 2025 End: March 01, 2025 Team Status: Inactive Member Role/Relationship Status Dates Dr. Alden Miner DO Attending Provider Active Start: April 07, 2025 End: April 08, 2025 Dr. Alden Miner DO Emergency Provider Active Start: April 07, 2025 End: April 08, 2025 Melquiades Quintanilla NP, EXTRUSION UTILITY WORKER-C Primary Care Provider Active Start: April 07, 2025 End: April 08, 2025 Team Status: Inactive Member Role/Relationship Status Dates Melquiades Quintanilla NP, [employer]TR[employer] UT[employer] WORKER-C Primary Care Provider Active Start: May 19, 2025 End: May 19, 2025 Melquiades Quintanilla NP, NP-C Referring Provider Active Start: May 19, 2025 End: May 19, 2025 SARINA Darnell Attending Provider Active Sta rt: May 19, 2025 End: May 19, 2025 Goals (unrecognized section and content) Goals [...] BE BASED ON THE PRIMARY CLINICAL RECORDS. [facility] [employer] provides no warranty or guarantee of the accuracy or completeness of information in this document.
--- NOTE | 2025-08-09 22:43 | EDS_ITS ---
HPI History of Present Illness Chief Complaint: Other, Pain/Inj Detail of Chief Complaint: throat swelling Informant: patient Narrative Narrative: Patient is a 25-year-old female presenting with odynophagia and dyspnea when lying supine. - Reports feeling like a grape is lodged in her throat, causing discomfort when swallowing and difficulty breathing when lying down; symptoms have worsened over the past week. - Denies chest or abdominal discomfort. - Denies sore throat, fevers, or other sx of acute illness. - Denies pain/symptoms at rest when sitting up and not swallowing. - Has a history of a mass in the jaw area, discovered on imaging after a viral infection caused throat swelling and airway constriction. - Underwent an MRI, which revealed the mass; was transferred to [facility] for further evaluation by Neuro and ENT specialists. - Due to the mass's location, surgical removal was not feasible without causing trismus; instead, she received bleomycin injections in 2022 and was monitored in the ICU for a day. - Did not follow up with the recommended repeat MRI and appointments due to side effects from the injections and feeling fine. - Has experienced intermittent sharp pains in the neck but notes that swallowing has never been quite normal since the initial diagnosis. - Recently attempted to schedule a follow-up appointment but was informed that the original provider is no longer available; next available appointment is in August. - Expresses fear and concern about current symptoms and potential need for steroids, as previously administered during initial treatment, but I was sick/ill then. PFSH PFSH Medical History Hx of arteriovenous malformation (AVM) Wears contact lenses Wears glasses MRSA infection Depression Anxiety Alcohol use Loss of consciousness Smoker Home Medications ?Medication ?Instructions ?Recorded ?Last Taken ?Type fluconazole 150 mg tablet 150 mg PO ONCE #2 tabs 05/19 Unknown Rx prednisone 10 mg tablet 10 mg PO UD #38 tabs 5 Unknown Rx Allergy/AdvReac Type Severity Reaction Status Date / Time No Known Allergies Allergy Verified 08/09/25 21:14 Surgical History History of tonsillectomy and adenoidectomy Social History housing: house Smoking Status: Current every day smoker tobacco type: e-cigarettes ROS ROS ED Constitutional Constitutional ED: Denies chills or fever(s) Eyes Eyes: Denies change in vision or diplopia ENT ENT ED: Reports as per HPI, throat swelling and other Details: odynophagia ; Denies rhinorrhea or sore throat Cardiovascular Cardiovascular: Reports orthopnea; Denies chest pain or palpitations Respiratory/Chest Respiratory/Chest: Reports orthopnea; Denies cough or dyspnea Gastrointestinal Gastrointestinal: Denies abdominal pain, diarrhea, nausea or vomiting Genitourinary Genitourinary ED: Denies dysuria or hematuria Musculoskeletal Musculoskeletal: Denies back pain or neck pain Integumentary Denies abscess or rash Neurologic Neurologic: Denies headache(s), paresthesias or weakness Psychiatric Psychiatric: Denies anxiety or suicidal thoughts EXAM Physical Exam Const Vital Signs: 08/09/25 21:14 08/09/25 21:22 08/09/25 23:14 Temperature 97.1 F L Temperature Source Temporal Pulse Rate 83 80 Respiratory Rate 16 18 Respiratory Effort Normal Non-Labored Respiratory Pattern Normal Blood Pressure 143/92 H 112/78 Blood Pressure Mean 109 89 Pulse Ox 97 98 Oxygen Delivery Method Room Air 08/10/25 00:12 Temperature 98.2 F Temperature Source Pulse Rate 80 Respiratory Rate 18 Respiratory Effort Respiratory Pattern Blood Pressure 112/78 Blood Pressure Mean 89 Pulse Ox 98 Oxygen Delivery Method Positive well nourished and well developed General Appearance ED: well developed and NAD HEENT Reports moist mucous membranes HEENT Narrative: Posterior oropharynx is clear except for prominent soft tissue near the base of the tongue symmetric. No stridor. Normal speech while sitting and in no distress. No trismus. Floor the mouth is soft and nondistended. Normal- appearing tongue otherwise. Unremarkable dentition and oral mucosa. normocephalic and atraumatic Eyes PERRL and EOMs intact bilaterally Neck full ROM and supple Neck Narrative: Mild submandibular tenderness no palpable lymphadenopathy or objective swelling or asymmetry. Resp normal respiratory effort and clear to auscultation bilaterally Cardio regular rate and regular rhythm GI non-distended Back/Spine General Back: other FROM Extremity normal to inspection General Extremety ED: Negative for edema, pulses abnormal or tenderness General Extremity: Negative for edema or pulses abnormal Neuro oriented x3, CN's II-XII intact bilaterally and no sensory deficits noted Sensorium / Orientation: awake and alert Motor Exam: strength 5/5 throughout Skin no rashes or lesions noted and no wounds MDM MDM MDM Narrative Medical decision making narrative: Assessment: The patient is a 25-year-old female presenting for one-week history of worsening oropharyngeal dysphagia and orthopnea associated with 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 She reports sensation of a ?grape? lodged in her throat and difficulty breathing when supine. Neck CT tonight demonstrates two abnormal soft-tissue masses (right pterygoid ~4 cm, retrolingual ~2 cm) unchanged from 2023 imaging, making acute enlargement unlikely. Symptoms are therefore most likely due to inflammatory swelling around the stable AVM; will trial systemic steroids for symptomatic relief while awaiting outpatient [id number] follow- up. Plan: - Established IV access; obtained screening labs. - Administered first dose IV steroids in ED; provided oral steroid taper prescription. - Images electronically forwarded to [facility] for upcoming [id number] oncology visit. - Discharged home with instructions to sleep head-elevated or prone, return for worsening dyspnea, stridor, or inability to handle secretions. Diagnostics: - CT neck with contrast: two previously known masses?right pterygoid lesion 4 cm and retrolingual lesion 2 cm?appear unchanged compared with 2023 study; no new airway compromise. Reevaluations: - Discussed CT results with patient; unchanged size explained, plan for steroid taper reviewed, patient voiced understanding and agreement. History & Record Review Additional record(s) reviewed:: Prior outpatient record (CT neck soft tissue 2022; no MRI in our system) Lab Data Attestation: I reviewed the patient's lab results. Labs: Laboratory Results - last 24 hr 08/09/25 22:43 WBC 7.6 RBC 4.50 Hgb 13.8 Hct 40.3 MCV 89.6 MCH 30.7 MCHC 34.2 RDW Std Deviation 40.6 RDW Coeff of Koby 12.3 Plt Count 269 MPV 9.7 Immature Gran % (Auto) 0.100 Neut % (Auto) 45.8 L Lymph % (Auto) 43.6 H [place] % (Auto) 9.6 Eos % (Auto) 0.4 Baso % (Auto) 0.5 Absolute Neuts (auto) 3.5 Absolute Lymphs (auto) 3.30 Nucleated RBC % 0 Sodium 140 Potassium 3.5 Chloride 102 Carbon Dioxide 25.8 Anion Gap 12 BUN 19 Creatinine 0.89 Estim Creat Clear Calc 98.78 Est GFR (MDRD) Non-Af 92 BUN/Creatinine Ratio 21.1 H Glucose 69 L Calcium 9.1 Radiography Diagnostic Testing: Clinical Impression(s) from Imaging Studies Soft Tissue Neck CT 08/09/25 23:00 IMPRESSION: Unchanged 4 cm soft tissue mass with calcifications within the right home comfort advisor space medial to the right ramus of the mandible with effacement of the right parapharyngeal space. Unchanged 1.2 x 2 cm soft tissue mass in the midline of the posterior aspect of the oropharynx at the level of the mouth anterior to the epiglottis. 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 Reading Location: [place] [address] Discharge Plan Triage Chief Complaint: Other, Pain/Inj ED Provider: Joe Chambers Dx/Rx/DC Orders Clinical Impression: Dysphagia, oropharyngeal phase, Orthopnea, Multiple masses of neck Instructions: ED Dysphagia (Adult) Prescriptions: New prednisone 10 mg tablet 10 mg PO UD Qty: 38 0RF Rx Instructions: Take 4 tablets daily for 5 days, then 3 daily for 3 days, then 2 daily for 3 days, then 1 a day for 3 days No Action fluconazole 150 mg tablet 150 mg PO ONCE Qty: 2 0RF Rx Instructions: may repeat dose after 72 hours Primary Care Provider: Kimmy Quintanilla NP Referrals: your head & neck specialist [Other] - As soon as possible Activity Restrictions/Additional Instructions: - A CT scan of your neck was completed today and compared with your 2022 scan; the two abnormal areas are unchanged in size. - You received an IV steroid dose tonight and have a prescription for an oral steroid taper. Begin the taper either night of 08/10 or AM of 08/11; steroids may help reduce possible swelling around the mass and usually start to work the next day. - Today?s CT images and report have been sent to the [facility] head and neck team for your specialist to review before your next visit. - Keep your scheduled follow-up with the head and neck specialist at [facility] on September 09. Print Language: Honduran Disposition Disposition: Home, Self Care
[2025-08-09 22:54] LABS: Hematocrit 40.3 % (37-47); Hemoglobin 13.8 g/dL (12.0-15.0); Immature Granulocytes Count 0.010 X10^3/uL (0.0-0.0); Mean Corp Hgb Conc 34.2 g/dL (32-36); Mean Corpuscular Volume 89.6 fL (81-99); Mean Platelet Vol. 9.7 fl (6.2-12.0); NRBC Flagged by Analyzer 0 % (0-5); Platelet Count 269 K/mm3 (150-450); RBC Distribution Width CV 12.3 % (11.6-14.6); RBC Distribution Width SD 40.6 fl (35.1-43.9); Red Blood Count 4.50 M/mm3 (4.2-5.4); White Blood Count 7.6 K/mm3 (4.4-11.0)
--- NOTE | 2025-08-09 23:00 | CT_ITS ---
PROCEDURE: SOFT TISSUE NECK WITH CONTRAST 08/09/2025 REASON FOR EXAM: THROAT SWELLING, HX NECK MASS (X2?) TECHNIQUE: Procedure Code: CTNEW Modality: CT Procedure: SOFT TISSUE NECK WITH CONTRAST CONTRAST: OMNIPAQUE 350 VOLUME: 100 mL One or more dose reduction techniques were used (e.g., Automated exposure control, adjustment of the mA and/or kV according to patient size, use of iterative reconstruction technique). RADIATION DOSE SUMMARY: CTDlvol: 14.78 mGy DLP: 446 mGycm COMPARISON: 03/03/2023. FINDINGS: Unchanged 4 cm soft tissue mass with calcifications within the right lokie engineer space medial to the right ramus of the mandible with effacement of the right parapharyngeal space. Unchanged 1.2 x 2 cm soft tissue mass in the midline of the posterior aspect of the oropharynx at the level of the mouth anterior to the epiglottis. 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 Normal bilateral parotid glands. Normal bilateral parapharyngeal spaces. Normal bilateral carotid spaces. Normal bilateral sublingual and submandibular glands. Normal sublingual and submandibular spaces. Normal visualized nasopharynx. Normal retropharyngeal space. Normal perivertebral space. Normal visualized bilateral faucial tonsils. The visualized tongue, tongue base are normal. The visualized cervical lymph nodes (levels I-) are within normal size limits, and maintain normal morphology. Normal epiglottis, bilateral vallecula and hypopharynx. The pre-epiglottic and paraglottic adipose spaces are normal. Normal visualized bilateral piriform sinuses, aryepiglottic folds, vocal cords, and arytenoid-cricoid articulations. Normal subglottic trachea. Normal bilateral lobes of the thyroid gland. Normal visualized pulmonary apices. Normal remaining visualized paranasal sinuses. Normal visualized cervical spine. CT/Soft Tissue Neck WITH Contrast IMPRESSION: Unchanged 4 cm soft tissue mass with calcifications within the right lokie engineer space medial to the right ramus of the mandible with effacement of the right parapharyngeal space. Unchanged 1.2 x 2 cm soft tissue mass in the midline of the posterior aspect of the oropharynx at the level of the mouth anterior to the epiglottis. 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 Reading Location[facility]
[2025-08-09 23:14] VITALS: BP 112/78; PULSE 80; RESP 18; O2SAT 98
[2025-08-09 23:25] LABS: Anion Gap 12 (5-15); BUN 19 mg/dL (4-19); BUN/Creat Ratio 21.1 RATIO (10-20); Calcium,Total 9.1 mg/dL (7.6-11.0); Carbon Dioxide 25.8 mmol/L (21.0-32.0); Chloride 102 mmol/L (98-108); Estimated Creatinine Clearance 98.78 ml/min (50-250); Glucose 69 mg/dL (70-99); Potassium 3.5 mmol/L (3.3-5.1)
[2025-08-10 00:12] VITALS: BP 112/78; PULSE 80; RESP 18; TEMP 36.8; O2SAT 98
== END 2025-08-10 00:24 | disposition home or self-care (01) ==
PROVIDERS: Emergency Provider Emergency Medicine; PCP Nurse Practitioner Family; Visit Provider Emergency Medicine
DX: R13.12 Dysphagia, oropharyngeal phase (principal); R22.1 Localized swelling, mass and lump, neck; R06.89 Other abnormalities of breathing; R06.01 Orthopnea; F17.290 Nicotine dependence, other tobacco product, uncomplicated
CPT/HCPCS: 70491; 80048; 85025; 96374; 99283; Q9967; A4216